=== PATIENT | female | born 1995 | race Caucasian/White ===

== ENCOUNTER 2017-07-13 22:23 | Emergency (ER) | payer MEDICAID, SELFPAY ==
[2017-07-13 22:24] VITALS: BP 118/75; PULSE 83; RESP 16; TEMP 36.7; O2SAT 98; BMI 26.2
--- NOTE | 2017-07-13 23:15 | RAD_ITS ---
STUDY: X-RAY - LUMBAR SPINE REASON FOR EXAM: Female, 22 years old. Lower back pain TECHNIQUE: 3 view(s) of the lumbar spine were obtained. COMPARISON: None FINDINGS: Normal lumbar lordosis. There is no substantial scoliosis. There is a normal alignment of the vertebrae. Normal vertebral bodies and endplates. Normal disc space heights. The soft tissue structures are unremarkable. RAD/Lumbar Spine 2 or 3 Views IMPRESSION: Normal x-ray examination of the lumbar spine. Electronically Signed: Yareli Murphy MD at 1:03 EDT Tel , Service support ,
[2017-07-13] MEDS: Orphenadrine 60 MG/2 ML Ampul IM (23:31)
[2017-07-13] MEDS: Ketorolac 30 MG/ML Syringe IM (23:31)
--- NOTE | 2017-07-13 23:41 | ED.VISSUMM ---
- ER Visit Summary Date of Service: 07/13/17 Chief Complaint: [] Back pain History of Present Illness: The patient is a 22 F [] complaining of acute on chronic back pain after reportedly falling down 12 steps. Patient denies hitting her head or neck. She reports she had a panic attack before falling on steps. She reports she has chronic back pain which she has received 2 spinal injections in the past from pain management. Denies any saddle anesthesia or incontinence. Does report slight radiation of the pain down her left lower extremity. Physical Examination: [] Afebrile, vital signs stable. 22-year-old female no acute distress. Examination of the back reveals mild mid line lumbosacral tenderness without step-off or gross deformity. Benign examination. Remainder of exam is unremarkable. Test Results: [] Lumbosacral x-rays 3 views reveal no acute process. Emergency Department Course and Treatment: [] Patient was given IM Toradol and IM Norflex for analgesia. Her mother is at the bedside will drive her home. X-rays were negative. Patient was encouraged to follow-up with pain management. Treatment Plan: [] Follow-up with PCP or pain management. Disposition: [] Discharge, stable. Impression: [] Acute on chronic back pain This note was generated with [employer] dictation software. It may contain incorrect words, spelling, and punctuation that were not noted in review of the chart prior to signing ED Disposition - Plan for ED Patient: Chief Complaint: Back Referrals: Hortencia Frias MD [Primary Care Provider] -
--- NOTE | 2017-07-13 23:43 | ED.DEP ---
ED Disposition - Plan for ED Patient: Disposition: Home or Assisted Living Chief Complaint: Back Instructions: ED Low Back Pain Injury Referrals: Hortencia Frias MD [Primary Care Provider] -
[2017-07-13 23:50] VITALS: BP 106/60; PULSE 78; RESP 16; O2SAT 99
== END 2017-07-13 23:51 | disposition home or self-care (01) ==
PROVIDERS: Emergency Provider Emergency Medicine; Family Provider Pediatrics; PCP Pediatrics
DX: M54.5 Low back pain (principal); G89.29 Other chronic pain
CPT/HCPCS: 72100; 96372; 99282

== ENCOUNTER 2017-12-11 22:00 | Emergency (ER) | payer MEDICAID, SELFPAY ==
[2017-12-11 22:01] VITALS: BP 130/72; PULSE 83; RESP 14; TEMP 37.1; O2SAT 98; BMI 26.2
[2017-12-11 22:05] VITALS: BP 130/72; PULSE 68; RESP 14; O2SAT 98
[2017-12-11] MEDS: Ketorolac 60 MG/2 ML Vial IM (22:57)
[2017-12-11] MEDS: Orphenadrine 60 MG/2 ML Ampul IM (22:58)
--- NOTE | 2017-12-11 23:56 | NURSING ---
ATTEMPTED TO AMBULATE PT WITH THE HELP OF FATHER AND BOY FRIEND. PT WAS ABLE TO STAINED AND SHUFFLE FOR 2 STEPS. GAIT WAS WEAK AND UNSTEADY. PLACED BACK IN BED AND DR IS INFORMED. ADDITIONAL MEDICATION PLACED. Mitch ESCOBAR RN. [id number]
--- NOTE | 2017-12-12 00:11 | RAD_ITS ---
STUDY: X-RAY - LUMBAR SPINE REASON FOR EXAM: Female, 22 years old. Chronic low back pain, no known injury. TECHNIQUE: 4 view(s) of the lumbar spine were obtained. COMPARISON: 07/13/2017. 09/23/2014. FINDINGS: Normal lumbar lordosis. There is no substantial scoliosis. There is a normal alignment of the vertebrae. Normal vertebral bodies and endplates. Normal disc space heights. Chronic spondylolysis without spondylolisthesis L4 on L5. The soft tissue structures are unremarkable. 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 His may be the source of patient's back pain. Further assessment with MRI could be providing additional detail. There is no significant interval change. Electronically Signed: aMvis Tillman MD at 1:07 EDT , Service support ,
--- NOTE | 2017-12-12 00:15 | ED.VISSUMM ---
- ER Visit Summary Date of Service: 12/12/17 Chief Complaint: Back pain History of Present Illness: The patient is a 22 F with low back pain. Patient has a long-term history of back pain on and off. She has had bone scans and injections. She presents today with pain in her bilateral lower back that started when she got out of bed this evening after she had been watching TV. No recent activities or injuries otherwise. No associated symptoms other than pain. She denies abdominal or GI symptoms. 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 Denies fevers. Denies any history of fractures or back surgery. No weakness or numbness, but her movement is limited secondary to pain. Physical Examination: Afebrile and vital signs unremarkable. Patient appears uncomfortable but is not toxic or in distress. Abdomen is soft and nontender. Lumbar back is diffusely tender to palpation. Straight leg raise is negative. Good strength and sensation distally. Test Results: See below Emergency Department Course and Treatment: Patient has been evaluated for this in the past. She has had negative x-rays and other imaging studies. She has received pain meds and muscle relaxers in the past and had good relief. I initially treated her with a dose of Toradol and Norflex. On reevaluation, she was unable to ambulate. She took a couple shuffling steps with the help of a nurse, but was unable to tolerate any additional ambulation secondary to pain. No new or different symptoms otherwise on reevaluation. Given the severity of her pain, lumbar x-rays were ordered. We will check some basic labs and a test. She was given a dose of morphine IV. The oncoming physician will check the results. I suspect she will need admission for intractable pain and inability to ambulate. Treatment Plan: As above Disposition: Admission pending further evaluation. Impression: 1. Intractable lumbar back pain This note was generated with [employer] dictation software. It may contain incorrect words, spelling, and punctuation that were not noted in review of the chart prior to signing ED Disposition - Plan for ED Patient: Chief Complaint: Back Referrals: Hortencia Frias MD [Primary Care Provider] -
[2017-12-12] MEDS: Morphine 4 MG/ML Syringe IV ×2 (00:16→01:25)
[2017-12-12 00:18] VITALS: BP 112/80; PULSE 79; RESP 16
--- NOTE | 2017-12-12 00:18 | ED.DCSUM_ITS ---
- ER Visit Summary Date of Service: 12/12/17 Chief Complaint: Back pain History of Present Illness: The patient is a 22 F with low back pain. Patient has a long-term history of back pain on and off. She has had bone scans and injections. She presents today with pain in her bilateral lower back that start ed when she got out of bed this evening after she had been watching TV. No recent activities or injuries otherwise. No associated symptoms other than pain. She denies abdominal or GI symptoms. Denies or SECURITIES ATTORNEY symptoms. Denies fevers. Denies any history of fractures or back surgery. No weakness or numbness, but her movement is limited secondary to pain. Physical Examination: Afebrile and vital signs unremarkable. Patient appears uncomfortable but is not toxic or in distress. Abdomen is soft and nontender. Lumbar back is diffusely tender to palpation. Straight leg raise is negative. Good strength and sensation distally. Test Results: See below Emergency Department Course and Treatment: Patient has been evaluated for this in the past. She has had negative x-rays and other imaging studies. She has received pain meds and muscle relaxers in the past and had good relief. I initially treated her with a dose of Toradol and Norflex. On reevaluation, she was unable to ambulate. She took a couple shuffling steps with the help of a nurse, but was unable to tolerate any additional ambulation secondary to pain. No new or different symptoms otherwise on reevaluation. Given the severity of her pain, lumbar x-rays were ordered. We will check some basic labs and a test. She was given a dose of morphine IV. The oncoming physician will check the results. I suspect she will need admission for intractable pain and inability to ambulate. Treatment Plan: As above Disposition: Admission pending further evaluation. Impression: 1. Intractable lumbar back pain This note was generated with [employer] dictation software. It may contain incorrect words, spelling, and punctuation that were not noted in review of the chart prior to signing ED Disposition - Plan for ED Patient: Chief Complaint: Back Referrals: Hortencia Frias MD [Primary Care Provider] -
[2017-12-12 00:36] LABS: Absolute Lymphocyte Count 2.89 X10^3/ul (0.83-4.51); Absolute Neutrophil Count 4.5 X10^3/uL (2.0-7.7); Basophil# 0.03 X10^3/uL; Basophil% 0.4 % (0-1); Eosinophil# 0.09 X10^3/uL; Eosinophils% 1.1 % (0-5); Hematocrit 39.1 % (37-47); Hemoglobin 13.1 g/dl (12.0-15.0); Lymphocyte # 2.89 X10^3/ul (4.0); Lymphocyte % 35.9 % (19-41); Mean Corp Hgb Conc 33.5 g/gl (32-36); Mean Corpuscular Hgb 31.6 pg (27.0-32.0); Mean Corpuscular Volume 94.2 fL (81-99); Mean Platelet Vol. 11.7 fl (6.2-12.0); Monocyte# 0.57 X10^3/uL; Monocyte% 7.1 % (0-10); Neutrophil # 4.45 X10^3/uL (2.7-7.7); Neutrophil % 55.3 % (47-70); POSITIVE COUNT NO; POSITIVE DIFFERENTIAL NO; POSITIVE MORPHOLOGY NO; Platelet Count 251 K/mm3 (150-450); RBC Distribution Width CV 11.8 % (11.6-14.6); Red Blood Count 4.15 M/mm3 (4.2-5.4); White Blood Count 8.1 K/mm3 (4.4-11.0)
[2017-12-12 00:45] LABS: Anion Gap 6 (5-15); BUN 12 mg/dL (7-18); BUN/Creat Ratio 15.2 RATIO (10-20); Calcium,Total 8.6 mg/dL (8.5-10.1); Chloride 109 mmol/L (98-107); Creatinine, Serum 0.79 mg/dL (0.55-1.02); EST Glomerular Filtration Rate 98 mL/min (>60); Est Glom Filt Rate - Afr Amer 119 mL/min (>60); Estimated Creatinine Clearance 93.97 ml/min; Glucose 104 mg/dL (74-106); Potassium 3.9 mmol/L (3.5-5.1); Sodium Level 142 mmol/L (136-145)
[2017-12-12 00:53] LABS: Pregnancy, Serum, hCG Quali. NEGATIVE Negative (0-9 Nonpreg)
[2017-12-12 03:12] LABS: Erythrocyte Sedimentation Rate < 1 mm/hr (0-20)
[2017-12-12 03:14] LABS: CRP 2.91 mg/L (0.0-3.0)
[2017-12-12 03:26] VITALS: BP 112/70; PULSE 82; RESP 18; O2SAT 99
[2017-12-12 03:35] VITALS: BP 112/70; PULSE 82; RESP 18; O2SAT 99
== END 2017-12-12 05:02 | disposition short-term general hospital (02) ==
PROVIDERS: Emergency Medicine; Emergency Provider Emergency Medicine; Family Provider Pediatrics; PCP Pediatrics
DX: M54.5 Low back pain (principal); M54.16 Radiculopathy, lumbar region; Z79.3 Long term (current) use of hormonal contraceptives
CPT/HCPCS: 72100; 80048; 84703; 85025; 85652; 86140; 96372; 96374; 96376; 99285; A4216

== ENCOUNTER 2018-12-10 12:53 | Emergency (ER) | payer MEDICAID, SELFPAY ==
[2018-12-10 12:54] VITALS: BP 114/71; PULSE 96; RESP 16; TEMP 36.5; O2SAT 100; BMI 27.9
--- NOTE | 2018-12-10 13:09 | EKG12_ITS ---
Test Reason : ABD PAIN Blood Pressure : / mmHG Vent. Rate : 080 BPM Atrial Rate : 080 BPM P-R Int : 160 ms QRS Dur : 076 ms QT Int : 348 ms P-R-T Axes : 052 036 034 degrees QTc Int : 401 ms Normal sinus rhythm Normal ECG Confirmed by GREGORY RCUZ, CHRISTINE ([id number]), slot editor ROBY WILLS ([id number]) on 12/15/2018 8:38:47 AM Referred By: SARAH Confirmed By:CHRISTINE JENKINS MD
--- NOTE | 2018-12-10 13:10 | CT_ITS ---
STUDY: CTA CHEST REASON FOR EXAM: Female, 23 years old. 3 day history of chest pain and nausea. The patient is 24 weeks . The patient was shielded appropriately. RADIATION DOSAGE (If Supplied By Facility): CTDIvol = ( 13.72 ) mGy, DLP = ( 370.79 ) mGycm TECHNIQUE: The examination was performed with the intravenous administration of IV Isovue 370 100. Post-processing of the angiographic images was performed, with multiplanar reformation and 3D reconstruction. Individualized dose optimization techniques were used for this CT. COMPARISON: None. FINDINGS: Normal enhancement of the main pulmonary artery and right and left pulmonary arteries. Normal enhancement of the bilateral peripheral pulmonary arteries. There is no demonstrated pulmonary embolism. Normal thoracic aorta and visualized great vessels. There is no demonstrated aortic dissection. Normal heart and pericardium. Normal mediastinum. Normal hilar regions. Normal visualized trachea and bronchi. The lungs are well expanded. Normal pulmonary parenchyma. Normal pleura. Normal chest wall structures. Normal osseous structures. Normal visualized upper abdomen. CT/CTA Chest W/WO Contrast IMPRESSION: Normal CTA chest examination, without a demonstrated pulmonary embolism or arterial dissection. Electronically Signed: Juan Marie, at 14:17 EDT , Service support ,
--- NOTE | 2018-12-10 13:10 | ED.DCSUM_ITS ---
- ER Visit Summary Date of Service: 12/10/18 Chief Complaint: Abdominal and chest pain History of Present Illness: The patient is a 23 F who presents with upper abdominal and chest pain that has been constant for the past 3 days. Patient admits to stabbing pain in her upper abdomen and substernal area. Patient states this is worse with coughing and with movement. Patient states the pain improves with rest and keeping still. Patient admits to an episode of hemoptysis yesterday where she coughed up approximately a teaspoon of blood. Patient admits to some shortness of breath. Patient also admits to some nausea and vomiting. Patient is approximately 24 weeks . Patient also admits to some pain in her back but states she has a history of prior back problems. Physical Examination: Vital signs are stable. Patient is afebrile. Patient is in no acute distress. Oral mucosa is pink and moist. Neck is supple. Trachea is midline. There is no JVD. Heart was regular rate and rhythm. Lungs are clear and equal bilaterally. Abdomen is soft. Bowel sounds are normal. There is epigastric tenderness. There is no rebound or guarding noted. There is a gravid uterus noted. Cranial nerves II through XII are intact. There are no focal motor or sensory deficits noted. Test Results: EKG showed sinus rhythm with a rate of 80. There are no acute ST or T wave changes. CBC shows a mild leukocytosis of 16.0 with a hemoglobin of 11.7 and hematocrit 35.0. These are likely related to the . Comprehensive metabolic profile was normal. Urinalysis was normal. CT scan of the chest was obtained. There is no evidence of pulmonary embolism. Emergency Department Course and Treatment: Patient still had some epigastric pain on reevaluation. Patient states that her GOLF BALL INSPECTOR wants her to go to the women's health clinic from the emergency department for further evaluation. Patient understands and is agreeable with the plan. All questions were answered. Disposition: Discharge home Impression: Epigastric abdominal pain This note was generated with [employer] dictation software. It may contain incorrect words, spelling, and punctuation that were not noted in review of the chart prior to signing ED Disposition - Plan for ED Patient: Disposition: Home or Assisted Living Diagnosis: Chest pain, Instructions: ABDOMINAL PAIN, Unknown Cause, (Female) Referrals: Hortencia Frias MD [Primary Care Provider] - 5-7 Days Anna Bhakta MD [STAFF PHYSICIAN] - Keep Bhupinder appointment
[2018-12-10 13:15] VITALS: BP 94/69; PULSE 83; RESP 15; O2SAT 98
[2018-12-10] MEDS: 0.9% Normal Saline 1,000 ML 1000 ML IV (13:16)
[2018-12-10 13:29] LABS: Absolute Lymphocyte Count 1.46 X10^3/uL (0.83-4.51); Absolute Neutrophil Count 13.4 X10^3/uL (2.0-7.7); Basophil# 0.05 X10^3/uL; Basophil% 0.3 % (0-1); Eosinophil# 0.05 X10^3/uL; Eosinophils% 0.3 % (0-5); Hemoglobin 11.7 g/dL (12.0-15.0); Lymphocyte # 1.46 X10^3/ul (4.0); Lymphocyte % 9.1 % (19-41); Mean Corp Hgb Conc 33.4 g/dL (32-36); Mean Corpuscular Hgb 32.7 pg (27.0-32.0); Mean Corpuscular Volume 97.8 fL (81-99); Mean Platelet Vol. 10.8 fl (6.2-12.0); Monocyte# 0.89 X10^3/uL; Monocyte% 5.6 % (0-10); NRBC Flagged by Analyzer 0 % (0-5); Neutrophil # 13.41 X10^3/uL (2.7-7.7); Neutrophil % 83.6 % (47-70); Platelet Count 231 K/mm3 (150-450); RBC Distribution Width CV 12.9 % (11.6-14.6); RBC Distribution Width SD 46.2 fl (35.1-43.9); Red Blood Count 3.58 M/mm3 (4.2-5.4)
[2018-12-10 13:31] LABS: Mucous, Urine 0 SEEN /hpf (<or=2+); Red Blood Cells-Urine 0 SEEN /hpf (0-5)
[2018-12-10 13:33] LABS: Color, Urine Yellow (Yellow); Glucose, Dipstick Normal (Normal); Ketone-Dipstick Negative (Negative); Leukocyte Esterase-Dipstick 25 /ul (Negative); Nitrite-Dipstick Negative (Negative); Occult Blood-Urine Negative /ul (Negative); Protein-Dipstick Negative (Negative); Urine Bilirubin Dipstick Negative (Negative); Urine Clarity Sl. Cloudy (Clear); Urine Urobilinogen Normal (Normal); Urine pH 6.5 (5.0 - 8.0)
[2018-12-10 13:43] LABS: ALB/GLOB Ratio 0.7 RATIO (0.9-2.4); AST(SGOT) 13 U/L (15-37); Alanine Aminotransfer ALT/SGPT 26 U/L (13-56); Albumin, Serum 2.8 g/dL (3.2-5.0); Alkaline Phosphatase 75 U/L (45-117); Anion Gap 7 (5-15); BUN 9 mg/dL (7-18); BUN/Creat Ratio 17.5 RATIO (10-20); Calcium,Total 8.7 mg/dL (8.5-10.1); Chloride 107 mmol/L (98-107); Creatinine, Serum 0.52 mg/dL (0.55-1.02); EST Glomerular Filtration Rate 159 mL/min (>60); Est Glom Filt Rate - Afr Amer 193 mL/min (>60); Estimated Creatinine Clearance 141.57 ml/min; Glucose 85 mg/dL (74-106); Lipase 76 U/L (73-393); Potassium 3.7 mmol/L (3.5-5.1); Protein, Total 6.8 g/dL (6.4-8.2); Sodium Level 139 mmol/L (136-145)
[2018-12-10 13:47] LABS: Bacteria 2+ /hpf (None Seen); Squamous Epithelial Cells - UA 0-5 SEEN /hpf (5-10); White Blood Cells 0-5 SEEN /hpf (0-5)
--- NOTE | 2018-12-10 13:48 | ED.RN ---
NO OLD EKG
--- NOTE | 2018-12-10 14:19 | ED.RN ---
YANE CLEMENT CALLED DR SHIELDS WANTS THE PATIENT TO CALL THE OFFICE IF SHE STILL FEELS SHE NEEDS TO BE SEEN.
[2018-12-10 14:42] VITALS: BP 91/57; PULSE 87; RESP 14; O2SAT 100
[2018-12-10 15:22] VITALS: BP 105/77; PULSE 68; RESP 15; O2SAT 98
== END 2018-12-10 15:23 | disposition home or self-care (01) ==
PROVIDERS: Emergency Provider Emergency Medicine; Family Provider Pediatrics; PCP Pediatrics
DX: O26.892 Other specified pregnancy related conditions, second trimester (principal); Z3A.24 24 weeks gestation of pregnancy; R07.9 Chest pain, unspecified; R10.13 Epigastric pain; R06.02 Shortness of breath; R11.2 Nausea with vomiting, unspecified
CPT/HCPCS: 71275; 80053; 81001; 83690; 85025; 93005; 99285; J7030; Q9967; A4216

== ENCOUNTER 2018-12-10 20:36 | Inpatient (IN) | payer MEDICAID, SELFPAY ==
[2018-12-10 12:54] VITALS: BMI 27.9
[2018-12-10 20:37] VITALS: BP 106/66; PULSE 100; RESP 18; TEMP 36.7; O2SAT 96; BMI 28.1
--- NOTE | 2018-12-10 21:10 | CT_ITS ---
STUDY: CT ABDOMEN AND PELVIS WITHOUT CONTRAST REASON FOR EXAM: Female, 23 years old. Right sided abdominal/flank pain radiating into the groin. 24 weeks . Sent to ER by FERRY OPERATOR for appendicitis. RADIATION DOSAGE (If Supplied By Facility): CTDIvol = ( 6.68 ) mGy, DLP = ( 328.74 ) mGycm TECHNIQUE: Transaxial images were obtained from the dome of the diaphragm to the symphysis pubis with oral contrast, and without intravenous contrast. Sagittal and coronal images were reconstructed. Individualized dose optimization techniques were used for this CT. COMPARISON: CTA of the chest, December 10, 2018. FINDINGS: The visualized lung bases are unremarkable. The visualized portions of the heart are within normal limits. Normal liver. Normal gallbladder and extrahepatic biliary system. Normal spleen. Normal pancreas. Normal bilateral adrenal glands. Normal right kidney. Normal left kidney. Contrast from the prior CT is seen within the renal collecting systems and ureters. Normal visualized stomach. Normal small intestine. Normal colon. There is no acute inflammatory process in the right mid abdomen just below the liver. This is thought to be secondary to appendicitis. There is a tubular soft tissue density in the middle of the inflammatory change measuring 1.1 cm in diameter. Normal abdominal aorta. Normal inferior vena cava. Normal retroperitoneum. Urinary bladder is partially collapsed and opacified by contrast. Uterus is markedly enlarged. There is an intrauterine in cephalic presentation. The placenta appears anterior. The adnexa are not identified. No free air or free fluid is seen within the peritoneal cavity. Umbilical hernia of omental fat. Normal osseous structures. CT/Abdomen/Pel W ORAL Cont Only IMPRESSION: 1. Inflammatory change in the right mid abdomen consistent with appendicitis. 2. Advanced intrauterine . N.B. : The above information has been verbally conveyed by Ed Coronado DO to Katelyn Lombardi MD, on 12/10/2018 23:08:39 (ET). Electronically Signed: Ed Coronado DO at 23:09 EDT Tel [phone], Service support ,
[2018-12-10] MEDS: Ondansetron 4 MG/2 ML Vial IV (21:28)
[2018-12-10] MEDS: Morphine 4 MG/ML Syringe IV (21:28)
[2018-12-10 21:41] LABS: Absolute Lymphocyte Count 1.93 X10^3/uL (0.83-4.51); Absolute Neutrophil Count 14.5 X10^3/uL (2.0-7.7); Basophil# 0.05 X10^3/uL; Basophil% 0.3 % (0-1); Eosinophil# 0.03 X10^3/uL; Eosinophils% 0.2 % (0-5); Hematocrit 33.1 % (37-47); Lymphocyte # 1.93 X10^3/ul (4.0); Mean Corp Hgb Conc 33.2 g/dL (32-36); Mean Corpuscular Hgb 32.7 pg (27.0-32.0); Mean Corpuscular Volume 98.5 fL (81-99); Mean Platelet Vol. 11.4 fl (6.2-12.0); Monocyte# 0.93 X10^3/uL; Monocyte% 5.3 % (0-10); NRBC Flagged by Analyzer 0 % (0-5); Neutrophil # 14.46 X10^3/uL (2.7-7.7); Neutrophil % 82.3 % (47-70); Platelet Count 234 K/mm3 (150-450); RBC Distribution Width CV 12.9 % (11.6-14.6); RBC Distribution Width SD 46.1 fl (35.1-43.9); Red Blood Count 3.36 M/mm3 (4.2-5.4); White Blood Count 17.6 K/mm3 (4.4-11.0)
--- NOTE | 2018-12-10 22:39 | ED.VISSUMM ---
- ER Visit Summary Date of Service: 12/10/18 Chief Complaint: Abdominal pain History of Present Illness: The patient is a 23 F presenting with abdominal pain. She states this started 3 days ago. She has nausea with no vomiting. She denies fever. She is 24.5 weeks . She denies vaginal bleeding. She is G1, P0. She was seen in the ED earlier today and had a CT of her chest to rule out PE. Pain is now more in the periumbilical area. She followed up with her PHOTOGRAPHY PROFESSOR after her ER visit today. Discussed with Dr. Millan. She states from an obstetrical standpoint she has been monitored and there is no concern with the baby. She is concerned about possibility of appendicitis. She feels patient will need a CT of her abdomen to rule out appendicitis. Physical Examination: Vitals are stable. Patient is afebrile. Alert no acute distress. HEENT exam is unremarkable. Neck is supple. Lungs are clear and equal bilaterally. Heart is regular rate and rhythm. Abdomen is soft gravid, diffuse tenderness. Extremities are unremarkable. Skin is warm and dry. No focal neurologic deficit. Remainder of exam is unremarkable. Emergency Department Course and Treatment: Patient was given morphine, Zofran IV. CBC shows a white count 17.6. CT abdomen pelvis shows inflammatory change in the right mid abdomen consistent with appendicitis. Advanced intrauterine . heart tones 146. Patient was given Zosyn IV. Discussed with Dr. Millan and Dr. Martinez. Patient will be evaluated by Dr. Martinez in the emergency department. Disposition: Admission Impression: Acute appendicitis, second trimester This note was generated with [employer] dictation software. It may contain incorrect words, spelling, and punctuation that were not noted in review of the chart prior to signing ED Disposition - Plan for ED Patient: Referrals: Hortencia Frias MD [Primary Care Provider] -
[2018-12-10 23:06] VITALS: BP 98/58; PULSE 89; RESP 15; O2SAT 99
[2018-12-11] VITALS (13 sets, daily range): BP systolic 93–128; BP diastolic 52–80; PULSE 78–117; RESP 14–20; TEMP 36.2–37.7; O2SAT 94–99; BMI 28.1; BMI 28.2
--- NOTE | 2018-12-11 | IMM_PTH ---
PATIENT: RODRIGO TAN LOC: MS3 U#:[id number] AGE/SX: 23/F ROOM: MS317 RE12/11/[address]: Dr. Shirley Martinez MD : 1995 BED: 1 DIS: 12/13/2018 SPEC #: [id number] RECD: 12/12/18 11:26 STATUS: DAVINA REQ #: [id number] MILI: 12/11/18 00:[address]: Shirley Martinez DEPT: IMMUNOHISTOCHEMISTRY RECD BY: Johanny Friend ENTERED: 12/12/18 11:28 SP TYPE: IMMUNO OTHR DR: Dr. Hortencia Frias MD Tissues: B - TISSUE SURGICALLY REMOVED Procedures: Brock Ret (add) HBME (add) Vimentin (add) Pankeratin (initial) PHYSICIAN & INSTITUTION [place] [id number] SPECIMEN INFORMATION: Tissue Source: B - Inflammatory mass Clinical Info: Appendicitis Specimen Number: [id number] CPT code: 41233, 05669 x3 METHODOLOGY: Deparaffinized sections of prefer/formalin-fixed tissue or PAP/DQ stained slides are incubated with monoclonal/polyclonal antibodies/oligonucleotide probes. Localization is made via biotin free immunoperoxidase method. Appropriate controls are performed and reacted as expected. Results on target cell population are indicated in the following table: RESULTS: ANTIBODY / CLONE RESULT Block B2 AE1-3 (AE1/AE3/PCK26) positive Vimentin (V9) positive HBME1 (HBME-1) positive CALRET (polyclonal) positive These tests were developed and their performance characteristics determined by [facility]. They may not have been cleared or approved by the U.S. Food and Drug Administration. The FDA has determined that such clearance or approval is not necessary. The above immunohistochemical/dualISH markers are ordered and reviewed by the Pathologist. INTERPRETATION: B. Inflammatory mass, biopsy: Consistent with benign mesothelial cyst. AM:max 12/15/18
--- NOTE | 2018-12-11 00:30 | PCM.CONS.B ---
- Consult Date of Consult: 12/10/18 - Reason for Consult Chief Complaint: abdominal pain History of Present Illness: 23 y/o WF presents with abdominal pain. She states that it started about three days ago. She complains of nausea, but denies emesis. Initially upper abdominal pain and concern was for PE and she underwent chest CT (negative for PE) earlier today. Now pain noted in right lateral aspect and CT scan was obtained of the abdomen which reveals appendicitis. The patient is 24 weeks - intrauterine - first . Has leukocytosis of 17.6K Past Medical History: denies major medical illnesses Past Surgical History: wisdom teeth extraction Medications: vitamins Allergies: Has no known drug allergies Social history: TOB use denies Review of Systems: General - denies fevers Cardiovascular denies chest pain, denies history of heart attack, denies heart problems Pulmonary denies shortness of breath, denies coughing up blood Gastrointestinal as per HPI, denies blood in stools Neurological denies numbness/weakness of extremities, denies seizures Genitourinary denies burning with urination, denies blood in urine Hematological denies spontaneous/prolonged bleeding Skin denies open non healing wounds Musculoskeletal denies history of fractures, denies arthritis Endocrine denies diabetes Psychological denies suicidal ideation, denies hallucinations Physical examination: Vital signs Temp 98.1F HR 89 RR 16 BP 108/72 General WD/WN WF in no apparent distress, alert and oriented, not septic appearing HEENT Normocephalic. EOM intact with sclera clear and no icterus noted. Neck is supple with no jugular venous distention noted. Trachea is midline. Lungs normal breath sounds. No rales/rhonchi/wheezing noted. No labored breathing noted, such as retractions. No cough heard. Heart normal heart sounds. No rubs/clicks/murmurs noted. Abdomen soft with gravid uterus with tenderness right lateral to umbilicus, decreased bowel sounds Extremities no calf tenderness noted. No pitting edema noted. Genitourinary/Rectal deferred Skin normal skin integrity. Neurological cranial nerves II-XII intact. Normal motor strength in arms and legs. No localized numbness detected. Psychological normal affect, patient is calm and appropriate Impression: abdominal pain appendicitis by CT scan leukocytosis Discussion/Plan: I have discussed the above with the patient - also present are patient's parents and boyfriend. I have recommended that patient undergo appendectomy. Given that she is 24 weeks and if she were to deliver prematurely, I have offered transfer to [facility] for intensive nursery care of the premature baby. She refuses and wishes to have surgery at [place]. I have explained the procedure to the patient. I have counseled the patient as to the risks of the procedure, including but not limited to: infection, bleeding, injury to any blood vessels/nerves, scar tissue, injury to any intraabdominal organs, injury to kidney/ureters, injury to bowel/bladder, intraabdominal abscess/bleeding, hernias at incisional sites, wound infections, complications of anesthesia, premature delivery of , etc. the patient understands. She wishes to proceed. I have answered all questions to the patient?s satisfaction and the patient has no further questions.
--- NOTE | 2018-12-11 01:30 | APP_PTH ---
PATIENT: RODRIGO TAN LOC: MS3 U#:[id number] AGE/SX: 23/F ROOM: MS317 RE12/11/[address]: Dr. Shirley Martinez MD : 1995 BED: 1 DIS: 12/13/2018 SPEC #: [id number] RECD: 12/11/18 08:28 STATUS: DAVINA REQ #: [id number] MILI: 12/11/18 01:[address]: Shirley Martinez DEPT: SURGICAL PATHOLOGY RECD BY: Keenan Ruano ENTERED: 12/11/18 08:59 SP TYPE: APPENDIX OTHR DR: Dr. Hortencia Frias MD Tissues: A - Appendix, NOS B - TISSUE SURGICALLY REMOVED Procedures: Surgery Specimen Level III Surgery Specimen Level IV HEADER OPERATION: Appendectomy PRE-OP DIAGNOSIS: Acute appendicitis TISSUE SUBMITTED: A - Appendix, B - Inflammatory mass MICROSCOPIC DIAGNOSIS A. Appendix, appendectomy: Early acute appendicitis. B. Inflammatory mass, biopsy: Fibrovascular tissue with vascular congestion., edema, fibrinoid material and focal acute and chronic inflammation. See comment. 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 Immunohistochemistry ([id number]) supports the above diagnosis. This case was reviewed and diagnosis discussed with Dr. Martinez on 12/11/18. Case has been reviewed in consultation with Dr. Graham who concurs with the above diagnosis. IDC:SJ MICROSCOPIC DESCRIPTION Slides are reviewed. GROSS DESCRIPTION A - Received is one container labeled with the patient's name and designated appendix. The specimen consists of a vermiform appendix measuring 7.6 cm in length and 0.7 cm in greatest diameter. No gross perforations are evident. Stenciling Machine Tender sections are submitted in one cassette. B - Received in fixative is one container labeled with the patient's name and designated inflammatory mass. The specimen consists of a glistening fragment of light to dark hoskins tissue measuring 6.5 x 2 x 1.3 cm. Sections reveal dark hoskins cut surfaces. The specimen is sectioned and submitted in its entirety in four cassettes. / AM:max 12/11/18 TC:1 CPT: 15309, 89912
--- NOTE | 2018-12-11 03:02 | OP.PCM_ITS ---
Report of Operation Date of Procedure: 12/11/18 Pre-Operative Diagnosis: right sided abdominal pain, appendicitis by CT scan, leukocytosis Post-Operative Diagnosis: right sided abdominal pain, inflammatory mass at site of pain, normal appearing appendix Surgery/Procedure Performed:: appendectomy, excision of inflammatory mass Description of Surgical Findings:: inflammatory mass at site of patient's pain - with surrounding adherent omentum with inflammatory changes, normal appearing appendix computer programming manager: Evelio Ramos Type of Anesthesia:: General Anesthesiologist: Clinton Diallo Specimen's removed: inflammatory mass, appendix Estimated Blood Loss (mL): < 5 ml Fluids Replaced: 1000 ml RL Description of Procedure: After informed consent was given, the patient was brought to the Operating Room. Appropriate time out protocol was followed. She was then placed in the supine position. The abdomen was prepped with a sterile surgical skin preparation and sterile surgical drapes were placed. A transverse right mid abdominal incision was then made with a 10 blade scalpel after ascertaining proper landmarks. This site had been previously marked out as to the location that the patient states that she has pain. The skin and subcutaneous tissues were infiltrated with local anesthetic. The subcutaneous tissues were then divided sharply and any hemorrhage was adequately controlled with electrocoagulation. The external oblique fascia and then the internal oblique fascia was incised and the lateral part of the anterior/posterior fascial sheath and musculature were then divided. The transversalis fascia and peritoneum were then opened, carefully avoiding any injury to any intraabdominal tissues. Palpation of the internal organs of the abdomen reveals a firm object at the site of the patient's pain. It was brought up through the incision. It was not the appendix. However, it was inflamed and bluish in coloration and there was inflamed omentum surrounding it. There was also cloudy peritoneal fluid surrounding it. It was then from the surrounding tissues using electrocautery. There did not appear to be a vascular pedicle. It was forwarded to pathology for analysis. The search for the appendix was then done. Palpation of the intraabdominal cavity revealed no other indurated or inflamed masses. The small bowel was brought out to look for a Meckel's - no Meckel's diverticulum was identified. The cecum and terminal ileum was brought out via the wound and the appendix was identified. It appeared normal in nature. The mesentery of the appendix was divided and then ligated with vicryl suture. The base of the appendix was then freed and clamped. The distal aspect was transected after the base of the appendix was tied with 0 vicryl suture. The mucosa of the appendix was then cauterized. The appendiceal stump was then inverted into the cecum with a Z-plasty suture of 3-0 vicryl. The area of dissection was carefully examined and there was no evidence of bleeding or fecal leakage. The transversalis fascia and peritoneum were then approximated with 3-0 vicryl suture. The internal oblique fascia and the external oblique fascia and the posterior and anterior fascia were the reapproximated with interrupted 0 vicryl suture. The Chuy's fascia was reapproximated with 3-0 vicryl suture. Each layer was irrigated with normal saline prior to closure and all irrigant aspirated out. The skin incision was t hen reapproximated with 4-0 monocryl. Cavilon and steristrips were placed for reinforcement of skin closure and a proper sterile dressing was applied. The patient was then extubated and brought to the Recovery Room in stable condition. heart tones were 128. - Complications none noted - Admit VTE Documentation VTE Present on Admission: Yes VTE Mechan Device Prophylaxis: SCD's
[2018-12-11] MEDS: Lactated Ringers 1,000 ML 75 ML IV (03:15)
[2018-12-11] MEDS: Morphine 4 MG/ML Syringe IV ×4 (06:10→21:12)
--- NOTE | 2018-12-11 08:08 | PN.OBGYN_ITS ---
Subjective: pt seen at bedside, painful at incision site. denies VB, LOF, contractions. ambulating and + voiding. Still with some nausea but no vomiting. - Physical Exam Vitals/I&O's: Vital Signs Temp Pulse Resp BP Pulse Ox 97.3 F L 87 16 93/55 L 95 12/11/18 05:45 12/11/18 05:45 12/11/18 05:45 12/11/18 05:45 12/11/18 05:45 Oxygen Delivery Method Room Air Weight: 72.121 kg Body Mass Index (BMI) 28.1 Intake and Output for Last 24 Hours 12/09/18 12/10/18 12/11/18 23:59 23:59 23:59 Intake Total 1330 / 1330 Balance 1330 / 1330 General: Alert, Oriented x3 Abdomen: Soft, Gravid, - - appropriately tender. incision dressing dry and intact Laboratory Results 12/10/18 21:00: WBC 17.6 H, RBC 3.36 L, Hgb 11.0 L, Hct 33.1 L, MCV 98.5, MCH 32.7 H, MCHC 33.2, RDW Std Deviation 46.1 H, RDW Coeff of Jeremy 12.9, Plt Count 234, MPV 11.4, Immature Gran % (Auto) 0.900, Neut % (Auto) 82.3 H, Lymph % (Auto) 11.0 L, [place] % (Auto) 5.3, Eos % (Auto) 0.2, Baso % (Auto) 0.3, Absolute Neuts (auto) 14.5 H, Absolute Lymphs (auto) 1.93, Nucleated RBC % 0 Current Medications Lactated Ringer's () 1,000 mls @ 75 mls/hr IV .[id number] OSCAR Last Infusion: 12/11/18 06:59 Dose: 75 mls/hr Documented by: Morphine Sulfate () 4 mg IV Q1H PRN PRN PRN Reason: Pain Score 6-10/10 Last Admin: 12/11/18 06:10 Dose: 4 mg Documented by: Ondansetron HCl (Zofran) 4 mg IV Q8H PRN PRN PRN Reason: NAUSEA/VOMITING Medical Necessity - Tobacco Use Smoking Status: Never smoker Assessment/Plan POD#0- s/p Appendectomy and removal of inflamed cyst by GEN SURG Dr. Martinez 1) mgmt by gen surgery- Obstetrically pt is stable at this time - FHR remains category 1 no contractions noted. 2) pt to follow up next week for OB exam 3) defer further mgmt to gen surg
--- NOTE | 2018-12-11 11:37 | DCINST_ITS ---
Discharge Diet: - - clear liquids (no carbonated beverages) until able to pass flatus, then can advance yourself to a regular diet as tolerated Discharge Activity: Return to Normal Activity, May not drive while taking narcotic pain medications. Lifting Restrictions: no lifting greater than 20 pounds for 1 month Call your doctor if your incision/area has: Continuous Slow Oozing, Foul Smelling Discharge Call your doctor if you observe: Fever of 101 or Higher Additional Dressing/Incision Instructions:: leave dressing in place. May get wet in shower. Do not soak - no tub baths/swimming Medications to take at Discharge 105/Iron/Folic AC/Dha [Prena1 True Combo Pack] 1 tab PO DAILY 12/10/18 Allergies/Adverse Reactions: Allergies pumpkin Allergy (Verified 12/10/18 20:40) Hives Primary Care Physician: Hortencia Frias MD [Primary Care Provider] - Test Results: Test results from this visit will be discussed in further detail at your follow- up appointment, if applicable. Please Follow Up With: Shirley Martinez MD - call When: to be seen on December 15, please call for time, thank you
--- NOTE | 2018-12-11 12:55 | PCM.PN.SRG ---
Subjective: POD#1 s/p laparoscopic appendectomy and excision of inflammatory mass. Patient awake and resting comfortably in bed at time of visit. Notes abdomen is still very tender at operative site. Has not yet had a bowel movement or passed flatus. Denies nausea or vomiting, tolerating a clear liquid diet. Has only ambulated to/from bathroom a couple of times, states became painful and lightheaded and has been mostly laying in bed since. - Physical Exam Vitals/I&O's: Vital Signs Temp Pulse Resp BP Pulse Ox 97.3 F L 87 16 93/55 L 95 12/11/18 05:45 12/11/18 05:45 12/11/18 05:45 12/11/18 05:45 12/11/18 05:45 Oxygen Delivery Method Room Air Weight: 159 lb Body Mass Index (BMI) 28.1 Intake and Output for Last 24 Hours 12/09/18 12/10/18 12/11/18 23:59 23:59 23:59 Intake Total 1330 / 1330 Output Total 200 / 200 Balance 1130 / 1130 General: Alert, Oriented x3, Cooperative, No apparent distress HEENT: Atraumatic, Normocephalic Oral: Moist Mucosa Neck: Supple, No JVD Lungs: Clear to auscultation, Normal air movement Cardiovascular: Regular rate, Regular Rhythm Abdomen: Bowel Sounds Not Present, Gravid, Tender - diffuse TTP without rebound or guarding, worse in RLQ Extremities: No clubbing, No cyanosis, No edema Skin: No rashes, No breakdown Laboratory Results 12/10/18 21:00: WBC 17.6 H, RBC 3.36 L, Hgb 11.0 L, Hct 33.1 L, MCV 98.5, MCH 32.7 H, MCHC 33.2, RDW Std Deviation 46.1 H, RDW Coeff of Jeremy 12.9, Plt Count 234, MPV 11.4, Immature Gran % (Auto) 0.900, Neut % (Auto) 82.3 H, Lymph % (Auto) 11.0 L, [place] % (Auto) 5.3, Eos % (Auto) 0.2, Baso % (Auto) 0.3, Absolute Neuts (auto) 14.5 H, Absolute Lymphs (auto) 1.93, Nucleated RBC % 0 Current Medications Lactated Ringer's () 1,000 mls @ 75 mls/hr IV .[id number] OSCAR Last Infusion: 12/11/18 06:59 Dose: 75 mls/hr Documented by: Morphine Sulfate () 4 mg IV Q1H PRN PRN PRN Reason: Pain Score 6-10/10 Last Admin: 12/11/18 09:22 Dose: 4 mg Documented by: Ondansetron HCl (Zofran) 4 mg IV Q8H PRN PRN PRN Reason: NAUSEA/VOMITING Medical Necessity - Tobacco Use Smoking Status: Never smoker Assessment/Plan I have reviewed my findings with Dr. Martinez, who also participated in development of the following plan. POD#1 s/p laparoscopic appendectomy and excision of inflammatory mass, patient currently 24.5 weeks Patient evaluated by OB earlier, obstetrically stable. Appreciate OB input. Saline lock IVF, stressed importance of frequent ambulation and sitting upright in chair with assistance Transition from IV to oral pain medication. Reviewed with Dr. Millan, per OB ok to use percocet sparingly for acute pain, or regular tylenol. May gradually advance diet as tolerated once bowel sounds improving and passing flatus Not ready for d/c at this time, will continue to monitor. Dr. Martinez will re-evaluate patient later today
--- NOTE | 2018-12-11 17:41 | NURSING ---
1700 Dr Martinez in room to assess pt and give transfer order for [facility], plans to keep pt overnight, 1730. pt transfered to [facility] via w/c and report given to Yeimi. pt ambulated on floor and tolerated well.
[2018-12-11] MEDS: Acetaminophen 325 MG Tablet PO ×2 (18:33→23:53)
--- NOTE | 2018-12-11 19:53 | NURSING ---
This RN assessed FHR via doppler with patient lying semi fowlers; FHR 140's for approx 60 seconds; patient states she is having movement and denies any further needs at this time.
[2018-12-12 02:07] VITALS: BP 96/48; PULSE 96; RESP 16; TEMP 36.7; O2SAT 94
[2018-12-12 09:50] VITALS: BP 112/67; PULSE 87; RESP 16; TEMP 36.4; O2SAT 99
--- NOTE | 2018-12-12 09:50 | PN.SURG_ITS ---
Subjective: Patient feeling slight improved, ambulating very well, no flatus yet - Physical Exam Vitals/I&O's: Vital Signs Temp Pulse Resp BP Pulse Ox 98.1 F 96 16 96/48 L 94 12/12/18 02:07 12/12/18 02:07 12/12/18 02:07 12/12/18 02:07 12/12/18 02:07 Oxygen Delivery Method Room Air Weight: 72.121 kg Body Mass Index (BMI) 28.1 Intake and Output for Last 24 Hours 12/10/18 12/11/18 12/12/18 23:59 23:59 23:59 Intake Total 3218.75 / 3218.75 240 / 240 Output Total 1350 / 1350 Balance 1868.75 / 1868.75 240 / 240 General: Alert, Oriented x3 Oral: Moist Mucosa Neck: Supple Lungs: Normal air movement Abdomen: Soft, - - dressing intact Current Medications Acetaminophen (Tylenol) 325 mg PO Q4H PRN PRN PRN Reason: Pain or Fever Last Admin: 12/11/18 23:53 Dose: 325 mg Documented by: Morphine Sulfate () 4 mg IV Q1H PRN PRN PRN Reason: Pain Score 6-10/10 Last Admin: 12/11/18 21:12 Dose: 4 mg Documented by: Ondansetron HCl (Zofran) 4 mg IV Q8H PRN PRN PRN Reason: NAUSEA/VOMITING Simethicone (Mylicon) 80 mg PO TIDPC OSCAR Last Admin: 12/11/18 18:33 Dose: 80 mg Documented by: Sodium Chloride () 10 - 40 ml IV UD PRN PRN Reason: SALINE FLUSH Medical Necessity - Tobacco Use Smoking Status: Never smoker Tobacco Use: Non-smoker Assessment/Plan Impression: POD#1 1/2 w/p open appendectomy, excision of inflammatory mass Plan: encourage ambulation/incentive spirometry await passage of flatus then can advance diet and d/c to home Patient transferred from [facility] to [place] [id number] for postoperative recovery
[2018-12-12] MEDS: Acetaminophen 325 MG Tablet PO ×3 (09:59→22:39)
[2018-12-12 14:00] VITALS: BP 104/68; PULSE 75; RESP 16; TEMP 36.6; O2SAT 99
--- NOTE | 2018-12-12 14:10 | CASEMGMT ---
KATHY KENNY SENIOR SERVICE AIDE CM to room to meet with patient for initial transition planning/care coordination assessment. KATHY KENNY introduced self and role at [facility]. Pt voices understanding and consents to assessment at this time. Pt resting in bed in no distress at this time. Pt is A/O at this time and answers all questions appropriately. Care providers, pharmacy, and demographics verified at this time. PCP: [facility] Specialists: Yana--[employer] Preferred Pharmacy: [facility] Insurance: [employer] Prescription Benefit: Yes Living Will/HPOA: Pt does not currently have LW/HCPOA and declines info at this time. LNOK: Mom and dad, Volley and Jackie Living Arrangements: Lives with sig other. Independent Transportation: Sig other DME: Denies using any DME and denies needs. HHC/SNF: No history of either. No needs identified. Pt wishes to return home and states has no concerns with going home at time of discharge. CM to follow for discharge planning/needs. Advised pt to ask for CM if any further questions/concerns/needs arise. Voices understanding. PLAN: Home [employer] [facility] RN, CM
--- NOTE | 2018-12-12 20:10 | NURSING ---
WP RN up to get FHT. FHR ranged 145-160 while RN listening. pt is feeling active movement. Denies contractions and LOF. Overall she states she feels well besides working on appy pain.
[2018-12-12 20:29] VITALS: BP 101/62; PULSE 73; RESP 16; TEMP 36.3; O2SAT 97
[2018-12-13 02:15] VITALS: BP 107/62; PULSE 94; RESP 16; TEMP 36.6; O2SAT 96
[2018-12-13 08:49] VITALS: BP 106/66; PULSE 74; RESP 18; TEMP 36.7; O2SAT 98
[2018-12-13] MEDS: Acetaminophen 325 MG Tablet PO (08:50)
--- NOTE | 2018-12-13 11:37 | PCM.PN.SRG ---
Subjective: Patient passing flatus, feeling well - tolerating pain control with tylenol - Physical Exam Vitals/I&O's: Vital Signs Temp Pulse Resp BP Pulse Ox 98.0 F 74 18 106/66 98 12/13/18 08:49 12/13/18 08:49 12/13/18 08:49 12/13/18 08:49 12/13/18 08:49 Oxygen Delivery Method Room Air Weight: 72.121 kg Body Mass Index (BMI) 28.1 Intake and Output for Last 24 Hours 12/11/18 12/12/18 12/13/18 23:59 23:59 23:59 Intake Total 3218.75 / 3218.75 840 / 840 100 / 100 Output Total 1350 / 1350 Balance 1868.75 / 1868.75 840 / 840 100 / 100 General: Alert, Oriented x3 Oral: Moist Mucosa Neck: Supple Lungs: Normal air movement Abdomen: Bowel Sounds Present, Soft, - - dressing intact, minimal seepage Current Medications Acetaminophen (Tylenol) 325 mg PO Q4H PRN PRN PRN Reason: Pain or Fever Last Admin: 12/13/18 08:50 Dose: 325 mg Documented by: Morphine Sulfate () 4 mg IV Q1H PRN PRN PRN Reason: Pain Score 6-10/10 Last Admin: 12/11/18 21:12 Dose: 4 mg Documented by: Ondansetron HCl (Zofran) 4 mg IV Q8H PRN PRN PRN Reason: NAUSEA/VOMITING Simethicone (Mylicon) 80 mg PO TIDPC OSCAR Last Admin: 12/13/18 08:50 Dose: 80 mg Documented by: Sodium Chloride () 10 - 40 ml IV UD PRN PRN Reason: SALINE FLUSH Medical Necessity - Tobacco Use Smoking Status: Never smoker Tobacco Use: Non-smoker Assessment/Plan Impression: POD#2 1/2 w/p open appendectomy, excision of inflammatory mass Plan: encourage ambulation/incentive spirometry d/c to home
[2018-12-13 13:30] VITALS: BP 113/58; PULSE 98; RESP 18; TEMP 36.5; O2SAT 98
--- NOTE | 2018-12-16 18:54 | PCM.HP.BLA ---
History and Physical Date of Admission: 12/11/18 Date of Consult: 12/10/18 - Reason for Consult Chief Complaint: abdominal pain History of Present Illness: 23 y/o WF presents with abdominal pain. She states that it started about three days ago. She complains of nausea, but denies emesis. Initially upper abdominal pain and concern was for PE and she underwent chest CT (negative for PE) earlier today. Now pain noted in right lateral aspect and CT scan was obtained of the abdomen which reveals appendicitis. The patient is 24 weeks - intrauterine - first . Has leukocytosis of 17.6K Past Medical History: denies major medical illnesses Past Surgical History: wisdom teeth extraction Medications: vitamins Allergies: Has no known drug allergies Social history: TOB use denies Review of Systems: General - denies fevers Cardiovascular denies chest pain, denies history of heart attack, denies heart problems Pulmonary denies shortness of breath, denies coughing up blood Gastrointestinal as per HPI, denies blood in stools Neurological denies numbness/weakness of extremities, denies seizures Genitourinary denies burning with urination, denies blood in urine Hematological denies spontaneous/prolonged bleeding Skin denies open non healing wounds Musculoskeletal denies history of fractures, denies arthritis Endocrine denies diabetes Psychological denies suicidal ideation, denies hallucinations Physical examination: Vital signs Temp 98.1F HR 89 RR 16 BP 108/72 General WD/WN WF in no apparent distress, alert and oriented, not septic appearing HEENT Normocephalic. EOM intact with sclera clear and no icterus noted. Neck is supple with no jugular venous distention noted. Trachea is midline. Lungs normal breath sounds. No rales/rhonchi/wheezing noted. No labored breathing noted, such as retractions. No cough heard. Heart normal heart sounds. No rubs/clicks/murmurs noted. Abdomen soft with gravid uterus with tenderness right lateral to umbilicus, decreased bowel sounds Extremities no calf tenderness noted. No pitting edema noted. Genitourinary/Rectal deferred Skin normal skin integrity. Neurological cranial nerves II-XII intact. Normal motor strength in arms and legs. No localized numbness detected. Psychological normal affect, patient is calm and appropriate Impression: abdominal pain appendicitis by CT scan leukocytosis Discussion/Plan: I have discussed the above with the patient - also present are patient's parents and boyfriend. I have recommended that patient undergo appendectomy. Given that she is 24 weeks and if she were to deliver prematurely, I have offered transfer to [facility] for intensive nursery care of the premature baby. She refuses and wishes to have surgery at [facility]. I have explained the procedure to the patient. I have counseled the patient as to the risks of the procedure, including but not limited to: infection, bleeding, injury to any blood vessels/nerves, scar tissue, injury to any intraabdominal organs, injury to kidney/ureters, injury to bowel/bladder, intraabdominal abscess/bleeding, hernias at incisional sites, wound infections, complications of anesthesia, premature delivery of infant, etc. the patient understands. She wishes to proceed. I have answered all questions to the patient?s satisfaction and the patient has no further questions.
== END 2018-12-13 13:34 | disposition home or self-care (01) | DRG 547 ==
LOC: ED 21:12 → AC 12-11 00:58 → ED 12-11 01:39 → WP 12-11 02:29 → MS3 12-11 17:55 → WP 12-12 10:10
PROVIDERS: Admitting Provider Surgery; Emergency Provider Emergency Medicine; Family Provider Pediatrics; PCP Pediatrics; Referring Provider Surgery; Visit Provider Surgery
PROC: 0DTJ0ZZ Resection of Appendix, Open Approach (ICD-10-PCS; CPT 44950; principal; 2018-12-11 01:30)
DX: O99.612 Diseases of the digestive system complicating pregnancy, second trimester (principal); K66.8 Other specified disorders of peritoneum; O26.892 Other specified pregnancy related conditions, second trimester; R07.9 Chest pain, unspecified; R10.13 Epigastric pain; R06.02 Shortness of breath; R11.2 Nausea with vomiting, unspecified; Z3A.24 24 weeks gestation of pregnancy
CPT/HCPCS: 59050; 71275; 74176; 80053; 81001; 83690; 85025; 88304; 88305; 88341; 88342; 93005; 96360; 96361; 99218; 99285; J7030; J7050; J7120; Q9967; A4216; G0378; J2405

== ENCOUNTER 2019-02-20 17:10 | Outpatient (CLI) | payer MEDICAID, SELFPAY ==
[2018-12-11 17:51] VITALS: BMI 28.1
[2019-02-20 17:22] VITALS: BMI 31.2
[2019-02-20 18:08] LABS: ROM Internal Control Test YES-OK TO RESULT pt. (Internal QC); ROM Patient Test Negative (Negative)
--- NOTE | 2019-02-21 09:10 | OB.TRI.NOTE ---
History of Present Illness Date of Service: 02/20/19 Was patient seen by the physician?: No Reason For Visit: R/O ROM Date of Service: 02/20/19 Final DENISE: 03/27/19 Gestational age: 35 Weeks and 0 Days Allergies pumpkin Allergy (Verified 02/20/19 17:22) Hives Laboratory Studies: Laboratory Tests 02/20/19 Range/Units 17:30 Vag Amniotic Fld Detect Negative (Negative) NST - FHR Rate Baby A Baseline: 135-140 Variability:: Moderate Accelerations:: 15 x 15 Decelerations:: None NST Reactive:: Yes, Appropriate for gestational age FHR Category:: Category I Uterine Activity:: irritability Impression/Plan 23-year-old 1 para 0 at 35-0/7 weeks gestation for threatened labor. Patient complaint possible rupture membranes. No evidence of labor. ROM plus test is negative. Patient was discharged home with routine instructions and to follow-up in the office as scheduled or return if needed.
--- NOTE | 2019-02-21 09:12 | PCM.HP.OB ---
History History of this : opened in error Allergies pumpkin Allergy (Verified 02/20/19 17:22) Hives Home Medications: Home Medications 105/Iron/Folic AC/Dha [Prena1 True Combo Pack] 1 tab PO DAILY 12/10/18 Smoking Status: Never smoker Number of Fetus(es): 1 NST - FHR Rate Baby A Baseline: normal Uterine Activity:: Irregular History Past Pregnancies: Past Pregnancies Delivery Date Name GA/ Weeks Outcome Route Wt Infant Sex Labor Length Anesthesia Delivery Location Provider FOB Assessment/Plan opened in error
== END 2019-02-20 18:20 | disposition home or self-care (01) ==
LOC: WPOUT 17:13 → WP 17:14
PROVIDERS: Family Provider Pediatrics; PCP Pediatrics; Referring Provider Obstetrics & Gynecology; Visit Provider Obstetrics & Gynecology
DX: O47.03 False labor before 37 completed weeks of gestation, third trimester (principal); Z3A.35 35 weeks gestation of pregnancy
CPT/HCPCS: 59025; 59050; 84112; 99218; G0378

== ENCOUNTER 2019-03-05 12:40 | Inpatient (IN) | payer MEDICAID, SELFPAY ==
[2019-03-05 12:11] VITALS: BMI 31.8
[2019-03-05 12:33] LABS: ROM Internal Control Test YES-OK TO RESULT pt. (Internal QC)
[2019-03-05 12:36] LABS: ROM Patient Test POSITIVE (Negative)
--- NOTE | 2019-03-05 12:43 | HP.PCM_ITS ---
History Date of Admission: 12/11/18 Final DENISE: 03/27/19 Final DENISE Source: US <20 weeks Gestational age: 36 Weeks and 6 Days History of this : This is a 23 year-old, G 0 at 36.6 weeks gestation spontaneous rupture membranes at home approximately 10 AM on 03/05/2019. Allergies pumpkin Allergy (Verified 03/05/19 12:12) Hives Home Medications: Home Medications 105/Iron/Folic AC/Dha [Prena1 True Combo Pack] 1 tab PO DAILY 12/10/18 Smoking Status: Never smoker Alcohol: None Number of Fetus(es): 1 NST - FHR Rate Baby A Baseline: 130 Variability:: Moderate Accelerations:: 15 x 15 Decelerations:: None NST Reactive:: Yes FHR Category:: Category I Uterine Activity:: q2-5 (pt not feeling) History Past Pregnancies: Past Pregnancies Delivery Date Name GA/ Weeks Outcome Route Wt Sex Labor Length Anesthesia Delivery Location Provider FOB Labs: gbs negative Physical Exam General: Alert, Oriented x3 Abdomen: Soft, Non Tender, Non-Distended, Gravid Neurological: Cranial nerves II-XII grossly intact [employer] HELPER: Normal external genitalia Estimated gestational size: Appropriate for gestational size Presentation: Cephalic Cervix Dilation (cm): 1.5 Station: -3 Effacement (%): 60 Assessment/Plan This is a 23 year-old, G P0 at 36.6 weeks gestation presents with spontaneous rupture membranes at home 10 AM this was confirmed by a ROM plus. Admit to labor and delivery Monitor heart rate and toco Patient not feeling contractions at this time will consider Cytotec May have an epidural if requested for pain management GBS negative Celestone 12 mg IM x1 anticipate normal spontaneous vaginal delivery
[2019-03-05] MEDS: Lactated Ringers 1,000 ML 50 ML IV (13:05)
[2019-03-05] MEDS: Lactated Ringers 500 ML 999 ML IV ×3 (13:32→20:06)
[2019-03-05] MEDS: Betamethasone/Betamethasone 30 MG/5 ML Vial 12 MG IM (13:44)
[2019-03-05 13:57] LABS: Absolute Lymphocyte Count 2.23 X10^3/uL (0.83-4.51); Absolute Neutrophil Count 13.2 X10^3/uL (2.0-7.7); Basophil# 0.04 X10^3/uL; Basophil% 0.2 % (0-1); Eosinophil# 0.04 X10^3/uL; Eosinophils% 0.2 % (0-5); Hematocrit 37.1 % (37-47); Hemoglobin 12.6 g/dL (12.0-15.0); Lymphocyte # 2.23 X10^3/ul (4.0); Lymphocyte % 13.5 % (19-41); Mean Corpuscular Volume 97.1 fL (81-99); Mean Platelet Vol. 12.4 fl (6.2-12.0); Monocyte# 0.85 X10^3/uL; Monocyte% 5.1 % (0-10); NRBC Flagged by Analyzer 0 % (0-5); Neutrophil # 13.15 X10^3/uL (2.7-7.7); Neutrophil % 79.8 % (47-70); Platelet Count 213 K/mm3 (150-450); RBC Distribution Width CV 12.7 % (11.6-14.6); RBC Distribution Width SD 45.1 fl (35.1-43.9); Red Blood Count 3.82 M/mm3 (4.2-5.4); White Blood Count 16.5 K/mm3 (4.4-11.0)
--- NOTE | 2019-03-05 16:31 | PCM.PN.BLA ---
Progress Note Seen at bedside-very uncomfortable with contractions. Patient requesting epidural. Nurse just checked her she was 3 cm. We will continue to labor without augmentation at this time. If labor progress slows will augment with Pitocin.
[2019-03-05] MEDS: fentaNYL-bupivacaine (epidural) 100 ML BAG EPIDURAL ×2 (17:00→22:05)
[2019-03-05] MEDS: Lactated Ringers 1,000 ML 200 ML IV ×2 (18:59→23:18)
[2019-03-05] MEDS: Ondansetron 4 MG/2 ML Vial IV (20:12)
[2019-03-05] MEDS: Oxytocin 30 units/NS 500 ml 30 UNITS/500 ML IV.SOLN IV (20:57)
[2019-03-06] MEDS: Oxytocin 30 units/NS 500 ml 30 UNITS/500 ML IV.SOLN 334 UNITS IV (01:25)
--- NOTE | 2019-03-06 01:37 | PCM.OPRPT ---
Vaginal Delivery Maternal Presentation: Spontaneous Rupture of Membranes Amniotic Membrane Rupture Type: Spontaneous at home Amniotic Fluid Description: Clear Final DENISE: 03/27/19 Final DENISE Source: US <20 weeks Gestational age: 37 Weeks and 0 Days Date of Procedure: 03/06/19 Pre-Operative Diagnosis: SROM, labor Post-Operative Diagnosis: live female Surgery/ Procedure Performed: Vacuum Assisted Vaginal Delivery - vacuum applied for maternal exhaustion- pt and counseled on risks/benefits of vacuum Type of Anesthesia: Epidural Description of Procedure: Pt with good maternal pushing efforts but maternal exhaustion- pt given option for Vacuum assisted delivered. pt and were counseled on the risks of vacuum extraction including but not limited to vaginal lacerations, scalp lacerations, brain bleeds. Patient and wish to proceed with use. The vacuum was placed and 4 pulls with 1 pop-off with successful delivery of the head, the vacuum was then removed and the rest the 's body was delivered without complication. Infant was placed on maternal chest skin to skin. Delayed cord clamping was performed there were no lacerations to the vagina. Assented delivered without difficulty intact. Presentation: Vertex Placental Delivery Description: Spontaneous Placenta Disposition: [facility] Cord Vessel Description: 3 Vessels Cord Entanglement: None Drain: Green to straight drain Estimated Blood Loss: 150 Infant A gender: Female (1 minute): 8 (5 minute): 9 Episiotomy Description: None Laceration: None Medications given after delivery: IV Pitocin Complications: None
[2019-03-06 03:46] VITALS: BP 109/56; PULSE 89; RESP 16; TEMP 37.1; O2SAT 98
[2019-03-06] MEDS: Ibuprofen 600 MG Tablet PO ×3 (03:51→19:50)
[2019-03-06 07:39] VITALS: BP 106/58; PULSE 93; RESP 16; TEMP 36.9
[2019-03-06 13:19] VITALS: BP 107/53; PULSE 79; RESP 16; TEMP 36.9
[2019-03-06 16:48] VITALS: BP 113/54; PULSE 86; RESP 16; TEMP 36.4
[2019-03-06 19:52] VITALS: BP 105/57; PULSE 83; RESP 18; TEMP 36.8; O2SAT 97
[2019-03-07 00:15] VITALS: BP 116/57; PULSE 82; RESP 18; TEMP 36.7; O2SAT 97
[2019-03-07 04:48] VITALS: BP 106/59; PULSE 66; RESP 18; TEMP 36.8; O2SAT 99
[2019-03-07] MEDS: Ibuprofen 600 MG Tablet PO (04:56)
[2019-03-07] MEDS: Senna/Docusate Sodium 1 Tablet PO (08:59)
[2019-03-07 10:00] VITALS: BP 110/64; PULSE 67; RESP 16; TEMP 36.7
--- NOTE | 2019-03-07 11:04 | PCM.PN.OB ---
Subjective: No complaints - Physical Exam Vitals/I&O's: Vital Signs Temp Pulse Resp BP Pulse Ox 98.2 F 66 18 106/59 L 99 03/07/19 04:48 03/07/19 04:48 03/07/19 04:48 03/07/19 04:48 03/07/19 04:48 Oxygen Delivery Method Room Air Weight: 179 lb 7.3 oz Body Mass Index (BMI) 31.8 Intake and Output for Last 24 Hours 03/05/19 03/06/19 03/07/19 23:59 23:59 23:59 Intake Total 2826.17 / 2826.17 925.54 / 925.54 Output Total 700 / 700 Balance 2826.17 / 2826.17 225.54 / 225.54 General: Alert, Oriented x3 Abdomen: Soft, Non Tender, Non-Distended - ff mid & below umb Extremities: No Calf Tenderness Neurological: Cranial nerves II-XII grossly intact Current Medications Acetaminophen (Tylenol) 1,000 mg PO Q8H PRN PRN PRN Reason: Pain Score 1-3/10 Bisacodyl (Dulcolax) 10 mg RECTAL UD PRN PRN Reason: If no BM Dibucaine (Dibucaine) 1 applic TOPICAL TID PRN PRN; Protocol PRN Reason: Discomfort Hydrocortisone (Hytone) 1 applic TOPICAL TID PRN PRN; Protocol PRN Reason: Discomfort Ibuprofen (Motrin) 600 mg PO Q6H PRN PRN PRN Reason: Pain Score 1-3/10 Last Admin: 03/07/19 04:56 Dose: 600 mg Documented by: Methylergonovine Maleate (Methergine) 0.2 mg IM X1 PRN PRN Reason: Excess bleeding/uterine atony Ondansetron HCl (Zofran) 4 mg IV Q4H PRN PRN PRN Reason: Nausea Oxycodone HCl (Oxyir) 5 - 10 mg PO Q4H PRN PRN PRN Reason: Pain Score 4-10/10 Senna/Docusate Sodium (Senokot-S, Tamanna-Colace) 1 - 2 tablet PO DAILY PRN PRN PRN Reason: Constipation Last Admin: 03/07/19 08:59 Dose: 1 tablet Documented by: Simethicone (Mylicon) 80 mg PO PCHS PRN PRN Reason: Indigestion/Stomach pain Sodium Chloride () 5 - 15 ml IV UD PRN PRN Reason: SALINE FLUSH Medical Necessity - Tobacco Use Smoking Status: Never smoker Assessment/Plan PPD#1 D/c home per patient request
--- NOTE | 2019-03-07 11:16 | DCINST_ITS ---
Discharge Diet: No Restrictions Discharge Activity: May Drive, May Shower May resume sexual activity in: 6 weeks Weight Bearing Status: Weight bearing as tolerated Additional Instructions: If you experience any of the following, contact your healthcare provider. * Bleeding that soaks a pad every hour for 2 hours * Fever 100.4 or higher * Unrelieved incision or abdominal pain * Swelling, redness, discharge or bleeding from your incision or episiotomy site * Your incision begins to separate * Problems urinating (including inability to urinate or burning while urinating). * Visual changes * Severe headache * Flu-like symptoms * Pain or redness in one of both of your breasts * Pain, warmth, tenderness or swelling in your legs, especially the calf area * Frequent nausea and vomiting * Symptoms of depression or anxiety If you experience any of the following, call 911 or go to the nearest Emergency Room. * Chest pain * Problems breathing * Seizure activity * Partial or complete paralysis of a body part, slurred speech, weakness or drooping of the face, or a sudden inability to walk or hold your balance Allergies/Adverse Reactions: Allergies pumpkin Allergy (Verified 03/05/19 12:12) Hives Medications to take at Discharge 105/Iron/Folic AC/Dha [Prena1 True Combo Pack] 1 tab PO DAILY 12/10/18 Acetaminophen [Tylenol] 1,000 mg PO Q8H PRN PRN tab 03/07/19 Ibuprofen [Motrin] 600 mg PO Q6H PRN PRN tab 03/07/19 Primary Care Physician: Hortencia Frias MD [Primary Care Provider] - Test Results: Test results from this visit will be discussed in further detail at your follow- up appointment, if applicable.
--- NOTE | 2019-03-07 11:16 | PCM.DCVAG ---
Discharge Diet: No Restrictions Discharge Activity: May Drive, May Shower May resume sexual activity in: 6 weeks Weight Bearing Status: Weight bearing as tolerated Additional Instructions: If you experience any of the following, contact your healthcare provider. Bleeding that soaks a pad every hour for 2 hours Fever 100.4 or higher Unrelieved incision or abdominal pain Swelling, redness, discharge or bleeding from your incision or episiotomy site Your incision begins to separate Problems urinating (including inability to urinate or burning while urinating). Visual changes Severe headache Flu-like symptoms Pain or redness in one of both of your breasts Pain, warmth, tenderness or swelling in your legs, especially the calf area Frequent nausea and vomiting Symptoms of depression or anxiety If you experience any of the following, call 911 or go to the nearest Emergency Room. Chest pain Problems breathing Seizure activity Partial or complete paralysis of a body part, slurred speech, weakness or drooping of the face, or a sudden inability to walk or hold your balance Allergies/Adverse Reactions: Allergies pumpkin Allergy (Verified 03/05/19 12:12) Hives Medications to take at Discharge 105/Iron/Folic AC/Dha [Prena1 True Combo Pack] 1 tab PO DAILY 12/10/18 Acetaminophen [Tylenol] 1,000 mg PO Q8H PRN PRN tab 03/07/19 Ibuprofen [Motrin] 600 mg PO Q6H PRN PRN tab 03/07/19 Primary Care Physician: Hortencia Frias MD [Primary Care Provider] - Test Results: Test results from this visit will be discussed in further detail at your follow-up appointment, if applicable.
[2019-03-07 15:00] VITALS: BP 105/57; PULSE 87; RESP 16; TEMP 36.8
== END 2019-03-07 15:00 | disposition home or self-care (01) | DRG 560 ==
LOC: WPOUT 12:45 → WP 12:45
PROVIDERS: Admitting Provider Obstetrics & Gynecology; PCP Pediatrics; Referring Provider Obstetrics & Gynecology; Visit Provider Obstetrics & Gynecology
DX: O60.14X0 Preterm labor third trimester with preterm delivery third trimester, not applicable or unspecified (principal); O75.81 Maternal exhaustion complicating labor and delivery; Z3A.36 36 weeks gestation of pregnancy; Z37.0 Single live birth
CPT/HCPCS: 59025; 59050; 84112; 85025; 86850; 86900; 86901; 99218; J7120; G0378; J0702; J2405

== ENCOUNTER 2020-05-24 12:30 | Outpatient (RCR) | payer MEDICAID, SELFPAY ==
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
--- NOTE | 2020-11-15 07:51 | HP.PT.NRP ---
RODRIGO TAN was seen in my office for initial evaluation on 05/16/20. The following Plan of Care was established for this patient: Initial Frequency: 2x /Week Initial Duration: 4 Weeks Patient/Client Instruction: Educate patient on: Condition, Plan of Care For the Purpose of:: To decrease pain, To increase ROM, To improve muscle performance and motor function, To increase tolerance to activity/condition/position, To improve performance and independence with ADL's, To improve ability of physical actions for home/community/work/leisure, To improve health of tissue, To decrease soft tissue restriction, To increase flexibility/ROM, To reduce risk of recurrence Therapeutic Exercise to Include: Power training, Body mechanics, Postural training, Flexibilty training, Dynamic Lumbar Stabilization, Cait Exercises For the Purpose of:: To decrease pain, To increase ROM, To improve muscle performance and motor function, To increase tolerance to activity/condition/position, To improve performance and independence with ADL's, To improve ability of physical actions for home/community/work/leisure, To improve health of tissue, To decrease soft tissue restriction, To increase flexibility/ROM, To improve endurance, To reduce risk of recurrence TENS: Yes IF ES: Yes Cryotherapy (ice pack, ice massage): Yes Thermo therapy (hot pack): Yes Ultrasound (thermal/non thermal): Yes For the Purpose of:: To decrease pain, To increase ROM, To increase oxygenation perfusion, To improve muscle performance and motor function, To improve health of tissue, To decrease soft tissue restriction This patient was last seen in our office . Pertinent comments regarding their Physical therapy will appear below: Patient was seen for PT lumbar pain for HEP to include DLS and posture thus is d/c after 3 visits At this point I will be discontinuing this patient from physical therapy. I would be happy to see this patient again in the future if found appropriate by the physician. Thank you! Mario Dodson, PT, Cert MDT, OCS Balance/Gait/Functional tests - Balance/Special Test Scores Oswestry Low Back Score: 5
== END 2020-05-24 19:00 | disposition home or self-care (01) ==
LOC: PT 12:30
PROVIDERS: Referring Provider Nurse Practitioner Family; Visit Provider Nurse Practitioner Family
DX: M51.17 Intervertebral disc disorders with radiculopathy, lumbosacral region (principal); M46.96 Unspecified inflammatory spondylopathy, lumbar region; M48.062 Spinal stenosis, lumbar region with neurogenic claudication; M79.10 Myalgia, unspecified site
CPT/HCPCS: 97014; 97110; 97162; G0283

== ENCOUNTER 2022-07-25 21:22 | Emergency (ER) | payer MEDICAID, SELFPAY ==
[2022-07-25 21:23] VITALS: BP 119/83; PULSE 70; RESP 16; TEMP 36.7; O2SAT 100; BMI 27.2
--- NOTE | 2022-07-25 21:45 | CT_ITS ---
INDICATION: flank pain EXAMINATION: CT ABDOMEN AND PELVIS WITHOUT CONTRAST - CT Abdomen And Pelvis W/O Contrast Injection TECHNIQUE: Helically acquired images were obtained of the abdomen and pelvis without oral or IV contrast. A radiation dose optimization technique was used for this scan. IV Contrast dosage and agent: None. Oral contrast: None. COMPARISON: 12/10/2018 FINDINGS: LOWER CHEST: Lung bases are clear. No cardiomegaly or pericardial effusion. LIVER: Homogeneous. No focal mass. GALLBLADDER AND BILIARY TREE: No calcified gallstones. Gallbladder contracted. No intra- or extrahepatic biliary ductal dilation. PANCREAS: Mild fat stranding in the pancreatic bed. No solid mass or walled off fluid collection. SPLEEN: Normal size without focal cystic or solid mass. ADRENAL GLANDS: No nodules. KIDNEYS AND URETERS: No nephrolithiasis or hydronephrosis. PERITONEUM: Trace pelvic ascites. No free air. BOWEL: No evidence of acute appendicitis. No stomach or bowel distension. No focal inflammatory change. LYMPH NODES: No enlarged mesenteric or retroperitoneal lymph nodes. VESSELS: Aorta is non-dilated. URINARY BLADDER: Nondistended. REPRODUCTIVE ORGANS: No pelvic masses. ABDOMINAL WALL: Small fat-containing umbilical hernia. BONES: Unremarkable. CT/Abdomen/Pelvis without Cont IMPRESSION: Mild peripancreatic inflammatory stranding, possible acute interstitial edematous pancreatitis. Electronically Signed: Dylan Lambert MD at 23:35 EDT ,
[2022-07-25] MEDS: 0.9% Normal Saline 1,000 ML 150 ML IV (21:59)
[2022-07-25] MEDS: Ketorolac 30 MG/ML Syringe IV (21:59)
[2022-07-25 22:06] LABS: Bacteria 0 SEEN /hpf (None Seen); Mucous, Urine 0 SEEN /hpf (<or=2+); Red Blood Cells-Urine 0 SEEN /hpf (0-5); White Blood Cells 0 SEEN /hpf (0-5)
[2022-07-25 22:27] LABS: Absolute Lymphocyte Count 3.98 X10^3/uL (0.83-4.51); Absolute Neutrophil Count 2.8 X10^3/uL (2.0-7.7); Basophil# 0.04 X10^3/uL; Basophil% 0.5 % (0-1); Color, Urine Yellow (Yellow); Eosinophil# 0.11 X10^3/uL; Eosinophils% 1.5 % (0-5); Glucose, Dipstick Normal (Normal); Hemoglobin 12.3 g/dL (12.0-15.0); Ketone-Dipstick Negative (Negative); Leukocyte Esterase-Dipstick 25 /ul (Negative); Lymphocyte # 3.98 X10^3/ul (0.83-4.51); Lymphocyte % 53.9 % (19-41); Mean Corp Hgb Conc 33.2 g/dL (32-36); Mean Corpuscular Hgb 30.9 pg (27.0-32.0); Mean Platelet Vol. 11.3 fl (6.2-12.0); Monocyte# 0.44 X10^3/uL; NRBC Flagged by Analyzer 0 % (0-5); Neutrophil % 37.8 % (47-70); Nitrite-Dipstick Negative (Negative); Occult Blood-Urine Negative /ul (Negative); Platelet Count 247 K/mm3 (150-450); Protein-Dipstick Negative (Negative); RBC Distribution Width CV 11.9 % (11.6-14.6); RBC Distribution Width SD 41.2 fl (35.1-43.9); Red Blood Count 3.98 M/mm3 (4.2-5.4); Urine Bilirubin Dipstick Negative (Negative); Urine Clarity Clear (Clear); Urine Urobilinogen Normal (Normal); Urine pH 6.5 (5.0 - 8.0); White Blood Count 7.4 K/mm3 (4.4-11.0)
[2022-07-25 22:41] LABS: Anion Gap 5 (5-15); BUN 8 mg/dL (7-18); BUN/Creat Ratio 9.7 RATIO (10-20); Calcium,Total 8.9 mg/dL (8.5-10.1); Chloride 109 mmol/L (98-107); Creatinine, Serum 0.83 mg/dL (0.55-1.02); EST Glomerular Filtration Rate 89 mL/min (>60); Est Glom Filt Rate - Afr Amer 108 mL/min (>60); Estimated Creatinine Clearance 85.71 ml/min; Glucose 92 mg/dL (74-106); Potassium 3.8 mmol/L (3.5-5.1); Sodium Level 140 mmol/L (136-145)
[2022-07-25 22:44] LABS: Internal QC Validated? YES +Cl - CLEAR BKGD; Pregnancy, Urine Negative Negative; Squamous Epithelial Cells - UA 0-5 SEEN /hpf (5-10)
--- NOTE | 2022-07-25 23:31 | EX.ED.DYSGE1 ---
HPI History of Present Illness Chief Complaint: Complaint Informant: patient Onset/Context/Timing Onset: Today Narrative Narrative: Patient presents secondary to back and lower abdominal pain. She states she has rather regular low back pain and gets injections every 3 months. Her back was bothering her today and this evening pain wraps around into her lower abdomen. She states left side is slightly worse than right. She states she does urinate frequently but that is not abnormal for her. She has no history of kidney stones and has not had dysuria. PFSH PFSH Medical History Chronic back pain Ovarian cyst Medical History no medical history Home Medications NK 07/25/22 [History Last Taken Unknown] Allergy/AdvReac Type Severity Reaction Status Date / Time pumpkin Allergy Hives Verified 07/25/22 21:25 Surgical History History of removal of ovarian cyst Hx of appendectomy Surgical History no surgical history Social History Smoking Status: Never smoker ROS ROS ED Constitutional Constitutional ED: Denies chills or fever(s) Eyes Eyes: Denies change in vision or discharge from eye(s) ENT ENT ED: Denies discharge from eye(s), rhinorrhea or sore throat Cardiovascular Cardiovascular: Denies chest pain or palpitations Respiratory/Chest Respiratory/Chest: Denies cough or dyspnea Gastrointestinal Gastrointestinal: Reports abdominal pain; Denies diarrhea, nausea or vomiting Genitourinary Genitourinary ED: Reports urinary frequency; Denies difficulty urinating or dysuria Musculoskeletal Musculoskeletal: Reports back pain; Denies extremity pain Integumentary Denies Abrasions or rash Neurologic Neurologic: Denies headache(s) or weakness Psychiatric Psychiatric: Denies anxiety or depression Allergic/Immunologic Allergic/Immunologic ED: Denies lip swelling or urticaria EXAM Physical Exam Const Vital Signs: 07/25/22 21:23 Temperature 98.0 F Temperature Source Temporal Pulse Rate 70 Respiratory Rate 16 Blood Pressure 119/83 H Blood Pressure Mean 95 Pulse Ox 100 Oxygen Delivery Method Room Air Positive well nourished and well developed General Appearance ED: well developed HEENT Reports normocephalic and head/scalp atraumatic Eyes PERRL and EOMs intact bilaterally Neck supple Chest Wall inspection of chest normal and palpation of chest normal Resp normal respiratory effort and clear to auscultation bilaterally Cardio regular rate and regular rhythm GI normal to inspection, nondistended, normoactive bowel sounds Palpation: soft Back/Spine no CVA tenderness Extremity normal to inspection Neuro oriented x3 and no sensory deficits noted Sensorium / Orientation: alert Motor Exam: strength 5/5 throughout Psych mental status grossly normal Skin no rashes or lesions noted MDM MDM MDM Narrative Medical decision making narrative: Patient given IV fluids and Toradol. Labwork obtained to evaluate for leukocytosis, anemia, and electrolyte derangement. Urinalysis obtained to evaluate for infection/hematuria. Lab Data Attestation: I reviewed the patient's lab results. Labs: Laboratory Results - last 24 hr 07/25/22 07/25/22 07/25/22 21:58 21:58 21:58 WBC 7.4 RBC 3.98 L Hgb 12.3 Hct 37.0 MCV 93.0 MCH 30.9 MCHC 33.2 RDW Std Deviation 41.2 RDW Coeff of Jeremy 11.9 Plt Count 247 MPV 11.3 Immature Gran % (Auto) 0.300 Neut % (Auto) 37.8 L Lymph % (Auto) 53.9 H [place] % (Auto) 6.0 Eos % (Auto) 1.5 Baso % (Auto) 0.5 Absolute Neuts (auto) 2.8 Absolute Lymphs (auto) 3.98 Nucleated RBC % 0 Sodium 140 Potassium 3.8 Chloride 109 H Carbon Dioxide 26.0 Anion Gap 5 BUN 8 Creatinine 0.83 Estim Creat Clear Calc 85.71 Est GFR (MDRD) Af Amer 108 Est GFR (MDRD) Non-Af 89 BUN/Creatinine Ratio 9.7 L Glucose 92 Calcium 8.9 Urine Color Yellow Urine Clarity Clear Urine pH 6.5 Ur Specific [place] 1.010 Urine Protein Negative Urine Glucose (UA) Normal Urine Ketones Negative Urine Occult Blood Negative Urine Nitrite Negative Urine Bilirubin Negative Urine Urobilinogen Normal Ur Leukocyte Esterase 25 H Urine RBC 0 SEEN Urine WBC 0 SEEN Ur Squamous Epith Cells 0-5 SEEN Urine Bacteria 0 SEEN Urine Mucus 0 SEEN Urine Test Negative Radiography Diagnostic Testing: Clinical Impression(s) from Imaging Studies Abdomen/Pelvis CT 07/25/22 21:45 IMPRESSION: Mild peripancreatic inflammatory stranding, possible acute interstitial edematous pancreatitis. Electronically Signed: Dylan Lambert MD at 23:35 EDT , Treatment and Re-Evaluation :: CBC and chemistry studies unremarkable. Urinalysis reveals no evidence of infection or hematuria. test is negative. CT scan of the flank reveals no acute findings in the lower abdomen. There is some slight edema noted around the pancreas. Test results are discussed with the patient. She agrees that she has had no upper abdominal pain at all. She states her last menstrual cycle was in February of last year. She takes her control continuously. I advised her that she may start spotting and have a little bit of bleeding given that she has not had any menstrual cycle in the last 18 months. Patient to continue anti-inflammatories and return for worsening symptoms or concerns. Discharge Plan Triage Chief Complaint: Complaint ED Provider: Elvia Lambert Dx/Rx/DC Orders Clinical Impression: Flank pain Instructions: ED Flank Pain, Uncertain Cause Prescriptions: No Action NK Primary Care Provider: Leti Gomez Referrals: Leti Gomez MD [Primary Care Provider] - 1 Week if not improving Disposition Disposition: Home, Self Care
== END 2022-07-25 23:55 | disposition home or self-care (01) ==
PROVIDERS: Emergency Provider Emergency Medicine; PCP Internal Medicine; Visit Provider Emergency Medicine
DX: R10.30 Lower abdominal pain, unspecified (principal); M54.9 Dorsalgia, unspecified; G89.29 Other chronic pain; R35.0 Frequency of micturition
CPT/HCPCS: 74176; 80048; 81001; 81025; 85025; 96361; 96374; 99282; J7030; A4216

== ENCOUNTER → 2023-02-16 | Outpatient (CLI) | payer MEDICAID, SELFPAY ==
--- OUTSIDE RECORDS SUMMARY | 2023-02-16 08:03 | XMS RPT_ITS | CCD ---
Author Name Unknown Address [address] [place] [address] Organization [facility] Care Team Providers Care Airborne Operations Manager Name Role Phone GATITO GAMAL S Unavailable Unavailable KNAPIC, GAMAL S Unavailable Unavailable KNAPIC, GAMAL S Unavailable Unavailable JEANE SEGOVIA Unavailable Unavailable PROVIDER, UNKNOWN Unavailable Unavailable MIRANDA, SINAN C Unavailable Unavailable MIRANDA, SINAN C Unavailable Unavailable MIRANDA, SINAN C Unavailable Unavailable NO, DOCTOR ON Unavailable Unavailable NO, DOCTOR ON Unavailable Unavailable PROVIDER, UNKNOWN Unavailable Unavailable No, PCP Unavailable Unavailable Franco Sharma Unavailable Unavailable Leti Gomez MD Primary Care Provider Leti Gomez MD Primary Care Provider Leti Gomez MD Primary Care Provider Leti Gomez MD Primary Care Provider JENNIFER MISTRY Referring Unavailable GANTA, LETI Primary Care Unavailable GANTA, LETI Primary Care Unavailable GANTA, LETI Primary Care Unavailable GANTA, LETI Primary Care Unavailable OLDER, SARAH Attending Unavailable GANTA, LETI Primary Care Unavailable GANTA, LETI Primary Care Unavailable VERONICA TANNER Referring Unavailable GANTA, LETI Primary Care Unavailable OLDER, SARAH Attending Unavailable MALA HAIR Attending Unavail able GANTA, LETI Primary Care Unavailable MISTRYSELINI Attending Unavailable GANTA, LETI Primary Care Unavailable OLDER, SARAH Referring Unavailable GANTA, LETI Primary Care Unavailable GANTA, LETI Primary Care Unavailable GANTA, LETI Primary Care Unavailable GANTA, LETI Primary Care Unavailable GANTA, LETI Attending Unavailable GANTA, LETI Primary Care Unavailable GANTA, LETI Primary Care Unavailable GANTA, LETI Primary Care Unavailable MALA HAIR Attending Unavail able GANTA, LETI Primary Care Unavailable JENNIFER MISTRY Referring [facility]available [facility] Unavailable JENNIFER MISTRY Referring Unavailable [facility] Primary Care Unavailable Medications Current Medications Medication Drug Class(es) Dates Sig (Normalized) Sig (Original) amoxicillin 500 mg oral tablet (1 source) Penicillin-class Antibacterial Start: 11-28-2021 End: 12-08-2021 take 1 tablet by mouth twice daily Amoxicillin 500 mg tablet Take 1 tablet by mouth twice daily for 10 days. 20 tablet 0 11/28/2021 12/08/2021 Active Completed/Discontinued Medications Medication Drug Class(es) Dates Sig (Normalized) Sig (Original) Ethinyl Estradiol / Norethindrone (20 sources) Estrogen Start: 08-24-2022 take 1 tablet by mouth once daily Norethindrone Acet-Ethinyl Est (,) 1.5-30 mg-mcg Take 1 tablet by mouth once daily. 63 tablet 5 08/24/2022 Active Problems Active Problems Problem Classification Problem Date Documented Da te Episodic/Chronic Abdominal pain (3 sources) Pain in female pelvis; Translations: [Pelvic and perineal pain] Onset: 08-06-2022 Episodic Contraceptive and procreative management (1 source) Oral contraception; Translations: [Encounter for surveillance of contraceptive pills] 08-24-2022 Episodic Headache; including migraine (1 source) Migraine; Translations: [Other migraine, not intractable, without status migrainosus] Chronic Headache; including migraine (1 source) Chronic mixed headache syndrome; Translations: [Other headache syndrome] Episodic Immunizations and screening for infectious disease (6 sources) Tuberculosis screening status; Translations: [Encounter for screening for respiratory tuberculosis] Episodic Other connective tissue disease (2 sources) Pain in leg, unspecified; Translations: [Pain in leg, unspecified] Onset: 12-12-2017 Episodic Other female genital disorders (1 source) Deep pain on intercourse; Translations: [Deep dyspareunia] 08-24-2022 Chronic Other gastrointestinal disorders (1 source) Finding of pelvis; Translations: [Other ascites] 08-24-2022 Episodic Other nervous system disorders (2 sources) Other chronic pain; Translations: [Other chronic pain] Onset: 12-12-2017 Chronic Other non-traumatic joint disorders (1 source) Pain of right wrist; Translations: [Pain in right wrist] Episodic Other nutritional; endocrine; and metabolic disorders (1 source) Overweight; Translations: [Overweight] Episodic Other screening for suspected conditions (not mental disorders or infectious disease) (1 source) Cancer cervix screening status; Translations: [Encounter for screening for malignant neoplasm of cervix] Episodic Other skin disorders (1 source) Eruption; Translations: [Rash and other nonspecific skin eruption] Episodic Other upper respiratory infections (2 sources) Sore throat symptom; Translations: [Acute pharyngitis, unspecified] Episodic Pancreatic disorders (not diabetes) (3 sources) Acute pancreatitis; Translations: [Acute pancreatitis without necrosis or infection, unspecified] Onset: 08-09-2022 Episodic Residual codes; unclassified (1 source) Other specified personal risk factors, not elsewhere classified; Translations: [Other specified personal history presenting hazards to health] Episodic Spondylosis; intervertebral disc disorders; other back problems (4 sources) Lumbago with sciatica, right side; Translations: [Chronic back pain ] Onset: 12-12-2017 Episodic Past or Other Problems Problem Classification Problem Date Documented Da te Episodic/Chronic Malaise and fatigue (2 sources) Fatigue; Translations: [Other fatigue] Onset: 09-11-2021 Episodic Other acquired deformities (3 sources) Spondylolisthesi s, lumbar region; Translations: [Spondylolisthes is, lumbar region] Onset: 09-18-2016 Episodic Other non-traumatic joint disorders (1 source) Pain in right wrist; Translations: [Right wrist pain] Onset: 12-21-2021 Episodic Results Test Name Value Interpretation Reference Range Facil it Vital Signs Date Time Vital Sign Value Performing Clinician Brennan farias 08-24-2022 11:33-0400 Body weight 69.85 kg Mala Ledesma MD Work Phone: [facility] 08-24-2022 11:33-0400 Diastolic blood pressure 70 mm[Hg] Mala Ledesma MD Work Phone: [facility] 08-24-2022 11:33-0400 Systolic blood pressure 114 mm[Hg] Mala Ledesma MD Work Phone: [facility] 08-06-2022 07:29-0400 Body height 162.6 cm Jennifer Mistry PRODUCT SAFETY EXPERT.[employer] DRIVER Work Phone: [facility] 08-06-2022 07:29-0400 Body weight 70.76 kg Jennifer Mistry PRODUCT SAFETY EXPERT.[employer] DRIVER Work Phone: [facility] 08-06-2022 07:29-0400 Diastolic blood pressure 62 mm[Hg] Jennifer Mistry PRODUCT SAFETY EXPERT.[employer] DRIVER Work Phone: [facility] 08-06-2022 07:29-0400 Heart rate 84 /min Jennifer Mistry PRODUCT SAFETY EXPERT.[employer] DRIVER Work Phone: [facility] 08-06-2022 07:29-0400 Respiratory rate 16 /min Jennifer Mistry PRODUCT SAFETY EXPERT.[employer] DRIVER Work Phone: [facility] 08-06-2022 07:29-0400 Systolic blood pressure 108 mm[Hg] Jennifer Mistry PRODUCT SAFETY EXPERT.[employer] DRIVER Work Phone: [facility] 04-25-2022 11:16-0400 Body height 162 cm Mala Ledesma MD Work Phone: [facility] 04-25-2022 11:16-0400 Body weight 73.39 kg Mala Ledesma MD Work Phone: [facility] 04-25-2022 11:16-0400 Diastolic blood pressure 60 mm[Hg] Mala Ledesma MD Work Phone: [facility] 04-25-2022 11:16-0400 Systolic blood pressure 108 mm[Hg] Mala Ledesma MD Work Phone: [facility] 03-09-2022 08:09-0500 Body height 160 cm Leti Gomez MD Work Phone: [facility] 03-09-2022 08:09-0500 Body temperature 97.39 [degF] Leti Gomez MD Work Phone: [facility] 03-09-2022 08:09-0500 Body weight 73.48 kg Leti Gomez MD Work Phone: [facility] 03-09-2022 08:09-0500 Diastolic blood pressure 58 mm[Hg] Leti Gomez MD Work Phone: [facility] 03-09-2022 08:09-0500 Heart rate 88 /min Leti Gomez MD Work Phone: [facility] 03-09-2022 08:09-0500 Respiratory rate 12 /min Leti Gomez MD Work Phone: [facility] 03-09-2022 08:09-0500 SaO2% (BldA) [Mass fraction] 96 % Leti Gomez MD Work Phone: [facility] 03-09-2022 08:09-0500 Systolic blood pressure 118 mm[Hg] Leti Gomez MD Work Phone: [facility] 02-21-2022 16:28-0500 Body weight 73.03 kg Sarah Older PRODUCT SAFETY EXPERT.SUPERVISOR CELL ROOM Work Phone: [facility] 02-21-2022 16:28-0500 Diastolic blood pressure 60 mm[Hg] Sarah Older PRODUCT SAFETY EXPERT.SUPERVISOR CELL ROOM Work Phone: [facility] 02-21-2022 16:28-0500 Heart rate 60 /min Sarah Older PRODUCT SAFETY EXPERT.SUPERVISOR CELL ROOM Work Phone: [facility] 02-21-2022 16:28-0500 Respiratory rate 16 /min Sarah Older PRODUCT SAFETY EXPERT.SUPERVISOR CELL ROOM Work Phone: [facility] 02-21-2022 16:28-0500 Systolic blood pressure 108 mm[Hg] Sarah Older PRODUCT SAFETY EXPERT.SUPERVISOR CELL ROOM Work Phone: [facility] 12-21-2021 16:13-0500 Body temperature 98.71 [degF] Veronica Tanner PRODUCT SAFETY EXPERT.SUPERVISOR CELL ROOM Work Phone: [facility] 12-21-2021 16:13-0500 Body weight 71.4 kg Veronicasoni Tanner PRODUCT SAFETY EXPERT.SUPERVISOR CELL ROOM Work Phone: [facility] 12-21-2021 16:13-0500 Diastolic blood pressure 72 mm[Hg] Veronica Tanner PRODUCT SAFETY EXPERT.SUPERVISOR CELL ROOM Work Phone: [facility] 12-21-2021 16:13-0500 Heart rate 71 /min Veronica Tanner PRODUCT SAFETY EXPERT.SUPERVISOR CELL ROOM Work Phone: [facility] 12-21-2021 16:13-0500 Respiratory rate 18 /min Veronica Tanner PRODUCT SAFETY EXPERT.SUPERVISOR CELL ROOM Work Phone: [facility] 12-21-2021 16:13-0500 SaO2% (BldA) [Mass fraction] 98 % Veronica Tanner PRODUCT SAFETY EXPERT.SUPERVISOR CELL ROOM Work Phone: [facility] 12-21-2021 16:13-0500 Systolic blood pressure 110 mm[Hg] Veronica Tanner PRODUCT SAFETY EXPERT.SUPERVISOR CELL ROOM Work Phone: [facility] 11-28-2021 08:22-0400 Body temperature 99 [degF] Arti Athy PA-C Work Phone: [facility] 11-28-2021 08:22-0400 Body weight 68.95 kg Arti Athy PA-C Work Phone: [facility] 11-28-2021 08:22-0400 Diastolic blood pressure 64 mm[Hg] Arti Athy PA-C Work Phone: [facility] 11-28-2021 08:22-0400 Heart rate 118 /min Arti Athy PA-C Work Phone: [facility] 11-28-2021 08:22-0400 Respiratory rate 18 /min Arti Athy PA-C Work Phone: [facility] 11-28-2021 08:22-0400 SaO2% (BldA) [Mass fraction] 100 % Arti Athy PA-C Work Phone: [facility] 11-28-2021 08:22-0400 Systolic blood pressure 102 mm[Hg] Arti Athy PA-C Work Phone: [facility] 11-27-2021 07:36-0400 Body temperature 99.5 [degF] Cindy Martin PRODUCT SAFETY EXPERT.SUPERVISOR CELL ROOM Work Phone: [facility] 11-27-2021 07:36-0400 Body weight 69.4 kg Cindy Martin PRODUCT SAFETY EXPERT.SUPERVISOR CELL ROOM Work Phone: [facility] 11-27-2021 07:36-0400 Diastolic blood pressure 62 mm[Hg] Cindy Martin PRODUCT SAFETY EXPERT.SUPERVISOR CELL ROOM Work Phone: [facility] 11-27-2021 07:36-0400 Heart rate 125 /min Cindy Martin PRODUCT SAFETY EXPERT.SUPERVISOR CELL ROOM Work Phone: [facility] 11-27-2021 07:36-0400 Respiratory rate 21 /min Cindy Martin PRODUCT SAFETY EXPERT.SUPERVISOR CELL ROOM Work Phone: [facility] 11-27-2021 07:36-0400 SaO2% (BldA) [Mass fraction] 98 % Cindy Martin PRODUCT SAFETY EXPERT.SUPERVISOR CELL ROOM Work Phone: [facility] 11-27-2021 07:36-0400 Systolic blood pressure 102 mm[Hg] Cindy Martin PRODUCT SAFETY EXPERT.SUPERVISOR CELL ROOM Work Phone: [facility] 09-11-2021 09:01-0400 Body height 160 cm Sarah Older PRODUCT SAFETY EXPERT.SUPERVISOR CELL ROOM Work Phone: [facility] 09-11-2021 09:01-0400 Body weight 69.4 kg Sarah Older PRODUCT SAFETY EXPERT.SUPERVISOR CELL ROOM Work Phone: [facility] 09-11-2021 09:01-0400 Diastolic blood pressure 66 mm[Hg] Sarah Older PRODUCT SAFETY EXPERT.SUPERVISOR CELL ROOM Work Phone: [facility] 09-11-2021 09:01-0400 Heart rate 70 /min Sarah Older PRODUCT SAFETY EXPERT.SUPERVISOR CELL ROOM Work Phone: [facility] 09-11-2021 09:01-0400 Respiratory rate 14 /min Sarah Older PRODUCT SAFETY EXPERT.SUPERVISOR CELL ROOM Work Phone: [facility] 09-11-2021 09:01-0400 Systolic blood pressure 110 mm[Hg] Sarah Older PRODUCT SAFETY EXPERT.SUPERVISOR CELL ROOM Work Phone: [facility] Encounters Encounter Date Encounter Type Care Provider Facility Start: 08-24-2022 End: 08-24-2022 ambulatory MALA LEDESMA Facility:[facility] Start: 08-24-2022 End: 08-24-2022 Patient encounter procedure Mala Ledesma MD Work Phone: OB/Gynecology Procedures Date Procedure Procedure Detail Performing Clinician Start: 08-08-2022 Us abdominal real ti me w/image limited Jennifer Mistry PRODUCT SAFETY EXPERT.[employer] DRIVER Work Phone: Start: 03-27-2022 PFIZER-BIONTECH COVI D-19 PRIMARY SERIES VACCINE, AGE 12+ YR Leti Gomez MD Work Phone: Start: 11-28-2021 STREP A MOLECULAR (POC) Arti Pierre PA-C Work Phone: Start: 11-27-2021 STREP A MOLECULAR (POC) Cindy Martin PRODUCT SAFETY EXPERT.SUPERVISOR CELL ROOM Work Phone: Start: 09-11-2021 Adult depression screening assessment Sarah Jaimes PRODUCT SAFETY EXPERT.SUPERVISOR CELL ROOM Work Phone: Start: 07-08-2020 Adult depression screening assessment Leti Gomez MD Work Phone: Plan of Treatment Date Care Activity Detail Author Start: 01-13-2029 Urine microalbumin profile [facility] Start: 04-25-2025 PAP TESTING PAP TESTING [facility] Start: 10-12-2022 Covid-19 Vaccine ( season) Covid-19 Vaccine ( season) [facility] Start: 10-12-2022 Influenza vaccination [facility] Start: 09-11-2022 Adult depression scr eening assessment DEPRESSION SCREENING [facility] Start: 09-11-2022 COVID-19 VACCINE (#1) COVID-19 VACCI NE (#1) [facility] Immunizations Immunization Date Immunization Notes Care Provider Fa cility 03-27-2022 COVID-19 original vaccine, age 12+ yr, monovalent (P[employer] - [facility]) Ma Nurse Work Phone: [facility] Work Phone: 03-13-2022 influenza, injectabl e, quadrivalent, contains preservative Ma Nurse Work Phone: [facility] Work Phone: 03-13-2022 influenza, injectabl e, quadrivalent, preservative free Us 2 Work Phone: [facility] 03-13-2022 influenza virus vacc ine, unspecified formulation Us 2 Work Phone: [facility] 02-28-2022 COVID-19 original vaccine, age 12+ yr, monovalent ([employer] - [facility]) Ma Nurse Work Phone: [facility] Work Phone: 05-09-2020 Human Papillomavirus 9-valent vaccine Leti Gomez MD Work Phone: [facility] 03-06-2019 measles, mumps and rubella virus vaccine Us 2 Work Phone: [facility] 01-13-2019 RHO(D) immune globul in- IV or IM Leti Gomez MD Work Phone: [facility] Work Phone: 01-13-2019 tetanus toxoid, redu tiny diphtheria toxoid, and acellular pertussis vaccine, adsorbed Leti Gomez MD Work Phone: [facility] Work Phone: 12-03-2018 influenza, injectabl e, quadrivalent, contains preservative Leti oGmez MD Work Phone: [facility] 12-07-2016 influenza, injectabl e, quadrivalent, contains preservative Leti Gomez MD Work Phone: [facility] 01-05-2015 influenza, injectabl e, quadrivalent, contains preservative Leti Gomez MD Work Phone: [facility] 01-05-2015 influenza, seasonal, injectable Leti Gomez MD Work Phone: [facility] Work Phone: 02-01-2014 influenza, injectabl e, quadrivalent, preservative free Leti Gomez MD Work Phone: [facility] Work Phone: 02-01-2014 meningococcal polysaccharide (groups A, C, Y and W-135) diphtheria toxoid conjugate vaccine (MCV4P) Leti Gomez MD Work Phone: [facility] Work Phone: 11-14-2012 influenza virus vacc ine, unspecified formulation Leti Gomez MD Work Phone: [facility] Work Phone: 06-03-2012 human papilloma viru s vaccine, quadrivalent Leti Gomez MD Work Phone: [facility] Work Phone: 06-03-2012 varicella virus vaccine Anthony Gomez MD Work Phone: [facility] Work Phone: 01-22-2012 human papilloma viru s vaccine, quadrivalent Leti Gomez MD Work Phone: [facility] Work Phone: 11-14-2011 human papilloma viru s vaccine, quadrivalent Leti Gomez MD Work Phone: [facility] Work Phone: 11-14-2011 influenza virus vacc ine, unspecified formulation Leti Gomez MD Work Phone: [facility] Work Phone: 08-08-2010 Meningococcal, MCV4, unspecified conjugate formulation(groups A, C, Y and W-135) Leti Gomez MD Work Phone: [facility] 08-08-2010 tetanus toxoid, redu tiny diphtheria toxoid, and acellular pertussis vaccine, adsorbed Leti Gomez MD Work Phone: [facility] 06-02-2003 diphtheria, tetanus toxoids and acellular pertussis vaccine Leti Gomez MD Work Phone: [facility] Work Phone: 06-02-2003 measles, mumps and rubella virus vaccine Leti Gomez MD Work Phone: [facility] Work Phone: 06-02-2003 poliovirus vaccine, inactivated Leti Gomez MD Work Phone: [facility] Work Phone: 10-25-1998 diphtheria, tetanus toxoids and acellular pertussis vaccine Leti Gomez MD Work Phone: [facility] Work Phone: 10-25-1998 haemophilus influenz ae type b vaccine, HbOC conjugate Leti Gomez MD Work Phone: [facility] Work Phone: 07-07-1998 measles, mumps and rubella virus vaccine Leti Gomez MD Work Phone: [facility] Work Phone: 07-07-1998 trivalent poliovirus vaccine, live, oral Leti Gomez MD Work Phone: [facility] Work Phone: 07-07-1998 varicella virus vaccine Anthony Gomez MD Work Phone: [facility] Work Phone: 1997 diphtheria, tetanus toxoids and acellular pertussis vaccine Leti Gomez MD Work Phone: [facility] Work Phone: 1997 haemophilus influenz ae type b vaccine, HbOC conjugate Leti Gomez MD Work Phone: [facility] Work Phone: 1997 hepatitis B vaccine, pediatric or pediatric/adolescent dosage Leti Gomez MD Work Phone: [facility] Work Phone: 1997 diphtheria, tetanus toxoids and acellular pertussis vaccine Leti Gomez MD Work Phone: [facility] Work Phone: 1997 haemophilus influenz ae type b vaccine, HbOC conjugate Leti Gomez MD Work Phone: [facility] Work Phone: 1997 poliovirus vaccine, inactivated Leti Gomez MD Work Phone: [facility] Work Phone: 1997 diphtheria, tetanus toxoids and acellular pertussis vaccine Leti Gomez MD Work Phone: [facility] Work Phone: 1997 haemophilus influenz ae type b vaccine, HbOC conjugate Leti Gomez MD Work Phone: [facility] Work Phone: 1997 poliovirus vaccine, inactivated Leti Gomez MD Work Phone: [facility] Work Phone: 1997 hepatitis B vaccine, pediatric or pediatric/adolescent dosage Leti Gomez MD Work Phone: [facility] Work Phone: 1997 hepatitis B vaccine, pediatric or pediatric/adolescent dosage Leti Gomez MD Work Phone: [facility] Work Phone: Payers Date Payer Category Payer Medicaid [id number] 2011 Medicaid [facility] MEDICAID [id number] 2011-Present [phone] [address] [place] [address] Medicaid [id number] 2011 Medicaid [id number] 2011 Unknown [id number] 1997 Unknown [id number] Unknown Social History Date Type Detail Facility Start: 03-29-2016 End: 11-27-2021 Tobacco smoking status NHIS Never smoked tobacco [facility] Start: 03-29-2016 End: 11-27-2021 Tobacco use and exposure Smokeless tobacco non-user [facility] Start: 10-23-2020 End: 08-06-2022 Alcohol intake Current non-drinker of alcohol (finding) [facility] Start: 07-08-2020 End: 02-21-2022 History SDOH Alcohol Frequency 1 [facility] Start: 07-08-2020 End: 02-21-2022 History SDOH Alcohol Std Drinks 98 [facility] Start: 07-08-2020 End: 02-21-2022 History SDOH Social Connections Phone 5 [facility] Start: 07-08-2020 End: 09-10-2021 History SDOH Social Connections Get Together 4 [facility] Start: 07-08-2020 End: 02-21-2022 History SDOH Social Connections Membership 2 [facility] Start: 07-08-2020 History SDOH Social Connections Living 8 [facility] Start: 07-08-2020 End: 02-21-2022 History SDOH Physical Activity DPW 3 [facility] Start: 07-08-2020 History SDOH Physica l Activity MPS 6 [facility] Start: 07-08-2020 Education 15 [facility] Start: 1995 Sex Assigned At Female [facility] Start: 03-04-2021 End: 12-21-2021 Exposure to SARS-CoV-2 (event) Not sure [facility] Start: 09-10-2021 History SDOH Social Connections Living 7 [facility] Start: 02-21-2022 History SDOH Alcohol Std Drinks 0 [facility] Start: 02-21-2022 End: 08-06-2022 History of Social function [place] Start: 02-21-2022 End: 08-06-2022 Social connection and isolation panel [facility] Do you belong to any clubs or organizations such as moravian groups, unions, fraternal or athletic groups, or school groups? No [facility] How often do you att end meetings of the clubs or organizations you belong to? Patient refused [facility] Are you now , , , , never or living with a partner? Refused [facility] How often to you hav e a drink containing alcohol? Never [facility] Do you feel stress - tense, restless, nervous, or anxious, or unable to sleep at night because your mind is troubled all the time - these days [OSQ] Not at all [facility] (I/We) worried wheth er (my/our) food would run out before (I/we) got money to buy more. Never true [facility] Start: 04-24-2021 Gender identity Identifies as female gender (finding) [facility] Clinical Notes 01-14-2019 to 08-24-2022 Mala Hair MD - 08/24/2022 11:33 AM EDTMendEloise good RT(R) - 08/08/2022 7:45 AM EDTResult Encounter Note - Jennifer Mistry APRN.[employer] - 08/08/2022 7:45 AM EDTPatient Instructions Note Date & Type Note Facility 08-24-2022 Note HNO ID: [id number] Author: Mala Ledesma MD Service: ? Author Type: Physician Type: Progress Notes Filed: 08/24/2022 11:57 AM Note Text: Rodrigo Tan is a 27 year old female who presents for follow from pelvic us done by pcp. Pt was seen for ongoing pelvic/abdominal pain s/p bout of pancreatitis. Pt reports doing well overall. Pt had questions about FF on pelvic ultrasound and had questions about ocps. Pt reports has some pain with intercourse just with certain positions. Missed pill due to pharmacy being late filling. Pt offers no other concerns. OB History T1 L1 SAB0 IAB0 Ectopic0 Multiple0 Live Births1 Medical Office Supervisor History LMP: 08/23/2022, Drug Induced Amenorrhea Age at Menarche: Age at First : Age at Menopause: Medical Office Supervisor History Comments: Sexual Activity: Yes; Male Contraception: Pill PAST MEDICAL HISTORY Diagnosis Date Abdominal pain, lower 11/2018 with leukocytosis Concussion 03/26 Fracture of vertebra 12/2012 Dr Mendoza (lumbar) NEGATIVE MEDICAL HISTORY normal color vision PMH - PAST MEDICAL HISTORY OF twin - Twin B PAST SURGICAL HISTORY Procedure Laterality Date APPENDECTOMY 12/11/2018 INJECTION 05/24/2017 spine FAMILY HISTORY Problem Relation Age of Onset other (endomtriosis) Mother No Known Problems Father No Known Problems Sister No Known Problems Brother No Known Problems Maternal Grandmother No Known Problems Maternal Grandfather No Known Problems Paternal Grandmother No Known Problems Paternal Grandfather None Other Social History Tobacco Use Smoking status: Never Smokeless tobacco: Never Vaping Use Vaping Use: Never used Substance Use Topics Alcohol use: No Drug use: No Current Outpatient Medications Medication Sig Norethindrone Acet-Ethinyl Est (,) 1.5-30 mg-mcg Take 1 tablet by mouth once daily. Take one active pill continuously x 3 months No current facility-administered medications for this visit. Allergies As of Date: 08/24/2022 (No Known Allergies) Fully Assessed 08/24/2022 REVIEW OF SYSTEMS Abdomen: no pain Bladder: no dysuria . Expanded ROS: GENERAL: Negative for fever Allergies and current medication updated:Yes EXAM: BP 114/70 Wt 154 lb (69.9kg) LMP 08/23/2022 GENERAL: pleasant, female in no apparent distress HEENT: Normocephalic and atraumatic NECK: full range of motion DERMATOLOGY: without lesions NEURO: alert and oriented x3,exam grossly non-focal EXTREMITIES: normal ASSESSMENT AND PLAN: Encounter Diagnosis ICD-10-CM 1. Abdominal pain in female R10.9 2. Free fluid in pelvis R18.8 3. Oral contraceptive pill surveillance Z30.41 4. Deep dyspareunia N94.12 5. Reviewed pelvic us images- scan ff in cds- discussed normal physiological fluid. Reassurance given. Pain with intercourse reviewed- retroverted uterus likely source of pain with certain positions. No further intervention needed at this time. 6. Reviewed previous abd/pelvic ruq ultrasound results 7. Amylase and lipase labs reviewed 8. OCPs refilled- having difficult time with pharmacy getting on time. Medical Decision Making: Problems: Low: Acute, uncomplicated illness or injury Data: Unique test result(s) reviewed: 3+ Risk: Moderate: Drug management Medical Decision Making Level: 4 - Moderate Mala Martino MD [facility] 08-24-2022 History of Presen t illness Narrative Rodrigo Tan is a 27 year old female who presents for follow from pelvic us done by pcp. Pt was seen for ongoing pelvic/abdominal pain s/p bout of pancreatitis. Pt reports doing well overall. Pt had questions about FF on pelvic ultrasound and had questions about ocps. Pt reports has some pain with intercourse just with certain positions. Missed pill due to pharmacy being late filling. Pt offers no other concerns. OB History T1 L1 SAB0 IAB0 Ectopic0 Multiple0 Live Births1 Medical Office Supervisor History LMP: 08/23/2022, Drug Induced Amenorrhea Age at Menarche: Age at First : Age at Menopause: Medical Office Supervisor History Comments: Sexual Activity: Yes; Male Contraception: Pill PAST MEDICAL HISTORY Diagnosis Date Abdominal pain, lower 11/2018 with leukocytosis Concussion 03/26 Fracture of vertebra 12/2012 Dr Mendoza (lumbar) NEGATIVE MEDICAL HISTORY normal color vision PMH - PAST MEDICAL HISTORY OF twin - Twin B PAST SURGICAL HISTORY Procedure Laterality Date APPENDECTOMY 12/11/2018 INJECTION 05/24/2017 spine FAMILY HISTORY Problem Relation Age of Onset other (endomtriosis) Mother No Known Problems Father No Known Problems Sister No Known Problems Brother No Known Problems Maternal Grandmother No Known Problems Maternal Grandfather No Known Problems Paternal Grandmother No Known Problems Paternal Grandfather None Other Social History Tobacco Use Smoking status: Never Smokeless tobacco: Never Vaping Use Vaping Use: Never used Substance Use Topics Alcohol use: No Drug use: No Current Outpatient Medications Medication Sig Norethindrone Acet-Ethinyl Est (JUNEL .07/10, ,) 1.5-30 mg-mcg Take 1 tablet by mouth once daily. Take one active pill continuously x 3 months No current facility-administered medications for this visit. Allergies As of Date: 08/24/2022 (No Known Allergies) Fully Assessed 08/24/2022 REVIEW OF SYSTEMS Abdomen: no pain Bladder: no dysuria . Expanded ROS: GENERAL: Negative for fever Allergies and current medication updated:Yes EXAM: BP 114/70 Wt 154 lb (69.9kg) LMP 08/23/2022 GENERAL: pleasant, female in no apparent distress HEENT: Normocephalic and atraumatic NECK: full range of motion DERMATOLOGY: without lesions NEURO: alert and oriented x3,exam grossly non-focal EXTREMITIES: normal ASSESSMENT AND PLAN: Encounter Diagnosis ICD-10-CM 1. Abdominal pain in female R10.9 2. Free fluid in pelvis R18.8 3. Oral contraceptive pill surveillance Z30.41 4. Deep dyspareunia N94.12 5. Reviewed pelvic us images- scan ff in cds- discussed normal physiological fluid. Reassurance given. Pain with intercourse reviewed- retroverted uterus likely source of pain with certain positions. No further intervention needed at this time. 6. Reviewed previous abd/pelvic ruq ultrasound results 7. Amylase and lipase labs reviewed 8. OCPs refilled- having difficult time with pharmacy getting on time. Medical Decision Making: Problems: Low: Acute, uncomplicated illness or injury Data: Unique test result(s) reviewed: 3+ Risk: Moderate: Drug management Medical Decision Making Level: 4 - Moderate Mala Martino MD documented in this encounter [facility] 08-08-2022 Note HNO ID: [id number] Author: RT Anderson(Trav) Service: Radiology Author Type: Technologist Type: Progress Notes Filed: 08/08/2022 8:06 AM Note Text: Radiology Service Progress Note PATIENT NAME: Rodrigo Tan DATE OF SERVICE: August 08, 2022 TIME: 8:06 AM PATIENT IDENTITY VERIFICATION COMPLETED USING TWO (2) IDENTIFIERS: Name and Date of confirmed by patient verbally. FALL SCREENING: Has the patient had 2 falls in the last year or 1 fall with injury or currently using an Ambulatory Assistive Device (Walker, Cane, Wheelchair, Crutches, etc.)? No PATIENT GENDER DATA: Female. status: : No status: N/A PATIENT RELEVANT IMPLANT DATA REVIEWED: Not Applicable RADIOLOGY DEPARTMENT: Ultrasound PERIPHERAL IV DATA: Not applicable SIGNED BY: Eloise Espinoza Rdms August 08, 2022 8:06 AM [facility] 08-08-2022 History of Presen t illness Narrative Radiology Service Progress Note PATIENT NAME: Rodrigo Tan DATE OF SERVICE: August 08, 2022 TIME: 8:06 AM PATIENT IDENTITY VERIFICATION COMPLETED USING TWO (2) IDENTIFIERS: Name and Date of confirmed by patient verbally. FALL SCREENING: Has the patient had 2 falls in the last year or 1 fall with injury or currently using an Ambulatory Assistive Device (Walker, Cane, Wheelchair, Crutches, etc.)? No PATIENT GENDER DATA: Female. status: : No status: N/A PATIENT RELEVANT IMPLANT DATA REVIEWED: Not Applicable RADIOLOGY DEPARTMENT: Ultrasound PERIPHERAL IV DATA: Not applicable SIGNED BY: Eloise Espinoza Rdms August 08, 2022 8:06 AM documented in this encounter [facility] 08-08-2022 Miscellaneous Notes RUQ US within normal limits. Pelvic ultrasound within normal limits except for small amount of free fluid documented in this encounter [facility] 08-06-2022 Note HNO ID: [id number] Author: Jennifer Mistry APRN.[employer] Service: ? Author Type: Nurse Specialist Type: Progress Notes Filed: 08/06/2022 8:45 AM Note Text: SUBJECTIVE: COVID-19 VACCINE(3 - Booster for Pfizer series) due on 05/22/2022 HPI Rodrigo Tan is a 27 year old female. 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 On arrival indicates that she was seen at [facility] last week for pelvic pain. Review of outside records indicate back and lower abdominal pain. She reported regular low back pain. Reported back pain and wraparound lower abdomen, left side worse than right. She noted urinary frequency unchanged from her baseline. No history of kidney stones no dysuria. Exam was unremarkable. She was treated with IV fluids and Toradol. Abdomen pelvis CT was completed and showed mild peripancreatic inflammatory stranding consistent with possible acute interstitial edematous pancreatitis. Urinalysis negative for infection or hematuria. Negative test. She was advised to use [id number] anti-inflammatories as needed and return for any worsening or concerning symptoms. No pelvic masses noted. Review of Systems Constitutional: Negative. Respiratory: Negative. Cardiovascular: Negative. Gastrointestinal: Negative. Objective BP 108/62 Pulse 84 Resp 16 Ht 162.6 cm (5' 4 ) Wt 70.8 kg (156 lb) LMP 02/13/2021 BMI 26.78 kg/m? Physical Exam Vitals and nursing note reviewed. Constitutional: Appearance: Normal appearance. HENT: Head: Normocephalic and atraumatic. Eyes: Conjunctiva/sclera: Conjunctivae normal. Neck: Thyroid: No thyromegaly. Vascular: Normal carotid pulses. No JVD. Cardiovascular: Rate and Rhythm: Normal rate and regular rhythm. Pulses: Carotid pulses are 2+ on the right side and 2+ on the left side. Radial pulses are 2+ on the right side and 2+ on the left side. Heart sounds: Normal heart sounds. Pulmonary: Effort: Pulmonary effort is normal. Breath sounds: Normal breath sounds. Abdominal: General: Bowel sounds are normal. Palpations: Abdomen is soft. Tenderness: There is no abdominal tenderness. Musculoskeletal: Right lower leg: No edema. Left lower leg: No edema. Skin: General: Skin is warm and dry. Neurological: General: No focal deficit present. Mental Status: She is alert and oriented to person, place, and time. ALLERGIES No Known Allergies Medication Norethindrone Acet-Ethinyl Est (JUNEL .,) 1.5-30 mg-mcg Take 1 tablet by mouth once daily. Take one active pill continuously x 3 months hydrOXYzine HCl (ATARAX) 25 mg tablet Take 1 tablet by mouth every 6 hours as needed for itching/rash. (Patient not taking: Reported on 08/06/2022) triamcinolone acetonide (KENALOG) 0.1 % cream Apply 1 application to affected area twice daily. Apply sparingly to area for rash/itching for up to 2 weeks (Patient not taking: Reported on 08/06/2022) LIDOCAINE VISCOUS 2 % solution Take 15 mL by mouth as needed. (Patient not taking: Reported on 08/06/2022) topiramate (TOPAMAX) 25 mg tablet Take 1 tablet by mouth twice daily. Take 1 pill daily for a week and then take 2 pills daily to continue. (Patient not taking: Reported on 08/06/2022) PAST MEDICAL HISTORY Diagnosis Date Abdominal pain, lower 11/2018 with leukocytosis Concussion 03/26 Fracture of vertebra 12/2012 Dr Gessler (lumbar) NEGATIVE MEDICAL HISTORY normal color vision PMH - PAST MEDICAL HISTORY OF twin - Twin B Social History Tobacco Use Smoking status: Never Smokeless tobacco: Never Vaping Use Vaping Use: Never used Substance Use Topics Alcohol use: No Drug use: No Component Latest Ref Rng AND Units 09/11/2021 WBC 3.70 - 11.00 k/uL 5.96 RBC 3.90 - 5.20 m/uL 4.30 Hemoglobin 11.5 - 15.5 g/dL 13.0 Hematocrit 36.0 - 46.0 % 41.0 MCV 80.0 - 100.0 fL 95.3 MCH 26.0 - 34.0 pg 30.2 MCHC 30.5 - 36.0 g/dL 31.7 RDW-CV 11.5 - 15.0 % 12.1 Platelet Count 150 - 400 k/uL 264 MPV 9.0 - 12.7 fL 11.7 Neut% % 55.1 Abs Neut (ANC) 1.45 - 7.50 k/uL 3.28 Lymph% % 35.1 Abs Lymph 1.00 - 4.00 k/uL 2.09 [place]% % 7.0 Abs [place] <0.87 k/uL 0.42 Eosin% % 1.5 Abs Eosin <0.46 k/uL 0.09 Baso% % 0.8 Abs Baso <0.11 k/uL 0.05 Immature Gran % % 0.5 IMMATURE GRANS (ABS) <0.10 k/uL 0.03 NRBC /100 WBC 0.0 Absolute nRBC <0.01 k/uL <0.01 DTYPE Auto Protein, Total 6.3 - 8.0 g/dL 6.3 Albumin 3.9 - 4.9 g/dL 4.1 Calcium 8.5 - 10.2 mg/dL 9.2 Bilirubin, Total 0.2 - 1.3 mg/dL 0.4 Alkaline Phosphatase 34 - 123 U/L 36 AST 13 - 35 U/L 17 ALT 7 - 38 U/L 10 Glucose 74 - 99 mg/dL 69 (L) BUN 7 - 21 mg/dL 12 Creatinine 0.58 - 0.96 mg/dL 0.91 Sodium 136 - 144 mmol/L 142 Potassium 3.7 - 5.1 mmol/L 3.9 Chloride 97 - 105 mmol/L 109 (H) CO2 22 - 30 mmol/L 23 Anion Gap 9 - 18 mmol/L 10 eGF (more content not included)... [facility] 08-06-2022 Instructions Jennifer Mistry APRN.CNS - 08/06/2022 8:03 AM EDT Review of hospital records showed possible mild pancreatitis. Some causes of pancreatitis include medications, alcohol, gallstones. Let us know if any upper abdominal pain, nausea or vomiting. Consider completing amylase and lipase levels today. Schedule a follow-up appointment with your [employer] regarding pelvic pain, consider completing ultrasound. documented in this encounter [facility] 08-06-2022 History of Presen t illness Narrative SUBJECTIVE: COVID-19 VACCINE(3 - Booster for Pfizer series) due on 05/22/2022 HPI Rodrigo Tan is a 27 year old female. 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 On arrival indicates that she was seen at [facility] last week for pelvic pain. Review of outside records indicate back and lower abdominal pain. She reported regular low back pain. Reported back pain and wraparound lower abdomen, left side worse than right. She noted urinary frequency unchanged from her baseline. No history of kidney stones no dysuria. Exam was unremarkable. She was treated with IV fluids and Toradol. Abdomen pelvis CT was completed and showed mild peripancreatic inflammatory stranding consistent with possible acute interstitial edematous pancreatitis. Urinalysis negative for infection or hematuria. Negative test. She was advised to use [id number] anti-inflammatories as needed and return for any worsening or concerning symptoms. No pelvic masses noted. Review of Systems Constitutional: Negative. Respiratory: Negative. Cardiovascular: Negative. Gastrointestinal: Negative. Objective BP 108/62 Pulse 84 Resp 16 Ht 162.6 cm (5' 4 ) Wt 70.8 kg (156 lb) LMP 02/13/2021 BMI 26.78 kg/m Physical Exam Vitals and nursing note reviewed. Constitutional: Appearance: Normal appearance. HENT: Head: Normocephalic and atraumatic. Eyes: Conjunctiva/sclera: Conjunctivae normal. Neck: Thyroid: No thyromegaly. Vascular: Normal carotid pulses. No JVD. Cardiovascular: Rate and Rhythm: Normal rate and regular rhythm. Pulses: Carotid pulses are 2+ on the right side and 2+ on the left side. Radial pulses are 2+ on the right side and 2+ on the left side. Heart sounds: Normal heart sounds. Pulmonary: Effort: Pulmonary effort is normal. Breath sounds: Normal breath sounds. Abdominal: General: Bowel sounds are normal. Palpations: Abdomen is soft. Tenderness: There is no abdominal tenderness. Musculoskeletal: Right lower leg: No edema. Left lower leg: No edema. Skin: General: Skin is warm and dry. Neurological: General: No focal deficit present. Mental Status: She is alert and oriented to person, place, and time. ALLERGIES No Known Allergies Medication Norethindrone Acet-Ethinyl Est (JUNEL ,) 1.5-30 mg-mcg Take 1 tablet by mouth once daily. Take one active pill continuously x 3 months hydrOXYzine HCl (ATARAX) 25 mg tablet Take 1 tablet by mouth every 6 hours as needed for itching/rash. (Patient not taking: Reported on 08/06/2022) triamcinolone acetonide (KENALOG) 0.1 % cream Apply 1 application to affected area twice daily. Apply sparingly to area for rash/itching for up to 2 weeks (Patient not taking: Reported on 08/06/2022) LIDOCAINE VISCOUS 2 % solution Take 15 mL by mouth as needed. (Patient not taking: Reported on 08/06/2022) topiramate (TOPAMAX) 25 mg tablet Take 1 tablet by mouth twice daily. Take 1 pill daily for a week and then take 2 pills daily to continue. (Patient not taking: Reported on 08/06/2022) PAST MEDICAL HISTORY Diagnosis Date Abdominal pain, lower 11/2018 with leukocytosis Concussion 03/26 Fracture of vertebra 12/2012 Dr Mendoza (lumbar) NEGATIVE MEDICAL HISTORY normal color vision PMH - PAST MEDICAL HISTORY OF twin - Twin B Social History Tobacco Use Smoking status: Never Smokeless tobacco: Never Vaping Use Vaping Use: Never used Substance Use Topics Alcohol use: No Drug use: No Component Latest Ref Rng & Units 09/11/2021 WBC 3.70 - 11.00 k/uL 5.96 RBC 3.90 - 5.20 m/uL 4.30 Hemoglobin 11.5 - 15.5 g/dL 13.0 Hematocrit 36.0 - 46.0 % 41.0 MCV 80.0 - 100.0 fL 95.3 MCH 26.0 - 34.0 pg 30.2 MCHC 30.5 - 36.0 g/dL 31.7 RDW-CV 11.5 - 15.0 % 12.1 Platelet Count 150 - 400 k/uL 264 MPV 9.0 - 12.7 fL 11.7 Neut% % 55.1 Abs Neut (ANC) 1.45 - 7.50 k/uL 3.28 Lymph% % 35.1 Abs Lymph 1.00 - 4.00 k/uL 2.09 [place]% % 7.0 Abs [place] <0.87 k/uL 0.42 Eosin% % 1.5 Abs Eosin <0.46 k/uL 0.09 Baso% % 0.8 Abs Baso <0.11 k/uL 0.05 Immature Gran % % 0.5 IMMATURE GRANS (ABS) <0.10 k/uL 0.03 NRBC /100 WBC 0.0 Absolute nRBC <0.01 k/uL <0.01 DTYPE Auto Protein, Total 6.3 - 8.0 g/dL 6.3 Albumin 3.9 - 4.9 g/dL 4.1 Calcium 8.5 - 10.2 mg/dL 9.2 Bilirubin, Total 0.2 - 1.3 mg/dL 0.4 Alkaline Phosphatase 34 - 123 U/L 36 AST 13 - 35 U/L 17 ALT 7 - 38 U/L 10 Glucose 74 - 99 mg/dL 69 (L) BUN 7 - 21 mg/dL 12 Creatinine 0.58 - 0.96 mg/dL 0.91 Sodium 136 - 144 mmol/L 142 Potassium 3.7 - 5.1 mmol/L 3.9 Chloride 97 - 105 mmol/L 109 (H) CO2 22 - 30 mmol/L 23 Anion Gap 9 - 18 mmol/L 10 eGFR >=60 mL/min/1.73m 91 TSH 0.270 - 4.200 mIU/L 2.430 Vitamin B12 232-1,245 pg/mL 413 Vitamin D 25 Hydroxy 31.0 - 80.0 ng/mL 35.3 ASSESSMENT/PLAN: 1. Routine medical exam - ICD9: V70.0, ICD10: Z00.00 - Endorse healthy diet and regular exercise - Calcium intake with supplements or by diet of 1000 mg/day 2. Pelvic pain in female - ICD9: 625.9, ICD10: R10.2 - US FEMALE PELVIS TRANSVAG 3. Acute pancreatitis, unspecified complication status, unspecified pancreatitis (primary diagnosis)type - ICD9: 577.0, ICD10: K85.90 - LIPASE BLD - AMYLASE BLD - US ABD RIGHT UPPER QUADRANT Indicates she needs to leave immediately at the end of her appointment, tearful at end of appointment, concerned will be late for work. We will send [employer] message to follow-up and have schedulers call for any additional follow-up she would like to complete. Jennifer Mistry APRN.CNS Medical Decision Making: Problems: Low: Acute, uncomplicated illness or injury Data: Unique test(s) ordered: 3+ Risk: Low: Low risk from testing/treatment Medical Decision Making Level: 3 - Low documented in this encounter [facility] 04-25-2022 Note HNO ID: [id number] Author: Mala Ledesma MD Service: ? Author Type: Physician Type: Progress Notes Filed: 04/25/2022 11:51 AM Note Text: Documentation Nurse offered: Patient declines. Rodrigo is a 26 year old who presents for an annual gynecologic exam with complaints, pelvic pain intermittently. Happy with continuous ocps. Menses: no menses - continuous OCPs. Contraception: combined hormonal contraceptives HPV vaccine: No Last Pap: 08/26/2018 normal HPV: N/A History of abnormal pap: No Last mammogram: never Sexually active: Yes History of STDS: None Patient concerns for STD exposure: No. Last sexual contact: yesterday Time with current partner: 7 years History of ovarian cyst: Yes, Pain with intercourse: after intercourse yesterday, not during Postcoital bleeding: No Hot flashes: No Night sweats: No Vaginal dryness: No OB History T1 L1 SAB0 IAB0 Ectopic0 Multiple0 Live Births1 Medical Office Supervisor History LMP: 02/13/2021, Drug Induced Amenorrhea Age at Menarche: Age at First : Age at Menopause: Medical Office Supervisor History Comments: Sexual Activity: Yes; Male Contraception: Pill PAST MEDICAL HISTORY Diagnosis Date Abdominal pain, lower 11/2018 with leukocytosis Concussion 03/26 Fracture of vertebra 12/2012 Dr Mendoza (lumbar) NEGATIVE MEDICAL HISTORY normal color vision PMH - PAST MEDICAL HISTORY OF twin - Twin B PAST SURGICAL HISTORY Procedure Laterality Date APPENDECTOMY 12/11/2018 INJECTION 05/24/2017 spine FAMILY HISTORY Problem Relation Age of Onset other (endomtriosis) Mother No Known Problems Father No Known Problems Sister No Known Problems Brother No Known Problems Maternal Grandmother No Known Problems Maternal Grandfather No Known Problems Paternal Grandmother No Known Problems Paternal Grandfather None Other SOCIAL HISTORY Social History Tobacco Use Smoking status: Never Smokeless tobacco: Never Vaping Use Vaping Use: Never used Substance Use Topics Alcohol use: No Drug use: No REVIEW OF SYSTEMS Abdomen: No abdominal pain, nausea, vomiting, diarrhea, or constipation. No bloating, early satiety, indigestion, or increased flatulence. Bladder: No dysuria, gross hematuria, urinary frequency, urinary urgency, or incontinence. Breast: No breast lumps, nipple d/c, overlying skin changes, redness or skin retraction. Allergies and current medication updated:Yes EXAM: BP 108/60 Ht 5' 3.78 (1.62m) Wt 161 lb 12.8 oz (73.4kg) LMP 02/13/2021 BMI 27.97 kg/(m2). GENERAL: pleasant, female in no apparent distress HEENT: Normocephalic, atraumatic, mucus membranes moist, and no lesions NECK: Supple, full range of motion, no adenopathy, and thyroid normal DERMATOLOGY: Normal, without lesions, non-icteric, and non-hirsute BREAST: soft, non-tender, symmetric, no dominant mass, normal nipple-areolar complex, no lymphadenopathy, and no nipple discharge ABDOMEN: soft, non-tender, and no masses PELVIC: external genitalia normal, normal Bartholin's glands, urethra, Galva's glands, no vulvar lesions, no cervical lesions, good vaginal support, physiologic discharge present, normal appearing perineal body and perianal region BIMANUAL: uterus normal size, shape and consistency, no adnexal masses, and non-tender RECTOVAGINAL: deferred. NEURO: alert and oriented x3,exam grossly non-focal EXTREMITIES: normal ASSESSMENT/PLAN: 1) Health maintenance: Pap done with reflex HPV. Mammogram starting age 40. Nutrition, exercise and routine health maintenance exams reviewed. Calcium/Vitamin D supplementation information provided. 2) Contraception: combined hormonal contraceptives. Contraceptive options reviewed and information provided. 3) STD screening: Declined STD check. 4) Follow up one year or sooner as needed Mala Martino MD [facility] 04-25-2022 History of Presen t illness Narrative Documentation Nurse offered: Patient declines. Rodrigo is a 26 year old who presents for an annual gynecologic exam with complaints, pelvic pain intermittently. Happy with continuous ocps. Menses: no menses - continuous OCPs. Contraception: combined hormonal contraceptives HPV vaccine: No Last Pap: 08/26/2018 normal HPV: N/A History of abnormal pap: No Last mammogram: never Sexually active: Yes History of STDS: None Patient concerns for STD exposure: No. Last sexual contact: yesterday Time with current partner: 7 years History of ovarian cyst: Yes, Pain with intercourse: after intercourse yesterday, not during Postcoital bleeding: No Hot flashes: No Night sweats: No Vaginal dryness: No OB History T1 L1 SAB0 IAB0 Ectopic0 Multiple0 Live Births1 Medical Office Supervisor History LMP: 02/13/2021, Drug Induced Amenorrhea Age at Menarche: Age at First : Age at Menopause: Medical Office Supervisor History Comments: Sexual Activity: Yes; Male Contraception: Pill PAST MEDICAL HISTORY Diagnosis Date Abdominal pain, lower 11/2018 with leukocytosis Concussion 03/26 Fracture of vertebra 12/2012 Dr Mendoza (lumbar) NEGATIVE MEDICAL HISTORY normal color vision PMH - PAST MEDICAL HISTORY OF twin - Twin B PAST SURGICAL HISTORY Procedure Laterality Date APPENDECTOMY 12/11/2018 INJECTION 05/24/2017 spine FAMILY HISTORY Problem Relation Age of Onset other (endomtriosis) Mother No Known Problems Father No Known Problems Sister No Known Problems Brother No Known Problems Maternal Grandmother No Known Problems Maternal Grandfather No Known Problems Paternal Grandmother No Known Problems Paternal Grandfather None Other SOCIAL HISTORY Social History Tobacco Use Smoking status: Never Smokeless tobacco: Never Vaping Use Vaping Use: Never used Substance Use Topics Alcohol use: No Drug use: No REVIEW OF SYSTEMS Abdomen: No abdominal pain, nausea, vomiting, diarrhea, or constipation. No bloating, early satiety, indigestion, or increased flatulence. Bladder: No dysuria, gross hematuria, urinary frequency, urinary urgency, or incontinence. Breast: No breast lumps, nipple d/c, overlying skin changes, redness or skin retraction. Allergies and current medication updated:Yes EXAM: BP 108/60 Ht 5' 3.78 (1.62m) Wt 161 lb 12.8 oz (73.4kg) LMP 02/13/2021 BMI 27.97 kg/(m^2). GENERAL: pleasant, female in no apparent distress HEENT: Normocephalic, atraumatic, mucus membranes moist, and no lesions NECK: Supple, full range of motion, no adenopathy, and thyroid normal DERMATOLOGY: Normal, without lesions, non-icteric, and non-hirsute BREAST: soft, non-tender, symmetric, no dominant mass, normal nipple-areolar complex, no lymphadenopathy, and no nipple discharge ABDOMEN: soft, non-tender, and no masses PELVIC: external genitalia normal, normal Bartholin's glands, urethra, Galva's glands, no vulvar lesions, no cervical lesions, good vaginal support, physiologic discharge present, normal appearing perineal body and perianal region BIMANUAL: uterus normal size, shape and consistency, no adnexal masses, and non-tender RECTOVAGINAL: deferred. NEURO: alert and oriented x3,exam grossly non-focal EXTREMITIES: normal ASSESSMENT/PLAN: 1) Health maintenance: Pap done with reflex HPV. Mammogram starting age 40. Nutrition, exercise and routine health maintenance exams reviewed. Calcium/Vitamin D supplementation information provided. 2) Contraception: combined hormonal contraceptives. Contraceptive options reviewed and information provided. 3) STD screening: Declined STD check. 4) Follow up one year or sooner as needed Mala Martino MD documented in this encounter [facility] 03-27-2022 Note HNO ID: [id number] Author: Nan Webster LPN Service: ? Author Type: ? Type: Progress Notes Filed: 03/27/2022 1:17 PM Note Text: Patient presents for COVID vaccine. Denies any problems at this time. Tolerated injection well. Nan Webster LPN [facility] 03-27-2022 History of Presen t illness Narrative Patient presents for COVID vaccine. Denies any problems at this time. Tolerated injection well. Nan Webster LPN documented in this encounter [facility] 03-14-2022 Note HNO ID: [id number] Author: Nan Webster LPN Service: ? Author Type: ? Type: Progress Notes Filed: 03/14/2022 2:54 PM Note Text: Patient presents for PPD read only. Denies any problems at this time. Nan Webster LPN [facility] 03-12-2022 Note HNO ID: [id number] Author: Nan Webster LPN Service: ? Author Type: ? Type: Progress Notes Filed: 03/12/2022 3:04 PM Note Text: Patient presents for PPD administration only. Denies any problems at this time. Tolerated injection well. Nan Webster LPN [facility] 03-12-2022 History of Presen t illness Narrative Patient presents for PPD administration only. Denies any problems at this time. Tolerated injection well. Nan Webster LPN documented in this encounter [facility] 03-09-2022 Note HNO ID: [id number] Author: Leti Gomez MD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 daily for a week and then take 2 pills daily to continue. Norethindrone Acet-Ethinyl Est (JUNE.07/10, ,) 1.5-30 mg-mcg Take 1 tablet by mouth once daily. Take one active pill continuously x 3 months LIDOCAINE VISCOUS 2 % solution Take 15 mL by mouth as needed. FAMILY HISTORY Problem Relation Age of Onset other (endomtriosis) Mother No Known Problems Father No Known Problems Sister No Known Problems Brother No Known Problems Maternal Grandmother No Known Problems Maternal Grandfather No Known Problems Paternal Grandmother No Known Problems Paternal Grandfather None Other Social History Tobacco Use Smoking status: Never Smokeless tobacco: Never Vaping Use Vaping Use: Never used Substance Use Topics Alcohol use: No Drug use: No Review of Systems Constitutional: Negative for activity change, appetite change, fatigue and fever. Eyes: Negative for pain, discharge, redness and itching. Respiratory: Negative for apnea, cough, choking and chest tightness. Cardiovascular: Negative for chest pain. Gastrointestinal: Negative for abdominal pain, diarrhea, nausea and vomiting. Musculoskeletal: Negative for arthralgias and back pain. Right wrist pain Skin: Negative for color change, pallor, rash and wound. Allergic/Immunologic: Negative for environmental allergies, food allergies and immunocompromised state. Neurological: Negative for dizziness, tingling, facial asymmetry, light-headedness, numbness and headaches. Hematological: Negative for adenopathy. Does not bruise/bleed easily. Psychiatric/Behavioral: Negative for agitation and behavioral problems. Objective BP 110/72 Pulse 71 Temp 37.1 C (98.7 F) (Tympanic) Resp 18 Wt 71.4 kg (157 lb 6.4 oz) LMP 02/13/2021 SpO2 98% BMI 27.88 kg/m Physical Exam Vitals and nursing note reviewed. Constitutional: General: She is not in acute distress. Appearance: Normal appearance. She is normal weight. She is not ill-appearing, toxic-appearing or diaphoretic. HENT: Head: Normocephalic and atraumatic. Right Ear: Ear canal and external ear normal. Left Ear: Ear canal and external ear normal. Nose: Nose normal. No congestion or rhinorrhea. Mouth/Throat: Mouth: Mucous membranes are moist. Pharynx: No oropharyngeal exudate or posterior oropharyngeal erythema. Eyes: General: Right eye: No discharge. Left eye: No discharge. Extraocular Movements: Extraocular movements intact. Conjunctiva/sclera: Conjunctivae normal. Pupils: Pupils are equal, round, and reactive to light. Cardiovascular: Rate and Rhythm: Normal rate and regular rhythm. Pulses: Normal pulses. Heart sounds: Normal heart sounds. No murmur heard. No friction rub. Pulmonary: Effort: Pulmonary effort is normal. No respiratory distress. Breath sounds: Normal breath sounds. No stridor. No wheezing, rhonchi or rales. Chest: Chest wall: No tenderness. Abdominal: General: Abdomen is flat. There is no distension. Palpations: Abdomen is soft. There is no mass. Tenderness: There is no abdominal tenderness. There is no right CVA tenderness, left CVA tenderness, guarding or rebound. Hernia: No hernia is present. Musculoskeletal: General: No swelling, tenderness, deformity or signs of injury. Normal range of motion. Hands: Cervical back: Normal range of motion and neck supple. No rigidity. Right lower leg: No edema. Left lower leg: No edema. Lymphadenopathy: Cervical: No cervical adenopathy. Skin: General: Skin is warm and dry. Coloration: Skin is not jaundiced or pale. Findings: No bruising, erythema, lesion or rash. Neurological: General: No focal deficit present. Mental Status: She is alert and oriented to person, place, and time. Cranial Nerves: No cranial nerve deficit. Sensory: No sensory deficit. Motor: No weakness. Coordination: Coordination normal. Gait: Gait normal. Psychiatric: Mood and Affect: Mood normal. Behavior: Behavior normal. Thought Content: Thought content normal. Judgment: Judgment normal. Assessment and Plan ASSESSMENT/PLAN: 1. Right wrist pain - ICD9: 719.43, ICD10: M25.531 X 3 days Occurred with lifting child No direct blow or trauma Presents with continued symptoms - XR WRIST GENERAL 3V PA/LAT/OBL RIGHT-negative for fracture or acute process Velcro wrist immobilizer off the shelf provided to patient RICE therapy OTC analgesics Follow up with PCP if symptoms persist. Veronica Tanner APRN.[facility] documented in this encounter [facility] 11-28-2021 Note HNO ID: [id number] Author: Arti Pierre PA-C Service: ? Author Type: Physician Assistant Product Manager Type: Progress Notes Filed: 11/28/2021 12:13 PM Note Text: This note was created using [employer]. Subjective Rodrigo Tan is a 26 year old female. HPI Patient presents with right ear pain and sore throat for 3 days. Her daughter tested positive for strep yesterday. She has a mild cough. No fever. 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 She states the sore throat has worsened. It hurts a lot to cough in her throat. Review of Systems Constitutional: Negative. HENT: Positive for congestion and sore throat. Respiratory: Positive for cough. All other systems reviewed and are negative. PAST MEDICAL HISTORY Diagnosis Date Abdominal pain, lower 11/2018 with leukocytosis Concussion 03/26 Fracture of vertebra 12/2012 Dr Mendoza (lumbar) NEGATIVE MEDICAL HISTORY normal color vision PMH - PAST MEDICAL HISTORY OF twin - Twin B Current Outpatient Medications Medication Sig Dispense Refill topiramate (TOPAMAX) 25 mg tablet Take 1 tablet by mouth twice daily. Take 1 pill daily for a week and then take 2 pills daily to continue. 60 tablet 5 Norethindrone Acet-Ethinyl Est (JUNEL .07/10, ,) 1.5-30 mg-mcg Take 1 tablet by mouth once daily. Take one active pill continuously x 3 months 84 tablet 3 predniSONE (DELTASONE) 20 mg tablet Take 2 tablets by mouth once daily for 5 days. 10 tablet 0 LIDOCAINE VISCOUS 2 % solution Take 15 mL by mouth as needed. 100 mL 0 Amoxicillin 500 mg tablet Take 1 tablet by mouth twice daily for 10 days. 20 tablet 0 No current facility-administered medications for this visit. PAST SURGICAL HISTORY Procedure Laterality Date APPENDECTOMY 12/11/2018 INJECTION 05/24/2017 spine FAMILY HISTORY Problem Relation Age of Onset other (endomtriosis) Mother No Known Problems Father No Known Problems Sister No Known Problems Brother No Known Problems Maternal Grandmother No Known Problems Maternal Grandfather No Known Problems Paternal Grandmother No Known Problems Paternal Grandfather None Other Social History Tobacco Use Smoking status: Never Smokeless tobacco: Never Vaping Use Vaping Use: Never used Substance Use Topics Alcohol use: No Drug use: No Objective BP 102/64 Pulse 118 Temp 37.2 ?C (99 ?F) Resp 18 Wt 68.9 kg (152 lb) LMP 02/13/2021 SpO2 100% BMI 26.93 kg/m? Physical Exam Vitals reviewed. Constitutional: Appearance: Normal appearance. HENT: Head: Normocephalic and atraumatic. Right Ear: Tympanic membrane, ear canal and external ear normal. Left Ear: Tympanic membrane, ear canal and external ear normal. Nose: Congestion present. Mouth/Throat: Mouth: Mucous membranes are moist. Pharynx: Uvula midline. Pharyngeal swelling and posterior oropharyngeal erythema present. No oropharyngeal exudate or uvula swelling. Tonsils: No tonsillar exudate. 2+ on the right. 2+ on the left. Cardiovascular: Rate and Rhythm: Normal rate and regular rhythm. Heart sounds: Normal heart sounds. Pulmonary: Effort: Pulmonary effort is normal. Breath sounds: Normal breath sounds. Musculoskeletal: Cervical back: Neck supple. Lymphadenopathy: Cervical: Cervical adenopathy present. Skin: General: Skin is warm and dry. Neurological: General: No focal deficit present. Mental Status: She is alert. Assessment and Plan ASSESSMENT/PLAN: 1. Sore throat - ICD9: 462, ICD10: J02.9 - Alere Strep Test neg, no culture pending Patient exposed to strep from daughter with worsening symptom, neg strep here. Discussed trying prednisone and viscous lido and given amoxil if sore throat worsening. - STREP A MOLECULAR (POC) Arti Pierre PA-C [facility] 11-28-2021 History of Presen t illness Narrative This note was created using [employer]. Subjective Rodrigo Tan is a 26 year old female. HPI Patient presents with right ear pain and sore throat for 3 days. Her daughter tested positive for strep yesterday. She has a mild cough. No fever. 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 She states the sore throat has worsened. It hurts a lot to cough in her throat. Review of Systems Constitutional: Negative. HENT: Positive for congestion and sore throat. Respiratory: Positive for cough. All other systems reviewed and are negative. PAST MEDICAL HISTORY Diagnosis Date Abdominal pain, lower 11/2018 with leukocytosis Concussion 03/26 Fracture of vertebra 12/2012 Dr Mendoza (lumbar) NEGATIVE MEDICAL HISTORY normal color vision PMH - PAST MEDICAL HISTORY OF twin - Twin B Current Outpatient Medications Medication Sig Dispense Refill topiramate (TOPAMAX) 25 mg tablet Take 1 tablet by mouth twice daily. Take 1 pill daily for a week and then take 2 pills daily to continue. 60 tablet 5 Norethindrone Acet-Ethinyl Est (JUNEL 1.5/30, 21,) 1.5-30 mg-mcg Take 1 tablet by mouth once daily. Take one active pill continuously x 3 months 84 tablet 3 predniSONE (DELTASONE) 20 mg tablet Take 2 tablets by mouth once daily for 5 days. 10 tablet 0 LIDOCAINE VISCOUS 2 % solution Take 15 mL by mouth as needed. 100 mL 0 Amoxicillin 500 mg tablet Take 1 tablet by mouth twice daily for 10 days. 20 tablet 0 No current facility-administered medications for this visit. PAST SURGICAL HISTORY Procedure Laterality Date APPENDECTOMY 12/11/2018 INJECTION 05/24/2017 spine FAMILY HISTORY Problem Relation Age of Onset other (endomtriosis) Mother No Known Problems Father No Known Problems Sister No Known Problems Brother No Known Problems Maternal Grandmother No Known Problems Maternal Grandfather No Known Problems Paternal Grandmother No Known Problems Paternal Grandfather None Other Social History Tobacco Use Smoking status: Never Smokeless tobacco: Never Vaping Use Vaping Use: Never used Substance Use Topics Alcohol use: No Drug use: No Objective BP 102/64 Pulse 118 Temp 37.2 C (99 F) Resp 18 Wt 68.9 kg (152 lb) LMP 02/13/2021 SpO2 100% BMI 26.93 kg/m Physical Exam Vitals reviewed. Constitutional: Appearance: Normal appearance. HENT: Head: Normocephalic and atraumatic. Right Ear: Tympanic membrane, ear canal and external ear normal. Left Ear: Tympanic membrane, ear canal and external ear normal. Nose: Congestion present. Mouth/Throat: Mouth: Mucous membranes are moist. Pharynx: Uvula midline. Pharyngeal swelling and posterior oropharyngeal erythema present. No oropharyngeal exudate or uvula swelling. Tonsils: No tonsillar exudate. 2+ on the right. 2+ on the left. Cardiovascular: Rate and Rhythm: Normal rate and regular rhythm. Heart sounds: Normal heart sounds. Pulmonary: Effort: Pulmonary effort is normal. Breath sounds: Normal breath sounds. Musculoskeletal: Cervical back: Neck supple. Lymphadenopathy: Cervical: Cervical adenopathy present. Skin: General: Skin is warm and dry. Neurological: General: No focal deficit present. Mental Status: She is alert. Assessment and Plan ASSESSMENT/PLAN: 1. Sore throat - ICD9: 462, ICD10: J02.9 - Alere Strep Test neg, no culture pending Patient exposed to strep from daughter with worsening symptom, neg strep here. Discussed trying prednisone and viscous lido and given amoxil if sore throat worsening. - STREP A MOLECULAR (POC) Arti Pierre PA-C documented in this encounter [facility] 11-27-2021 Influenza virus A and B RNA and SARS-CoV-2 (COVID-19) N gene panel JOSE+probe (Resp) COVID 19 RESULT: SARS-CoV-2 (Agent of COVID-19) Not Detected by RT-PCR or equivalent method. henna [id number] (MADDY)_EUA This test was developed and its performance characteristics determined by [facility]'s [facility] [place]. This test has been authorized by FDA under an Emergency Use Authorization (EUA). This test has been validated in accordance with the FDA's Guidance Document Policy for Diagnostics Testing in Laboratories Certified to Perform High Complexity Testing under CLIA prior to Emergency use Authorization for Coronavirus Disease 2019 during the Public Health Emergency issued on April 11, 2019. Test performed by [facility], [facility] [place], [address] [place] [address]. INFLUENZA A PCR: Negative for Influenza A by RT-PCR INFLUENZA B PCR: Negative for Influenza B by RT-PCR [facility] documented as of this encounter (statuses as of 05/12/2021) [facility] History of Past illness Narrative* Problem Noted Date Resolved Date Abnormal glucose in , antepartum 201803/24/2019 Encounter for supervision of normal first in first trimester 09/17/2018 03/24/2019 Overview: 01/14/19 1 hr GCT 162. 3 hr GTT ordered. Niharika Willams APRN.SUPERVISOR CELL ROOM Patient request for diagnostic testing 9 09/17/2018 Overview: 08/20/2018Desires nuchal ultrasound. Considering genetic carrier screening testing. TKRN Spondylolisthesis, lumbar region 12/31/2017 04/17/2019 Overview: Patient has a history of chronic back pain due to fractures vertebrae in 2012- lower lunbar. Had injections in the past to treat it. Desires anesthesia consult prior to delivery. TKRN Head injury 04/15/2012 12/31/2018 documented as of this encounter (statuses as of 09/11/2021) [facility] History of Past illness Narrative* Problem Noted Date Resolved Date Abnormal glucose in , antepartum 201803/24/2019 Encounter for supervision of normal first in first trimester 09/17/2018 03/24/2019 Overview: 01/14/19 1 hr GCT 162. 3 hr GTT ordered. Niharika Willams APRN.SUPERVISOR CELL ROOM Patient request for diagnostic testing 9 09/17/2018 Overview: 08/20/2018Desires nuchal ultrasound. Considering genetic carrier screening testing. TKRN Spondylolisthesis, lumbar region 12/31/2017 04/17/2019 Overview: Patient has a history of chronic [facility] Had injections in the past to treat it. Desires anesthesia consult prior to delivery. TKRN Head injury 04/15/2012 12/31/2018 documented as of this encounter (statuses as of 11/27/2021) [facility] History of Past illness Narrative* Problem Noted Date Resolved Date Abnormal glucose in , antepartum 201803/24/2019 Encounter for supervision of normal first in first trimester 09/17/2018 03/24/2019 Overview: 01/14/19 1 hr GCT 162. 3 hr GTT ordered. Niharika Willams APRN.SUPERVISOR CELL ROOM Patient request for diagnostic testing 9 09/17/2018 Overview: 08/20/2018Desires nuchal ultrasound. Considering genetic carrier screening testing. TKRN Spondylolisthesis, lumbar region 12/31/2017 04/17/2019 Overview: Patient has a history of chronic back pain due to fractures vertebrae in 2012- lower lunbar. Had injections in the past to treat it. Desires anesthesia consult prior to delivery. TKRN Head injury 04/15/2012 12/31/2018 documented as of this encounter (statuses as of 11/28/2021) [facility] History of Past illness Narrative* Problem Noted Date Resolved Date Abnormal glucose in , antepartum 201803/24/2019 Encounter for supervision of normal first in first trimester 09/17/2018 03/24/2019 Overview: 01/14/19 1 hr GCT 162. 3 hr GTT ordered. Niharika Willams APRN.SUPERVISOR CELL ROOM Patient request for diagnostic testing 9 09/17/2018 Overview: 08/20/2018Desires nuchal ultrasound. Considering genetic carrier screening testing. TKRN Spondylolisthesis, lumbar region 12/31/2017 04/17/2019 Overview: Patient has a history of chronic back pain due to fractures vertebrae in 2012- lower lunbar. Had injections in the past to treat it. Desires anesthesia consult prior to delivery. TKRN Head injury 04/15/2012 12/31/2018 documented as of this encounter (statuses as of 12/21/2021) [facility] of Past illness Narrative* Problem Noted Date Resolved Date Abnormal glucose in , antepartum 201803/24/2019 Encounter for supervision of normal first in first trimester 09/17/2018 03/24/2019 Overview: 01/14/19 1 hr GCT 162. 3 hr GTT ordered. Niharika Willams APRN.SUPERVISOR CELL ROOM Patient request for diagnostic testing 9 09/17/2018 Overview: 08/20/2018Desires nuchal ultrasound. Considering genetic carrier screening testing. TKRN Spondylolisthesis, lumbar region 12/31/2017 04/17/2019 Overview: Patient has a history of chronic back pain due to fractures vertebrae in 2012- lower lunbar. Had injections in the past to treat it. Desires anesthesia consult prior to delivery. TKRN Head injury 04/15/2012 12/31/2018 documented as of this encounter (statuses as of 02/21/2022) [facility] of Past illness Narrative* Problem Noted Date Resolved Date Abnormal glucose in , antepartum 201803/24/2019 Encounter for supervision of normal first in first trimester 09/17/2018 03/24/2019 Overview: 01/14/19 1 hr GCT 162. 3 hr GTT ordered. Niharika Willams APRN.SUPERVISOR CELL ROOM Patient request for diagnostic testing 9 09/17/2018 Overview: 08/20/2018Desires nuchal ultrasound. Considering genetic carrier screening testing. TKRN Spondylolisthesis, lumbar region 12/31/2017 04/17/2019 Overview: Patient has a history of chronic back pain due to fractures vertebrae in 2012- lower lunbar. Had injections in the past to treat it. Desires anesthesia consult prior to delivery. TKRN Head injury 04/15/2012 12/31/2018 documented as of this encounter (statuses as of 02/23/2022) [facility] History of Past illness Narrative* Problem Noted Date Resolved Date Abnormal glucose in , antepartum 201803/24/2019 Encounter for supervision of normal first in first trimester 09/17/2018 03/24/2019 Overview: 01/14/19 1 hr GCT 162. 3 hr GTT ordered. Niharika Willams APRN.SUPERVISOR CELL ROOM Patient request for diagnostic testing 9 09/17/2018 Overview: 08/20/2018Desires nuchal ultrasound. Considering genetic carrier screening testing. TKRN Spondylolisthesis, lumbar region 12/31/2017 04/17/2019 Overview: Patient has a history of chronic back pain due to fractures vertebrae in 2012- lower lunbar. Had injections in the past to treat it. Desires anesthesia consult prior to delivery. TKRN Head injury 04/15/2012 12/31/2018 documented as of this encounter (statuses as of 02/28/2022) [facility] of Past illness Narrative* Problem Noted Date Resolved Date Abnormal glucose in , antepartum 201803/24/2019 Encounter for supervision of normal first in first trimester 09/17/2018 03/24/2019 Overview: 01/14/19 1 hr GCT 162. 3 hr GTT ordered. Niharika Willams APRN.SUPERVISOR CELL ROOM Patient request for diagnostic testing 9 09/17/2018 Overview: 08/20/2018Desires nuchal ultrasound. Considering genetic carrier screening testing. TKRN Spondylolisthesis, lumbar region 12/31/2017 04/17/2019 Overview: Patient has a history of chronic back pain due to fractures vertebrae in 2012- lower lunbar. Had injections in the past to treat it. Desires anesthesia consult prior to delivery. TKRN Head injury 04/15/2012 12/31/2018 documented as of this encounter (statuses as of 03/02/2022) [facility] of Past illness Narrative* Problem Noted Date Resolved Date Abnormal glucose in , antepartum 201803/24/2019 Encounter for supervision of normal first in first trimester 09/17/2018 03/24/2019 Overview: 01/14/19 1 hr GCT 162. 3 hr GTT ordered. Niharika Willams APRN.SUPERVISOR CELL ROOM Patient request for diagnostic testing 9 09/17/2018 Overview: 08/20/2018Desires nuchal ultrasound. Considering genetic carrier screening testing. TKRN Spondylolisthesis, lumbar region 12/31/2017 04/17/2019 Overview: Patient has a history of chronic back pain due to fractures vertebrae in 2012- lower lunbar. Had injections in the past to treat it. Desires anesthesia consult prior to delivery. TKRN Head injury 04/15/2012 12/31/2018 documented as of this encounter (statuses as of 03/06/2022) [facility] of Past illness Narrative* Problem Noted Date Resolved Date Abnormal glucose in , antepartum 201803/24/2019 Encounter for supervision of normal first in first trimester 09/17/2018 03/24/2019 Overview: 01/14/19 1 hr GCT 162. 3 hr GTT ordered. Niharika Willams APRN.SUPERVISOR CELL ROOM Patient request for diagnostic testing 9 09/17/2018 Overview: 08/20/2018Desires nuchal ultrasound. Considering genetic carrier screening testing. TKRN Spondylolisthesis, lumbar region 12/31/2017 04/17/2019 Overview: Patient has a history of chronic back pain due to fractures vertebrae in 2012- lower lunbar. Had injections in the past to treat it. Desires anesthesia consult prior to delivery. TKRN Head injury 04/15/2012 12/31/2018 documented as of this encounter (statuses as of 03/09/2022) [facility] History of Past illness Narrative* Problem Noted Date Resolved Date Abnormal glucose in , antepartum 201803/24/2019 Encounter for supervision of normal first in first trimester 09/17/2018 03/24/2019 Overview: 01/14/19 1 hr GCT 162. 3 hr GTT ordered. Niharika Willams APRN.SUPERVISOR CELL ROOM Patient request for diagnostic testing 9 09/17/2018 Overview: 08/20/2018Desires nuchal ultrasound. Considering genetic carrier screening testing. TKRN Spondylolisthesis, lumbar region 12/31/2017 04/17/2019 Overview: Patient has a history of chronic back pain due to fractures vertebrae in 2012- lower lunbar. Had injections in the past to treat it. Desires anesthesia consult prior to delivery. TKRN Head injury 04/15/2012 12/31/2018 documented as of this encounter (statuses as of 03/12/2022) [facility] History of Past illness Narrative* Problem Noted Date Resolved Date Abnormal glucose in , antepartum 201803/24/2019 Encounter for supervision of normal first in first trimester 09/17/2018 03/24/2019 Overview: 01/14/19 1 hr GCT 162. 3 hr GTT ordered. Niharika Willams APRN.SUPERVISOR CELL ROOM Patient request for diagnostic testing 9 09/17/2018 Overview: 08/20/2018Desires nuchal ultrasound. Considering genetic carrier screening testing. TKRN Spondylolisthesis, lumbar region 12/31/2017 04/17/2019 Overview: Patient has a history of chronic [facility] Had injections in the past to treat it. Desires anesthesia consult prior to delivery. TKRN Head injury 04/15/2012 12/31/2018 documented as of this encounter (statuses as of 03/27/2022) [facility] History of Past illness Narrative* Problem Noted Date Resolved Date Abnormal glucose in , antepartum 201803/24/2019 Encounter for supervision of normal first in first trimester 09/17/2018 03/24/2019 Overview: 01/14/19 1 hr GCT 162. 3 hr GTT ordered. Niharika Willams APRN.SUPERVISOR CELL ROOM Patient request for diagnostic testing 9 09/17/2018 Overview: 08/20/2018Desires nuchal ultrasound. Considering genetic carrier screening testing. TKRN Spondylolisthesis, lumbar region 12/31/2017 04/17/2019 Overview: Patient has a history of chronic back pain due to fractures vertebrae in 2012- lower lunbar. Had injections in the past to treat it. Desires anesthesia consult prior to delivery. TKRN Head injury 04/15/2012 12/31/2018 documented as of this encounter (statuses as of 04/25/2022) [facility] History of Past illness Narrative* Problem Noted Date Resolved Date Abnormal glucose in , antepartum 201803/24/2019 Encounter for supervision of normal first in first trimester 09/17/2018 03/24/2019 Overview: 01/14/19 1 hr GCT 162. 3 hr GTT ordered. Niharika Willams APRN.SUPERVISOR CELL ROOM Patient request for diagnostic testing 9 09/17/2018 Overview: 08/20/2018Desires nuchal ultrasound. Considering genetic carrier screening testing. TKRN Spondylolisthesis, lumbar region 12/31/2017 04/17/2019 Overview: Patient has a history of chronic back [facility] due [facility] Had injections in the past to treat it. Desires anesthesia consult prior to delivery. TKRN Head injury 04/15/2012 12/31/2018 documented as of this encounter (statuses as of 05/28/2022) [facility] History of Past illness Narrative* Problem Noted Date Resolved Date Abnormal glucose in , antepartum 201803/24/2019 Encounter for supervision of normal first in first trimester 09/17/2018 03/24/2019 Overview: 01/14/19 1 hr GCT 162. 3 hr GTT ordered. Niharika Willams APRN.SUPERVISOR CELL ROOM Patient request for diagnostic testing 9 09/17/2018 Overview: 08/20/2018Desires nuchal ultrasound. Considering genetic carrier screening testing. TKRN Spondylolisthesis, lumbar region 12/31/2017 04/17/2019 Overview: Patient has a history of chronic back pain due to fractures vertebrae in 2012- lower lunbar. Had injections in the past to treat it. Desires anesthesia consult prior to delivery. TKRN Head injury 04/15/2012 12/31/2018 documented as of this encounter (statuses as of 08/06/2022) [facility] History of Past illness Narrative* Problem Noted Date Diagnosed Date Resolved Date Abnormal glucose in , antepartum 01/14/2019 03/24/2019 Encounter for supervision of normal first in first trimester 09/17/2018 03/24/2019 Overview: 01/14/19 1 hr GCT 162. 3 hr GTT ordered. Niharika Willams APRN.SUPERVISOR CELL ROOM Patient request for diagnostic testing 08/20/2018 09/17/2018 Overview: 08/20/2018Desires nuchal ultrasound. Considering genetic carrier screening testing. TKRN Spondylolisthesis, lumbar region 12/31/2017 04/17/2019 Overview: Patient has a history of chronic back pain due to fractures vertebrae in 2012- lower lunbar. Had injections in the past to treat it. Desires anesthesia consult prior to delivery. TKRN Head injury 04/15/2012 12/31/2018 documented as of this encounter (statuses as of 08/24/2022) [facility] History of Past illness Narrative* Problem Noted Date Diagnosed Date Resolved Date Abnormal glucose in , antepartum 01/14/2019 03/24/2019 Encounter for supervision of normal first in first trimester 09/17/2018 03/24/2019 Overview: 01/14/19 1 hr GCT 162. 3 hr GTT ordered. Niharika Willams APRN.SUPERVISOR CELL ROOM Patient request for diagnostic testing 08/20/2018 09/17/2018 Overview: 08/20/2018Desires nuchal ultrasound. Considering genetic carrier screening testing. TKRN Spondylolisthesis, lumbar region 12/31/2017 04/17/2019 Overview: Patient has a history of chronic back pain due to fractures vertebrae in 2012- lower lunbar. Had injections in the past to treat it. Desires anesthesia consult prior to delivery. TKRN Head injury 04/15/2012 12/31/2018 documented as of this encounter (statuses as of 12/16/2022) [facility] Annual physical exam- Primary Routine general medical examination at a health care facility Fatigue, unspecified type Chronic mixed headache syndrome Other headache syndromes Chronic back pain, unspecified back location, unspecified back pain laterality [facility] [place] [facility] Diagnosis Sore throat- Primary Acute pharyngitis At increased risk of exposure to COVID-19 virus documented [facility] [place] [facility]* Diagnosis Sore throat- Primary Acute pharyngitis documented in this encounter [facility] note* Diagnosis Right wrist pain- Primary Pain in joint, forearm [facility] [place] [facility]* Diagnosis Rash and other nonspecific skin eruption- Primary [facility] Diagnosis Screening examination for pulmonary tuberculosis- Primary [facility] [place] [facility] Diagnosis Screening examination for pulmonary tuberculosis- Primary [facility] [place] [facility]* Diagnosis Screening examination for pulmonary tuberculosis- Primary [facility] [place] [facility]* Diagnosis Chronic bilateral low back pain with sciatica, sciatica laterality unspecified- Primary Other migraine without status migrainosus, not intractable Overweight documented in this encounter [facility] note* Diagnosis Need for vaccination- Primary Need for prophylactic vaccination and inoculation against unspecified single disease [facility] [place] [facility]* Diagnosis Gynecologic exam normal- Primary Special screening examination for human papillomavirus (HPV) Screening for cervical cancer Screening for malignant neoplasm of the cervix documented in this encounter [facility] note* Diagnosis Acute pancreatitis, unspecified complication status, unspecified pancreatitis type- Primary Pelvic pain in female Unspecified symptom associated with female genital organs Routine medical exam Routine general medical examination at a health care facility documented in this encounter [facility] note* Diagnosis Abdominal pain in female- Primary Free fluid in pelvis Oral contraceptive pill surveillance Surveillance of previously prescribed contraceptive pill Deep dyspareunia documented [facility] this [facility] [place] [facility]* Diagnosis Acute pancreatitis, unspecified complication status, unspecified pancreatitis type documented in this encounter [facility] for referral (narrative)* Diagnostic Procedure Only (Urgent) - Closed Specialty Diagnoses / Procedures Referred By Maricel dotson Referred To Contact XR IMAGING Diagnoses Right wrist pain Procedures XR WRIST GENERAL 3V PA/LAT/OBL RIGHT RADEX WRIST COMPLETE MINIMUM 3 VIEWS Veronica Tanner APRN.SUPERVISOR CELL ROOM [address] [place] [address] Xr Imaging Referral ID Status Reason Start Date Expiration Date V isits Requested Visits Authorized [id number] Closed Auto-Generate d Referral 12/21/2021 01/20/[address] [facility] for referral (narrative)* Diagnostic Procedure Only (Routine) - Pending Review Specialty Diagnoses / Procedures Referred By Contac t Referred To Contact US IMAGING Diagnoses Acute pancreatitis, unspecified complication status, unspecified pancreatitis type Procedures US ABD RIGHT UPPER QUADRANT US ABDOMINAL REAL TIME W/IMAGE LIMITED Jennifer Mistry APRN.[employer] [address] [place] [address] Us Imaging Referral ID Status Reason Start Date Expiration Date Visits Requested Visits Authorized [id number] Pending Review Auto-Generat ed Referral 08/06/2022 09/05/2023 1 1 * Diagnostic Procedure Only (Routine) - Pending Review Specialty Diagnoses / Procedures Referred By Contac t Referred To Contact US IMAGING Diagnoses Pelvic pain in female Procedures US FEMALE PELVIS TRANSVAG US TRANSVAGINAL Jennifer Mistry APRN.[employer] [address] [place] [address] Us Imaging Referral ID Status Reason Start Date Expiration Date Visits Requested Visits Authorized [id number] Pending Review Auto-Generat ed Referral 08/06/2022 09/05/[address] [facility] for referral (narrative)* Diagnostic Procedure Only (Routine) - Closed Specialty Diagnoses / Procedures Referred By Contac t Referred To Contact US IMAGING Diagnoses Acute pancreatitis, unspecified complication status, unspecified pancreatitis type Procedures US ABD RIGHT UPPER QUADRANT US ABDOMINAL REAL TIME W/IMAGE LIMITED Jennifer Mistry APRN.[employer] [address] [place] [address] [place] [address] Referral ID Status Reason Start Date Expiration Date V isits Requested Visits Authorized [id number] Closed Auto-Generate d Referral 08/06/2022 09/05/2023 1 1 [facility] Diagnostic Procedure Only (Routine) - Closed Specialty Diagnoses / Procedures Referred By Contac t Referred To Contact US IMAGING Diagnoses Acute pancreatitis, unspecified complication status, unspecified pancreatitis type Procedures US ABD RIGHT UPPER QUADRANT US ABDOMINAL REAL TIME W/IMAGE LIMITED Jennifer Mistry APRN.[employer] [address] [facility] [place] [address] [place] [address] Referral ID Status Reason Start Date Expiration Date V isits Requested Visits Authorized [id number] Closed Auto-Generate d Referral 08/06/2022 09/05/2023 1 1 [facility] Summary Purpose Family History No Family History Records FoundNo Family History Records FoundNo Family History Records Found Advance Directives No Advanced Directives Records FoundNo Advanced Directives Records FoundNo Advanced Directives Records Found Health Concerns Infection Onset Date Last Indicated Resolved Time COVID-19 Rule-Out 11/27/2021 11/27/2021 Medications Administered Section Administered Medications Medication Order MAR Action Action Date Dose Rate Site PPD ([place]) Intradermal Given 03/12/2022 14:58 EST 0.1 mL Left arm Additional Source Comments INFORMATION SOURCE (unrecogn ized section and content) DATE CREATED AUTHOR AUTHOR'S ORGANIZ ATION 01/18/2018 [facility] [employer] DATE CREATED AUTHOR AUTHOR'S ORGANIZ ATION 08/25/2022 [facility] Source Comments (unrecognize d section and content) In the event this informatio n is protected by the Federal Confidentiality of Alcohol and Drug Abuse Patient Records regulations: The Federal rules restrict any use of the information to criminally investigate or prosecute any alcohol or drug abuse patient.[facility] the event this information is protected by the Federal Confidentiality of Alcohol and Drug Abuse Patient Records regulations: The Federal rules restrict any use of the information to criminally investigate or prosecute any alcohol or drug abuse patient.[facility] the event this information is protected by the Federal Confidentiality of Alcohol and Drug Abuse Patient Records regulations: The Federal rules restrict any use of the information to criminally investigate or prosecute any alcohol or drug abuse patient.[facility] the event this information is protected by the Federal Confidentiality of Alcohol and Drug Abuse Patient Records regulations: The Federal rules restrict any use of the information to criminally investigate or prosecute any alcohol or drug abuse patient.[facility] the event this information is protected by the Federal Confidentiality of Alcohol and Drug Abuse Patient Records regulations: The Federal rules restrict any use of the information to criminally investigate or prosecute any alcohol or drug abuse patient.[facility] the event this information is protected by the Federal Confidentiality of Alcohol and Drug Abuse Patient Records regulations: The Federal rules restrict any use of the information to criminally investigate or prosecute any alcohol or drug abuse patient.[facility] the event this information is protected by the Federal Confidentiality of Alcohol and Drug Abuse Patient Records regulations: The Federal rules restrict any use of the information to criminally investigate or prosecute any alcohol or drug abuse patient.[facility] the event this information is protected by the Federal Confidentiality of Alcohol and Drug Abuse Patient Records regulations: The Federal rules restrict any use of the information to criminally investigate or prosecute any alcohol or drug abuse patient.[facility] the event this information is protected by the Federal Confidentiality of Alcohol and Drug Abuse Patient Records regulations: The Federal rules restrict any use of the information to criminally investigate or prosecute any alcohol or drug abuse patient.[facility] the event this information is protected by the Federal Confidentiality of Alcohol and Drug Abuse Patient Records regulations: The Federal rules restrict any use of the information to criminally investigate or prosecute any alcohol or drug abuse patient.[facility] the event this information is protected by the Federal Confidentiality of Alcohol and Drug Abuse Patient Records regulations: The Federal rules restrict any use of the information to criminally investigate or prosecute any alcohol or drug abuse patient.[facility] the event this information is protected by the Federal Confidentiality of Alcohol and Drug Abuse Patient Records regulations: The Federal rules restrict any use of the information to criminally investigate or prosecute any alcohol or drug abuse patient.[facility] the event this information is protected by the Federal Confidentiality of Alcohol and Drug Abuse Patient Records regulations: The Federal rules restrict any use of the information to criminally investigate or prosecute any alcohol or drug abuse patient.[facility] the event this information is protected by the Federal Confidentiality of Alcohol and Drug Abuse Patient Records regulations: The Federal rules restrict any use of the information to criminally investigate or prosecute any alcohol or drug abuse patient.[facility] the event this information is protected by the Federal Confidentiality of Alcohol and Drug Abuse Patient Records regulations: The Federal rules restrict any use of the information to criminally investigate or prosecute any alcohol or drug abuse patient.[facility] the event this information is protected by the Federal Confidentiality of Alcohol and Drug Abuse Patient Records regulations: The Federal rules restrict any use of the information to criminally investigate or prosecute any alcohol or drug abuse patient.[facility] Center[facility] the event this information is protected by the Federal Confidentiality of Alcohol and Drug Abuse Patient Records regulations: The Federal rules restrict any use of the information to criminally investigate or prosecute any alcohol or drug abuse patient.[facility] the event this information is protected by the Federal Confidentiality of Alcohol and Drug Abuse Patient Records regulations: The Federal rules restrict any use of the information to criminally investigate or prosecute any alcohol or drug abuse patient.[facility] Reason for Visit (unrecogniz ed section and content) Reason Comments Physical Reason Comments Nasal Congestion Sore throat, LOPEZ x 1 day Reason Comments Head Congestion right ear pain and s ore throat x 3 days Reason Comments right wrist pain X 3 days-started aft er lifting something Reason Comments Rash Rash on abdomen x 3 weeks Reason Comments Orders Reason Onset Date Comments Refill Request 02/27/2022 Reason Comments PPD Read Reason Comments Physical forms for nurse aide training Reason Comments Imm/Inj Reason Comments Well Woman Reason Onset Date Comments Refill Request Refill Request 05/28/2022 Reason Comments Physical Reason Comments Follow Up Care Teams (unrecognized sec tion and content) Airborne Operations Manager Relationship Specialty Start Date End Date Leti Gomez MD [address] [place], [place] [id number] PCP - General Internal Medicine 02/01/21 Airborne Operations Manager Relationship Specialty Start Date End Date Leti Gomez MD [address] [place], [place] [id number] PCP - General Internal Medicine 02/01/21 Airborne Operations Manager Relationship Specialty Start Date End Date Leti Gomez MD [address] [place], [place] [id number] PCP - General Internal Medicine 02/01/21 Airborne Operations Manager Relationship Specialty Start Date End Date Leti Gomez MD [address] [place] [place] [address] PCP - General Internal Medicine 02/01/21 Airborne Operations Manager Relationship Specialty Start Date End Date Leti Gomez MD [address] [place] [place] [address] PCP - General Internal Medicine 02/01/21 Airborne Operations Manager Relationship Specialty Start Date End Date Leti Gomez MD [address] [place] [place] [address] PCP - General Internal Medicine 02/01/21 Airborne Operations Manager Relationship Specialty Start Date End Date Leti Gomez MD [address] [place] [place] [address] PCP - General Internal Medicine 02/01/21 Airborne Operations Manager Relationship Specialty Start Date End Date Leti Gomez MD [address] [place] [place] [address] PCP - General Internal Medicine 02/01/21 Airborne Operations Manager Relationship Specialty Start Date End Date Leti Gomez MD [address] [place] [place] [address] PCP - General Internal Medicine 02/01/21 Airborne Operations Manager Relationship Specialty Start Date End Date Leti Gomez MD [address] [place] [place] [address] PCP - General Internal Medicine 02/01/21 Airborne Operations Manager Relationship Specialty Start Date End Date Leti Gomez MD [address] [place] [place] [address] PCP - General Internal Medicine 02/01/21 Airborne Operations Manager Relationship Specialty Start Date End Date Leti Gomez MD [address] [place] [place] [address] PCP - General Internal Medicine 02/01/21 FOR RECORDS PERTAINING TO PATIENTS WHO ARE OR HAVE BEEN ENROLLED IN A CHEMICAL DEPENDENCY/SUBSTANCEABUSE PROGRAM, SOME INFORMATION MAY BE OMITTED. This clinical summary was aggregated from multiple sources. Caution should be exercised in using it in the provision of clinical care. This summary normalizes information from multiple sources, and as a consequence, information in this document may materially change the coding, format and clinical context of patient data. In addition, data may be omitted in some cases. CLINICAL DECISIONS SHOULD BE BASED ON THE PRIMARY CLINICAL RECORDS. [facility]. provides no warranty or guarantee of the accuracy or completeness of information in this document.
--- NOTE | 2023-02-16 08:13 | MRI_ITS ---
STUDY: MRI LUMBAR SPINE WITHOUT CONTRAST REASON FOR EXAM: Female, 27 years old. pain TECHNIQUE: Standardized fat and water weighted pulse sequences were obtained in the sagittal and axial planes. COMPARISON: None FINDINGS: T12-L1: Normal endplates. Normal disc height, hydration and morphology. Normal bilateral facet joints. Normal central canal and bilateral lateral recesses. Normal bilateral intervertebral neural foramina. Normal lumbar lordosis. There is no substantial scoliosis. Normal conus medullaris that terminates at the T12/L1. L1-2: Normal endplates. Normal disc height, hydration and morphology. Normal bilateral facet joints. Normal central canal and bilateral lateral recesses. Normal bilateral intervertebral neural foramina. L2-3: Normal endplates. Normal disc height, hydration and morphology. Normal bilateral facet joints. Normal central canal and bilateral lateral recesses. Normal bilateral intervertebral neural foramina. L3-4: Normal endplates. Normal disc height, hydration and morphology. Normal bilateral facet joints. Normal central canal and bilateral lateral recesses. Normal bilateral intervertebral neural foramina. L4-5: Moderate sized central disc protrusion produces moderate spinal stenosis with moderate bilateral lateral recess stenosis with abutment of the L5 nerve roots bilaterally and mild bilateral neural foraminal stenosis. L5-S1: Normal endplates. Normal disc height, hydration and morphology. Normal bilateral facet joints. Normal central canal and bilateral lateral recesses. Normal bilateral intervertebral neural foramina. Normal visualized sacral ala. Normal visualized paraspinous soft tissue structures. MRI/Spine Lumbar (Routine) IMPRESSION: Focal degenerative disc disease at L4/L5 as described above. Electronically Signed: Gerardo Hoskins MD at 22:28 EST ,
== END | disposition home or self-care (01) ==
LOC: MRI 08:00
PROVIDERS: Referring Provider Orthopaedic Surgery; Visit Provider Orthopaedic Surgery
DX: M43.06 Spondylolysis, lumbar region (principal); M51.26 Other intervertebral disc displacement, lumbar region
CPT/HCPCS: 72148

== ENCOUNTER 2023-07-21 17:14 | Emergency (ER) | payer MEDICAID, SELFPAY ==
[2023-07-21 17:15] VITALS: BP 118/76; PULSE 95; RESP 16; TEMP 36.7; O2SAT 100; BMI 26.5
[2023-07-21] MEDS: Meclizine HCl 25 MG Tablet PO (18:32)
[2023-07-21 19:47] VITALS: BP 106/61; PULSE 88; RESP 16; TEMP 36.8; O2SAT 99
--- NOTE | 2023-07-21 20:01 | EDS_ITS ---
HPI History of Present Illness Chief Complaint: Nausea/Vomiting Narrative Narrative: Patient is 28-year-old female presenting with dizziness and nausea and vomiting. States it feels like the room spinning. It is worse when she changes position or moves her head. She states that every year she gets similar symptoms around this time of year however it is never been this bad and she is never had it evaluated. She not take any medications prior to arrival. Denies any associated numbness or tingling. No report of any speech changes. No vision changes reported. Has had some mild nasal congestion associate with this. No other complaints or concerns reported at this time. [facility] Medical History Pars defect of lumbar spine Hx of concussion Anxiety Palpitations Tachycardia Ovarian cyst Chronic back pain Home Medications ?Medication ?Instructions ?Recorded ?Last Taken ?Type duloxetine 30 mg capsule,delayed 30 mg PO DAILY 06/25/23 Unknown History release meclizine 25 mg tablet 25 mg PO 4X/DAY PRN PRN Dizziness 07/21/23 Unknown Rx #20 tabs ondansetron 4 mg disintegrating 4 mg PO Q6H PRN nausea and 07/21/23 Unknown Rx tablet vomiting #10 tabs Allergy/AdvReac Type Severity Reaction Status Date / Time pumpkin Allergy Hives Verified 07/21/23 17:28 Family History Mother Endometriosis Surgical History History of removal of ovarian cyst Hx of appendectomy Social History Smoking Status: Never smoker ROS ROS ED Constitutional Constitutional ED: Denies chills or fever(s) Eyes Eyes: Denies blurry vision or change in vision ENT ENT ED: Reports other Details: nasal congestion ; Denies ear pain or rhinorrhea Cardiovascular Cardiovascular: Denies chest pain or palpitations Respiratory/Chest Respiratory/Chest: Denies cough Gastrointestinal Gastrointestinal: Reports nausea and vomiting; Denies abdominal pain Neurologic Neurologic: Denies headache(s), paresthesias or weakness Hematologic/Lymphatic Hematologic/Lymphatic: Denies easy bleeding EXAM Physical Exam Const Vital Signs: 07/21/23 17:15 07/21/23 19:47 Temperature 98.1 F 98.3 F Temperature Source Temporal Pulse Rate 95 88 Respiratory Rate 16 16 Blood Pressure 118/76 106/61 Blood Pressure Mean 90 76 Pulse Ox 100 99 Oxygen Delivery Method Room Air Positive well nourished and well developed General Appearance ED: well developed and NAD HEENT Reports TM's clear and moist mucous membranes Tympanic Membrane ED: Yes TM's clear Eyes PERRL and EOMs intact bilaterally Eyes Narrative: No reproducible nystagmus on exam. Negative [place]-Hallpike maneuver bilateral Neck supple Chest Wall inspection of chest normal and palpation of chest normal Resp normal respiratory effort Extremity normal to inspection Neuro oriented x3, CN's II-XII intact bilaterally and no sensory deficits noted Neuro Narrative: Normal [id number], no truncal ataxia, normal coordination Sensorium / Orientation: alert Motor Exam: strength 5/5 throughout; Negative for general weakness Psych mental status grossly normal Skin no rashes or lesions noted and no wounds MDM MDM MDM Narrative Medical decision making narrative: Patient evaluated for dizziness with subsequent nausea and vomiting. HPI highly consistent with vertigo. Patient has a normal neurologic exam and I do not suspect a central process. Patient is a negative [place]-Hallpike maneuver her symptoms are quite mild at this time. By nursing protocol she was given a liter of IV fluid in the ER. Patient is feeling better. She is given dose of meclizine and able to tolerate. To be discharged home with a prescription for meclizine as well as Zofran. She is given a referral for ENT given this happens every year. I also discussed taking a daily Zyrtec until with her congestion which might be an underlying trigger. She verbalized good understand this plan. She is able to pass p.o. challenge in the ER. Discharged home in stable condition. Differential diagnosis?peripheral vertigo, central vertigo, hypovolemia Testing considered but not performed?CT of the brain?patient has normal neurologic exam and physical exam and HPI more consistent with peripheral vertigo, I do not think CT imaging is indicated. Discharge Plan Triage Chief Complaint: Nausea/Vomiting ED Provider: Carissa Rojas Dx/Rx/DC Orders Clinical Impression: Episodic peripheral vertigo Instructions: ED BPV Vertigo Prescriptions: New meclizine 25 mg tablet 25 mg PO 4X/DAY PRN PRN (Reason: Dizziness) Qty: 20 0RF ondansetron 4 mg tablet,disintegrating 4 mg PO Q6H PRN (Reason: nausea and vomiting) Qty: 10 0RF No Action duloxetine 30 mg capsule,delayed release(DR/EC) 30 mg PO DAILY Primary Care Provider: Leti Gomez Referrals: Leti Gomez MD [Primary Care Provider] - Tyler Quiroz MD [Med Staff - Active Staff] - 1-2 Days if not improving Activity Restrictions/Additional Instructions: Please also take a daily Zyrtec for the next week this is should help with the congestion and hopefully her symptoms. Drink plenty fluids. Print Language: Vietnamese Disposition Disposition: Home, Self Care
== END 2023-07-21 20:07 | disposition home or self-care (01) ==
PROVIDERS: Emergency Provider Emergency Medicine; PCP Internal Medicine; Visit Provider Emergency Medicine
DX: H81.399 Other peripheral vertigo, unspecified ear (principal); R11.2 Nausea with vomiting, unspecified; R09.81 Nasal congestion; M54.9 Dorsalgia, unspecified; G89.29 Other chronic pain; Z79.899 Other long term (current) drug therapy
CPT/HCPCS: 99283; J7030; A4216

== ENCOUNTER → 2023-08-30 | Outpatient (CLI) | payer MEDICAID, SELFPAY | END | disposition home or self-care (01) | LOC: PSN 07:47 | PROVIDERS: PCP Internal Medicine; Referring Provider Internal Medicine Cardiovascular Disease; Visit Provider Internal Medicine Cardiovascular Disease | DX: R00.2 Palpitations (principal) | CPT/HCPCS: 93225; 93226 ==

== ENCOUNTER → 2023-09-18 | Outpatient (CLI) | payer MEDICAID, SELFPAY ==
--- NOTE | 2023-09-18 13:09 | ECHOD_ITS ---
Reason For Study: PALPITATIONS Procedure This was a 2D Doppler, Color Flow transthoracic echocardiogram. Exam performed in department. Left Ventricle Normal LV size. Left ventricular systolic function is normal. The left ventricular ejection fraction is 60 %. No regional wall motion abnormalities noted. Right Ventricle Normal RV size. Normal systolic function. Atria Normal left atrium. Normal right atrium. Mitral Valve Normal mitral valve. Tricuspid Valve Normal tricuspid valve. Aortic Valve Normal aortic valve. Trisinus/trileaflet aortic valve. Pulmonic Valve Normal pulmonic valve. Great Vessels Normal aortic root. The pulmonary artery is normal size. Normal inferior vena cava. Pericardium/Pleural No pericardial effusion. MMode/2D Measurements & Calculations LVIDd: 4.4 cm IVSd: 0.86 cm LVOT diam: 1.8 cm LVIDs: 2.3 cm LVPWd: 0.76 cm LVOT area: 2.7 cm2 RVDd: 3.6 cm FS: 46.9 % Ao root diam: 2.5 cm LAV(MOD-bp): 42.4 ml LVAd ap4: 24.7 cm2 LAV(MOD-bp) Indexed: 24.8 ml/m2 LVLd ap4: 7.8 cm LAV(MOD-sp2): 35.5 ml EDV(MOD-sp4): 65.3 ml LAV(MOD-sp4): 45.4 ml EDV(sp4-el): 66.6 ml LVAs ap4: 11.0 cm2 LVLs ap4: 6.1 cm ESV(MOD-sp4): 18.2 ml ESV(sp4-el): 16.7 ml EF(MOD-sp4): 72.2 % EF(sp4-el): 75.0 % LVAd ap2: 27.4 cm2 SV(MOD-sp4): 47.1 ml SV(MOD-sp2): 57.5 ml LVLd ap2: 8.0 cm EDV(MOD-sp2): 76.6 ml EDV(sp2-el): 79.1 ml LVAs ap2: 11.4 cm2 LVLs ap2: 6.0 cm ESV(MOD-sp2): 19.1 ml ESV(sp2-el): 18.3 ml EF(MOD-sp2): 75.1 % SV(sp4-el): 49.9 ml LA dimension(2D): 3.0 cm LA A4 area: 17.1 cm2 RA A4 area: 13.4 cm2 TAPSE: 2.5 cm Time Measurements MV dec time: 0.17 sec Doppler Measurements & Calculations MV E max douglas: 105.5 cm/sec Lat Peak E' Douglas: 19.6 cm/sec Med Peak E' Douglas: 15.9 cm/sec MV A max douglas: 42.7 cm/sec E/E' lat: 5.4 E/E' med: 6.6 MV E/A: 2.5 Ao V2 max: 158.5 cm/sec LV V1 max: 140.1 cm/sec MV dec slope: 635.2 cm/sec2 Ao max P.0 mmHg LV V1 max P.8 mmHg Ao V2 mean: 114.7 cm/sec LV V1 mean P.3 mmHg Ao mean P.8 mmHg LV V1 mean: 97.4 cm/sec Ao V2 VTI: 32.4 cm LV V1 VTI: 28.9 cm AV (velocity ratio): 0.89 MARY(I,D): 2.4 cm2 MARY(V,D): 2.4 cm2 SV(LVOT): 77.0 ml PA V2 max: 104.3 cm/sec TR max douglas: 226.0 cm/sec PA max PG (full): 1.3 mmHg TR max P.4 mmHg ECHO/Echo Complete Interpretation Summary Normal LV size. Left ventricular systolic function is normal. The left ventricular ejection fraction is 60 %. Structurally normal valves. Ordering Physician: Carlo Mao Referring Physician: Carlo Mao MD Performed By: Hellen Lala RDCS
== END | disposition home or self-care (01) ==
LOC: CVS 13:09
PROVIDERS: PCP Internal Medicine; Referring Provider Internal Medicine Cardiovascular Disease; Visit Provider Internal Medicine Cardiovascular Disease
DX: R00.2 Palpitations (principal)
CPT/HCPCS: 93306

== ENCOUNTER 2024-10-01 05:33 | Inpatient (IN) | payer MEDICAID, SELFPAY ==
[2024-10-01] VITALS (67 sets, daily range): BP systolic 85–136; BP diastolic 43–86; PULSE 51–117; RESP 16–20; TEMP 36.3–37.1; O2SAT 91–100; BMI 33.5
--- OUTSIDE RECORDS SUMMARY | 2024-10-01 05:33 | XMS RPT_ITS | CCD ---
Author Organization [facility] Team Providers Care Emergency Nurse Name Role Phone GATITO, GAMAL S Unavailable Unavailable KNAPIC, GAMAL S Unavailable Unavailable KNAPIC, GAMAL S Unavailable Unavailable JAENE SEGOVIA Unavailable Unavailable PROVIDER, UNKNOWN Unavailable Unavailable MIRANDAOZZIE Gerard Unavailable Unavailable MIRANDA, OZZIE C Unavailable Unavailable MIRANDA OZZIE C Unavailable Unavailable NO, DOCTOR ON Unavailable Unavailable NO, DOCTOR ON Unavailable Unavailable PROVIDER, UNKNOWN Unavailable Unavailable No, PCP Unavailable Unavailable Franco Sharma Unavailable Unavailable Sera Scott MD Primary Care Provider Sera Scott MD Primary Care Provider Sera Scott MD Primary Care Provider Sera Scott MD Primary Care Provider Dr. Sera Scott Primary Care Provider Dr. Sera Scott Referring Provider Dr. Bert Almanza Attending Provider Dr. Carlo Mao Attending Provider Care Physician, No Primary Primary Care Provider Unavailable Care Physician, No Primary Referring Provider Un available Sera Scott MD Primary Care Provider LESLEY ALVA Referring Unavailable SERA SCOTT Primary Care Unavailable Care Physician, No Primary Primary Care Unava ilable Bert Almanza Attending Unavailable Care Physician, No Primary Referring Unava ilable Sera Scott Primary Care Unavailable Carlo Mao Attending Unavailable Jason, Sera Primary Care Unavailable Gopalta, Sera Referring Unavailable Bert Almanza Attending Unavailable Jason, Sera Primary Care Unavailable Jason, Sera Referring Unavailable Carlo Mao Attending Unavailable Care Physician, No Primary Primary Care Unava ilable Bert Almanza Attending Unavailable Bert Almanza Referring Unavailable Ganta, Sera Primary Care Unavailable Carissa Rojas Attending Unavailable Daylin, [place] Referring Unavailable Daylin, [place] Attending Unavailable Ganta, Sera Primary Care Unavailable Ganta, Sera Primary Care Unavailable Daylin, Carlo Referring Unavailable Daylin, [place] Attending Unavailable Daylin, [place] Attending Unavailable Care Physician, No Primary Primary Care Unava ilable Daylin, [place] Attending Unavailable Ganta, Sera Primary Care Unavailable Daylin, Carlo Referring Unavailable Daylin, Carlo Attending Unavailable Ganta, Sera Primary Care Unavailable Ganta, Sera Primary Care Unavailable Eleazar SHOULDER BONER, Giselle Attending Unavailable Denbow PA-C, Carmella L Unavailable [phone] Older VP PATIENT.SKIRT PANEL ASSEMBLER, Sarah Unavailable [phone] Agata PA-C, Felisa Unavailable Denbow PA-C, Carmella L Unavailable [phone] Bogner PA-C, Felisa Unavailable [phone] GANTA, SERA Primary Care Unavailable GUALLPA, CHRISTIANE Referring Unavailable GANTA, SERA Primary Care Unavailable GUALLPA, CHRISTIANE Referring Unavailable NAZANIN BECKWITH Attending Unavailable GANTA, SERA Primary Care Unavailable NEYHART CALLIE MELISSA Attending Unavail able GANTA, SERA Primary Care Unavailable GUALLPA, CHRISTIANE Referring Unavailable GANTA, SERA Primary Care Unavailable NEYHART LEDESMA, MELISSA Attending Unavail able GANTA, SERA Primary Care Unavailable NEYHART LEDESMA, MELISSA Referring Unavail able GANTA, SERA Primary Care Unavailable SREEDHAR SHIELDS Attending Unavailable GANTA, SERA Primary Care Unavailable RUBIN DAVILA Attending Unavailable GANTA, SERA Primary Care Unavailable GUALLPA, CHRISTIANE Referring Unavailable GANTA, SERA Primary Care Unavailable GUALLPA, CHRISTIANE Referring Unavailable NEYHART LEDESMA, MELISSA Attending Unavail able GANTA, SERA Primary Care Unavailable NEYHART LEDESMA MELISSA Attending Unavail able GANTA, SERA Primary Care Unavailable NEYHART LEDESMA MELISSA Attending Unavail able GANTA, SERA Primary Care Unavailable NEYHART LEDESMA, MELISSA Referring Unavail able GANTA, SERA Primary Care Unavailable NEYHART LEDESMA, MELISSA Attending Unavail able [facility], [facility] Primary Care Unavailable MELISSA SANDERSON Attending Unavail able [facility], [facility] Primary Care Unavailable MELISSA SANDERSON Attending Unavail able [facility], [facility] Primary Care Unavailable BRAYAN RUBIN Referring Unavailable [facility], SERA Primary Care Unavailable CHRISTIANE GUALLPA Attending Unavailable [facility], SERA Primary Care Unavailable CHRISTIANE GUALLPA Referring Unavailable [facility], [facility] Primary Care Unavailable MELISSA SANDERSON Attending Unavail able Allergies Allergy Classification Reported Allergen(s) Allergy Type Date of Onset Reaction(s) Facility (4 sources) pumpkin allergenic extract; Translations: [PUMPKIN] Drug Allergy 07-25-2022 [facility] (20 sources) Pumpkin seed extract Drug Allergy 03-08-2023 Itching [facility] (1 source) pumpkin allergenic extract Drug Allergy 08-28-2023 [facility] Repository Medications Current Medications Medication Drug Class(es) Dates Sig (Normalized) Sig (Original) Administered Medications Medication Order MAR Action Action Date Dose Rate Site tuberculin skin test (TST-PPD), purified protein derivative, intradermal Intradermal Given 09/02/2023 15:27 EDT 0.1 mL Left arm (1 source) Administered Medications Medication Order MAR Action Action Date Dose Rate Site tuberculin skin test (TST-PPD), purified protein derivative, intradermal Intradermal Given 09/02/2023 15:27 EDT 0.1 mL Left arm amoxicillin 500 mg oral tablet (1 source) Penicillin-class Antibacterial Start: 11-28-2021 End: 12-08-2021 take 1 tablet by mouth twice daily Amoxicillin 500 mg tablet Take 1 tablet by mouth twice daily for 10 days. 20 tablet 0 11/28/2021 12/08/2021 Active Comment on above: Take 1 tablet by franny th twice daily for 10 days. aspirin 81 mg delayed release oral tablet (20 sources) Platelet Aggregation Inhibitor, Nonsteroidal Anti-inflammatory Drug Start: 03-02-2024 End: 06-24-2024 take 1 tablet by mouth once daily aspirin, enteric coated (ECOTRIN LOW STRENGTH) 81 mg EC tablet Take 1 tablet by mouth once daily. 90 tablet 3 06/24/2024 Active azelaic acid 0.15 mg/mg topical gel (15 sources) Start: 02-17-2024 Azelaic Acid 15 % gel APPLY TO THE FACE TWICE A DAY 02/17/2024 Active ferrous sulfate 325 mg oral tablet (6 sources) ferrous sulfate 325 mg (65 mg iron) tablet Take 325 mg by mouth. Active fluticasone propionate 0.05 mg/actuat metered dose nasal spray (2 sources) Corticosteroid Start: 03-25-2020 End: 09-11-2021 take 2 spray(s) by mouth once daily fluticasone (FLONASE) 50 mcg/actuation nasal spray Indications: Acute ear pain, left Use 2 Sprays in each nostril once daily. Rinse mouth after use. 1 Bottle 11 03/25/2020 09/11/2021 Discontinued (Discontinued by Patient) Comment on above: Use 2 Sprays in each nostril once daily. Rinse mouth after use. hydrOXYzine hydrochloride 25 mg oral tablet (11 sources) Antihistamine Start: 02-21-2022 End: 08-06-2022 take 1 tablet by mouth every six hours as needed hydrOXYzine HCl (ATARAX) 25 mg tablet Take 1 tablet by mouth every 6 hours as needed for itching/rash. 15 tablet 0 02/21/2022 08/06/2022 Discontinued Comment on above: Take 1 tablet by franny every 6 hours as needed for itching/rash. lidocaine 0.05 mg/mg medicated patch (20 sources) Antiarrhythmic, Amide Local Anesthetic Start: 05-19-2024 lidocaine (LIDODERM) 5 % apply 1 patch topically to affected areas for 12 hours on and 12 hours off as needed 05/19/2024 Active Start: 11-28-2021 End: 08-06-2022 LIDOCAINE VISCOUS 2 % soluti on Take 15 mL by mouth as needed. 100 mL 0 11/28/2021 08/06/2022 Discontinued Comment on above: Take 15 mL by mouth as needed. meloxicam 7.5 mg oral tablet (1 source) Nonsteroidal Anti-inflammatory Drug Start: take 7.5 mg by mouth once daily Meloxicam Active 7.5 MG PO DAILY January 10, 2023 12:00am PNV#24/iron aa aky/folic acid (COMPLETE ORAL) (20 sources) PNV#24/iron aa kay/folic acid (COMPLETE ORAL) Take 3 Pieces of gum by mouth once daily. Active predniSONE 20 mg oral tablet (1 source) Start: 2 End: 2 take 2 tablets by mouth once daily predniSONE (DELTASONE) 20 mg tablet Take 2 tablets by mouth once daily for 5 days. 10 tablet 0 11/28/2021 12/03/2021 Active Comment on above: Take 2 tablets by mo [facility] once daily for 5 days. Iqnqlmzd-Do-Xtw-Fe- FA ( VITAMIN) tab (2 sources) End: 2 take 1 tablet by mouth once Uaktpkch-Cc-Bkv-Fe-F A ( VITAMIN) tab Take 1 tablet by mouth. 0 09/11/2021 Discontinued (Discontinued by Patient) take 1 tablet by mouth once Pren atal Uacwnxff-Qj-Btb-Fe-FA ( VITAMIN) tab Take 1 tablet by mouth. 0 Active Comment on above: [facility] riz[facility]an 10 mg oral tablet (2 sources) Serotonin-1b and Serotonin-1d Receptor Agonist Start: 1 End: 2 rizatriptan (MAXALT) 10 mg tablet Indications: Chronic migraine without aura without status migrainosus, not intractable Take 1 pill at the start on migraine and repeat in 2 hours as needed 20 tablet 1 07/08/2020 09/11/2021 Discontinued (Discontinued by Patient) Comment on above: Take 1 pill at the s tart on migraine and repeat in 2 hours as needed topiramate 25 mg oral tablet (16 sources) Start: 2 End: 3 take 1 tablet by mouth twice daily, then take 1 tablet by mouth once daily, then take 2 tablets by mouth once daily topiramate (TOPAMAX) 25 mg tablet Take 1 tablet by mouth twice daily. Take 1 pill daily for a week and then take 2 pills daily to continue. 60 tablet 5 09/11/2021 08/06/2022 Discontinued Start: 05-01-2021 End: 09-11-2021 take 1 tablet by mouth once daily at bedtime, then take 1 tablet by mouth once daily, then take 2 tablets by mouth once daily topiramate (TOPAMAX) 25 mg tablet Take 1 tablet by mouth daily at bedtime. Take 1 pill daily for a week and then take 2 pills daily to continue. 60 tablet 3 05/01/2021 09/11/2021 Discontinued Comment on above: Take 1 tablet by franny th daily at bedtime. Take 1 pill daily for a week and then take 2 pills daily to continue. Take 1 tablet by franny th twice daily. Take 1 pill daily for a week and then take 2 pills daily to continue. triamcinolone acetonide 1 mg/ml topical cream (11 sources) Corticosteroid Start: 02-21-2022 End: 08-06-2022 triamcinolone acetonide (KENALOG) 0.1 % cream Apply 1 application to affected area twice daily. Apply sparingly to area for rash/itching for up to 2 weeks 15 g 1 02/21/2022 08/06/2022 Discontinued Comment on above: Apply 1 application to affected area twice daily. Apply sparingly to area for rash/itching for up to 2 weeks Completed/Discontinued Medications Medication Drug Class(es) Dates Sig (Normalized) Sig (Original) DULoxetine 30 mg delayed release oral capsule (11 sources) Serotonin and Norepinephrine Reuptake Inhibitor End: 03-02-2024 take 1 capsule by mouth once daily DULoxetine (CYMBALTA) 30 mg capsule Indications: Rapid heartbeat , Palpitations Take 30 mg by mouth once daily. 03/02/2024 Discontinued (Course of therapy completed) Ethinyl Estradiol / Norethindrone (20 sources) Estrogen Start: 08-24-2022 take 1 tablet by mouth once daily Norethindrone Acet-Ethinyl Est (,) 1.5-30 mg-mcg Take 1 tablet by mouth once daily. 63 tablet 5 08/24/2022 Active Start: 05-30-2022 End: 08-24-[address]-Eth[address] E st (,) 1.5-30 mg-mcg Take 1 tablet by mouth once daily. Take one active pill continuously x 3 months 84 tablet 3 05/30/2022 08/24/2022 Discontinued Start: 05-30-2022 Norethindrone Acet-Ethinyl Est (,) 1.5-30 mg-mcg Take 1 tablet by mouth once daily. Take one active pill continuously x 3 months 84 tablet 3 05/30/2022 Active Start: 04-25-2022 Norethindrone Acet-Ethinyl Est (, ,) 1.5-30 mg-mcg Take 1 tablet by mouth once daily. Take one active pill continuously x 3 months 84 tablet 3 04/25/2022 Active Start: 02-28-2022 End: 04-25-[address]-Eth[address] E [address] (, ,) 1.5-30 mg-mcg Take 1 tablet by mouth once daily. Take one active pill continuously x 3 months 84 tablet 0 02/28/2022 04/25/2022 Discontinued Start: 02-28-2022 Norethindrone Acet-Ethinyl Est (,) 1.5-30 mg-mcg Take 1 tablet by mouth once daily. Take one active pill continuously x 3 months 84 tablet 0 02/28/2022 Active Start: 02-21-2021 End: 02-27-[address]-Ethinyl E st (,) 1.5-30 mg-mcg Take 1 tablet by mouth once daily. Take one active pill continuously x 3 months 84 tablet 3 02/21/2021 02/27/2022 Discontinued Start: 02-21-2021 Norethindrone Acet-Ethinyl Est (, ,) 1.5-30 mg-mcg Take 1 tablet by mouth once daily. Take one active pill continuously x 3 months 84 tablet 3 02/21/2021 Active Start: 06-11-2019 End: 09-11-2021 take 1 tablet by mouth once daily, then take 0.05 tablet by mouth once Norethindrone Acet-Ethinyl Est (03/02, ,) 1-20 mg-mcg per tablet Take 1 tablet by mouth once daily. 1 Package 11 06/11/2019 09/11/2021 Discontinued (Duplicate Entry) Start: 06-11-2019 take 1 tablet by franny th once daily, then take 0.05 tablet by mouth once Norethindrone Acet-Ethinyl Est (JUNE,) 1-20 mg-mcg per tablet Take 1 tablet by mouth once daily. 1 Package 11 06/11/2019 Active Comment on above: Take 1 tablet by franny th once daily. Take 1 tablet by franny th once daily. Take one active pill continuously x 3 months meclizine hydrochloride 25 mg oral tablet (5 sources) Antiemetic Start: 07-21-2023 End: 03-02-2024 meclizine (ANTIVERT) 25 mg tab Take 25 mg by mouth as needed. 07/21/2023 03/02/2024 Discontinued (Course of therapy completed) Start: 07-15-2020 End: 09-11-2021 take 1 tablet by mouth three times daily as needed for dizziness meclizine (ANTIVERT) 12.5 mg tab Indications: vertigo Take 1 tablet by mouth three times daily as needed (dizziness). 45 tablet 1 07/15/2020 09/11/2021 Discontinued (Discontinued by Patient) Comment on above: Take 1 tablet by franny th three times daily as needed (dizziness). ondansetron 4 mg disintegrating oral tablet (3 sources) Serotonin-3 Receptor Antagonist Start: 07-21-19 End: 03-02-19 take 1 tablet by mouth every eight hours as needed ondansetron orally disintegrating (ZOFRAN ODT) 4 mg disintegrating tablet Take 4 mg by mouth every 8 hours as needed. 07/21/2023 03/02/2024 Discontinued (Course of therapy completed) Problems Active Problems Problem Classification Problem Date Documented Da te Episodic/Chronic Abdominal pain (7 sources) Flank pain; Translations: [Unspecified abdominal pain] Onset: 06-26-2023 07-25-2022 Episodic Anxiety disorders (2 sources) Generalized anxiety disorder; Translations: [Generalized anxiety disorder] 06-06-2023 Chronic Cardiac dysrhythmias (6 sources) Tachycardia; Translations: [Tachycardia, unspecified] Onset: 08-28-2023 06-06-2023 Episodic Contraceptive and procreative management (1 source) Oral contraception; Translations: [Encounter for surveillance of contraceptive pills] 08-24-2022 Episodic Diabetes mellitus without complication (10 sources) Abnormal glucose tolerance test; Translations: [Other abnormal glucose] Onset: 07-31-2024 07-31-2024 Episodic Diabetes or abnormal glucose tolerance complicating ; childbirth; or the puerperium (20 sources) Impaired glucose tolerance in ; Translations: [Abnormal glucose complicating ] Onset: 01-14-2019 Resolved: 03-24-2019 03-24-2019 Episodic Headache; including migraine (1 source) Migraine; Translations: [Other migraine, not intractable, without status migrainosus] Chronic Headache; including migraine (1 source) Chronic mixed headache syndrome; Translations: [Other headache syndrome] Episodic Immunizations and screening for infectious disease (11 sources) Tuberculosis screening status; Translations: [Encounter for screening for respiratory tuberculosis] Onset: 07-23-2024 Episodic Malaise and fatigue (1 source) Fatigue; Translations: [Other fatigue] Episodic Nausea and vomiting (4 sources) Nausea and vomiting; Translations: [Nausea with vomiting, unspecified] Onset: 06-26-2023 06-26-2023 Episodic Nonspecific chest pain (2 sources) Chest pain; Translations: [Chest pain, unspecified] 12-11-2018 Episodic Other complications of (5 sources) Anemia in mother complicating , childbirth AND/OR puerperium; Translations: [Anemia complicating , third trimester] 08-06-2024 Chronic Other complications of (1 source) Anemia complicating , third trimester; Translations: [Anemia complicating , third trimester (HCC)] Onset: 09-23-2024 Chronic Other complications of (2 sources) Uterine size for dates discrepancy; Translations: [Uterine size-date discrepancy, third trimester] 09-29-2024 Episodic Other complications of (1 source) Uterine size-date discrepancy, third trimester; Translations: [Uterine size-date discrepancy, third trimester (HCC)] Onset: 09-29-2024 Episodic Other connective tissue disease (2 sources) Pain in leg, unspecified; Translations: [Pain in leg, unspecified] Onset: 12-12-2017 Episodic Other connective tissue disease (1 source) Pain in right thumb; Translations: [Pain in right finger(s)] 06-06-2023 Episodic Other female genital disorders (1 source) Deep pain on intercourse; Translations: [Deep dyspareunia] 08-24-2022 Chronic Other female genital disorders (2 sources) Pain in female genitalia on intercourse; Translations: [Unspecified dyspareunia] 11-07-2023 Chronic Other female genital disorders (1 source) Unspecified dyspareunia; Translations: [Dyspareunia in female] Onset: 11-15-2023 Chronic Other gastrointestinal disorders (1 source) Finding of pelvis; Translations: [Other ascites] 08-24-2022 Episodic Other nervous system disorders (2 sources) Other chronic pain; Translations: [Other chronic pain] Onset: 12-12-2017 Chronic Other non-traumatic joint disorders (2 sources) Pain of right wrist; Translations: [Pain in right wrist] Episodic Other nutritional; endocrine; and metabolic disorders (1 source) Overweight; Translations: [Overweight] Episodic Other and delivery including normal (20 sources) ; Translations: [Encounter for supervision of normal , unspecified, unspecified trimester] Onset: 09-17-2018 Resolved: 03-24-2019 12-11-2018 Episodic Other skin disorders (1 source) Eruption; Translations: [Rash and other nonspecific skin eruption] Episodic Other upper respiratory infections (2 sources) Sore throat symptom; Translations: [Acute pharyngitis, unspecified] Episodic Pancreatic disorders (not diabetes) (2 sources) Acute pancreatitis; Translations: [Acute pancreatitis without necrosis or infection, unspecified] Episodic Residual codes; unclassified (1 source) Other specified personal risk factors, not elsewhere classified; Translations: [Other specified personal history presenting hazards to health] Episodic Residual codes; unclassified (2 sources) Gestation period, 12 weeks; Translations: [12 weeks gestation of ] 04-01-2024 Episodic Residual codes; unclassified (1 source) Gestation period, 16 weeks; Translations: [16 weeks gestation of ] 04-30-2024 Episodic Residual codes; unclassified (2 sources) Gestation period, 20 weeks; Translations: [20 weeks gestation of ] 05-26-2024 Episodic Residual codes; unclassified (1 source) Gestation period, 24 weeks; Translations: [24 weeks gestation of ] 06-24-2024 Episodic Residual codes; unclassified (1 source) Gestation period, 28 weeks; Translations: [28 weeks gestation of ] 07-23-2024 Episodic Residual codes; unclassified (1 source) Gestation period, 30 weeks; Translations: [30 weeks gestation of ] 08-06-2024 Episodic Residual codes; unclassified (1 source) Gestation period, 32 weeks; Translations: [32 weeks gestation of ] 08-19-2024 Episodic Residual codes; unclassified (1 source) Gestation period, 34 weeks; Translations: [34 weeks gestation of ] 09-02-2024 Episodic Residual codes; unclassified (1 source) Gestation period, 37 weeks; Translations: [37 weeks gestation of ] 09-23-2024 Episodic Residual codes; unclassified (2 sources) Gestation period, 38 weeks; Translations: [38 weeks gestation of ] 09-29-2024 Episodic Residual codes; unclassified (1 source) 38 weeks gestation of ; Translations: [38 weeks gestation of (HCC)] Onset: 09-29-2024 Episodic Residual codes; unclassified (1 source) 37 weeks gestation of ; Translations: [37 weeks gestation of (HCC)] Onset: 09-23-2024 Episodic Residual codes; unclassified (1 source) 36 weeks gestation of ; Translations: [36 weeks gestation of (HCC)] Onset: 09-16-2024 Episodic Residual codes; unclassified (1 source) 34 weeks gestation of ; Translations: [34 weeks gestation of (HCC)] Onset: 09-02-2024 Episodic Residual codes; unclassified (1 source) 32 weeks gestation of ; Translations: [32 weeks gestation of (HCC)] Onset: 08-19-2024 Episodic Residual codes; unclassified (1 source) 30 weeks gestation of ; Translations: [30 weeks gestation of (HCC)] Onset: 08-06-2024 Episodic Residual codes; unclassified (1 source) 28 weeks gestation of ; Translations: [28 weeks gestation of (HCC)] Onset: 07-23-2024 Episodic Spondylosis; intervertebral disc disorders; other back problems (4 sources) Prolapsed lumbar intervertebral disc; Translations: [Other intervertebral disc displacement, lumbar region] Onset: 02-19-2023 01-10-2023 Chronic Spondylosis; intervertebral disc disorders; other back problems (5 sources) Lumbago with sciatica, right side; Translations: [Chronic back pain ] Onset: 12-12-2017 Episodic Unclassified (1 source) Low back pain, unspecified; Translations: [Low back pain, unspecified] Onset: 01-10-2023 Unclassified (20 sources) [facility] - [facility] Onset: 03-02-2024 03-02-2024 Unclassified (20 sources) Education - [place] Onset: 03-02-2024 03-02-2024 Past or Other Problems Problem Classification Problem Date Documented Da te Episodic/Chronic Other acquired deformities (3 sources) Spondylolisthesis, lumbar region; Translations: [Spondylolisthesis, lumbar region] Onset: 09-18-2016 Episodic Other acquired deformities (20 sources) Spondylolysis; Translations: [Spondylolysis, lumbar region] Onset: 03-02-2024 01-10-2023 Episodic Other acquired deformities (3 sources) Spondylolysis, lumbar region; Translations: [Acquired spondylolisthesis] Onset: 02-19-2023 01-10-2023 Episodic Other acquired deformities (20 sources) Lumbar spondylolisthesis; Translations: [Spondylolisthesis, lumbar region] Onset: 12-31-2017 Resolved: 04-17-2019 04-17-2019 Episodic Other complications of (20 sources) H/O: previous delivery by vacuum extraction; Translations: [Supervision of with other poor reproductive or obstetric history, unspecified trimester] Onset: 03-02-2024 03-02-2024 Episodic Other complications of (20 sources) RhD negative; Translations: [Other specified related conditions, unspecified trimester] Onset: 03-02-2024 03-02-2024 Episodic Other complications of (2 sources) Supervision of with other poor reproductive or obstetric history, unspecified trimester; Translations: [History of delivery by vacuum extraction, currently ([facility])] Onset: 03-02-2024 Episodic Other complications of (1 source) Other specified related conditions, unspecified trimester; Translations: [Rh negative state in antepartum period (HCC)] Onset: 03-02-2024 Episodic Other injuries and conditions due to external causes (20 sources) Injury of head; Translations: [Unspecified injury of head, initial encounter] Onset: 04-15-2012 Resolved: 12-31-2018 12-31-2018 Episodic Other screening for suspected conditions (not mental disorders or infectious disease) (7 sources) Cancer cervix screening status; Translations: [Encounter for screening for malignant neoplasm of cervix] Onset: 03-31-2024 Episodic Residual codes; unclassified (1 source) Unspecified blood type, Rh negative; Translations: [Rh negative state in antepartum period (HCC)] Onset: 03-02-2024 Episodic Residual codes; unclassified (1 source) 24 weeks gestation of ; Translations: [24 weeks gestation of ([facility])] Onset: 06-24-2024 Episodic Residual codes; unclassified (1 source) 20 weeks gestation of ; Translations: [20 weeks gestation of ([facility])] Onset: 05-26-2024 Episodic Residual codes; unclassified (1 source) 16 weeks gestation of ; Translations: [16 weeks gestation of ] Onset: 04-30-2024 Episodic Residual codes; unclassified (1 source) 12 weeks gestation of ; Translations: [12 weeks gestation of ] Onset: 03-31-2024 Episodic Results Test Name Value Interpretation Reference Range Facility URINE OB DIP B/Oon 5 Glucose Ql (U) Negative Neg mg/dL [facility] Protein.monoclonal (U) [Mass/Vol] Negative Neg mg/dL [facility] ROUTINE, GROUP B ST REPTOCOCCUS BY PCRon 09-16-2024 ROUTINE, GROUP B STREPTOCOCCUS BY PCR Not detected Normal [facility] Comment on above: Performed By: #### G BPCR #### [facility] CLIA [id number] [address] [place] [address] [place] URINE OB DIP B/Oon 5 Glucose Ql (U) Negative Neg mg/dL [facility] Protein.monoclonal (U) [Mass/Vol] Negative Neg mg/dL [facility] GLUCOSE GESTATIONAL, 1 HOURo n 07-31-2024 Glucose 1 Hr post Unsp challenge [Mass/Vol] 157 mg/dL Normal 74-179 [facility] Comment on above: Order Comment: Speci men Type: BLOOD SPECIMENOrdering Facility: [facility] Address: [address] [place] [address] Result Comment: [facility] Congress of Obstetricians and Gynecologists (Yared/Casa) guidelines state gestational diabetes mellitus is present when 2 or more of the plasma glucose concentrations meet or exceed the following levels: fastin mg/dl, 1 hr: 180 mg/dl, 2 hr: 155 mg/dl, and 3 hr: 140 mg/dl. Performed By: #### G BPCR #### [facility] CLIA [id number] [address] [place] [address] [place] GLUCOSE GESTATIONAL, 2 HOURo n 07-31-2024 Glucose 2 Hr post Unsp challenge [Mass/Vol] 154 mg/dL Normal 74-154 [facility] Comment on above: Order Comment: Speci men Type: BLOOD SPECIMENOrdering Facility: [facility] Address: [address] [place] [address] Result Comment: [facility] of Obstetricians and Gynecologists (Yared/Casa) guidelines state gestational diabetes mellitus is present when 2 or more of the plasma glucose concentrations meet or exceed the following levels: fastin mg/dl, 1 hr: 180 mg/dl, 2 hr: 155 mg/dl, and 3 hr: 140 mg/dl. Performed By: #### G TGST2 ####[facility] [id number] [address] [place] GLUCOSE GESTATIONAL, 3 HOURo n 07-31-2024 Glucose 3 Hr post Unsp challenge [Mass/Vol] 129 mg/dL Normal 74-139 [facility] Comment on above: Order Comment: Speci men Type: BLOOD SPECIMENOrdering Facility: [facility] Address: [address] [place] [address] Result Comment: [facility] Congress of Obstetricians and Gynecologists (Yared/Casa) guidelines state gestational diabetes mellitus is present when 2 or more of the plasma glucose concentrations meet or exceed the following levels: fastin mg/dl, 1 hr: 180 mg/dl, 2 hr: 155 mg/dl, and 3 hr: 140 mg/dl. Performed By: #### G TGST3 ####[facility] [id number] [address] [place] GLUCOSE GESTATIONAL, FASTING on 07-31-2024 Glucose post fast [Mass/Vol] 81 mg/dL Normal 74-94 [facility] Comment on above: Order Comment: Speci men Type: BLOOD SPECIMENOrdering Facility: [facility] Address: [address] [place] [address] Result Comment: [facility] Congress of Obstetricians and Gynecologists (Yared/Casa) guidelines state gestational diabetes mellitus is present when 2 or more of the plasma glucose concentrations meet or exceed the following levels: fastin mg/dl, 1 hr: 180 mg/dl, 2 hr: 155 mg/dl, and 3 hr: 140 mg/dl. Performed By: #### G [facility] ####[facility]OSPITALJACQUIE [id number] [address] [place] CNPMary 07-24-2024 [facility] Tele[facility] (OGFVWE) -- LOUANN CLEMENTS ([id number]) 1995 F Date Time Provider Department 07/24/24 NURSE MED SURG NURSE [facility] OGFVWE During your visit today, we recorded the following information about you: Symone Abdi, RN 07/24/2024 11:46 AM Signed 3rd risk assessment form submitted 07/24/24 Symone Abdi RN Allergies As of Date: 07/24/2024 Noted Allergy Reaction PUMPKIN 03/08/2023 9 - Itching Comments: Swells itchy , hives Date Reviewed: 07/23/2024 Reviewed by: Franc Hyatt MA - Fully Assessed Reason for Visit: PRAF [4193] Prescriptions as of 07/24/2024 - aspirin, enteric coated (ECOTRIN LOW STRENGTH) 81 mg EC tablet Take 1 tablet by mouth once daily. - Azelaic Acid 15 % gel APPLY TO THE FACE TWICE A DAY - lidocaine (LIDODERM) 5 % apply 1 patch topically to affected areas for 12 hours on and 12 hours off as needed - PNV#24/iron aa kay/folic acid (COMPLETE ORAL) Take 3 Pieces of gum by mouth once daily. 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] 03/02/2024 Encounter Status:Closed by SYMONE ABDI on 07/24/24 Normal [facility] CBC W Auto Differential pane l (Bld)on 07-23-2024 Basophils (Bld) [#/Vol] 0.05 10*3/uL Normal <0.11 [facility] Comment on above: Order Comment: Speci men Type: BLOOD SPECIMENOrdering Facility: [facility] Address: [address] [place] [address] Performed By: #### 5 7021-8 ####[facility] [id number] [place] [address] [place] Basophils/100 WBC (Bld) 0.4 % Normal [facility] Comment on above: Order Comment: Speci men Type: BLOOD SPECIMENOrdering Facility: [facility] Address: [address] [place] [address] Performed By: #### 5 7021-8 ####[facility] [id number] [place] [address] [place] Differential cell count method Nom (Bld) Auto Normal [facility] Comment on above: Order Comment: Speci men Type: BLOOD SPECIMENOrdering Facility: [facility] Address: [address] [place] [address] Performed By: #### 5 7021-8 ####[facility] [id number] [place] [address] [place] Eosinophils (Bld) [#/Vol] 0.11 10*3/uL Normal <0.46 [facility] Comment on above: Order Comment: Speci men Type: BLOOD SPECIMENOrdering Facility: [facility] Address: [address] [place] [address] Performed By: #### 5 7021-8 ####[facility] [id number] [place] [address] [place] Eosinophils/100 WBC (Bld) 0.9 % Normal [facility] Comment on above: Order Comment: Speci men Type: BLOOD SPECIMENOrdering Facility: [facility] Address: [address] [place] [address] Performed By: #### 5 7021-8 ####[facility] [id number] [place] [address] [place] Erythrocyte distribution width (RBC) [Ratio] 13.0 % Normal 11.5-15.0 [facility] Comment on above: Order Comment: Speci men Type: BLOOD SPECIMENOrdering Facility: [facility] Address: [address] [place] [address] Performed By: #### 5 7021-8 ####[facility] [id number] [place] [address] [place] Hematocrit (Bld) [Volume fraction] 33.1 % Low 36.0-46.0 [facility] Comment on above: Order Comment: Speci men Type: BLOOD SPECIMENOrdering Facility: [facility] Address: [address] [place] [address] Performed By: #### 5 7021-8 ####[facility] PIERCECAHONEJACQUIE [id number] [place] [address] [place] Hemoglobin (Bld) [Mass/Vol] 11.2 g/dL Low 11.5-15.5 [facility] Comment on above: Order Comment: Speci men Type: BLOOD SPECIMENOrdering Facility: [facility] Address: [address] [place] [address] Performed By: #### 5 7021-8 ####[facility] [id number] [place] [address] [place] Immature granulocytes (Bld) [#/Vol] 0.16 10*3/uL High <0.10 [facility] Comment on above: Order Comment: Speci men Type: BLOOD SPECIMENOrdering Facility: [facility] Address: [address] [place] [address] Performed By: #### 5 7021-8 ####[facility] [id number] [place] [address] [place] Immature granulocytes/100 WBC (Bld) 1.3 % Normal [facility] Comment on above: Order Comment: Speci men Type: BLOOD SPECIMENOrdering Facility: [facility] Address: [address] [place] [address] Performed By: #### 5 7021-8 ####[facility] [id number] [place] [address] [place] Lymphocytes (Bld) [#/Vol] 1.90 10*3/uL Normal 1.00-4.00 [facility] Comment on above: Order Comment: Speci men Type: BLOOD SPECIMENOrdering Facility: [facility] Address: [address] [place] [address] Performed By: #### 5 7021-8 ####[facility] SYSTEMJUNELIA [id number] [place] [address] [place] Lymphocytes/100 WBC (Bld) 15.3 % Normal [facility] Comment on above: Order Comment: Speci men Type: BLOOD SPECIMENOrdering Facility: [facility] Address: [address] [place] [address] Performed By: #### 5 7021-8 ####[facility] SYSTEMJUNELIA [id number] [place] [address] [place] MCH (RBC) [Entitic mass] 32.2 pg Normal 26.0-34.0 [facility] Comment on above: Order Comment: Speci men Type: BLOOD SPECIMENOrdering Facility: [facility] Address: [address] [place] [address] Performed By: #### 5 7021-8 ####[facility] [id number] [place] [address] [place] MCHC (RBC) [Mass/Vol] 33.8 g/dL Normal 30.5-36.0 [facility] Comment on above: Order Comment: Speci men Type: BLOOD SPECIMENOrdering Facility: [facility] Address: [address] [place] [address] Performed By: #### 5 7021-8 ####[facility] [id number] [place] [address] [place] MCV (RBC) [Entitic vol] 95.1 fL Normal 80.0-100.0 [facility] Comment on above: Order Comment: Speci men Type: BLOOD SPECIMENOrdering Facility: [facility] Address: [address] [place], [place] [address] Performed By: #### 5 7021-8 ####[facility] [id number] [place] [id number] [place] Monocytes (Bld) [#/Vol] 0.57 10*3/uL Normal <0.87 [facility] Comment on above: Order Comment: Speci men Type: BLOOD SPECIMENOrdering Facility: [facility] Address: [address] [place] [address] Performed By: #### 5 7021-8 ####[facility] [id number] [place] [address] [place] Monocytes/100 WBC (Bld) 4.6 % Normal [facility] Comment on above: Order Comment: Speci men Type: BLOOD SPECIMENOrdering Facility: [facility] Address: [address] [place] [address] Performed By: #### 5 7021-8 ####[facility] [id number] [place] [address] [place] Neutrophils (Bld) [#/Vol] 9.61 10*3/uL High 1.45-7.50 [facility] Comment on above: Order Comment: Speci men Type: BLOOD SPECIMENOrdering Facility: [facility] Address: [address] [place] [address] Performed By: #### 5 7021-8 ####[facility] [id number] [place] [address] [place] Neutrophils/100 WBC (Bld) 77.5 % Normal [facility] Comment on above: Order Comment: Speci men Type: BLOOD SPECIMENOrdering Facility: [facility] Address: [address] [place] [address] Performed By: #### 5 7021-8 ####[facility] [id number] [place] [address] [place] Nucleated RBC (Bld) [#/Vol] 10*3/uL Normal <0.01 [facility] Comment on above: Order Comment: Speci men Type: BLOOD SPECIMENOrdering Facility: [facility] Address: [address] [place] [address] Performed By: #### 5 7021-8 ####[facility] PIERCEGEOVANNY [id number] [place] [address] [place] Nucleated RBC/100 WBC (Bld) [Ratio] 0.0 /100 WBC Normal [facility] Comment on above: Order Comment: Speci men Type: BLOOD SPECIMENOrdering Facility: [facility] Address: [address] [place] [address] Performed By: #### 5 7021-8 ####[facility] PIERCECAHONENCLIA [id number] [place] [address] [place] Platelet mean volume (Bld) [Entitic vol] 10.4 fL Normal 9.0-12.7 [facility] Comment on above: Order Comment: Speci men Type: BLOOD SPECIMENOrdering Facility: [facility] Address: [address] [place] [address] Performed By: #### 5 7021-8 ####[facility] SYSTEMNCDERRICKA [id number] [place] [address] [place] Platelets (Bld) [#/Vol] 193 10*3/uL Normal 150-400 [facility] Comment on above: Order Comment: Speci men Type: BLOOD SPECIMENOrdering Facility: [facility] Address: [address] [place] [address] Performed By: #### 5 7021-8 ####[facility] SYSTEMNCLIA [id number] [place] [address] [place] RBC (Bld) [#/Vol] 3.48 10*6/uL Low 3.90-5.20 [facility] Comment on above: Order Comment: Speci men Type: BLOOD SPECIMENOrdering Facility: [facility] Address: [address] [place] [address] Performed By: #### 5 7021-8 ####[facility] SYSTEMNCLIA [id number] [place] [address] [place] WBC (Bld) [#/Vol] 12.40 10*3/uL High 3.70-11.00 [facility] Comment on above: Order Comment: Speci men Type: BLOOD SPECIMENOrdering Facility: [facility] Address: [address] [place] [address] Performed By: #### 5 7021-8 ####[facility]NC[facility] [id number] [place] [address] [place] GESTATIONAL GLUCOSE SCREEN, 1-HOUR, 50 GRAM, NON-FASTINGon 07-23-2024 Glucose [Mass/Vol] 153 mg/dL High 74-134 [facility] Comment on above: Order Comment: Speci men Type: BLOOD SPECIMENOrdering Facility: [facility] Address: [address] [place] [address] Result Comment: [facility] Congress of Obstetricians and Gynecologists (Yared/Casa) guidelines state a gestational diabetes mellitus positive screen is made, in women not previously diagnosed with overt diabetes, when the 1 hr plasma glucose level is equal to or above 140 mg/dL. The [facility] Employment Interview[employer] and [facility] [place] recommends a 135 mg/dL cutoff. Performed By: #### G BPCR #### [facility] CLIA [id number] [address] [place] [address] [place] Reagin and Treponema pallidu m IgG and IgM [Interp]on 07-23-2024 T. pallidum IgG+IgM IA Ql (S) Non-Reactive Normal Nonreactive [facility] Comment on above: Order Comment: Speci men Type: BLOOD SPECIMENOrdering Facility: [facility] Address: [address] [place] [address] Performed By: #### 7 3752-8 ####[facility] LABCLIA [id number] [place] [address] [place] Reagin+T pallidum IgG+IgM Se rPl-Impon 07-23-2024 Reagin and Treponema pallidum IgG and IgM [Interp] Cannot exclude recent Treponemal infection if specimen collected within 7-10 days after appearance of suspect lesions or 2-3 weeks after an exposure. Clinical correlation is required. Normal [facility] Comment on above: Order Comment: Speci men Type: BLOOD SPECIMENOrdering Facility: [facility] Address: [address] [place] [address] Performed By: #### 7 3752-8 ####[facility] LABCLIA [id number] [address] [facility] TYPE + SCREEN PRENATALon ABO A Normal [facility] Comment on above: Order Comment: Speci men Type: BLOOD SPECIMENOrdering Facility: [facility] Address: [address] [place] [address] Performed By: #### T SPN ####[facility] BANKCLIA [id number] [place] [address] [place] Rh Nom (Bld) Negative Normal [facility] Comment on above: Order Comment: Speci men Type: BLOOD SPECIMENOrdering Facility: [facility] Address: [address] [place] [address] Performed By: #### T SPN ####[facility] BLOOD BANKCLIA [id number] [place] [address] [place] TYPE AND SCREEN EXPIRATION 07/26/2024 23:59 Normal [facility] Comment on above: Order Comment: Speci men Type: BLOOD SPECIMENOrdering Facility: [facility] Address: [address] [place] [address] Performed By: #### T SPN ####[facility] BLOOD BANKCLIA [id number] [place] [address] [place] CNPNon 05-27-2024 CNPN Telephone (OGFVWE) -- LOUANN CLEMENTS ([id number]) 1995 F Date Time Provider Department 05/27/24 NURSE MED SURG NURSE [facility] OGFVWE During your visit today, we recorded the following information about you: Symone Abdi, RN 05/27/2024 10:35 AM Signed 2nd risk assessment form submitted 05/27/24 Symone Abdi RN Allergies As of Date: 05/27/2024 Noted Allergy Reaction PUMPKIN 03/08/2023 9 - Itching Comments: Swells itchy , hives Date Reviewed: 05/26/2024 Reviewed by: Mita Ward, KATHY - Fully Assessed Reason for Visit: PRAF [4193] Prescriptions as of 05/27/2024 - Azelaic Acid 15 % gel APPLY TO THE FACE TWICE A DAY - lidocaine (LIDODERM) 5 % apply 1 patch topically to affected areas for 12 hours on and 12 hours off as needed - aspirin, enteric coated (ECOTRIN LOW STRENGTH) 81 mg EC tablet Take 1 tablet by mouth once daily. - PNV#24/iron aa kay/folic acid (COMPLETE ORAL) Take 3 Pieces of gum by mouth once daily. 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 - Single, live, intrauterine . - biometry is consistent with the established gestational age. - No malformations were visualized on a complete standard anatomic survey. - The amniotic fluid volume is normal amount. - The placenta is anterior, fundal. - The Transabdominal cervical length measures 35.6 mm with no evidence of funneling or other dynamic changes. - Not all structural malformations can be detected by ultrasound examination. Recommendations Additional follow-up as clinically indicated. Maternal Assessment Height 165 cm Height (ft) 5 ft Height (in) 5 in Physical Exam Initial weight (lb) 163 lb Initial BMI 27.12 kg/m Maternal assessment other: 2 Para 1 Method Transabdominal ultrasound examination. View: Adequate visualization Johnson . Number of fetuses: 1 Dating LMP on: 01/05/2024 GA by LMP 20 w + 2 d DENISE by LMP: 10/11/2024 GA by prior assessment 20 w + 2 d DENISE by prior assessment: 10/11/2024 Ultrasound examination on: 05/26/2024 GA by U/S based upon: AC, BPD, Femur, HC GA by U/S 20 w + 6 d DENISE by U/S: 10/07/2024 Assigned: based on stated DENISE, selected on 05/26/2024 Assigned GA 20 w + 2 d Assigned DENISE: 10/11/2024 General Evaluation Cardiac activity present. FHR 149 bpm. movements: present. Presentation: breech Placenta: Placental site: anterior, fundal Umbilical cord: Cord vessels: 3 vessel cord Amniotic fluid: Amount of AF: normal amount. MVP 5.3 cm Growth Overview Exam date GA BPD (mm) HC (mm) AC (mm) FL (mm) HL (mm) EFW (g) 05/26/2024 20w 2d 45.7 30% 183.1 63% 163.6 80% 35.4 89% 35.7 98% 406 89% Biometry Standard BPD 45.7 mm 19w 6d 30% Hadlock OFD 67.1 mm 21w 0d 96% Nicolaides HC 183.1 mm 20w 5d 63% Hayder Cerebellum tr 22.3 mm 20w 6d 88% Hill Nuchal fold 5.8 mm AC 163.6 mm 21w 3d 80% Hadlock Femur 35.4 mm 21w 3d 89% Hayder Humerus 35.7 mm 22w 3d 98% Hayder EFW 406 g 21w 1d 89% Hadlock EFW (lb) 0 lb EFW (oz) 14 oz EFW by: Hadlock (HC-AC-FL) Extended Feller Hand 4.8 mm CM 4.6 mm 35% Nicolaides Extremities / Bony Struc FL / HC 0.19 58% Hadlock Other Structures FHR 149 bpm Anatomy Cranium: normal Lateral ventricles: normal Choroid plexus: normal Midline falx: normal Cavum septi pellucidi: normal Cerebellum: normal Cisterna magna: normal Head / Neck Vermis: Normal but not required for a standard anatomy exam Neck: Normal but not required for a standard anatomy exam Nuchal fold: Normal but not required for a standard anatomy exam Lips: normal Profile: Normal but not required for a standard anatomy exam Nose: Normal but not required for a standard anatomy exam Face Maxilla: Normal but not required for a standard anatomy exam Mandible: Normal but not required for a standard anatomy exam Orbits: Normal but not required for a standard anatomy exam Lens: Normal but not required for a standard anatomy exam 4-chamber view: normal RVOT view: normal LVOT view: normal 3-vessel view: normal 7-[id number]-swlltdg view: normal Heart / Thorax Situs: situs solitus (normal) Aortic arch view: Normal but not required for a standard anatomy exam SVC: Normal but not required for a standard anatomy exam IVC: Normal but not required for a standard anatomy exam Cardiac axis: normal Rt lung: Normal but not required for a standard anatomy exam Lt lung: Normal but not required for a standard anatomy exam Diaphragm: Normal but not required for a standard anatomy exam Cord insertion: normal Stomach: normal Kidneys: normal Bladder: normal Genitals: normal Abdomen Abdom. wall: normal Cervical spine: normal Thoracic spine: normal Lumbar spine: normal Sacral spine: normal Arms: normal Legs: normal Rt upper arm: normal Rt forearm: normal Rt hand: normal Rt fingers: normal Lt upper arm: normal Lt forearm: normal Lt hand: normal Lt fingers: normal Rt upper leg: normal Rt lower leg: normal Rt foot: normal Lt upper leg: normal Lt lower leg: normal Lt foot: normal sex: female Wants to know sex: yes Maternal Structures Uterus / Cervix Uterus: Visualized Cervix: Visualized Approach: Transabdominal Cervical length 35.6 mm Other: Patient declined transvaginal ultrasound for cervical length. Ovaries / Tubes / Adnexa Rt ovary: Visualized Lt ovary: Visualized Performed By: Teresa Eduardo RDMS, RVT Read By: Jeanine Acosta M.D. MATERNAL MEDICINE [facility] Examination level ultrasound on 05-26-2024 Radiology Study observation (narrative) [facility] CNPNon 04-29-2024 CNPN Telephone (OBGYWM) -- LOUANN CLEMENTS ([id number]) 1995 F Date Time Provider Department 04/29/24 SREEDHAR SHIELDS During your visit today, we recorded the following information about you: Chiquita Cartwright, RN 04/29/2024 4:16 PM Signed 16w3d Pt woke up around 0545. Did not eat until she was on way to work around 0630-breakfast pizza (eggs with sausage gravy on it) and didn't eat anything else until like 0845 (ate granola bar). States she felt hydrated. 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 Pt did not fall, states co-worker was nearby and lowered Pt to floor. Pt then vomited. Holden weak. Could see again. Holden hot. Afebrile. BP was 115/68. Pt saw and drank yeison rachid. Sat for 30 minutes and continued on with day at work. Has felt fine since. Denies headache, light headedness/dizziness, blurred vision at this time. Stay hydrated, get plenty of rest, eat high protein meals/snacks-especially after waking up in the morning. Advised Pt to monitor for light headedness/dizziness/sever e headache to call the office or if she has any more blacking out episodes prior to her appt tomorrow at 4:05pm to go to ER to be evaluated. Pt voiced understanding. KATHY Whalen Rebecca L, MD 04/29/2024 4:55 PM Signed agree w/ below; discuss tomorrow. May need to walk around and wear support stockings. EVal if further workup needed at appointment. Sreedhar Shields MD Allergies As of Date: 04/29/2024 Noted Allergy Reaction PUMPKIN 03/08/2023 9 - Itching Comments: Swells itchy , hives Date Reviewed: 04/02/2024 Reviewed by: Nazanin Beckwith MD - Fully Assessed Reason for Visit: Blacking out episode [Other] Prescriptions as of 04/29/2024 - aspirin, enteric coated (ECOTRIN LOW STRENGTH) 81 mg EC tablet Take 1 tablet by mouth once daily. - PNV#24/iron aa kay/folic acid (COMPLETE ORAL) Take 3 Pieces of gum by mouth once daily. 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] 03/02/2024 Encounter Status:Closed by SOHEILA GARCIA on 04/29/24 Normal [facility] [id number] PLUSon 04-02-2024 Cell-free DNA./Cell-free DNA.total Dosage of chromosome-specific cfDNA (cfDNA) [Molar fraction] 22% Normal [facility] Comment on above: Order Comment: Speci men Type: BLOOD SPECIMENOrdering Facility: [facility] Address: [address] [place] [address] Performed By: #### G BPCR #### [facility] CLIA [id number] [address] [place] [address] [place] Chr 13+18+21+X+Y aneuploidy Dosage of chromosome-specific cfDNA Ql (cfDNA) Negative Normal [facility] Comment on above: Order Comment: Speci men Type: BLOOD SPECIMENOrdering Facility: [facility] Address: [address] [place] [address] Performed By: #### G BPCR #### [facility] CLIA [id number] [address] [place] [address] OF [place] Chr 21 trisomy Dosage of chromosome-specific cfDNA Ql (cfDNA) Negative Normal [facility] Comment on above: Order Comment: Speci men Type: BLOOD SPECIMENOrdering Facility: [facility] Address: [address] [place] [address] Performed By: #### G BPCR #### [facility] CLIA [id number] [address] [place] [address] [place] Chr X and Y aneuploidy risk Sequencing Ql (cfDNA) [Interp] Not detected Normal [facility] Comment on above: Order Comment: Speci men Type: BLOOD SPECIMENOrdering Facility: [facility] Address: [address] [place] [address] Result Comment: Not Detected Not Detected Performed By: #### G BPCR #### [facility] CLIA [id number] [address] [place] [address] [place] Citation Kash (Reference lab test) Comment Normal [facility] Comment on above: Order Comment: Speci men Type: BLOOD SPECIMENOrdering Facility: [facility] Address: [address] [place] [address] Result Comment: 1. P ambrosio AVILEZ, et al. Corinne Med. 2012;14(3):296-305. 2. Chris GRIFFIN et al. Prenat Diag. 2013;33(6):591-597. 3. Dimitri Westfall et al. Clin Chem. 2015 Apr;61(4):608-616. 4. Nii AVILEZ, et al. Corinne Med. 2011;13(11):913-920. 5. ACOG/SMFM Practice Bulletin No. 226, Nov 2019. Performed By: #### G BPCR #### [facility] CLIA [id number] [address] [place] [address] [place] Gestational age Estimated from conception date Johnson Normal [facility] Comment on above: Order Comment: Speci men Type: BLOOD SPECIMENOrdering Facility: [facility] Address: [address] [place] [address] Performed By: #### G BPCR #### [facility] CLIA [id number] [address] [place] [address] STATES OF [place] GESTATIONALAGE AGE > OR = 9W Yes Normal [facility] Comment on above: Order Comment: Speci men Type: BLOOD SPECIMENOrdering Facility: [facility] Address: [address] [place] [address] Performed By: #### G BPCR #### [facility] CLIA [id number] [address] [place] [address] [place] Laboratory comment Kash (Report) Comment Normal [facility] Comment on above: Order Comment: Speci men Type: BLOOD SPECIMENOrdering Facility: [facility] Address: [address] [place] [address] Result Comment: The MaterniT(R) 21 PLUS laboratory-developed test (LDT) analyzes circulating cell-free DNA from a maternal blood sample. This test is used for screening purposes and not diagnostic. Clinical correlation is recommended. Validation data on twin pregnancies is limited and the ability of this test to detect aneuploidy in higher multiple gestations has not yet been validated. Performed By: #### G BPCR #### [facility] CLIA [id number] [address] [place] [address] area operations director name Nom (Provider) Comment Normal [facility] Comment on above: Order Comment: Speci men Type: BLOOD SPECIMENOrdering Facility: [facility] Address: [address] [place] [address] Result Comment: This specimen showed an expected representation of chromosome 21, 18 and 13 material. Clinical correlation is suggested. Comment Reji Castellano MD, PhD, Director, [employer] Performed By: #### G BPCR #### [facility] CLIA [id number] [address] [place] [address] LIMITATIONS OF THE TEST Comment Normal [facility] Comment on above: Order Comment: Speci men Type: BLOOD SPECIMENOrdering Facility: [facility] Address: [address] [place] [address] Result Comment: Whil e the results of these tests are highly reliable, discordant results, including inaccurate sex prediction, may occur due to placental, maternal, or mosaicism or neoplasm; vanishing twin; prior maternal organ transplant; or other causes. These tests are screening tests and not diagnostic; they do not replace the accuracy and precision of diagnosis with CVS or amniocentesis. A patient with a positive test result should be referred for genetic counseling and offered invasive diagnosis for confirmation of test results.[5] The results of this testing, including the benefits and limitations, should be discussed with a qualified healthcare provider. management decisions, including termination of the , should not be based on the results of these tests alone. The healthcare provider is responsible for the use of this information in the management of their patient. Sex chromosomal aneuploidies are not reportable for known multiple gestations. A negative result does not ensure an unaffected nor does it exclude the possibility of other chromosomal abnormalities or defects which are not a part of these tests. An uninformative result may be reported, the causes of which may include, but are not limited to, insufficient sequencing coverage, noise or artifacts in the region, amplification or sequencing bias, or insufficient fraction. These tests are not intended to identify pregnancies at risk for neural tube defects or ventral wall defects. Testing for whole chromosome abnormalities (including sex chromosomes) and for subchromosomal abnormalities could lead to the potential discovery of both and maternal genomic abnormalities that could have major, minor, or no, clinical significance. Evaluating the significance of a positive or a non-reportable result may involve both invasive testing and additional studies on the mother. Such investigations may lead to a diagnosis of maternal chromosomal or subchromosomal abnormalities, which on occasion may be associated with benign or malignant maternal neoplasms. These tests may not accurately identify triploidy, balanced rearrangements, or the precise location of subchromosomal duplications or deletions; these may be detected by diagnosis with CVS or amniocentesis. The ability to report results may be impacted by maternal BMI, maternal weight, maternal systemic lupus erythematosus (SLE) and/or by certain pharmaceutical agents such as low molecular weight heparin (for example: Lovenox(R), Xaparin(R), Clexane(R) and Fragmin(R)). Performed By: #### G BPCR #### [facility] CLIA [id number] [address] [place] [address] [place] Monosomy X risk Dosage of chromosome-specific cfDNA Ql (Plasma cell-free+WBC DNA) [Interp] Not detected Normal [facility] Comment on above: Order Comment: Speci alexandra Type: BLOOD SPECIMENOrdering Facility: [facility] Address: [address] [place] [address] Performed By: #### G BPCR #### [facility] CLIA [id number] [address] [place] [address] STATES [facility] NEGATIVE PREDICTIVE VALUE Note Normal [facility] Comment on above: Order Comment: Mora morris Type: BLOOD SPECIMENOrdering Facility: [facility] Address: [address] [place] [address] Result Comment: The Negative Predictive Value (NPV) for trisomy 21, 18, and 13 is greater than 99%. The NPV for SCA and ESS cannot be calculated as SCA and ESS are only reported when an abnormality is detected. Performed By: #### G BPCR #### [facility] CLIA [id number] [facility] [place] [id number] [facility] PERFORMANCE CHARACTERISTICS Note Normal [facility] Comment on above: Order Comment: Mora morris Type: BLOOD SPECIMENOrdering Facility: [facility] Address: [address] [facility] [address] [place] [id number] Result Comment: ! Sex ! Accuracy: 99.4% ! ! ! ! Region (associated syndrome) ! Est. Sens# ! Est. Spec ! ! ! ! Trisomy 21 (Down Syndrome) ! 99.1% ! 99.9% ! ! ! ! Trisomy 18 (Wren Syndrome) ! >99.9% ! 99.6% ! ! ! ! Trisomy 13 (Patau Syndrome) ! 91.7% ! 99.7% ! ! ! ! Sex Chromosome Aneuploidies## ! 96.2% ! 99.7% ! ! ! * As reported in [facility] database nstd37 [https://www.ncbi.nlm.nih.gov/dbvar/studies/nstd37/ ] # Estimated Sensitivity. Sensitivity estimated across the observed size distribution of each syndrome [per [facility] nstd37] and across the range of fractions observed in routine clinical NIPT. Actual sensitivity can also be influenced by other factors such as the size of the event, total sequence counts, amplification bias, or sequence bias. ## Johnson gestation only. Performed By: #### G BPCR #### [facility] CLIA [id number] [address] [place] [address] POSITIVE PREDICTIVE VALUE N/A Normal [facility] Comment on above: Order Comment: Speci men Type: BLOOD SPECIMENOrdering Facility: [facility] Address: [address] [place] [address] Performed By: #### G BPCR #### [facility] CLIA [id number] [address] [place] [address] [place] Reference Lab Test Method Comment Normal [facility] Comment on above: Order Comment: Speci men Type: BLOOD SPECIMENOrdering Facility: [facility] Address: [address] [place] [address] Result Comment: See Notes Circulating cell-free DNA was purified from the plasma component of maternal blood. The extracted DNA was then converted into a genomic DNA library for aneuploidy analysis of chromosomes 21, 18, and 13 via next generation sequencing.[1] Optional findings based on the test order include sex chromosome aneuploidy (SCA)[2], and enhanced sequencing series (ESS)[3], which will only be reported on as an additional finding when an abnormality is detected. SCA testing includes information on X and Y representation, while ESS testing includes deletions in selected regions (22q, 15q, 11q, 8q, 5p, 4p, 1p) and trisomy of chromosomes 16 and 22. Performed By: #### G BPCR #### [facility] CLIA [id number] [address] [place] [address] [place] Service comment (Unsp spec) [Interp] Comment Normal [facility] Comment on above: Order Comment: Speci men Type: BLOOD SPECIMENOrdering Facility: [facility] Address: [address] [place], [place] [id number] Result Comment: See Notes [facility]. is a subsidiary of [employer], using the brand [employer]. This test was developed and its performance characteristics determined by [employer]. It has not been cleared or approved by the Food and Drug Administration. This laboratory is certified under the Clinical Laboratory Improvement Amendments (CLIA) as qualified to perform high complexity clinical laboratory testing and accredited by the [employer] (CAP). If there is future clinical need for adding MaterniT GENOME testing, this specimen will be available until term. [facility] samples will not be retained beyond 60 days. [facility] patients will have to send a new sample for re-sequencing ([facility] Test Code: [id number]). Performed By: #### G BPCR #### [facility] CLIA [id number] [address] [place], [place] [id number] [place] Sex Dosage of chromosome-specific cfDNA Nom (cfDNA) Comment Normal [facility] Comment on above: Order Comment: Speci men Type: BLOOD SPECIMENOrdering Facility: [facility] Address: [address] [place] [address] Result Comment: Cons istent with Female Performed By: #### G BPCR #### [facility] CLIA [id number] [address] [place] [address] [facility] [place] Test performance information Kash (Unsp spec) Comment Normal [facility] Comment on above: Order Comment: Speci men Type: BLOOD SPECIMENOrdering Facility: [facility] Address: [address] [place] [address] Result Comment: The performance characteristics of the MaterniT(R) 21 PLUS laboratory-developed test (LDT) have been determined in a clinical validation study with women at increased risk for chromosomal aneuploidy.[1-4] Performed By: #### G BPCR #### [facility] CLIA [id number] [address] [place] [address] OF [place] Trisomy 13 risk Dosage of chromosome-specific cfDNA Ql (cfDNA) [Interp] Negative Normal [facility] Comment on above: Order Comment: Speci men Type: BLOOD SPECIMENOrdering Facility: [facility] Address: [address] [place] [address] Performed By: #### G BPCR #### [facility] CLIA [id number] [address] [place] [address] OF [place] Trisomy 18 risk Dosage of chromosome-specific cfDNA Ql (Plasma cell-free+WBC DNA) [Interp] Negative Normal [facility] Comment on above: Order Comment: Speci men Type: BLOOD SPECIMENOrdering Facility: [facility] Address: [address] [place] [address] Performed By: #### G BPCR #### [facility] CLIA [id number] [address] [place] [address] [place] Examination level ultrasound on 04-01-2024 Indication First trimester anatomic survey Impression The patient is referred for a first trimester anatomy scan including nuchal translucency measurement as clinically indicated. - Single, live, intrauterine . - Monett rump length measurement is consistent with the established gestational age. - A qualitative screen of the nuchal translucency and other anatomic structures was unremarkable on a complete first trimester anatomic assessment. - Not all structural malformations can be detected by ultrasound examination. Maternal Structures: Right Ovary: Size 28 mm x 18 mm x 15 mm Recommendations Return for anatomy ultrasound Maternal Assessment Height 165 cm Height (ft) 5 ft Height (in) 5 in Physical Exam Initial weight (lb) 163 lb Initial BMI 27.12 kg/m Maternal assessment other: 2 Para 1 Method Transabdominal ultrasound examination, Color Doppler examination. View: Adequate visualization Johnson . Number of fetuses: 1 Dating LMP on: 01/05/2024 GA by LMP 12 w + 2 d DENISE by LMP: 10/11/2024 GA by prior assessment 12 w + 2 d DENISE by prior assessment: 10/11/2024 Ultrasound examination on: 03/31/2024 GA by U/S based upon: CRL GA by U/S 13 w + 3 d DENISE by U/S: 10/03/2024 Assigned: based on ultrasound (CRL), selected on 03/31/2024 Assigned GA 13 w + 3 d Assigned DENISE: 10/03/2024 General Evaluation Cardiac activity present Placenta: anterior Cord vessels: 3 vessel cord Amniotic fluid: normal amount Biometry Standard FHR 154 bpm CRL 72.8 mm 13w 3d 47% Hadlock First Trimester Anatomy Calvarium: normal Falx cerebri: normal Choroid plexus: normal Profile: normal Nasal bone: normal Retronasal triangle: normal Maxilla: normal Mandible: normal Nuchal translucency: Unremarkable Situs: normal Cardiac position: normal Cardiac axis: normal 4-chamber view: suboptimal 4-chamber view with color: suboptimal [id number] view: suboptimal Abdominal cord insertion: normal Stomach: normal Kidneys: visualized Bladder: normal Color doppler of perivesical umbilical arteries: normal Vertebral alignment: normal Arms: normal Hands: normal Legs: normal Feet: normal Maternal Structures Uterus / Cervix Uterus: Visualized Uterus length 168 mm Uterus width 114 mm Uterus height 58 mm Uterus Vol 580.6 cm Ovaries / Tubes / Adnexa Rt ovary D1 28 mm Rt ovary D2 18 mm Rt ovary D3 15 mm Rt ovary Vol 3.8 cm Performed By: Sintia Stephens RDMS Read By: Jeanine Acosta M.D. MATERNAL MEDICINE [facility] CBC W Auto Diff [place] 2024 Erythrocyte distribution width (RBC) [Ratio] 12.3 % Normal 11.5-15.0 [facility] Comment on above: Order Comment: Speci men Type: BLOOD SPECIMENOrdering Facility: [facility] Address: [address] [place] [address] Performed By: #### G BPCR #### [facility] CLIA [id number] [address] [place] [address] [place] Performed By: #### L [id number] ####[facility] LAB[facility]IA [id number] [place] [address] [place] CBC W Auto Differential pane l (Bld)on 03-31-2024 Basophils (Bld) [#/Vol] 0.04 10*3/uL Normal <0.11 [facility] Comment on above: Order Comment: Speci men Type: BLOOD SPECIMENOrdering Facility: [facility] Address: [address] [place] [address] Performed By: #### G BPCR #### [facility] CLIA [id number] [address] [place] [address] [place] Basophils/100 WBC (Bld) 0.4 % Normal [facility] Comment on above: Order Comment: Speci men Type: BLOOD SPECIMENOrdering Facility: [facility] Address: [address] [place] [address] Performed By: #### G BPCR #### [facility] CLIA [id number] [address] [place] [address] [place] Differential cell count method Nom (Bld) Auto Normal [facility] Comment on above: Order Comment: Speci men Type: BLOOD SPECIMENOrdering Facility: [facility] Address: [address] [place] [address] Performed By: #### G BPCR #### [facility] CLIA [id number] [address] [place] [address] [place] Eosinophils (Bld) [#/Vol] 0.05 10*3/uL Normal <0.46 [facility] Comment on above: Order Comment: Speci men Type: BLOOD SPECIMENOrdering Facility: [facility] Address: [address] [place] [address] Performed By: #### G BPCR #### [facility] CLIA [id number] [address] [place] [address] [place] Eosinophils/100 WBC (Bld) 0.5 % Normal [facility] Comment on above: Order Comment: Speci men Type: BLOOD SPECIMENOrdering Facility: [facility] Address: [address] [place] [address] Performed By: #### G BPCR #### [facility] CLIA [id number] [address] [place] [address] [place] Hematocrit (Bld) [Volume fraction] 38.6 % Normal 36.0-46.0 [facility] Comment on above: Order Comment: Speci men Type: BLOOD SPECIMENOrdering Facility: [facility] Address: [address] [place] [address] Performed By: #### G BPCR #### [facility] CLIA [id number] [address] [place] [address] [place] Hemoglobin (Bld) [Mass/Vol] 12.9 g/dL Normal 11.5-15.5 [facility] Comment on above: Order Comment: Speci men Type: BLOOD SPECIMENOrdering Facility: [facility] Address: [address] [place] [address] Performed By: #### G BPCR #### [facility] CLIA [id number] [address] [place] [address] [place] Immature granulocytes (Bld) [#/Vol] 0.05 10*3/uL Normal <0.10 [facility] Comment on above: Order Comment: Speci men Type: BLOOD SPECIMENOrdering Facility: [facility] Address: [address] [place] [address] Performed By: #### G BPCR #### [facility] CLIA [id number] [address] [place] [address] [place] Immature granulocytes/100 WBC (Bld) 0.5 % Normal [facility] Comment on above: Order Comment: Speci men Type: BLOOD SPECIMENOrdering Facility: [facility] Address: [address] [place] [address] Performed By: #### G BPCR #### [facility] CLIA [id number] [address] [place] [address] [place] Lymphocytes (Bld) [#/Vol] 2.64 10*3/uL Normal 1.00-4.00 [facility] Comment on above: Order Comment: Speci men Type: BLOOD SPECIMENOrdering Facility: [facility] Address: [address] [place] [address] Performed By: #### G BPCR #### [facility] CLIA [id number] [address] [place] [address] [place] Lymphocytes/100 WBC (Bld) 27.0 % Normal [facility] Comment on above: Order Comment: Speci men Type: BLOOD SPECIMENOrdering Facility: [facility] Address: [address] [place] [address] Performed By: #### G BPCR #### [facility] CLIA [id number] [address] [place] [address] [place] MCH (RBC) [Entitic mass] 30.8 pg Normal 26.0-34.0 [facility] Comment on above: Order Comment: Speci men Type: BLOOD SPECIMENOrdering Facility: [facility] Address: [address] [place] [address] Performed By: #### G BPCR #### [facility] CLIA [id number] [address] [place] [address] [place] MCHC (RBC) [Mass/Vol] 33.4 g/dL Normal 30.5-36.0 [facility] Comment on above: Order Comment: Speci men Type: BLOOD SPECIMENOrdering Facility: [facility] Address: [address] [place] [address] Performed By: #### G BPCR #### [facility] CLIA [id number] [address] [place] [address] [place] MCV (RBC) [Entitic vol] 92.1 fL Normal 80.0-100.0 [facility] Comment on above: Order Comment: Speci men Type: BLOOD SPECIMENOrdering Facility: [facility] Address: [address] [place] [address] Performed By: #### G BPCR #### [facility] CLIA [id number] [address] [place] [address] [place] Monocytes (Bld) [#/Vol] 0.42 10*3/uL Normal <0.87 [facility] Comment on above: Order Comment: Speci men Type: BLOOD SPECIMENOrdering Facility: [facility] Address: [address] [place] [address] Performed By: #### G BPCR #### [facility] CLIA [id number] [address] [place] [address] [place] Monocytes/100 WBC (Bld) 4.3 % Normal [facility] Comment on above: Order Comment: Speci men Type: BLOOD SPECIMENOrdering Facility: [facility] Address: [address] [place] [address] Performed By: #### G BPCR #### [facility] CLIA [id number] [address] [place] [address] [place] Neutrophils (Bld) [#/Vol] 6.56 10*3/uL Normal 1.45-7.50 [facility] Comment on above: Order Comment: Speci men Type: BLOOD SPECIMENOrdering Facility: [facility] Address: [address] [place] [address] Performed By: #### G BPCR #### [facility] CLIA [id number] [address] [place] [address] [place] Neutrophils/100 WBC (Bld) 67.3 % Normal [facility] Comment on above: Order Comment: Speci men Type: BLOOD SPECIMENOrdering Facility: [facility] Address: [address] [place] [address] Performed By: #### G BPCR #### [facility] CLIA [id number] [address] [place] [address] [place] Nucleated RBC (Bld) [#/Vol] 10*3/uL Normal <0.01 [facility] Comment on above: Order Comment: Speci men Type: BLOOD SPECIMENOrdering Facility: [facility] Address: [address] [place] [address] Performed By: #### G BPCR #### [facility] CLIA [id number] [address] [place] [address] [place] Nucleated RBC/100 WBC (Bld) [Ratio] 0.0 /100 WBC Normal [facility] Comment on above: Order Comment: Speci men Type: BLOOD SPECIMENOrdering Facility: [facility] Address: [address] [place] [address] Performed By: #### G BPCR #### [facility] CLIA [id number] [address] [place] [address] [place] Platelet mean volume (Bld) [Entitic vol] 11.1 fL Normal 9.0-12.7 [facility] Comment on above: Order Comment: Speci men Type: BLOOD SPECIMENOrdering Facility: [facility] Address: [address] [place] [address] Performed By: #### G BPCR #### [facility] CLIA [id number] [address] [place] [address] [place] Platelets (Bld) [#/Vol] 241 10*3/uL Normal 150-400 [facility] Comment on above: Order Comment: Speci men Type: BLOOD SPECIMENOrdering Facility: [facility] Address: [address] [place] [address] Performed By: #### G BPCR #### [facility] CLIA [id number] [address] [place] [address] [place] RBC (Bld) [#/Vol] 4.19 10*6/uL Normal 3.90-5.20 [facility] Comment on above: Order Comment: Speci men Type: BLOOD SPECIMENOrdering Facility: [facility] Address: [address] [place] [address] Performed By: #### G BPCR #### [facility] CLIA [id number] [address] [place] [address] [place] WBC (Bld) [#/Vol] 9.76 10*3/uL Normal 3.70-11.00 [facility] Comment on above: Order Comment: Speci men Type: BLOOD SPECIMENOrdering Facility: [facility] Address: [address] [place] [address] Performed By: #### G BPCR #### [facility] CLIA [id number] [address] [place] [address] [place] Examination level ultrasound on 03-31-2024 Radiology Study observation (narrative) [facility] HBV surface Ag Ser Qlon 03-14 HBV surface Ag Ql (S) Negative Normal Negative [facility] Comment on above: Order Comment: Speci men Type: BLOOD SPECIMENOrdering Facility: [facility] Address: [address] [place] [address] Performed By: #### 5 195-3, 32981-4, 53040-9 ####[facility]IA [id number] [address] [place] HCV Ab Ser Qlon 03-31-2024 HCV Ab Ql (S) Negative Normal Negative [facility] Comment on above: Order Comment: Speci men Type: BLOOD SPECIMENOrdering Facility: [facility] Address: [address] [place] [address] Result Comment: The result suggests no evidence of active infection with Hepatitis C virus. Should recent infection be suspected, repeat testing may be considered 4-6 weeks after this draw. Performed By: #### 1 6128-1 ####[facility]IA [id number] [place] [address] [place] HGB ELECTROPHORESIS FOR EVAL (LAB ORDER)on 03-31-2024 Hemoglobin A (Bld) [Mass fraction] 97.0 % Normal 96.2-98.0 [facility] Comment on above: Order Comment: Speci men Type: BLOOD SPECIMENOrdering Facility: [facility] Address: [address] [place] [address] Performed By: #### L [id number], HGBELEV ####[facility]IA [id number] [place] [address] [place] Hemoglobin A2 (Bld) [Mass fraction] 2.7 % Normal 2.0-3.1 [facility] Comment on above: Order Comment: Speci men Type: BLOOD SPECIMENOrdering Facility: [facility] Address: [address] [place] [address] Performed By: #### L [id number], HGBELEV ####[facility] [id number] [place] [address] [place] Hemoglobin F (Bld) [Mass fraction] 0.3 % Normal 0.0-0.9 [facility] Comment on above: Order Comment: Speci men Type: BLOOD SPECIMENOrdering Facility: [facility] Address: [address] [place] [address] Performed By: #### L [id number], HGBELEV ####[facility]IA [id number] [place] [address] [place] Hemoglobin Unsp Elph (Bld) [Mass fraction] No abnormal hemoglobin identified. Normal No abnormal hemoglobin identified. [facility] Comment on above: Order Comment: Speci men Type: BLOOD SPECIMENOrdering Facility: [facility] Address: [address] [place] [address] Performed By: #### L [id number], HGBELEV ####[facility]CLIA [id number] [place] [address] [place] HGB EVALUATION CASCADE INTER Carlos 03-31-2024 Hemoglobin pattern (Bld) [Interp] Reviewed by Vaishali Frazier M.D. Normal [facility] Comment on above: Order Comment: Speci men Type: BLOOD SPECIMENOrdering Facility: [facility] Address: [address] [place] [address] Performed By: #### L [id number], HGBELEV ####[facility]CLIA [id number] [place] [address] [place] INTERPRETATION (HGB EVAL) Normal [facility] Comment on above: Order Comment: Speci men Type: BLOOD SPECIMENOrdering Facility: [facility] Address: [address] [place] [address] Result Comment: Hemo globins were analyzed by capillary electrophoresis and CBC red cell parameters were reviewed. No abnormal hemoglobin is identified. There is normal hemoglobin capillary electrophoresis pattern. Performed By: #### L [id number], HGBELEV ####[facility]IA [id number] [place] [address] [place] HIV 1+2 Ab IA Qlon 5 HIV 1 and 2 Ab IA.rapid Nom (S/P/Bld) Normal [facility] Comment on above: Order Comment: Speci men Type: BLOOD SPECIMENOrdering Facility: [facility] Address: [address] [place] [address] Result Comment: Test not indicated. Performed By: #### 5 195-3, 19448-3, 34222-3 ####[facility]IA [id number] [place] [address] [place] HIV 1+2 Ab+HIV1 p24 Ag IA Ql Non-Reactive Normal Nonreactive [facility] Comment on above: Order Comment: Speci men Type: BLOOD SPECIMENOrdering Facility: [facility] Address: [address] [place] [address] Performed By: #### 5 195-3, 42183-0, 24933-8 ####[facility]CLIA [id number] [place] [address] [place] HIV immunoassay testing algorithm interpretation (S/P/Bld) [Interp] Normal [facility] Comment on above: Order Comment: Speci men Type: BLOOD SPECIMENOrdering Facility: [facility] Address: [address] [place] [address] Result Comment: No e vidence of HIV-1 or HIV-2 infection. Should recent infection be suspected, repeat testing may be considered 2-3 weeks after this draw. [place] Rev. Code 3701.243(E): This information has been disclosed to you from confidential records protected from disclosure by state law. ???You shall make no further disclosure of this information without the specific, written, and informed release of the individual to whom it pertains or as otherwise permitted by state law. A general authorization for the release of medical or other information is not sufficient for the purpose of the release of HIV test results or diagnoses. Performed By: #### 5 195-3, 69649-5, 87410-1 ####[facility]CLIA [id number] [place] [address] [place] HbA1c (Bld)on 03-31-2024 Average glucose Estimated from glycated hemoglobin (Bld) [Mass/Vol] 88 mg/dL Normal [facility] Comment on above: Order Comment: Speci men Type: BLOOD SPECIMENOrdering Facility: [facility] Address: [address] [place] [address] Result Comment: eAG: (Estimated average glucose) is a calculated value from HgbA1c and is pharmacy services representative of the average blood glucose level in the last 2-3 month period. Performed By: #### G BPCR #### [facility] CLIA [id number] [address] [place] [address] [place] HbA1c (Bld) [Mass fraction] 4.7 % Normal 4.3-5.6 [facility] Comment on above: Order Comment: Speci men Type: BLOOD SPECIMENOrdering Facility: [facility] Address: [address] [place] [address] Result Comment: Amer [place] Diabetes Association guidelines indicate that patients with HgbA1c in the range 5.7-6.4% are at increased risk for development of diabetes, and intervention by lifestyle modification may be beneficial. HgbA1c greater or equal to 6.5% is considered diagnostic of diabetes. Performed By: #### G BPCR #### [facility] CLIA [id number] [address] [place] [address] [place] RBC PARAMETERS FOR HB IDon 0 - Hematocrit (Bld) [Volume fraction] 37.9 % Normal 36.0-46.0 [facility] Comment on above: Order Comment: Mora morris Type: BLOOD SPECIMENOrdering Facility: [facility] Address: [address] [place] [address] Performed By: #### L [id number] ####[facility]CLIA [id number] [place] [address] [place] Hemoglobin (Bld) [Mass/Vol] 12.7 g/dL Normal 11.5-15.5 [facility] Comment on above: Order Comment: Mora morris Type: BLOOD SPECIMENOrdering Facility: [facility] Address: [address] [place] [address] Performed By: #### L [id number] ####[facility]CLIA [id number] [place] [address] [place] MCH (RBC) [Entitic mass] 31.1 pg Normal 26.0-34.0 [facility] Comment on above: Order Comment: Carmeni alexandra Type: BLOOD SPECIMENOrdering Facility: [facility] Address: [address] [place] [address] Performed By: #### L [id number] ####[facility]CLIA [id number] [place] [address] [place] MCHC (RBC) [Mass/Vol] 33.5 g/dL Normal 30.5-36.0 [facility] Comment on above: Order Comment: Speci men Type: BLOOD SPECIMENOrdering Facility: [facility] Address: [address] [place] [address] Performed By: #### L [id number] ####[facility]CLIA [id number] [place] [address] [place] MCV (RBC) [Entitic vol] 92.9 fL Normal 80.0-100.0 [facility] Comment on above: Order Comment: Speci men Type: BLOOD SPECIMENOrdering Facility: [facility] Address: [address] [place] [address] Performed By: #### L [id number] ####[facility]CLIA [id number] [place] [address] [place] RBC (Bld) [#/Vol] 4.08 10*6/uL Normal 3.90-5.20 [facility] Comment on above: Order Comment: Speci men Type: BLOOD SPECIMENOrdering Facility: [facility] Address: [address] [place] [address] Performed By: #### L [id number] ####[facility]CLIA [id number] [place] [address] [place] RUBELLA IGG ANTIBODYon 03-31 RUBELLA IGG AB, QUAL Positive Normal Positive [facility] Comment on above: Order Comment: Speci men Type: BLOOD SPECIMENOrdering Facility: [facility] Address: [address] [place] [address] Result Comment: The result suggests recent or past exposure to Rubella virus or history of Rubella vaccination. Positive result may also be seen due to presence of passively-transferred antibodies. Please correlate with patient's history. Performed By: #### G BPCR #### [facility] CLIA [id number] [address] [place] [address] [place] Reagin and Treponema pallidu m IgG and IgM [Interp]on 03-31-2024 T. pallidum IgG+IgM IA Ql (S) Non-Reactive Normal Nonreactive [facility] Comment on above: Order Comment: Speci men Type: BLOOD SPECIMENOrdering Facility: [facility] Address: [address] [place] [address] Performed By: #### 5 195-3, 40102-6, 27278-9 ####[facility] LABCLIA [id number] [place] [address] [place] Reagin+T pallidum IgG+IgM Se rPl-Impon 03-31-2024 Reagin and Treponema pallidum IgG and IgM [Interp] Cannot exclude recent Treponemal infection if specimen collected within 7-10 days after appearance of suspect lesions or 2-3 weeks after an exposure. Clinical correlation is required. Normal [facility] Comment on above: Order Comment: Speci men Type: BLOOD SPECIMENOrdering Facility: [facility] Address: [address] [place] [address] Performed By: #### 5 195-3, 23247-6, 86419-0 ####[facility] LABCLIA [id number] [place] [address] [place] TYPE + SCREEN PRENATALon ABO A Normal [facility] Comment on above: Order Comment: Speci men Type: BLOOD SPECIMENOrdering Facility: [facility] Address: [address] [place] [address] Performed By: #### T SPN ####[facility]CLIA [id number] [place] [address] [place] Rh Nom (Bld) Negative Normal [facility] Comment on above: Order Comment: Speci men Type: BLOOD SPECIMENOrdering Facility: [facility] Address: [address] [place] [address] Performed By: #### T SPN ####[facility] BANKCLIA [id number] [place] [address] [place] TYPE AND SCREEN EXPIRATION 04/03/2024 23:59 Normal [facility] Comment on above: Order Comment: Speci men Type: BLOOD SPECIMENOrdering Facility: [facility] Address: [address] [place] [address] Performed By: #### T SPN ####[facility] BANKCLIA [id number] [facility] [address] [facility] CNPNon 03-03-2024 CNPN Telephone (OGFVWE) -- LOUANN CLEMENTS ([id number]) 1995 F Date Time Provider Department 03/03/24 ELVIA GILMORE OGFVWE During your visit today, we recorded the following information about you: Elvia Gilmore RN 03/03/2024 11:27 AM Signed 1st risk assessment form submitted 03/03/2024. 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 - PNV#24/iron aa kay/folic acid (COMPLETE ORAL) Take 3 Pieces of gum by mouth once daily. 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] 03/02/2024 Encounter Status:Closed by ELVIA GILMORE on 03/03/24 Normal [facility] BACTERIAL VAGINOSIS NAATon 0 03-02-2024 Lactobacillus crispatus+gasseri+deloris enii + Gardnerella vaginalis + Atopobium vaginae rRNA JOSE+probe Ql (Vag fld) Not detected Normal Not detected [facility] Comment on above: Order Comment: Speci men Type: SWABOrdering Facility: [facility] Address: [address] [place] [address] Performed By: #### C VTV, BVAMP ####[facility] LABCLIA [id number] [place] [address] [place] Bacteria Ur Culton Bacteria identified Cx Nom (U) ORGANISM ID: 1 <10,000 CFU/ml Normal urogenital camila Normal [facility] Comment on above: Performed By: #### 6 30-4 #### [facility] CLIA [id number] [address] [place] [address] [place] C. trachomatis+N. gonorrhoea e DNA JOSE+probe Ql (Unsp spec)on 03-02-2024 C. trachomatis rRNA JOSE+probe Ql (Unsp spec) Not detected Normal Not detected [facility] Comment on above: Order Comment: Speci men Type: SWABOrdering Facility: [facility] Address: [address] [place] [address] Performed By: #### G BPCR #### [facility] CLIA [id number] [address] [place] [address] [place] N. gonorrhoeae rRNA JOSE+probe Ql (Unsp spec) Not detected Normal Not detected [facility] Comment on above: Order Comment: Speci men Type: SWABOrdering Facility: [facility] Address: [address] [place] [address] Performed By: #### G BPCR #### [facility] CLIA [id number] [address] [place] [address] [place] NORMAN/TRICHOMONAS NAATon 0 03-02-2024 C. glabrata RNA JOSE+probe Ql (Vag fld) Not detected Normal Not detected [facility] Comment on above: Order Comment: Speci men Type: SWABOrdering Facility: [facility] Address: [address] [place] [address] Performed By: #### G BPCR #### [facility] CLIA [id number] [address] [place] [address] [place] Norman sp DNA JOSE+probe Ql (Vag fld) Not detected Normal Not detected [facility] Comment on above: Order Comment: Speci men Type: SWABOrdering Facility: [facility] Address: [address] [place] [address] Result Comment: The Norman species group target includes C. albicans, C. tropicalis, C. parapsilosis, and C. dubliniensis. Performed By: #### G BPCR #### [facility] CLIA [id number] [address] [place] [address] [place] T. vaginalis DNA JOSE+probe Ql (Unsp spec) Not detected Normal Not detected [facility] Comment on above: Order Comment: Speci men Type: SWABOrdering Facility: [facility] Address: [address] [place] [address] Performed By: #### G BPCR #### [facility] CLIA [id number] [address] [place] [address] [place] POC SNELLER HAND ULTRASOUNDon 03-02-19 Indication Viability; confirm cardiac activity Impression Single intrauterine gestational sac, CRL is appropriate for clinical dates, corresponding to DENISE 10/11/24 cardiac activity is visualized Recommendations Follow up for NT scan if desired Method Transabdominal and transvaginal ultrasound examination Johnson . Number of embryos: 1 Dating LMP on: 01/05/2024 GA by LMP 8 w + 1 d DENISE by LMP: 10/11/2024 Ultrasound examination on: 03/02/2024 GA by U/S based upon: CRL GA by U/S 8 w + 5 d DENISE by U/S: 10/07/2024 Assigned: based on the LMP, selected on 03/02/2024 Assigned GA 8 w + 1 d Assigned DENISE: 10/11/2024 Biometry Standard FHR 171 bpm CRL 20.8 mm 8w 5d >99% Hadlock Assessment Gestational sac: visualized Location: intrauterine Yolk sac: visualized Embryo: visualized CRL 20.8 mm 8w 5d >99% Hadlock Cardiac activity: present FHR 171 bpm General Evaluation Cardiac activity present. FHR 171 bpm Performed By: Christiane Guallpa CNM Read By: Christiane Guallpa CNM MATERNAL MEDICINE [facility] Radiology Study observation (narrative) [facility] US Pelvison 11-15-2023 Indication Dyspareunia Impression Normal appearing retroflexed uterus that measures 77 mm x 42 mm x 52 mm. Endometrium measures 4.3 mm. Normal endometrial contour. Normal appearing left ovary with follicular change. Right ovary contains a 13 x 10 x 10 mm hemorrhagic cyst with reticular pattern/clot. No adnexal masses were observed. There is free fluid visualized in the peritoneal cavity. Recommendations O-RADS 2 right ovarian lesion, non-simple cyst, almost certainly benign. No follow up imaging is needed. Menstrual History LMP on 11/15/2023. Cycle: regular cycle. Contraception: none Method Transabdominal, transvaginal, 3D ultrasound examination, Color Doppler examination. View: Adequate visualization Uterus Uterus: Visualized Uterus position: retroflexed Description of uterine malformations: none Myometrium: normal Endometrium: normal Cervix details: normal Uterus length 77 mm Uterus width 52 mm Uterus height 42 mm Uterus Vol 87.3 cm Endometrial thickness, total 4.3 mm Fibroids: No fibroids identified Polyps: No polyps identified Right Ovary Rt ovary: Visualized Rt ovary D1 37 mm Rt ovary D2 16 mm Rt ovary D3 14 mm Rt ovary Vol 4.2 cm Rt ovarian cyst D1 13 mm Rt ovarian cyst D2 10 mm Rt ovarian cyst D3 10 mm Rt ovarian cyst mean 11.0 mm Rt ovarian cyst vol 0.681 cm Rt ovarian cyst findings: Hemorrhagic cyst with reticular pattern/clot Left Ovary Lt ovary: Visualized Lt ovary morphology: premenopausal normal follicular Lt ovary D1 38 mm Lt ovary D2 22 mm Lt ovary D3 17 mm Lt ovary Vol 7.4 cm Cul de Sac Visualized. free fluid visualized Largest pool 11.1 mm x 26.1 mm x 18.6 mm. Vol 2.821 ml Performed By: Sintia Stephens RDMS Read By: Sherrie Chaudhry M.D. 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 Louann is a 28 year old who presents for an annual gynecologic exam. Reports recent pelvic pain with intercourse. Holden like her partner hit something and then had pain for ~ 5 minutes. 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 Menses: cycles every 30 days and 6 days of flow. Contraception: condoms and withdrawal HPV vaccine: Yes Last Pap: 05/01/2022 normal HPV: N/A History of abnormal pap: No Last mammogram: never Sexually active: Yes History of STDS: None Patient concerns for STD exposure: No. 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 LMP: 10/22/2023, Having periods Age at Menarche: Age at First : Age at Menopause: Sales Financial Analyst History Comments: Sexual Activity: Yes; Male Contraception: Condom PAST MEDICAL HISTORY Diagnosis Date Abdominal pain, lower 11/2018 with leukocytosis Benign paroxysmal positional vertigo pt reported Concussion 03/2012 Fracture of vertebra 12/2012 Dr Mendoza (lumbar) NEGATIVE MEDICAL HISTORY normal color vision PMH - PAST MEDICAL HISTORY OF twin - Twin B PAST SURGICAL HISTORY Procedure Laterality Date APPENDECTOMY 12/11/2018 INJECTION 05/24/2017 spine FAMILY HISTORY Problem Relation Age of Onset other (endomtriosis) Mother No Known Problems Father No Known Problems Sister No Known Problems Brother Cervical Cancer Maternal Grandmother No Known Problems Maternal Grandfather No Known Problems Paternal Grandmother No Known Problems Paternal Grandfather None Other SOCIAL HISTORY Social History Tobacco Use Smoking status: Never Smokeless tobacco: Never Vaping Use Vaping status: Never Used Substance Use Topics Alcohol use: No Drug use: No REVIEW OF SYSTEMS Abdomen: No abdominal pain, nausea, vomiting, diarrhea, or constipation. No bloating, early satiety, indigestion, or increased flatulence. Bladder: No dysuria, gross hematuria, urinary frequency, urinary urgency, or incontinence. Breast: No breast lumps, nipple d/c, overlying skin changes, redness or skin retraction. Allergies and current medication updated:Yes SENSITIVE EXAM: The sensitive examination was discussed with the Patient or Patient's Authorized Filler Sifter Helper. As applicable, any other physician, advance practice provider, medical student, or other health professional student that will be observing or involved in the sensitive examination for educational or training purposes was discussed with the Patient or Authorized Filler Sifter Helper. The Patient or Authorized Filler Sifter Helper has agreed to proceed with the sensitive examination. (Sensitive examination includes inspection and/or palpation of the breasts, pelvis, prostate and anorectal regions). EXAM: BP 98/60 Ht 5' 3.78 (1.62m) Wt 156 lb 12.8 oz (71.1kg) LMP 10/22/2023 BMI 27.10 kg/(m2). GENERAL: pleasant, female in no apparent distress HEENT: Normocephalic, atraumatic, mucus membranes moist, and no lesions NECK: Supple, full range of motion, no adenopathy, and thyroid normal DERMATOLOGY: Normal, without lesions, non-icteric, and non-hirsute BREAST: soft, non-tender, symmetric, no dominant mass, normal nipple-areolar complex, no lymphadenopathy, and no nipple discharge + fibrocystic bilaterally CHEST: Normal inspiratory effort ABDOMEN: soft, non-tender, and no masses PELVIC: external genitalia normal, normal Bartholin's glands, urethra, [place]'s glands, no vulvar lesions, no cervical lesions, good vaginal support, physiologic discharge present, normal appearing perineal body and perianal region BIMANUAL: uterus normal size, shape and consistency, no adnexal masses, and non-tender RECTOVAGINAL: deferred. NEURO: alert and oriented x3,exam grossly non-focal EXTREMITIES: normal ASSESSMENT/PLAN: 1) Health maintenance: Pap/HPV up to date 2022. Deferred until 2025. Nutrition, exercise and routine health maintenance exams reviewed. HPV vaccine: completed series 2) Contraception: condoms and withdrawal. 3) STD screening: Declined STD check. 4) Follow up one year or sooner as needed Dyspareunia in female - ICD9: 625.0, ICD10: N94.10 - Suspect ovarian cyst that may have ruptured based off short duration of pain - Ultrasound ordered - PELVIC US WHI MICHAEL Roman Emily, APRN.CNP 11/07/2023 3:30 PM Signed Fibrocystic breast change is a common benign condition that ca (more content not included)... Normal [facility] Echo Completeon 09-18-2023 Echo Complete [facility] [address] [place] [address] Echo Complete 09/18/23 1320 MR#: [id number] Acct: [id number] Name: LOUANN CLEMENTS Rep #: [id number] : 1995 28 From: Carlo Mao MD Attending Dr: Dr. Carlo Mao MD Status: ELIS MEZA Ordering Dr: Carlo Mao MD Date: 09/18/23 Location: [facility] Sex: F C Admitted: Reason For Study: PALPITATIONS Procedure This was a 2D Doppler, Color Flow transthoracic echocardiogram. Exam performed in department. Left Ventricle Normal LV size. Left ventricular systolic function is normal. The left ventricular ejection fraction is 60 %. No regional wall motion abnormalities noted. Right Ventricle Normal RV size. Normal systolic function. Atria Normal left atrium. Normal right atrium. Mitral Valve Normal mitral valve. Tricuspid Valve Normal tricuspid valve. Aortic Valve Normal aortic valve. Trisinus/trileaflet aortic valve. Pulmonic Valve Normal pulmonic valve. Great Vessels Normal aortic root. The pulmonary artery is normal size. Normal inferior vena cava. Pericardium/Pleural No pericardial effusion. MMode/2D Measurements Calculations LVIDd: 4.4 cm IVSd: 0.86 cm LVOT diam: 1.8 cm LVIDs: 2.3 cm LVPWd: 0.76 cm LVOT area: 2.7 cm2 RVDd: 3.6 cm FS: 46.9 % ___ Ao root diam: 2.5 cm LAV(MOD-bp): 42.4 ml LVAd ap4: 24.7 cm2 LAV(MOD-bp) Indexed: 24.8 ml/m2 LVLd ap4: 7.8 cm LAV(MOD-sp2): 35.5 ml EDV(MOD-sp4): 65.3 ml LAV(MOD-sp4): 45.4 ml EDV(sp4-el): 66.6 ml LVAs ap4: 11.0 cm2 LVLs ap4: 6.1 cm ESV(MOD-sp4): 18.2 ml ESV(sp4-el): 16.7 ml EF(MOD-sp4): 72.2 % EF(sp4-el): 75.0 % ___ LVAd ap2: 27.4 cm2 SV(MOD-sp4): 47.1 ml SV(MOD-sp2): 57.5 ml LVLd ap2: 8.0 cm EDV(MOD-sp2): 76.6 ml EDV(sp2-el): 79.1 ml LVAs ap2: 11.4 cm2 LVLs ap2: 6.0 cm ESV(MOD-sp2): 19.1 ml ESV(sp2-el): 18.3 ml EF(MOD-sp2): 75.1 % ___ SV(sp4-el): 49.9 ml LA dimension(2D): 3.0 cm LA A4 area: 17.1 cm2 ___ RA A4 area: 13.4 cm2 TAPSE: 2.5 cm Time Measurements MV dec time: 0.17 sec Doppler Measurements Calculations MV E max loretta: 105.5 cm/sec Lat Peak E' Loretta: 19.6 cm/sec Med Peak E' Loretta: 15.9 cm/sec MV A max loretta: 42.7 cm/sec E/E' lat: 5.4 E/E' med: 6.6 MV E/A: 2.5 ___ Ao V2 max: 158.5 cm/sec LV V1 max: 140.1 cm/sec MV dec slope: 635.2 cm/sec2 Ao max P.0 mmHg LV V1 max P.8 mmHg Ao V2 mean: 114.7 cm/sec LV V1 mean P.3 mmHg Ao mean P.8 mmHg LV V1 mean: 97.4 cm/sec Ao V2 VTI: 32.4 cm LV V1 VTI: 28.9 cm AV (velocity ratio): 0.89 MARY(I,D): 2.4 cm2 MARY(V,D): 2.4 cm2 ___ SV(LVOT): 77.0 ml PA V2 max: 104.3 cm/sec TR max loretta: 226.0 cm/sec PA max PG (full): 1.3 mmHg TR max P.4 mmHg ECHO/Echo Complete Interpretation Summary Normal LV size. Left ventricular systolic function is normal. The left ventricular ejection fraction is 60 %. Structurally normal valves. Ordering Physician: Carlo Mao Referring Physician: Carlo Mao MD Performed By: Hellen Lala, MITCH 09/18/23 1444 Date Carlo Mao MD CC: Dr. Sera Scott MD; Dr. 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 [address] 12 Lead EKG performed by [facility] 08/28/23 1321 MR#: [id number] Acct: [id number] Name: LOUANN CLEMENTS Rep #: [id number] : 1995 28 From: Carlo Mao MD Attending Dr: Dr. Carlo Mao MD Status: DEP A MB Ordering Dr: Carlo Mao MD Date: 08/28/23 Location: [facility] Sex: F C Admitted: BMS/12 Lead EKG performed by [facility] ECG Report Interpretation Sinus Rhythm - Negative precordial T-waves -Normal for age. PROBABLY NORMAL FOR AGEElectronically signed on 09/02/2023 at 13:24 by Carlo Mao [employer] Version [id number] 09/02/231324 Date Carlo Mao MD CC: Dr. Sera Scott MD Date Dictated: 08/28/231320 Date Transcribed: 08/28/231320 Brazing Furnace Operator: CO Signed Normal [facility] Cardiology Visit Reporton Cardiology Visit Report [facility] [address] [place] [address] OFFICE VISIT Date of Service: 08/28/23 MR#: [id number] Acct: [id number] Name: LOUANN CLEMENTS Rep #: [id number] : 1995 Provider: Dr. Carlo Mao MD Age/Sex: 28/F Location: [facility] Status: Signed HPI [facility] History of Present Illness Details: 28-year-old lady with no previous cardiac history who has been complaining of palpitations and chest fluttering. She does have some shortness of breath with these palpitations. She does not drink a significant amount of caffeinated beverages and does not smoke or use any drugs. She thinks that she has mild anxiety but otherwise has not had any major issues. She decided to see cardiology for further evaluation and management. She has had blood work including hemoglobin electrolytes which are normal as well as TSH and T3 and T4 which have all been normal. Her physical exam here is unremarkable her electrocardiogram demonstrates sinus rhythm with a rate of 68 bpm. 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: No Accompanied by: Self Is patient in pain?: No Allergies pumpkin Allergy (Verified 08/28/23 13:51) Hives Medications ???Medication ???Instructions ???Recorded ???Confirmed ???Type duloxetine 30 mg capsule,delayed 30 mg PO DAILY 06/25/23 08/28/23 History release meclizine 25 mg tablet 25 mg PO 4X/DAY PRN PRN Dizziness 07/21/23 08/28/23 Rx #20 tabs ondansetron 4 mg disintegrating 4 mg PO Q6H PRN nausea and 07/21/23 08/28/23 Rx tablet vomiting #10 tabs Have you fallen in the past year?: No PFSH Medical History Pars defect of lumbar spine Hx of concussion Anxiety Palpitations Tachycardia Ovarian cyst Chronic back pain Surgical History History of removal of ovarian cyst Hx of appendectomy Family History Mother Endometriosis Social History Smoking Status: Never smoker ROS Const Const: Negative for fatigue, weakness, headache(s), daytime sleepiness or difficulty sleeping ENT ENT: Negative for headache(s), dizziness or Nosebleed/epistaxis Cardio Chest Pain: No Palpitations: Yes (fluttering) Edema: None Resp Respiratory: Positive for SOB with activity (with palps); Negative for SOB at rest, SOB orthopnea SOB lying down or Cough GI GI: Negative nausea, vomiting or heartburn Neuro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 brought with her as well. Louann is a delightful young lady 27 years old. She has an identical twin that works at the hospital in surgery but I know very well. Her sister sent her here for me to evaluate her back. Mentioned above she has had back pain for 10 years literally. She recalls when she was in the eighth grade playing basketball she felt a pop in her back and felt immediate low back pain. She has basically been in pain all that time. Sometimes it flares up for a day or 2 and the pain can be a 9/10 in severity when it does but other times is significantly less but it bothers her every day and she always knows that it is there. She had an MRI scan done 6 years ago. The pain that she gets in her legs is not really radicular in nature is the kind that 1 gets with instability of the lumbar spine. On examination she has pain with extension and flexion of her lumbar spine. He has excellent motor strength of all the major muscle groups of both lower extremities. She has no muscle atrophy. She has physiologic patella Achilles and posterior tibialis reflexes bilaterally. She has no long tract signs. Clonus is absent and Babinski's are downgoing. Plain x-rays taken in my office demonstrate that she has pars defects of the L4 vertebra. She has a very slight listhesis L4 on 5. I looked at the MRI scan from 6 years ago and on it I cannot say that I could see the pars defect however she does have a protrusion even then of the 4 5 disc probably due to the instability. Since her pain gets so bad sometimes I think it would be reasonable to proceed with an MRI scan of the lumbar spine and compare with the MRI s (more content not included)... Normal [facility] No Panel Informationon 08-08 [facility] Absolute lymphocyte countOrd ered By: Dr. Lambert on 07-25-2022 Lymphocytes Auto (Unsp spec) [#/Vol] 3.98 10*3/uL 0.83-4.51 [facility] Basophil percentageOrdered B y: Dr. Lambert on 07-25-2022 Basophil percentage 0 SEEN /hpf 0-5 [facility] Basophils/100 WBC (Bld) 0.5 % 0-1 [facility] Chloride [Moles/Vol] 109 mmol/L 98-107 [facility] Eosinophils/100 WBC (Bld) 1.5 % 0-5 [facility] Glucose [Mass/Vol] 92 mg/dL 74-106 [facility] Neutrophils (Bld) [#/Vol] 2.8 10*3/uL 2.0-7.7 [facility] Neutrophils/100 WBC (Bld) 37.8 % 47-70 [facility] Potassium [Moles/Vol] 3.8 mmol/L 3.5-5.1 [facility] Sodium [Moles/Vol] 140 mmol/L 136-145 [facility] WBC (Bld) [#/Vol] 7.4 10*3/uL 4.4-11.0 [facility] Bilirubin Test strip Ql (U)O rdered By: Dr. Lambert on 07-25-2022 Bilirubin Ql (U) Negative Negative [facility] Blood erythrocytes count (nu mber/volume)Ordered By: Dr. Lambert on 07-25-2022 RBC (Bld) [#/Vol] 3.98 10*6/uL 4.2-5.4 [facility] Blood hemoglobin measurement (mass/volume)Ordered By: Dr. Lambert on 07-25-2022 Hemoglobin (Bld) [Mass/Vol] 12.3 g/dL 12.0-15.0 [facility] Blood lymphocytes/100 leukoc ytesOrdered By: Dr. Lambert on 07-25-2022 Lymphocytes/100 WBC (Bld) 53.9 % 19-41 [facility] Blood monocytes/100 leukocyt esOrdered By: Dr. Lambert on 07-25-2022 Monocytes/100 WBC (Bld) 6.0 % 0-10 [facility] Blood platelet mean volumeOr dered By: Dr. Lambert on 07-25-2022 Platelet mean volume (Bld) [Entitic vol] 11.3 fL 6.2-12.0 [facility] Determination of erythrocyte mean corpuscular volume (MCV)Ordered By: Dr. Lambert on 07-25-2022 MCV (RBC) [Entitic vol] 93.0 fL 81-99 [facility] Hematocrit Auto (Bld) [Volum e fraction]Ordered By: Dr. Lambert on 07-25-2022 Hematocrit (Bld) [Volume fraction] 37.0 % 37-47 [facility] Ketones Test strip Ql (U)Ord ered By: Dr. Lambert on 07-25-2022 Ketones Ql (U) Negative Negative [facility] Laboratory - Chemistry and C hemistry - challengeOrdered By: Dr. Lambert on 07-25-2022 CO2 [Moles/Vol] 26.0 mmol/L 21.0-32.0 [facility] HCG ( test) Ql (U) Negative [facility] Comment on above: Very dilute urine sp ecimens, as indicated by a low specificgravity, may not contain pharmacy services representative levels of hCG. If is still suspected, a first morning urinespecimen should be collected 48 hours later and tested. Urea nitrogen/Creatinine [Mass ratio] 9.7 mg/mg 10-20 [facility] Laboratory - Hematology and Cell countsOrdered By: Dr. Lambert on 07-25-2022 Erythrocyte distribution width (RBC) [Entitic vol] 41.2 fL 35.1-43.9 [facility] Erythrocyte distribution width (RBC) [Ratio] 11.9 % 11.6-14.6 [facility] Immature granulocytes/100 WBC (Bld) 0.300 % 0.0-0.9 [facility] Comment on above: IG% - Immature Granu locytes (promyelocytes, myelocytes and metamyelocytes) > 1% indicates that a LEFT SHIFT is Present. MCH (RBC) [Entitic mass] 30.9 pg 27.0-32.0 [facility] Nucleated RBC/100 WBC (Bld) [Ratio] 0 % 0-5 [facility] MCHC Auto (RBC) [Mass/Vol]Or dered By: Dr. Lambert on 07-25-2022 MCHC (RBC) [Mass/Vol] 33.2 g/dL 32-36 [facility] Mucus LM Ql (Urine sed)Order ed By: Dr. Lambert on 07-25-2022 Mucus Ql (Urine sed) 0 SEEN /hpf [facility] Nitrite Test strip Ql (U)Ord ered By: Dr. Lambert on 07-25-2022 Nitrite Ql (U) Negative Negative [facility] No Panel InformationOrdered By: Dr. Lambert on 07-25-2022 Estimated Creatinine Clearance Calc 85.71 ml/min [facility] Estimated GFR (MDRD) Amer 108 mL/min >60 [facility] Comment on above: GFR Calc Estimated GFR (MDRD) Non-Af Amer 89 mL/min >60 [facility] Comment on above: Non- GFR Calc Platelets bldOrdered By: Dr. Lambert on 07-25-2022 Platelets (Bld) [#/Vol] 247 10*3/uL 150-450 [facility] Protein Test strip Ql (U)Ord ered By: Dr. Lambert on 07-25-2022 Protein Ql (U) Negative Negative [facility] Serum or plasma calcium peña urement (mass/volume)Ordered By: Dr. Lambert on 07-25-2022 Calcium [Mass/Vol] 8.9 mg/dL 8.5-10.1 [facility] Serum or plasma creatinine m easurement (mass/volume)Ordered By: Dr. Lambert on 07-25-2022 Creatinine [Mass/Vol] 0.83 mg/dL 0.55-1.02 [facility] Comment on above: The validity of the calculated GFR & GFRAA in patients over 70 years has not been determined. Clinical correlation is essential. Serum or plasma urea nitroge n measurement (mass/volume)Ordered By: Dr. Lambert on 07-25-2022 Urea nitrogen [Mass/Vol] 8 mg/dL 7-18 [facility] Squamous epithelial cells de tection in urine sediment by light microscopyOrdered By: Dr. Lambert on 07-25-2022 Epithelial cells.squamous LM Ql (Urine sed) 0-5 SEEN /hpf 5-10 [facility] Thin prep Papanicolaou smear with manual screeningOrdered By: Dr. Lambert on 07-25-2022 Thin prep Papanicolaou smear with manual screening 5 5-15 [facility] Urine blood detectionOrdered By: Dr. Lambert on 07-25-2022 RBC Ql (U) Negative Negative [facility] RBC Ql (U) 0 SEEN /hpf 0-5 [facility] Urine clarityOrdered By: Dr. Lambert on 07-25-2022 Clarity (U) Clear Clear [facility] Urine color determinationOrd ered By: Dr. Lambert on 07-25-2022 Color (U) Yellow Yellow [facility] Urine glucose detectionOrder ed By: Dr. Lambert on 07-25-2022 Glucose Ql (U) Normal mg/dl Normal [facility] Urine leukocyte esterase det ection by dipstickOrdered By: Dr. Lambert on 07-25-2022 Leukocyte esterase Test strip Ql (U) 25 /ul Negative [facility] Urine pHOrdered By: Dr. Ashleigh butler on 07-25-2022 pH (U) 6.5 [pH] 5.0 - 8.0 [facility] Urine sediment bacteria coun t by microscopy (number/high power field)Ordered By: Dr. Lambert on 07-25-2022 Bacteria LM.HPF (Urine sed) [#/Area] 0 /[HPF] None Seen [facility] Urine specific gravity measu rementOrdered By: Dr. Lambert on 07-25-2022 Specific gravity (U) [Rel density] 1.010 1.002-1.030 [facility] Urobilinogen Auto test strip Ql (U)Ordered By: Dr. Lambert on 07-25-2022 Urobilinogen Ql (U) Normal mg/dl Normal [facility] XR WRIST GENERAL 3V PA/LAT/O BL RIGHTon 12-21-2021 [facility] XR Wrist - right PA and Late ral and Obliqueon 12-21-2021 IMPRESSION: No acute abnormality. [employer] Operator[facility] Transcribe Date/Time: Dec 21 2021 4:43P Dictated by : AMENA SETH MD This examination was interpreted and the report reviewed and electronically signed by: AMENA SETH MD on Dec 21 2021 4:43PM [facility] DIVISION OF RADIOLOGY * * *Final Report* * * DATE OF EXAM: Dec 21 2021 4:37PM WOX 5271 - XR WRIST 3V PA/LAT/OBL RT / PROCEDURE REASON: Right wrist pain * * * * Physician Interpretation * * * * PROCEDURE: Right wrist INDICATION: Right wrist pain .right wrist pain, no known injury TECHNIQUE: XR WRIST 3V PA/LAT/OBL RT COMPARISON: None FINDINGS: No acute fracture or dislocation. Joint spaces are maintained. No erosions or focal soft tissue swelling. Ulnar minus variant. DIVISION OF RADIOLOGY Provider, [facility] - 12/21/2021 * * *Final Report* * * DATE OF EXAM: Dec 21 2021 4:37PM WOX 5271 - XR WRIST 3V PA/LAT/OBL RT / PROCEDURE REASON: Right wrist pain * * * * Physician Interpretation * * * * PROCEDURE: Right wrist INDICATION: Right wrist pain .right wrist pain, no known injury TECHNIQUE: XR WRIST 3V PA/LAT/OBL RT COMPARISON: None FINDINGS: No acute fracture or dislocation. Joint spaces are maintained. No erosions or focal soft tissue swelling. Ulnar minus variant. IMPRESSION IMPRESSION: No acute abnormality. [employer] Operator: [facility] Transcribe Date/Time: Dec 21 2021 4:43P Dictated by : AMENA SETH MD This examination was interpreted and the report reviewed and electronically signed by: AMENA SETH MD on Dec 21 2021 4:43PM EST [facility] Radiology Study observation (narrative) [facility] XR Wrist - right PA and Late ral and ObliqueOrdered By: [facility] Provider on 12-21-2021 [facility] STREP A MOLECULAR (POC)on Procedural Control Valid [facility] Strep A (POCT) Negative Negative [facility] STREP A MOLECULAR (POC)on Procedural Control Valid [facility] Strep A (POCT) Negative Negative [facility] CR Spine Lumbosacral 4+ View son 12-12-2017 CR Spine Lumbosacral 4+ Views Patient Name: LOUANN CLEMENTS Diagnostic Radiology Exam Date/Time 12/12/2017 10:05:14 EDT Exam CR Spine Lumbosacral 4+ Views Ordering Physician MD JONAS ADAM Accession Number [id number] CPT4 Codes 15083 () Reason For Exam spondylolysis Report Clinical indications: Spondylolysis FINDINGS: Flexion and extension laterals and bilateral oblique images are performed. Correlation is made with a previous, outside, five view exam performed on the same date. Bilateral pars defects are identified at L4. There is no instability in flexion or extension. 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 Report Dictated on Final Dictated: 12/12/2017 10:22 am Dictating Physician: MD JOHN RUSSELL Signed Date and Time: 12/12/2017 10:30 am Signed by: MD JOHN RUSSELL Transcribed Date and Time: 12/12/2017 10:22 Normal [facility] ED Provider Noteon 8 Protein mass conc Triage Chief Complai nt:Leg Pain (left leg pain. Patient heard popping sound and unable to ambulated.Transfered from [place].)[place]:Louann Clements is a 22 y.o. female who presents to the emergency departmentcomplaining of back pain that began suddenly last night while she was getting upfrom the couch. She felt a pop and felt immediate pain in her lower back whichradiates down the lateral aspect of her left thigh. She describes the pain as asharp, stabbing sensation and she rates the severity at 8/10 currently. She hasa past medical history significant for chronic back pain and sciatica secondaryto spondylolithesis and herniated disc for which she receives injectionshowever she states that the pain is worse than ever before. She initiallypresented to [facility] ED where labs and xrays were obtained. 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 She denies fevers, SOB, chest pain, abdominalpain, nausea, vomiting, saddle anesthesia, urinary/fecal incontinence/retention,foc al weakness, numbness and paresthesias.ROS:At least 10 systems reviewed and otherwise acutely negative except as in theHOPI.History reviewed. No pertinent past medical history.History reviewed. No pertinent surgical history.History reviewed. No pertinent family history.Social HistorySocial History? Marital status: Single Spouse name: N/A? Number of children: N/A? Years of education: N/AOccupational History? Not on file.Social History Main Topics? Smoking status: Never Smoker? Smokeless tobacco: Never Used? Alcohol use No? Drug use: Unknown? Sexual activity: Not on fileOther Topics Concern? Not on fileSocial History Narrative? No narrative on fileNo current facility-administered medications for this encounter.No current outpatient prescriptions on file.No Known AllergiesNursing Notes ReviewedPhysical Exam:ED Triage Vitals [12/12/17 0555]Enc Vitals Group BP 113/67 Pulse 53 Resp 16 Temp 98.1 ?F (36.7 ?C) Temp Source Oral SpO2 100 % Weight 135 lb (61.2 kg) Height 5' 3 (1.6 m) Head Circumference Peak Flow Pain Score Pain Loc Pain Edu? Excl. in GC?GENERAL APPEARANCE: Awake and alert, resting comfortably in bed at the time ofmy exam.HEENT: Head is normocephalic and grossly atraumatic.NECK: Trachea is midline.LUNGS: Clear to auscultation bilaterally without wheezing or rales. Goodairflow.HEART: Regular rate and rhythm. S1-S2 noted. No murmurs auscultated.ABDOMEN: Abdomen was soft and nondistended. There was no tenderness topalpation. There is no guarding or rebound.MSK/EXTREMITIES: BACK: The entire spine was palpated and is tender to palpationin the lumbar region. No stepoffs or deformities noted. Skin overlying is intactand atraumatic. There is no paraspinal soft tissue tenderness to palpation.EHL/FHL bl is intact with 5/5 bl lower extremity strength. Normal sensory motorexam. 2+ normal bilateral DTRs LEs. Straight leg test is negative on the RIGHT,positive on the LEFT.SKIN: Warm and dry.NEUROLOGICAL: Patient is awake, alert and oriented with normal speech and normalhearing. Patient is responding and cooperating appropriately to exam. Face issymmetrical.PSYCHIATRIC: Normal mood and affect. Good judgement.I have reviewed and interpreted all of the currently available lab results fromthis visit (if applicable):Results for orders placed or performed during the hospital encounter of 12/12/17Pregnancy, UrineResult Value Ref Range HCG Urine Negative Negative NAProtime-INRResult Value Ref Range Protime 10.3 9.0 - 12.0 s INR 1.0 0.9 - 1.1 NARadiographs:No results found.MDM:Based on the above history and physical exam, I believe that the patient is mostlikely experiencing an acute exacerbation of chronic back pain and sciatica,however I am concerned about worsening herniation. She is neurovascularlyintact, therefore no acute intervention is necessary at this time. Labs andimaging were reviewed from the outside hospital which are within normal limits.The orthopedic surgery service was consulted as they accepted the patient fortransfer. She was given a dose of percocet for pain.Orthopedic surgery recommendations are pending at this time.I have signed out Louanngrant Clements's Emergency Department care to Dr. Sharma. Wediscussed the pertinent history, physical exam, completed/pending test results(if applicable) and current treatment plan. Please refer to his/her chart forthe patients remaining Emergency Department course and final disposition.Clinical Impression:Acute exacerbation of lower back pain with left sciaticaComment: Please note this report has been produced using speech recognitionsoftware and may contain errors related to that system including errors ingrammar, punctuation, and spelling, as well as words and phrases that may beinappropriate. If there are any questions or concerns please feel free tocontact the dictating provider for clarification.Frances Napier MD12/12/17 1021 [facility] Protein mass conc [facility] EMERGENCY DEPTeMERGENCY dEPARTMENT eNCOUnterPt Name: Louann ClementsMRN: [id number] 1995Date of evaluation: 12/12/2017Provider: Franco Sharma [facility] COMPLAINTChief ComplaintPatient presents with? Leg Pain left leg pain. Patient heard popping sound and unable to ambulated.Transfered from [place].HISTORY OF PRESENT ILLNESS(Location/Symptom, Timing/Onset,Context/Setti ng, Quality, Duration, ModifyingFactors, Severity) Note limiting factors.HPISajohanna Clements is a 22 y.o. female who presents to the emergency department Ptinitially evaluated by Dr. Napier, please see her note for a more complete hx.Pt with chronic low back pain. Has seen PT without improvement for the past 4years. Worse pain. Pain limiting ambulation. See at outside hospital and senthere for orthopedic evaluation.Nursing Notes were reviewed.REVIEW OFSYSTEMS(2+ for level 4; 10+ for level 5)Review of SystemsConstitutional: Negative for chills and fever.HENT: Negative for congestion and rhinorrhea.Eyes: Negative for discharge and redness.Respiratory: Negative for chest tightness and shortness of breath.Cardiovascular: Negative for chest pain and palpitations.Gastrointesti nal: Negative for abdominal pain, diarrhea, nausea and vomiting.Genitourinary: Negative for dysuria and hematuria.Musculoskeletal: Positive for back pain. Negative for arthralgias and jointswelling.Skin: Negative for color change and rash.Neurological: Negative for weakness, light-headedness and headaches. Ambualtion ,imited by pain, no weaknessPsychiatric/Behavi oral: Negative for agitation and behavioral problems.PAST MEDICAL HISTORYHistory reviewed. No pertinent past medical history.SURGICAL HISTORYHistory reviewed. No pertinent surgical history.CURRENT MEDICATIONSDischarge Medication List as of 12/12/2017 2:34 PMALLERGIESPatient has no known allergies.FAMILY HISTORYHistory reviewed. No pertinent family history.SOCIAL HISTORYSocial HistorySocial History? Marital status: Single Spouse name: N/A? Number of children: N/A? Years of education: N/ASocial History Main Topics? Smoking status: Never Smoker? Smokeless tobacco: Never Used? Alcohol use No? Drug use: Unknown? Sexual activity: Not AskedOther Topics Concern? NoneSocial History Narrative? NoneSCREENINGSPHYSICAL EXAM(up to 7 for level 4, 8 or more for level 5)ED Triage Vitals [12/12/17 0555]BP Temp Temp Source Pulse Resp SpO2 Height Uoyvwo636/67 98.1 ?F (36.7 ?C) Oral 53 16 100 % 5' 3 (1.6 m) 135 lb (61.2 kg)Physical ExamConstitutional: She is oriented to person, place, and time. She appearswell-developed and well-nourished. No distress.HENT:Head: Normocephalic and atraumatic.Eyes: Conjunctivae and EOM are normal.Neck: Neck supple. No tracheal deviation present.Cardiovascular: Normal rate and regular rhythm.Pulmonary/Chest: Effort normal. No respiratory distress.Abdominal: Soft. There is no tenderness.Musculoskeletal : Normal range of motion. She exhibits no deformity.TTP Lower right lumbar spine. Normal patella and achiles reflex. Normalsensation.Neurologic al: She is alert and oriented to person, place, and time.Skin: Skin is warm and dry. She is not diaphoretic.DIAGNOSTIC RESULTSEKG (Per Emergency Physician):RADIOLOGY (Per Emergency Physician):Interpretation per the Radiologist below, if available at the time of this note:No results found.ED BEDSIDE ULTRASOUND:Performed by ED Physician - noneLABS:Labs ReviewedPREGNANCY, URINE Narrative: Test Performed by [facility], [facility] [address] [place], [place] [id number] Narrative: Test Performed by [facility], [facility] [address] [place], [place] [address]EMXV AND SCREEN Narrative: Test Performed by [facility], [facility] [address] [place], [place] [address]Hpd other labs were withinnormal range or not returned as of this dictation.EMERGENCY DEPARTMENT COURSE and DIFFERENTIAL DIAGNOSIS/MDM:Vitals:Vital s: 12/12/17 0555 12/12/17 0717 12/12/17 0927 12/12/17 1251BP: 113/67 104/63 96/67 106/70Pulse: 53 67 62 74Resp: 16 16 15Temp: 98.1 ?F (36.7 ?C)TempSrc: OralSpO2: 100% 100% 99% 99%Weight: 61.2 kg (135 lb)Height: 5' 3 (1.6 m)MedicationsoxyCODONE-yoni taminophen (PERCOCET) 5-325 MG per tablet 1 tablet (1 tablet OralGiven 12/12/17 0750)methylPREDNISolone sodium (SOLU-MEDROL) injection 60 mg (60 mg Intravenous Given12/12/17 1437)MDMNumber of Diagnoses or Management OptionsAcute bilateral low back pain with right-sided sciatica:Diagnosis management comments: Back pain, Concern for spinal cord compression.MRI obtained. MRI no cord compression. Orthto Spine evaluated and reccommednedconcervative treatement with PT and PCP FU. DC accordingly. Had longconversation with pt, motther and bokarla. They agree with conservationtreatment and will FU with PCP for a new PT as they feel she has not improvedwith current PT.Amount and/or Complexity of Data ReviewedClinical lab tests: reviewedTests in the radiology section of CPT?: reviewedTests in the medicine section of CPT?: reviewed.REVAL:ED Course as of Dec 16Dec 12 FU Ortho recs [SH]1720 Sinus bradycardia with rate of 56. Normal axis. ST segments within normallimits. Inverted T-wave in lead 3. OK interval QRS interval within normallimits. [SH]ED Course User Index[SH] Farnco Sharma [facility] TIMETotal Critical Care time was 0 minutes, excluding separately reportableprocedures.There was a high probability of clinically significant/life threateningdeterioration in the patient's condition whichrequired my urgent intervention.CONSULTS:None PROCEDURES:Unless otherwise notedbelow, noneProceduresFINAL IMPRESSION1. Acute bilateral low back pain with right-sided sciaticaDISPOSITION/PLANDI SPOSITION Decision To Discharge 12/12/2017 02:33:02 PMPATIENT REFERRED TO:The Emergency DepartmentGo toIf symptoms worsenyour doctorCal[address] [phone] HARGE MEDICATIONS:Discharge Medication List as of 12/12/2017 2:34 PMSTART taking these medications DetailsHYDROcodone-acetami nophen (NORCO) 5-325 MG per tablet Take 1 tablet by mouthevery 6 hours as needed for Pain for up to 3 days. Intended supply: 3 days. Takelowest dose possible to manage pain., Disp-5 tablet, R-0PrintpredniSONE (DELTASONE) 10 MG tablet Take 5 tablets by mouth daily for 3 days,Disp-15 tablet, R-0Printpantoprazole (PROTONIX) 20 MG tablet Take 1 tablet by mouth daily, Disp-30tablet, R-0May substitute any PPI that insurance covers.Print(Please note: Portions of this note were completed with a voice recognitionprogram. Efforts were made to edit the dictations but occasionally words andphrases are mis-transcribed.)Form [id number] Sharma MD (electronically signed)Emergency Medicine ProviderSterry Sharma MD12/16/17 1200 Normal [facility] HCG,Urine Qualon 12-12-2017 HCG.beta subunit ( test) Ql (U) Negative Normal Negative [facility] Comment on above: Result Comment: Preg elton is the most common reason for HCG in urine, althoughchoriocarcinoma, hydatidiform mole, and certain nontropho-blastic malignancies also result in detectable urinary HCGlevels. Sensitivity = 20mIU/mL. Performed By: #### H CGUR ####[facility] [place] [address] MRI Spine Lumbar w/o Contras ton 12-12-2017 MRI Spine Lumbar w/o Contrast Patient Name: LOUANN CLEMENTS MRI Exam Date/Time 12/12/2017 12:28:35 EDT Exam MRI Spine Lumbar w/o Contrast Ordering Physician MD SUMI, VINOD Accession Number [id number] CPT4 Codes 12915 () Reason For Exam SCIATICA, AND/OR RADICULOPATHY, <6WKS Report Clinical indications: Sciatica and radiculopathy FINDINGS: Multiplanar, multisequence imaging of the lumbar spine was performed without gadolinium. There are no prior studies for comparison. Alignment, curvature and segmentation are within normal limits. Five lumbar type vertebral bodies are assumed for the purposes of this dictation. Vertebral body height is maintained. Marrow signal characteristics are unremarkable. The conus medullaris terminates normally at the L1 level. The cauda equina appears intact. There is no evidence of intradural or extradural mass lesion. The T12-L1, L1-L2, L2-L3 and L3-L4 disc spaces appear unremarkable. No protrusions or bulges are seen. There is no central stenosis. There is no lateral recess or foraminal narrowing. There does appear to be a component of developmental shortening of the pedicles present at these levels, along with some mild facet disease and ligamentum flavum hypertrophy. This contributes to low normal central canal dimensions at these levels, somewhat unusual for a patient of this age. L4-L5: There is mild to moderate loss of disc space height and T2 signal. A central disc protrusion is present. Combined with developmental shortening of the pedicles and moderate facet disease, borderline central stenosis is produced by this set of findings. The lateral recesses and foramina remain patent. L5-S1: There is minimal loss of disc space height and signal. A small protrusion is present. There is mild facet disease. There is no central stenosis. The foramina and lateral recesses are patent. 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 There is a central disc protrusion at L4-L5. When combined with developmental shortening of the pedicles and facet disease, this produces borderline central stenosis without evidence of foraminal or lateral recess narrowing. A minimal disc protrusion is present at L5-S1, as noted above. There is no associated central stenosis, foraminal or lateral recess narrowing. Report Dictated on Final Dictated: 12/12/2017 1:29 pm Dictating Physician: MD JOHN RUSSELL Signed Date and Time: 12/12/2017 1:41 pm Signed by: MD JOHN RUSSELL Transcribed Date and Time: 12/12/2017 1:29 Normal [facility] Prothrombin Timeon 8 INR Coag RelTime (PPP) 1.0 Normal 0.9-1.1 [facility] Comment on above: Result Comment: Demetrius mmended Anticoagulant Therapy: SEE BELOW----- INR of 2.0 - 3.0 : - Prophylaxis of Venous Thrombosis (high-risk surgery) - Treatment of Venous Thrombosis - Treatment of Pulmonary Embolism (Includes tissue heart valves, Acute Myocardial Infarction to prevent systemic embolism, Valvular Heart Disease, and Atrial Fibrillation)----- INR of 2.5 - 3.5 : - Mechanical Prosthetic Valves (high risk) - If oral anticoagulant therapy is used to prevent Myocardial Infarction Performed By: #### P T ####[facility] [place] [address] Prothrombin time (PT) Coag time (PPP) 10.3 s Normal 9.0-12.0 [facility] Comment on above: Result Comment: . Performed By: #### P T ####[facility] [address] [place] [address] TS GELon 12-12-2017 TS GEL ABO Group: A Rh, Gel: NEG Antibody Screen Gel: NEG [facility] Comment on above: Performed By: #### T SGL ####[facility] [place] [address] EMERGENCY REPORTon 8 EMERGENCY REPORT [facility] EMERGENCY ROOM REPORT NAME ACCOUNT SEX AGE ADMIT DISCHARGE PT MED. RECORD# NUMBER DATE DATE TYPE DOMINICK [id number] F 08/12/17 08/12/17 3 LOUANN Ravi [id number] ROOM: ER DATE OF : 1995 DICTATING PHYSICIAN: Ozzie Miranda CHIEF COMPLAINT: Passed out. HISTORY OF PRESENT ILLNESS: The patient works at a [employer]. She was brought here by Jinn after she apparently passed out at work. The patient states that she has not felt ill recently. She woke up at her usual time this morning and felt fine. She did eat and drink and went to work. She was working through the morning without any symptoms. She ate and drank. She had walked to another floor to get some cleaning solution and as she was walking back remembers having some sharp pain in her chest. She apparently passed out after that, as she states that is the last thing I remember. The next thing she states she remembers was coming to in the squad on the way here. She does not remember being interviewed by the ambulance personnel at the [employer] or being transferred to the squad. Since the squad ride and her arrival here, she is complaining of some intermittent chest discomfort as well and describes it as a mild pressure with some intermittent sharp pain. She does not feel dizzy or lightheaded. She does not have any shortness of breath or numbness or tingling to the extremities. No nausea or vomiting. She has not had anything like this happen before that she can remember. [facility], and they state that on their arrival to the [employer] she was on the floor but was awake and alert and appropriate. She was talking to them and responding appropriately. She did not appear ill or in any type of distress. Her vitals at the time were good. Her color was good. Her saturations were good. She states that she does not remember any of this, but there was no evidence of any abnormalities since their arrival. PAST MEDICAL HISTORY: Negative for any known medical problems. She was told that she had a heart murmur in the past. PAST SURGICAL HISTORY: She has had previous back problems and has had previous spinal surgery. Otherwise, no other surgeries. MEDICATIONS: She takes no medications. ALLERGIES: She has no allergies. SOCIAL HISTORY: She lives at home. She does not smoke or drink alcohol. She states that she just started her period and denies being . REVIEW OF SYSTEMS: As noted above. No recent injury or trauma. No recent illnesses. No underlying known heart or lung disease, bowel or bladder symptoms, bleeding disorders, or rashes. Page 1 of 2 LOUANN CLEMENTS Emergency Room Report PHYSICAL EXAMINATION: This is a 22-year-old female who is alert and appropriate. She does not appear toxic or in any distress. She responds very appropriately to all questions and commands. Her skin is pink, warm and dry. There is no evidence of any bruises or injuries. HEENT examination is all within normal limits. Neck is supple without adenopathy. Lungs are clear without crackles or wheezes. Cardiac examination is a regular rhythm without any ectopy. She does have a mild systolic murmur heard along the sternal border without any radiation. Abdomen is soft and nontender. She moves all extremities appropriately without any focal weaknesses. No clubbing, cyanosis or edema. She has good peripheral pulses. Good capillary refill. No redness, tenderness or asymmetry. Vital signs: Temperature is 98.6, pulse 68, respirations 14, and blood pressure 119/86. Her oxygen saturation is 96%. DIAGNOSTIC DATA: EKG shows sinus rhythm without any acute abnormalities. I did get a chest x-ray, which was read as negative for any acute abnormalities, basically normal. A number of laboratory studies were obtained and returned showing a CBC that was all normal. PT, PT-INR, and d-dimer were all normal. Lipase was negative. Magnesium was normal. Lactate was 7.8. BNP, troponin, and CRP were all within normal limits. Her CMP was normal. Urinalysis was normal. Urine test was negative. Urine drug screen was negative. EMERGENCY DEPARTMENT COURSE AND TREATMENT: An IV of normal saline was placed. She was given a liter of IV fluids while here. On reexamination about an hour after her arrival, she had complained of some chest discomfort, and on examination then she did seem to have tenderness to the anterior chest wall, mainly to the parasternal area and to the lateral chest wall bilaterally. Otherwise, vital signs remained unchanged. The patient presents with some chest wall pain consistent with costochondritis. She had apparently had a syncopal episode that would be most suspicious for a vagal reaction. No concerning findings on examination or her work-up other than the fact that she seems to have a mild systolic murmur. Her cardiac rhythm here was not at all abnormal. The patient will be discharged to home. I recommend that she does follow up with her family physician within the next several days so she can have further evaluation in regards to the murmur and syncopal episode. She is to return if her symptoms worsen in any way. She is scheduled to be off the next couple of days. DIAGNOSIS: Syncopal episode with chest wall pain. Dictated By: Ozzie Miranda MD 08/12/17 14:56 JOB #: [id number] Transcribed By: brandon 08/12/17 15:45 Electronically signed by: JOHN Miranda M.D. 08/21/17 07:11 Page 2 of 2 LOUANN CLEMENTS Emergency Room Report Normal [facility] APTTon 08-12-2017 aPTT 23.9 s Normal 21.6 - 35.4 [facility] Comment on above: Performed By: #### 2 [id number] ####[facility],[address] [place] [address] BNP (B-TYPE NATRIURETIC PEPT RAMONITA)on 08-12-2017 BNP 24 pg/mL Normal 1 - 100 [facility] Comment on above: Performed By: #### 2 [id number] ####[facility],[address] [place] [address] C-REACTIVE PROTEINon 018 C reactive protein (CRP) 0.30 mg/dl Normal 0.00 - 1.00 [facility] Comment on above: Performed By: #### 2 [id number] ####[facility],[address] [place] [address] CBCon 08-12-2017 Basophils Auto #/vol (Bld) 0.10 x10EE3/UL Normal 0.00 - 0.10 [facility] Comment on above: Performed By: #### 2 [id number] ####[facility],[address] [place] [address] Basophils/100 WBC Auto (Bld) 1.0 % Normal 0.0 - 2.0 [facility] Comment on above: Performed By: #### 2 [id number] ####[facility],[address] [place] [address] Blood morphology N/A Normal [facility] Comment on above: Result Comment: {CD] Performed By: #### 2 [id number] ####[facility],[address] [place] [address] CBC Normal [facility] Comment on above: Result Comment: CBC- COMPLETE BLOOD COUNT Performed By: #### 2 [id number] ####[facility],[address] [place], [place] [id number] Eosinophils 0.10 x10EE3/UL Normal 0.00 - 0.50 [facility] Comment on above: Performed By: #### 2 05554 ####[facility],[address] [place] [address] Eosinophils/100 leukocytes 1.6 % Normal 0.0 - 7.0 [facility] Comment on above: Performed By: #### 2 [id number] ####[facility],[address] [place] [address] Erythrocyte distribution width Auto Ratio (RBC) 12.4 % Normal 12.0 - 15.6 [facility] Comment on above: Performed By: #### 2 22684 ####[facility],[address] [place] [address] Erythrocytes (RBC) 3.89 x 10EE6/UL Low 4.10 - 5.30 [facility] Comment on above: Performed By: #### 2 05487 ####[place] [address] Hematocrit (HCT) 36.4 % Normal 34.0 - 46.0 [facility] Comment on above: Performed By: #### 2 89245 ####[place] [address] Hemoglobin mass conc (Bld) 12.5 g/dL Normal 12.0 - 16.0 [facility] Comment on above: Performed By: #### 2 82567 ####[place] [address] Lymphocytes 2.50 x10EE3/UL Normal 0.80 - 2.80 [facility] Comment on above: Performed By: #### 2 44500 ####[place] [address] Lymphocytes/100 leukocytes 41.7 % Normal 20.0 - 45.0 [facility] Comment on above: Performed By: #### 2 95001 ####[place] [address] MANUAL DIFF N/A Normal [facility] Comment on above: Performed By: #### 2 20072 ####[place] [address] MCH 32 pg Normal 27 - 33 [facility] Comment on above: Performed By: #### 2 36294 ####[facility],[address] [place] [address] 27104 MCHC mass conc (RBC) 34 X10 3 Normal 32 - 36 [facility] Comment on above: Performed By: #### 2 32989 ####[facility],[address] [place] [address] 31266 MCV 93 fL Normal 80 - 99 [facility] Comment on above: Performed By: #### 2 08036 ####[facility],[address] [place] [address] 05092 Monocytes 0.40 x10EE3/UL Normal 0.20 - 1.00 [facility] Comment on above: Performed By: #### 2 51429 ####[facility],[address] [place] [address] 87937 MONOS % 7.1 % Normal 0.0 - 10.0 [facility] Comment on above: Performed By: #### 2 84253 ####[facility],[address] [place] [address] 49342 Neutrophils 3.00 x10EE3/UL Normal 1.50 - 7.10 [facility] Comment on above: Performed By: #### 2 48157 ####[facility],[address] [place] [address] 96763 Neutrophils/100 WBC Auto (Bld) 48.6 % Normal 46.0 - 76.0 [facility] Comment on above: Performed By: #### 2 58477 ####[facility],[address] [place] [address] 07615 Platelet mean volume (PMV) 10.5 fL Normal 6.6 - 10.5 [facility] Comment on above: Result Comment: AUTO MATED DIFFERENTIAL Performed By: #### 2 83211 ####[facility],[address] [place] [address] 28062 Platelets 190 x10EE3/UL Normal 150 - 450 [facility] Comment on above: Performed By: #### 2 33613 ####[facility],[address] [place], [place] [id number] WBC (Leukocytes) 6.1 x 10EE3/UL Normal 4.5 - 10.8 [facility] Comment on above: Performed By: #### 2 76727 ####[facility],[address] [place], [place] [id number] CHEST 2 VIEWSon 08-12-2017 CHEST 2 VIEWS [facility] [address] [place] [address] Patient: LOUANN CLEMENTS Phone#: : 1995 Age: 22 Gender: F Pt. Type: ER Account: [id number] Location: [facility] Ordering: OZZIE MIRANDA Exam Date: 08/12/2017/13:06 Family Phys: JEANE SEGOVIA Charge Code: 469040 Physician: Donley Order #: [id number] DLP Dose#: PROCEDURE: X-RAY CHEST 2 VIEWS COMPARISON: None. INDICATIONS: Chest pain FINDINGS: LUNGS: Normal. No significant pulmonary parenchymal abnormalities. VASCULATURE: Normal. Unremarkable pulmonary vasculature. CARDIAC: Normal. No cardiac silhouette abnormality or cardiomegaly. MEDIASTINUM: Normal. No visible mass or adenopathy. PLEURA: Normal. No effusion or pleural thickening. BONES: Normal. No fracture or visible bony lesion. OTHER: Negative. CONCLUSION: No acute disease. Dictated by: Lisa Walker MD on 08/12/2017 at 13:41 Approved by: Lisa Walker MD on 08/12/2017 at 13:41 Normal [facility] CMP with eGFRon 08-12-2017 Age 22 years Normal [facility] Comment on above: Performed By: #### 2 41538 ####[facility],[address] [place] [address] 68861 Albumin 3.8 g/dL Normal 3.4 - 4.8 [facility] Comment on above: Performed By: #### 2 28723 ####[facility],[address] [place] [address] 17845 Albumin/Globulin Ratio 1.6 {ratio} Normal 0.9 - 1.6 [facility] Comment on above: Performed By: #### 2 90127 ####[facility],[address] [place] [address] 96879 ALK PHOS 35 U/L Low 38 - 126 [facility] Comment on above: Performed By: #### 2 67704 ####[facility],[address] [place] [address] ALT/SGPT 11 U/L Normal 8 - 35 [facility] Comment on above: Performed By: #### 2 48579 ####[facility],[address] [place] [address] Anion gap 12 mmol/L Normal 10 - 20 [facility] Comment on above: Performed By: #### 2 66295 ####[facility],[address] [place], [place] [id number] AST/SGOT 17 U/L Normal 13 - 39 [facility] Comment on above: Performed By: #### 2 93589 ####[facility],[address] [place], [place] [id number] B/C RATIO 18 ratio Normal 0 - 30 [facility] Comment on above: Performed By: #### 2 40257 ####[facility],[address] [place], [place] [phone] Bilirubin (total) 0.2 mg/dL Normal 0.0 - 1.5 [facility] Comment on above: Performed By: #### 2 85029 ####[facility],[address] [place], [place] [id number] Calcium 8.6 mg/dL Normal 8.6 - 10.2 [facility] Comment on above: Performed By: #### 2 34705 ####[facility],[address] [place], [place] [id number] Chloride 108 mmol/L High 98 - 107 [facility] Comment on above: Performed By: #### 2 94046 ####[facility],[address] [place] [address] CO2 24.3 mmol/L Normal 21.0 - 31.0 [facility] Comment on above: Performed By: #### 2 56600 ####[facility],[address] [place] [address] Creatinine 0.8 mg/dL Normal 0.6 - 1.2 [facility] Comment on above: Performed By: #### 2 77760 ####[facility],[address] [place] [address] eGFR (non-black) Normal [facility] Comment on above: Result Comment: COMP REHENSIVE METABOLIC PANEL Performed By: #### 2 37869 ####[facility],[address] [place] [address] eGFR (non-black) mL/min/{1.73_m2} Normal 60 - 999 [facility] Comment on above: Performed By: #### 2 44035 ####[facility],[address] [place] [address] Result Comment: ACCO RDING TO THE NATIONAL KIDNEY DISEASE EDUCATION PROGRAM(NKDE), A NORMAL eGFRIS A VALUE GREATER THAN OR EQUAL TO 60 ML/MIN/1.73 SQ METERS.CHRONIC KIDNEY DISEASE: <60mL/MIN/1.73 SQ METERSKIDNEY FAILURE: <15mL/MIN/1.73 SQ METERSTHIS TEST SHOULD ONLY BE USED FOR PATIENTS 18 YEARS OF AGE AND OLDER. Globulin 2.4 g/dL Normal 1.5 - 3.8 [facility] Comment on above: Performed By: #### 2 43546 ####[facility],[address] [place] [address] Glucose mass conc 95 mg/dL Normal 74 - 106 [facility] Comment on above: Performed By: #### 2 14471 ####[facility],[address] [place] [address] Potassium molar conc 3.7 mmol/L Normal 3.5 - 5.1 [facility] Comment on above: Performed By: #### 2 60093 ####[facility],[address] [place] [address] Protein 6.2 g/dL Low 6.4 - 8.3 [facility] Comment on above: Performed By: #### 2 20036 ####[facility],[address] [place] [address] Sodium 141 mmol/L Normal 136 - 145 [facility] Comment on above: Performed By: #### 2 78862 ####[facility],[address] [place] [address] Urea nitrogen 14 mg/dL Normal 6 - 20 [facility] Comment on above: Performed By: #### 2 09208 ####[facility],[address] [place] [address] D-DIMER, QUANTITATIVEon 07-0 D-DIMER QUANT 141 ng/ml Normal 0 - 230 [facility] Comment on above: Performed By: #### 2 75197 ####[facility],[address] [place], [place] [id number] D-DIMER, QUANTITATIVE Normal [facility] Comment on above: Result Comment: ANUEL T D-DIMER Performed By: #### 2 08709 ####[facility],[address] [place], [place] [phone] DRUG SCREEN URINE MEDICon AMPHETAMINES Negative Normal [facility] Comment on above: Performed By: #### 2 81268 ####[facility],[address] [place], [place] [id number] B-DIAZEPINES Negative Normal [facility] Comment on above: Performed By: #### 2 16649 ####[facility],[address] [place], [place] [phone] BARBITURATES Negative Normal [facility] Comment on above: Performed By: #### 2 59348 ####[facility],[address] [place] [address],[facility] [address] COCAINE Negative Normal [facility] Comment on above: Performed By: #### 2 87303 ####[facility],[address] [place] [address],[facility] [address] DRUG SCREEN URINE MEDIC Normal [facility] Comment on above: Result Comment: DRUG SCREEN - URINE Performed By: #### 2 10837 ####[facility],[address] [place] [address],[facility] [address] METHADONE Negative Normal [facility] Comment on above: Performed By: #### 2 69238 ####[facility],[address] [place] [address],[facility] [address] OPIATES Negative [facility] Comment on above: Performed By: #### 2 43299 ####[facility],[address] [place] [address]858 PCP Negative Normal [facility] Comment on above: Performed By: #### 2 31036 ####[facility],[address] [place] [address] 39339 TCA Negative Normal [facility] Comment on above: Performed By: #### 2 00251 ####[facility],[address] [place] [address] 23486 THC Negative Normal [facility] Comment on above: Result Comment: PARVIN ENTS RECEIVING PROTON PUMP INHIBITORS MAY DEMONSTRATE FALSE POSITIVETHC/CANNABINOID RESULTS. AN ALTERNATIVE CONFIRMATORY METHOD SHOULD BE CONSIDEREDTO VERIFY POSITIVE RESULTS. Performed By: #### 2 44623 ####[facility],[address] [place] [address] 68[address] LACTATEon 08-12-2017 Lactate 7.8 mg/dL Normal 4.5 - 18.0 [facility] Comment on above: Performed By: #### 2 61042 ####[facility],[address] [place] [address],[facility] [address] LIPASEon 08-12-2017 Lipase 16.0 U/L Low 18.0 - 51.0 [facility] Comment on above: Performed By: #### 2 82576 ####[facility],[address] [place] [address] MAGNESIUMon 08-12-2017 Magnesium 1.9 mg/dL Normal 1.6 - 2.6 [facility] Comment on above: Performed By: #### 2 35746 ####[facility],[address] [place] [address] URINEon 08-12-2017 EXTERNAL QC DONE? YES Normal [facility] Comment on above: Performed By: #### 2 15656 ####[facility],[address] [place] [address] INTERNAL QC PASS Normal [facility] Comment on above: Performed By: #### 2 08705 ####[facility],[address] [place] [address] UR Negative Normal NEGATIVE [facility] Comment on above: Performed By: #### 2 88975 ####[facility],[address] [place] [address] PROTHROMBIN TIME AND INRon 0 08-12-2017 INR Coag RelTime (Bld) Normal [facility] Comment on above: Result Comment: PROT HROMBIN TIME AND INR Performed By: #### 2 53725 ####[facility],[address] [place] [address] INR Coag RelTime (PPP) 0.9 {INR} Normal 0.8 - 1.2 [facility] Comment on above: Result Comment: T HE HEMOSIL THROMBOPLASTIN REAGENT USED IN THE PROTHROMBIN TIMETEST INTERACTS WITH THE DRUG CUBICIN (DAPTOMYCIN) AND WILL RESULTIN FALSELY ELEVATED PT / INR RESULTS INR INTERPRETATION INR INDICATION PREVENTION AND TREATMENT OF THROMBOEMBOLISM ASSOCIATED WITH: 2.0 - 3.0 ATRIAL FIBRILLATION, BIOPROSTHETIC HEART VALVES, PULMONARY EMBOLISM, VENOUS THROMBOSIS, SYSTEMIC EMBOLISM POST MYOCARDIAL INFARCTION 2.5 - 3.5 MECHANICAL HEART VALVES Performed By: #### 2 80361 ####[facility],[address] [place] [address] PT-COUMADIN 10.4 sec Normal [facility] Comment on above: Performed By: #### 2 07134 ####[facility],[address] [place] [address] SEDRATEon 08-12-2017 SEDRATE 2 mm/hr Normal 0 - 30 [facility] Comment on above: Performed By: #### 2 77611 ####[facility],[address] [place] [address] TROPONINon 08-12-2017 Troponin I.cardiac mass conc ng/mL Normal 0.00 - 0.05 [facility] Comment on above: Result Comment: Elev ated troponin (above the 99th percentile) usually indicates myocardialischemia. Results must be interpreted within the clinical setting.1.Non-ischemic pathology can also cause elevated troponin levels (e.g., acute pulmonary embolism, myocarditis, pericarditis, heart failure, intracranial injury, rhabdomyolisis, sepsis, shock and renal insufficiency).2.Approximately 1% of healthy adults have elevated troponin levels.3.Analytical false positive results rarely occur(due to multiple interferences such as heterophile antibodies). Performed By: #### 2 44147 ####[facility],[address] [place] [address] TSHon 08-12-2017 Thyroid stimulating hormone (TSH) 3.64 uIU/ml Normal 0.34 - 5.60 [facility] Comment on above: Performed By: #### 2 22850 ####[facility],[address] [place] [address] URINALYSISon 08-12-2017 Bilirubin Negative Normal NORMAL: NEGATIVE [facility] Comment on above: Performed By: #### 2 99930 ####[facility],[address] [place] [address] Blood Negative Normal NORMAL: NEGATIVE [facility] Comment on above: Performed By: #### 2 42878 ####[facility],[address] [place] [address],[facility] [address] Clarity clear Normal NORMAL: CLEAR [facility] Comment on above: Performed By: #### 2 51766 ####[facility],[address] [place] [address] 40048 Color p.yel Normal NORMAL: YELLOW [facility] Comment on above: Performed By: #### 2 03549 ####[facility],[address] [place] [address] 22128 Glucose NORM Normal NORMAL: NORMAL [facility] Comment on above: Performed By: #### 2 20980 ####[facility],[address] [place] [address],[facility] [address] Ketone Negative Normal NORMAL: NEGATIVE [facility] Comment on above: Performed By: #### 2 42167 ####[facility],[address] [place] [address] 77009 Leukocytes Negative Normal NORMAL: NEGATIVE [facility] Comment on above: Performed By: #### 2 55911 ####[facility],[address] [place] [address] 28977 Microscopic NOT INDICATED Normal [facility] Comment on above: Performed By: #### 2 31865 ####[facility],[address] [place] [address] 47514 Nitrite Negative Normal NORMAL: NEGATIVE [facility] Comment on above: Performed By: #### 2 76593 ####[facility],[address] [place] [address] 10502 ph 5 Normal NORMAL: 5.0-8.0 [facility] Comment on above: Performed By: #### 2 73270 ####[facility],[address] [place] [address] 00652 Protein Negative Normal NORMAL: NEGATIVE [facility] Comment on above: Performed By: #### 2 56283 ####[facility],[address] [place] [address] Sp [place] 1.015 Normal NORMAL: 1.010-1.030 [facility] Comment on above: Performed By: #### 2 85678 ####[facility],[address] [place] [address]24 Specimen Type Void Normal [facility] Comment on above: Performed By: #### 2 15170 ####[facility],[address] [place] [address] 36284 URINALYSIS Normal [facility] Comment on above: Result Comment: URIN ALYSIS Performed By: #### 2 11796 ####[facility],[address] [place] [address] 80196 Urobilinog NORM Normal NORMAL: NORMAL [facility] Comment on above: Performed By: #### 2 32423 ####[facility],[address] [place] [address]602 Vital Signs Date Time Vital Sign Value Performing Clinician Brennan flower 09-29-2024 14:20-0400 Body mass index (BMI) [Ratio] 34.54 kg/m2 Melissa Ledesma MD Work Phone: [facility] 09-29-2024 14:20-0400 Body weight 88.45 kg Melissa Ledesma MD Work Phone: [facility] 09-29-2024 14:20-0400 Diastolic blood pressure 62 mm[Hg] Melissa Ledesma MD Work Phone: [facility] 09-29-2024 14:20-0400 Systolic blood pressure 104 mm[Hg] Melissa Ledesma MD Work Phone: [facility] 09-23-2024 08:30-0400 Body mass index (BMI) [Ratio] 34.37 kg/m2 Melissa Ledesma MD Work Phone: [facility] 09-23-2024 08:30-0400 Body weight 88 kg Melissa Ledesma MD Work Phone: [facility] 09-23-2024 08:30-0400 Diastolic blood pressure 60 mm[Hg] Melissa Ledesma MD Work Phone: [facility] 09-23-2024 08:30-0400 Systolic blood pressure 110 mm[Hg] Melissa Ledesma MD Work Phone: [facility] 09-02-2024 13:29-0400 Body mass index (BMI) [Ratio] 32.59 kg/m2 Melissa Ledesma MD Work Phone: [facility] 09-02-2024 13:29-0400 Body weight 83.46 kg Melissa Ledesma MD Work Phone: [facility] 09-02-2024 13:29-0400 Diastolic blood pressure 56 mm[Hg] Melissa Ledesma MD Work Phone: [facility] 09-02-2024 13:29-0400 Systolic blood pressure 100 mm[Hg] Melissaana Ledesma MD Work Phone: [facility] 08-19-2024 09:36-0400 Body mass index (BMI) [Ratio] 31.85 kg/m2 Melissa Ledesma MD Work Phone: [facility] 08-19-2024 09:36-0400 Body weight 81.56 kg Melissa Ledesma MD Work Phone: [facility] 08-19-2024 09:36-0400 Diastolic blood pressure 60 mm[Hg] Melissa Ledesma MD Work Phone: [facility] 08-19-2024 09:36-0400 Systolic blood pressure 100 mm[Hg] Melissa Ledesma MD Work Phone: [facility] 08-06-2024 13:43-0400 Body mass index (BMI) [Ratio] 32.06 kg/m2 Sreedhar Shields MD Work Phone: [facility] 08-06-2024 13:43-0400 Body weight 82.1 kg Sreedhar Shields MD Work Phone: [facility] 08-06-2024 13:43-0400 Diastolic blood pressure 58 mm[Hg] Sreedhar Shields MD Work Phone: [facility] 08-06-2024 13:43-0400 Systolic blood pressure 98 mm[Hg] Sreedhar Shields MD Work Phone: [facility] 07-23-2024 08:26-0400 Body mass index (BMI) [Ratio] 31.53 kg/m2 Melissa Ledesma MD Work Phone: [facility] 07-23-2024 08:26-0400 Body weight 80.74 kg Melissa Ledesma MD Work Phone: [facility] 07-23-2024 08:26-0400 Diastolic blood pressure 60 mm[Hg] Melissa Ledesma MD Work Phone: [facility] 07-23-2024 08:26-0400 Systolic blood pressure 100 mm[Hg] Melissa Ledesma MD Work Phone: [facility] 06-24-2024 16:19-0400 Body mass index (BMI) [Ratio] 30.93 kg/m2 Melissa Ledesma MD Work Phone: [facility] 06-24-2024 16:19-0400 Body weight 79.2 kg Melissa Ledesma MD Work Phone: [facility] 06-24-2024 16:19-0400 Diastolic blood pressure 62 mm[Hg] Melissa Ledesma MD Work Phone: [facility] 06-24-2024 16:19-0400 Systolic blood pressure 100 mm[Hg] Melissa Ledesma MD Work Phone: [facility] 05-26-2024 16:06-0400 Body mass index (BMI) [Ratio] 29.58 kg/m2 Melissa Ledesma MD Work Phone: [facility] 05-26-2024 16:06-0400 Body weight 75.75 kg Melissa Ledesma MD Work Phone: [facility] 05-26-2024 16:06-0400 Diastolic blood pressure 68 mm[Hg] Melissa Ledesma MD Work Phone: [facility] 05-26-2024 16:06-0400 Systolic blood pressure 98 mm[Hg] Melissa Ledesma MD Work Phone: [facility] 05-26-2024 15:21-0400 Body mass index (BMI) [Ratio] 29.58 kg/m2 [facility] 05-26-2024 15:21-0400 Body weight 75.75 kg [facility] 05-26-2024 15:21-0400 Diastolic blood pressure 68 mm[Hg] [facility] 05-26-2024 15:21-0400 Systolic blood pressure 98 mm[Hg] [facility] 04-30-2024 15:55-0400 Body mass index (BMI) [Ratio] 28.7 kg/m2 Melissa Ledesma MD Work Phone: [facility] 04-30-2024 15:55-0400 Body weight 73.48 kg Melissa Ledesma MD Work Phone: [facility] 04-30-2024 15:55-0400 Diastolic blood pressure 60 mm[Hg] Melissa Ledesma MD Work Phone: [facility] 04-30-2024 15:55-0400 Systolic blood pressure 100 mm[Hg] Melissa Ledesma MD Work Phone: [facility] 04-02-2024 14:57-0500 Body mass index (BMI) [Ratio] 28.17 kg/m2 Nazanin Beckwith MD Work Phone: [facility] 04-02-2024 14:57-0500 Body weight 72.12 kg Nazanin Beckwith MD Work Phone: [facility] 03-02-2024 08:41-0500 Body height 160 cm Christiane Guallpa VP PATIENT.CNM Work Phone: [facility] 03-02-2024 08:41-0500 Body mass index (BMI) [Ratio] 28.87 kg/m2 Christiane Guallpa VP PATIENT.CNM Work Phone: [facility] 03-02-2024 08:41-0500 Body weight 73.94 kg Christiane Guallpa VP PATIENT.CNM Work Phone: [facility] 03-02-2024 08:41-0500 Diastolic blood pressure 66 mm[Hg] Christiane Guallpa VP PATIENT.CNM Work Phone: [facility] 03-02-2024 08:41-0500 Systolic blood pressure 102 mm[Hg] Christiane Guallpa VP PATIENT.CNM Work Phone: [facility] 11-07-2023 15:12-0400 Body height 162 cm Rubin Haury VP PATIENT.SKIRT PANEL ASSEMBLER Work Phone: [facility] 11-07-2023 15:12-0400 Body mass index (BMI) [Ratio] 27.1 kg/m2 Rubin Haury VP PATIENT.SKIRT PANEL ASSEMBLER Work Phone: [facility] 11-07-2023 15:12-0400 Body weight 71.12 kg Rubin Haury VP PATIENT.SKIRT PANEL ASSEMBLER Work Phone: [facility] 11-07-2023 15:12-0400 Diastolic blood pressure 60 mm[Hg] Rubin Haury VP PATIENT.SKIRT PANEL ASSEMBLER Work Phone: [facility] 11-07-2023 15:12-0400 Systolic blood pressure 98 mm[Hg] Rubin Haury VP PATIENT.SKIRT PANEL ASSEMBLER Work Phone: [facility] 06-26-2023 10:18-0400 Body mass index (BMI) [Ratio] 25.92 kg/m2 Lesley Otis VP PATIENT.SKIRT PANEL ASSEMBLER Work Phone: [facility] 06-26-2023 10:18-0400 Body temperature 98.49 [degF] Lesley Otis VP PATIENT.SKIRT PANEL ASSEMBLER Work Phone: [facility] 06-26-2023 10:18-0400 Body weight 68.49 kg Lesley Otis VP PATIENT.SKIRT PANEL ASSEMBLER Work Phone: [facility] 06-26-2023 10:18-0400 Diastolic blood pressure 76 mm[Hg] Lesley Otis VP PATIENT.SKIRT PANEL ASSEMBLER Work Phone: [facility] 06-26-2023 10:18-0400 Heart rate 83 /min Lesley Otis VP PATIENT.SKIRT PANEL ASSEMBLER Work Phone: [facility] 06-26-2023 10:18-0400 Respiratory rate 12 /min Lesley Otis VP PATIENT.SKIRT PANEL ASSEMBLER Work Phone: [facility] 06-26-2023 10:18-0400 SaO2% (BldA) [Mass fraction] 97 % Lesley Otis VP PATIENT.SKIRT PANEL ASSEMBLER Work Phone: [facility] [facility] 06-26-2023 10:18-0400 Systolic blood pressure 108 mm[Hg] Lesley Otis VP PATIENT.SKIRT PANEL ASSEMBLER Work Phone: [facility] 06-06-2023 14:46-0400 Body mass index (BMI) [Ratio] 26.13 kg/m2 Sylvia Curran VP PATIENT.SKIRT PANEL ASSEMBLER Work Phone: [facility] 06-06-2023 14:46-0400 Body weight 69.04 kg Sylvia Curran VP PATIENT.SKIRT PANEL ASSEMBLER Work Phone: [facility] 06-06-2023 14:46-0400 Diastolic blood pressure 60 mm[Hg] Sylvia Curran VP PATIENT.SKIRT PANEL ASSEMBLER Work Phone: [facility] 06-06-2023 14:46-0400 Heart rate 115 /min Sylvia Curran VP PATIENT.SKIRT PANEL ASSEMBLER Work Phone: [facility] 06-06-2023 14:46-0400 Respiratory rate 14 /min Sylvia Curran VP PATIENT.SKIRT PANEL ASSEMBLER Work Phone: [facility] 06-06-2023 14:46-0400 Systolic blood pressure 94 mm[Hg] Sylvia Curran VP PATIENT.SKIRT PANEL ASSEMBLER Work Phone: [facility] 02-18-2023 12:37-0500 Body height 160.[address] Sera Scott Work Phone: [facility] 01-10-2023 13:22-0500 Body mass index (BMI) [Ratio] 28 kg/m2 Dr. Sera Scott Work Phone: [facility] 01-10-2023 13:22-0500 Body weight 71.[address] Sera Scott Work Phone: [facility] 08-24-2022 11:33-0400 Body weight 69.85 kg Melissa Ledesma MD Work Phone: [facility] 08-24-2022 11:33-0400 Diastolic blood pressure 70 mm[Hg] Melissa Ledesma MD Work Phone: [facility] 08-24-2022 11:33-0400 Systolic blood pressure 114 mm[Hg] Melissa Ledesma MD Work Phone: [facility] 08-06-2022 07:29-0400 Body height 162.6 cm Jennifer Mistry VP PATIENT.ORACLE DATABASE ARCHITECT Work Phone: [facility] 08-06-2022 07:29-0400 Body weight 70.76 kg Jennifer Mistry VP PATIENT.ORACLE DATABASE ARCHITECT Work Phone: [facility] 08-06-2022 07:29-0400 Diastolic blood pressure 62 mm[Hg] Jennifer Mistry VP PATIENT.ORACLE DATABASE ARCHITECT Work Phone: [facility] 08-06-2022 07:29-0400 Heart rate 84 /min Jennifer Mistry VP PATIENT.ORACLE DATABASE ARCHITECT Work Phone: [facility] 08-06-2022 07:29-0400 Respiratory rate 16 /min Jennifer Mistry VP PATIENT.ORACLE DATABASE ARCHITECT Work Phone: [facility] 08-06-2022 07:29-0400 Systolic blood pressure 108 mm[Hg] Jennifer Mistry VP PATIENT.ORACLE DATABASE ARCHITECT Work Phone: [facility] 07-25-2022 21:23-0400 Body height 160.02 cm [facility] 07-25-2022 21:23-0400 Body mass index (BMI) [Ratio] 27.2 kg/m2 [facility] 07-25-2022 21:23-0400 Body temperature 98 [degF] [facility] 07-25-2022 21:23-0400 Body weight 69.7 kg [facility] 07-25-2022 21:23-0400 Diastolic blood pressure 83 mm[Hg] [facility] 07-25-2022 21:23-0400 Heart rate 70 /min [facility] 07-25-2022 21:23-0400 Respiratory rate 16 /min [facility] 07-25-2022 21:23-0400 SaO2% (BldA) [Mass fraction] 100 % [facility] 07-25-2022 21:23-0400 Systolic blood pressure 119 mm[Hg] [facility] 04-25-2022 11:16-0400 Body height 162 cm Melissa Ledesma MD Work Phone: [facility] 04-25-2022 11:16-0400 Body weight 73.39 kg Melissa Ledesma MD Work Phone: [facility] 04-25-2022 11:16-0400 Diastolic blood pressure 60 mm[Hg] Melissa Ledesma MD Work Phone: [facility] 04-25-2022 11:16-0400 Systolic blood pressure 108 mm[Hg] Melissa Ledesma MD Work Phone: [facility] 03-09-2022 08:09-0500 Body height 160 cm Sera Scott MD Work Phone: [facility] 03-09-2022 08:09-0500 Body temperature 97.39 [degF] Sera Scott MD Work Phone: [facility] 03-09-2022 08:09-0500 Body weight 73.48 kg Sera Scott MD Work Phone: [facility] 03-09-2022 08:09-0500 Diastolic blood pressure 58 mm[Hg] Sera Scott MD Work Phone: [facility] 03-09-2022 08:09-0500 Heart rate 88 /min Sera Scott MD Work Phone: [facility] 03-09-2022 08:09-0500 Respiratory rate 12 /min Sera Scott MD Work Phone: [facility] 03-09-2022 08:09-0500 SaO2% (BldA) [Mass fraction] 96 % Sera Scott MD Work Phone: [facility] 03-09-2022 08:09-0500 Systolic blood pressure 118 mm[Hg] Sera Scott MD Work Phone: [facility] 02-21-2022 16:28-0500 Body weight 73.03 kg Sarah Older VP PATIENT.SKIRT PANEL ASSEMBLER Work Phone: [facility] 02-21-2022 16:28-0500 Diastolic blood pressure 60 mm[Hg] Sarah Older VP PATIENT.SKIRT PANEL ASSEMBLER Work Phone: [facility] 02-21-2022 16:28-0500 Heart rate 60 /min Sarah Older VP PATIENT.SKIRT PANEL ASSEMBLER Work Phone: [facility] 02-21-2022 16:28-0500 Respiratory rate 16 /min Sarah Older VP PATIENT.SKIRT PANEL ASSEMBLER Work Phone: [facility] 02-21-2022 16:28-0500 Systolic blood pressure 108 mm[Hg] Sarah Older VP PATIENT.SKIRT PANEL ASSEMBLER Work Phone: [facility] 12-21-2021 16:13-0500 Body temperature 98.71 [degF] Christiane Leung VP PATIENT.SKIRT PANEL ASSEMBLER Work Phone: [facility] 12-21-2021 16:13-0500 Body weight 71.4 kg Christiane Leung VP PATIENT.SKIRT PANEL ASSEMBLER Work Phone: [facility] 12-21-2021 16:13-0500 Diastolic blood pressure 72 mm[Hg] Christiane Leung VP PATIENT.SKIRT PANEL ASSEMBLER Work Phone: [facility] 12-21-2021 16:13-0500 Heart rate 71 /min Christiane Leung VP PATIENT.SKIRT PANEL ASSEMBLER Work Phone: [facility] 12-21-2021 16:13-0500 Respiratory rate 18 /min Christiane Leung VP PATIENT.SKIRT PANEL ASSEMBLER Work Phone: [facility] 12-21-2021 16:13-0500 SaO2% (BldA) [Mass fraction] 98 % Christiane Leung VP PATIENT.SKIRT PANEL ASSEMBLER Work Phone: [facility] 12-21-2021 16:13-0500 Systolic blood pressure 110 mm[Hg] Christiane Leung VP PATIENT.SKIRT PANEL ASSEMBLER Work Phone: [facility] 11-28-2021 08:22-0400 Body temperature 99 [degF] Arti Athy PA-C Work Phone: [facility] 11-28-2021 08:22-0400 Body weight 68.95 kg Arti Athy PA-C Work Phone: [facility] 11-28-2021 08:22-0400 Diastolic blood pressure 64 mm[Hg] Arti Athy PA-C Work Phone: [facility] 11-28-2021 08:22-0400 Heart rate 118 /min Arti Athy PA-C Work Phone: [facility] 11-28-2021 08:22-0400 Respiratory rate 18 /min Arti Athy PA-C Work Phone: [facility] 11-28-2021 08:22-0400 SaO2% (BldA) [Mass fraction] 100 % Arti Pierre PA-C Work Phone: [facility] 11-28-2021 08:22-0400 Systolic blood pressure 102 mm[Hg] Arti ESPINAL-Malou Work Phone: [facility] 11-27-2021 07:36-0400 Body temperature 99.5 [degF] Cindy Beckwith APRN.SKIRT PANEL ASSEMBLER Work Phone: [facility] 11-27-2021 07:36-0400 Body weight 69.4 kg Cindy Beckwith APRN.SKIRT PANEL ASSEMBLER Work Phone: [facility] 11-27-2021 07:36-0400 Diastolic blood pressure 62 mm[Hg] Cindy Beckwith APRN.SKIRT PANEL ASSEMBLER Work Phone: [facility] 11-27-2021 07:36-0400 Heart rate 125 /min Cindy Beckwith APRN.SKIRT PANEL ASSEMBLER Work Phone: [facility] 11-27-2021 07:36-0400 Respiratory rate 21 /min Cindy Beckwith APRN.SKIRT PANEL ASSEMBLER Work Phone: [facility] 11-27-2021 07:36-0400 SaO2% (BldA) [Mass fraction] 98 % Cindy Beckwith APRN.SKIRT PANEL ASSEMBLER Work Phone: [facility] 11-27-2021 07:36-0400 Systolic blood pressure 102 mm[Hg] Cindy Beckwith APRN.SKIRT PANEL ASSEMBLER Work Phone: [facility] 09-11-2021 09:01-0400 Body height 160 cm Sarah Older VP PATIENT.SKIRT PANEL ASSEMBLER Work Phone: [facility] 09-11-2021 09:01-0400 Body weight 69.4 kg Sarah Older VP PATIENT.SKIRT PANEL ASSEMBLER Work Phone: [facility] 09-11-2021 09:01-0400 Diastolic blood pressure 66 mm[Hg] Sarah Older VP PATIENT.SKIRT PANEL ASSEMBLER Work Phone: [facility] 09-11-2021 09:01-0400 Heart rate 70 /min Sarah Older VP PATIENT.SKIRT PANEL ASSEMBLER Work Phone: [facility] 09-11-2021 09:01-0400 Respiratory rate 14 /min Sarah Older VP PATIENT.SKIRT PANEL ASSEMBLER Work Phone: [facility] 09-11-2021 09:01-0400 Systolic blood pressure 110 mm[Hg] Sarah Older VP PATIENT.SKIRT PANEL ASSEMBLER Work Phone: [facility] Encounters Encounter Date Encounter Type Care Provider Facility Start: 09-29-2024 End: 09-29-2024 Patient encounter procedure Melissa Ledesma MD Work Phone: OB/Gynecology Comment on above: Encounter for superv ision of other normal in third trimester (HCC) (Primary Dx); Anemia complicating , third trimester ([facility]); History of delivery by vacuum extraction, currently ([facility]); Uterine size-date discrepancy, third trimester ([facility]); 38 weeks gestation of ([facility]) Start: 09-29-2024 End: 09-29-2024 [facility] Facility:[facility] Start: 09-28-2024 End: 09-28-2024 ambulatory [facility] [place] Start: 09-28-2024 End: 09-28-2024 Patient encounter procedure [facility] Comment on above: Population Health Na vigation Outreach ( to PCP/OB//) Start: 09-23-2024 End: 09-23-2024 Patient encounter procedure Melissa Ledesma MD Work Phone: OB/Gynecology Comment on above: Encounter for superv ision of other normal in third trimester (HCC) (Primary Dx); Anemia complicating , third trimester (HCC); History of delivery by vacuum extraction, currently ([facility]); 37 weeks gestation of (HCC) Start: 09-23-2024 End: 09-23-2024 [facility] Facility:[facility] Start: 09-16-2024 End: 09-16-2024 [facility] Facility:[facility] Start: 09-02-2024 End: 09-02-2024 Patient encounter procedure Melissa Ledesma MD Work Phone: OB/Gynecology Comment on above: Encounter for superv ision of other normal in third trimester (HCC) (Primary Dx); Anemia complicating , third trimester (HCC); History of delivery by vacuum extraction, currently (HCC); 34 weeks gestation of (HCC) Start: 09-02-2024 End: 09-02-2024 [facility] Facility:[facility] Start: 08-19-2024 End: 08-19-2024 Patient encounter procedure Melissa Ledesma MD Work Phone: OB/Gynecology Comment on above: Encounter for superv ision of other normal in third trimester (HCC) (Primary Dx); Anemia complicating , third trimester (HCC); 32 weeks gestation of (HCC) Start: 08-19-2024 End: 08-19-2024 [facility] Facility:[facility] Start: 08-06-2024 End: 08-06-2024 Patient encounter procedure Sreedhar Shields MD Work Phone: OB/Gynecology Comment on above: Encounter for superv ision of other normal in third trimester (HCC) (Primary Dx); Anemia complicating , third trimester (HCC); 30 weeks gestation of (HCC) Start: 08-06-2024 End: 08-06-2024 [facility] Facility:[facility] Start: 08-04-2024 End: 08-04-2024 ambulatory Melissa Ledesma MD Work Phone: OB/Gynecology Comment on above: Stomach cramps Start: 07-31-2024 End: 09-30-2024 Follow-up encounter Rubin Davila APRN.CNP Work Phone: OB/Gynecology Start: 07-31-2024 End: 07-31-2024 [facility] Facility:[facility] Start: 07-24-2024 End: 07-24-2024 Telephone encounter Nurse War[employer] Hauler Javad Amezcua Work Phone: Obstetrics/Gynecology Comment on above: PRAF Start: 07-23-2024 End: 09-22-2024 Follow-up encounter Melissa Ledesma MD Work Phone: OB/Gynecology Start: 07-23-2024 End: 07-23-2024 Patient encounter procedure Melissa Ledesma MD Work Phone: OB/Gynecology Comment on above: Encounter for superv ision of other normal in third trimester ([facility]) (Primary Dx); History of delivery by vacuum extraction, currently ([facility]); Rh negative state in antepartum period ([facility]); Need for vaccination; 28 weeks gestation of ([facility]) Start: 07-23-2024 End: 07-23-2024 [facility] Facility:[facility] Start: 07-22-2024 End: 07-22-2024 ambulatory Melissa Ledesma MD Work Phone: OB/Gynecology Comment on above: Glucose test Start: 06-24-2024 End: 06-24-2024 Patient encounter procedure Melissa Ledesma MD Work Phone: OB/Gynecology Comment on above: Encounter for superv ision of other normal in second trimester ([facility]) (Primary Dx); Screening for diabetes mellitus; 24 weeks gestation of ([facility]) Start: 06-24-2024 End: 06-24-2024 [facility] Facility:[facility] Start: 05-27-2024 End: 05-27-2024 Telephone encounter Nurse Warp Hauler Javad Amezcua Work Phone: Obstetrics/Gynecology Comment on above: PRAF Start: 05-26-2024 End: 05-26-2024 [facility] Facility:[facility] Start: 05-26-2024 End: 05-26-2024 [facility] Facility:[facility] Start: 05-26-2024 End: 05-26-2024 Patient encounter procedure Melissa Ledesma MD Work Phone: OB/Gynecology Comment on above: Encounter for superv ision of other normal in second trimester (HCC) (Primary Dx); History of delivery by vacuum extraction, currently (HCC); 20 weeks gestation of (HCC) Encounter for anatomic survey (HCC) (Primary Dx); 20 weeks gestation of (HCC) Start: 04-30-2024 End: 04-30-2024 Patient encounter procedure Melissa Ledesma MD Work Phone: OB/Gynecology Comment on above: Supervision of other normal (Primary Dx); History of delivery by vacuum extraction, currently ; 16 weeks gestation of Start: 04-30-2024 End: 04-30-2024 [facility] Facility:[facility] Start: 04-29-2024 End: 04-29-2024 Telephone encounter Sreedhar Shields MD Work Phone: OB/Gynecology Comment on above: Blacking out episode Start: 04-02-2024 End: 04-02-2024 [facility] Facility:[facility] Start: 04-02-2024 End: 04-02-2024 Patient encounter procedure Nazanin Beckwith MD Work Phone: OB/Gynecology Comment on above: Supervision of other normal (Primary Dx); 12 weeks gestation of Start: 04-02-2024 End: 06-02-2024 Follow-up encounter Sreedhar Shields MD Work Phone: OB/Gynecology Start: 03-31-2024 End: 03-31-2024 Patient encounter procedure [facility] [employer] 2 [facility] Comment on above: Encounter for antena lashell screening for malformation using ultrasound (Primary Dx); 12 weeks gestation of Start: 03-31-2024 End: 03-31-2024 [facility] Facility:[facility] Start: 03-03-2024 End: 03-03-2024 Telephone encounter Elvia Gilmore RN Obstetrics/Gynecolog y Comment on above: 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 - O ther (PRAF) Start: 03-02-2024 End: 03-02-2024 [facility] Facility:[facility] Start: 03-02-2024 End: 03-02-2024 Patient encounter procedure Christiane Guallpa APRN.CNM Work Phone: OB/Gynecology Comment on above: with uncer tain dates in first trimester (Primary Dx); Supervision of other normal ; History of delivery by vacuum extraction, currently ; Rh negative state in antepartum period; Pars defect of lumbar spine Start: 11-15-2023 End: 11-15-2023 ambulatory [facility] OB/Gynecology Start: 11-15-2023 End: 11-15-2023 Patient encounter procedure Whi Tech 1 [facility] OB/Gynecology Start: 11-07-2023 End: 11-07-2023 [facility] Facility:[facility] Start: 11-07-2023 End: 11-07-2023 Patient encounter procedure Rubin Davila APRN.SKIRT PANEL ASSEMBLER Work Phone: OB/Gynecology Comment on above: Encounter for gyneco logical examination (general) (routine) without abnormal findings (Primary Dx); Dyspareunia in female Start: 11-07-2023 End: 11-07-2023 Patient encounter status Rubin Davila APRN.SKIRT PANEL ASSEMBLER Work Phone: [facility] Start: 09-18-2023 [facility] Start: 09-18-2023 [facility] Start: 09-18-2023 End: 09-18-2023 [facility] Facility:[facility] Start: 09-05-2023 End: 09-05-2023 Nursing evaluation of patient and report Mi Nurse Work Phone: [facility] Comment on above: Screening-pulmonary TB (Primary Dx) Start: 09-02-2023 End: 09-02-2023 Nursing evaluation of patient and report Mi Nurse Work Phone: [facility] Comment on above: Screening-pulmonary TB (Primary Dx) Start: 08-30-2023 [facility] Start: 08-30-2023 End: 08-30-2023 [facility] Facility:[facility] Start: 08-28-2023 End: 08-28-2023 ambulatory [facility] Start: 08-20-2023 Telephone encounter Sera blanco MD Work Phone: [facility] [place] Comment on above: Orders Start: 07-21-2023 End: 07-21-2023 Emergency department patient visit Sera Scott Facility:[facility] Start: 06-27-2023 Telephone encounter Sera blanco MD Work Phone: [facility] [place] Comment on above: Results Start: 06-26-2023 ambulatory LESLEY ALVA Facil ity:[facility] Start: 06-26-2023 End: 06-26-2023 Subsequent hospital visit by physician [facility] Comment on above: Epigastric pain [R10 .13] Start: 06-26-2023 End: 06-26-2023 Patient encounter procedure Lesley Alva APRN.SKIRT PANEL ASSEMBLER Work Phone: [facility] [place] Comment on above: Epigastric pain (Rebecca veronique Dx); Nausea and vomiting, unspecified vomiting type Start: 06-19-2023 ambulatory Sylvia Curran APRN.SKIRT PANEL ASSEMBLER Work Phone: [facility] [place] Comment on above: Heart monitor Start: 06-06-2023 End: 06-06-2023 Patient encounter procedure Sylvia Curran APRN.SKIRT PANEL ASSEMBLER Work Phone: Family [facility] Comment on above: Rapid heartbeat (Rebecca veronique Dx); Palpitations; VERENICE (generalized anxiety disorder); Pain of right thumb Start: 02-19-2023 End: 02-19-[address] Sera Scott Work Phone: [facility] Work Phone: Start: 02-19-2023 End: 02-19-2023 ambulatory No Primary Care Physician [place] [place]: 02-16-2023 End: 02-16-[address] Sera Scott Work Phone: [facility] Work Phone: Start: 02-16-2023 End: 02-16-[address] Sera Scott Work Phone: [facility] Work Phone: Start: 02-16-2023 End: 02-16-2023 ambulatory No Primary Care Physician Facility:[facility] Start: 01-10-2023 End: 01-10-[address] Sera Scott Work Phone: [facility] Work Phone: Start: 01-10-2023 End: 01-10-2023 ambulatory Sera Scott [place] Start: 08-24-2022 End: 08-24-2022 Patient encounter procedure Melissa Ledesma MD Work Phone: OB/Gynecology Comment on above: Abdominal pain in fe male (Primary Dx); Free fluid in pelvis; Oral contraceptive pill surveillance; Deep dyspareunia Start: 08-08-2022 End: 08-08-2022 Subsequent hospital visit by physician [facility] Work Phone: Radiology Comment on above: Acute pancreatitis, unspecified complication status, unspecified pancreatitis type [K85.90] Start: 08-06-2022 End: 08-06-2022 Office outpatient visit 15 minutes Jennifer Mistry APRN.CNS Work Phone: [facility] [place] Comment on above: Acute pancreatitis, unspecified complication status, unspecified pancreatitis type (Primary Dx); Pelvic pain in female; Routine medical exam Start: 08-06-2022 End: 08-06-2022 Patient encounter status Jennifer Misrty APRN.ORACLE DATABASE ARCHITECT Work Phone: [facility] [place] Start: 07-25-2022 End: 07-25-2022 Emergency department patient visit [facility] Start: 05-26-2022 Refill Melissa Ledesma MD Work Phone: OB/Gynecology Comment on above: Refill Request; Refi ll Request Start: 04-25-2022 End: 04-25-2022 Female genitalia finding Melissa Ledesma MD Work Phone: OB/Gynecology Start: 04-25-2022 End: 04-25-2022 Patient encounter procedure Melissa Ledesma MD Work Phone: OB/Gynecology Comment on above: Gynecologic exam nor mal (Primary Dx); Special screening examination for human papillomavirus (HPV); Screening for cervical cancer Start: 03-27-2022 End: 03-27-2022 Nursing evaluation of patient and report Mi Nurse Work Phone: [facility] [place] Comment on above: Need for vaccination (Primary Dx) Start: 03-12-2022 End: 03-12-2022 Nursing evaluation of patient and report Mi Nurse Work Phone: Family [facility] [place] Comment on above: Screening examinatio n for pulmonary tuberculosis (Primary Dx) Start: 03-09-2022 End: 03-09-2022 Patient encounter procedure Sera Scott MD Work Phone: Internal [facility] [place] Comment on above: 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, sciatica laterality unspecified (Primary Dx); Other migraine without status migrainosus, not intractable; Overweight Start: 03-05-2022 Telephone encounter Sera blanco MD Work Phone: [facility] [place] Comment on above: Orders Start: 03-02-2022 End: 03-02-2022 Nursing evaluation of patient and report Mi Nurse Work Phone: Family [facility] [place] Comment on above: Screening examinatio n for pulmonary tuberculosis (Primary Dx) Start: 02-27-2022 Refill Melissa Ledesma MD Work Phone: OB/Gynecology Comment on above: Refill Request Start: 02-22-2022 Telephone encounter Sera blanco MD Work Phone: [facility] [place] Comment on above: Orders Start: 02-21-2022 End: 02-21-2022 Patient encounter procedure Sarah Jaimes APRN.CNP Work Phone: Internal [facility] [place] Comment on above: Rash and other nonsp ecific skin eruption (Primary Dx) Start: 12-21-2021 End: 12-21-2021 Subsequent hospital visit by physician X[facility] [place] Work Phone: Radiology Comment on above: Right wrist pain [M2 5.531] Start: 12-21-2021 End: 12-21-2021 Patient encounter procedure Christiane Leung APRN.SKIRT PANEL ASSEMBLER Work Phone: [facility] Comment on above: Right wrist pain (Pr imary Dx) Start: 11-28-2021 End: 11-28-2021 Patient encounter procedure Arti Pierre PA-C Work Phone: [facility] Comment on above: Sore throat (Primary Dx) Start: 11-27-2021 End: 11-27-2021 Patient encounter procedure Cindy Beckwith APRN.SKIRT PANEL ASSEMBLER Work Phone: [facility] Comment on above: Sore throat (Primary Dx); At increased risk of exposure to COVID-19 virus Start: 09-11-2021 End: 09-11-2021 Patient encounter procedure Sarah Jaimes APRN.SKIRT PANEL ASSEMBLER Work Phone: Internal [facility] [place] Comment on above: Annual physical exam (Primary Dx); Fatigue, unspecified type; Chronic mixed headache syndrome; Chronic back pain, unspecified back location, unspecified back pain laterality Start: 01-31-2021 Telephone encounter Sera blanco MD Work Phone: Internal [facility] [place] Comment on above: Appointment Start: 08-20-2018 End: 09-17-2018 Patient requested procedure Sylvia Curran VP PATIENT.SKIRT PANEL ASSEMBLER Work Phone: [facility] Start: 12-12-2017 Emergency department patient visit UNKNOWN PROVIDER [facility] Start: 08-12-2017 End: 08-12-2017 Emergency department patient visit OZZIE MIRANDA [facility] Start: 09-18-2016 End: 10-24-2016 Ambulatory GAMAL MEDEROS [facility] Procedures Date Procedure Procedure Detail Performing Clinician Start: 09-29-2024 Urnls dip stick/tabl et rgnt non-auto w/o micrscp Melissa Ledesma MD Work Phone: Start: 09-02-2024 Urnls dip stick/tabl et rgnt non-auto w/o micrscp Melissa Ledesma MD Work Phone: Start: 07-23-2024 Antibody screen SERA SCOTT Comment on above: Order Comment: Speci men Type: BLOOD SPECIMENOrdering Facility: [facility] Address: [address] [place] [address] Performed By: #### T SPN ####CC MAIN BLOOD BANKCLIA [id number] [address] [place] Start: 05-26-2024 Us preg uterus after 1st trimest 02/11 gestation Christiane Guallpa APRN.CNM Work Phone: Start: 03-31-2024 Antibody screen SERA SCOTT Comment on above: Order Comment: Speci men Type: BLOOD SPECIMENOrdering Facility: [facility] Address: [address] [place] [address] Performed By: #### T SPN ####CC MAIN BLOOD BANKCLIA [id number] [address] [place] Start: 03-31-2024 Us preg uterus after 1st trimest 02/11 gestation Christiane Guallpa APRN.CNM Work Phone: Start: 03-02-2024 Us uterus l imited 1/> fetuses Christiane Guallpa APRN.CNM Work Phone: Start: 11-15-2023 Us pelvic nonobstetr ic real-time image complete Rubin Davila VP PATIENT.SKIRT PANEL ASSEMBLER Work Phone: Start: 06-26-2023 Us abdominal real ti me w/image limited Lesley Alva VP PATIENT.SKIRT PANEL ASSEMBLER Work Phone: Start: 02-19-2023 X-ray of lumbar spin e, two or three views Dr. Sera Scott Work Phone: Start: 02-16-2023 MRI of lumbar spine Dr. Sera Scott Work Phone: Start: 01-10-2023 X-ray of lumbar spin e, two or three views Dr. Sera Scott Work Phone: Start: 08-08-2022 Us abdominal real ti me w/image limited Jennifer Mistry VP PATIENT.[employer] ARCHITECT Work Phone: Start: 07-25-2022 CT of abdomen and pe lvis without contrast Start: 03-27-2022 PFIZER-BIONTECH COVI D-19 PRIMARY SERIES VACCINE, AGE 12+ YR Sera Scott MD Work Phone: Start: 12-21-2021 Radex wrist complete minimum 3 views Christiane Leung VP PATIENT.SKIRT PANEL ASSEMBLER Work Phone: Start: 11-28-2021 STREP A MOLECULAR (POC) Arti Pierre PA-C Work Phone: Start: 11-27-2021 STREP A MOLECULAR (POC) Cindy Beckwith VP PATIENT.SKIRT PANEL ASSEMBLER Work Phone: Start: 09-11-2021 Adult depression scr eening assessment Sarah Jaimes VP PATIENT.SKIRT PANEL ASSEMBLER Work Phone: Start: 07-08-2020 Adult depression scr eening assessment Sera Scott MD Work Phone: Plan of Treatment Date Care Activity Detail Author Start: 07-23-2034 Urine microalbumin profile DTaP,Tdap,Td Vaccine (9 - Td or Tdap) [facility] Start: 01-13-2029 Urine microalbumin profile [facility] Start: 04-25-2025 PAP TESTING PAP TESTING [facility] Start: 04-25-2025 Screening for malign ant neoplasm of cervix [facility] Start: 11-06-2024 End: 11-06-2024 Patient encounter procedure 11/06/2024 8:15 AM EDT Office Visit OB/Gynecology [address] [place] [address] Rubin Davila VP PATIENT.[facility] [address] [id number] Annual OB/Gynecology Comment on above: Annual Start: 10-14-2024 End: 10-14-2024 Patient encounter procedure 10/14/2024 2:20 PM EDT Routine Office Visit OB/Gynecology [address] [place] [address] Melissa Sanderson MD [address] [place] [address] 40 week appt OB/Gynecology Comment on above: 40 week appt Start: 10-12-2024 Influenza vaccination Influenza Vacc ine (#1) [facility] Start: 10-07-2024 End: 10-07-2024 Patient encounter procedure 10/07/2024 10:00 AM EDT Routine Office Visit OB/Gynecology [address] [place] [address] Melissa Sanderson MD [address] [place] [address] 39 week appointment OB/Gynecology Comment on above: 39 week appointment Start: 10-05-2024 End: 10-05-2024 Patient encounter procedure 10/05/2024 3:30 PM EDT Routine Office Visit Maternal Medicine [address] [place] [address] Growth Maternal Medicine Comment on above: Growth Start: 09-29-2024 End: 09-29-2024 Patient encounter procedure 09/29/2024 2:20 PM EDT Routine Office Visit OB/Gynecology [address] [place] [address] Melissa Sanderson MD [address] [place] [address] 38 week appointment OB/Gynecology Comment on above: 38 week appointment Start: 09-29-2024 End: 09-29-2025 OBSTETRIC ULTRASOUND WHI OBSTETRIC ULTRASOUND WHI Anc Imaging Routine 38 weeks gestation of (HCC) Uterine size-date discrepancy, third trimester (HCC) Expected: 09/29/2024, Expires: 09/29/2025 [facility] Work Phone: Comment on above: Expected: 09/29/2024 , Expires: 09/29/2025 Start: 09-23-2024 End: 09-23-2024 Patient encounter procedure 09/23/2024 8:40 AM EDT Routine Office Visit OB/Gynecology [address] [place] [address] Melissa Sanderson MD [address] [place] [address] 37 week appointment OB/Gynecology Comment on above: 37 week appointment Start: 09-16-2024 End: 09-16-2024 Patient encounter procedure 09/16/2024 2:50 PM EDT Routine Office Visit OB/Gynecology [address] [place] [address] Melissa Sanderson MD [address] [place] [address] OB OB/Gynecology Comment on above: OB Start: 09-16-2024 End: 09-16-2024 Patient encounter procedure 09/16/2024 9:40 AM EDT Routine Office Visit OB/Gynecology [address] [place] [address] Melissa Sanderson MD [address] [place] [address] OB OB/Gynecology Comment on above: OB Start: 09-02-2024 End: 09-02-2024 Patient encounter procedure 09/02/2024 1:40 PM EDT Routine Office Visit OB/Gynecology [address] [place] [address] Melissa Sanderson MD [address] [place] [address] OB OB/Gynecology Comment on above: OB Start: 09-02-2024 End: 09-02-2024 Patient encounter procedure 09/02/2024 9:50 AM EDT Routine Office Visit OB/Gynecology [address] [place] [address] Melissa Sanderson MD [address] [place] [address] OB OB/Gynecology Comment on above: OB Start: 08-24-2024 End: 08-24-2024 Patient encounter procedure 08/24/2024 2:50 PM EDT Routine Office Visit OB/Gynecology [address] [place] [address] Melissa Sanderson MD [address] [place] [address] OB OB/Gynecology Comment on above: OB Start: 08-19-2024 End: 08-19-2024 Patient encounter procedure 08/19/2024 9:40 AM EDT Routine Office Visit OB/Gynecology [address] [place] [address] Melissa Sanderson MD [address] [place] [address] OB OB/Gynecology Comment on above: OB Start: 08-06-2024 End: 08-06-2024 Patient encounter procedure 08/06/2024 1:40 PM EDT Routine Office Visit OB/Gynecology [address] [place] [address] Sreedhar Shields MD [address] [place] [address] Ob OB/Gynecology Comment on above: Ob Start: 08-06-2024 End: 08-06-2024 Patient encounter procedure 08/06/2024 11:10 AM EDT Routine Office Visit OB/Gynecology [address] [place] [address] Sreedhar Shields MD [address] [place] [address] Ob OB/Gynecology Comment on above: Ob Start: 07-31-2024 End: 07-31-2024 ambulatory 07/31/2024 7:30 AM EDT Results Only [place] [facility] Laboratory [address] [place] [address] 3 hour glucose [facility] Comment on above: 3 hour glucose Start: 07-25-2024 End: 10-24-2024 ANEMIA REFLEX PANEL ANEMIA REFLEX PANEL Lab Routine 24 weeks gestation of ([facility]) Encounter for supervision of other normal in second trimester ([facility]) Expected: 07/25/2024 (Approximate), Expires: 10/24/2024 [facility] Comment on above: Expected: 07/25/2024 (Approximate), Expires: 10/24/2024 Start: 07-25-2024 End: 06-24-2025 GESTATIONAL GLUCOSE SCREEN, 1-HOUR, 50 GRAM, NON-FASTING GESTATIONAL GLUCOSE SCREEN, 1-HOUR, 50 GRAM, NON-FASTING Lab Routine Screening for diabetes mellitus 24 weeks gestation of ([facility]) Expected: 07/25/2024 (Approximate), Expires: 06/24/2025 [facility] Work Phone: Comment on above: Expected: 07/25/2024 (Approximate), Expires: 06/24/2025 Start: 07-25-2024 End: 06-24-2025 SYPHILIS TREPONEMAL W/REFLEX SYPHILIS TREPONEMAL W/REFLEX Lab Routine 24 weeks gestation of ([facility]) Encounter for supervision of other normal in second trimester ([facility]) Expected: 07/25/2024 (Approximate), Expires: 06/24/2025 [facility] Comment on above: Expected: 07/25/2024 (Approximate), Expires: 06/24/2025 Start: 07-25-2024 End: 10-24-2024 TYPE + SCREEN TYPE + SCREEN Blood Bank Routine 24 weeks gestation of (HCC) Encounter for supervision of other normal in second trimester (HCC) Expected: 07/25/2024 (Approximate), Expires: 10/24/2024 [facility] Comment on above: Expected: 07/25/2024 (Approximate), Expires: 10/24/2024 Start: 07-23-2024 End: 07-23-2024 Patient encounter procedure 07/23/2024 8:10 AM EDT Routine Office Visit OB/Gynecology [address] [place] [address] Melissa Sanderson MD [address] [place] [address] OB Routine OB/Gynecology Comment on above: OB Routine Start: 06-24-2024 End: 06-24-2024 Patient encounter procedure 06/24/2024 4:20 PM EDT Routine Office Visit OB/Gynecology [address] [place] [address] Melissa Sanderson MD [address] [place] [address] OB Routine OB/Gynecology Comment on above: OB Routine Start: 05-26-2024 End: 05-26-2024 Patient encounter procedure Maternal Medicine Comment on above: Anatomy Anatomy/OB Start: 04-30-2024 End: 04-30-2024 Patient encounter procedure 04/30/2024 4:20 PM EDT Routine Office Visit OB/Gynecology [address] [place] [address] Melissa Sanderson MD [address] [place] [address] OB OB/Gynecology Comment on above: OB Start: 04-02-2024 End: 04-02-2024 Patient encounter procedure 04/02/2024 2:50 PM EST Routine Office Visit OB/Gynecology [address] [place] [address] Nazanin Beckwith MD [address] [place] [place] [address] Nuchal /OB OB/Gynecology Comment on above: Nuchal /OB Start: 04-02-2024 End: 07-02-2024 Chromosome 21 trisomy [Presence] in Blood or Tissue by Cytogenetics [facility] Work Phone: Comment on above: Expected: 04/02/2024 , Expires: 07/02/2024 Start: 03-31-2024 End: 03-31-2024 Patient encounter procedure 03/31/2024 3:30 PM EST Routine Office Visit Maternal Medicine [address] [place] [address] [facility] Comment on above: Nuchal Start: 03-08-2024 Covid-19 Vaccine () Covid-19 Vaccine () [facility] Comment on above: Postponed from 10/12 (Declined at this time) Start: 03-02-2024 End: 06-01-2024 ANEMIA REFLEX PANEL ANEMIA REFLEX PANEL Lab Routine with uncertain dates in first trimester Expected: 03/02/2024, Expires: 06/01/2024 [facility] Work Phone: Comment on above: Expected: 03/02/2024 , Expires: 06/01/2024 Start: 03-02-2024 End: 06-01-2024 Hemoglobin A1c in Blood HEMOGLOBIN A1C Lab Routine with uncertain dates in first trimester Expected: 03/02/2024, Expires: 06/01/2024 [facility] Comment on above: Expected: 03/02/2024 , Expires: 06/01/2024 Start: 03-02-2024 End: 06-01-2024 HEMOGLOBIN EVALUATION CASCADE HEMOGLOBIN EVALUATION CASCADE Lab Routine Supervision of other normal Expected: 03/02/2024, Expires: 06/01/2024 [facility] Comment on above: Expected: 03/02/2024 , Expires: 06/01/2024 Start: 03-02-2024 End: 06-01-2024 Hepatitis B virus surface Ag [Presence] in Serum HEPATITIS B SURFACE ANTIGEN Lab Routine with uncertain dates in first trimester Expected: 03/02/2024, Expires: 06/01/2024 [facility] Comment on above: Expected: 03/02/2024 , Expires: 06/01/2024 Start: 03-02-2024 End: 06-01-2024 Hepatitis C virus Ab [Presence] in Serum HEPATITIS C ANTIBODY IA WITH CONFIRMATION Lab Routine with uncertain dates in first trimester Expected: 03/02/2024, Expires: 06/01/2024 [facility] Comment on above: Expected: 03/02/2024 , Expires: 06/01/2024 Start: 03-02-2024 End: 06-01-2024 HIV 1+2 Ab [Presence] in Serum or Plasma by Immunoassay HIV 1/2 COMBO WITH REFLEX TO DIFFERENTIATION Lab Routine with uncertain dates in first trimester Expected: 03/02/2024, Expires: 06/01/2024 [facility] Comment on above: Expected: 03/02/2024 , Expires: 06/01/2024 Start: 03-02-2024 End: 03-02-2025 OBSTETRIC ULTRASOUND WHI OBSTETRIC ULTRASOUND WHI Anc Imaging Routine with uncertain dates in first trimester Expected: 03/02/2024, Expires: 03/02/2025 [facility] Comment on above: Expected: 03/02/2024 , Expires: 03/02/2025 Start: 03-02-2024 End: 06-01-2024 RUBELLA IGG ANTIBODY RUBELLA IGG ANTIBODY Lab Routine with uncertain dates in first trimester Expected: 03/02/2024, Expires: 06/01/2024 [facility] Comment on above: Expected: 03/02/2024 , Expires: 06/01/2024 Start: 03-02-2024 End: 06-01-2024 SYPHILIS TREPONEMAL W/REFLEX SYPHILIS TREPONEMAL W/REFLEX Lab Routine with uncertain dates in first trimester Expected: 03/02/2024, Expires: 06/01/2024 [facility] Comment on above: Expected: 03/02/2024 , Expires: 06/01/2024 Start: 03-02-2024 End: 06-01-2024 TYPE + SCREEN TYPE + SCREEN Blood Bank Routine with uncertain dates in first trimester Expected: 03/02/2024, Expires: 06/01/2024 [facility] Comment on above: Expected: 03/02/2024 , Expires: 06/01/2024 Start: 11-15-2023 End: 11-15-2023 ambulatory 11/15/2023 8:30 AM EDT Procedure OB/Gynecology [address] [place] [address] Dyspareunia in female [N94.10] OB/Gynecology Comment on above: Dyspareunia in femal e [N94.10] Start: 11-07-2023 End: 11-07-2023 Patient encounter procedure 11/07/2023 3:15 PM EDT Office Visit OB/Gynecology [address] [place] [address] Rubin Davila APRN.SKIRT PANEL ASSEMBLER [address] [place] [address] Pelvic pain OB/Gynecology Comment on above: Pelvic pain Start: 11-07-2023 End: 11-06-2024 US Pelvis PELVIC US WHI Anc Imaging Routine Dyspareunia in female Expected: 11/07/2023, Expires: 11/06/2024 [facility] Work Phone: Comment on above: Expected: 11/07/2023 , Expires: 11/06/2024 Start: 10-13-2023 Covid-19 Vaccine ( season) Covid-19 Vaccine ( season) [facility] Start: 10-13-2023 Influenza vaccination Influenza Vacc ine (#1) [facility] Start: 09-05-2023 End: 09-05-2023 Nursing evaluation of patient and report 09/05/2023 11:15 AM EDT Nurse Visit Family Medicine [place] [address] [place] [address] Nurse, Fl [address] [place] [address] PPD read Family Medicine [place] Comment on above: PPD read Start: 09-02-2023 End: 09-02-2023 Nursing evaluation of patient and report 09/02/2023 3:45 PM EDT Nurse Visit Family Medicine [place] [address] [place] [id number] Nurse, Fl [address] [place] [id number] PPD Family Medicine [place] Comment on above: PPD Start: 02-11-2023 Behavioral Health Screening Behavioral Health Screening [facility] Start: 10-12-2022 Covid-19 Vaccine () Covid-19 Vaccine () [facility] Start: 10-12-2022 Influenza vaccination C [facility] Start: 09-11-2022 Adult depression screening assessment DEPRESSION SCREENING [facility] Start: 09-11-2022 COVID-19 VACCINE (#1) COVID-19 VACCI NE (#1) [facility] Comment on above: Postponed from 12/15 (Declined at this time) Start: 09-11-2022 HEPATITIS C SCREENING HEPATITIS C [facility] Comment on above: Postponed from 06/14 (Declined at this time) Start: 09-11-2022 MENINGOCOCCAL B: Consider based on risk (1 of 2 - Risk Bexsero 2-dose series) MENINGOCOCCAL B: Consider based on risk (1 of 2 - Risk Bexsero 2-dose series) [facility] Comment on above: Postponed from 06/14 (Declined at this time) Start: 09-11-2022 PAP TESTING PAP TESTING [facility] Comment on above: Postponed from 08/20 (Declined at this time) Start: 08-10-2022 Influenza vaccination INFLUENZA (#1) [facility] Comment on above: Postponed from 10/12 (Declined at this time) Start: 08-06-2022 End: 10-06-2022 Amylase [Enzymatic activity/volume] in Serum or Plasma AMYLASE BLD Lab Routine Acute pancreatitis, unspecified complication status, unspecified pancreatitis type Expected: 08/06/2022, Expires: 10/06/2022 [facility] Work Phone: Comment on above: Expected: 08/06/2022 , Expires: 10/06/2022 Start: 08-06-2022 End: 10-06-2022 Lipase [Enzymatic activity/volume] in Serum or Plasma LIPASE BLD Lab Routine Acute pancreatitis, unspecified complication status, unspecified pancreatitis type Expected: 08/06/2022, Expires: 10/06/2022 [facility] Work Phone: Comment on above: Expected: 08/06/2022 , Expires: 10/06/2022 Start: 05-22-2022 COVID-19 VACCINE (3 - Booster for Pfizer series) COVID-19 VACCINE (3 - Booster for Pfizer series) [facility] Start: 05-22-2022 COVID-19 VACCINE (3 - Pfizer series) COVID-19 VACCINE (3 - Pfizer series) [facility] Start: 03-21-2022 COVID-19 VACCINE (2 - Pfizer series) COVID-19 VACCINE (2 - Pfizer series) [facility] Start: 02-11-2022 DEPRESSION ASSESSMENT DEPRESSION ASS ESSMENT [facility] Start: 11-27-2021 End: 12-11-2021 Influenza virus A and B RNA and SARS-CoV-2 (COVID-19) N gene panel - Respiratory specimen by JOSE with probe detection COVID WITH FLUA+B, ROUTINE Microbiology Routine Sore throat At increased risk of exposure to COVID-19 virus Expected: 11/27/2021, Expires: 12/11/2021 [facility] Work Phone: Comment on above: Expected: 11/27/2021 , Expires: 12/11/2021 Start: 10-12-2021 Influenza vaccination C [facility] Start: 09-11-2021 End: 11-11-2021 25-hydroxyvitamin D3 [Mass/volume] in Serum or Plasma [facility] Work Phone: Comment on above: Expected: 09/11/2021 , Expires: 11/11/2021 Start: 09-11-2021 End: 11-11-2021 CBC W Auto Differential panel - Blood [facility] Work Phone: Comment on above: Expected: 09/11/2021 , Expires: 11/11/2021 Start: 09-11-2021 End: 11-11-2021 Cobalamin (Vitamin B12) [Mass/volume] in Serum or Plasma [facility] Work Phone: Comment on above: Expected: 09/11/2021 , Expires: 11/11/2021 Start: 09-11-2021 End: 11-11-2021 Comprehensive metabolic 2000 panel - Serum or Plasma [facility] Work Phone: Comment on above: Expected: 09/11/2021 , Expires: 11/11/2021 Start: 09-11-2021 End: 11-11-2021 Thyrotropin [Units/volume] in Serum or Plasma [facility] Work Phone: Comment on above: Expected: 09/11/2021 , Expires: 11/11/2021 Start: 08-20-2021 PAP TESTING PAP TESTING [facility] Start: 07-08-2021 Adult depression screening assessment DEPRESSION SCREENING [facility] Start: 02-11-2021 DEPRESSION ASSESSMENT DEPRESSION ASS ESSMENT [facility] Start: 08-21-2019 CHLAMYDIA SCREENING (18-24) CHLAMYDIA SCREENING (18-24) [facility] Start: 08-21-2019 GC (GONORRHEA) SCREENING (18-24) GC (GONORRHEA) SCREENING (18-24) [facility] Start: 06-15-2015 Anxiety Screening Anxiety Screening [facility] Start: 06-15-2015 Depression Screening Depression Scre ening [facility] Start: 06-15-2015 HEPATITIS C SCREENING HEPATITIS C [facility] Start: 06-15-2015 Hepatitis C screening Hepatitis C [facility] Start: 06-15-2011 PEDS TO ADULT TRANSITION ANNUAL ASSESSMENT PEDS TO ADULT TRANSITION ANNUAL ASSESSMENT [facility] Start: 2009 PEDS TO ADULT TRANSITION INITIAL DISCUSSION PEDS TO ADULT TRANSITION INITIAL DISCUSSION [facility] Start: 06-15-2007 MENINGOCOCCAL B: Consider based on risk (1 of 2 - Risk Bexsero 2-dose series) MENINGOCOCCAL B: Consider based on risk (1 of 2 - Risk Bexsero 2-dose series) [facility] Start: 2002 COVID-19 VACCINE (1) COVID-19 VACCIN E (1) [facility] Bacteria identified in Urine by Culture BACTERIAL CULTURE, URINE Microbiology Routine with uncertain dates in first trimester 03/02/2024 9:34 AM [facility] BACTERIAL VAGINOSIS NAAT BACTERIAL VAGINOSIS NAAT Lab Routine with uncertain dates in first trimester 03/02/2024 9:34 AM [facility] NORMAN/TRICHOMONAS NAAT NORMAN/TRICHOMONAS NAAT Lab Routine with uncertain dates in first trimester 03/02/2024 9:34 AM [facility] Chlamydia trachomatis+Neisseria gonorrhoeae DNA [Presence] in Unspecified specimen by JOSE with probe detection GONORRHEA/CHLAMYDIA NAAT Lab Routine with uncertain dates in first trimester 03/02/2024 9:34 AM [facility] ECG COMPLETE ECG COMPLETE ECG Routine Rapid heartbeat Palpitations Ordered: 06/06/2023 [facility] Work Phone: Comment on above: Ordered: 06/06/2023 OUTSIDE VENDOR CARDI AC OUTPATIENT EVENT RECORDER OUTSIDE VENDOR CARDIAC OUTPATIENT EVENT RECORDER Holter Routine Rapid heartbeat Palpitations VERENICE (generalized anxiety disorder) Ordered: 06/19/2023 [facility] Work Phone: Comment on above: Ordered: 06/19/2023 PAP TEST PAP TEST Lab Rou norberto Special screening examination for human papillomavirus (HPV) Screening for cervical cancer Gynecologic exam normal 04/25/2022 11:47 AM EDT [facility] Work Phone: Patient Education ED Flank Pain, Uncertain Cause [facility] Work Phone: Patient referral [facility] Work Phone: PPD (TB INTRADERMAL 55836) B/O PPD (TB INTRADERMAL 91992) B/O Procedures Routine Screening examination for pulmonary tuberculosis Ordered: 02/23/2022 [facility] Work Phone: Comment on above: Ordered: 02/23/2022 PPD (TB INTRADERMAL 50091) B/O PPD (TB INTRADERMAL 86083) B/O Procedures Routine Screening examination for pulmonary tuberculosis Ordered: 03/05/2022 [facility] Work Phone: Comment on above: Ordered: 03/05/2022 PPD (TB INTRADERMAL 31569) B/O PPD (TB INTRADERMAL 19851) B/O Procedures Routine Screening-pulmonary TB Ordered: 08/20/2023 [facility] Work Phone: Comment on above: Ordered: 08/20/2023 URINE OB DIP B/O URINE OB DIP B/ O Lab Routine Encounter for supervision of other normal in third trimester (HCC) Anemia complicating , third trimester (HCC) History of delivery by vacuum extraction, currently (HCC) Ordered: 09/23/2024 [facility] Work Phone: Comment on above: Ordered: 09/23/2024 End: 09-05-2023 US ABD RIGHT UPPER QUADRANT US ABD RIGHT UPPER QUADRANT Radiology Routine Acute pancreatitis, unspecified complication status, unspecified pancreatitis type 1 Occurrences starting 08/06/2022 until 09/05/2023 [facility] Work Phone: Comment on above: 1 Occurrences starti ng 08/06/2022 until 09/05/2023 End: 09-05-2023 Us transvaginal US FEMALE PELVIS TRANSVAG Radiology Routine Pelvic pain in female 1 Occurrences starting 08/06/2022 until 09/05/2023 [facility] Work Phone: Comment on above: 1 Occurrences starti ng 08/06/2022 until 09/05/2023 [facility] Immunizations Immunization Date Immunization Notes Care Provider Fa [facility] 07-23-2024 RHO(D) immune globul in- IV or IM Melissa Ledesma MD Work Phone: [facility] 07-23-2024 tetanus toxoid, redu tiny diphtheria toxoid, and acellular pertussis vaccine, adsorbed Melissa Ledesma MD Work Phone: [facility] 10-18-2023 influenza virus vacc ine, unspecified formulation Melissa Ledesma MD Work Phone: [facility] 09-02-2023 tuberculin skin test ; purified protein derivative solution, intradermal Rubin Davila APRN.CNP Work Phone: [facility] 10-24-2022 influenza virus vacc ine, unspecified formulation Sera Scott MD Work Phone: [facility] 03-27-2022 COVID-19 original vaccine, age 12+ yr, monovalent (PFIZER-BIONTECH - BAER TOP) Fl Nurse Work Phone: [facility] Work Phone: 03-13-2022 influenza, injectabl e, quadrivalent, contains preservative Mi Nurse Work Phone: [facility] Work Phone: 03-13-2022 influenza, injectabl e, quadrivalent, preservative free Us 2 Work Phone: [facility] 03-13-2022 influenza virus vacc ine, unspecified formulation Us 2 Work Phone: [facility] 03-12-2022 tuberculin skin test ; purified protein derivative solution, intradermal Rubin Haury VP PATIENT.SKIRT PANEL ASSEMBLER Work Phone: [facility] 02-28-2022 COVID-19 original vaccine, age 12+ yr, monovalent (PFIZER-BIONTECH - BAER TOP) Fl Nurse Work Phone: [facility] Work Phone: 02-28-2022 tuberculin skin test ; purified protein derivative solution, intradermal Rubin Haury VP PATIENT.SKIRT PANEL ASSEMBLER Work Phone: [facility] 05-09-2020 Human Papillomavirus 9-valent vaccine Sera Scott MD Work Phone: [facility] 03-06-2019 measles, mumps and rubella virus vaccine [facility] 01-13-2019 RHO(D) immune globul in- IV or IM Sera Scott MD Work Phone: [facility] Work Phone: 01-13-2019 tetanus toxoid, redu tiny diphtheria toxoid, and acellular pertussis vaccine, adsorbed Sera Scott MD Work Phone: [facility] Work Phone: 01-09-2019 tetanus toxoid, redu tiny diphtheria toxoid, and acellular pertussis vaccine, adsorbed [facility] 12-03-2018 Influenza virus vaccine [facility] 12-03-2018 influenza, injectabl e, quadrivalent, contains preservative Sera Scott MD Work Phone: [facility] 12-07-2016 influenza, injectabl e, quadrivalent, contains preservative Sera Scott MD Work Phone: [facility] 01-05-2015 influenza, injectabl e, quadrivalent, contains preservative Sera Scott MD Work Phone: [facility] 01-05-2015 influenza, seasonal, injectable Sera Scott MD Work Phone: [facility] Work Phone: 02-01-2014 influenza, injectabl e, quadrivalent, preservative free Sera Scott MD Work Phone: [facility] Work Phone: 02-01-2014 meningococcal polysaccharide (groups A, C, Y and W-135) diphtheria toxoid conjugate vaccine (MCV4P) Sera Scott MD Work Phone: [facility] Work Phone: 11-14-2012 influenza virus vacc ine, unspecified formulation Sera Scott MD Work Phone: [facility] Work Phone: 06-03-2012 human papilloma viru s vaccine, quadrivalent Sera Scott MD Work Phone: [facility] Work Phone: 06-03-2012 varicella virus vaccine Anthony Scott MD Work Phone: [facility] Work Phone: 01-22-2012 human papilloma viru s vaccine, quadrivalent Sera Scott MD Work Phone: [facility] Work Phone: 11-14-2011 human papilloma viru s vaccine, quadrivalent Sera Scott MD Work Phone: [facility] Work Phone: 11-14-2011 influenza virus vacc ine, unspecified formulation Sera Scott MD Work Phone: [facility] Work Phone: 08-08-2010 Meningococcal, MCV4, unspecified conjugate formulation(groups A, C, Y and W-135) Sera Scott MD Work Phone: [facility] 08-08-2010 tetanus toxoid, redu tiny diphtheria toxoid, and acellular pertussis vaccine, adsorbed Sera Scott MD Work Phone: [facility] 06-02-2003 diphtheria, tetanus toxoids and acellular pertussis vaccine Sera Scott MD Work Phone: [facility] Work Phone: 06-02-2003 measles, mumps and rubella virus vaccine Sera Scott MD Work Phone: [facility] Work Phone: 06-02-2003 poliovirus vaccine, inactivated Sera Scott MD Work Phone: [facility] Work Phone: 10-25-1998 diphtheria, tetanus toxoids and acellular pertussis vaccine Sera Scott MD Work Phone: [facility] Work Phone: 10-25-1998 haemophilus influenz ae type b vaccine, HbOC conjugate Sera Scott MD Work Phone: [facility] Work Phone: 07-07-1998 measles, mumps and rubella virus vaccine Sera Scott MD Work Phone: [facility] Work Phone: 07-07-1998 trivalent poliovirus vaccine, live, oral Sera Scott MD Work Phone: [facility] Work Phone: 07-07-1998 varicella virus vaccine Anthony Scott MD Work Phone: [facility] Work Phone: 1997 diphtheria, tetanus toxoids and acellular pertussis vaccine Sera Scott MD Work Phone: [facility] Work Phone: 1997 haemophilus influenz ae type b vaccine, HbOC conjugate Sera Scott MD Work Phone: [facility] Work Phone: 1997 hepatitis B vaccine, pediatric or pediatric/adolescent dosage Sera Scott MD Work Phone: [facility] Work Phone: 1997 diphtheria, tetanus toxoids and acellular pertussis vaccine Sera Scott MD Work Phone: [facility] Work Phone: 1997 haemophilus influenz ae type b vaccine, HbOC conjugate Sera Scott MD Work Phone: [facility] Work Phone: 1997 poliovirus vaccine, inactivated Sera Scott MD Work Phone: [facility] Work Phone: 1997 diphtheria, tetanus toxoids and acellular pertussis vaccine Sera Scott MD Work Phone: [facility] Work Phone: 1997 haemophilus influenz ae type b vaccine, HbOC conjugate Sera Scott MD Work Phone: [facility] Work Phone: 1997 poliovirus vaccine, inactivated Sera Scott MD Work Phone: [facility] Work Phone: 1997 hepatitis B vaccine, pediatric or pediatric/adolescent dosage Sera Scott MD Work Phone: [facility] Work Phone: 1997 hepatitis B vaccine, pediatric or pediatric/adolescent dosage Sera Scott MD Work Phone: [facility] Work Phone: Payers Date Payer Category Payer Self-pay [id number] 2011 Medicaid [facility] MEDICAID [id number] 2011-Present [phone] [address] [place] [address] Medicaid [id number] 2011 Medicaid [id number] 2011 Unknown [id number] 2011 Unknown [id number] 1997 Unknown [id number] Unknown Unknown [id number] Unknown [id number] Unknown [id number] Unknown [id number] Unknown [id number] Unknown [id number] Unknown [id number] Unknown [id number] Unknown [id number] Unknown [id number] Unknown [id number] Unknown [id number] Social History Date Type Detail Facility Start: 03-29-2016 End: 11-27-2021 Tobacco smoking status NHIS Never smoked tobacco [facility] Start: 03-29-2016 End: 11-27-2021 Tobacco use and exposure Smokeless tobacco non-user [facility] Start: 10-23-2020 End: 06-24-2024 Alcohol intake Current non-drinker of alcohol (finding) [facility] Start: 07-08-2020 End: 02-21-2022 History SDOH Alcohol Frequency 1 [facility] Start: 07-08-2020 End: 02-21-2022 History SDOH Alcohol Std Drinks 98 [facility] Start: 07-08-2020 End: 02-21-2022 History SDOH Social Connections Phone 5 [facility] Start: 07-08-2020 End: 09-10-2021 History SDOH Social Connections Get Together 4 [facility] Start: 07-08-2020 End: 02-21-2022 History SDOH Social Connections Membership 2 [facility] Start: 07-08-2020 History SDOH Social Connections Living 8 [facility] Start: 07-08-2020 End: 02-21-2022 History SDOH Physical Activity DPW 3 [facility] Start: 07-08-2020 History SDOH Physica l Activity MPS 6 [facility] Start: 07-08-2020 Education 15 [facility] Start: 1995 Sex Assigned At Female C [facility] Start: 03-04-2021 End: 12-21-2021 Exposure to SARS-CoV-2 (event) Not sure [facility] Start: 09-10-2021 History SDOH Social Connections Living 7 [facility] Start: 02-21-2022 History SDOH Alcohol Std Drinks 0 [facility] Start: 07-25-2022 End: 02-19-2023 Tobacco smoking status NHIS Unknown if ever smoked [facility] Start: 03-05-2019 None [facility] Start: 12-11-2018 Non-smoker [facility] Start: 02-21-2022 End: 07-23-2024 History of Social function [facility] Start: 02-21-2022 End: 07-23-2024 Social connection and isolation panel [facility] Do you belong to any clubs or organizations such as methodist groups, unions, fraternal or athletic groups, or school groups? No [facility] Start: 01-13-2012 How often do you att end meetings of the clubs or organizations you belong to? Patient refused [facility] Are you now , , , , never or living with a partner? Refused [facility] How often to you hav e a drink containing alcohol? Never [facility] Do you feel stress - tense, restless, nervous, or anxious, or unable to sleep at night because your mind is troubled all the time - these days [OSQ] Not at all [facility] (I/We) worried rosa elena er (my/our) food would run out before (I/we) got money to buy more. Never true [facility] Start: 04-24-2021 Gender identity Identifies as female gender (finding) [facility] Are you now , , , , never or living with a partner? Living with partner [facility] Do you feel stress - tense, restless, nervous, or anxious, or unable to sleep at night because your mind is troubled all the time - these days [OSQ] Only a little [facility] Are you now , , , , never or living with a partner? Never [facility] How often to you hav e a drink containing alcohol? Monthly or less [facility] How many standard drinks containing alcohol do you have on a typical day? 1 or 2 [facility] How hard is it for y ou to pay for the very basics like food, housing, medical care, and heating Not very hard [facility] Do you feel stress - tense, restless, nervous, or anxious, or unable to sleep at night because your mind is troubled all the time - these days [OSQ] To some extent [facility] Start: 01-19-2024 [facility] Start: 02-27-2024 Sexual orientation Heterosexual (maral dacosta) [facility] NEGATED: Highlighted row [facility] Goals Date Patient Goal Desired Activity /State Personal health goal Functional Status Date Assessment Result Facility 03-05-2014 Are you deaf, or do you have serious difficulty hearing No 03/05/2014 2:57 PM Mita Sellers RN No [facility] 03-05-2014 Are you blind, or do you have serious difficulty seeing, even when wearing glasses No 03/05/2014 2:57 PM Mita Sellers RN No [facility] 03-05-2014 Do you have serious difficulty walking or climbing stairs No 03/05/2014 2:57 PM Mita Sellers RN No [facility] 03-05-2014 Do you have difficul ty dressing or bathing No 03/05/2014 2:57 PM Mita Sellers RN No [facility] 03-05-2014 Because of a physica l, mental, or emotional condition, do you have difficulty doing errands alone such as visiting a physician's office or shopping No 03/05/2014 2:57 PM Mita Sellers RN No [facility] Mental Status Date Assessment Result Facility 03-05-2014 Because of a physica l, mental, or emotional condition, do you have serious difficulty concentrating, remembering, or making decisions No 03/05/2014 2:57 PM Mita Sellers RN No [facility] Clinical Notes 01-14-2019 to 09-29-2024 Quick Notes - Melissa Sanderson MD - 09/29/2024 2:23 PM EDTPrenatal Quick Notes - Melissa Sanderson MD - 09/29/2024 2:23 PM EDTPatient InstructionsPatient Instructions Note Date & Type Note Facility 09-29-2024 Progress note Formatting of t his note might be different from the original. DM-Pt doing well. Denies vaginal Bleeding, Leaking fluid, or regular Contractions. Pt reports good movement Physical Exam: Gen: female in no apparent distress Abd: soft, Gravid. Non tender to palpation. See flow sheet Participation of a fellow, resident, medical student, or advanced practice provider student in performing the sensitive examination was discussed with the patient or authorized pharmacy services representative. The patient or authorized pharmacy services representative has agreed to proceed with the sensitive examination. @ 38.2 weeks Assessment & Plan Encounter for supervision of other normal in third trimester (HCC) Orders: URINE OB DIP B/O Anemia complicating , third trimester ([facility]) Orders: URINE OB DIP B/O History of delivery by vacuum extraction, currently ([facility]) Orders: URINE OB DIP B/O Uterine size-date discrepancy, third trimester ([facility]) Orders: OBSTETRIC ULTRASOUND WHI; Future 38 weeks gestation of ([facility]) Kick counts and labor reviewed RTO weekly Orders: URINE OB DIP B/O Melissa Martino MD [facility] 09-29-2024 Miscellaneous Notes DM-Pt doing well. Denies vaginal Bleeding, Leaking fluid, or regular Contractions. Pt reports good movement Physical Exam: Gen: female in no apparent distress Abd: soft, Gravid. Non tender to palpation. See flow sheet Participation of a fellow, resident, medical student, or advanced practice provider student in performing the sensitive examination was discussed with the patient or authorized pharmacy services representative. The patient or authorized pharmacy services representative has agreed to proceed with the sensitive examination. @ 38.2 weeks Assessment & Plan Encounter for supervision of other normal in third trimester (HCC) Orders: URINE OB DIP B/O Anemia complicating , third trimester ([facility]) Orders: URINE OB DIP B/O History of delivery by vacuum extraction, currently ([facility]) Orders: URINE OB DIP B/O Uterine size-date discrepancy, third trimester ([facility]) Orders: OBSTETRIC ULTRASOUND WHI; Future 38 weeks gestation of ([facility]) Kick counts and labor reviewed RTO weekly Orders: URINE OB DIP B/O Melissa Martino MD documented in this encounter [facility] 09-29-2024 Instructions Franc Hyatt MA - 09/29/2024 2:19 PM EDT SEQUENTIAL SCREENINGS The [facility] offers sequential screenings for women who are interested in screenings for chromosomal abnormalities and certain defects during a . The sequential screen combines ultrasound and blood tests to determine the risk of chromosomal abnormalities, including Down's Syndrome (Trisomy 21) and Trisomy 18, as well as open neural tube defects including spina bifida. Ultrasound examination is performed between 11 weeks and 13 weeks gestational age. Blood tests are drawn after the ultrasound and again later in the between 15 and 21 weeks gestational age. Please let your physician know if you are interested in this testing. It will require an appointment with our semiconductor equipment technician. This is not an ultrasound performed by a physician in our office during a routine visit. SIGNS AND SYMPTOMS OF LABOR 1. Contractions every 10 minutes or more often 2. Clear, pink, or brownish fluid (water) leaking from vagina 3. Feeling that baby is pushing down, pressure 4. Low, dull backache 5. Cramps that feel like a period 6. Cramps with or without diarrhea If you notice any of the above symptoms, contact our office at [phone] and ask to speak with a nurse. After hours, you can call doctors registry at [phone] OR call [facility] at [phone] and ask to have the doctor avionics systems repairer paged. If you consider this an emergency, dial 9-1-4 or go to your nearest emergency department. NEED HELP? Are you dealing with a violent or abusive relationship? Are you a victim of rape or sexual assult? Call [facility] ([place]) 24 hour Crisis Hotline: 504.566.4560 or 731-316-7411. MANUAL Your Guide to a Healthy manual is now on-line. Visit [email or web address] to download your free copy documented in this encounter [facility] 09-28-2024 Note HNO ID: [id number] Author: ELTON BURKETT, ? Service: ? Author Type: Patient Bushing And Broach Operator Type: Progress Notes Filed: 09/28/2024 07:42 Note Text: POPULATION HEALTH NAVIGATION OUTREACH Action/FYI No outreach done added pediatriican via note Reason for Outreach Medicaid OB/Peds Care Gaps due: to PCP Visit Patient Contacted: Unable or unnecessary to reach patient: [place] hot stick man added Navigation Signature: Elton Burkett Population Health Navigator September 28, 2024 7:42 AM [facility] 09-28-2024 History of Presen t illness Narrative POPULATION HEALTH NAVIGATION OUTREACH Action/ No outreach done added pediatriican via note Reason for Outreach Medicaid OB/Peds Care Gaps due: to PCP Visit Patient Contacted: Unable or unnecessary to reach patient: hot stick man added Navigation Signature: Elton Burkett Population Health Navigator September 28, 2024 7:42 AM documented in this encounter [facility] 09-28-2024 Note Patient Outreach (NE TNAV) LOUANN CLEMENTS ([id number]) 1995 F Date Time Provider Department 09/28/24 ELTON BURKETT During your visit today, we recorded the following information about you: Elton Burkett 09/28/2024 7:42 AM Signed POPULATION HEALTH NAVIGATION OUTREACH Action/ No outreach done added pediatriican via note Reason for Outreach Medicaid OB/Peds Care Gaps due: to PCP Visit Patient Contacted: Unable or unnecessary to reach patient: [place] hot stick man added Navigation Signature: Elton Burkett Population Health Navigator September 28, 2024 7:42 AM Allergies As of Date: 09/28/2024 Noted Allergy Reaction PUMPKIN 03/08/2023 9 - Itching Comments: Swells itchy , hives Date Reviewed: 09/23/2024 Reviewed by: Franc Hyatt MA - Fully Assessed Reason for Visit: Population Health Navigation Outreach [3910] Cmt: to PCP/OB Prescriptions as of 09/28/2024 - ferrous sulfate 325 mg (65 mg iron) tablet Take 325 mg by mouth. - aspirin, enteric coated (ECOTRIN LOW STRENGTH) 81 mg EC tablet Take 1 tablet by mouth once daily. - Azelaic Acid 15 % gel APPLY TO THE FACE TWICE A DAY - lidocaine (LIDODERM) 5 % apply 1 patch topically to affected areas for 12 hours on and 12 hours off as needed - PNV#24/iron aa kay/folic acid (COMPLETE ORAL) Take 3 Pieces of gum by mouth once daily. 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 DM-Pt doing well. Denies vaginal Bleeding, Leaking fluid, or regular Contractions. Pt reports good movement Physical Exam: Gen: female in no apparent distress Abd: soft, Gravid. Non tender to palpation. See flow sheet @ 37.3 weeks Assessment & Plan Encounter for supervision of other normal in third trimester ([facility]) Orders: URINE OB DIP B/O Anemia complicating , third trimester ([facility]) Continue PO iron Orders: URINE OB DIP B/O History of delivery by vacuum extraction, currently ([facility]) Orders: URINE OB DIP B/O 37 weeks gestation of ([facility]) Kick counts and labor reviewed RTO 1 week Melissa Martino MD [facility] 08-13-2025 Miscellaneous Notes DM-Pt doing well. Denies vaginal Bleeding, Leaking fluid, or regular Contractions. Pt reports good movement Physical Exam: Gen: female in no apparent distress Abd: soft, Gravid. Non tender to palpation. See flow sheet @ 37.3 weeks Assessment & Plan Encounter for supervision of other normal in third trimester ([facility]) Orders: URINE OB DIP B/O Anemia complicating , third trimester ([facility]) Continue PO iron Orders: URINE OB DIP B/O History of delivery by vacuum extraction, currently ([facility]) Orders: URINE OB DIP B/O 37 weeks gestation of ([facility]) Kick counts and labor reviewed RTO 1 week Melissa Martino MD documented in this encounter [facility] 09-23-2024 Instructions Franc Hyatt MA - 09/23/2024 8:30 AM EDT SEQUENTIAL SCREENINGS The [facility] offers sequential screenings for women who are interested in screenings for chromosomal abnormalities and certain defects during a . The sequential screen combines ultrasound and blood tests to determine the risk of chromosomal abnormalities, including Down's Syndrome (Trisomy 21) and Trisomy 18, as well as open neural tube defects including spina bifida. Ultrasound examination is performed between 11 weeks and 13 weeks gestational age. Blood tests are drawn after the ultrasound and again later in the between 15 and 21 weeks gestational age. Please let your physician know if you are interested in this testing. It will require an appointment with our semiconductor equipment technician. This is not an ultrasound performed by a physician in our office during a routine visit. SIGNS AND SYMPTOMS OF LABOR 1. Contractions every 10 minutes or more often 2. Clear, pink, or brownish fluid (water) leaking from vagina 3. Feeling that baby is pushing down, pressure 4. Low, dull backache 5. Cramps that feel like a period 6. Cramps with or without diarrhea If you notice any of the above symptoms, contact our office at [phone] and ask to speak with a nurse. After hours, you can call doctors registry at [phone] OR call [facility] at [phone] and ask to have the doctor avionics systems repairer paged. If you consider this an emergency, dial 7-1-4 or go to your nearest emergency department. NEED HELP? Are you dealing with a violent or abusive relationship? Are you a victim of rape or sexual assult? Call [facility] ([place]) 24 hour Crisis Hotline: 160.783.7500 or 540-300-2277. MANUAL Your Guide to a Healthy manual is now on-line. Visit [email or web address] to download your free copy documented in this encounter [facility] 09-02-2024 Progress note Formatting of t his note might be different from the original. DM-Pt doing well. Denies vaginal Bleeding, Leaking fluid, or regular Contractions. Pt reports good movement Physical Exam: Gen: female in no apparent distress Abd: soft, Gravid. Non tender to palpation. See flow sheet @ 34.3 weeks Assessment & Plan Encounter for supervision of other normal in third trimester ([facility]) Orders: URINE OB DIP B/O Anemia complicating , third trimester ([facility]) Continue PO iron Orders: URINE OB DIP B/O History of delivery by vacuum extraction, currently ([facility]) Orders: URINE OB DIP B/O 34 weeks gestation of ([facility]) Kick counts reviewed RTO 2 weeks Orders: URINE OB DIP B/O Melissa Martino MD [facility] 09-02-2024 Miscellaneous Notes DM-Pt doing well. Denies vaginal Bleeding, Leaking fluid, or regular Contractions. Pt reports good movement Physical Exam: Gen: female in no apparent distress Abd: soft, Gravid. Non tender to palpation. See flow sheet @ 34.3 weeks Assessment & Plan Encounter for supervision of other normal in third trimester ([facility]) Orders: URINE OB DIP B/O Anemia complicating , third trimester (HCC) Continue PO iron Orders: URINE OB DIP B/O History of delivery by vacuum extraction, currently ([facility]) Orders: URINE OB DIP B/O 34 weeks gestation of ([facility]) Dudleymart orta reviewed RTO 2 weeks Orders: URINE OB DIP B/O Melissa Martino MD documented in this encounter [facility] 09-02-2024 Instructions Franc Hyatt MA - 09/02/2024 1:22 PM EDT SEQUENTIAL SCREENINGS The [facility] offers sequential screenings for women who are interested in screenings for chromosomal abnormalities and certain defects during a . The sequential screen combines ultrasound and blood tests to determine the risk of chromosomal abnormalities, including Down's Syndrome (Trisomy 21) and Trisomy 18, as well as open neural tube defects including spina bifida. Ultrasound examination is performed between 11 weeks and 13 weeks gestational age. Blood tests are drawn after the ultrasound and again later in the between 15 and 21 weeks gestational age. Please let your physician know if you are interested in this testing. It will require an appointment with our semiconductor equipment technician. This is not an ultrasound performed by a physician in our office during a routine visit. SIGNS AND SYMPTOMS OF LABOR 1. Contractions every 10 minutes or more often 2. Clear, pink, or brownish fluid (water) leaking from vagina 3. Feeling that baby is pushing down, pressure 4. Low, dull backache 5. Cramps that feel like a period 6. Cramps with or without diarrhea If you notice any of the above symptoms, contact our office at [phone] and ask to speak with a nurse. After hours, you can call doctors registry at [phone] OR call [facility] at [phone] and ask to have the doctor avionics systems repairer paged. If you consider this an emergency, dial [phone] or go to your nearest emergency department. NEED HELP? Are you dealing with a violent or abusive relationship? Are you a victim of rape or sexual assult? Call [facility] ([facility] 24 hour Crisis Hotline: 973.832.8563 or 961-090-6776. MANUAL Your Guide to a Healthy manual is now on-line. Visit [email or web address] to download your free copy documented in this encounter [facility] 08-19-2024 Note HNO ID: [id number] Author: MELISSA SANDERSON MD Service: ? Author Type: Physician Type: Progress Notes Filed: 08/19/2024 10:00 Note Text: DM-Pt doing well. Denies vaginal Bleeding, Leaking fluid, or regular Contractions. Pt reports good movement Physical Exam: Gen: female in no apparent distress Abd: soft, Gravid. Non tender to palpation. See flow sheet @ 32.3 weeks Assessment AND Plan Encounter for supervision of other normal in third trimester (HCC) Anemia complicating , third trimester (HCC) Continue PO iron 32 weeks gestation of (HCC) Kick counts and labor reviewed RTO 2 weeks Melissa Martino MD [facility] 08-19-2024 History of Presen t illness Narrative DM-Pt doing well. Denies vaginal Bleeding, Leaking fluid, or regular Contractions. Pt reports good movement Physical Exam: Gen: female in no apparent distress Abd: soft, Gravid. Non tender to palpation. See flow sheet @ 32.3 weeks Assessment & Plan Encounter for supervision of other normal in third trimester (HCC) Anemia complicating , third trimester (HCC) Continue PO iron 32 weeks gestation of (HCC) Kick counts and labor reviewed RTO 2 weeks Melissa Martino MD documented in this encounter [facility] 08-19-2024 Instructions Nenita Santamaria MA - 08/19/2024 9:34 AM EDT SEQUENTIAL SCREENINGS The [facility] offers sequential screenings for women who are interested in screenings for chromosomal abnormalities and certain defects during a . The sequential screen combines ultrasound and blood tests to determine the risk of chromosomal abnormalities, including Down's Syndrome (Trisomy 21) and Trisomy 18, as well as open neural tube defects including spina bifida. Ultrasound examination is performed between 11 weeks and 13 weeks gestational age. Blood tests are drawn after the ultrasound and again later in the between 15 and 21 weeks gestational age. Please let your physician know if you are interested in this testing. It will require an appointment with our semiconductor equipment technician. This is not an ultrasound performed by a physician in our office during a routine visit. SIGNS AND SYMPTOMS OF LABOR 1. Contractions every 10 minutes or more often 2. Clear, pink, or brownish fluid (water) leaking from vagina 3. Feeling that baby is pushing down, pressure 4. Low, dull backache 5. Cramps that feel like a period 6. Cramps with or without diarrhea If you notice any of the above symptoms, contact our office at [phone] and ask to speak with a nurse. After hours, you can call doctors registry at [phone] OR call [facility] at [phone] and ask to have the doctor avionics systems repairer paged. If you consider this an emergency, dial 91-7 or go to your nearest emergency department. NEED HELP? Are you dealing with a violent or abusive relationship? Are you a victim of rape or sexual assult? Call [facility] ([place]) 24 hour Crisis Hotline: 753.887.7822 or 942-829-7345. MANUAL Your Guide to a Healthy manual is now on-line. Visit [email or web address] to download your free copy documented in this encounter [facility] 08-06-2024 Progress note Formatting of t his note might be different from the original. RR- VB No. LOF No. CTXS No. Movement: present. Other c/o: no Medication list reviewed. SENSITIVE EXAM: Sensitive exam not performed. Physical Exam See Flow Sheet Abd: soft, nontender, gravid Ext: edema: 1+ A/P 30w4d Estimated Date of Delivery: 10/11/24 Assessment & Plan Anemia complicating , third trimester (HCC) xcont. pnv and asa 30 weeks gestation of ([facility]) Encounter for supervision of other normal in third trimester ([facility]) passed 3 hr gtt, reviewed results Sreedhar Shields M.D. [facility] 08-06-2024 Miscellaneous Notes RR- VB No. LOF No. CTXS No. Movement: present. Other c/o: no Medication list reviewed. SENSITIVE EXAM: Sensitive exam not performed. Physical Exam See Flow Sheet Abd: soft, nontender, gravid Ext: edema: 1+ A/P 30w4d Estimated Date of Delivery: 10/11/24 Assessment & Plan Anemia complicating , third trimester ([facility]) xcont. pnv and asa 30 weeks gestation of ([facility]) Encounter for supervision of other normal in third trimester ([facility]) passed 3 hr gtt, reviewed results Sreedhar Shields M.D. documented in this encounter [facility] 08-06-2024 Instructions Daniela Bajwa MA - 08/06/2024 1:42 PM EDT SEQUENTIAL SCREENINGS The [facility] offers sequential screenings for women who are interested in screenings for chromosomal abnormalities and certain defects during a . The sequential screen combines ultrasound and blood tests to determine the risk of chromosomal abnormalities, including Down's Syndrome (Trisomy 21) and Trisomy 18, as well as open neural tube defects including spina bifida. Ultrasound examination is performed between 11 weeks and 13 weeks gestational age. Blood tests are drawn after the ultrasound and again later in the between 15 and 21 weeks gestational age. Please let your physician know if you are interested in this testing. It will require an appointment with our semiconductor equipment technician. This is not an ultrasound performed by a physician in our office during a routine visit. SIGNS AND SYMPTOMS OF LABOR 1. Contractions every 10 minutes or more often 2. Clear, pink, or brownish fluid (water) leaking from vagina 3. Feeling that baby is pushing down, pressure 4. Low, dull backache 5. Cramps that feel like a period 6. Cramps with or without diarrhea If you notice any of the above symptoms, contact our office at [phone] and ask to speak with a nurse. After hours, you can call doctors registry at [phone] OR call [facility] at [phone] and ask to have the doctor avionics systems repairer paged. If you consider this an emergency, dial [phone]--1 or go to your nearest emergency department. NEED HELP? Are you dealing with a violent or abusive relationship? Are you a victim of rape or sexual assult? Call [facility] ([place]) 24 hour Crisis Hotline: 398.770.2246 or 797-601-6508. MANUAL Your Guide to a Healthy manual is now on-line. Visit [email or web address] to download your free copy documented in this encounter [facility] 08-04-2024 Telephone encounter Note Noted & agree. If symptoms worsen overnight should go to [facility] ED. Nazanin Beckwith MD [facility] Work Phone: 08-04-2024 Miscellaneous Notes Noted & agree. If symptoms worsen overnight should go to [facility] ED. Nazanin Beckwith MD 30w2d Spoke with patient. States she vomited at 5:30 AM and then again at 10AM. It may be something she ate. Abdomen is tender the touch. Pain rate of 4. Trying to push fluids. Last ate some crackers and so far keeping those down. Recommended patient try something with light or something with protein. Denies VB or LOF. Good FM. Advised to call with worsening symptoms and to continue to monitor. Please advise. Elvia Lozada RN 30w2d Left message for patient to call office. Elvia Lozada RN documented in this encounter [facility] 08-04-2024 Telephone encounter Note 30w2d Spoke with patient. States she vomited at 5:30 AM and then again at 10AM. It may be something she ate. Abdomen is tender the touch. Pain rate of 4. Trying to push fluids. Last ate some crackers and so far keeping those down. Recommended patient try something with light or something with protein. Denies VB or LOF. Good FM. Advised to call with worsening symptoms and to continue to monitor. Please advise. Elvia Lozada RN [facility] 08-04-2024 Telephone encounter Note 30w2d Left message for patient to call office. Elvia Lozada RN [facility] 07-24-2024 Telephone encounter Note 3rd risk assessment form submitted 07/24/24 Symone Abdi RN [facility] 07-24-2024 Miscellaneous Notes 3rd risk assessment form submitted 07/24/24 Symone Abdi RN documented in this encounter [facility] 07-23-2024 Note HNO ID: [id number] Author: ELVIA LOZADA RN Service: ? Author Type: Registered Nurse Type: Progress Notes Filed: 07/23/2024 09:32 Note Text: The patient is here for an injection of Rhogam. Dose: 300 mcg Amount wasted: none. Route: Intramuscular Site: right upper quadrant gluteus Silk Spreader: CSL Behring Lot #: [id number] Expiration Date: 07/31/2026 The date due for the next injection is N/A Patient tolerated injection well. Melissa Ledesma MD present in office at the time of injection. Elvia Lozada RN [facility] 07-23-2024 History of Presen t illness Narrative The patient is here for an injection of Rhogam. Dose: 300 mcg Amount wasted: none. Route: Intramuscular Site: right upper quadrant gluteus Silk Spreader: CSL Behring Lot #: [id number] Expiration Date: 07/31/2026 The date due for the next injection is N/A Patient tolerated injection well. Melissa Ledesma MD present in office at the time of injection. Elvia Lozada RN Patient identified by name and date of . Louann Clements presents today for a vaccination of Tdap. Patient denies an allergy to latex: yes Patient denies a severe (life-threatening) allergy to a previous dose of Tdap, DTP, DTaP, DT or Td vaccine. Yes Patient denies history of epilepsy or neurological problems: Yes Patient is afebrile and denies being moderately or severely ill: Yes Patient denies history of Guillain-Sanford Syndrome (a severe paralytic illness): Yes Tdap Adacel injection was given without incident. See immunizations for details of immunizations administered today. VIS sheet provided: Yes Provider Callie was present in office at time of injection. Franc Hyatt MA documented in this encounter [facility] 07-23-2024 Progress note Formatting of t his note might be different from the original. DM-Pt doing well. Denies vaginal Bleeding, Leaking fluid, or regular Contractions. Pt reports good movement Physical Exam: Gen: female in no apparent distress Abd: soft, Gravid. Non tender to palpation. See flow sheet @ 28.4 weeks Assessment & Plan Encounter for supervision of other normal in third trimester ([facility]) History of delivery by vacuum extraction, currently ([facility]) Rh negative state in antepartum period ([facility]) Orders: RhoD immune globulin 300 mcg injection (RHOPHYLAC) Need for vaccination Orders: TDAP VACCINE, AGE 7+ YR (ADACEL, BOOSTRIX) 28 weeks gestation of ([facility]) RTO 4 wks Orders: RhoD immune globulin 300 mcg injection (RHOPHYLAC) TDAP VACCINE, AGE 7+ YR (ADACEL, BOOSTRIX) Melissa Martino MD [facility] 07-23-2024 Miscellaneous Notes DM-Pt doing well. Denies vaginal Bleeding, Leaking fluid, or regular Contractions. Pt reports good movement Physical Exam: Gen: female in no apparent distress Abd: soft, Gravid. Non tender to palpation. See flow sheet @ 28.4 weeks Assessment & Plan Encounter for supervision of other normal in third trimester ([facility]) History of delivery by vacuum extraction, currently ([facility]) Rh negative state in antepartum period ([facility]) Orders: RhoD immune globulin 300 mcg injection (RHOPHYLAC) Need for vaccination Orders: TDAP VACCINE, AGE 7+ YR (ADACEL, BOOSTRIX) 28 weeks gestation of ([facility]) RTO 4 wks Orders: RhoD immune globulin 300 mcg injection (RHOPHYLAC) TDAP VACCINE, AGE 7+ YR (ADACEL, BOOSTRIX) Melissa Martino MD documented in this encounter [facility] 07-23-2024 Note HNO ID: [id number] Author: FRANC HYATT MA Service: ? Author Type: Rough And Trueing Machine Operator Type: Progress Notes Filed: 07/23/2024 09:32 Note Text: Patient identified by name and date of . Louann Clements presents today for a vaccination of Tdap. Patient denies an allergy to latex: yes Patient denies a severe (life-threatening) allergy to a previous dose of Tdap, DTP, DTaP, DT or Td vaccine. Yes Patient denies history of epilepsy or neurological problems: Yes Patient is afebrile and denies being moderately or severely ill: Yes Patient denies history of Guillain-Sanford Syndrome (a severe paralytic illness): Yes Tdap Adacel injection was given without incident. See immunizations for details of immunizations administered today. VIS sheet provided: Yes Provider Callie was present in office at time of injection. Franc Hyatt MA [facility] 07-23-2024 Instructions Franc Hyatt MA - 07/23/2024 8:05 AM EDT SEQUENTIAL SCREENINGS The [facility] offers sequential screenings for women who are interested in screenings for chromosomal abnormalities and certain defects during a . The sequential screen combines ultrasound and blood tests to determine the risk of chromosomal abnormalities, including Down's Syndrome (Trisomy 21) and Trisomy 18, as well as open neural tube defects including spina bifida. Ultrasound examination is performed between 11 weeks and 13 weeks gestational age. Blood tests are drawn after the ultrasound and again later in the between 15 and 21 weeks gestational age. Please let your physician know if you are interested in this testing. It will require an appointment with our semiconductor equipment technician. This is not an ultrasound performed by a physician in our office during a routine visit. SIGNS AND SYMPTOMS OF LABOR 1. Contractions every 10 minutes or more often 2. Clear, pink, or brownish fluid (water) leaking from vagina 3. Feeling that baby is pushing down, pressure 4. Low, dull backache 5. Cramps that feel like a period 6. Cramps with or without diarrhea If you notice any of the above symptoms, contact our office at [phone] and ask to speak with a nurse. After hours, you can call [facility] at [phone] OR call [facility] at [phone] and ask to have the doctor avionics systems repairer paged. If you consider this an emergency, dial 9-1-1 or go to your nearest emergency department. NEED HELP? Are you dealing with a violent or abusive relationship? Are you a victim of rape or sexual assult? Call [facility] ([place]) 24 hour Crisis Hotline: 957.624.5765 or 684-042-6956. MANUAL Your Guide to a Healthy manual is now on-line. Visit [email or web address] to download your free copy documented in this encounter [facility] 06-24-2024 Progress note Formatting of t his note might be different from the original. DM-Pt doing well. Denies vaginal Bleeding, Leaking fluid, or regular Contractions. Pt reports good movement. Has some right sided intermittent ligament pain- worse with sex and running. Physical Exam: Gen: female in no apparent distress Abd: soft, Gravid. Non tender to palpation. See flow sheet @ 24.3 weeks Assessment & Plan Encounter for supervision of other normal in second trimester (HCC) Refill for ASA given- lost her previous one but has been taking Orders: SYPHILIS TREPONEMAL W/REFLEX; Future ANEMIA REFLEX PANEL; Future TYPE + SCREEN ; Future Screening for diabetes mellitus Orders: GESTATIONAL GLUCOSE SCREEN, 1-HOUR, 50 GRAM, NON-FASTING; Future 24 weeks gestation of (HCC) RTO 4 wks Orders: GESTATIONAL GLUCOSE SCREEN, 1-HOUR, 50 GRAM, NON-FASTING; Future SYPHILIS TREPONEMAL W/REFLEX; Future ANEMIA REFLEX PANEL; Future TYPE + SCREEN ; Future Melissa Martino MD [facility] 06-24-2024 Miscellaneous Notes DM-Pt doing well. Denies vaginal Bleeding, Leaking fluid, or regular Contractions. Pt reports good movement. Has some right sided intermittent ligament pain- worse with sex and running. Physical Exam: Gen: female in no apparent distress Abd: soft, Gravid. Non tender to palpation. See flow sheet @ 24.3 weeks Assessment & Plan Encounter for supervision of other normal in second trimester (HCC) Refill for ASA given- lost her previous one but has been taking Orders: SYPHILIS TREPONEMAL W/REFLEX; Future ANEMIA REFLEX PANEL; Future TYPE + SCREEN ; Future Screening for diabetes mellitus Orders: GESTATIONAL GLUCOSE SCREEN, 1-HOUR, 50 GRAM, NON-FASTING; Future 24 weeks gestation of (HCC) RTO 4 wks Orders: GESTATIONAL GLUCOSE SCREEN, 1-HOUR, 50 GRAM, NON-FASTING; Future SYPHILIS TREPONEMAL W/REFLEX; Future ANEMIA REFLEX PANEL; Future TYPE + SCREEN ; Future Melissa MD Gunner documented in this encounter [facility] 06-24-2024 Instructions Nenita Santamaria MA - 06/24/2024 4:17 PM EDT SEQUENTIAL SCREENINGS The [facility] offers sequential screenings for women who are interested in screenings for chromosomal abnormalities and certain defects during a . The sequential screen combines ultrasound and blood tests to determine the risk of chromosomal abnormalities, including Down's Syndrome (Trisomy 21) and Trisomy 18, as well as open neural tube defects including spina bifida. Ultrasound examination is performed between 11 weeks and 13 weeks gestational age. Blood tests are drawn after the ultrasound and again later in the between 15 and 21 weeks gestational age. Please let your physician know if you are interested in this testing. It will require an appointment with our semiconductor equipment technician. This is not an ultrasound performed by a physician in our office during a routine visit. SIGNS AND SYMPTOMS OF LABOR 1. Contractions every 10 minutes or more often 2. Clear, pink, or brownish fluid (water) leaking from vagina 3. Feeling that baby is pushing down, pressure 4. Low, dull backache 5. Cramps that feel like a period 6. Cramps with or without diarrhea If you notice any of the above symptoms, contact our office at [phone] and ask to speak with a nurse. After hours, you can call doctors registry at [phone] OR call [facility] at [phone] and ask to have the doctor avionics systems repairer paged. If you consider this an emergency, dial 9-1-1 or go to your nearest emergency department. NEED HELP? Are you dealing with a violent or abusive relationship? Are you a victim of rape or sexual assult? Call [facility] ([place]) 24 hour Crisis Hotline: 888.190.8594 or 548-316-7525. MANUAL Your Guide to a Healthy manual is now on-line. Visit [email or web address] to download your free copy documented in this encounter [facility] 05-27-2024 Telephone encounter Note 2nd risk assessment form submitted 05/27/24 Symone Abdi RN [facility] 05-27-2024 Miscellaneous Notes 2nd risk assessment form submitted 05/27/24 Symone Abdi RN documented in this encounter [facility] 05-26-2024 Progress note Formatting of t his note might be different from the original. DM-Pt doing well. Denies vaginal Bleeding, Leaking fluid, or regular Contractions. Pt reports good movement. Had one episode of dizziness back in april- none since that time. Physical Exam: Gen: female in no apparent distress Abd: soft, Gravid. Non tender to palpation. See flow sheet @ 20.2 weeks Assessment & Plan Encounter for supervision of other normal in second trimester (HCC) History of delivery by vacuum extraction, currently (HCC) 20 weeks gestation of (HCC) RTO 4 wks Anatomy us pending today Dizziness in reviewed Melissa Martino MD [facility] 05-26-2024 Miscellaneous Notes DM-Pt doing well. Denies vaginal Bleeding, Leaking fluid, or regular Contractions. Pt reports good movement. Had one episode of dizziness back in april- none since that time. Physical Exam: Gen: female in no apparent distress Abd: soft, Gravid. Non tender to palpation. See flow sheet @ 20.2 weeks Assessment & Plan Encounter for supervision of other normal in second trimester (HCC) History of delivery by vacuum extraction, currently ([facility]) 20 weeks gestation of ([facility]) RTO 4 wks Anatomy us pending today Dizziness in reviewed Melissa Martino MD documented in this encounter [facility] 05-26-2024 Instructions Daniela Bajwa MA - 05/26/2024 3:19 PM EDT SEQUENTIAL SCREENINGS The [facility] offers sequential screenings for women who are interested in screenings for chromosomal abnormalities and certain defects during a . The sequential screen combines ultrasound and blood tests to determine the risk of chromosomal abnormalities, including Down's Syndrome (Trisomy 21) and Trisomy 18, as well as open neural tube defects including spina bifida. Ultrasound examination is performed between 11 weeks and 13 weeks gestational age. Blood tests are drawn after the ultrasound and again later in the between 15 and 21 weeks gestational age. Please let your physician know if you are interested in this testing. It will require an appointment with our semiconductor equipment technician. This is not an ultrasound performed by a physician in our office during a routine visit. SIGNS AND SYMPTOMS OF LABOR 1. Contractions every 10 minutes or more often 2. Clear, pink, or brownish fluid (water) leaking from vagina 3. Feeling that baby is pushing down, pressure 4. Low, dull backache 5. Cramps that feel like a period 6. Cramps with or without diarrhea If you notice any of the above symptoms, contact our office at [phone] and ask to speak with a nurse. After hours, you can call doctors registry at [phone] OR call [facility] at [phone] and ask to have the doctor avionics systems repairer paged. If you consider this an emergency, dial or go to your nearest emergency department. NEED HELP? Are you dealing with a violent or abusive relationship? Are you a victim of rape or sexual assult? Call [facility] ([place]) 24 hour Crisis Hotline: 231.374.8969 or 607-245-1216. MANUAL Your Guide to a Healthy manual is now on-line. Visit [email or web address] to download your free copy documented in this encounter [facility] 04-30-2024 Progress note Formatting of t his note might be different from the original. DM-Pt doing well. Denies vaginal Bleeding, Leaking fluid, or regular Contractions. Pt reports good movement Physical Exam: Gen: female in no apparent distress Abd: soft, Gravid. Non tender to palpation. See flow sheet @ 16.4 weeks Assessment & Plan Supervision of other normal ASA continue History of delivery by vacuum extraction, currently 16 weeks gestation of RTO 4 wks Anatomy us scheduled Melissa Martino MD [facility] 04-30-2024 Miscellaneous Notes DM-Pt doing well. Denies vaginal Bleeding, Leaking fluid, or regular Contractions. Pt reports good movement Physical Exam: Gen: female in no apparent distress Abd: soft, Gravid. Non tender to palpation. See flow sheet @ 16.4 weeks Assessment & Plan Supervision of other normal ASA continue History of delivery by vacuum extraction, currently 16 weeks gestation of RTO 4 wks Anatomy us scheduled Melissa Martino MD documented in this encounter [facility] 04-30-2024 Instructions Franc Hyatt MA - 04/30/2024 3:53 PM EDT SEQUENTIAL SCREENINGS The [facility] offers sequential screenings for women who are interested in screenings for chromosomal abnormalities and certain defects during a . The sequential screen combines ultrasound and blood tests to determine the risk of chromosomal abnormalities, including Down's Syndrome (Trisomy 21) and Trisomy 18, as well as open neural tube defects including spina bifida. Ultrasound examination is performed between 11 weeks and 13 weeks gestational age. Blood tests are drawn after the ultrasound and again later in the between 15 and 21 weeks gestational age. Please let your physician know if you are interested in this testing. It will require an appointment with our semiconductor equipment technician. This is not an ultrasound performed by a physician in our office during a routine visit. SIGNS AND SYMPTOMS OF LABOR 1. Contractions every 10 minutes or more often 2. Clear, pink, or brownish fluid (water) leaking from vagina 3. Feeling that baby is pushing down, pressure 4. Low, dull backache 5. Cramps that feel like a period 6. Cramps with or without diarrhea If you notice any of the above symptoms, contact our office at [phone] and ask to speak with a nurse. After hours, you can call doctors registry at [phone] OR call [facility] at [phone] and ask to have the doctor avionics systems repairer paged. If you consider this an emergency, dial 1-1-9 or go to your nearest emergency department. NEED HELP? Are you dealing with a violent or abusive relationship? Are you a victim of rape or sexual assult? Call [facility] ([place]) 24 hour Crisis Hotline: 944.476.6177 or 016-910-7756. MANUAL Your Guide to a Healthy manual is now on-line. Visit [email or web address] to download your free copy documented in this encounter [facility] 04-29-2024 Telephone encounter Note agree w/ below; discuss tomorrow. May need to walk around and wear support stockings. EVal if further workup needed at appointment. Sreedhar Shields MD [facility] 04-29-2024 Miscellaneous Notes agree w/ below; discuss tomorrow. May need to walk around and wear support stockings. EVal if further workup needed at appointment. Sreedhar Shields MD 16w3d Pt woke up around 0545. Did not eat until she was on way to work around 0630-breakfast pizza (eggs with sausage gravy on it) and didn't eat anything else until like 0845 (ate granola bar). States she felt hydrated. 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 Pt did not fall, states co-worker was nearby and lowered Pt to floor. Pt then vomited. Holden weak. Could see again. Holden hot. Afebrile. BP was 115/68. Pt saw and drank yeison rachid. Sat for 30 minutes and continued on with day at work. Has felt fine since. Denies headache, light headedness/dizziness, blurred vision at this time. Stay hydrated, get plenty of rest, eat high protein meals/snacks-especially after waking up in the morning. Advised Pt to monitor for light headedness/dizziness/severe headache to call the office or if she has any more blacking out episodes prior to her appt tomorrow at 4:05pm to go to ER to be evaluated. Pt voiced understanding. Chiquita Cartwright, KATHY documented in this encounter [facility] 04-29-2024 Telephone encounter Note 16w3d Pt woke up around 0545. Did not eat until she was on way to work around 0630-breakfast pizza (eggs with sausage gravy on it) and didn't eat anything else until like 0845 (ate granola bar). States she felt hydrated. 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 Pt did not fall, states co-worker was nearby and lowered Pt to floor. Pt then vomited. Holden weak. Could see again. Holden hot. Afebrile. BP was 115/68. Pt saw and drank yeison rachid. Sat for 30 minutes and continued on with day at work. Has felt fine since. Denies headache, light headedness/dizziness, blurred vision at this time. Stay hydrated, get plenty of rest, eat high protein meals/snacks-especially after waking up in the morning. Advised Pt to monitor for light headedness/dizziness/severe headache to call the office or if she has any more blacking out episodes prior to her appt tomorrow at 4:05pm to go to ER to be evaluated. Pt voiced understanding. Chiquita Cartwright RN [facility] 04-02-2024 Progress note Formatting of t his note might be different from the original. KJ - VB No. LOF No. CTXS No. Movement: absent. Other c/o: No. Medication list reviewed. Physical Exam See Flow Sheet Gen: no accute distress, well appearing A/P 12w4d Estimated Date of Delivery: 10/11/24 NT reviewed NIPT ordered Nazanin Beckwith MD [facility] 04-02-2024 Miscellaneous Notes KJ - VB No. LOF No. CTXS No. Movement: absent. Other c/o: No. Medication list reviewed. Physical Exam See Flow Sheet Gen: no accute distress, well appearing A/P 12w4d Estimated Date of Delivery: 10/11/24 NT reviewed NIPT ordered Nazanin Beckwith MD documented in this encounter [facility] 04-02-2024 Progress note Formatting of t his note might be different from the original. Anatomy ultrasound reviewed. No abnormalities identified. Follow up as clinically indicated. Please place copy in ob chart. Sreedhar Shields MD [facility] 04-02-2024 Miscellaneous Notes Anatomy ultrasound reviewed. No abnormalities identified. Follow up as clinically indicated. Please place copy in ob chart. Sreedhar Shields MD documented in this encounter [facility] 04-02-2024 Instructions Melanierhea ElizabethKRISTAL - 04/02/2024 2:54 PM EST SEQUENTIAL SCREENINGS The [facility] offers sequential screenings for women who are interested in screenings for chromosomal abnormalities and certain defects during a . The sequential screen combines ultrasound and blood tests to determine the risk of chromosomal abnormalities, including Down's Syndrome (Trisomy 21) and Trisomy 18, as well as open neural tube defects including spina bifida. Ultrasound examination is performed between 11 weeks and 13 weeks gestational age. Blood tests are drawn after the ultrasound and again later in the between 15 and 21 weeks gestational age. Please let your physician know if you are interested in this testing. It will require an appointment with our semiconductor equipment technician. This is not an ultrasound performed by a physician in our office during a routine visit. SIGNS AND SYMPTOMS OF LABOR 1. Contractions every 10 minutes or more often 2. Clear, pink, or brownish fluid (water) leaking from vagina 3. Feeling that baby is pushing down, pressure 4. Low, dull backache 5. Cramps that feel like a period 6. Cramps with or without diarrhea If you notice any of the above symptoms, contact our office at [phone] and ask to speak with a nurse. After hours, you can call doctors registry at [phone] OR call [facility] at [phone] and ask to have the doctor avionics systems repairer paged. If you consider this an emergency, dial 9--1 or go to your nearest emergency department. NEED HELP? Are you dealing with a violent or abusive relationship? Are you a victim of rape or sexual assult? Call [facility] ([place]) 24 hour Crisis Hotline: 421.208.7362 or 728-648-6517. MANUAL Your Guide to a Healthy manual is now on-line. Visit [email or web address] to download your free copy documented in this encounter [facility] 03-03-2024 Telephone encounter Note 1st risk assessment form submitted 03/03/2024. Elvia Gilmore RN [facility] 03-03-2024 Miscellaneous Notes 1st risk assessment form submitted 03/03/2024. Elvia Gilmore RN documented in this encounter [facility] 02-27-2024 Note HNO ID: [id number] Author: CHRISTIANE GUALLPA APRN.AIDA Service: ? Author Type: Yarn Finisher Type: Progress Notes Filed: 03/02/2024 09:54 Note Text: INITIAL OB ASSESSMENT HPI: Louann is a 28 year old White Female here to establish Obstetrical Care. Patient's last menstrual period was 01/05/2024 (exact date). from OB Dating Form. was unplanned but accepted. Cycles regular, sure LMP. Was not planning but also not using control but ok if . Pt was told in the past she has a Retroverted Uterus Complaints: Mild nausea OB History T1 L1 SAB0 IAB0 Ectopic0 Multiple0 Live Births1 Previous history: Prior : never History of 4th degree laceration: No History of shoulder dystocia: No History of Hypertensive disorders including pre-eclampsia or gestational hypertension: No History of gestational diabetes: No Patient's Risk Screening for delivery: Have you had a prior johnson between 20w and 36w6d? No How many pregnancies have you had before? 1 Did you have a previous baby with a GBS Infection? No Please select all that apply for any prior : N/A MEDICAL/PSYCHOSOCIAL HISTORY: History of hemorrhage or bleeding concerns: No Thyroid Disease: No History of chronic hypertension: No History of pre-existing diabetes: No ABO/RH(D) Date Value Ref Range Status 10/16/2018 A NEGATIVE Final BMI 28.87 kg/(m2) Last Pap: 05/01/2022 History of abnormal pap: No Prior treatment for cervical dysplasia: none. Last HPV: History of STDs: None Partner History of STDs: None Did you have a partner with Herpes? No Tobacco use: No E-Cigarette/Vaping Use: No Caffeine use: No Drug use: No Alcohol use: No Multivitamin with Folic acid: Yes Would refuse blood transfusion if medically necessary: No Social Needs: How often does this describe you? I don't have enough money to pay my bills: Never Within the past 12 months, have you worried that your food would run out before you had money to buy more? Never In the past 12 months, has lack of reliable transportation kept you from going to medical appointments or work, or from getting things needed for daily living? Never In the past 12 months, have you had any concerns about having a place to live, or about the condition or quality of your housing? Never Would you like more information on any of the following (please check all that apply)? Not interested Social History: Do you have any history of depression, anxiety, PTSD, or other mood problems? Yes Do you have a history of abuse or trauma that may impact your experience? No Are you currently employed? 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 OB Depression and Anxiety Screening- This Encounter (since 03/01/2024) None Genetic Screening: Partner present: Yes Patient verbalized knowledge of partner family health history: No Do you or your partner have any personal or family history of defects not previously discussed: No Do you have history of a complicated by anomaly, genetic condition, or demise: No Preeclampsia Risk Screening: Screening for prevention of preeclampsia: High risk factors: None Moderate risk ractors: None OB Risk Screening: Completed, no positive findings documented. 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 Schaeffer Current Outpatient Medications Medication Sig Dispense Refill PNV#24/iron aa kay/folic acid (COMPLETE ORAL) Take 3 Pieces of gum by mouth once daily. meclizine (ANTIVERT) 25 mg tab Take 25 mg by mouth as needed. (Patient not taking: Reported on 02/27/2024) ondansetron orally disintegrating (ZOFRAN ODT) 4 mg disintegrating tablet Take 4 mg by mouth every 8 hours as needed. (Patient not taking: Reported on 02/27/2024) DULoxetine (CYMBALTA) 30 mg capsule Take 30 mg by mouth once daily. (Patient not taking: Reported on 02/27/2024) No current facility-administered medications for this visit. Allergies As of Date: 03/02/2024 Allergen Noted Reaction PUMPKIN 03/08/2023 Itching Fully Assessed 03/02/2024 Does patient have penicillin allergy: No REVIEW OF SYSTEMS: GENERAL: Negative for: Fever or Chills HEENT: Negative for: Headache, Impaired Vision, Ringing in E (more content not included)... [facility] 02-27-2024 History of Presen t illness Narrative INITIAL OB ASSESSMENT HPI: Louann is a 28 year old White Female here to establish Obstetrical Care. Patient's last menstrual period was 01/05/2024 (exact date). from OB Dating Form. was unplanned but accepted. Cycles regular, sure LMP. Was not planning but also not using control but ok if . Pt was told in the past she has a Retroverted Uterus Complaints: Mild nausea OB History T1 L1 SAB0 IAB0 Ectopic0 Multiple0 Live Births1 Previous history: Prior : never History of 4th degree laceration: No History of shoulder dystocia: No History of Hypertensive disorders including pre-eclampsia or gestational hypertension: No History of gestational diabetes: No Patient's Risk Screening for delivery: Have you had a prior johnson between 20w and 36w6d? No How many pregnancies have you had before? 1 Did you have a previous baby with a GBS Infection? No Please select all that apply for any prior : N/A MEDICAL/PSYCHOSOCIAL HISTORY: History of hemorrhage or bleeding concerns: No Thyroid Disease: No History of chronic hypertension: No History of pre-existing diabetes: No ABO/RH(D) Date Value Ref Range Status 10/16/2018 A NEGATIVE Final BMI 28.87 kg/(m^2) Last Pap: 05/01/2022 History of abnormal pap: No Prior treatment for cervical dysplasia: none. Last HPV: History of STDs: None Partner History of STDs: None Did you have a partner with Herpes? No Tobacco use: No E-Cigarette/Vaping Use: No Caffeine use: No Drug use: No Alcohol use: No Multivitamin with Folic acid: Yes Would refuse blood transfusion if medically necessary: No Social Needs: How often does this describe you? I don't have enough money to pay my bills: Never Within the past 12 months, have you worried that your food would run out before you had money to buy more? Never In the past 12 months, has lack of reliable transportation kept you from going to medical appointments or work, or from getting things needed for daily living? Never In the past 12 months, have you had any concerns about having a place to live, or about the condition or quality of your housing? Never Would you like more information on any of the following (please check all that apply)? Not interested Social History: Do you have any history of depression, anxiety, PTSD, or other mood problems? Yes Do you have a history of abuse or trauma that may impact your experience? No Are you currently employed? 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 OB Depression and Anxiety Screening- This Encounter (since 03/01/2024) None Genetic Screening: Partner present: Yes Patient verbalized knowledge of partner family health history: No Do you or your partner have any personal or family history of defects not previously discussed: No Do you have history of a complicated by anomaly, genetic condition, or demise: No Preeclampsia Risk Screening: Screening for prevention of preeclampsia: High risk factors: None Moderate risk ractors: None OB Risk Screening: Completed, no positive findings documented. 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 Schaeffer Current Outpatient Medications Medication Sig Dispense Refill PNV#24/iron aa kay/folic acid (COMPLETE ORAL) Take 3 Pieces of gum by mouth once daily. meclizine (ANTIVERT) 25 mg tab Take 25 mg by mouth as needed. (Patient not taking: Reported on 02/27/2024) ondansetron orally disintegrating (ZOFRAN ODT) 4 mg disintegrating tablet Take 4 mg by mouth every 8 hours as needed. (Patient not taking: Reported on 02/27/2024) DULoxetine (CYMBALTA) 30 mg capsule Take 30 mg by mouth once daily. (Patient not taking: Reported on 02/27/2024) No current facility-administered medications for this visit. Allergies As of Date: 03/02/2024 Allergen Noted Reaction PUMPKIN 03/08/2023 Itching Fully Assessed 03/02/2024 Does patient have penicillin allergy: No REVIEW OF SYSTEMS: GENERAL: Negative for: Fever or Chills HEENT: Negative for: Headache, Impaired Vision, Ringing in Ears, Nosebleeds NECK: Negative for: Swelling, Pain, Stiffness RESPIRATORY: Negative for: Cough, Shortness of breath, Wheezing GASTROINTESTINAL: Negative for: Heartburn, Constipation, Diarrhea, Blood in stool, Vomiting MUSCULOSKELETAL: Negative for: Muscle or joint pain, stiffness, Joint swelling NEUROLOGIC/PSYCHIATRIC: Negative for: Weakness, Paralysis, Numbness, Tingling, Tremor, Anxiety, Depression, Memory loss SKIN: Negative for: Rash, Itching GENITOURINARY: Negative for: vaginal itching, vaginal discharge, hematuria or dysuria SENSITIVE EXAM: The sensitive examination was discussed with the Patient or Patient's Authorized Filler Sifter Helper. As applicable, any other physician, advance practice provider, medical student, or other health professional student that will be observing or involved in the sensitive examination for educational or training purposes was discussed with the Patient or Authorized Filler Sifter Helper. The Patient or Authorized Filler Sifter Helper has agreed to proceed with the sensitive examination. (Sensitive examination includes inspection and/or palpation of the breasts, pelvis, prostate and anorectal regions). PHYSICAL EXAM: BP 102/66 Ht 5' 3 (1.60m) Wt 163 lb (73.9kg) LMP 01/05/2024 BMI 28.88 kg/(m^2). GENERAL: pleasant in no apparent distress DERMATOLOGY: Normal, without lesions, non-icteric, and non-hirsute NECK: Supple, full range of motion, no adenopathy, and thyroid normal CHEST: Normal inspiratory effort BREAST: soft, non-tender, symmetric, no dominant mass, normal nipple-areolar complex, no lymphadenopathy, and no nipple discharge ABDOMEN: soft, non-tender, and no masses NEURO: alert and oriented x3,exam grossly non-focal PELVIS: External genitalia normal without lesions. Perineal body intact. No vaginal or cervical lesions. Cervix closed. Uterus 8 week size. No adnexal masses or tenderness. Clinical Pelvimetry: Pelvimetry clinically assessed as adequate Limited OB ultrasound exam: single intrauterine , positive cardiac activity, crown-rump length 8w5d, and normal bilateral adnexa. LMP 01/05/24, 8w1d, DENISE: 10/11/24 US 8w5d 10/07/24 DENISE: 10/11/24 by LMP ASSESSMENT: 28 year old at 8w1d wks gestational age PLAN: 1) Patient oriented to practice. Patient given new OB orientation folder. Discussed nutrition, folic acid supplementation, dietary guidelines, exercise, smoking, alcohol, caffeine, and drug use. Discussed gestational weight gain guidelines. Discussed routine OB labs including STD/HIV. Discussed hemoglobin electrophoresis. Patient: Accepts 2) Screening: Hemoglobin A1C: ordered Baby Aspirin: The patient has been counseled about the potential benefits of low dose aspirin in and our recommendation that this be offered to all patients, regardless of whether they meet the high risk criteria specified above. She Accepts Aneuploidy Screening: Discussed aneuploidy screening, nuchal translucency/first trimester early anatomy ultrasound and NIPT. The risks/benefits and limitations of NIPT/aneuploidy screening were reviewed including the potential for false negative and false positive results. The availability of genetic counseling was reviewed. Information on aneuploidy screening was provided. The patient chooses to proceed with If concerns with insurance coverage, patient to call back for sequential order. [facility] Carrier Screening: Discussed myriad carrier screening. We discussed the availability of professional-society guided carrier screening and reviewed the conditions screened and limitations of screening. The availability of genetic counseling was reviewed. Information on carrier screening was provided. The patient will check insurance 3) Patient offered option of Virtual Visits. Patient prefers in person visits. Follow up in 4 weeks or sooner prn. Christiane Guallpa APRN.CNM documented in this encounter [facility] 02-27-2024 Instructions Christiane Guallpa APRN.CNM - 02/27/2024 11:14 AM EST Please select the following link to access the [facility] Your Guide to a Healthy . [email or web address] Start Aspirin 81mg by mouth once daily after 12 weeks to prevent preeclampsia or high blood pressure. Low Dose Aspirin This sheet talks about exposure to low dose aspirin in and while . This information should not take the place of medical care and advice from your healthcare provider.\ What is low dose aspirin? Aspirin is also known as acetylsalicylic acid. It is a common prescription and [id number] medication similar to other non-steroidal inflammatory drugs (NSAIDs) like ibuprofen (Motrin ) and naproxen (Aleve ). Aspirin reduces inflammation, fever, and pain. Aspirin can prevent blood clots, which can make it useful in treating or preventing conditions like heart attacks and strokes. Low dose aspirin ranges from 60 to 150 mg daily, but the usual dose taken during to treat or prevent certain conditions is 81 mg daily.Regular strength and high strength aspirin and other NSAIDs are NOT preferred pain relievers during .Sometimes when people find out they are , they think about changing how they take their medication, or stopping their medication altogether. However, it is important to talk with your healthcare providers before making any changes to how you take this medication. Your healthcare providers can talk with you about the benefits of treating your condition and the risks of untreated illness during . I take low dose aspirin. Can it make it harder for me to get ? Low dose aspirin is not expected to make it harder to get . A study that included people who had 1 or 2 documented losses then asked to take daily low dose aspirin found that taking low dose aspirin at least 4 days a week increased the chance of a . Does taking low dose aspirin increase the chance for miscarriage? Miscarriage can occur in any . Taking low doses of aspirin is not thought to increase the chance of miscarriage. Some studies have shown that taking low dose aspirin before may help lower the chance of miscarriage in some people who have had one or more miscarriages before 20 weeks of . These findings are similar to studies that showed improved outcomes in people undergoing assisted reproductive technologies (fertility treatments) and were treated with low dose aspirin prior to implantation of the fertilized egg into the uterus. Does taking low dose aspirin increase the chance of defects? Every starts out with a 3-5% chance of having a defect. This is called the background risk. Studies on the use of low dose aspirin during have not found a higher chance of defects. Does taking low dose aspirin in increase the chance of other related problems? Taking low dose aspirin as directed by a healthcare provider is not expected to cause other problems. Studies have shown that low dose aspirin might improve outcomes in some people by increasing blood flow to and reducing inflammation or swelling in the uterus. Studies have also shown that low dose aspirin might lower the chances for preeclampsia (dangerously high blood pressure and complications) in people who are at high risk for this condition. However, people who are should only take low dose aspirin if their healthcare provider recommends it. Does taking low dose aspirin in affect future behavior or learning for the child? There are not many studies about long-term effects for children exposed to low dose aspirin during . However, studies have not found an increased chance for problems with physical or mental development in infants at 18 months of age. A study that looked at children up to 5 years of age who were born very early (before 33 weeks) and who were exposed to low dose aspirin during did not find an effect on their learning or behavior compared to children who were not exposed to low dose aspirin during . while taking low dose aspirin: The occasional use of low dose aspirin (75 mg daily to below 300 mg daily) is not expected to increase risks to a . Only small amounts of low dose aspirin enter the breast milk and adverse effects have not been reported in breastfed newborns or older infants. Healthcare providers might recommend low dose aspirin in some people during to treat certain medical conditions. However, regular strength aspirin (over 325 mg) is not preferred during . Aspirin eliminates from an s body more slowly than from an adult s body, so aspirin levels in the s body could build up over time with long-term use of aspirin. Using high dose aspirin can lower the body s ability to clot blood(could lead to easier bruising or bleeding). This is not likely to happen with low dose aspirin. Talk with your Healthcare provider about your questions. If a male takes low dose aspirin, could it affect fertility (ability to get partner ) or increase the chance of defects? There is very limited information about the effects of low dose aspirin on male reproduction. One study looked at men who attended an infertility clinic and were taking non-prescribed low dose aspirin at different doses and frequencies for at least six months. The study reported a decrease in the amount and quality of sperm, especially in those who used higher amounts of aspirin. Generally, it is not considered necessary for men to stop using low dose aspirin before trying to get their partner . However, men undergoing fertility treatment may want to talk with their healthcare providers about whether or not they need to stop taking aspirin. In general, exposures that fathers or sperm donors have are unlikely to increase the risks to a . For more information, please see the [employer] fact sheet Paternal Exposures at [email or web address] Kumar [email or web address]/fact-sh eets/wltornxo-edhvbufdp-ncnnaarf [email or web address] documented in this encounter [facility] 11-15-2023 Note HNO ID: [id number] Author: SHERRIE CHAUDHRY MD Service: ? 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 Encounter Diagnosis ICD-10-CM 1. Dyspareunia in female N94.10 Please see report under imaging tab. 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 Encounter Diagnosis ICD-10-CM 1. Dyspareunia in female N94.10 Please see report under imaging tab. Sherrie Chaudhry MD November 15, 2023 6:07 PM documented in this encounter [facility] 11-07-2023 Instructions Rubin Davila APRN.CNP - 11/07/2023 3:30 PM EDT Fibrocystic breast change is a common benign condition that can affect premenopausal women, resulting in lumpy breast tissue caused by hormonal fluctuations. This can result in pain that occurs constantly or cyclically with your period. Caffeine (pop, coffee, tea, chocolate) and alcohol use are risk factors that may contribute to fibrocystic breast changes. Ibuprofen or Tylenol can be used to help with the pain. Wear a well fitting supportive bra. Contact your provider with any concern for breast changes and always have a good self breast awareness. documented in this encounter [facility] 11-07-2023 Note HNO ID: [id number] Author: RUBIN DAVILA APRN.CNP Service: ? 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 Louann is a 28 year old who presents for an annual gynecologic exam. Reports recent pelvic pain with intercourse. Holden like her partner hit something and then had pain for ~ 5 minutes. 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 Menses: cycles every 30 days and 6 days of flow. Contraception: condoms and withdrawal HPV vaccine: Yes Last Pap: 05/01/2022 normal HPV: N/A History of abnormal pap: No Last mammogram: never Sexually active: Yes History of STDS: None Patient concerns for STD exposure: No. 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 LMP: 10/22/2023, Having periods Age at Menarche: Age at First : Age at Menopause: Sales Financial Analyst History Comments: Sexual Activity: Yes; Male Contraception: Condom PAST MEDICAL HISTORY Diagnosis Date Abdominal pain, lower 11/2018 with leukocytosis Benign paroxysmal positional vertigo pt reported Concussion 03/2012 Fracture of vertebra 12/2012 Dr Mendoza (lumbar) NEGATIVE MEDICAL HISTORY normal color vision PMH - PAST MEDICAL HISTORY OF twin - Twin B PAST SURGICAL HISTORY Procedure Laterality Date APPENDECTOMY 12/11/2018 INJECTION 05/24/2017 spine FAMILY HISTORY Problem Relation Age of Onset other (endomtriosis) Mother No Known Problems Father No Known Problems Sister No Known Problems Brother Cervical Cancer Maternal Grandmother No Known Problems Maternal Grandfather No Known Problems Paternal Grandmother No Known Problems Paternal Grandfather None Other SOCIAL HISTORY Social History Tobacco Use Smoking status: Never Smokeless tobacco: Never Vaping Use Vaping status: Never Used Substance Use Topics Alcohol use: No Drug use: No REVIEW OF SYSTEMS Abdomen: No abdominal pain, nausea, vomiting, diarrhea, or constipation. No bloating, early satiety, indigestion, or increased flatulence. Bladder: No dysuria, gross hematuria, urinary frequency, urinary urgency, or incontinence. Breast: No breast lumps, nipple d/c, overlying skin changes, redness or skin retraction. Allergies and current medication updated:Yes SENSITIVE EXAM: The sensitive examination was discussed with the Patient or Patient's Authorized Filler Sifter Helper. As applicable, any other physician, advance practice provider, medical student, or other health professional student that will be observing or involved in the sensitive examination for educational or training purposes was discussed with the Patient or Authorized Filler Sifter Helper. The Patient or Authorized Filler Sifter Helper has agreed to proceed with the sensitive examination. (Sensitive examination includes inspection and/or palpation of the breasts, pelvis, prostate and anorectal regions). EXAM: BP 98/60 Ht 5' 3.78 (1.62m) Wt 156 lb 12.8 oz (71.1kg) LMP 10/22/2023 BMI 27.10 kg/(m2). GENERAL: pleasant, female in no apparent distress HEENT: Normocephalic, atraumatic, mucus membranes moist, and no lesions NECK: Supple, full range of motion, no adenopathy, and thyroid normal DERMATOLOGY: Normal, without lesions, non-icteric, and non-hirsute BREAST: soft, non-tender, symmetric, no dominant mass, normal nipple-areolar complex, no lymphadenopathy, and no nipple discharge + fibrocystic bilaterally CHEST: Normal inspiratory effort ABDOMEN: soft, non-tender, and no masses PELVIC: external genitalia normal, normal Bartholin's glands, urethra, [place]'s glands, no vulvar lesions, no cervical lesions, good vaginal support, physiologic discharge present, normal appearing perineal body and perianal region BIMANUAL: uterus normal size, shape and consistency, no adnexal masses, and non-tender RECTOVAGINAL: deferred. NEURO: alert and oriented x3,exam grossly non-focal EXTREMITIES: normal ASSESSMENT/PLAN: 1) Health maintenance: Pap/HPV up to date 2022. Deferred until 2025. Nutrition, exercise and routine health maintenance exams reviewed. HPV vaccine: completed series 2) Contraception: condoms and withdrawal. 3) STD screening: Declined STD check. 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 Louann is a 28 year old who presents for an annual gynecologic exam. Reports recent pelvic pain with intercourse. Holden like her partner hit something and then had pain for ~ 5 minutes. 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 Menses: cycles every 30 days and 6 days of flow. Contraception: condoms and withdrawal HPV vaccine: Yes Last Pap: 05/01/2022 normal HPV: N/A History of abnormal pap: No Last mammogram: never Sexually active: Yes History of STDS: None Patient concerns for STD exposure: No. 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 LMP: 10/22/2023, Having periods Age at Menarche: Age at First : Age at Menopause: Sales Financial Analyst History Comments: Sexual Activity: Yes; Male Contraception: Condom PAST MEDICAL HISTORY Diagnosis Date Abdominal pain, lower 11/2018 with leukocytosis Benign paroxysmal positional vertigo pt reported Concussion 03/2012 Fracture of vertebra 12/2012 Dr Mendoza (lumbar) NEGATIVE MEDICAL HISTORY normal color vision PMH - PAST MEDICAL HISTORY OF twin - Twin B PAST SURGICAL HISTORY Procedure Laterality Date APPENDECTOMY 12/11/2018 INJECTION 05/24/2017 spine FAMILY HISTORY Problem Relation Age of Onset other (endomtriosis) Mother No Known Problems Father No Known Problems Sister No Known Problems Brother Cervical Cancer Maternal Grandmother No Known Problems Maternal Grandfather No Known Problems Paternal Grandmother No Known Problems Paternal Grandfather None Other SOCIAL HISTORY Social History Tobacco Use Smoking status: Never Smokeless tobacco: Never Vaping Use Vaping status: Never Used Substance Use Topics Alcohol use: No Drug use: No REVIEW OF SYSTEMS Abdomen: No abdominal pain, nausea, vomiting, diarrhea, or constipation. No bloating, early satiety, indigestion, or increased flatulence. Bladder: No dysuria, gross hematuria, urinary frequency, urinary urgency, or incontinence. Breast: No breast lumps, nipple d/c, overlying skin changes, redness or skin retraction. Allergies and current medication updated:Yes SENSITIVE EXAM: The sensitive examination was discussed with the Patient or Patient's Authorized Filler Sifter Helper. As applicable, any other physician, advance practice provider, medical student, or other health professional student that will be observing or involved in the sensitive examination for educational or training purposes was discussed with the Patient or Authorized Filler Sifter Helper. The Patient or Authorized Filler Sifter Helper has agreed to proceed with the sensitive examination. (Sensitive examination includes inspection and/or palpation of the breasts, pelvis, prostate and anorectal regions). EXAM: BP 98/60 Ht 5' 3.78 (1.62m) Wt 156 lb 12.8 oz (71.1kg) LMP 10/22/2023 BMI 27.10 kg/(m^2). GENERAL: pleasant, female in no apparent distress HEENT: Normocephalic, atraumatic, mucus membranes moist, and no lesions NECK: Supple, full range of motion, no adenopathy, and thyroid normal DERMATOLOGY: Normal, without lesions, non-icteric, and non-hirsute BREAST: soft, non-tender, symmetric, no dominant mass, normal nipple-areolar complex, no lymphadenopathy, and no nipple discharge + fibrocystic bilaterally CHEST: Normal inspiratory effort ABDOMEN: soft, non-tender, and no masses PELVIC: external genitalia normal, normal Bartholin's glands, urethra, [place]'s glands, no vulvar lesions, no cervical lesions, good vaginal support, physiologic discharge present, normal appearing perineal body and perianal region BIMANUAL: uterus normal size, shape and consistency, no adnexal masses, and non-tender RECTOVAGINAL: deferred. NEURO: alert and oriented x3,exam grossly non-focal EXTREMITIES: normal ASSESSMENT/PLAN: 1) Health maintenance: Pap/HPV up to date 2022. Deferred until 2025. Nutrition, exercise and routine health maintenance exams reviewed. HPV vaccine: completed series 2) Contraception: condoms and withdrawal. 3) STD screening: Declined STD check. 4) Follow up one year or sooner as needed Dyspareunia in female - ICD9: 625.0, ICD10: N94.10 - Suspect ovarian cyst that may have ruptured based off short duration of pain - Ultrasound ordered - PELVIC US WHI Rubin Davila APRN.SKIRT PANEL ASSEMBLER documented in this encounter [facility] 09-05-2023 History of Presen t illness Narrative Patient presents for PPD read only. Denies any problems at this time. Nan Webster LPN documented in this encounter [facility] 09-02-2023 History of Presen t illness Narrative Patient presents for PPD administration. Denies any problems at this time. Tolerated injection well. Nan Webster LPN documented in this encounter [facility] 08-20-2023 Telephone encounter Note Patient scheduled for nurse visit 09/02/23 to receive PPD administration. Please place order at this time. Nan Webster LPN [facility] 08-20-2023 Miscellaneous Notes Patient scheduled for nurse visit 09/02/23 to receive PPD administration. Please place order at this time. Nan Webster LPN documented in this encounter [facility] 06-27-2023 Telephone encounter Note My Chart message sent, closing this encounter Lesley Alva APRN.SKIRT PANEL ASSEMBLER [facility] 06-27-2023 Miscellaneous Notes My Chart message sent, closing this encounter Lesley Alva APRN.SKIRT PANEL ASSEMBLER Let Pt know: IMPRESSION: Normal sonographic appearance of the right upper quadrant. Pt was asking if they had found anything, and I said it didn't appear that they found anything abnormal in the [place]. I let her know I would notify provider and have them look at it to make sure they didn't see anything. documented in this encounter [facility] 06-27-2023 Telephone encounter Note Let Pt know: IMPRESSION: Normal sonographic appearance of the right upper quadrant. Pt was asking if they had found anything, and I said it didn't appear that they found anything abnormal in the [place]. I let her know I would notify provider and have them look at it to make sure they didn't see anything. [facility] 06-26-2023 Note HNO ID: [id number] Author: MITCHELL MCKEON, TECHNOLOGIST Service: ? Author Type: Technologist Type: Progress Notes Filed: 06/26/2023 14:03 Note Text: Radiology Service Progress Note PATIENT NAME: Louann Clements DATE OF SERVICE: June 26, 2023 TIME: 2:02 PM PATIENT IDENTITY VERIFICATION COMPLETED USING TWO (2) IDENTIFIERS: Name and Date of confirmed by patient verbally. FALL SCREENING: Has the patient had 2 falls in the last year or 1 fall with injury or currently using an Ambulatory Assistive Device (Walker, Cane, Wheelchair, Crutches, etc.)? No PATIENT GENDER DATA: Female. status: : No status: NO. PATIENT RELEVANT IMPLANT DATA REVIEWED: Yes PATIENT PRESENTS WITH AN IMPLANTABLE OR ATTACHED EMBROIDERY SPECIALIST: No RADIOLOGY DEPARTMENT: Ultrasound PERIPHERAL IV DATA: Not applicable SIGNED BY: TECHNOLOGIST Noé June 26, 2023 2:02 PM [facility] 06-26-2023 History of Presen t illness Narrative Radiology Service Progress Note PATIENT NAME: Louann Clements DATE OF SERVICE: June 26, 2023 TIME: 2:02 PM PATIENT IDENTITY VERIFICATION COMPLETED USING TWO (2) IDENTIFIERS: Name and Date of confirmed by patient verbally. FALL SCREENING: Has the patient had 2 falls in the last year or 1 fall with injury or currently using an Ambulatory Assistive Device (Walker, Cane, Wheelchair, Crutches, etc.)? No PATIENT GENDER DATA: Female. status: : No status: NO. PATIENT RELEVANT IMPLANT DATA REVIEWED: Yes PATIENT PRESENTS WITH AN IMPLANTABLE OR ATTACHED EMBROIDERY SPECIALIST: No RADIOLOGY DEPARTMENT: Ultrasound PERIPHERAL IV DATA: Not applicable SIGNED BY: TECHNOLOGIST Noé June 26, 2023 2:02 PM documented in this encounter [facility] 06-26-2023 History of Presen t illness Narrative CC Patient presents with: Abdominal Pain: Gallbladder HPI Louann Clements is a 28 year old female who presents with abdominal pain for for two weeks. Location: epigastric without radiation Described as: intermittent cramping, gnawing, stabbing Aggravating factors: eating Alleviating factors: none, resolves on its own Associated symptoms: heartburn, reflux, nausea, vomiting, constipation, decreased appetite Denies: diarrhea, hematochezia, melena, problem swallowing GI history: mildly inflamed pancreas in 2022. Surgeries: appendectomy. Endoscopy: none Family history: cholecystitis- sister Review of Systems Constitutional: Negative for chills, diaphoresis, fatigue, fever and unexpected weight change. Respiratory: Negative for cough, shortness of breath and wheezing. Cardiovascular: Negative for chest pain, palpitations and leg swelling. Neurological: Negative for dizziness, syncope, weakness and light-headedness. PAST MEDICAL HISTORY Diagnosis Date Abdominal pain, lower 11/2018 with leukocytosis Concussion 03/26 Fracture of vertebra 12/2012 Dr Mendoza (lumbar) NEGATIVE MEDICAL HISTORY normal color vision PMH - PAST MEDICAL HISTORY OF twin - Twin B PAST SURGICAL HISTORY Procedure Laterality Date APPENDECTOMY 12/11/2018 INJECTION 05/24/2017 spine ALLERGIES Pumpkin MEDICATIONS DULoxetine (CYMBALTA) 30 mg capsule Take 30 mg by mouth once daily. FAMILY HISTORY Problem Relation Age of Onset [...] Topics Alcohol use: No Drug use: No BP 108/76 Pulse 83 Temp 36.9 C (98.5 F) (Temporal) Resp 12 Wt 68.5 kg (151 lb) LMP 08/23/2022 SpO2 97% BMI 25.92 kg/m Physical Exam Vitals reviewed. Constitutional: Appearance: Normal appearance. Cardiovascular: Rate and Rhythm: Normal rate and regular rhythm. Heart sounds: Normal heart sounds. No murmur heard. Pulmonary: Effort: Pulmonary effort is normal. Breath sounds: Normal breath sounds. No wheezing, rhonchi or rales. Abdominal: General: Abdomen is flat. Bowel sounds are normal. Palpations: Abdomen is soft. There is no hepatomegaly, splenomegaly or mass. Tenderness: There is abdominal tenderness (moderate epigastric tenderness). There is no guarding or rebound. Negative signs include Chapa's sign. Skin: General: Skin is warm and dry. Neurological: Mental Status: She is alert. Psychiatric: Mood and Affect: Mood normal. DATA REVIEWED: Most recent labs and RUQ abdominal ultrasound ASSESSMENT/PLAN: 1. Epigastric pain - ICD9: 789.06, ICD10: R10.13 (primary diagnosis) Differential Diagnosis includes GERD, PUD, Gall bladder colic/cholelithiasis, and pancreatitis Work-up with: - US ABD RIGHT UPPER QUADRANT - COMPLETE BLOOD COUNT - COMPREHENSIVE METABOLIC PANEL - LIPASE Follow-up and recommendations pending results 2. Nausea and vomiting, unspecified vomiting type - ICD9: 787.01, ICD10: R11.2 As above - US ABD RIGHT UPPER QUADRANT - COMPLETE BLOOD COUNT - COMPREHENSIVE METABOLIC PANEL - LIPASE Prescription instructions reviewed with patient as applicable. Potential red flag symptoms discussed with the patient. Reviewed appropriate action plan to take if red flag symptoms occur. Patient agreeable to treatment plan. Lesley Alva APRN.SKIRT PANEL ASSEMBLER documented in this encounter [facility] 06-06-2023 History of Presen t illness Narrative Chief Complaint Patient presents with: spikes in heart rate when just sitting down: Sitting in class up t0 135 then out in waiting room today 115 HPI Louann Clements is a 27 year old female who presents here today for Above Complaints. Louann is an established patient of Dr. Jason MD. Concerns today... Increased heart beat --- Pt reports episodes lasting about 5 minutes at a time of increased heart rate and palpitations over the last few weeks. Symptoms occur without exertion when just sitting down. Heart rate highest of 135, per pt recordings. Pt personally believes this is related to her mild anxiety but her grandmother wanted to her to get checked out to make sure it was not cardiac related. No associated dizziness, SOB, or chest pain. Reports discomfort of 1-2/10 with the palpitations but no pain. Was recently prescribed Cymbalta [address] Urbina for her chronic back pain issues. Just picked up from pharmacy yesterday and has not starting this regimen yet. Pt also reports intermittent episodes of R wrist/thumb pain after using R hand frequently. Symptoms will resolve with rest. No other concerns or complaints. Past medical history, appointments, medications, allergies reviewed. Previous Medical History PAST MEDICAL HISTORY Diagnosis Date Abdominal pain, lower 11/2018 with leukocytosis Concussion 03/26 Fracture of vertebra 12/2012 Dr Mendoza (lumbar) NEGATIVE MEDICAL HISTORY normal color vision PMH - PAST MEDICAL HISTORY OF twin - Twin B Previous Surgical History PAST SURGICAL HISTORY Procedure Laterality Date APPENDECTOMY 12/11/2018 INJECTION 05/24/2017 spine Family History FAMILY HISTORY Problem Relation Age of Onset other (endomtriosis) Mother No Known Problems Father No Known Problems Sister No Known Problems Brother No Known Problems Maternal Grandmother No Known Problems Maternal Grandfather No Known Problems Paternal Grandmother No Known Problems Paternal Grandfather None Other Patient Allergies ALLERGIES Allergen Reactions Pumpkin Itching Swells itchy , hives Current Medications No current outpatient medications on file prior to visit. No current facility-administered medications on file prior to visit. Social History Social History Tobacco Use Smoking status: Never Smokeless tobacco: Never Vaping Use Vaping Use: Never used Substance Use Topics Alcohol use: No Drug use: No REVIEW OF SYSTEMS: as above Reviewed relevant PMHx, PSHx, Social Hx, current medications and allergies. Review of Symptoms REVIEW OF SYSTEMS See HPI. EXAM: BP 94/60 (BP Site: Left Arm, BP Position: Sitting, BP Cuff Size: Regular Adult) Pulse 115 Resp 14 Wt 69 kg (152 lb 3.2 oz) LMP 08/23/2022 BMI 26.13 kg/m General Appearance: Well appearing, alert, in no acute distress, well-hydrated, well nourished.. Skin: Skin color, texture, turgor normal, no suspicious rashes or lesions. Head: Normocephalic, no masses, lesions, tenderness or abnormalities. Lungs: Lungs clear to auscultation. No wheezing, rhonchi, rales.. Heart: RRR without murmur, gallop, or rubs. No ectopy. Extremities: No deformities, edema, skin discoloration, clubbing or cyanosis. Good capillary refill. . Musculoskeletal: No joint swelling, deformity, or tenderness. Peripheral Pulses: Normal. Health Maintenance List Hepatitis C Screening Never done Behavioral Health Screening Never done Covid-19 Vaccine(3 - 2022- season) due on 03/08/2024 Pap Testing due on 04/25/2025 DTaP,Tdap,Td Vaccine(8 - Td or Tdap) due on 01/13/2029 Hepatitis B Vaccine Completed HPV Vaccine Completed Influenza Vaccine Completed HIV Screening Completed ASSESSMENT/PLAN: 1. Rapid heartbeat - ICD9: 785.0, ICD10: R00.0 (primary diagnosis) EKG NSR rate of 71. Start cymbalta regimen as prescribed by Dr. Urbina. This regimen will help with anxiety as well. If no improvement in symptoms after 4 weeks on this regimen, we discussed [employer] configuration management advisor x 2-4 weeks if needed. Pt agreeable to plan. - DULOXETINE 30 MG CAPSULE,DELAYED RELEASE - ECG COMPLETE 2. Palpitations - ICD9: 785.1, ICD10: R00.2 See above. - DULOXETINE 30 MG CAPSULE,DELAYED RELEASE - ECG COMPLETE 3. VERENICE (generalized anxiety disorder) - ICD9: 300.02, ICD10: F41.1 See above, Start cymbalta as prescribed. 4. Pain of right thumb - ICD9: 729.5, ICD10: M79.644 Likely carpal tunnel. Sister with dx of carpal tunnel as well. OTC motrin or tylenol as needed. Wrist/ thumb spica brace at bedtime. Continue to monitor and let us know if symptoms are not improving or worsening. Pt declined EMG testing at this time. RTO as needed if symptoms do not resolve. Prescription instructions reviewed with patient as applicable. Potential red flag symptoms discussed with the patient. Reviewed appropriate action plan to take if red flag symptoms occur. Patient agreeable to treatment plan. Sylvia Candelario APRN.CNP [address] [place] [address] documented in this encounter [facility] 08-24-2022 History of Presen t illness Narrative Louann Clements is a 27 year old female who [...] L1 SAB0 IAB0 Ectopic0 Multiple0 Live Births1 Sales Financial Analyst History LMP: 08/23/2022, Drug Induced Amenorrhea Age at Menarche: Age at First : Age at Menopause: Sales Financial Analyst History Comments: Sexual Activity: Yes; Male Contraception: [...] Medical Decision Making Level: 4 - Moderate Melissa Martino MD documented in this encounter [facility] 08-08-2022 History of Presen t illness Narrative Radiology Service Progress Note PATIENT NAME: Louann Clements DATE OF SERVICE: August 08, 2022 TIME: [...] 2022 8:06 AM documented in this encounter [facility] 08-08-2022 Miscellaneous Notes RUQ US within normal limits. Pelvic ultrasound within normal limits except for small amount of free fluid documented in this encounter [facility] 08-06-2022 Lili Mistry APRN.CNS - 08/06/2022 8:03 AM EDT Review of hospital records showed possible mild pancreatitis. Some causes of pancreatitis include medications, alcohol, gallstones. Let us know if any upper abdominal pain, nausea or vomiting. Consider completing amylase and lipase levels today. 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 documented in this encounter [facility] 08-06-2022 History of Presen t illness Narrative SUBJECTIVE: COVID-19 VACCINE(3 - Booster for Pfizer series) due on 05/22/2022 HPI Louann Clements is a 27 year old female. 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 On arrival indicates that she was seen at [facility] last week for pelvic pain. Review of [...] Negative test. She was advised to use [id number] anti-inflammatories as needed and return for any worsening or concerning symptoms. No pelvic masses noted. Review of Systems Constitutional: Negative. Respiratory: Negative. Cardiovascular: Negative. Gastrointestinal: Negative. Objective BP 108/62 Pulse 84 Resp 16 Ht 162.6 cm (5' 4) Wt 70.8 kg (156 lb) LMP 02/13/2021 [...] No Known Allergies Medication Norethindrone Acet-Ethinyl Est (JUNE,) 1.5-30 mg-mcg Take [...] Abs Lymph 1.00 - 4.00 k/uL 2.09 Wright% % 7.0 Abs Wright <0.87 k/uL 0.42 Eosin% % 1.5 Abs [...] be late for work. We will send [employer] message to follow-up and have schedulers call for any additional follow-up she would like to complete. Jennifer Mistry APRN.ORACLE DATABASE ARCHITECT Medical Decision Making: Problems: Low: Acute, uncomplicated illness or injury Data: Unique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 [facility] Diagnosis Encounter for gynecological examination (general) (routine) without abnormal findings- Primary Dyspareunia in female [facility]* Diagnosis Dyspareunia in female [facility]* Diagnosis with uncertain dates in first trimester- Primary Supervision of other normal History of delivery by vacuum extraction, currently with other poor obstetric history Rh negative state in antepartum period Rhesus isoimmunization affecting management of mother, 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 Acquired spondylolisthesis documented in this encounter [facility] note* Diagnosis Encounter for screening for malformation using ultrasound- Primary 12 weeks gestation of state, incidental documented in this encounter [facility] note* Diagnosis Supervision of other normal - Primary 12 weeks gestation of state, incidental documented in this encounter [facility] note* Diagnosis Supervision of other normal - Primary History of delivery by vacuum extraction, currently with other poor obstetric history 16 weeks gestation of state, incidental * Assessment & Plan Note - Melissa Sanderson MD - 04/30/2024 4:04 PM EDT Associated Problem(s): Supervision of other normal ASA continue * Assessment & Plan Note - Melissa Sanderson MD - 04/30/2024 4:04 PM EDT Associated Problem(s): History of delivery by vacuum extraction, currently documented in this encounter [facility] note* Diagnosis Supervision of other normal - Primary History of delivery by vacuum extraction, currently (HCC) with other poor obstetric history 16 weeks gestation of (HCC) state, incidental Encounter for supervision of other normal in second trimester (HCC)- Primary History of delivery by vacuum extraction, currently (HCC) with other poor obstetric history 20 weeks gestation of (HCC) state, incidental * Assessment & Plan Note - Melissa Sanderson MD - 05/26/2024 4:16 PM EDT Associated Problem(s): History of delivery by vacuum extraction, currently (HCC) documented in this encounter [facility] note* Diagnosis Supervision of other normal - Primary History of delivery by vacuum extraction, currently ([facility]) with other poor obstetric history 16 weeks gestation of ([facility]) state, incidental Encounter for anatomic survey ([facility])- Primary Encounter for anatomic survey 20 weeks gestation of ([facility]) state, incidental Encounter for supervision of other normal in second trimester ([facility])- Primary History of delivery by vacuum extraction, currently ([facility]) with other poor obstetric history 20 weeks gestation of ([facility]) state, incidental documented in this encounter [facility] note* Diagnosis Supervision of other normal - Primary History of delivery by vacuum extraction, currently ([facility]) with other poor obstetric history 16 weeks gestation of ([facility]) state, incidental Encounter for supervision of other normal in second trimester ([facility])- Primary History of delivery by vacuum extraction, currently ([facility]) with other poor obstetric history 20 weeks gestation of ([facility]) state, incidental Encounter for supervision of other normal in second trimester ([facility])- Primary Screening for diabetes mellitus 24 weeks gestation of ([facility]) state, incidental documented in this encounter [facility] note* Diagnosis Supervision of other normal - Primary History of delivery by vacuum extraction, currently ([facility]) with other poor obstetric history 16 weeks gestation of ([facility]) state, incidental Encounter for supervision of other normal in second trimester ([facility])- Primary History of delivery by vacuum extraction, currently ([facility]) with other poor obstetric history 20 weeks gestation of ([facility]) state, incidental Encounter for supervision of other normal in third trimester ([facility])- Primary History of delivery by vacuum extraction, currently ([facility]) with other poor obstetric history Rh negative state in antepartum period ([facility]) Rhesus isoimmunization affecting management of mother, antepartum condition Need for vaccination Need for prophylactic vaccination and inoculation against unspecified single disease 28 weeks gestation of ([facility]) state, incidental * Assessment & Plan Note - Melissa Sanderson MD - 07/23/2024 8:37 AM EDT Associated Problem(s): History of delivery by vacuum extraction, currently ([facility]) * Assessment & Plan Note - Melissa Sanderson MD - 07/23/2024 8:37 AM EDT Associated Problem(s): Rh negative state in antepartum period (HCC) Orders: RhoD immune globulin 300 mcg injection (RHOPHYLAC) documented in this encounter [facility] note* Diagnosis Supervision of other normal - Primary History of delivery by vacuum extraction, currently ([facility]) with other poor obstetric history 16 weeks gestation of ([facility]) state, incidental Encounter for supervision of other normal in second trimester ([facility])- Primary History of delivery by vacuum extraction, currently ([facility]) with other poor obstetric history 20 weeks gestation of ([facility]) state, incidental Encounter for supervision of other normal in third trimester ([facility])- Primary History of delivery by vacuum extraction, currently ([facility]) with other poor obstetric history Rh negative state in antepartum period ([facility]) Rhesus isoimmunization affecting management of mother, antepartum condition Need for vaccination Need for prophylactic vaccination and inoculation against unspecified single disease 28 weeks gestation of ([facility]) state, incidental Encounter for supervision of other normal in third trimester ([facility])- Primary Anemia complicating , third trimester ([facility]) 30 weeks gestation of ([facility]) state, incidental documented in this encounter [facility] note* Diagnosis Supervision of other normal - Primary History of delivery by vacuum extraction, currently ([facility]) with other poor obstetric history 16 weeks gestation of ([facility]) state, incidental Encounter for supervision of other normal in second trimester ([facility])- Primary History of delivery by vacuum extraction, currently ([facility]) with other poor obstetric history 20 weeks gestation of ([facility]) state, incidental Encounter for supervision of other normal in third trimester ([facility])- Primary History of delivery by vacuum extraction, currently ([facility]) with other poor obstetric history Rh negative state in antepartum period ([facility]) Rhesus isoimmunization affecting management of mother, antepartum condition Need for vaccination Need for prophylactic vaccination and inoculation against unspecified single disease 28 weeks gestation of ([facility]) state, incidental Encounter for supervision of other normal in third trimester ([facility])- Primary Anemia complicating , third trimester (HCC) 32 weeks gestation of ([facility]) state, incidental documented in this encounter [facility] note* Diagnosis Supervision of other normal - Primary History of delivery by vacuum extraction, currently ([facility]) with other poor obstetric history 16 weeks gestation of ([facility]) state, incidental Encounter for supervision of other normal in second trimester ([facility])- Primary History of delivery by vacuum extraction, currently ([facility]) with other poor obstetric history 20 weeks gestation of ([facility]) state, incidental Encounter for supervision of other normal in third trimester ([facility])- Primary History of delivery by vacuum extraction, currently ([facility]) with other poor obstetric history Rh negative state in antepartum period ([facility]) Rhesus isoimmunization affecting management of mother, antepartum condition Need for vaccination Need for prophylactic vaccination and inoculation against unspecified single disease 28 weeks gestation of ([facility]) state, incidental Encounter for supervision of other normal in third trimester ([facility])- Primary Anemia complicating , third trimester ([facility]) History of delivery by vacuum extraction, currently ([facility]) with other poor obstetric history 34 weeks gestation of ([facility]) state, incidental * Assessment & Plan Note - Melissa Sanderson MD - 09/02/2024 1:37 PM EDT Associated Problem(s): History of delivery by vacuum extraction, currently ([facility]) Orders: URINE OB DIP B/O documented in this encounter [facility] note* Diagnosis Supervision of other normal - Primary History of delivery by vacuum extraction, currently ([facility]) with other poor obstetric history 16 weeks gestation of ([facility]) state, incidental Encounter for supervision of other normal in second trimester ([facility])- Primary History of delivery by vacuum extraction, currently ([facility]) with other poor obstetric history 20 weeks gestation of ([facility]) state, incidental Encounter for supervision of other normal in third trimester ([facility])- Primary History of delivery by vacuum extraction, currently ([facility]) with other poor obstetric history Rh negative state in antepartum period ([facility]) Rhesus isoimmunization affecting management of mother, antepartum condition Need for vaccination Need for prophylactic vaccination and inoculation against unspecified single disease 28 weeks gestation of ([facility]) state, incidental Abnormal glucose in , antepartum ([facility])- Primary Abnormal maternal glucose tolerance, antepartum Encounter for supervision of other normal in third trimester ([facility])- Primary Anemia complicating , third trimester ([facility]) History of delivery by vacuum extraction, currently ([facility]) with other poor obstetric history 34 weeks gestation of ([facility]) state, incidental Encounter for supervision of other normal in third trimester ([facility])- Primary Anemia complicating , third trimester ([facility]) History of delivery by vacuum extraction, currently ([facility]) with other poor obstetric history 36 weeks gestation of ([facility]) state, incidental [facility] Diagnosis Supervision of other normal - Primary History of delivery by vacuum extraction, currently ([facility]) with other poor obstetric history 16 weeks gestation of ([facility]) state, incidental Encounter for supervision of other normal in second trimester ([facility])- Primary History of delivery by vacuum extraction, currently ([facility]) with other poor obstetric history 20 weeks gestation of ([facility]) state, incidental Encounter for supervision of other normal in third trimester ([facility])- Primary History of delivery by vacuum extraction, currently ([facility]) with other poor obstetric history Rh negative state in antepartum period ([facility]) Rhesus isoimmunization affecting management of mother, antepartum condition Need for vaccination Need for prophylactic vaccination and inoculation against unspecified single disease 28 weeks gestation of ([facility]) state, incidental Encounter for supervision of other normal in third trimester ([facility])- Primary Anemia complicating , third trimester ([facility]) History of delivery by vacuum extraction, currently ([facility]) with other poor obstetric history 34 weeks gestation of ([facility]) state, incidental Encounter for supervision of other normal in third trimester ([facility])- Primary Anemia complicating , third trimester ([facility]) History of delivery by vacuum extraction, currently ([facility]) with other poor obstetric history 36 weeks gestation of ([facility]) state, incidental Encounter for supervision of other normal in third trimester ([facility])- Primary Anemia complicating , third trimester (HCC) History of delivery by vacuum extraction, currently (HCC) with other poor obstetric history 37 weeks gestation of ([facility]) state, incidental * Assessment & Plan Note - Melissa Sanderson MD - 09/23/2024 8:39 AM EDT Associated Problem(s): History of delivery by vacuum extraction, currently (HCC) Orders: URINE OB DIP B/O [facility] Supervision of other normal - Primary History of delivery by vacuum extraction, currently ([facility]) with other poor obstetric history 16 weeks gestation of ([facility]) state, incidental Encounter for supervision of other normal in second trimester ([facility])- Primary History of delivery by vacuum extraction, currently ([facility]) with other poor obstetric history 20 weeks gestation of ([facility]) state, incidental Encounter for supervision of other normal in third trimester ([facility])- Primary History of delivery by vacuum extraction, currently ([facility]) with other poor obstetric history Rh negative state in antepartum period ([facility]) Rhesus isoimmunization affecting management of mother, antepartum condition Need for vaccination Need for prophylactic vaccination and inoculation against unspecified single disease 28 weeks gestation of ([facility]) state, incidental Encounter for supervision of other normal in third trimester ([facility])- Primary Anemia complicating , third trimester ([facility]) History of delivery by vacuum extraction, currently ([facility]) with other poor obstetric history 34 weeks gestation of ([facility]) state, incidental Encounter for supervision of other normal in third trimester ([facility])- Primary Anemia complicating , third trimester ([facility]) History of delivery by vacuum extraction, currently ([facility]) with other poor obstetric history 36 weeks gestation of ([facility]) state, incidental Encounter for supervision of other normal in third trimester ([facility])- Primary Anemia complicating , third trimester ([facility]) History of delivery by vacuum extraction, currently ([facility]) with other poor obstetric history 37 weeks gestation of ([facility]) state, incidental Encounter for supervision of other normal in third trimester ([facility])- Primary Anemia complicating , third trimester (HCC) History of delivery by vacuum extraction, currently ([facility]) with other poor obstetric history Uterine size-date discrepancy, third trimester ([facility]) 38 weeks gestation of ([facility]) state, incidental * Assessment & Plan Note - Melissa Sanderson MD - 09/29/2024 2:24 PM EDT Associated Problem(s): History of delivery by vacuum extraction, currently ([facility]) Orders: URINE OB DIP B/O [facility] Supervision of other normal - Primary History of delivery by vacuum extraction, currently ([facility]) with other poor obstetric history 16 weeks gestation of ([facility]) state, incidental Encounter for supervision of other normal in second trimester ([facility])- Primary History of delivery by vacuum extraction, currently ([facility]) with other poor obstetric history 20 weeks gestation of ([facility]) state, incidental Encounter for supervision of other normal in third trimester ([facility])- Primary History of delivery by vacuum extraction, currently ([facility]) with other poor obstetric history Rh negative state in antepartum period ([facility]) Rhesus isoimmunization affecting management of mother, antepartum condition Need for vaccination Need for prophylactic vaccination and inoculation against unspecified single disease 28 weeks gestation of ([facility]) state, incidental Elevated glucose tolerance test- Primary Impaired glucose tolerance test Encounter for supervision of other normal in third trimester ([facility])- Primary Anemia complicating , third trimester ([facility]) History of delivery by vacuum extraction, currently ([facility]) with other poor obstetric history 34 weeks gestation of ([facility]) state, incidental Encounter for supervision of other normal in third trimester ([facility])- Primary Anemia complicating , third trimester ([facility]) History of delivery by vacuum extraction, currently ([facility]) with other poor obstetric history 36 weeks gestation of ([facility]) state, incidental Encounter for supervision of other normal in third trimester ([facility])- Primary Anemia complicating , third trimester ([facility]) History of delivery by vacuum extraction, currently ([facility]) with other poor obstetric history 37 weeks gestation of ([facility]) state, incidental Encounter for supervision of other normal in third trimester ([facility])- Primary Anemia complicating , third trimester ([facility]) History of delivery by vacuum extraction, currently ([facility]) with other poor obstetric history Uterine size-date discrepancy, third trimester ([facility]) 38 weeks gestation of ([facility]) state, incidental documented in this encounter [facility] for referral (narrative)* Diagnostic Procedure Only (Urgent) - Closed Specialty Diagnoses / Procedures Referred By Contac t Referred To Contact XR IMAGING Diagnoses Right wrist pain Procedures XR WRIST GENERAL 3V PA/LAT/OBL RIGHT RADEX WRIST COMPLETE MINIMUM 3 VIEWS Christiane Leung APRN.SKIRT PANEL ASSEMBLER [address] [place] [address] Xr Imaging Referral ID Status Reason Start Date Expiration Date V isits Requested Visits Authorized [id number] Closed Auto-Generate d Referral 12/21/2021 01/20/2023 1 1 [facility] for referral (narrative)* Diagnostic Procedure Only (Routine) - Pending Review Specialty Diagnoses / Procedures Referred By Contac t Referred To Contact US IMAGING Diagnoses Acute pancreatitis, unspecified complication status, unspecified pancreatitis type Procedures US ABD RIGHT UPPER QUADRANT US ABDOMINAL REAL TIME W/IMAGE LIMITED Jennifer Mistry APRN.ORACLE DATABASE ARCHITECT [address] [place] [address] Us Imaging Referral ID Status Reason Start Date Expiration Date Visits Requested Visits Authorized [id number] Pending Review Auto-Generat ed Referral 08/06/2022 09/05/2023 1 1 * Diagnostic Procedure Only (Routine) - Pending Review Specialty Diagnoses / Procedures Referred By Contac t Referred To Contact US IMAGING Diagnoses Pelvic pain in female Procedures US FEMALE PELVIS TRANSVAG US TRANSVAGINAL Jennifer Mistry APRN.ORACLE DATABASE ARCHITECT [address] [place] [address] Us Imaging Referral ID Status Reason Start Date Expiration Date Visits Requested Visits Authorized [id number] Pending Review Auto-Generat ed Referral 08/06/2022 09/05/2023 1 1 [facility] for referral (narrative)* Diagnostic Procedure Only (Routine) - Closed Specialty Diagnoses / Procedures Referred By Contac t Referred To Contact US IMAGING Diagnoses Acute pancreatitis, unspecified complication status, unspecified pancreatitis type Procedures US ABD RIGHT UPPER QUADRANT US ABDOMINAL REAL TIME W/IMAGE LIMITED Jennifer Mistry, VP PATIENT.ORACLE DATABASE ARCHITECT [address] [place] [address] [place] [address] Referral ID Status Reason Start Date Expiration Date V isits Requested Visits Authorized [id number] Closed Auto-Generate d Referral 08/06/2022 09/05/2023 1 1 [facility] for referral (narrative)* Outpatient Procedure (Routine) - Pending Review Specialty Diagnoses / Procedures Referred By Contac t Referred To [facility] Diagnoses Rapid heartbeat Palpitations Procedures ECG COMPLETE ECG ROUTINE ECG W/LEAST 12 LDS W/I&R Sylvia Curran APRN.SKIRT PANEL ASSEMBLER [address] [place] [address] [facility] [address] [place] [address] Referral ID Status Reason Start Date Expiration Date Visits Requested Visits Authorized [id number] Pending Review Auto-Generat ed Referral 06/06/2023 06/05/2024 1 1 [facility] for referral (narrative)* Diagnostic Procedure Only (Urgent) - Closed Specialty Diagnoses / Procedures Referred By Contac t Referred To Contact US IMAGING Diagnoses Epigastric pain Nausea and vomiting, unspecified vomiting type Procedures US ABD RIGHT UPPER QUADRANT US ABDOMINAL REAL TIME W/IMAGE LIMITED Lesley Alva VP PATIENT.SKIRT PANEL ASSEMBLER [address] [place] [address] [place] [address] Referral ID Status Reason Start Date Expiration Date V isits Requested Visits Authorized [id number] Closed Auto-Generate d Referral 06/26/2023 07/25/2024 1 1 [facility] for referral (narrative)* Diagnostic Procedure Only (Urgent) - Closed Specialty Diagnoses / Procedures Referred By Contac t Referred To Contact US IMAGING Diagnoses Epigastric pain Nausea and vomiting, unspecified vomiting type Procedures US ABD RIGHT UPPER QUADRANT US ABDOMINAL REAL TIME W/IMAGE LIMITED Lesley Alva, VP PATIENT.SKIRT PANEL ASSEMBLER [address] [place] [address] [place] [address] Referral ID Status Reason Start Date Expiration Date V isits Requested Visits Authorized [id number] Closed Auto-Generate d Referral 06/26/2023 07/25/2024 1 1 [facility] for referral (narrative)* Diagnostic Procedure Only (Urgent) - Closed Specialty Diagnoses / Procedures Referred By Contac t Referred To Contact XR IMAGING Diagnoses Right wrist pain Procedures XR WRIST GENERAL 3V PA/LAT/OBL RIGHT RADEX WRIST COMPLETE MINIMUM 3 VIEWS Christiane Leung VP PATIENT.SKIRT PANEL ASSEMBLER [address] [place] [address] [place] [address] Referral ID Status Reason Start Date Expiration Date V isits Requested Visits Authorized [id number] Closed Auto-Generate d Referral 12/21/2021 01/20/2023 1 1 [facility] for referral (narrative)* Diagnostic Procedure Only (Routine) - Authorized Specialty Diagnoses / Procedures Referred By Contac t Referred To Contact [facility] Diagnoses Dyspareunia in female Procedures PELVIC US I US PELVIC NONOBSTETRIC REAL-TIME IMAGE COMPLETE Rubin Davila, VP PATIENT.SKIRT PANEL ASSEMBLER [address] [place] [address] [address] Referral ID Status Reason Start Date Expiration Date Visits Requested Visits Authorized [id number] Authorized Auto-Generat ed Referral 11/07/2023 11/06/2024 1 1 [facility] for referral (narrative)* Diagnostic Procedure Only (Routine) - Authorized Specialty Diagnoses / Procedures Referred By Contac t Referred To Contact [facility] Diagnoses with uncertain dates in first trimester Procedures OBSTETRIC ULTRASOUND WHI US PREG UTERUS AFTER 1ST TRIMEST GESTATION Christiane Guallpa APRN.CNM [address] [place] [address] [address] Referral ID Status Reason Start Date Expiration Date Visits Requested Visits Authorized [id number] Authorized Auto-Generat ed Referral 03/02/2024 03/02/2025 1 1 * Diagnostic Procedure Only (Routine) - Authorized Specialty Diagnoses / Procedures Referred By Contac t Referred To Contact [facility] Diagnoses with uncertain dates in first trimester Procedures OBSTETRIC ULTRASOUND WHI US PREG UTERUS AFTER 1ST TRIMEST GESTATION Christiane Guallpa APRN.CNM [address] [place] [address] [address] Referral ID Status Reason Start Date Expiration Date Visits Requested Visits Authorized [id number] Authorized Auto-Generat ed Referral 03/02/2024 03/02/2025 1 1 [facility] for visit Narrative* Diagnostic Procedure Only (Routine) - Closed Specialty Diagnoses / Procedures Referred By Contac t Referred To Contact US IMAGING Diagnoses Acute pancreatitis, unspecified complication status, unspecified pancreatitis type Procedures US ABD RIGHT UPPER QUADRANT US ABDOMINAL REAL TIME W/IMAGE LIMITED Jennifer Mistry APRN.ORACLE DATABASE ARCHITECT [address] [place] [address] [place] [address] Referral ID Status Reason Start Date Expiration Date V isits Requested Visits Authorized [id number] Closed Auto-Generate d Referral 08/06/2022 09/05/2023 1 1 [facility] for visit Narrative* Diagnostic Procedure Only (Urgent) - Closed Specialty Diagnoses / Procedures Referred By Contac t Referred To Contact US IMAGING Diagnoses Epigastric pain Nausea and vomiting, unspecified vomiting type Procedures US ABD RIGHT UPPER QUADRANT US ABDOMINAL REAL TIME W/IMAGE LIMITED Lesley Alva, VP PATIENT.SKIRT PANEL ASSEMBLER [address] [place] [address] [place] [address] Referral ID Status Reason Start Date Expiration Date V isits Requested Visits Authorized [id number] Closed Auto-Generate d Referral 06/26/2023 07/25/2024 1 1 [facility] for visit Narrative* Diagnostic Procedure Only (Urgent) - Closed Specialty Diagnoses / Procedures Referred By Contac t Referred To Contact XR IMAGING Diagnoses Right wrist pain Procedures XR WRIST GENERAL 3V PA/LAT/OBL RIGHT RADEX WRIST COMPLETE MINIMUM 3 VIEWS Christiane Leung, VP PATIENT.SKIRT PANEL ASSEMBLER [address] [place] [address] [place] [address] Referral ID Status Reason Start Date Expiration Date V isits Requested Visits Authorized [id number] Closed Auto-Generate d Referral 12/21/2021 01/20/2023 1 1 [facility] for visit Narrative* Diagnostic Procedure Only (Routine) - Closed Specialty Diagnoses / Procedures Referred By Contac t Referred To Contact [facility] Diagnoses Dyspareunia in female Procedures PELVIC US WHI US PELVIC NONOBSTETRIC REAL-TIME IMAGE COMPLETE Rubin Davila, VP PATIENT.SKIRT PANEL ASSEMBLER [address] [place] [address] [facility] [address] [place] [address] Referral ID Status Reason Start Date Expiration Date V isits Requested Visits Authorized [id number] Closed Auto-Generate d Referral 11/07/2023 11/06/2024 1 1 [facility] Summary Purpose Family History No Family History Records FoundNo Family History Records FoundNo Family History Records FoundNo Family History Records FoundNo Family History Records Found Advance Directives No Advanced Directives Records Found Advance Directive Response Recorded Date/ Time Living Will No July 25, 2022 9:42pm Power of Professor Of Astronomy No July 25 3 9:42pm Advance Directive Response Recorded Date/ Time Living Will No February 18 12:37pm Power of Professor Of Astronomy No February 18, 024 12:37pm Health Concerns Infection Onset Date Last Indicated Resolved Time COVID-19 Rule-Out 11/27/2021 11/27/2021 Medications Administered Section Administered Medications Medication Order MAR Action Action Date Dose Rate Site PPD ([place]) Intradermal Given 03/12/2022 14:58 EST 0.1 mL Left arm Chief Complaint and Reason for Visit Chief Complaint Chief Complaint LUMBAR SPINE RM 1 Spondylolysis, lumbar region LUMBAR SPINE xray room 1 Reason for Visit 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 Additional Source Comments INFORMATION SOURCE (unrecogn ized section and content) DATE CREATED AUTHOR 08/21/2017 [facility] DATE CREATED AUTHOR AUTHOR'S ORGANIZ ATION 01/18/2018 [facility] DATE CREATED AUTHOR AUTHOR'S ORGANIZ ATION 06/28/2023 [facility] DATE CREATED AUTHOR AUTHOR'S ORGANIZ ATION 10/20/2023 [facility] DATE CREATED AUTHOR AUTHOR'S ORGANIZ ATION 10/01/2024 [facility] Source Comments (unrecognize d section and content) In the event this informatio n is protected by the Federal Confidentiality of Alcohol and Drug Abuse Patient Records regulations: The Federal rules restrict any use of the information to criminally investigate or prosecute any alcohol or drug abuse patient.[facility] the event this information is protected by the Federal Confidentiality of Alcohol and Drug Abuse Patient Records regulations: The Federal rules restrict any use of the information to criminally investigate or prosecute any alcohol or drug abuse patient.[facility] the event this information is protected by the Federal Confidentiality of Alcohol and Drug Abuse Patient Records regulations: The Federal rules restrict any use of the information to criminally investigate or prosecute any alcohol or drug abuse patient.[facility] the event this information is protected by the Federal Confidentiality of Alcohol and Drug Abuse Patient Records regulations: The Federal rules restrict any use of the information to criminally investigate or prosecute any alcohol or drug abuse patient.[facility] the event this information is protected by the Federal Confidentiality of Alcohol and Drug Abuse Patient Records regulations: The Federal rules restrict any use of the information to criminally investigate or prosecute any alcohol or drug abuse patient.[facility] the event this information is protected by the Federal Confidentiality of Alcohol and Drug Abuse Patient Records regulations: The Federal rules restrict any use of the information to criminally investigate or prosecute any alcohol or drug abuse patient.[facility] the event this information is protected by the Federal Confidentiality of Alcohol and Drug Abuse Patient Records regulations: The Federal rules restrict any use of the information to criminally investigate or prosecute any alcohol or drug abuse patient.[facility] Hospital[facility] the event this information is protected by the Federal Confidentiality of Alcohol and Drug Abuse Patient Records regulations: The Federal rules restrict any use of the information to criminally investigate or prosecute any alcohol or drug abuse patient.[facility] Hospital[facility] the event this information is protected by the Federal Confidentiality of Alcohol and Drug Abuse Patient Records regulations: The Federal rules restrict any use of the information to criminally investigate or prosecute any alcohol or drug abuse patient.[facility] the event this information is protected by the Federal Confidentiality of Alcohol and Drug Abuse Patient Records regulations: The Federal rules restrict any use of the information to criminally investigate or prosecute any alcohol or drug abuse patient.[facility] Hospital[facility] the event this information is protected by the Federal Confidentiality of Alcohol and Drug Abuse Patient Records regulations: The Federal rules restrict any use of the information to criminally investigate or prosecute any alcohol or drug abuse patient.[facility] Hospital[facility] the event this information is protected by the Federal Confidentiality of Alcohol and Drug Abuse Patient Records regulations: The Federal rules restrict any use of the information to criminally investigate or prosecute any alcohol or drug abuse patient.[facility] HospitalIn the event this information is protected by the Federal Confidentiality of Alcohol and Drug Abuse Patient Records regulations: The Federal rules restrict any use of the information to criminally investigate or prosecute any alcohol or drug abuse patient.[facility] HospitalIn the event this information is protected by the Federal Confidentiality of Alcohol and Drug Abuse Patient Records regulations: The Federal rules restrict any use of the information to criminally investigate or prosecute any alcohol or drug abuse patient.[facility] HospitalIn the event this information is protected by the Federal Confidentiality of Alcohol and Drug Abuse Patient Records regulations: The Federal rules restrict any use of the information to criminally investigate or prosecute any alcohol or drug abuse patient.[facility] Hospital[facility] the event this information is protected by the Federal Confidentiality of Alcohol and Drug Abuse Patient Records regulations: The Federal rules restrict any use of the information to criminally investigate or prosecute any alcohol or drug abuse patient.[facility] Hospital[facility] the event this information is protected by the Federal Confidentiality of Alcohol and Drug Abuse Patient Records regulations: The Federal rules restrict any use of the information to criminally investigate or prosecute any alcohol or drug abuse patient.[facility] HospitalIn the event this information is protected by the Federal Confidentiality of Alcohol and Drug Abuse Patient Records regulations: The Federal rules restrict any use of the information to criminally investigate or prosecute any alcohol or drug abuse patient.[facility] HospitalIn the event this information is protected by the Federal Confidentiality of Alcohol and Drug Abuse Patient Records regulations: The Federal rules restrict any use of the information to criminally investigate or prosecute any alcohol or drug abuse patient.[facility] HospitalIn the event this information is protected by the Federal Confidentiality of Alcohol and Drug Abuse Patient Records regulations: The Federal rules restrict any use of the information to criminally investigate or prosecute any alcohol or drug abuse patient.[facility] HospitalIn the event this information is protected by the Federal Confidentiality of Alcohol and Drug Abuse Patient Records regulations: The Federal rules restrict any use of the information to criminally investigate or prosecute any alcohol or drug abuse patient.[facility] HospitalIn the event this information is protected by the Federal Confidentiality of Alcohol and Drug Abuse Patient Records regulations: The Federal rules restrict any use of the information to criminally investigate or prosecute any alcohol or drug abuse patient.[facility] HospitalIn the event this information is protected by the Federal Confidentiality of Alcohol and Drug Abuse Patient Records regulations: The Federal rules restrict any use of the information to criminally investigate or prosecute any alcohol or drug abuse patient.[facility] HospitalIn the event this information is protected by the Federal Confidentiality of Alcohol and Drug Abuse Patient Records regulations: The Federal rules restrict any use of the information to criminally investigate or prosecute any alcohol or drug abuse patient.[facility] HospitalIn the event this information is protected by the Federal Confidentiality of Alcohol and Drug Abuse Patient Records regulations: The Federal rules restrict any use of the information to criminally investigate or prosecute any alcohol or drug abuse patient.[facility] HospitalIn the event this information is protected by the Federal Confidentiality of Alcohol and Drug Abuse Patient Records regulations: The Federal rules restrict any use of the information to criminally investigate or prosecute any alcohol or drug abuse patient.[facility] HospitalIn the event this information is protected by the Federal Confidentiality of Alcohol and Drug Abuse Patient Records regulations: The Federal rules restrict any use of the information to criminally investigate or prosecute any alcohol or drug abuse patient.[facility] HospitalIn the event this information is protected by the Federal Confidentiality of Alcohol and Drug Abuse Patient Records regulations: The Federal rules restrict any use of the information to criminally investigate or prosecute any alcohol or drug abuse patient.[facility] HospitalIn the event this information is protected by the Federal Confidentiality of Alcohol and Drug Abuse Patient Records regulations: The Federal rules restrict any use of the information to criminally investigate or prosecute any alcohol or drug abuse patient.[facility] HospitalIn the event this information is protected by the Federal Confidentiality of Alcohol and Drug Abuse Patient Records regulations: The Federal rules restrict any use of the information to criminally investigate or prosecute any alcohol or drug abuse patient.[facility] HospitalIn the event this information is protected by the Federal Confidentiality of Alcohol and Drug Abuse Patient Records regulations: The Federal rules restrict any use of the information to criminally investigate or prosecute any alcohol or drug abuse patient.[facility] HospitalIn the event this information is protected by the Federal Confidentiality of Alcohol and Drug Abuse Patient Records regulations: The Federal rules restrict any use of the information to criminally investigate or prosecute any alcohol or drug abuse patient.[facility] HospitalIn the event this information is protected by the Federal Confidentiality of Alcohol and Drug Abuse Patient Records regulations: The Federal rules restrict any use of the information to criminally investigate or prosecute any alcohol or drug abuse patient.[facility] HospitalIn the event this information is protected by the Federal Confidentiality of Alcohol and Drug Abuse Patient Records regulations: The Federal rules restrict any use of the information to criminally investigate or prosecute any alcohol or drug abuse patient.[facility] HospitalIn the event this information is protected by the Federal Confidentiality of Alcohol and Drug Abuse Patient Records regulations: The Federal rules restrict any use of the information to criminally investigate or prosecute any alcohol or drug abuse patient.[facility] HospitalIn the event this information is protected by the Federal Confidentiality of Alcohol and Drug Abuse Patient Records regulations: The Federal rules restrict any use of the information to criminally investigate or prosecute any alcohol or drug abuse patient.[facility] HospitalIn the event this information is protected by the Federal Confidentiality of Alcohol and Drug Abuse Patient Records regulations: The Federal rules restrict any use of the information to criminally investigate or prosecute any alcohol or drug abuse patient.[facility] HospitalIn the event this information is protected by the Federal Confidentiality of Alcohol and Drug Abuse Patient Records regulations: The Federal rules restrict any use of the information to criminally investigate or prosecute any alcohol or drug abuse patient.[facility] HospitalIn the event this information is protected by the Federal Confidentiality of Alcohol and Drug Abuse Patient Records regulations: The Federal rules restrict any use of the information to criminally investigate or prosecute any alcohol or drug abuse patient.[facility] HospitalIn the event this information is protected by the Federal Confidentiality of Alcohol and Drug Abuse Patient Records regulations: The Federal rules restrict any use of the information to criminally investigate or prosecute any alcohol or drug abuse patient.[facility] HospitalIn the event this information is protected by the Federal Confidentiality of Alcohol and Drug Abuse Patient Records regulations: The Federal rules restrict any use of the information to criminally investigate or prosecute any alcohol or drug abuse patient.[facility] HospitalIn the event this information is protected by the Federal Confidentiality of Alcohol and Drug Abuse Patient Records regulations: The Federal rules restrict any use of the information to criminally investigate or prosecute any alcohol or drug abuse patient.[facility] HospitalIn the event this information is protected by the Federal Confidentiality of Alcohol and Drug Abuse Patient Records regulations: The Federal rules restrict any use of the information to criminally investigate or prosecute any alcohol or drug abuse patient.[facility] HospitalIn the event this information is protected by the Federal Confidentiality of Alcohol and Drug Abuse Patient Records regulations: The Federal rules restrict any use of the information to criminally investigate or prosecute any alcohol or drug abuse patient.[facility] HospitalIn the event this information is protected by the Federal Confidentiality of Alcohol and Drug Abuse Patient Records regulations: The Federal rules restrict any use of the information to criminally investigate or prosecute any alcohol or drug abuse patient.[facility] HospitalIn the event this information is protected by the Federal Confidentiality of Alcohol and Drug Abuse Patient Records regulations: The Federal rules restrict any use of the information to criminally investigate or prosecute any alcohol or drug abuse patient.[facility] HospitalIn the event this information is protected by the Federal Confidentiality of Alcohol and Drug Abuse Patient Records regulations: The Federal rules restrict any use of the information to criminally investigate or prosecute any alcohol or drug abuse patient.[facility] HospitalIn the event this information is protected by the Federal Confidentiality of Alcohol and Drug Abuse Patient Records regulations: The Federal rules restrict any use of the information to criminally investigate or prosecute any alcohol or drug abuse patient.[facility] HospitalIn the event this information is protected by the Federal Confidentiality of Alcohol and Drug Abuse Patient Records regulations: The Federal rules restrict any use of the information to criminally investigate or prosecute any alcohol or drug abuse patient.[facility] HospitalIn the event this information is protected by the Federal Confidentiality of Alcohol and Drug Abuse Patient Records regulations: The Federal rules restrict any use of the information to criminally investigate or prosecute any alcohol or drug abuse patient.[facility] HospitalIn the event this information is protected by the Federal Confidentiality of Alcohol and Drug Abuse Patient Records regulations: The Federal rules restrict any use of the information to criminally investigate or prosecute any alcohol or drug abuse patient.[facility] HospitalIn the event this information is protected by the Federal Confidentiality of Alcohol and Drug Abuse Patient Records regulations: The Federal rules restrict any use of the information to criminally investigate or prosecute any alcohol or drug abuse patient.[facility] Reason for Visit (unrecogniz ed section and content) Reason Comments Appointment Reason Comments Physical Reason Comments Nasal Congestion [...] Reason Comments Physical Reason Comments Follow Up Reason Comments spikes in heart rate when ju st sitting down Sitting in class up t0 135 then out in waiting room today 115 Reason Comments Abdominal Pain Gallbladder Reason Comments Results Reason Comments Well Woman Reason Comments Initial OB Visit Reason Comments 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 - Other PRAF Reason Comments US Specialty Diagnoses / Procedures Referred By Contac t Referred To Contact [facility] Diagnoses with uncertain dates in first trimester Procedures OBSTETRIC ULTRASOUND WHI US PREG UTERUS AFTER 1ST TRIMEST GESTATION Christiane Guallpa APRN.AIDA [address] [place] [address] Phone: tel: fax: [facility] [address] [place] [address] Referral ID Status Reason Start Date Expiration Date V isits Requested Visits Authorized [id number] Closed Auto-Generate d Referral 03/02/2024 03/02/2025 1 1 Reason Onset Date Comments Care 04/02/2024 Reason Comments Blacking out episode Reason Onset Date Comments Care 04/30/2024 Reason Onset Date Comments Care 05/26/2024 Specialty Diagnoses / Procedures Referred By Maricel dotson Referred To Contact [facility] Diagnoses with uncertain dates in first trimester (HCC) Procedures OBSTETRIC ULTRASOUND WHI US PREG UTERUS AFTER 1ST TRIMEST GESTATION Christiane Guallpa APRN.CNSintia [address] [place] [address] Phone: tel: fax: [facility] [address] [place] [address] Referral ID Status Reason Start Date Expiration Date V isits Requested Visits Authorized [id number] Closed Auto-Generate d Referral 03/02/2024 03/02/2025 1 1 Reason Comments PRAF Reason Onset Date Comments Care 06/24/2024 Reason Onset Date Comments Care 07/23/2024 Reason Onset Date Comments Care 08/06/2024 Reason Onset Date Comments Care 08/19/2024 Reason Onset Date Comments Care 09/02/2024 Reason Onset Date Comments Care 09/23/2024 Reason Onset Date Comments Population Health Navigation Outreach 09/28/2024 to PCP/OB Reason Onset Date Comments Care 09/29/2024 Care Teams (unrecognized sec tion and content) Emergency Nurse Relationship Specialty Start Date End Date Sera Scott MD [address] [place], [place] [address] [phone] PCP - General Internal Medicine 02/01/21 Emergency Nurse Relationship Specialty Start Date End Date Sera Scott MD [address] [place] [address] PCP - General Internal Medicine 02/01/21 Emergency Nurse Relationship Specialty Start Date End Date Sera Scott MD [address] [place], [place] [address] [phone] PCP - General Internal Medicine 02/01/21 Emergency Nurse Relationship Specialty Start Date End Date Sera Scott MD [address] [place] [address] PCP - General Internal Medicine 02/01/21 Emergency Nurse Relationship Specialty Start Date End Date Sera Scott MD [address] [facility] [place] [address] PCP - General Internal Medicine 02/01/21 Emergency Nurse Relationship Specialty Start Date End Date Sera Scott MD [address] [facility] [place] [address] PCP - General Internal Medicine 02/01/21 Emergency Nurse Relationship Specialty Start Date End Date Sera Scott MD [address] [facility] [place] [address] PCP - General Internal Medicine 02/01/21 Emergency Nurse Relationship Specialty Start Date End Date Sera Scott MD [address] [facility] [place] [address] PCP - General Internal Medicine 02/01/21 Emergency Nurse Relationship Specialty Start Date End Date Sera Scott MD [address] [facility] [place] [address] PCP - General Internal Medicine 02/01/21 Emergency Nurse Relationship Specialty Start Date End Date Sera Scott MD [address] [facility] [place] [address] PCP - General Internal Medicine 02/01/21 Team Status: Active Member Role Status Dates Dr. Jeane Segovia MD Family Provider Active Dr. Sera Scott MD Primary Care Provider Active Team Status: Inactive Member Role Status Dates Dr. Elvia Lambert MD Emergency Provider Active Dr. Sera Scott MD Primary Care Provider Active Emergency Nurse Relationship Specialty Start Date End Date Sera Scott MD [address] [facility] [place] [address] PCP - General Internal Medicine 02/01/21 Emergency Nurse Relationship Specialty Start Date End Date Sera Scott MD [address] [facility] [place] [address] PCP - General Internal Medicine 02/01/21 Emergency Nurse Relationship Specialty Start Date End Date Sera Scott MD [address] [place], [place] [address] PCP - General Internal Medicine 02/01/21 Team Status: Active Member Role Status Dates Dr. Jeane Segovia MD Family Provider Active No Primary Care Physician Primary Care Provider Active Team Status: Inactive Member Role Status Dates Dr. Sera Scott MD Primary Care Provider, Referring Provider Active Dr. Bert Almanza DO Attending Provider Active Team Status: Inactive Member Role Status Dates Dr. Sera Scott MD Primary Care Provider Active Dr. Carlo Mao MD Attending Provider Active Team Status: Inactive Member Role Status Dates No Primary Care Physician Primary Care Provider, Refer ring Provider Active Dr. Bert Almanza DO Attending Provider Active Team Status: Inactive Member Role Status Dates No Primary Care Physician Primary Care Provider Active Dr. Carlo Mao MD Attending Provider Active Team Status: Inactive Member Role Status Dates Dr. Bert Almanza DO Attending Provider, Referring P rovider Active No Primary Care Physician Primary Care Provider Active Emergency Nurse Relationship Specialty Start Date End Date Sera Scott MD [address] [place] [address] PCP - General Internal Medicine 02/01/21 Emergency Nurse Relationship Specialty Start Date End Date Sera Scott MD [address] [place] [address] PCP - General Internal Medicine 02/01/21 Emergency Nurse Relationship Specialty Start Date End Date Sera Scott MD [address] [place], [place] [address] PCP - General Internal Medicine 02/01/21 Emergency Nurse Relationship Specialty Start Date End Date Sera Scott MD [address] [place] [address] PCP - General Internal Medicine 02/01/21 Emergency Nurse Relationship Specialty Start Date End Date Sera Scott MD [address] [place], [place] [address] PCP - General Internal Medicine 02/01/21 Emergency Nurse Relationship Specialty Start Date End Date Sera Scott MD [address] [place] [address] PCP - General Internal Medicine 02/01/21 Emergency Nurse Relationship Specialty Start Date End Date Sera Scott MD [address] [place] [address] PCP - General Internal Medicine 02/01/21 Emergency Nurse Relationship Specialty Start Date End Date Sera Scott MD [address] [place] [address] PCP - General Internal Medicine 02/01/21 Emergency Nurse Relationship Specialty Start Date End Date Sera Scott MD [address] [place] [address] PCP - General Internal Medicine 02/01/21 Carmella Casper PA-C [address] [place] [address] [facility] 01/19/24 Sarah Jaimes APRN.CNP [address] [place] [address] [employer] 01/19/24 Felisa Parmar PA-C [address] [place] [address] [facility] 01/19/24 Emergency Nurse Relationship Specialty Start Date End Date Sera Scott MD [address] [place] [address] PCP - General Internal Medicine 02/01/21 Carmella Casper PA-C [address] [place] [address] [facility] 01/19/24 Sarah Jaimes APRN.SKIRT PANEL ASSEMBLER [address] [place] [address] [facility] 01/19/24 Felisa Parmar PA-C [address] [place] [address] [facility] 01/19/24 Emergency Nurse Relationship Specialty Start Date End Date Sera Scott MD [address] [place] [address] PCP - General Internal Medicine 02/01/21 Carmella Casper PA-C [address] [place] [address] [facility] 01/19/24 Sarah Jaimes, KONRAD.SKIRT PANEL ASSEMBLER [address] [place] [address] [facility] 01/19/24 Felisa Parmar PA-C [address] [place] [address] [facility] 01/19/24 Emergency Nurse Relationship Specialty Start Date End Date Sera Scott MD [address] [place] [address] PCP - General Internal Medicine 02/01/21 Carmella Casper PA-C [address] [place] [address] [facility] 01/19/24 Sarah Jaimes APRN.SKIRT PANEL ASSEMBLER [address] [place] [address] [facility] 01/19/24 Felisa Parmar PA-C [address] [place] [address] [facility] 01/19/24 Emergency Nurse Relationship Specialty Start Date End Date Sera Scott MD [address] [place] [address] PCP - General Internal Medicine 02/01/21 Carmella Casper PA-C [address] [place] [address] [facility] 01/19/24 Sarah Jaimes APRN.SKIRT PANEL ASSEMBLER [address] [place] [address] [facility] 01/19/24 Felisa Parmar PA-C [address] [place] [address] [facility] 01/19/24 Emergency Nurse Relationship Specialty Start Date End Date Sera Scott MD [address] [place] [address] PCP - General Internal Medicine 02/01/21 Sarah Jaimes APRN.SKIRT PANEL ASSEMBLER [address] [place], [place] [address] [facility] 01/19/24 Emergency Nurse Relationship Specialty Start Date End Date Sera Scott MD [address] [place] [address] PCP - General Internal Medicine 02/01/21 Sarah Jaimes APRN.SKIRT PANEL ASSEMBLER [address] [place] [address] [employer] 01/19/24 Emergency Nurse Relationship Specialty Start Date End Date Sera Scott MD [address] [place] [address] PCP - General Internal Medicine 02/01/21 Sarah Jaimes VP PATIENT.SKIRT PANEL ASSEMBLER [address] [place] [address] [facility] 01/19/24 Emergency Nurse Relationship Specialty Start Date End Date Sera Scott MD [address] [place] [address] PCP - General Internal Medicine 02/01/21 Carmella Casper PA-C [address] [place] [address] [facility] 01/19/24 05/03/24 Sarah Jaimes APRN.SKIRT PANEL ASSEMBLER [address] [place] [address] [facility] 01/19/24 Felisa Parmar PA-C [address] [facility] [place] [address] [facility] 01/19/24 05/03/24 Emergency Nurse Relationship Specialty Start Date End Date Sera Scott MD [address] [facility] [place] [address] PCP - General Internal Medicine 02/01/21 Sarah Jaimes APRN.SKIRT PANEL ASSEMBLER [address] [place] [address] [facility] 01/19/24 Emergency Nurse Relationship Specialty Start Date End Date Sera Scott MD [address] [place] [address] PCP - General Internal Medicine 02/01/21 Sarah Jaimes APRN.SKIRT PANEL ASSEMBLER [address] [place] [address] [facility] 01/19/24 Emergency Nurse Relationship Specialty Start Date End Date Sera Scott MD [address] [place] [address] PCP - General Internal Medicine 02/01/21 Sarah Jaimes APRN.SKIRT PANEL ASSEMBLER [address] [place] [address] [facility] 01/19/24 Emergency Nurse Relationship Specialty Start Date End Date Sera Scott MD [address] [place] [address] PCP - General Internal Medicine 02/01/21 Sarah Jaimes APRN.SKIRT PANEL ASSEMBLER [address] [place] [address] [employer] Internal [facility] 01/19/24 Emergency Nurse Relationship Specialty Start Date End Date Sera Scott MD [address] [facility] [place] [address] PCP - General Internal Medicine 02/01/21 Sarah Jaimes APRN.SKIRT PANEL ASSEMBLER [address] [place] [address] [employer] 01/19/24 Emergency Nurse Relationship Specialty Start Date End Date Sera Scott MD [address] [place] [address] PCP - General Internal Medicine 02/01/21 Sarah Jaimes APRN.SKIRT PANEL ASSEMBLER [address] [place] [address] [employer] 01/19/24 Emergency Nurse Relationship Specialty Start Date End Date Sera Scott MD [address] [place] [address] PCP - General Internal Medicine 02/01/21 Sarah Jaimes APRN.SKIRT PANEL ASSEMBLER [address] [place] [address] [employer] [facility] 01/19/24 Emergency Nurse Relationship Specialty Start Date End Date Sera Scott MD [address] [facility] [place] [address] PCP - General Internal Medicine 02/01/21 Sarah Jaimes APRN.SKIRT PANEL ASSEMBLER [address] [place] [address] [employer] [facility] 01/19/24 Emergency Nurse Relationship Specialty Start Date End Date Sera Scott MD [address] [place] [address] PCP - General Internal Medicine 02/01/21 Sarah Jaimes APRN.SKIRT PANEL ASSEMBLER [address] [facility] [place] [address] [employer] 01/19/24 Emergency Nurse Relationship Specialty Start Date End Date Sera Scott MD [address] [facility] [place] [address] PCP - General Internal Medicine 02/01/21 Sarah Jaimes APRN.SKIRT PANEL ASSEMBLER [address] [facility] [place] [address] [employer] [facility] 01/19/24 Emergency Nurse Relationship Specialty Start Date End Date Sera Scott MD [address] [facility] [place] [address] PCP - General Internal Medicine 02/01/21 Sarah Jaimes APRN.SKIRT PANEL ASSEMBLER [address] [facility] [place] [address] [employer] [facility] 01/19/24 Emergency Nurse Relationship Specialty Start Date End Date Sera Scott MD [address] [facility] [place] [address] PCP - General Internal Medicine 02/01/21 Sarah Jaimes APRN.SKIRT PANEL ASSEMBLER [address] [facility] [address] [facility] 01/19/24 Goals (unrecognized section and content) Goals may be documented in a n alternate sectionGoals may be documented in an alternate section FOR RECORDS PERTAINING TO PATIENTS WHO ARE [...] BE BASED ON THE PRIMARY CLINICAL RECORDS. [employer] provides no warranty or guarantee of the accuracy or completeness of information in this document.
--- OUTSIDE RECORDS SUMMARY | 2024-10-01 05:42 | XMS RPT_ITS | CCD ---
Author Organization [facility] Care Team Providers Care Three Dimensional Map Modeler Name Role Phone GATITO, GAMAL S Unavailable [...] Care Unavailable Carissa Rojas Attending Unavailable Daylin, [place] Referring Unavailable Daylin, [place] Attending Unavailable Ganta, Sera Primary Care Unavailable Ganta, Sera Primary Care Unavailable Daylin, Carlo Referring Unavailable Daylin, [place] Attending Unavailable Daylin, [place] Attending Unavailable Care Physician, No Primary Primary Care Unava ilable Daylin, [place] Attending Unavailable Ganta, Sera Primary Care Unavailable Daylin, Carlo Referring Unavailable Daylin, Carlo Attending Unavailable Ganta, Sera Primary Care Unavailable Ganta, Sera Primary Care Unavailable Eleazar FREEZING MACHINE OPERATOR, Giselle Attending Unavailable Denbow PA-C, Carmella L Unavailable Older RAILWAY STATION MANAGER.HELP DESK ASSOCIATE, Sarah Unavailable Agata PA-C, Felisa Unavailable Denbow PA-C, Carmella L Unavailable Bogner PA-C, Felisa Unavailable GANTA, SERA Primary Care Unavailable GUALLPA, [...] Unavailable NEYHART LEDESMA, MELISSA Attending Unavail able [facility] Primary Care Unavailable MELISSA SANDERSON Attending Unavail able [facility] Primary Care Unavailable MELISSA SANDERSON Attending Unavail able [facility] Primary Care Unavailable BRAYAN RUBIN Referring Unavailable [facility] Primary Care Unavailable CHRISTIANE GUALLPA Attending Unavailable [facility] Primary Care Unavailable CHRISTIANE GUALLPA Referring Unavailable [facility] Primary Care Unavailable MELISSA SANDERSON Attending Unavail able Allergies Allergy Classification Reported Allergen(s) Allergy Type Date of Onset Reaction(s) Facility (4 sources) pumpkin allergenic extract; Translations: [PUMPKIN] Drug Allergy 07-25-2022 [facility] (20 sources) Pumpkin seed extract Drug Allergy 03-08-2023 Itching [facility] (1 source) pumpkin allergenic extract Drug Allergy 08-28-2023 [facility] Repository Medications Current Medications Medication Drug [...] DAILY January 10, 2023 12:00am PNV#24/iron aa kay/folic acid (COMPLETE ORAL) (20 sources) PNV#24/iron aa [...] on above: Take 2 tablets by mo [facility] once daily for 5 days. Tszmuzwf-Ps-Zaa-Fe- FA ( VITAMIN) tab (2 sources) End: 2 take 1 tablet by mouth once Zfczlnck-Km-Zcs-Fe-F A ( VITAMIN) tab Take 1 tablet by mouth. 0 09/11/2021 Discontinued (Discontinued by Patient) take 1 tablet by mouth once Pren atal Hosofoyk-Ub-Gzz-Fe-FA ( VITAMIN) tab Take 1 tablet by mouth. 0 Active Comment on above: [facility] rizat[facility]an 10 mg oral tablet (2 sources) [...] [History of delivery by vacuum extraction, currently ([facility])] Onset: 03-02-2024 Episodic Other complications of (1 [...] of ; Translations: [24 weeks gestation of ([facility])] Onset: 06-24-2024 Episodic Residual codes; unclassified (1 source) 20 weeks gestation of ; Translations: [20 weeks gestation of ([facility])] Onset: 05-26-2024 Episodic Residual codes; unclassified (1 source) 16 weeks gestation of ; Translations: [16 weeks gestation of ] Onset: 04-30-2024 Episodic Residual codes; unclassified (1 source) 12 weeks gestation of ; Translations: [12 weeks gestation of ] Onset: 03-31-2024 Episodic Results Test Name Value Interpretation Reference Range Facility URINE OB DIP B/Oon 5 Glucose Ql (U) Negative Neg mg/dL [facility] Protein.monoclonal (U) [Mass/Vol] Negative Neg mg/dL [facility] ROUTINE, GROUP B ST REPTOCOCCUS BY PCRon 09-16-2024 ROUTINE, GROUP B STREPTOCOCCUS BY PCR Not detected Normal [facility] Comment on above: Performed By: #### G BPCR #### [facility] CLIA [id number] [address] [place] [address] [place] URINE OB DIP B/Oon 5 Glucose Ql (U) Negative Neg mg/dL [facility] Protein.monoclonal (U) [Mass/Vol] Negative Neg mg/dL [facility] GLUCOSE GESTATIONAL, 1 HOURo n 07-31-2024 Glucose 1 Hr post Unsp challenge [Mass/Vol] 157 mg/dL Normal 74-179 [facility] Comment on above: Order Comment: Speci men Type: BLOOD SPECIMENOrdering Facility: [facility] Address: [address] [place] [address] Result Comment: [facility] Congress of Obstetricians and Gynecologists (Yared/Casa) guidelines state gestational diabetes mellitus is present when 2 or more of the plasma glucose concentrations meet or exceed the following levels: fastin mg/dl, 1 hr: 180 mg/dl, 2 hr: 155 mg/dl, and 3 hr: 140 mg/dl. Performed By: #### G BPCR #### [facility] CLIA [id number] [address] [place] [address] [place] GLUCOSE GESTATIONAL, 2 HOURo n 07-31-2024 Glucose 2 Hr post Unsp challenge [Mass/Vol] 154 mg/dL Normal 74-154 [facility] Comment on above: Order Comment: Speci men Type: BLOOD SPECIMENOrdering Facility: [facility] Address: [address] [place] [address] Result Comment: [facility] of Obstetricians and Gynecologists (Yared/Casa) guidelines state gestational diabetes mellitus is present when 2 or more of the plasma glucose concentrations meet or exceed the following levels: fastin mg/dl, 1 hr: 180 mg/dl, 2 hr: 155 mg/dl, and 3 hr: 140 mg/dl. Performed By: #### G TGST2 ####[facility] [id number] [address] [place] GLUCOSE GESTATIONAL, 3 HOURo n 07-31-2024 Glucose 3 Hr post Unsp challenge [Mass/Vol] 129 mg/dL Normal 74-139 [facility] Comment on above: Order Comment: Speci men Type: BLOOD SPECIMENOrdering Facility: [facility] Address: [address] [place] [address] Result Comment: [facility] Congress of Obstetricians and Gynecologists (Yared/Casa) guidelines state gestational diabetes mellitus is present when 2 or more of the plasma glucose concentrations meet or exceed the following levels: fastin mg/dl, 1 hr: 180 mg/dl, 2 hr: 155 mg/dl, and 3 hr: 140 mg/dl. Performed By: #### G TGST3 ####[facility] [id number] [address] [place] GLUCOSE GESTATIONAL, FASTING on 07-31-2024 Glucose post fast [Mass/Vol] 81 mg/dL Normal 74-94 [facility] Comment on above: Order Comment: Speci men Type: BLOOD SPECIMENOrdering Facility: [facility] Address: [address], [place] [address] Result Comment: [facility] Congress of Obstetricians and Gynecologists (Yared/Casa) guidelines state gestational diabetes mellitus is present when 2 or more of the plasma glucose concentrations meet or exceed the following levels: fastin mg/dl, 1 hr: 180 mg/dl, 2 hr: 155 mg/dl, and 3 hr: 140 mg/dl. Performed By: #### G [facility] ####[facility] MEDINA HOSPITALJACQUIE [id number] [address] OF [place] CNPMary 07-24-2024 [facility] -- LOUANN CLEMENTS ([id number]) 1995 F Date Time Provider Department 07/24/24 NURSE PERSONNEL COUNSELOR [place] OGFVWE During your visit today, we recorded [...] Status:Closed by SYMONE ABDI on 07/24/24 Normal [facility] CBC W Auto Differential pane l (Bld)on 07-23-2024 Basophils (Bld) [#/Vol] 0.05 10*3/uL Normal <0.11 [facility] Comment on above: Order Comment: Speci men Type: BLOOD SPECIMENOrdering Facility: [facility] Address: [address] [place] [address] Performed By: #### 5 7021-8 ####[facility] [id number] [place] [address] [place] Basophils/100 WBC (Bld) 0.4 % Normal [facility] Comment on above: Order Comment: Speci men Type: BLOOD SPECIMENOrdering Facility: [facility] Address: [address] [place] [address] Performed By: #### 5 7021-8 ####[facility] [id number] [place] [address] [place] Differential cell count method Nom (Bld) Auto Normal [facility] Comment on above: Order Comment: Speci men Type: BLOOD SPECIMENOrdering Facility: [facility] Address: [address] [place] [address] Performed By: #### 5 7021-8 ####[facility] [id number] [place] [address] [place] Eosinophils (Bld) [#/Vol] 0.11 10*3/uL Normal <0.46 [facility] Comment on above: Order Comment: Speci men Type: BLOOD SPECIMENOrdering Facility: [facility] Address: [address] [place] [address] Performed By: #### 5 7021-8 ####[facility] [id number] [place] [address] [place] Eosinophils/100 WBC (Bld) 0.9 % Normal [facility] Comment on above: Order Comment: Speci men Type: BLOOD SPECIMENOrdering Facility: [facility] Address: [address] [place] [address] Performed By: #### 5 7021-8 ####[facility] [id number] [place] [address] [place] Erythrocyte distribution width (RBC) [Ratio] 13.0 % Normal 11.5-15.0 [facility] Comment on above: Order Comment: Speci men Type: BLOOD SPECIMENOrdering Facility: [facility] Address: [address] [place] [address] Performed By: #### 5 7021-8 ####[facility] [id number] [place] [address] [place] Hematocrit (Bld) [Volume fraction] 33.1 % Low 36.0-46.0 [facility] Comment on above: Order Comment: Speci men Type: BLOOD SPECIMENOrdering Facility: [facility] Address: [address] [place] [address] Performed By: #### 5 7021-8 ####[facility] PIERCEPOWELL BUTTEJACQUIE [id number] [place] [address] [place] Hemoglobin (Bld) [Mass/Vol] 11.2 g/dL Low 11.5-15.5 [facility] Comment on above: Order Comment: Speci men Type: BLOOD SPECIMENOrdering Facility: [facility] Address: [address] [place] [address] Performed By: #### 5 7021-8 ####[facility] [id number] [place] [address] [place] Immature granulocytes (Bld) [#/Vol] 0.16 10*3/uL High <0.10 [facility] Comment on above: Order Comment: Speci men Type: BLOOD SPECIMENOrdering Facility: [facility] Address: [address] [place] [address] Performed By: #### 5 7021-8 ####[facility] BEACHA [id number] [place] [address] [place] Immature granulocytes/100 WBC (Bld) 1.3 % Normal [facility] Comment on above: Order Comment: Speci men Type: BLOOD SPECIMENOrdering Facility: [facility] Address: [address] [place] [address] Performed By: #### 5 7021-8 ####[facility] [id number] [place] [address] [place] Lymphocytes (Bld) [#/Vol] 1.90 10*3/uL Normal 1.00-4.00 [facility] Comment on above: Order Comment: Speci men Type: BLOOD SPECIMENOrdering Facility: [facility] Address: [address] [place] [address] Performed By: #### 5 7021-8 ####[facility] [id number] [place] [address] [place] Lymphocytes/100 WBC (Bld) 15.3 % Normal [facility] Comment on above: Order Comment: Speci men Type: BLOOD SPECIMENOrdering Facility: [facility] Address: [address] [place] [address] Performed By: #### 5 7021-8 ####[facility] [id number] [place] [address] [place] MCH (RBC) [Entitic mass] 32.2 pg Normal 26.0-34.0 [facility] Comment on above: Order Comment: Speci men Type: BLOOD SPECIMENOrdering Facility: [facility] Address: [address] [place] [address] Performed By: #### 5 7021-8 ####[facility] [id number] [place] [address] [place] MCHC (RBC) [Mass/Vol] 33.8 g/dL Normal 30.5-36.0 [facility] Comment on above: Order Comment: Speci men Type: BLOOD SPECIMENOrdering Facility: [facility] Address: [address] [place] [address] Performed By: #### 5 7021-8 ####[facility] [id number] [place] [address] [place] MCV (RBC) [Entitic vol] 95.1 fL Normal 80.0-100.0 [facility] Comment on above: Order Comment: Speci men Type: BLOOD SPECIMENOrdering Facility: [facility] Address: [address] [place], [place] [address] Performed By: #### 5 7021-8 ####[facility] [id number] [place] [id number] [place] Monocytes (Bld) [#/Vol] 0.57 10*3/uL Normal <0.87 [facility] Comment on above: Order Comment: Speci men Type: BLOOD SPECIMENOrdering Facility: [facility] Address: [address] [place] [address] Performed By: #### 5 7021-8 ####[facility] [id number] [place] [address] [place] Monocytes/100 WBC (Bld) 4.6 % Normal [facility] Comment on above: Order Comment: Speci men Type: BLOOD SPECIMENOrdering Facility: [facility] Address: [address] [place] [address] Performed By: #### 5 7021-8 ####[facility] [id number] [place] [address] [place] Neutrophils (Bld) [#/Vol] 9.61 10*3/uL High 1.45-7.50 [facility] Comment on above: Order Comment: Speci men Type: BLOOD SPECIMENOrdering Facility: [facility] Address: [address] [place] [address] Performed By: #### 5 7021-8 ####[facility] [id number] [place] [address] [place] Neutrophils/100 WBC (Bld) 77.5 % Normal [facility] Comment on above: Order Comment: Speci men Type: BLOOD SPECIMENOrdering Facility: [facility] Address: [address] [place] [address] Performed By: #### 5 7021-8 ####[facility] [id number] [place] [address] [place] Nucleated RBC (Bld) [#/Vol] 10*3/uL Normal <0.01 [facility] Comment on above: Order Comment: Speci men Type: BLOOD SPECIMENOrdering Facility: [facility] Address: [address] [place] [address] Performed By: #### 5 7021-8 ####[facility] PIERCEGEOVANNY [id number] [place] [address] [place] Nucleated RBC/100 WBC (Bld) [Ratio] 0.0 /100 WBC Normal [facility] Comment on above: Order Comment: Speci men Type: BLOOD SPECIMENOrdering Facility: [facility] Address: [address] [place] [address] Performed By: #### 5 7021-8 ####[facility] PIERCEPOWELL BUTTENCLIA [id number] [place] [address] [place] Platelet mean volume (Bld) [Entitic vol] 10.4 fL Normal 9.0-12.7 [facility] Comment on above: Order Comment: Speci men Type: BLOOD SPECIMENOrdering Facility: [facility] Address: [address] [place] [address] Performed By: #### 5 7021-8 ####[facility] [id number] [place] [address] [place] Platelets (Bld) [#/Vol] 193 10*3/uL Normal 150-400 [facility] Comment on above: Order Comment: Speci men Type: BLOOD SPECIMENOrdering Facility: [facility] Address: [address] [place] [address] Performed By: #### 5 7021-8 ####[facility] [id number] [place] [address] [place] RBC (Bld) [#/Vol] 3.48 10*6/uL Low 3.90-5.20 [facility] Comment on above: Order Comment: Speci men Type: BLOOD SPECIMENOrdering Facility: [facility] Address: [address] [place] [address] Performed By: #### 5 7021-8 ####[facility] [id number] [place] [address] [place] WBC (Bld) [#/Vol] 12.40 10*3/uL High 3.70-11.00 [facility] Comment on above: Order Comment: Speci men Type: BLOOD SPECIMENOrdering Facility: [facility] Address: [address] [place] [address] Performed By: #### 5 7021-8 ####[facility] [id number] [place] [address] [place] GESTATIONAL GLUCOSE SCREEN, 1-HOUR, 50 GRAM, NON-FASTINGon 07-23-2024 Glucose [Mass/Vol] 153 mg/dL High 74-134 [facility] Comment on above: Order Comment: Speci men Type: BLOOD SPECIMENOrdering Facility: [facility] Address: [address] [place] [address] Result Comment: [facility] Congress of Obstetricians and Gynecologists (Yared/Casa) guidelines state a gestational diabetes mellitus positive screen is made, in women not previously diagnosed with overt diabetes, when the 1 hr plasma glucose level is equal to or above 140 mg/dL. The [facility] Transmission Calibration Engineer and [facility] [place] recommends a 135 mg/dL cutoff. Performed By: #### G BPCR #### [facility] CLIA [id number] [address] [place] [address] [place] Reagin and Treponema pallidu m IgG and IgM [Interp]on 07-23-2024 T. pallidum IgG+IgM IA Ql (S) Non-Reactive Normal Nonreactive [facility] Comment on above: Order Comment: Speci men Type: BLOOD SPECIMENOrdering Facility: [facility] Address: [address] [place] [address] Performed By: #### 7 3752-8 ####[facility] LABCLIA [id number] [place] [address] [place] Reagin+T pallidum IgG+IgM Se rPl-Impon 07-23-2024 Reagin and Treponema pallidum IgG and IgM [Interp] Cannot exclude recent Treponemal infection if specimen collected within 7-10 days after appearance of suspect lesions or 2-3 weeks after an exposure. Clinical correlation is required. Normal [facility] Comment on above: Order Comment: Speci men Type: BLOOD SPECIMENOrdering Facility: [facility] Address: [address] [place] [address] Performed By: #### 7 3752-8 ####[facility] LABCLIA [id number] [address] OF [facility] TYPE + SCREEN PRENATALon ABO A Normal [facility] Comment on above: Order Comment: Speci men Type: BLOOD SPECIMENOrdering Facility: [facility] Address: [address] [place] [address] Performed By: #### T SPN ####CC MAIN BLOOD BANKCLIA [id number] [place] [address] [place] Rh Nom (Bld) Negative Normal [facility] Comment on above: Order Comment: Speci men Type: BLOOD SPECIMENOrdering Facility: [facility] Address: [address] [place] [address] Performed By: #### T SPN ####CC MAIN BLOOD BANKCLIA [id number] [place] [address] [place] TYPE AND SCREEN EXPIRATION 07/26/2024 23:59 Normal [facility] Comment on above: Order Comment: Speci men Type: BLOOD SPECIMENOrdering Facility: [facility] Address: [address] [place] [address] Performed By: #### T SPN ####[facility] MAIN BLOOD BANKCLIA [id number] [place] [address] [place] CNPNon 05-27-2024 CNPN Telephone (OGFVWE) -- LOUANN CLEMENTS ([id number]) 1995 F Date Time Provider Department 05/27/24 NURSE PERSONNEL COUNSELOR [place] OGFVWE During your visit today, we recorded the following information about you: Symone Abdi, RN 05/27/2024 10:35 AM Signed 2nd risk assessment form submitted 05/27/24 Symone Abdi RN Allergies As of Date: 05/27/2024 Noted Allergy Reaction PUMPKIN 03/08/2023 9 - Itching Comments: Swells itchy , hives Date Reviewed: 05/26/2024 Reviewed by: Mita Ward, KTAHY - Fully Assessed Reason for Visit: PRAF [...] Status:Closed by SYMONE ABDI on 05/27/24 Normal [facility] Examination level ultrasound on 05-27-2024 Indication [...] 14 oz EFW by: Hadlock (HC-AC-FL) Extended Data Analyst 4.8 mm CM 4.6 mm 35% Nicolaides [...] normal LVOT view: normal 3-vessel view: normal 9-lhkmrf-hwttgdy view: normal Heart / Thorax Situs: situs [...] Read By: Jeanine Acosta M.D. MATERNAL MEDICINE [facility] Examination level ultrasound on 05-26-2024 Radiology Study observation (narrative) [facility] CNPNon 04-29-2024 CNPN Telephone (OBGYWM) -- LOUANN CLEMENTS ([id number]) 1995 F Date Time Provider Department 04/29/24 [...] lowered Pt to floor. Pt then vomited. [place] weak. Could see again. [place] hot. Afebrile. BP was 115/68. Pt saw [...] Status:Closed by SOHEILA GARCIA on 04/29/24 [facility] [id number] PLUSon 04-02-2024 Cell-free DNA./Cell-free DNA.total Dosage of chromosome-specific cfDNA (cfDNA) [Molar fraction] 22% Normal [facility] Comment on above: Order Comment: Speci men Type: BLOOD SPECIMENOrdering Facility: [facility] Address: [address] [place] [address] Performed By: #### G BPCR #### [facility] CLIA [id number] [address] [place] [address] [place] Chr 13+18+21+X+Y aneuploidy Dosage of chromosome-specific cfDNA Ql (cfDNA) Negative Normal [facility] Comment on above: Order Comment: Speci men Type: BLOOD SPECIMENOrdering Facility: [facility] Address: [address] [place] [address] Performed By: #### G BPCR #### [facility] CLIA [id number] [address] [place] [address] OF [place] Chr 21 trisomy Dosage of chromosome-specific cfDNA Ql (cfDNA) Negative Normal [facility] Comment on above: Order Comment: Speci men Type: BLOOD SPECIMENOrdering Facility: [facility] Address: [address] [place] [address] Performed By: #### G BPCR #### [facility] CLIA [id number] [address] [place] [address] [place] Chr X and Y aneuploidy risk Sequencing Ql (cfDNA) [Interp] Not detected Normal [facility] Comment on above: Order Comment: Speci men Type: BLOOD SPECIMENOrdering Facility: [facility] Address: [address] [place] [address] Result Comment: Not Detected Not Detected Performed By: #### G BPCR #### [facility] CLIA [id number] [address] [place] [address] [place] Citation Kash (Reference lab test) Comment Normal [facility] Comment on above: Order Comment: Speci men Type: BLOOD SPECIMENOrdering Facility: [facility] Address: [address] [place] [address] Result Comment: 1. P ambrosio AVILEZ, et al. Cornine Med. 2012;14(3):296-305. 2. Chris GRIFFIN et al. Prenat Diag. 2013;33(6):591-597. 3. Dimitri Westfall et al. Clin Chem. 2015 Apr;61(4):608-616. 4. Nii AVILEZ, et al. Corinne Med. 2011;13(11):913-920. 5. ACOG/SMFM Practice Bulletin No. 226, Nov 2019. Performed By: #### G BPCR #### [facility] CLIA [id number] [address] [place] [address] [place] Gestational age Estimated from conception date Johnson Normal [facility] Comment on above: Order Comment: Speci men Type: BLOOD SPECIMENOrdering Facility: [facility] Address: [address] [place] [address] Performed By: #### G BPCR #### [facility] CLIA [id number] [address] [place] [address] [place] GESTATIONALAGE AGE > OR = 9W Yes Normal [facility] Comment on above: Order Comment: Speci men Type: BLOOD SPECIMENOrdering Facility: [facility] Address: [address] [place] [address] Performed By: #### G BPCR #### [facility] CLIA [id number] [address] [place] [address] [place] Laboratory comment Kash (Report) Comment Normal [facility] Comment on above: Order Comment: Speci men Type: BLOOD SPECIMENOrdering Facility: [facility] Address: [address] [place] [address] Result Comment: The MaterniT(R) 21 PLUS laboratory-developed test (LDT) analyzes circulating cell-free DNA from a maternal blood sample. This test is used for screening purposes and not diagnostic. Clinical correlation is recommended. Validation data on twin pregnancies is limited and the ability of this test to detect aneuploidy in higher multiple gestations has not yet been validated. Performed By: #### G BPCR #### [facility] CLIA [id number] [address] [place] [address] director of pediatric rehabilitation name Nom (Provider) Comment Normal [facility] Comment on above: Order Comment: Speci men Type: BLOOD SPECIMENOrdering Facility: [facility] Address: [address] [place] [address] Result Comment: This specimen showed an expected representation of chromosome 21, 18 and 13 material. Clinical correlation is suggested. Comment Reji Castellano MD, PhD, Director, [employer] Performed By: #### G BPCR #### [facility] CLIA [id number] [address] [place] [address] LIMITATIONS OF THE TEST Comment Normal [facility] Comment on above: Order Comment: Speci men Type: BLOOD SPECIMENOrdering Facility: [facility] Address: [address] [place] [address] Result Comment: Whil e the results of [...] Fragmin(R)). Performed By: #### G BPCR #### [facility] CLIA [id number] [address] [place] [address] [place] Monosomy X risk Dosage of chromosome-specific cfDNA Ql (Plasma cell-free+WBC DNA) [Interp] Not detected Normal [facility] Comment on above: Order Comment: Speci alexandra Type: BLOOD SPECIMENOrdering Facility: [facility] Address: [address] [place] [address] Performed By: #### G BPCR #### [facility] CLIA [id number] [address] [place] [address] STATES [facility] NEGATIVE PREDICTIVE VALUE Note Normal [facility] Comment on above: Order Comment: Mora morris Type: BLOOD SPECIMENOrdering Facility: [facility] Address: [address] [place] [address] Result Comment: The Negative Predictive Value (NPV) for trisomy 21, 18, and 13 is greater than 99%. The NPV for SCA and ESS cannot be calculated as SCA and ESS are only reported when an abnormality is detected. Performed By: #### G BPCR #### [facility] CLIA [id number] [facility] [place] [id number] [facility] [place] PERFORMANCE CHARACTERISTICS Note Normal [facility] Comment on above: Order Comment: Mora morris Type: BLOOD SPECIMENOrdering Facility: [facility] Address: [address] [facility] [place] [id number] Result Comment: ! Sex ! Accuracy: 99.4% [...] ! ! ! * As reported in [facility] database nstd37 [https://www.ncbi.nlm.nih.gov/dbvar/studies/nstd37/ ] # Estimated Sensitivity. Sensitivity estimated across the observed size distribution of each syndrome [per [facility] database nstd37] and across the range of fractions observed in routine clinical NIPT. Actual sensitivity can also be influenced by other factors such as the size of the event, total sequence counts, amplification bias, or sequence bias. ## Johnson gestation only. Performed By: #### G BPCR #### [facility] CLIA [id number] [address] [place] [address] POSITIVE PREDICTIVE VALUE N/A Normal [facility] Comment on above: Order Comment: Speci men Type: BLOOD SPECIMENOrdering Facility: [facility] Address: [address] [place] [address] Performed By: #### G BPCR #### [facility] CLIA [id number] [address] [place] [address] [place] Reference Lab Test Method Comment Normal [facility] Comment on above: Order Comment: Speci men Type: BLOOD SPECIMENOrdering Facility: [facility] Address: [address] [place] [address] Result Comment: See Notes Circulating cell-free DNA [...] 22. Performed By: #### G BPCR #### [facility] CLIA [id number] [address] [place] [address] [place] Service comment (Unsp spec) [Interp] Comment Normal [facility] Comment on above: Order Comment: Speci men Type: BLOOD SPECIMENOrdering Facility: [facility] Address: [address] [place], [place] [id number] Result Comment: See Notes [employer]. is a subsidiary of [employer], using the brand [employer]. This test was developed and its performance characteristics determined by [employer]. It has not been cleared or approved by the Food and Drug Administration. This laboratory is certified under the Clinical Laboratory Improvement Amendments (CLIA) as qualified to perform high complexity clinical laboratory testing and accredited by the [employer] ([employer]). If there is future clinical need for adding MaterniT GENOME testing, this specimen will be available until term. [facility] samples will not be retained beyond 60 days. [facility] patients will have to send a new sample for re-sequencing ([facility] Test Code: [id number]). Performed By: #### G BPCR #### [facility] CLIA [id number] [address] [place], [place] [id number] [place] Sex Dosage of chromosome-specific cfDNA Nom (cfDNA) Comment Normal [facility] Comment on above: Order Comment: Speci men Type: BLOOD SPECIMENOrdering Facility: [facility] Address: [address] [place] [address] Result Comment: Cons istent with Female Performed By: #### G BPCR #### [facility] CLIA [id number] [address] [place] [address] [facility] [place] Test performance information Kash (Unsp spec) Comment Normal [facility] Comment on above: Order Comment: Speci men Type: BLOOD SPECIMENOrdering Facility: [facility] Address: [address] [place] [address] Result Comment: The performance characteristics of the MaterniT(R) 21 PLUS laboratory-developed test (LDT) have been determined in a clinical validation study with women at increased risk for chromosomal aneuploidy.[1-4] Performed By: #### G BPCR #### [facility] CLIA [id number] [address] [place] [address] [place] Trisomy 13 risk Dosage of chromosome-specific cfDNA Ql (cfDNA) [Interp] Negative Normal [facility] Comment on above: Order Comment: Speci men Type: BLOOD SPECIMENOrdering Facility: [facility] Address: [address] [place] [address] Performed By: #### G BPCR #### [facility] CLIA [id number] [address] [place] [address] [place] Trisomy 18 risk Dosage of chromosome-specific cfDNA Ql (Plasma cell-free+WBC DNA) [Interp] Negative Normal [facility] Comment on above: Order Comment: Speci men Type: BLOOD SPECIMENOrdering Facility: [facility] Address: [address] [place] [address] Performed By: #### G BPCR #### [facility] CLIA [id number] [address] [place] [address] [place] Examination level ultrasound on 04-01-2024 Indication First trimester anatomic survey Impression The patient is referred for a first trimester anatomy scan including nuchal translucency measurement as clinically indicated. - Single, live, intrauterine . - Oklee rump length measurement is consistent with the [...] view: suboptimal 4-chamber view with color: suboptimal 5-ninjlg-ihbvntw view: suboptimal Abdominal cord insertion: normal Stomach: [...] Read By: Jeanine Acosta M.D. MATERNAL MEDICINE [facility] CBC W Auto Diff B[place]on 2024 Erythrocyte distribution width (RBC) [Ratio] 12.3 % Normal 11.5-15.0 [facility] Comment on above: Order Comment: Speci men Type: BLOOD SPECIMENOrdering Facility: [facility] Address: [address] [place] [address] Performed By: #### G BPCR #### [facility] CLIA [id number] [address] [place] [address] [place] Performed By: #### L [id number] ####[facility]IA [id number] [place] [address] [place] CBC W Auto Differential pane l (Bld)on 03-31-2024 Basophils (Bld) [#/Vol] 0.04 10*3/uL Normal <0.11 [facility] Comment on above: Order Comment: Speci men Type: BLOOD SPECIMENOrdering Facility: [facility] Address: [address] [place] [address] Performed By: #### G BPCR #### [facility] CLIA [id number] [address] [place] [address] [place] Basophils/100 WBC (Bld) 0.4 % Normal [facility] Comment on above: Order Comment: Speci men Type: BLOOD SPECIMENOrdering Facility: [facility] Address: [address] [place] [address] Performed By: #### G BPCR #### [facility] CLIA [id number] [address] [place] [address] [place] Differential cell count method Nom (Bld) Auto Normal [facility] Comment on above: Order Comment: Speci men Type: BLOOD SPECIMENOrdering Facility: [facility] Address: [address] [place] [address] Performed By: #### G BPCR #### [facility] CLIA [id number] [address] [place] [address] [place] Eosinophils (Bld) [#/Vol] 0.05 10*3/uL Normal <0.46 [facility] Comment on above: Order Comment: Speci men Type: BLOOD SPECIMENOrdering Facility: [facility] Address: [address] [place] [address] Performed By: #### G BPCR #### [facility] CLIA [id number] [address] [place] [address] [place] Eosinophils/100 WBC (Bld) 0.5 % Normal [facility] Comment on above: Order Comment: Speci men Type: BLOOD SPECIMENOrdering Facility: [facility] Address: [address] [place] [address] Performed By: #### G BPCR #### [facility] CLIA [id number] [address] [place] [address] [place] Hematocrit (Bld) [Volume fraction] 38.6 % Normal 36.0-46.0 [facility] Comment on above: Order Comment: Speci men Type: BLOOD SPECIMENOrdering Facility: [facility] Address: [address] [place] [address] Performed By: #### G BPCR #### [facility] CLIA [id number] [address] [place] [address] [place] Hemoglobin (Bld) [Mass/Vol] 12.9 g/dL Normal 11.5-15.5 [facility] Comment on above: Order Comment: Speci men Type: BLOOD SPECIMENOrdering Facility: [facility] Address: [address] [place] [address] Performed By: #### G BPCR #### [facility] CLIA [id number] [address] [place] [address] [place] Immature granulocytes (Bld) [#/Vol] 0.05 10*3/uL Normal <0.10 [facility] Comment on above: Order Comment: Speci men Type: BLOOD SPECIMENOrdering Facility: [facility] Address: [address] [place] [address] Performed By: #### G BPCR #### [facility] CLIA [id number] [address] [place] [address] [place] Immature granulocytes/100 WBC (Bld) 0.5 % Normal [facility] Comment on above: Order Comment: Speci men Type: BLOOD SPECIMENOrdering Facility: [facility] Address: [address] [place] [address] Performed By: #### G BPCR #### [facility] CLIA [id number] [address] [place] [address] [place] Lymphocytes (Bld) [#/Vol] 2.64 10*3/uL Normal 1.00-4.00 [facility] Comment on above: Order Comment: Speci men Type: BLOOD SPECIMENOrdering Facility: [facility] Address: [address] [place] [address] Performed By: #### G BPCR #### [facility] CLIA [id number] [address] [place] [address] [place] Lymphocytes/100 WBC (Bld) 27.0 % Normal [facility] Comment on above: Order Comment: Speci men Type: BLOOD SPECIMENOrdering Facility: [facility] Address: [address] [place] [address] Performed By: #### G BPCR #### [facility] CLIA [id number] [address] [place] [address] [place] MCH (RBC) [Entitic mass] 30.8 pg Normal 26.0-34.0 [facility] Comment on above: Order Comment: Speci men Type: BLOOD SPECIMENOrdering Facility: [facility] Address: [address] [place] [address] Performed By: #### G BPCR #### [facility] CLIA [id number] [address] [place] [address] [place] MCHC (RBC) [Mass/Vol] 33.4 g/dL Normal 30.5-36.0 [facility] Comment on above: Order Comment: Speci men Type: BLOOD SPECIMENOrdering Facility: [facility] Address: [address] [place] [address] Performed By: #### G BPCR #### [facility] CLIA [id number] [address] [place] [address] [place] MCV (RBC) [Entitic vol] 92.1 fL Normal 80.0-100.0 [facility] Comment on above: Order Comment: Speci men Type: BLOOD SPECIMENOrdering Facility: [facility] Address: [address] [place] [address] Performed By: #### G BPCR #### [facility] CLIA [id number] [address] [place] [address] [place] Monocytes (Bld) [#/Vol] 0.42 10*3/uL Normal <0.87 [facility] Comment on above: Order Comment: Speci men Type: BLOOD SPECIMENOrdering Facility: [facility] Address: [address] [place] [address] Performed By: #### G BPCR #### [facility] CLIA [id number] [address] [place] [address] [place] Monocytes/100 WBC (Bld) 4.3 % Normal [facility] Comment on above: Order Comment: Speci men Type: BLOOD SPECIMENOrdering Facility: [facility] Address: [address] [place] [address] Performed By: #### G BPCR #### [facility] CLIA [id number] [address] [place] [address] [place] Neutrophils (Bld) [#/Vol] 6.56 10*3/uL Normal 1.45-7.50 [facility] Comment on above: Order Comment: Speci men Type: BLOOD SPECIMENOrdering Facility: [facility] Address: [address] [place] [address] Performed By: #### G BPCR #### [facility] CLIA [id number] [address] [place] [address] [place] Neutrophils/100 WBC (Bld) 67.3 % Normal [facility] Comment on above: Order Comment: Speci men Type: BLOOD SPECIMENOrdering Facility: [facility] Address: [address] [place] [address] Performed By: #### G BPCR #### [facility] CLIA [id number] [address] [place] [address] [place] Nucleated RBC (Bld) [#/Vol] 10*3/uL Normal <0.01 [facility] Comment on above: Order Comment: Speci men Type: BLOOD SPECIMENOrdering Facility: [facility] Address: [address] [place] [address] Performed By: #### G BPCR #### [facility] CLIA [id number] [address] [place] [address] [place] Nucleated RBC/100 WBC (Bld) [Ratio] 0.0 /100 WBC Normal [facility] Comment on above: Order Comment: Speci men Type: BLOOD SPECIMENOrdering Facility: [facility] Address: [address] [place] [address] Performed By: #### G BPCR #### [facility] CLIA [id number] [address] [place] [address] [place] Platelet mean volume (Bld) [Entitic vol] 11.1 fL Normal 9.0-12.7 [facility] Comment on above: Order Comment: Speci men Type: BLOOD SPECIMENOrdering Facility: [facility] Address: [address] [place] [address] Performed By: #### G BPCR #### [facility] CLIA [id number] [address] [place] [address] [place] Platelets (Bld) [#/Vol] 241 10*3/uL Normal 150-400 [facility] Comment on above: Order Comment: Speci men Type: BLOOD SPECIMENOrdering Facility: [facility] Address: [address] [place] [address] Performed By: #### G BPCR #### [facility] CLIA [id number] [address] [place] [address] [place] RBC (Bld) [#/Vol] 4.19 10*6/uL Normal 3.90-5.20 [facility] Comment on above: Order Comment: Speci men Type: BLOOD SPECIMENOrdering Facility: [facility] Address: [address] [place] [address] Performed By: #### G BPCR #### [facility] CLIA [id number] [address] [place] [address] [place] WBC (Bld) [#/Vol] 9.76 10*3/uL Normal 3.70-11.00 [facility] Comment on above: Order Comment: Speci men Type: BLOOD SPECIMENOrdering Facility: [facility] Address: [address] [place] [address] Performed By: #### G BPCR #### [facility] CLIA [id number] [address] [place] [address] [place] Examination level ultrasound on 03-31-2024 Radiology Study observation (narrative) [facility] HBV surface Ag Ser Qlon 03-14 HBV surface Ag Ql (S) Negative Normal Negative [facility] Comment on above: Order Comment: Speci men Type: BLOOD SPECIMENOrdering Facility: [facility] Address: [address] [place] [address] Performed By: #### 5 195-3, 36063-1, 26184-1 ####[facility] [id number] [address] [place] HCV Ab Ser Qlon 03-31-2024 HCV Ab Ql (S) Negative Normal Negative [facility] Comment on above: Order Comment: Speci men Type: BLOOD SPECIMENOrdering Facility: [facility] Address: [address] [place] [address] Result Comment: The result suggests no evidence of active infection with Hepatitis C virus. Should recent infection be suspected, repeat testing may be considered 4-6 weeks after this draw. Performed By: #### 1 6128-1 ####[facility] [id number] [place] [address] [place] HGB ELECTROPHORESIS FOR EVAL (LAB ORDER)on 03-31-2024 Hemoglobin A (Bld) [Mass fraction] 97.0 % Normal 96.2-98.0 [facility] Comment on above: Order Comment: Speci men Type: BLOOD SPECIMENOrdering Facility: [facility] Address: [address] [place] [address] Performed By: #### L [id number], HGBELEV ####[facility] [id number] [place] [address] [place] Hemoglobin A2 (Bld) [Mass fraction] 2.7 % Normal 2.0-3.1 [facility] Comment on above: Order Comment: Speci men Type: BLOOD SPECIMENOrdering Facility: [facility] Address: [address] [place] [address] Performed By: #### L [id number], HGBELEV ####[facility] LAB[facility]IA [id number] [place] [address] [place] Hemoglobin F (Bld) [Mass fraction] 0.3 % Normal 0.0-0.9 [facility] Comment on above: Order Comment: Speci men Type: BLOOD SPECIMENOrdering Facility: [facility] Address: [address] [place] [address] Performed By: #### L [id number], HGBELEV ####[facility] LAB[facility]IA [id number] [place] [address] [place] Hemoglobin Unsp Elph (Bld) [Mass fraction] No abnormal hemoglobin identified. Normal No abnormal hemoglobin identified. [facility] Comment on above: Order Comment: Speci men Type: BLOOD SPECIMENOrdering Facility: [facility] Address: [address] [place] [address] Performed By: #### L [id number], HGBELEV ####[facility] LAB[facility]IA [id number] [place] [address] [place] HGB EVALUATION CASCADE INTER Carlos 03-31-2024 Hemoglobin pattern (Bld) [Interp] Reviewed by Vaishali Frazier M.D. Normal [facility] Comment on above: Order Comment: Speci men Type: BLOOD SPECIMENOrdering Facility: [facility] Address: [address] [place] [address] Performed By: #### L [id number], HGBELEV ####[facility] LAB[facility]IA [id number] [place] [address] [place] INTERPRETATION (HGB EVAL) Normal [facility] Comment on above: Order Comment: Speci men Type: BLOOD SPECIMENOrdering Facility: [facility] Address: [address] [place] [address] Result Comment: Hemo globins were analyzed by capillary electrophoresis and CBC red cell parameters were reviewed. No abnormal hemoglobin is identified. There is normal hemoglobin capillary electrophoresis pattern. Performed By: #### L [id number], HGBELEV ####[facility] LABIA [id number] [place] [address] [place] HIV 1+2 Ab IA Qlon 5 HIV 1 and 2 Ab IA.rapid Nom (S/P/Bld) Normal [facility] Comment on above: Order Comment: Speci men Type: BLOOD SPECIMENOrdering Facility: [facility] Address: [address] [place] [address] Result Comment: Test not indicated. Performed By: #### 5 195-3, 64294-6, 47274-1 ####[facility]IA [id number] [place] [address] [place] HIV 1+2 Ab+HIV1 p24 Ag IA Ql Non-Reactive Normal Nonreactive [facility] Comment on above: Order Comment: Speci men Type: BLOOD SPECIMENOrdering Facility: [facility] Address: [address] [place] [address] Performed By: #### 5 195-3, 69788-7, 45538-8 ####[facility] LAB[facility]IA [id number] [place] [address] [place] HIV immunoassay testing algorithm interpretation (S/P/Bld) [Interp] Normal [facility] Comment on above: Order Comment: Speci men Type: BLOOD SPECIMENOrdering Facility: [facility] Address: [address] [place] [address] Result Comment: No e vidence of HIV-1 or HIV-2 infection. Should recent infection be suspected, repeat testing may be considered 2-3 weeks after this draw. [place]acy Rev. Code 3701.243(E): This information has been [...] or diagnoses. Performed By: #### 5 195-3, 56260-0, 49596-8 ####[facility] LAB[facility]IA [id number] [place] [address] [place] HbA1c (Bld)on 03-31-2024 Average glucose Estimated from glycated hemoglobin (Bld) [Mass/Vol] 88 mg/dL Normal [facility] Comment on above: Order Comment: Speci men Type: BLOOD SPECIMENOrdering Facility: [facility] Address: [address] [place] [address] Result Comment: eAG: (Estimated average glucose) is a calculated value from HgbA1c and is dental detail representative of the average blood glucose level in the last 2-3 month period. Performed By: #### G BPCR #### [facility] CLIA [id number] [address] [place] [address] [place] HbA1c (Bld) [Mass fraction] 4.7 % Normal 4.3-5.6 [facility] Comment on above: Order Comment: Speci men Type: BLOOD SPECIMENOrdering Facility: [facility] Address: [address] [place] [address] Result Comment: Amer [place] Diabetes Association guidelines indicate that patients with HgbA1c in the range 5.7-6.4% are at increased risk for development of diabetes, and intervention by lifestyle modification may be beneficial. HgbA1c greater or equal to 6.5% is considered diagnostic of diabetes. Performed By: #### G BPCR #### [facility] CLIA [id number] [address] [place] [address] [place] RBC PARAMETERS FOR HB IDon 0 - Hematocrit (Bld) [Volume fraction] 37.9 % Normal 36.0-46.0 [facility] Comment on above: Order Comment: Mora morris Type: BLOOD SPECIMENOrdering Facility: [facility] Address: [address] [place] [address] Performed By: #### L [id number] ####[facility]IA [id number] [place] [address] [place] Hemoglobin (Bld) [Mass/Vol] 12.7 g/dL Normal 11.5-15.5 [facility] Comment on above: Order Comment: Mora morris Type: BLOOD SPECIMENOrdering Facility: [facility] Address: [address] [place] [address] Performed By: #### L [id number] ####[facility] LABCLIA [id number] [place] [address] [place] MCH (RBC) [Entitic mass] 31.1 pg Normal 26.0-34.0 [facility] Comment on above: Order Comment: Carmeni alexandra Type: BLOOD SPECIMENOrdering Facility: [facility] Address: [address] [place] [address] Performed By: #### L [id number] ####[facility] LABCLIA [id number] [place] [address] [place] MCHC (RBC) [Mass/Vol] 33.5 g/dL Normal 30.5-36.0 [facility] Comment on above: Order Comment: Speci men Type: BLOOD SPECIMENOrdering Facility: [facility] Address: [address] [place] [address] Performed By: #### L [id number] ####[facility]CLIA [id number] [place] [address] [place] MCV (RBC) [Entitic vol] 92.9 fL Normal 80.0-100.0 [facility] Comment on above: Order Comment: Speci men Type: BLOOD SPECIMENOrdering Facility: [facility] Address: [address] [place] [address] Performed By: #### L [id number] ####[facility] LABCLIA [id number] [place] [address] [place] RBC (Bld) [#/Vol] 4.08 10*6/uL Normal 3.90-5.20 [facility] Comment on above: Order Comment: Speci men Type: BLOOD SPECIMENOrdering Facility: [facility] Address: [address] [place] [address] Performed By: #### L [id number] ####[facility] LABCLIA [id number] [place] [address] [place] RUBELLA IGG ANTIBODYon 03-31 RUBELLA IGG AB, QUAL Positive Normal Positive [facility] Comment on above: Order Comment: Speci men Type: BLOOD SPECIMENOrdering Facility: [facility] Address: [address] [place] [address] Result Comment: The result suggests recent or past exposure to Rubella virus or history of Rubella vaccination. Positive result may also be seen due to presence of passively-transferred antibodies. Please correlate with patient's history. Performed By: #### G BPCR #### [facility] CLIA [id number] [address] [place] [address] [place] Reagin and Treponema pallidu m IgG and IgM [Interp]on 03-31-2024 T. pallidum IgG+IgM IA Ql (S) Non-Reactive Normal Nonreactive [facility] Comment on above: Order Comment: Speci men Type: BLOOD SPECIMENOrdering Facility: [facility] Address: [address] [place] [address] Performed By: #### 5 195-3, 26631-0, 39266-0 ####[facility] LABCLIA [id number] [place] [address] [place] Reagin+T pallidum IgG+IgM Se rPl-Impon 03-31-2024 Reagin and Treponema pallidum IgG and IgM [Interp] Cannot exclude recent Treponemal infection if specimen collected within 7-10 days after appearance of suspect lesions or 2-3 weeks after an exposure. Clinical correlation is required. Normal [facility] Comment on above: Order Comment: Speci men Type: BLOOD SPECIMENOrdering Facility: [facility] Address: [address] [place] [address] Performed By: #### 5 195-3, 71337-5, 33283-6 ####[facility] LABCLIA [id number] [place] [address] [place] TYPE + SCREEN PRENATALon ABO A Normal [facility] Comment on above: Order Comment: Speci men Type: BLOOD SPECIMENOrdering Facility: [facility] Address: [address] [place] [address] Performed By: #### T SPN ####[facility] BLOOD BANKCLIA [id number] [place] [address] [place] Rh Nom (Bld) Negative Normal [facility] Comment on above: Order Comment: Speci men Type: BLOOD SPECIMENOrdering Facility: [facility] Address: [address] [place] [address] Performed By: #### T SPN ####[facility] MA[facility] BLOOD BANKCLIA [id number] [place] [address] [place] TYPE AND SCREEN EXPIRATION 04/03/2024 23:59 Normal [facility] Comment on above: Order Comment: Speci men Type: BLOOD SPECIMENOrdering Facility: [facility] Address: [address] [address] Performed By: #### T SPN ####[facility] BLOOD BANKCLIA [id number] SATHISH JOURDANTONDESK [address] OF [facility] CNPNon 03-03-2024 CNPN Telephone (OGFVWE) -- LOUANN CLEMENTS ([id number]) 1995 F Date Time Provider Department 03/03/24 [...] MA - 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 [4357] Cmt: PRAF Prescriptions as of 03/03/2024 - [...] Status:Closed by ELVIA GILMORE on 03/03/24 Normal [facility] BACTERIAL VAGINOSIS NAATon 0 03-02-2024 Lactobacillus crispatus+gasseri+deloris enii + Gardnerella vaginalis + Atopobium vaginae rRNA JOSE+probe Ql (Vag fld) Not detected Normal Not detected [facility] Comment on above: Order Comment: Speci men Type: SWABOrdering Facility: [facility] Address: [address] [place] [address] Performed By: #### C VTV, BVAMP ####[facility] LABCLIA [id number] [place] [address] [place] Bacteria Ur Culton Bacteria identified Cx Nom (U) ORGANISM ID: 1 <10,000 CFU/ml Normal urogenital camila Normal [facility] Comment on above: Performed By: #### 6 30-4 #### [facility] CLIA [id number] [address] [place] [address] [place] C. trachomatis+N. gonorrhoea e DNA JOSE+probe Ql (Unsp spec)on 03-02-2024 C. trachomatis rRNA JOSE+probe Ql (Unsp spec) Not detected Normal Not detected [facility] Comment on above: Order Comment: Speci men Type: SWABOrdering Facility: [facility] Address: [address] [place] [address] Performed By: #### G BPCR #### [facility] CLIA [id number] [address] [place] [address] [place] N. gonorrhoeae rRNA JOSE+probe Ql (Unsp spec) Not detected Normal Not detected [facility] Comment on above: Order Comment: Speci men Type: SWABOrdering Facility: [facility] Address: [address] [place] [address] Performed By: #### G BPCR #### [facility] CLIA [id number] [address] [place] [address] [place] NORMAN/TRICHOMONAS NAATon 0 03-02-2024 C. glabrata RNA JOSE+probe Ql (Vag fld) Not detected Normal Not detected [facility] Comment on above: Order Comment: Speci men Type: SWABOrdering Facility: [facility] Address: [address] [place] [address] Performed By: #### G BPCR #### [facility] CLIA [id number] [address] [place] [address] [place] Norman sp DNA JOSE+probe Ql (Vag fld) Not detected Normal Not detected [facility] Comment on above: Order Comment: Speci men Type: SWABOrdering Facility: [facility] Address: [address] [place] [address] Result Comment: The Norman species group target includes C. albicans, C. tropicalis, C. parapsilosis, and C. dubliniensis. Performed By: #### G BPCR #### [facility] CLIA [id number] [address] [place] [address] [place] T. 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 Louann is a 28 year old who presents for an annual gynecologic exam. Reports recent pelvic pain with intercourse. [place] like her partner hit something and then [...] L1 SAB0 IAB0 Ectopic0 Multiple0 Live Births1 Telemetry Technician History LMP: 10/22/2023, Having periods Age at Menarche: Age at First : Age at Menopause: Telemetry Technician History Comments: Sexual Activity: Yes; Male Contraception: [...] discussed with the Patient or Patient's Authorized Dean Of Faculty. As applicable, any other physician, advance practice provider, medical student, or other health professional student that will be observing or involved in the sensitive examination for educational or training purposes was discussed with the Patient or Authorized Dean Of Faculty. The Patient or Authorized Dean Of Faculty has agreed to proceed with the sensitive [...] external genitalia normal, normal Bartholin's glands, urethra, [place]'s glands, no vulvar lesions, no cervical lesions, [...] that ca (more content not included)... Normal [facility] Echo Completeon 09-18-2023 Echo Complete [facility] [address] [place] [address] Echo Complete 09/18/23 1320 MR#: [id number] Acct: [id number] Name: LOUANN CLEMENTS Rep #: [id number] : 1995 28 From: Carlo Mao MD Attending Dr: Dr. Carlo Mao MD Status: ELIS MEZA Ordering Dr: Carlo Mao MD Date: 09/18/23 Location: [facility] Sex: F C Admitted: Reason For [...] Date Dictated: 09/18/231319 Date Transcribed: 09/18/23 1444 Test Engine Evaluator: Signed Normal [facility] 12 Lead EKG performed by [facility] on 08-28-2023 12 Lead EKG performed by [facility] [address] [place] [address] 12 Lead EKG performed by [facility] 08/28/23 1321 MR#: [id number] Acct: [id number] Name: LOUANN CLEMENTS Rep #: [id number] : 1995 28 From: Carlo Mao MD Attending Dr: Dr. Carlo Mao MD Status: DEP A MB Ordering Dr: Carlo Mao MD Date: 08/28/23 [place] [facility] Sex: F C Admitted: BMS/12 Lead EKG performed by [facility] ECG Report Interpretation Sinus Rhythm - Negative precordial T-waves -Normal for age. PROBABLY NORMAL FOR AGEElectronically signed on 09/02/2023 at 13:24 by Carlo Mao [employer] Version 8610 09/02/231324 Date Carlo Mao MD CC: Dr. Sera Scott MD Date Dictated: 08/28/231320 Date Transcribed: 08/28/231320 Test Engine Evaluator: [place] Signed Normal [facility] Cardiology Visit Reporton Cardiology Visit Report [facility] [address] [place] [address] OFFICE VISIT Date of Service: 08/28/23 MR#: [id number] Acct: [id number] Name: LOUANN CLEMENTS Rep #: [id number] : 1995 Provider: Dr. 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 Normal [facility] Emergency Department Summary on 07-21-2023 Emergency Department Summary [facility] Medical Records Department [address] [place] [address] Emergency Department Summary 07/21/23 MR#: [id number] Acct: [id number] Name: LOUANN CLEMENTS Rep #: [id number] : 1995 28 From: Carissa Rojas DO [...] complaints or concerns reported at this time. [facility] Medical History Pars defect of lumbar spine [...] no sensory deficits noted Neuro Narrative: Normal sjfcsk-yb-dbhb, no truncal ataxia, normal coordination Sensorium / [...] a central process. Patient is a negative Ewing-Hallpike maneuver her symptoms are quite mild at [...] CT imaging (more content not included)... Normal [facility] CBC panel Auto (Bld)on 06-25 Erythrocyte distribution width (RBC) [Ratio] 12.1 % 11.5 - 15.0 % [facility] Hematocrit (Bld) [Volume fraction] 40.5 % 36.0 - 46.0 % [facility] Hemoglobin (Bld) [Mass/Vol] 13.1 g/dL 11.5 - 15.5 g/dL [facility] Interpretation and review of laboratory results Normal [facility] MCH (RBC) [Entitic mass] 30.3 pg 26.0 - 34.0 pg [facility] MCHC (RBC) [Mass/Vol] 32.3 g/dL 30.5 - 36.0 g/dL [facility] MCV (RBC) [Entitic vol] 93.8 fL 80.0 - 100.0 fL [facility] Nucleated RBC (Bld) [#/Vol] NINF [facility] Platelet mean volume (Bld) [Entitic vol] 11.6 fL 9.0 - 12.7 fL [facility] Platelets (Bld) [#/Vol] 245 10*3/uL [facility] RBC (Bld) [#/Vol] 4.32 10*6/uL 3.90 - 5.2 0 m/uL [facility] WBC (Bld) [#/Vol] 4.77 10*3/uL [facility] Comprehensive metabolic 2000 panelon 06-26-2023 Albumin [Mass/Vol] 4.4 g/dL 3.9 - 4.9 g/dL [facility] ALP [Catalytic activity/Vol] 57 U/L 34 - 123 U/L [facility] ALT [Catalytic activity/Vol] 21 U/L 7 - 38 U/L [facility] Anion gap [Moles/Vol] 8 mmol/L Low 9 - 18 mmol/L [facility] AST [Catalytic activity/Vol] 26 U/L 13 - 35 U/L [facility] Bilirubin [Mass/Vol] 0.5 mg/dL 0.2 - 1 .3 mg/dL [facility] Calcium [Mass/Vol] 9.5 mg/dL 8.5 - 10. 2 mg/dL [facility] Chloride [Moles/Vol] 104 mmol/L 97 - 10 5 mmol/L [facility] CO2 [Moles/Vol] 25 mmol/L 22 - 30 mmol/L [facility] Creatinine [Mass/Vol] 0.86 mg/dL 0.58 - 0.96 mg/dL [facility] GFR/1.73 sq M.predicted among non-blacks MDRD (S/P/Bld) [Vol rate/Area] 96 mL/min/{1.73_m2} - PINF [facility] Comment on above: Estimated Glomerular Filtration Rate [...] [Mass/Vol] 88 mg/dL 74 - 99 mg/dL [facility] Comment on above: The [place] Diabete s Association (ADA) provides guidance for [...] Standards of Medical Care in Diabetes 2016, [place] Diabetes Association. Diabetes Care. 2016.39(Suppl 1). Interpretation and review of laboratory results Abnormal [facility] Potassium [Moles/Vol] 3.9 mmol/L 3.7 - 5.1 mmol/L [facility] Protein [Mass/Vol] 6.9 g/dL 6.3 - 8.0 g/dL [facility] Sodium [Moles/Vol] 137 mmol/L 136 - 144 mmol/L [facility] Urea nitrogen [Mass/Vol] 14 mg/dL 7 - 21 mg/dL [facility] LIPASEon 06-26-2023 Lipase [Catalytic activity/Vol] 28 U/L 16 - 61 U/L [facility] Lipase [Catalytic activity/V ol]on 06-26-2023 Interpretation and review of laboratory results Normal [facility] No Panel Informationon 06-25 [facility] US ABD RIGHT UPPER QUADRANTo n 06-26-2023 [...] sonographic appearance of the right upper quadrant. Test Engine Evaluator: CAMRYN Transcribe Date/Time: Jun 26 2023 2:15P Dictated by : KAREN HANKINS MD This examination was interpreted and the report reviewed and electronically signed by: KAREN HANKINS MD on Jun 26 2023 2:17PM EST [id number] Normal [facility] US Abdomen RUQon 06-26-2023 IMPRESSION: Normal sonographic appearance of the right upper quadrant. Test Engine Evaluator: [facility] Transcribe Date/Time: Jun 26 2023 [...] Ascites: None. LOD RADIOLOGY SYNGO Provider, [facility] - 06/26/2023 * * *Final Report* * [...] sonographic appearance of the right upper quadrant. Test Engine Evaluator: [facility] Transcribe Date/Time: Jun 26 2023 2:15P Dictated by : KAREN HANKINS MD This examination was interpreted and the report reviewed and electronically signed by: KAREN HANKINS MD on Jun 26 2023 2:17PM EST [facility] Radiology Study observation (narrative) [facility] US Abdomen RUQOrdered By: Juli pena Provider on 06-26-2023 [facility] Lumbar Spine 2 or 3 Viewson 02-19-2023 Lumbar Spine 2 or 3 Views [facility] [address] [place] [address] Lumbar Spine 2 or 3 Views MR#: [id number] Acct: [id number] Name: LOUANN CLEMENTS Rep #: [id number] : 1995 F 27 From: Catherine Wills MD PCP: Care Physician,No Primary Status: DEP AMB Study: Lumbar Spine 2 or 3 Views Date of Exam: Exam# [id number] Ordering Dr: Bert Almanza DO [id number] INDICATION: pain -- obliques only EXAMINATION/TECHNIQUE: X-RAY [...] Bert Almanza DO; No Primary Care Physician Test Engine Evaluator: Signed Normal [facility] Orthopedic Visit Reporton Orthopedic Visit Report [facility] [address] [place] [address] [address] [place] [address] OFFICE VISIT Date of Service: 02/19/23 MR#: [id number] Acct: [id number] Name: LOUANN CLEMENTS Rep #: [id number] : 1995 Provider: Dr. Bert high DO Age/Sex: 27/F Location[place] [facility] Status: Signed Intake Vital Signs 01/10/23 13:22 [...] Crawford Signature: Date (if applicable) CC: Normal [facility] Spine Lumbar (Routine)on Spine Lumbar (Routine) [facility] Imaging Services [address] [place] [address] Spine Lumbar (Routine) MR#: [id number] Acct: [id number] Name: LOUANN CLEMENTS FANTASMA Rep #: [id number] : 1995 F 27 From: Gerardo Hoskins MD PCP: Care Physician,No Primary Status: REG CLI Study: Spine Lumbar (Routine) Date of Exam: 02/16/23 Exam# [id number] Ordering Dr: Bert Almanza DO [id number] STUDY: MRI LUMBAR SPINE WITHOUT CONTRAST REASON [...] Bert Almanza, DO; No Primary Care Physician Test Engine Evaluator: Signed Normal [facility] Lumbar Spine 2 or 3 Viewson 01-10-2023 Lumbar Spine 2 or 3 Views [facility] [address] [place] [address] Lumbar Spine 2 or 3 Views MR#: [id number] Acct: [id number] Name: LOUANN CLEMENTS Rep #: [id number] : 1995 F 27 From: Armani Pendleton MD PCP: Dr. Sera Scott MD Status: DEP AMB Study: Lumbar Spine 2 or 3 Views Date of Exam: Exam# [id number] Ordering Dr: Bert Almanza DO [id number] STUDY: X-RAY - LUMBAR SPINE REASON FOR [...] Sera Scott MD; Dr. Bert Almanza DO Test Engine Evaluator: Signed Normal [facility] Orthopedic Visit Reporton Orthopedic Visit Report [facility] [address] [place] [address] [address] [place] [address] OFFICE VISIT Date of Service: 01/10/23 MR#: [id number] Acct: [id number] Name: LOUANN CLEMENTS Rep #: [id number] : 1995 Provider: Dr. Bert high DO Age/Sex: 27/F Location: [facility] Status: Signed with Addenda ADDENDUM by TEDDY [...] MRI s (more content not included)... Normal [facility] No Panel Informationon 08-08 [facility] Absolute lymphocyte countOrd ered By: Dr. Lambert on 07-25-2022 Lymphocytes Auto (Unsp spec) [#/Vol] 3.98 10*3/uL 0.83-4.51 [facility] Basophil percentageOrdered B y: Dr. Lambert on 07-25-2022 Basophil percentage 0 SEEN /hpf 0-5 [facility] Basophils/100 WBC (Bld) 0.5 % 0-1 [facility] Chloride [Moles/Vol] 109 mmol/L 98-107 [facility] Eosinophils/100 WBC (Bld) 1.5 % 0-5 [facility] Glucose [Mass/Vol] 92 mg/dL 74-106 [facility] Neutrophils (Bld) [#/Vol] 2.8 10*3/uL 2.0-7.7 [facility] Neutrophils/100 WBC (Bld) 37.8 % 47-70 [facility] Potassium [Moles/Vol] 3.8 mmol/L 3.5-5.1 [facility] Sodium [Moles/Vol] 140 mmol/L 136-145 [facility] WBC (Bld) [#/Vol] 7.4 10*3/uL 4.4-11.0 [facility] Bilirubin Test strip Ql (U)O rdered By: Dr. Lambert on 07-25-2022 Bilirubin Ql (U) Negative Negative [facility] Blood erythrocytes count (nu mber/volume)Ordered By: Dr. Lambert on 07-25-2022 RBC (Bld) [#/Vol] 3.98 10*6/uL 4.2-5.4 [facility] Blood hemoglobin measurement (mass/volume)Ordered By: Dr. Lambert on 07-25-2022 Hemoglobin (Bld) [Mass/Vol] 12.3 g/dL 12.0-15.0 [facility] Blood lymphocytes/100 leukoc ytesOrdered By: Dr. Lambert on 07-25-2022 Lymphocytes/100 WBC (Bld) 53.9 % 19-41 [facility] Blood monocytes/100 leukocyt esOrdered By: Dr. Lambert on 07-25-2022 Monocytes/100 WBC (Bld) 6.0 % 0-10 [facility] Blood platelet mean volumeOr dered By: Dr. Lambert on 07-25-2022 Platelet mean volume (Bld) [Entitic vol] 11.3 fL 6.2-12.0 [facility] Determination of erythrocyte mean corpuscular volume (MCV)Ordered By: Dr. Lambert on 07-25-2022 MCV (RBC) [Entitic vol] 93.0 fL 81-99 [facility] Hematocrit Auto (Bld) [Volum e fraction]Ordered By: Dr. Lambert on 07-25-2022 Hematocrit (Bld) [Volume fraction] 37.0 % 37-47 [facility] Ketones Test strip Ql (U)Ord ered By: Dr. Lambert on 07-25-2022 Ketones Ql (U) Negative Negative [facility] Laboratory - Chemistry and C hemistry - challengeOrdered By: Dr. Lambert on 07-25-2022 CO2 [Moles/Vol] 26.0 mmol/L 21.0-32.0 [facility] HCG ( test) Ql (U) Negative [facility] Comment on above: Very dilute urine sp ecimens, as indicated by a low specificgravity, may not contain dental detail representative levels of hCG. If is still suspected, a first morning urinespecimen should be collected 48 hours later and tested. Urea nitrogen/Creatinine [Mass ratio] 9.7 mg/mg 10-20 [facility] Laboratory - Hematology and Cell countsOrdered By: Dr. Lambert on 07-25-2022 Erythrocyte distribution width (RBC) [Entitic vol] 41.2 fL 35.1-43.9 [facility] Erythrocyte distribution width (RBC) [Ratio] 11.9 % 11.6-14.6 [facility] Immature granulocytes/100 WBC (Bld) 0.300 % 0.0-0.9 [facility] [facility] Comment on above: IG% - Immature Granu locytes (promyelocytes, myelocytes and metamyelocytes) > 1% indicates that a LEFT SHIFT is Present. MCH (RBC) [Entitic mass] 30.9 pg 27.0-32.0 [facility] Nucleated RBC/100 WBC (Bld) [Ratio] 0 % 0-5 [facility] MCHC Auto (RBC) [Mass/Vol]Or dered By: Dr. Lambert on 07-25-2022 MCHC (RBC) [Mass/Vol] 33.2 g/dL 32-36 [facility] Mucus LM Ql (Urine sed)Order ed By: Dr. Lambert on 07-25-2022 Mucus Ql (Urine sed) 0 SEEN /hpf [facility] Nitrite Test strip Ql (U)Ord ered By: Dr. Lambert on 07-25-2022 Nitrite Ql (U) Negative Negative [facility] No Panel InformationOrdered By: Dr. Lambert on 07-25-2022 Estimated Creatinine Clearance Calc 85.71 ml/min [facility] Estimated GFR (MDRD) Amer 108 mL/min >60 [facility] Comment on above: GFR Calc Estimated GFR (MDRD) Non-Af Amer 89 mL/min >60 [facility] Comment on above: Non- GFR Calc Platelets bldOrdered By: Dr. Lambert on 07-25-2022 Platelets (Bld) [#/Vol] 247 10*3/uL 150-450 [facility] Protein Test strip Ql (U)Ord ered By: Dr. Lambert on 07-25-2022 Protein Ql (U) Negative Negative [facility] Serum or plasma calcium peña urement (mass/volume)Ordered By: Dr. Lambert on 07-25-2022 Calcium [Mass/Vol] 8.9 mg/dL 8.5-10.1 [facility] Serum or plasma creatinine m easurement (mass/volume)Ordered By: Dr. Lambert on 07-25-2022 Creatinine [Mass/Vol] 0.83 mg/dL 0.55-1.02 [facility] Comment on above: The validity of the calculated GFR & GFRAA in patients over 70 years has not been determined. Clinical correlation is essential. Serum or plasma urea nitroge n measurement (mass/volume)Ordered By: Dr. Lambert on 07-25-2022 Urea nitrogen [Mass/Vol] 8 mg/dL 7-18 [facility] Squamous epithelial cells de tection in urine sediment by light microscopyOrdered By: Dr. Lambert on 07-25-2022 Epithelial cells.squamous LM Ql (Urine sed) 0-5 SEEN /hpf 5-10 [facility] Thin prep Papanicolaou smear with manual screeningOrdered By: Dr. Lambert on 07-25-2022 Thin prep Papanicolaou smear with manual screening 5 5-15 [facility] Urine blood detectionOrdered By: Dr. Lambert on 07-25-2022 RBC Ql (U) Negative Negative [facility] RBC Ql (U) 0 SEEN /hpf 0-5 [facility] Urine clarityOrdered By: Dr. Lambert on 07-25-2022 Clarity (U) Clear Clear [facility] Urine color determinationOrd ered By: Dr. Lambert on 07-25-2022 Color (U) Yellow Yellow [facility] Urine glucose detectionOrder ed By: Dr. Lambert on 07-25-2022 Glucose Ql (U) Normal mg/dl Normal [facility] Urine leukocyte esterase det ection by dipstickOrdered By: Dr. Lambert on 07-25-2022 Leukocyte esterase Test strip Ql (U) 25 /ul Negative [facility] Urine pHOrdered By: Dr. Ashleigh butler on 07-25-2022 pH (U) 6.5 [pH] 5.0 - 8.0 [facility] Urine sediment bacteria coun t by microscopy (number/high power field)Ordered By: Dr. Lambert on 07-25-2022 Bacteria LM.HPF (Urine sed) [#/Area] 0 /[HPF] None Seen [facility] Urine specific gravity measu rementOrdered By: Dr. Lambert on 07-25-2022 Specific gravity (U) [Rel density] 1.010 1.002-1.030 [facility] Urobilinogen Auto test strip Ql (U)Ordered By: Dr. Lambert on 07-25-2022 Urobilinogen Ql (U) Normal mg/dl Normal [facility] XR WRIST GENERAL 3V PA/LAT/O BL RIGHTon 12-21-2021 [facility] XR Wrist - right PA and Late ral and Obliqueon 12-21-2021 IMPRESSION: No acute abnormality. Test Engine Evaluator: [facility] Transcribe Date/Time: Dec 21 2021 4:43P Dictated [...] Ulnar minus variant. DIVISION OF RADIOLOGY Provider, [facility] - 12/21/2021 * * *Final Report* * [...] minus variant. IMPRESSION IMPRESSION: No acute abnormality. Test Engine Evaluator[facility] Transcribe Date/Time: Dec 21 2021 4:43P Dictated by : AMENA SETH MD This examination was interpreted and the report reviewed and electronically signed by: AMENA SETH MD on Dec 21 2021 4:43PM EST [facility] Radiology Study observation (narrative) [facility] XR Wrist - right PA and Late ral and ObliqueOrdered By: [facility] Provider on 12-21-2021 [facility] STREP A MOLECULAR (POC)on Procedural Control Valid [facility] Strep A (POCT) Negative Negative [facility] STREP A MOLECULAR (POC)on Procedural Control Valid [facility] Strep A (POCT) Negative Negative [facility] CR Spine Lumbosacral 4+ View son 12-12-2017 CR Spine Lumbosacral 4+ Views Patient Name: LOUANN CLEMENTS Diagnostic Radiology Exam Date/Time 12/12/2017 10:05:14 EDT Exam CR Spine Lumbosacral 4+ Views Ordering Physician MD JONAS ADAM Accession Number [id number] CPT4 Codes 96693 () Reason For Exam spondylolysis Report Clinical [...] Transcribed Date and Time: 12/12/2017 10:22 Normal [facility] ED Provider Noteon 8 Protein mass conc Triage Chief Complai nt:Leg Pain (left leg pain. Patient heard popping sound and unable to ambulated.Transfered from [facility].)[place]:Louann Clements is a 22 y.o. female who [...] worse than ever before. She initiallypresented to [facility] where labs and xrays were obtained. 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 She denies fevers, SOB, chest pain, abdominalpain, [...] dictating provider for clarification.Frances Napier MD12/12/17 1021 [facility] Protein mass conc [facility] EMERGENCY DEPTeMERGENCY dEPARTMENT eNCOUnterPt Name: Louann ClementsMRN: [id number] of evaluation: 12/12/2017Provider: Franco Sharma [facility] COMPLAINTChief ComplaintPatient presents with? Leg Pain left leg pain. Patient heard popping sound and unable to ambulated.Transfered from [facility].HISTORY OF PRESENT ILLNESS(Location/Symptom, Timing/Onset,Context/Setti ng, Quality, Duration, [...] Temp Temp Source Pulse Resp SpO2 Height Gpbnja445/67 98.1 ?F (36.7 ?C) Oral 53 16 [...] noneLABS:Labs ReviewedPREGNANCY, URINE Narrative: Test Performed by [employer], [facility] [address] [place], [place] [address]FOCRFMI-DOS Narrative: Test Performed by [employer], [facility] [address] [place], [place] [address]KMXW AND SCREEN Narrative: Test Performed by [employer], [facility] [address] [place], [place] [address]Owe other labs were withinnormal range or not [...] within normallimits. Inverted T-wave in lead 3. CO interval QRS interval within normallimits. [SH]ED Course User Index[SH] Franco Sharma [facility] TIMETotal Critical Care time was 0 minutes, excluding separately reportableprocedures.There was a high probability of clinically significant/life threateningdeterioration in the patient's condition whichrequired my urgent intervention.CONSULTS:None PROCEDURES:Unless otherwise notedbelow, noneProceduresFINAL IMPRESSION1. Acute bilateral low back pain with right-sided sciaticaDISPOSITION/PLANDI SPOSITION Decision To Discharge 12/12/2017 02:33:02 PMPATIENT REFERRED TO:The Emergency DepartmentGo toIf symptoms worsenyour doctorCal[address] [phone] HARGE MEDICATIONS:Discharge Medication List as of 12/12/2017 [...] signed)Emergency Medicine ProviderSterry Sharma MD12/16/17 1200 Normal [facility] HCG,Urine Qualon 12-12-2017 HCG.beta subunit ( test) Ql (U) Negative Normal Negative [facility] Comment on above: Result Comment: Preg elton is the most common reason for HCG in urine, althoughchoriocarcinoma, hydatidiform mole, and certain nontropho-blastic malignancies also result in detectable urinary HCGlevels. Sensitivity = 20mIU/mL. Performed By: #### H CGUR ####[facility] [place] [address] MRI Spine Lumbar w/o Contras ton 12-12-2017 MRI Spine Lumbar w/o Contrast Patient Name: LOUANN CLEMENTS MRI Exam Date/Time 12/12/2017 12:28:35 EDT Exam MRI Spine Lumbar w/o Contrast Ordering Physician MD SUMI, VINOD Accession Number [id number] CPT4 Codes 14118 () Reason For Exam SCIATICA, AND/OR RADICULOPATHY, [...] Transcribed Date and Time: 12/12/2017 1:29 Normal [facility] Prothrombin Timeon 8 INR Coag RelTime (PPP) 1.0 Normal 0.9-1.1 [facility] Comment on above: Result Comment: Demetrius [...] Myocardial Infarction Performed By: #### P T ####[employer] [place] [address] Prothrombin time (PT) Coag time (PPP) 10.3 s Normal 9.0-12.0 [employer] Comment on above: Result Comment: . Performed By: #### P T ####[employer] [address] [employer] [address] TS GELon 12-12-2017 TS GEL ABO Group: A Rh, Gel: NEG Antibody Screen Gel: NEG Normal [facility] Comment on above: Performed By: #### T SGL ####[employer] [place] [address] EMERGENCY REPORTon 8 EMERGENCY REPORT [facility] EMERGENCY ROOM REPORT NAME ACCOUNT SEX AGE ADMIT DISCHARGE PT MED. RECORD# NUMBER DATE DATE TYPE DOMINICK [id number] F 08/12/17 08/12/17 3 LOUANN Ravi [id number] ROOM: ER DATE OF : 1995 DICTATING PHYSICIAN: Ozzie Miranda CHIEF COMPLAINT: Passed out. HISTORY OF PRESENT ILLNESS: The patient works at a f[employer]. She was brought here by [employer] after she apparently passed out at work. [...] interviewed by the ambulance personnel at the f[employer] or being transferred to the squad. Since [...] can remember. [facility] and [facility] state that on their arrival to the [facility] she was on the floor but was [...] Ozzie Miranda MD 08/12/17 14:56 JOB #: [id number] Transcribed By: brandon 08/12/17 15:45 Electronically signed by: JOHN Miranda M.D. 08/21/17 07:11 Page 2 of 2 LOUANN CLEMENTS Emergency Room Report Normal [facility] APTTon 08-12-2017 aPTT 23.9 s Normal 21.6 - 35.4 [facility] Comment on above: Performed By: #### 2 41830 ####[facility],[address] [place] [address] BNP (B-TYPE NATRIURETIC PEPT RAMONITA)on 08-12-2017 BNP 24 pg/mL Normal 1 - 100 [facility] Comment on above: Performed By: #### 2 01243 ####[facility],[address] [place] [address] C-REACTIVE PROTEINon 018 C reactive protein (CRP) 0.30 mg/dl Normal 0.00 - 1.00 [facility] Comment on above: Performed By: #### 2 91333 ####[facility],[address] [place] [address] CBCon 08-12-2017 Basophils Auto #/vol (Bld) 0.10 x10EE3/UL Normal 0.00 - 0.10 [facility] Comment on above: Performed By: #### 2 31221 ####[facility],[address] [place] [address] Basophils/100 WBC Auto (Bld) 1.0 % Normal 0.0 - 2.0 [facility] Comment on above: Performed By: #### 2 47336 ####[facility],[address] [place] [address] Blood morphology N/A Normal [facility] Comment on above: Result Comment: {CD] Performed By: #### 2 32671 ####[facility],[address] [place] [address] CBC Normal [facility] Comment on above: Result Comment: CBC- COMPLETE BLOOD COUNT Performed By: #### 2 31757 ####[facility],[address] [place], [place] [address] Eosinophils 0.10 x10EE3/UL Normal 0.00 - 0.50 [facility] Comment on above: Performed By: #### 2 46488 ####[facility],[address] [place] [address] Eosinophils/100 leukocytes 1.6 % Normal 0.0 - 7.0 [facility] Comment on above: Performed By: #### 2 50235 ####[facility],[address] [place] [address] Erythrocyte distribution width Auto Ratio (RBC) 12.4 % Normal 12.0 - 15.6 [facility] Comment on above: Performed By: #### 2 07491 ####[facility],[address] [place] [address] Erythrocytes (RBC) 3.89 x 10EE6/UL Low 4.10 - 5.30 [facility] Comment on above: Performed By: #### 2 35484 ####[place] [address] Hematocrit (HCT) 36.4 % Normal 34.0 - 46.0 [facility] Comment on above: Performed By: #### 2 49777 ####[place] [address] Hemoglobin mass conc (Bld) 12.5 g/dL Normal 12.0 - 16.0 [facility] Comment on above: Performed By: #### 2 86639 ####[place] [address] Lymphocytes 2.50 x10EE3/UL Normal 0.80 - 2.80 [facility] Comment on above: Performed By: #### 2 35751 ####[place] [address] Lymphocytes/100 leukocytes 41.7 % Normal 20.0 - 45.0 [facility] Comment on above: Performed By: #### 2 18678 ####[place] [address] MANUAL DIFF N/A Normal [facility] Comment on above: Performed By: #### 2 10478 ####[place] [address] MCH 32 pg Normal 27 - 33 [facility] Comment on above: Performed By: #### 2 50392 ####[facility],[address] [place] [address] MCHC mass conc (RBC) 34 X10 3 Normal 32 - 36 [facility] Comment on above: Performed By: #### 2 20936 ####[facility],[address] [place] [address] MCV 93 fL Normal 80 - 99 [facility] Comment on above: Performed By: #### 2 22079 ####[facility],[address] [place] [address] Monocytes 0.40 x10EE3/UL Normal 0.20 - 1.00 [facility] Comment on above: Performed By: #### 2 41623 ####[facility],[address] [place] [address] MONOS % 7.1 % Normal 0.0 - 10.0 [facility] Comment on above: Performed By: #### 2 36908 ####[facility],[address] [place] [address] Neutrophils 3.00 x10EE3/UL Normal 1.50 - 7.10 [facility] Comment on above: Performed By: #### 2 21710 ####[facility],[address] [place] [address] Neutrophils/100 WBC Auto (Bld) 48.6 % Normal 46.0 - 76.0 [facility] Comment on above: Performed By: #### 2 56517 ####[facility],[address] [place] [address] Platelet mean volume (PMV) 10.5 fL Normal 6.6 - 10.5 [facility] Comment on above: Result Comment: AUTO MATED DIFFERENTIAL Performed By: #### 2 40292 ####[facility],[address] [place] [address] Platelets 190 x10EE3/UL Normal 150 - 450 [facility] Comment on above: Performed By: #### 2 82798 ####[facility],[address] [place], [place] [address] WBC (Leukocytes) 6.1 x 10EE3/UL Normal 4.5 - 10.8 [facility] Comment on above: Performed By: #### 2 86423 ####[facility],[address] [place], [place] [address] CHEST 2 VIEWSon 08-12-2017 CHEST 2 VIEWS [facility] [address] [place] [address] Patient: LOUANN CLEMENTS Phone#: : 1995 Age: 22 Gender: F Pt. Type: ER Account: [id number] Location: [facility] Ordering: OZZIE MIRANDA Exam Date: 08/12/2017/13:06 Family Phys: JEANE SEGOVIA Charge Code: [id number] Physician: [place] Order #: [id number] [id number] Dose#: PROCEDURE: X-RAY CHEST 2 VIEWS [...] Walker MD on 08/12/2017 at 13:41 Normal [facility] CMP with eGFRon 08-12-2017 Age 22 years Normal [facility] Comment on above: Performed By: #### 2 00691 ####[facility],[address] [place] [address] Albumin 3.8 g/dL Normal 3.4 - 4.8 [facility] Comment on above: Performed By: #### 2 84473 ####[facility],[address] [place] [address] Albumin/Globulin Ratio 1.6 {ratio} Normal 0.9 - 1.6 [facility] Comment on above: Performed By: #### 2 30443 ####[facility],[address] [place] [address] ALK PHOS 35 U/L Low 38 - 126 [facility] Comment on above: Performed By: #### 2 60441 ####[facility],[address] [place] [address] ALT/SGPT 11 U/L Normal 8 - 35 [facility] Comment on above: Performed By: #### 2 17573 ####[facility],[address] [place] [address] Anion gap 12 mmol/L Normal 10 - 20 [facility] Comment on above: Performed By: #### 2 60933 ####[facility],[address] [place], [place] [address] AST/SGOT 17 U/L Normal 13 - 39 [facility] Comment on above: Performed By: #### 2 66376 ####[facility],[address] [place], [place] [address] B/C RATIO 18 ratio Normal 0 - 30 [facility] Comment on above: Performed By: #### 2 56744 ####[facility],[address] [place], [place] [address] Bilirubin (total) 0.2 mg/dL Normal 0.0 - 1.5 [facility] Comment on above: Performed By: #### 2 25712 ####[facility],[address] [place], [place] [address] Calcium 8.6 mg/dL Normal 8.6 - 10.2 [facility] Comment on above: Performed By: #### 2 52596 ####[facility],[address] [place], [place] [address] Chloride 108 mmol/L High 98 - 107 [facility] Comment on above: Performed By: #### 2 96917 ####[facility],[address] [place] [address] CO2 24.3 mmol/L Normal 21.0 - 31.0 [facility] Comment on above: Performed By: #### 2 14294 ####[facility],[address] [place] [address] Creatinine 0.8 mg/dL Normal 0.6 - 1.2 [facility] Comment on above: Performed By: #### 2 70843 ####[facility],[address] [place] [address] eGFR (non-black) Normal [facility] Comment on above: Result Comment: COMP REHENSIVE METABOLIC PANEL Performed By: #### 2 55257 ####[facility],[address] [place] [address] eGFR (non-black) mL/min/{1.73_m2} Normal 60 - 999 [facility] Comment on above: Performed By: #### 2 93925 ####[facility],[address] [place] [address] Result Comment: ACCO RDING TO THE NATIONAL KIDNEY DISEASE EDUCATION PROGRAM(NKDE), A NORMAL eGFRIS A VALUE GREATER THAN OR EQUAL TO 60 ML/MIN/1.73 SQ METERS.CHRONIC KIDNEY DISEASE: <60mL/MIN/1.73 SQ METERSKIDNEY FAILURE: <15mL/MIN/1.73 SQ METERSTHIS TEST SHOULD ONLY BE USED FOR PATIENTS 18 YEARS OF AGE AND OLDER. Globulin 2.4 g/dL Normal 1.5 - 3.8 [facility] Comment on above: Performed By: #### 2 56727 ####[facility],[address] [place] [address] Glucose mass conc 95 mg/dL Normal 74 - 106 [facility] Comment on above: Performed By: #### 2 15510 ####[facility],[address] [place] [address] Potassium molar conc 3.7 mmol/L Normal 3.5 - 5.1 [facility] Comment on above: Performed By: #### 2 42251 ####[facility],[address] [place] [address] Protein 6.2 g/dL Low 6.4 - 8.3 [facility] Comment on above: Performed By: #### 2 07395 ####[facility],[address] [place] [address] Sodium 141 mmol/L Normal 136 - 145 [facility] Comment on above: Performed By: #### 2 84814 ####[facility],[address] [place] [address] Urea nitrogen 14 mg/dL Normal 6 - 20 [facility] Comment on above: Performed By: #### 2 41094 ####[facility],[address] [place] [address] D-DIMER, QUANTITATIVEon 07-0 D-DIMER QUANT 141 ng/ml Normal 0 - 230 [facility] Comment on above: Performed By: #### 2 93981 ####[facility],[address] [place], [place] [address] D-DIMER, QUANTITATIVE Normal [facility] Comment on above: Result Comment: ANUEL T D-DIMER Performed By: #### 2 00705 ####[facility],[address] [place], [place] [address] DRUG SCREEN URINE MEDICon AMPHETAMINES Negative Normal [facility] Comment on above: Performed By: #### 2 08128 ####[facility],[address] [place], [place] [address] B-DIAZEPINES Negative Normal [facility] Comment on above: Performed By: #### 2 20885 ####[facility],[address] [place], [place] [address] BARBITURATES Negative Normal [facility] Comment on above: Performed By: #### 2 86098 ####[facility],[address] [place] [address],[facility] [address] COCAINE Negative Normal [facility] Comment on above: Performed By: #### 2 16320 ####[facility],[address] [place] [address],[facility] [address] DRUG SCREEN URINE MEDIC Normal [facility] Comment on above: Result Comment: DRUG SCREEN - URINE Performed By: #### 2 54439 ####[facility],[address] [place] [address],[facility] [address] METHADONE Negative Normal [facility] Comment on above: Performed By: #### 2 23662 ####[facility],[address] [place] [address],[facility] [address] OPIATES Negative [facility] Comment on above: Performed By: #### 2 34573 ####[facility],[address] [place] [address] PCP Negative Normal [facility] Comment on above: Performed By: #### 2 15389 ####[facility],[address] [place] [address] TCA Negative Normal [facility] Comment on above: Performed By: #### 2 99242 ####[facility],[address] [place] [address] THC Negative Normal [facility] Comment on above: Result Comment: PARVIN ENTS RECEIVING PROTON PUMP INHIBITORS MAY DEMONSTRATE FALSE POSITIVETHC/CANNABINOID RESULTS. AN ALTERNATIVE CONFIRMATORY METHOD SHOULD BE CONSIDEREDTO VERIFY POSITIVE RESULTS. Performed By: #### 2 82732 ####[facility],[address] [place] [address] LACTATEon 08-12-2017 Lactate 7.8 mg/dL Normal 4.5 - 18.0 [facility] Comment on above: Performed By: #### 2 29255 ####[facility],[address] [place] [address],[facility] [address] LIPASEon 08-12-2017 Lipase 16.0 U/L Low 18.0 - 51.0 [facility] Comment on above: Performed By: #### 2 74913 ####[facility],[address] [place] [address] MAGNESIUMon 08-12-2017 Magnesium 1.9 mg/dL Normal 1.6 - 2.6 [facility] Comment on above: Performed By: #### 2 75019 ####[facility],[address] [place] [address] URINEon 08-12-2017 EXTERNAL QC DONE? YES Normal [facility] Comment on above: Performed By: #### 2 00921 ####[facility],[address] [place] [address] INTERNAL QC PASS Normal [facility] Comment on above: Performed By: #### 2 70919 ####[facility],[address] [place] [address] UR Negative Normal NEGATIVE [facility] Comment on above: Performed By: #### 2 80784 ####[facility],[address] [place] [address] PROTHROMBIN TIME AND INRon 0 08-12-2017 INR Coag RelTime (Bld) Normal [facility] Comment on above: Result Comment: PROT HROMBIN TIME AND INR Performed By: #### 2 [id number] ####[facility],[address] [place] [address] INR Coag RelTime (PPP) 0.9 {INR} Normal 0.8 - 1.2 [facility] Comment on above: Result Comment: T [...] MECHANICAL HEART VALVES Performed By: #### 2 [id number] ####[facility],[address] [place] [address] PT-COUMADIN 10.4 sec Normal [facility] Comment on above: Performed By: #### 2 [id number] ####[facility],[address] [place] [address] SEDRATEon 08-12-2017 SEDRATE 2 mm/hr Normal 0 - 30 [facility] Comment on above: Performed By: #### 2 [id number] ####[facility],[address] [place] [address] TROPONINon 08-12-2017 Troponin I.cardiac mass conc ng/mL Normal 0.00 - 0.05 [facility] Comment on above: Result Comment: Elev ated [...] as heterophile antibodies). Performed By: #### 2 [id number] ####[facility],[address] [place] [address] TSHon 08-12-2017 Thyroid stimulating hormone (TSH) 3.64 uIU/ml Normal 0.34 - 5.60 [facility] Comment on above: Performed By: #### 2 [id number] ####[facility],[address] [place] [address] URINALYSISon 08-12-2017 Bilirubin Negative Normal NORMAL: NEGATIVE [facility] Comment on above: Performed By: #### 2 87530 ####[facility],[address] [place] [address] Blood Negative Normal NORMAL: NEGATIVE [facility] Comment on above: Performed By: #### 2 [id number] ####[facility],[address] [place] [address],[facility] [address] Clarity clear Normal NORMAL: CLEAR [facility] Comment on above: Performed By: #### 2 28614 ####[facility],[address] [place] [address] Color p.yel Normal NORMAL: YELLOW [facility] Comment on above: Performed By: #### 2 [id number] ####[facility],[address] [place] [address] Glucose NORM Normal NORMAL: NORMAL [facility] Comment on above: Performed By: #### 2 [id number] ####[facility],[address] [place] [address],[facility] [address] Ketone Negative Normal NORMAL: NEGATIVE [facility] Comment on above: Performed By: #### 2 [id number] ####[facility],[address] [place] [address] Leukocytes Negative Normal NORMAL: NEGATIVE [facility] Comment on above: Performed By: #### 2 [id number] ####[facility],[address] [place] [address] Microscopic NOT INDICATED Normal [facility] Comment on above: Performed By: #### 2 [id number] ####[facility],[address] [place] [address] Nitrite Negative Normal NORMAL: NEGATIVE [facility] Comment on above: Performed By: #### 2 31603 ####[facility],[address] [place] [address] ph 5 Normal NORMAL: 5.0-8.0 [facility] Comment on above: Performed By: #### 2 [id number] ####[facility],[address] [place] [address] Protein Negative Normal NORMAL: NEGATIVE [facility] Comment on above: Performed By: #### 2 38266 ####[facility],[address] [place] [address] Sp Anson 1.015 Normal NORMAL: 1.010-1.030 [facility] Comment on above: Performed By: #### 2 [id number] ####[facility],[address] [place] [address] Specimen Type Void Normal [facility] Comment on above: Performed By: #### 2 [id number] ####[facility],[address] [place] [address] URINALYSIS Normal [facility] Comment on above: Result Comment: URIN ALYSIS Performed By: #### 2 [id number] ####[facility],[address] [place] [address] Urobilinog NORM Normal NORMAL: NORMAL [facility] Comment on above: Performed By: #### 2 [id number] ####[facility],[address] [place] [address] Vital Signs Date Time Vital Sign Value Performing Clinician Brennan flower 09-29-2024 14:20-0400 Body mass index (BMI) [Ratio] 34.54 kg/m2 Melissa Ledesma MD Work Phone: [facility] 09-29-2024 14:20-0400 Body weight 88.45 kg Melissa Ledesma MD Work Phone: [facility] 09-29-2024 14:20-0400 Diastolic blood pressure 62 mm[Hg] Melissa Ledesma MD Work Phone: [facility] 09-29-2024 14:20-0400 Systolic blood pressure 104 mm[Hg] Melissa Ledesma MD Work Phone: [facility] 09-23-2024 08:30-0400 Body mass index (BMI) [Ratio] 34.37 kg/m2 Melissa Ledesma MD Work Phone: [facility] 09-23-2024 08:30-0400 Body weight 88 kg Melissa Ledesma MD Work Phone: [facility] 09-23-2024 08:30-0400 Diastolic blood pressure 60 mm[Hg] Melissa Ledesma MD Work Phone: [facility] 09-23-2024 08:30-0400 Systolic blood pressure 110 mm[Hg] Melissa Ledesma MD Work Phone: [facility] 09-02-2024 13:29-0400 Body mass index (BMI) [Ratio] 32.59 kg/m2 Melissa Ledesma MD Work Phone: [facility] 09-02-2024 13:29-0400 Body weight 83.46 kg Melissa Ledesma MD Work Phone: [facility] 09-02-2024 13:29-0400 Diastolic blood pressure 56 mm[Hg] Melissa Ledesma MD Work Phone: [facility] 09-02-2024 13:29-0400 Systolic blood pressure 100 mm[Hg] Melissaana Ledsema MD Work Phone: [facility] 08-19-2024 09:36-0400 Body mass index (BMI) [Ratio] 31.85 kg/m2 Melissa Ledesma MD Work Phone: [facility] 08-19-2024 09:36-0400 Body weight 81.56 kg Melissa Ledesma MD Work Phone: [facility] 08-19-2024 09:36-0400 Diastolic blood pressure 60 mm[Hg] Melissa Ledesma MD Work Phone: [facility] 08-19-2024 09:36-0400 Systolic blood pressure 100 mm[Hg] Melissa Ledesma MD Work Phone: [facility] 08-06-2024 13:43-0400 Body mass index (BMI) [Ratio] 32.06 kg/m2 Sreedhar Shields MD Work Phone: [facility] 08-06-2024 13:43-0400 Body weight 82.1 kg Sreedhar Shields MD Work Phone: [facility] 08-06-2024 13:43-0400 Diastolic blood pressure 58 mm[Hg] Sreedhar Shields MD Work Phone: [facility] 08-06-2024 13:43-0400 Systolic blood pressure 98 mm[Hg] Sreedhar Shields MD Work Phone: [facility] 07-23-2024 08:26-0400 Body mass index (BMI) [Ratio] 31.53 kg/m2 Melissa Ledesma MD Work Phone: [facility] 07-23-2024 08:26-0400 Body weight 80.74 kg Melissa Ledsema MD Work Phone: [facility] 07-23-2024 08:26-0400 Diastolic blood pressure 60 mm[Hg] Melissa Ledesma MD Work Phone: [facility] 07-23-2024 08:26-0400 Systolic blood pressure 100 mm[Hg] Melissa Ledesma MD Work Phone: [facility] 06-24-2024 16:19-0400 Body mass index (BMI) [Ratio] 30.93 kg/m2 Melissa Ledesma MD Work Phone: [facility] 06-24-2024 16:19-0400 Body weight 79.2 kg Melissa Ledesma MD Work Phone: [facility] 06-24-2024 16:19-0400 Diastolic blood pressure 62 mm[Hg] Melissa Ledesma MD Work Phone: [facility] 06-24-2024 16:19-0400 Systolic blood pressure 100 mm[Hg] Melissa Ledesma MD Work Phone: [facility] 05-26-2024 16:06-0400 Body mass index (BMI) [Ratio] 29.58 kg/m2 Melissa Ledesma MD Work Phone: [facility] 05-26-2024 16:06-0400 Body weight 75.75 kg Melissa Ledesma MD Work Phone: [facility] 05-26-2024 16:06-0400 Diastolic blood pressure 68 mm[Hg] Melissa Ledesma MD Work Phone: [facility] 05-26-2024 16:06-0400 Systolic blood pressure 98 mm[Hg] Melissa Ledesma MD Work Phone: [facility] 05-26-2024 15:21-0400 Body mass index (BMI) [Ratio] 29.58 kg/m2 [facility] 05-26-2024 15:21-0400 Body weight 75.75 kg [facility] 05-26-2024 15:21-0400 Diastolic blood pressure 68 mm[Hg] [facility] 05-26-2024 15:21-0400 Systolic blood pressure 98 mm[Hg] [facility] 04-30-2024 15:55-0400 Body mass index (BMI) [Ratio] 28.7 kg/m2 Melissa Ledesma MD Work Phone: [facility] 04-30-2024 15:55-0400 Body weight 73.48 kg Melissa Ledesma MD Work Phone: [facility] 04-30-2024 15:55-0400 Diastolic blood pressure 60 mm[Hg] Melissa Ledesma MD Work Phone: [facility] 04-30-2024 15:55-0400 Systolic blood pressure 100 mm[Hg] Melissa Ledesma MD Work Phone: [facility] 04-02-2024 14:57-0500 Body mass index (BMI) [Ratio] 28.17 kg/m2 Nazanin Beckwith MD Work Phone: [facility] 04-02-2024 14:57-0500 Body weight 72.12 kg Nazanin Beckwith MD Work Phone: [facility] 03-02-2024 08:41-0500 Body height 160 cm Christiane Guallpa RAILWAY STATION MANAGER.CNM Work Phone: [facility] 03-02-2024 08:41-0500 Body mass index (BMI) [Ratio] 28.87 kg/m2 Christiane Guallpa RAILWAY STATION MANAGER.CNM Work Phone: [facility] 03-02-2024 08:41-0500 Body weight 73.94 kg Christiane Guallpa RAILWAY STATION MANAGER.CNM Work Phone: [facility] 03-02-2024 08:41-0500 Diastolic blood pressure 66 mm[Hg] Christiane Guallpa RAILWAY STATION MANAGER.CNM Work Phone: [facility] 03-02-2024 08:41-0500 Systolic blood pressure 102 mm[Hg] Christiane Guallpa RAILWAY STATION MANAGER.CNM Work Phone: [facility] 11-07-2023 15:12-0400 Body height 162 cm Rubin Haury RAILWAY STATION MANAGER.HELP DESK ASSOCIATE Work Phone: [facility] 11-07-2023 15:12-0400 Body mass index (BMI) [Ratio] 27.1 kg/m2 Rubin Haury RAILWAY STATION MANAGER.HELP DESK ASSOCIATE Work Phone: [facility] 11-07-2023 15:12-0400 Body weight 71.12 kg Rubin Haury RAILWAY STATION MANAGER.HELP DESK ASSOCIATE Work Phone: [facility] 11-07-2023 15:12-0400 Diastolic blood pressure 60 mm[Hg] Rubin Haury RAILWAY STATION MANAGER.HELP DESK ASSOCIATE Work Phone: [facility] 11-07-2023 15:12-0400 Systolic blood pressure 98 mm[Hg] Rubin Haury RAILWAY STATION MANAGER.HELP DESK ASSOCIATE Work Phone: [facility] 06-26-2023 10:18-0400 Body mass index (BMI) [Ratio] 25.92 kg/m2 Lesley Otis RAILWAY STATION MANAGER.HELP DESK ASSOCIATE Work Phone: [facility] 06-26-2023 10:18-0400 Body temperature 98.49 [degF] Lesley Otis RAILWAY STATION MANAGER.HELP DESK ASSOCIATE Work Phone: [facility] 06-26-2023 10:18-0400 Body weight 68.49 kg Lesley Otis RAILWAY STATION MANAGER.HELP DESK ASSOCIATE Work Phone: [facility] 06-26-2023 10:18-0400 Diastolic blood pressure 76 mm[Hg] Lesley Otis RAILWAY STATION MANAGER.HELP DESK ASSOCIATE Work Phone: [facility] 06-26-2023 10:18-0400 Heart rate 83 /min Lesley Otis RAILWAY STATION MANAGER.HELP DESK ASSOCIATE Work Phone: [facility] 06-26-2023 10:18-0400 Respiratory rate 12 /min Lesley Otis RAILWAY STATION MANAGER.HELP DESK ASSOCIATE Work Phone: [facility] 06-26-2023 10:18-0400 SaO2% (BldA) [Mass fraction] 97 % Lesley Otis RAILWAY STATION MANAGER.HELP DESK ASSOCIATE Work Phone: [facility] 06-26-2023 10:18-0400 Systolic blood pressure 108 mm[Hg] Lesley Otis RAILWAY STATION MANAGER.HELP DESK ASSOCIATE Work Phone: [facility] 06-06-2023 14:46-0400 Body mass index (BMI) [Ratio] 26.13 kg/m2 Sylvia Curran RAILWAY STATION MANAGER.HELP DESK ASSOCIATE Work Phone: [facility] 06-06-2023 14:46-0400 Body weight 69.04 kg Sylvia Curran RAILWAY STATION MANAGER.HELP DESK ASSOCIATE Work Phone: [facility] 06-06-2023 14:46-0400 Diastolic blood pressure 60 mm[Hg] Sylvia Curran RAILWAY STATION MANAGER.HELP DESK ASSOCIATE Work Phone: [facility] 06-06-2023 14:46-0400 Heart rate 115 /min Sylvia Curran RAILWAY STATION MANAGER.HELP DESK ASSOCIATE Work Phone: [facility] 06-06-2023 14:46-0400 Respiratory rate 14 /min Sylvia Curran RAILWAY STATION MANAGER.HELP DESK ASSOCIATE Work Phone: [facility] 06-06-2023 14:46-0400 Systolic blood pressure 94 mm[Hg] Sylvia Curran RAILWAY STATION MANAGER.HELP DESK ASSOCIATE Work Phone: [facility] 02-18-2023 12:37-0500 Body height 160.[address] Sera Scott Work Phone: [facility] 01-10-2023 13:22-0500 Body mass index (BMI) [Ratio] 28 kg/m2 Dr. Sera Scott Work Phone: [facility] 01-10-2023 13:22-0500 Body weight 71.[address] Sera Scott Work Phone: [facility] 08-24-2022 11:33-0400 Body weight 69.85 kg Melissa Ledesma MD Work Phone: [facility] 08-24-2022 11:33-0400 Diastolic blood pressure 70 mm[Hg] Melissa Ledesma MD Work Phone: [facility] 08-24-2022 11:33-0400 Systolic blood pressure 114 mm[Hg] Melissa Ledesma MD Work Phone: [facility] 08-06-2022 07:29-0400 Body height 162.6 cm Jennifer Mistry RAILWAY STATION MANAGER.SWEATBAND SHAPER Work Phone: [facility] 08-06-2022 07:29-0400 Body weight 70.76 kg Jennifer Mistry RAILWAY STATION MANAGER.SWEATBAND SHAPER Work Phone: [facility] 08-06-2022 07:29-0400 Diastolic blood pressure 62 mm[Hg] Jennifer Mistry RAILWAY STATION MANAGER.SWEATBAND SHAPER Work Phone: [facility] 08-06-2022 07:29-0400 Heart rate 84 /min Jennifer Mistry RAILWAY STATION MANAGER.SWEATBAND SHAPER Work Phone: [facility] 08-06-2022 07:29-0400 Respiratory rate 16 /min Jennifer Mistry RAILWAY STATION MANAGER.SWEATBAND SHAPER Work Phone: [facility] 08-06-2022 07:29-0400 Systolic blood pressure 108 mm[Hg] Jennifer Mistry RAILWAY STATION MANAGER.SWEATBAND SHAPER Work Phone: [facility] 07-25-2022 21:23-0400 Body height 160.02 cm [facility] 07-25-2022 21:23-0400 Body mass index (BMI) [Ratio] 27.2 kg/m2 [facility] 07-25-2022 21:23-0400 Body temperature 98 [degF] [facility] 07-25-2022 21:23-0400 Body weight 69.7 kg [facility] 07-25-2022 21:23-0400 Diastolic blood pressure 83 mm[Hg] [facility] 07-25-2022 21:23-0400 Heart rate 70 /min [facility] 07-25-2022 21:23-0400 Respiratory rate 16 /min [facility] 07-25-2022 21:23-0400 SaO2% (BldA) [Mass fraction] 100 % [facility] 07-25-2022 21:23-0400 Systolic blood pressure 119 mm[Hg] [facility] 04-25-2022 11:16-0400 Body height 162 cm Melissa Ledesma MD Work Phone: [facility] 04-25-2022 11:16-0400 Body weight 73.39 kg Melissa Ledesma MD Work Phone: [facility] 04-25-2022 11:16-0400 Diastolic blood pressure 60 mm[Hg] Melissa Ledesma MD Work Phone: [facility] 04-25-2022 11:16-0400 Systolic blood pressure 108 mm[Hg] Melissa Ledesma MD Work Phone: [facility] 03-09-2022 08:09-0500 Body height 160 cm Sera Scott MD Work Phone: [facility] 03-09-2022 08:09-0500 Body temperature 97.39 [degF] Sera Scott MD Work Phone: [facility] 03-09-2022 08:09-0500 Body weight 73.48 kg Sera Scott MD Work Phone: [facility] 03-09-2022 08:09-0500 Diastolic blood pressure 58 mm[Hg] Sera Scott MD Work Phone: [facility] 03-09-2022 08:09-0500 Heart rate 88 /min Sera Scott MD Work Phone: [facility] 03-09-2022 08:09-0500 Respiratory rate 12 /min Sera Scott MD Work Phone: [facility] 03-09-2022 08:09-0500 SaO2% (BldA) [Mass fraction] 96 % Sera Scott MD Work Phone: [facility] 03-09-2022 08:09-0500 Systolic blood pressure 118 mm[Hg] Sera Scott MD Work Phone: [facility] 02-21-2022 16:28-0500 Body weight 73.03 kg Sarah Older RAILWAY STATION MANAGER.HELP DESK ASSOCIATE Work Phone: [facility] 02-21-2022 16:28-0500 Diastolic blood pressure 60 mm[Hg] Sarah Older RAILWAY STATION MANAGER.HELP DESK ASSOCIATE Work Phone: [facility] 02-21-2022 16:28-0500 Heart rate 60 /min Sarah Older RAILWAY STATION MANAGER.HELP DESK ASSOCIATE Work Phone: [facility] 02-21-2022 16:28-0500 Respiratory rate 16 /min Sarah Older RAILWAY STATION MANAGER.HELP DESK ASSOCIATE Work Phone: [facility] 02-21-2022 16:28-0500 Systolic blood pressure 108 mm[Hg] Sarah Older RAILWAY STATION MANAGER.HELP DESK ASSOCIATE Work Phone: [facility] 12-21-2021 16:13-0500 Body temperature 98.71 [degF] Christiane Leung RAILWAY STATION MANAGER.HELP DESK ASSOCIATE Work Phone: [facility] 12-21-2021 16:13-0500 Body weight 71.4 kg Christiane Leung RAILWAY STATION MANAGER.HELP DESK ASSOCIATE Work Phone: [facility] 12-21-2021 16:13-0500 Diastolic blood pressure 72 mm[Hg] Christiane Leung RAILWAY STATION MANAGER.HELP DESK ASSOCIATE Work Phone: [facility] 12-21-2021 16:13-0500 Heart rate 71 /min Christiane Leung RAILWAY STATION MANAGER.HELP DESK ASSOCIATE Work Phone: [facility] 12-21-2021 16:13-0500 Respiratory rate 18 /min Christiane Leung RAILWAY STATION MANAGER.HELP DESK ASSOCIATE Work Phone: [facility] 12-21-2021 16:13-0500 SaO2% (BldA) [Mass fraction] 98 % Christiane Leung RAILWAY STATION MANAGER.HELP DESK ASSOCIATE Work Phone: [facility] 12-21-2021 16:13-0500 Systolic blood pressure 110 mm[Hg] Christiane Leung RAILWAY STATION MANAGER.HELP DESK ASSOCIATE Work Phone: [facility] 11-28-2021 08:22-0400 Body temperature 99 [degF] Arti Athy PA-C Work Phone: [facility] 11-28-2021 08:22-0400 Body weight 68.95 kg Arti Athy PA-C Work Phone: [facility] 11-28-2021 08:22-0400 Diastolic blood pressure 64 mm[Hg] Arti Athy PA-C Work Phone: [facility] 11-28-2021 08:22-0400 Heart rate 118 /min Arti Athy PA-C Work Phone: [facility] 11-28-2021 08:22-0400 Respiratory rate 18 /min Arti Athy PA-C Work Phone: [facility] 11-28-2021 08:22-0400 SaO2% (BldA) [Mass fraction] 100 % Arti Pierre PA-C Work Phone: [facility] 11-28-2021 08:22-0400 Systolic blood pressure 102 mm[Hg] Arti ESPINAL-Malou Work Phone: [facility] 11-27-2021 07:36-0400 Body temperature 99.5 [degF] Cindy Beckwith APRN.HELP DESK ASSOCIATE Work Phone: [facility] 11-27-2021 07:36-0400 Body weight 69.4 kg Cindy Beckwith APRN.HELP DESK ASSOCIATE Work Phone: [facility] 11-27-2021 07:36-0400 Diastolic blood pressure 62 mm[Hg] Cindy Beckwith APRN.HELP DESK ASSOCIATE Work Phone: [facility] 11-27-2021 07:36-0400 Heart rate 125 /min Cindy Beckwith APRN.HELP DESK ASSOCIATE Work Phone: [facility] 11-27-2021 07:36-0400 Respiratory rate 21 /min Cindy Beckwith APRN.HELP DESK ASSOCIATE Work Phone: [facility] 11-27-2021 07:36-0400 SaO2% (BldA) [Mass fraction] 98 % Cindy Beckwith APRN.HELP DESK ASSOCIATE Work Phone: [facility] 11-27-2021 07:36-0400 Systolic blood pressure 102 mm[Hg] Cindy Beckwith APRN.HELP DESK ASSOCIATE Work Phone: [facility] 09-11-2021 09:01-0400 Body height 160 cm Sarah Older RAILWAY STATION MANAGER.HELP DESK ASSOCIATE Work Phone: [facility] 09-11-2021 09:01-0400 Body weight 69.4 kg Sarah Older RAILWAY STATION MANAGER.HELP DESK ASSOCIATE Work Phone: [facility] 09-11-2021 09:01-0400 Diastolic blood pressure 66 mm[Hg] Sarah Older RAILWAY STATION MANAGER.HELP DESK ASSOCIATE Work Phone: [facility] 09-11-2021 09:01-0400 Heart rate 70 /min Sarah Older RAILWAY STATION MANAGER.HELP DESK ASSOCIATE Work Phone: [facility] 09-11-2021 09:01-0400 Respiratory rate 14 /min Sarah Older RAILWAY STATION MANAGER.HELP DESK ASSOCIATE Work Phone: [facility] 09-11-2021 09:01-0400 Systolic blood pressure 110 mm[Hg] Sarah Older RAILWAY STATION MANAGER.HELP DESK ASSOCIATE Work Phone: [facility] Encounters Encounter Date Encounter Type Care Provider Facility Start: 09-29-2024 End: 09-29-2024 Patient encounter procedure Melissa Ledesma MD Work Phone: OB/Gynecology Comment on above: Encounter for superv ision of other normal in third trimester (HCC) (Primary Dx); Anemia complicating , third trimester ([facility]); History of delivery by vacuum extraction, currently ([facility]); Uterine size-date discrepancy, third trimester ([facility]); 38 weeks gestation of ([facility]) Start: 09-29-2024 End: 09-29-2024 [facility] Facility:[facility] Start: 09-28-2024 End: 09-28-2024 ambulatory [facility] Start: 09-28-2024 End: 09-28-2024 Patient encounter procedure [facility] Comment on above: Population Health Na vigation Outreach ( to PCP/OB//) Start: 09-23-2024 End: 09-23-2024 Patient encounter procedure Melissa Ledesma MD Work Phone: OB/Gynecology Comment on above: Encounter for superv ision of other normal in third trimester (HCC) (Primary Dx); Anemia complicating , third trimester (HCC); History of delivery by vacuum extraction, currently ([facility]); 37 weeks gestation of (HCC) Start: 09-23-2024 End: 09-23-2024 [facility] Facility:[facility] Start: 09-16-2024 End: 09-16-2024 [facility] Facility:[facility] Start: 09-02-2024 End: 09-02-2024 Patient encounter procedure Melissa Ledesma MD Work Phone: OB/Gynecology Comment on above: Encounter for superv ision of other normal in third trimester (HCC) (Primary Dx); Anemia complicating , third trimester (HCC); History of delivery by vacuum extraction, currently (HCC); 34 weeks gestation of (HCC) Start: 09-02-2024 End: 09-02-2024 [facility] Facility:[facility] Start: 08-19-2024 End: 08-19-2024 Patient encounter procedure Melissa Ledesma MD Work Phone: OB/Gynecology Comment on above: Encounter for superv ision of other normal in third trimester (HCC) (Primary Dx); Anemia complicating , third trimester (HCC); 32 weeks gestation of (HCC) Start: 08-19-2024 End: 08-19-2024 [facility] Facility:[facility] Start: 08-06-2024 End: 08-06-2024 Patient encounter procedure Sreedhar Shields MD Work Phone: OB/Gynecology Comment on above: Encounter for superv ision of other normal in third trimester (HCC) (Primary Dx); Anemia complicating , third trimester (HCC); 30 weeks gestation of (HCC) Start: 08-06-2024 End: 08-06-2024 [facility] Facility:[facility] Start: 08-04-2024 End: 08-04-2024 ambulatory Melissa Ledesma MD Work Phone: OB/Gynecology Comment on above: Stomach cramps Start: 07-31-2024 End: 09-30-2024 Follow-up encounter Rubin Davila APRN.CNP Work Phone: OB/Gynecology Start: 07-31-2024 End: 07-31-2024 [facility] Facility:[facility] Start: 07-24-2024 End: 07-24-2024 Telephone encounter Nurse Data Management Javad Amezcua Work Phone: Obstetrics/Gynecology Comment on above: PRAF Start: 07-23-2024 End: 09-22-2024 Follow-up encounter Melissa Ledesma MD Work Phone: OB/Gynecology Start: 07-23-2024 End: 07-23-2024 Patient encounter procedure Melissa Ledesma MD Work Phone: OB/Gynecology Comment on above: Encounter for superv ision of other normal in third trimester ([facility]) (Primary Dx); History of delivery by vacuum extraction, currently ([facility]); Rh negative state in antepartum period ([facility]); Need for vaccination; 28 weeks gestation of ([facility]) Start: 07-23-2024 End: 07-23-2024 [facility] Facility:[facility] Start: 07-22-2024 End: 07-22-2024 ambulatory Melissa Ledesma MD Work Phone: OB/Gynecology Comment on above: Glucose test Start: 06-24-2024 End: 06-24-2024 Patient encounter procedure Melissa Ledesma MD Work Phone: OB/Gynecology Comment on above: Encounter for superv ision of other normal in second trimester [facility] [facility]) (Primary Dx); Screening for diabetes mellitus; 24 weeks gestation of ([facility]) Start: 06-24-2024 End: 06-24-2024 [facility] Facility:[facility] Start: 05-27-2024 End: 05-27-2024 Telephone encounter Nurse Data Management Javad Amezcua Work Phone: Obstetrics/Gynecology Comment on above: PRAF Start: 05-26-2024 End: 05-26-2024 [facility] Facility:[facility] Start: 05-26-2024 End: 05-26-2024 [facility] Facility:[facility] Start: 05-26-2024 End: 05-26-2024 Patient encounter procedure [...] weeks gestation of Start: 04-30-2024 End: 04-30-2024 [facility] Facility:[facility] Start: 04-29-2024 End: 04-29-2024 Telephone encounter Sreedhar Shields MD Work Phone: OB/Gynecology Comment on above: Blacking out episode Start: 04-02-2024 End: 04-02-2024 [facility] Facility:[facility] Start: 04-02-2024 End: 04-02-2024 Patient encounter procedure Nazanin Beckwith MD Work Phone: OB/Gynecology Comment on above: Supervision of other normal (Primary Dx); 12 weeks gestation of Start: 04-02-2024 End: 06-02-2024 Follow-up encounter Sreedhar Shields MD Work Phone: OB/Gynecology Start: 03-31-2024 End: 03-31-2024 Patient encounter procedure Whi Tech 2 Data Management M[facility] Maternal Medicine Comment on above: Encounter for antena lashell screening for malformation using ultrasound (Primary Dx); 12 weeks gestation of Start: 03-31-2024 End: 03-31-2024 [facility] Facility:[facility] Start: 03-03-2024 End: 03-03-2024 Telephone encounter Elvia Gilmore RN Obstetrics/Gynecolog y Comment on above: 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) Start: 03-02-2024 End: 03-02-2024 [facility] Facility:[facility] Start: 03-02-2024 End: 03-02-2024 Patient encounter procedure Christiane Guallpa APRN.CNM Work Phone: OB/Gynecology Comment on above: with uncer tain dates in first trimester (Primary Dx); Supervision of other normal ; History of delivery by vacuum extraction, currently ; Rh negative state in antepartum period; Pars defect of lumbar spine Start: 11-15-2023 End: 11-15-2023 ambulatory [facility] OB/Gynecology Start: 11-15-2023 End: 11-15-2023 Patient encounter procedure Whi Tech 1 Data Management Wstr [facility] OB/Gynecology Start: 11-07-2023 End: 11-07-2023 [facility] Facility:[facility] Start: 11-07-2023 End: 11-07-2023 Patient encounter procedure Rubin Davila APRN.HELP DESK ASSOCIATE Work Phone: OB/Gynecology Comment on above: Encounter for gyneco logical examination (general) (routine) without abnormal findings (Primary Dx); Dyspareunia in female Start: 11-07-2023 End: 11-07-2023 Patient encounter status Rubin Davila APRN.HELP DESK ASSOCIATE Work Phone: [facility] Start: 09-18-2023 [facility] Start: 09-18-2023 [facility] Start: 09-18-2023 End: 09-18-2023 [facility] Facility:[facility] Start: 09-05-2023 End: 09-05-2023 Nursing evaluation of patient and report Mi Nurse Work Phone: [facility] Comment on above: Screening-pulmonary TB (Primary Dx) Start: 09-02-2023 End: 09-02-2023 Nursing evaluation of patient and report Mi Nurse Work Phone: [facility] Comment on above: Screening-pulmonary TB (Primary Dx) Start: 08-30-2023 [facility] Start: 08-30-2023 End: 08-30-2023 [facility] Facility:[facility] Start: 08-28-2023 End: 08-28-2023 ambulatory [facility] Start: 08-20-2023 Telephone encounter Sera blanco MD Work Phone: Internal Medicine [place] Comment on above: Orders Start: 07-21-2023 End: 07-21-2023 Emergency department patient visit Sera Scott Facility:[facility] Start: 06-27-2023 Telephone encounter Sera blanco MD Work Phone: Internal Medicine [place] Comment on above: Results Start: 06-26-2023 ambulatory LESLEY ALVA Facil ity:[facility] Start: 06-26-2023 End: 06-26-2023 Subsequent hospital visit by physician [facility] Comment on above: Epigastric pain [R10 .13] Start: 06-26-2023 End: 06-26-2023 Patient encounter procedure Lesley Alva APRN.HELP DESK ASSOCIATE Work Phone: Internal Medicine [place] Comment on above: Epigastric pain (Rebecca veronique Dx); Nausea and vomiting, unspecified vomiting type Start: 06-19-2023 ambulatory Sylvia Curran APRN.HELP DESK ASSOCIATE Work Phone: Family [facility] [place] Comment on above: Heart monitor Start: 06-06-2023 End: 06-06-2023 Patient encounter procedure Sylvia Curran APRN.HELP DESK ASSOCIATE Work Phone: Family [facility] Comment on above: Rapid heartbeat (Rebecca veronique Dx); Palpitations; VERENICE (generalized anxiety disorder); Pain of right thumb Start: 02-19-2023 End: 02-19-[address] Sera Scott Work Phone: [facility] Work Phone: Start: 02-19-2023 End: 02-19-2023 ambulatory No Primary Care Physician [facility] Start: 02-16-2023 End: 02-16-[address] Sera Scott Work Phone: [facility] Work Phone: Start: 02-16-2023 End: 02-16-[address] Sera Scott Work Phone: [facility] Work Phone: Start: 02-16-2023 End: 02-16-2023 ambulatory No Primary Care Physician Facility:[facility] Start: 01-10-2023 End: 01-10-[address] Sera Scott Work Phone: [facility] Work Phone: Start: 01-10-2023 End: 01-10-2023 ambulatory Sera Scott [facility] Start: 08-24-2022 End: 08-24-2022 Patient encounter procedure Melissa Ledesma MD Work Phone: OB/Gynecology Comment on above: Abdominal pain in fe male (Primary Dx); Free fluid in pelvis; Oral contraceptive pill surveillance; Deep dyspareunia Start: 08-08-2022 End: 08-08-2022 Subsequent hospital visit by physician [facility] 2 Work Phone: Radiology Comment on above: Acute pancreatitis, unspecified complication status, unspecified pancreatitis type [K85.90] Start: 08-06-2022 End: 08-06-2022 Office outpatient visit 15 minutes Jennifer Mistry APRN.CNS Work Phone: Internal Medicine [place] Comment on above: Acute pancreatitis, unspecified complication status, unspecified pancreatitis type (Primary Dx); Pelvic pain in female; Routine medical exam Start: 08-06-2022 End: 08-06-2022 Patient encounter status Jennifer Mistry APRN.SWEATBAND SHAPER Work Phone: Internal Medicine [place] Start: 07-25-2022 End: 07-25-2022 Emergency department patient visit [facility] Start: 05-26-2022 Refill Melissa Ledesma [...] and report Mi Nurse Work Phone: Family [facility] [place] Comment on above: Screening examinatio n for pulmonary tuberculosis (Primary Dx) Start: 03-09-2022 End: 03-09-2022 Patient encounter procedure Sera Scott MD Work Phone: Internal Medicine [place] Comment on above: 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, sciatica laterality unspecified (Primary Dx); Other migraine without status migrainosus, not intractable; Overweight Start: 03-05-2022 Telephone encounter Sera blanco MD Work Phone: Internal Medicine [place] Comment on above: Orders Start: 03-02-2022 End: 03-02-2022 Nursing evaluation of patient and report Mi Nurse Work Phone: Family [facility] [place] Comment on above: Screening examinatio n for pulmonary tuberculosis (Primary Dx) Start: 02-27-2022 Refill Melissa Ledesma MD Work Phone: OB/Gynecology Comment on above: Refill Request Start: 02-22-2022 Telephone encounter Sera blanco MD Work Phone: Internal [facility] [place] Comment on above: Orders Start: 02-21-2022 End: 02-21-2022 Patient encounter procedure Sarah Jaimes APRN.CNP Work Phone: Internal Medicine [place] Comment on above: Rash and other nonsp ecific skin eruption (Primary Dx) Start: 12-21-2021 End: 12-21-2021 Subsequent hospital visit by physician Xr [facility] [place] Work Phone: Radiology Comment on above: Right wrist pain [M2 5.531] Start: 12-21-2021 End: 12-21-2021 Patient encounter procedure Christiane Leung APRN.HELP DESK ASSOCIATE Work Phone: [place] [facility] Comment on above: Right wrist pain (Pr imary Dx) Start: 11-28-2021 End: 11-28-2021 Patient encounter procedure Arti Pierre PA-C Work Phone: [facility] Comment on above: Sore throat (Primary Dx) Start: 11-27-2021 End: 11-27-2021 Patient encounter procedure Cindy Beckwith APRN.HELP DESK ASSOCIATE Work Phone: [place] [facility] Comment on above: Sore throat (Primary Dx); At increased risk of exposure to COVID-19 virus Start: 09-11-2021 End: 09-11-2021 Patient encounter procedure Sarah Jaimes APRN.HELP DESK ASSOCIATE Work Phone: Internal Medicine [place] Comment on above: Annual physical exam (Primary Dx); Fatigue, unspecified type; Chronic mixed headache syndrome; Chronic back pain, unspecified back location, unspecified back pain laterality Start: 01-31-2021 Telephone encounter Sera blanco MD Work Phone: Internal Medicine [place] Comment on above: Appointment Start: 08-20-2018 End: 09-17-2018 Patient requested procedure Sylvia Curran RAILWAY STATION MANAGER.HELP DESK ASSOCIATE Work Phone: [facility] Start: 12-12-2017 Emergency department patient visit UNKNOWN PROVIDER [facility] Start: 08-12-2017 End: 08-12-2017 Emergency department patient visit OZZIE MIRANDA [facility] Start: 09-18-2016 End: 10-24-2016 Ambulatory GAMAL MEDEROS [facility] Procedures Date Procedure Procedure Detail Performing Clinician Start: 09-29-2024 Urnls dip stick/tabl et rgnt non-auto w/o micrscp Melissa Ledesma MD Work Phone: Start: 09-02-2024 Urnls dip stick/tabl et rgnt non-auto w/o micrscp Meilssa Ledesma MD Work Phone: Start: 07-23-2024 Antibody screen SERA SCOTT Comment on above: Order Comment: Speci men Type: BLOOD SPECIMENOrdering Facility: [facility] Address: [address] [place] [address] Performed By: #### T SPN ####CC MAIN BLOOD BANKCLIA [id number] [address] [place] Start: 05-26-2024 Us preg uterus after 1st trimest 02/11 gestation Chrsitiane Guallpa APRN.CNM Work Phone: Start: 03-31-2024 Antibody screen SERA SCOTT Comment on above: Order Comment: Speci men Type: BLOOD SPECIMENOrdering Facility: [facility] Address: [address] [place] [address] Performed By: #### T SPN ####CC MAIN BLOOD BANKCLIA [id number] [address] [place] Start: 03-31-2024 Us preg uterus after 1st trimest 02/11 gestation Christiane Guallpa APRN.CNM Work Phone: Start: 03-02-2024 Us uterus l imited 1/> fetuses Christiane Guallpa APRN.CNM Work Phone: Start: 11-15-2023 Us pelvic nonobstetr ic real-time image complete Rubin Davila RAILWAY STATION MANAGER.HELP DESK ASSOCIATE Work Phone: Start: 06-26-2023 Us abdominal real ti me w/image limited Lesley Alva RAILWAY STATION MANAGER.HELP DESK ASSOCIATE Work Phone: Start: 02-19-2023 X-ray of lumbar spin e, two or three views Dr. Sera Scott Work Phone: Start: 02-16-2023 MRI of lumbar spine Dr. Sera Scott Work Phone: Start: 01-10-2023 X-ray of lumbar spin e, two or three views Dr. Sera Scott Work Phone: Start: 08-08-2022 Us abdominal real ti me w/image limited Jennifer Mistry RAILWAY STATION MANAGER.SWEATBAND SHAPER Work Phone: Start: 07-25-2022 CT of abdomen and pe lvis without contrast Start: 03-27-2022 PFIZER-BIONTECH COVI D-19 PRIMARY SERIES VACCINE, AGE 12+ YR Sera Scott MD Work Phone: Start: 12-21-2021 Radex wrist complete minimum 3 views Christiane Leung RAILWAY STATION MANAGER.HELP DESK ASSOCIATE Work Phone: Start: 11-28-2021 STREP A MOLECULAR (POC) Arti Pierre PA-C Work Phone: Start: 11-27-2021 STREP A MOLECULAR (POC) Cindy Beckwith RAILWAY STATION MANAGER.HELP DESK ASSOCIATE Work Phone: Start: 09-11-2021 Adult depression scr eening assessment Sarah Jaimes RAILWAY STATION MANAGER.HELP DESK ASSOCIATE Work Phone: Start: 07-08-2020 Adult depression scr eening assessment Sera Sctot MD Work Phone: Plan of Treatment Date Care Activity Detail Author Start: 07-23-2034 Urine microalbumin profile DTaP,Tdap,Td Vaccine (9 - Td or Tdap) [facility] Start: 01-13-2029 Urine microalbumin profile [facility] Start: 04-25-2025 PAP TESTING PAP TESTING [facility] Start: 04-25-2025 Screening for malign ant neoplasm of cervix [facility] Start: 11-06-2024 End: 11-06-2024 Patient encounter procedure 11/06/2024 8:15 AM EDT Office Visit OB/Gynecology [address] [place] [address] Rubin Davila RAILWAY STATION MANAGER.[facility] [address] [id number] Annual OB/Gynecology Comment on above: Annual Start: 10-14-2024 End: 10-14-2024 Patient encounter procedure 10/14/2024 2:20 PM EDT Routine Office Visit OB/Gynecology [address] [place] [address] Melissa Sanderson MD [address] [place] [address] 40 week appt OB/Gynecology Comment on above: 40 week appt Start: 10-12-2024 Influenza vaccination Influenza Vacc ine (#1) [facility] Start: 10-07-2024 End: 10-07-2024 Patient encounter procedure 10/07/2024 10:00 AM EDT Routine Office Visit OB/Gynecology [address] [place] [address] Melissa Sanderson MD [address] [place] [address] 39 week appointment OB/Gynecology Comment on above: 39 week appointment Start: 10-05-2024 End: 10-05-2024 Patient encounter procedure 10/05/2024 3:30 PM EDT Routine Office Visit Maternal Medicine [address] [place] [address] Growth Maternal Medicine Comment on above: Growth Start: 09-29-2024 End: 09-29-2024 Patient encounter procedure 09/29/2024 2:20 PM EDT Routine Office Visit OB/Gynecology [address] [place] [address] Melissa Sanderson MD [address] [place] [address] 38 week appointment OB/Gynecology Comment on above: 38 week appointment Start: 09-29-2024 End: 09-29-2025 OBSTETRIC ULTRASOUND WHI OBSTETRIC ULTRASOUND WHI Anc Imaging Routine 38 weeks gestation of (HCC) Uterine size-date discrepancy, third trimester (HCC) Expected: 09/29/2024, Expires: 09/29/2025 [facility] Work Phone: Comment on above: Expected: 09/29/2024 , Expires: 09/29/2025 Start: 09-23-2024 End: 09-23-2024 Patient encounter procedure 09/23/2024 8:40 AM EDT Routine Office Visit OB/Gynecology [address] [place] [address] Melissa Sanderson MD [address] [place] [address] 37 week appointment OB/Gynecology Comment on above: 37 week appointment Start: 09-16-2024 End: 09-16-2024 Patient encounter procedure 09/16/2024 2:50 PM EDT Routine Office Visit OB/Gynecology [address] [place] [address] Melissa Sanderson MD [address] [place] [address] OB OB/Gynecology Comment on above: OB Start: 09-16-2024 End: 09-16-2024 Patient encounter procedure 09/16/2024 9:40 AM EDT Routine Office Visit OB/Gynecology [address] [place] [address] Melissa Sanderson MD [address] [place] [address] OB OB/Gynecology Comment on above: OB Start: 09-02-2024 End: 09-02-2024 Patient encounter procedure 09/02/2024 1:40 PM EDT Routine Office Visit OB/Gynecology [address] [place] [address] Melissa Sanderson MD [address] [place] [address] OB OB/Gynecology Comment on above: OB Start: 09-02-2024 End: 09-02-2024 Patient encounter procedure 09/02/2024 9:50 AM EDT Routine Office Visit OB/Gynecology [address] [place] [address] Melissa Sanderson MD [address] [place] [address] OB OB/Gynecology Comment on above: OB Start: 08-24-2024 End: 08-24-2024 Patient encounter procedure 08/24/2024 2:50 PM EDT Routine Office Visit OB/Gynecology [address] [place] [address] Melissa Sanderson MD [address] [place] [address] OB OB/Gynecology Comment on above: OB Start: 08-19-2024 End: 08-19-2024 Patient encounter procedure 08/19/2024 9:40 AM EDT Routine Office Visit OB/Gynecology [address] [place] [address] Melissa Sanderson MD [address] [place] [address] OB OB/Gynecology Comment on above: OB Start: 08-06-2024 End: 08-06-2024 Patient encounter procedure 08/06/2024 1:40 PM EDT Routine Office Visit OB/Gynecology [address] [place] [address] Sreedhar Shields MD [address] [place] [address] Ob OB/Gynecology Comment on above: Ob Start: 08-06-2024 End: 08-06-2024 Patient encounter procedure 08/06/2024 11:10 AM EDT Routine Office Visit OB/Gynecology [address] [place] [address] Sreedhar Shields MD [address] [place] [address] Ob OB/Gynecology Comment on above: Ob Start: 07-31-2024 End: 07-31-2024 ambulatory 07/31/2024 7:30 AM EDT Results Only [place] [facility] [address] [place] [address] 3 hour glucose [facility] Comment on above: 3 hour glucose Start: 07-25-2024 End: 10-24-2024 ANEMIA REFLEX PANEL ANEMIA REFLEX PANEL Lab Routine 24 weeks gestation of ([facility]) Encounter for supervision of other normal in second trimester ([facility]) Expected: 07/25/2024 (Approximate), Expires: 10/24/2024 [facility] Comment on above: Expected: 07/25/2024 (Approximate), Expires: 10/24/2024 Start: 07-25-2024 End: 06-24-2025 GESTATIONAL GLUCOSE SCREEN, 1-HOUR, 50 GRAM, NON-FASTING GESTATIONAL GLUCOSE SCREEN, 1-HOUR, 50 GRAM, NON-FASTING Lab Routine Screening for diabetes mellitus 24 weeks gestation of ([facility]) Expected: 07/25/2024 (Approximate), Expires: 06/24/2025 [facility] Work Phone: Comment on above: Expected: 07/25/2024 (Approximate), Expires: 06/24/2025 Start: 07-25-2024 End: 06-24-2025 SYPHILIS TREPONEMAL W/REFLEX SYPHILIS TREPONEMAL W/REFLEX Lab Routine 24 weeks gestation of ([facility]) Encounter for supervision of other normal in second trimester ([facility]) Expected: 07/25/2024 (Approximate), Expires: 06/24/2025 [facility] Comment on above: Expected: 07/25/2024 (Approximate), Expires: 06/24/2025 Start: 07-25-2024 End: 10-24-2024 TYPE + SCREEN TYPE + SCREEN Blood Bank Routine 24 weeks gestation of (HCC) Encounter for supervision of other normal in second trimester (HCC) Expected: 07/25/2024 (Approximate), Expires: 10/24/2024 [facility] Comment on above: Expected: 07/25/2024 (Approximate), Expires: 10/24/2024 Start: 07-23-2024 End: 07-23-2024 Patient encounter procedure 07/23/2024 8:10 AM EDT Routine Office Visit OB/Gynecology [address] [place] [address] Melissa Sanderson MD [address] [place] [address] OB Routine OB/Gynecology Comment on above: OB Routine Start: 06-24-2024 End: 06-24-2024 Patient encounter procedure 06/24/2024 4:20 PM EDT Routine Office Visit OB/Gynecology [address] [place] [address] Melissa Sanderson MD [address] [place] [address] OB Routine OB/Gynecology Comment on above: OB Routine Start: 05-26-2024 End: 05-26-2024 Patient encounter procedure Maternal Medicine Comment on above: Anatomy Anatomy/OB Start: 04-30-2024 End: 04-30-2024 Patient encounter procedure 04/30/2024 4:20 PM EDT Routine Office Visit OB/Gynecology [address] [place] [address] Melissa Sanderson MD [address] [place] [address] OB OB/Gynecology Comment on above: OB Start: 04-02-2024 End: 04-02-2024 Patient encounter procedure 04/02/2024 2:50 PM EST Routine Office Visit OB/Gynecology [address] [place] [address] Nazanin Beckwith MD [address] [place] [address] Nuchal /OB OB/Gynecology Comment on above: Nuchal /OB Start: 04-02-2024 End: 07-02-2024 Chromosome 21 trisomy [Presence] in Blood or Tissue by Cytogenetics [facility] Work Phone: Comment on above: Expected: 04/02/2024 , Expires: 07/02/2024 Start: 03-31-2024 End: 03-31-2024 Patient encounter procedure 03/31/2024 3:30 PM EST Routine Office Visit Maternal Medicine [address] [place] [address] [facility]aternal Medicine Comment on above: Nuchal Start: 03-08-2024 Covid-19 Vaccine () Covid-19 Vaccine () [facility] Comment on above: Postponed from 10/12 (Declined at this time) Start: 03-02-2024 End: 06-01-2024 ANEMIA REFLEX PANEL ANEMIA REFLEX PANEL Lab Routine with uncertain dates in first trimester Expected: 03/02/2024, Expires: 06/01/2024 [facility] Work Phone: Comment on above: Expected: 03/02/2024 , Expires: 06/01/2024 Start: 03-02-2024 End: 06-01-2024 Hemoglobin A1c in Blood HEMOGLOBIN A1C Lab Routine with uncertain dates in first trimester Expected: 03/02/2024, Expires: 06/01/2024 [facility] Comment on above: Expected: 03/02/2024 , Expires: 06/01/2024 Start: 03-02-2024 End: 06-01-2024 HEMOGLOBIN EVALUATION CASCADE HEMOGLOBIN EVALUATION CASCADE Lab Routine Supervision of other normal Expected: 03/02/2024, Expires: 06/01/2024 [facility] Comment on above: Expected: 03/02/2024 , Expires: 06/01/2024 Start: 03-02-2024 End: 06-01-2024 Hepatitis B virus surface Ag [Presence] in Serum HEPATITIS B SURFACE ANTIGEN Lab Routine with uncertain dates in first trimester Expected: 03/02/2024, Expires: 06/01/2024 [facility] Comment on above: Expected: 03/02/2024 , Expires: 06/01/2024 Start: 03-02-2024 End: 06-01-2024 Hepatitis C virus Ab [Presence] in Serum HEPATITIS C ANTIBODY IA WITH CONFIRMATION Lab Routine with uncertain dates in first trimester Expected: 03/02/2024, Expires: 06/01/2024 [facility] Comment on above: Expected: 03/02/2024 , Expires: 06/01/2024 Start: 03-02-2024 End: 06-01-2024 HIV 1+2 Ab [Presence] in Serum or Plasma by Immunoassay HIV 1/2 COMBO WITH REFLEX TO DIFFERENTIATION Lab Routine with uncertain dates in first trimester Expected: 03/02/2024, Expires: 06/01/2024 [facility] Comment on above: Expected: 03/02/2024 , Expires: 06/01/2024 Start: 03-02-2024 End: 03-02-2025 OBSTETRIC ULTRASOUND WHI OBSTETRIC ULTRASOUND WHI Anc Imaging Routine with uncertain dates in first trimester Expected: 03/02/2024, Expires: 03/02/2025 [facility] Comment on above: Expected: 03/02/2024 , Expires: 03/02/2025 Start: 03-02-2024 End: 06-01-2024 RUBELLA IGG ANTIBODY RUBELLA IGG ANTIBODY Lab Routine with uncertain dates in first trimester Expected: 03/02/2024, Expires: 06/01/2024 [facility] Comment on above: Expected: 03/02/2024 , Expires: 06/01/2024 Start: 03-02-2024 End: 06-01-2024 SYPHILIS TREPONEMAL W/REFLEX SYPHILIS TREPONEMAL W/REFLEX Lab Routine with uncertain dates in first trimester Expected: 03/02/2024, Expires: 06/01/2024 [facility] Comment on above: Expected: 03/02/2024 , Expires: 06/01/2024 Start: 03-02-2024 End: 06-01-2024 TYPE + SCREEN TYPE + SCREEN Blood Bank Routine with uncertain dates in first trimester Expected: 03/02/2024, Expires: 06/01/2024 [facility] Comment on above: Expected: 03/02/2024 , Expires: 06/01/2024 Start: 11-15-2023 End: 11-15-2023 ambulatory 11/15/2023 8:30 AM EDT Procedure OB/Gynecology [address] [place] [address] Dyspareunia in female [N94.10] OB/Gynecology Comment on above: Dyspareunia in femal e [N94.10] Start: 11-07-2023 End: 11-07-2023 Patient encounter procedure 11/07/2023 3:15 PM EDT Office Visit OB/Gynecology [address] [place] [address] Rubin Davila APRN.HELP DESK ASSOCIATE [address] [place] [address] Pelvic pain OB/Gynecology Comment on above: Pelvic pain Start: 11-07-2023 End: 11-06-2024 US Pelvis PELVIC US [facility] Anc Imaging Routine Dyspareunia in female Expected: 11/07/2023, Expires: 11/06/2024 [facility] Work Phone: Comment on above: Expected: 11/07/2023 , Expires: 11/06/2024 Start: 10-13-2023 Covid-19 Vaccine ( season) Covid-19 Vaccine ( season) [facility] Start: 10-13-2023 Influenza vaccination Influenza Vacc ine (#1) [facility] Start: 09-05-2023 End: 09-05-2023 Nursing evaluation of patient and report 09/05/2023 11:15 AM EDT Nurse Visit Family [facility] [address] [place] [address] Nurse, Ne [address] [place] [address] PPD read Family Medicine [facility] Comment on above: PPD read Start: 09-02-2023 End: 09-02-2023 Nursing evaluation of patient and report 09/02/2023 3:45 PM EDT Nurse Visit [facility] [address] [place] [id number] Nurse, Ne [address] [place] [address] PPD [facility] Comment on above: PPD Start: 02-11-2023 Behavioral Health Screening Behavioral Health Screening [facility] Start: 10-12-2022 Covid-19 Vaccine () Covid-19 Vaccine () [facility] Start: 10-12-2022 Influenza vaccination C [facility] Start: 09-11-2022 Adult depression screening assessment DEPRESSION SCREENING [facility] Start: 09-11-2022 COVID-19 VACCINE (#1) COVID-19 VACCI NE (#1) [facility] Comment on above: Postponed from 12/15 (Declined at this time) Start: 09-11-2022 HEPATITIS C SCREENING HEPATITIS C [facility] Comment on above: Postponed from 06/14 (Declined at this time) Start: 09-11-2022 MENINGOCOCCAL B: Consider based on risk (1 of 2 - Risk Bexsero 2-dose series) MENINGOCOCCAL B: Consider based on risk (1 of 2 - Risk Bexsero 2-dose series) [facility] Comment on above: Postponed from 06/14 (Declined at this time) Start: 09-11-2022 PAP TESTING PAP TESTING [facility] Comment on above: Postponed from 08/20 (Declined at this time) Start: 08-10-2022 Influenza vaccination INFLUENZA (#1) [facility] Comment on above: Postponed from 10/12 (Declined at this time) Start: 08-06-2022 End: 10-06-2022 Amylase [Enzymatic activity/volume] in Serum or Plasma AMYLASE BLD Lab Routine Acute pancreatitis, unspecified complication status, unspecified pancreatitis type Expected: 08/06/2022, Expires: 10/06/2022 [facility] Work Phone: Comment on above: Expected: 08/06/2022 , Expires: 10/06/2022 Start: 08-06-2022 End: 10-06-2022 Lipase [Enzymatic activity/volume] in Serum or Plasma LIPASE BLD Lab Routine Acute pancreatitis, unspecified complication status, unspecified pancreatitis type Expected: 08/06/2022, Expires: 10/06/2022 [facility] Work Phone: Comment on above: Expected: 08/06/2022 , Expires: 10/06/2022 Start: 05-22-2022 COVID-19 VACCINE (3 - Booster for Pfizer series) COVID-19 VACCINE (3 - Booster for Pfizer series) [facility] Start: 05-22-2022 COVID-19 VACCINE (3 - Pfizer series) COVID-19 VACCINE (3 - Pfizer series) [facility] Start: 03-21-2022 COVID-19 VACCINE (2 - Pfizer series) COVID-19 VACCINE (2 - Pfizer series) [facility] Start: 02-11-2022 DEPRESSION ASSESSMENT DEPRESSION ASS ESSMENT [facility] Start: 11-27-2021 End: 12-11-2021 Influenza virus A and B RNA and SARS-CoV-2 (COVID-19) N gene panel - Respiratory specimen by JOSE with probe detection COVID WITH FLUA+B, ROUTINE Microbiology Routine Sore throat At increased risk of exposure to COVID-19 virus Expected: 11/27/2021, Expires: 12/11/2021 [facility] Work Phone: Comment on above: Expected: 11/27/2021 , Expires: 12/11/2021 Start: 10-12-2021 Influenza vaccination C [facility] Start: 09-11-2021 End: 11-11-2021 25-hydroxyvitamin D3 [Mass/volume] in Serum or Plasma [facility] Work Phone: Comment on above: Expected: 09/11/2021 , Expires: 11/11/2021 Start: 09-11-2021 End: 11-11-2021 CBC W Auto Differential panel - Blood [facility] Work Phone: Comment on above: Expected: 09/11/2021 , Expires: 11/11/2021 Start: 09-11-2021 End: 11-11-2021 Cobalamin (Vitamin B12) [Mass/volume] in Serum or Plasma [facility] Work Phone: Comment on above: Expected: 09/11/2021 , Expires: 11/11/2021 Start: 09-11-2021 End: 11-11-2021 Comprehensive metabolic 2000 panel - Serum or Plasma [facility] Work Phone: Comment on above: Expected: 09/11/2021 , Expires: 11/11/2021 Start: 09-11-2021 End: 11-11-2021 Thyrotropin [Units/volume] in Serum or Plasma [facility] Work Phone: Comment on above: Expected: 09/11/2021 , Expires: 11/11/2021 Start: 08-20-2021 PAP TESTING PAP TESTING [facility] Start: 07-08-2021 Adult depression screening assessment DEPRESSION SCREENING [facility] Start: 02-11-2021 DEPRESSION ASSESSMENT DEPRESSION ASS ESSMENT [facility] Start: 08-21-2019 CHLAMYDIA SCREENING (18-24) CHLAMYDIA SCREENING (18-24) [facility] Start: 08-21-2019 GC (GONORRHEA) SCREENING (18-24) GC (GONORRHEA) SCREENING (18-24) [facility] Start: 06-15-2015 Anxiety Screening Anxiety Screening [facility] Start: 06-15-2015 Depression Screening Depression Scre ening [facility] Start: 06-15-2015 HEPATITIS C SCREENING HEPATITIS C [facility] Start: 06-15-2015 Hepatitis C screening Hepatitis C [facility] Start: 06-15-2011 PEDS TO ADULT TRANSITION ANNUAL ASSESSMENT PEDS TO ADULT TRANSITION ANNUAL ASSESSMENT [facility] Start: 2009 PEDS TO ADULT TRANSITION INITIAL DISCUSSION PEDS TO ADULT TRANSITION INITIAL DISCUSSION [facility] Start: 06-15-2007 MENINGOCOCCAL B: Consider based on risk (1 of 2 - Risk Bexsero 2-dose series) MENINGOCOCCAL B: Consider based on risk (1 of 2 - Risk Bexsero 2-dose series) [facility] Start: 2002 COVID-19 VACCINE (1) COVID-19 VACCIN E (1) [facility] Bacteria identified in Urine by Culture BACTERIAL CULTURE, URINE Microbiology Routine with uncertain dates in first trimester 03/02/2024 9:34 AM [facility] BACTERIAL VAGINOSIS NAAT BACTERIAL VAGINOSIS NAAT Lab Routine with uncertain dates in first trimester 03/02/2024 9:34 AM [facility] NORMAN/TRICHOMONAS NAAT NORMAN/TRICHOMONAS NAAT Lab Routine with uncertain dates in first trimester 03/02/2024 9:34 AM [facility] Chlamydia trachomatis+Neisseria gonorrhoeae DNA [Presence] in Unspecified specimen by JOSE with probe detection GONORRHEA/CHLAMYDIA NAAT Lab Routine with uncertain dates in first trimester 03/02/2024 9:34 AM [facility] ECG COMPLETE ECG COMPLETE ECG Routine Rapid heartbeat Palpitations Ordered: 06/06/2023 [facility] Work Phone: Comment on above: Ordered: 06/06/2023 OUTSIDE VENDOR CARDI AC OUTPATIENT EVENT RECORDER OUTSIDE VENDOR CARDIAC OUTPATIENT EVENT RECORDER Holter Routine Rapid heartbeat Palpitations VERENICE (generalized anxiety disorder) Ordered: 06/19/2023 [facility] Work Phone: Comment on above: Ordered: 06/19/2023 PAP TEST PAP TEST Lab Rou norberto Special screening examination for human papillomavirus (HPV) Screening for cervical cancer Gynecologic exam normal 04/25/2022 11:47 AM EDT [facility] Work Phone: Patient Education ED Flank Pain, Uncertain Cause [facility] Work Phone: Patient referral [facility] Work Phone: PPD (TB INTRADERMAL 44159) B/O PPD (TB INTRADERMAL 81538) B/O Procedures Routine Screening examination for pulmonary tuberculosis Ordered: 02/23/2022 [facility] Work Phone: Comment on above: Ordered: 02/23/2022 PPD (TB INTRADERMAL 70815) B/O PPD (TB INTRADERMAL 93916) B/O Procedures Routine Screening examination for pulmonary tuberculosis Ordered: 03/05/2022 [facility] Work Phone: Comment on above: Ordered: 03/05/2022 PPD (TB INTRADERMAL 06998) B/O PPD (TB INTRADERMAL 80405) B/O Procedures Routine Screening-pulmonary TB Ordered: 08/20/2023 [facility] Work Phone: Comment on above: Ordered: 08/20/2023 URINE OB DIP B/O URINE OB DIP B/ O Lab Routine Encounter for supervision of other normal in third trimester (HCC) Anemia complicating , third trimester (HCC) History of delivery by vacuum extraction, currently (HCC) Ordered: 09/23/2024 [facility] Work Phone: Comment on above: Ordered: 09/23/2024 End: 09-05-2023 US ABD RIGHT UPPER QUADRANT US ABD RIGHT UPPER QUADRANT Radiology Routine Acute pancreatitis, unspecified complication status, unspecified pancreatitis type 1 Occurrences starting 08/06/2022 until 09/05/2023 [facility] Work Phone: Comment on above: 1 Occurrences starti ng 08/06/2022 until 09/05/2023 End: 09-05-2023 Us transvaginal US FEMALE PELVIS TRANSVAG Radiology Routine Pelvic pain in female 1 Occurrences starting 08/06/2022 until 09/05/2023 [facility] Work Phone: Comment on above: 1 Occurrences starti ng 08/06/2022 until 09/05/2023 [facility] Immunizations Immunization Date Immunization Notes Care Provider Fa [facility] 07-23-2024 RHO(D) immune globul in- IV or IM Melissa Ledesma MD Work Phone: [facility] 07-23-2024 tetanus toxoid, redu tiny diphtheria toxoid, and acellular pertussis vaccine, adsorbed Melissa Ledesma MD Work Phone: [facility] 10-18-2023 influenza virus vacc ine, unspecified formulation Melissa Ledesma MD Work Phone: [facility] 09-02-2023 tuberculin skin test ; purified protein derivative solution, intradermal Rubin Davila APRN.CNP Work Phone: [facility] 10-24-2022 influenza virus vacc ine, unspecified formulation Sera Scott MD Work Phone: [facility] 03-27-2022 COVID-19 original vaccine, age 12+ yr, monovalent (PFIZER-BIONTECH - BAER TOP) Ne Nurse Work Phone: [facility] Work Phone: 03-13-2022 influenza, injectabl e, quadrivalent, contains preservative Mi Nurse Work Phone: [facility] Work Phone: 03-13-2022 influenza, injectabl e, quadrivalent, preservative free Us 2 Work Phone: [facility] 03-13-2022 influenza virus vacc ine, unspecified formulation Us 2 Work Phone: [facility] 03-12-2022 tuberculin skin test ; purified protein derivative solution, intradermal Rubin Haury RAILWAY STATION MANAGER.HELP DESK ASSOCIATE Work Phone: [facility] 02-28-2022 COVID-19 original vaccine, age 12+ yr, monovalent (PFIZER-BIONTECH - BAER TOP) Ne Nurse Work Phone: [facility] Work Phone: 02-28-2022 tuberculin skin test ; purified protein derivative solution, intradermal Rubin Haury RAILWAY STATION MANAGER.HELP DESK ASSOCIATE Work Phone: [facility] 05-09-2020 Human Papillomavirus 9-valent vaccine Sera Scott MD Work Phone: [facility] 03-06-2019 measles, mumps and rubella virus vaccine [facility] 01-13-2019 RHO(D) immune globul in- IV or IM Sera Scott MD Work Phone: [facility] Work Phone: 01-13-2019 tetanus toxoid, redu tiny diphtheria toxoid, and acellular pertussis vaccine, adsorbed Sera Scott MD Work Phone: [facility] Work Phone: 01-09-2019 tetanus toxoid, redu tiny diphtheria toxoid, and acellular pertussis vaccine, adsorbed [facility] 12-03-2018 Influenza virus vaccine [facility] 12-03-2018 influenza, injectabl e, quadrivalent, contains preservative Sera Scott MD Work Phone: [facility] 12-07-2016 influenza, injectabl e, quadrivalent, contains preservative Sera Scott MD Work Phone: [facility] 01-05-2015 influenza, injectabl e, quadrivalent, contains preservative Sera Scott MD Work Phone: [facility] 01-05-2015 influenza, seasonal, injectable Sera Scott MD Work Phone: [facility] Work Phone: 02-01-2014 influenza, injectabl e, quadrivalent, preservative free Sera Scott MD Work Phone: [facility] Work Phone: 02-01-2014 meningococcal polysaccharide (groups A, C, Y and W-135) diphtheria toxoid conjugate vaccine (MCV4P) Sera Scott MD Work Phone: [facility] Work Phone: 11-14-2012 influenza virus vacc ine, unspecified formulation Sera Scott MD Work Phone: [facility] Work Phone: 06-03-2012 human papilloma viru s vaccine, quadrivalent Sera Scott MD Work Phone: [facility] Work Phone: 06-03-2012 varicella virus vaccine Anthony Scott MD Work Phone: [facility] Work Phone: 01-22-2012 human papilloma viru s vaccine, quadrivalent Sera Scott MD Work Phone: [facility] Work Phone: 11-14-2011 human papilloma viru s vaccine, quadrivalent Sera Scott MD Work Phone: [facility] Work Phone: 11-14-2011 influenza virus vacc ine, unspecified formulation Sera Scott MD Work Phone: [facility] Work Phone: 08-08-2010 Meningococcal, MCV4, unspecified conjugate formulation(groups A, C, Y and W-135) Sera Scott MD Work Phone: [facility] 08-08-2010 tetanus toxoid, redu tiny diphtheria toxoid, and acellular pertussis vaccine, adsorbed Sera Scott MD Work Phone: [facility] 06-02-2003 diphtheria, tetanus toxoids and acellular pertussis vaccine Sera Scott MD Work Phone: [facility] Work Phone: 06-02-2003 measles, mumps and rubella virus vaccine Sera Scott MD Work Phone: [facility] Work Phone: 06-02-2003 poliovirus vaccine, inactivated Sera Scott MD Work Phone: [facility] Work Phone: 10-25-1998 diphtheria, tetanus toxoids and acellular pertussis vaccine Sera Scott MD Work Phone: [facility] Work Phone: 10-25-1998 haemophilus influenz ae type b vaccine, HbOC conjugate Sera Scott MD Work Phone: [facility] Work Phone: 07-07-1998 measles, mumps and rubella virus vaccine Sera Scott MD Work Phone: [facility] Work Phone: 07-07-1998 trivalent poliovirus vaccine, live, oral Sera Scott MD Work Phone: [facility] Work Phone: 07-07-1998 varicella virus vaccine Anthony Scott MD Work Phone: [facility] Work Phone: 1997 diphtheria, tetanus toxoids and acellular pertussis vaccine Sera Scott MD Work Phone: [facility] Work Phone: 1997 haemophilus influenz ae type b vaccine, HbOC conjugate Sera Scott MD Work Phone: [facility] Work Phone: 1997 hepatitis B vaccine, pediatric or pediatric/adolescent dosage Sera Scott MD Work Phone: [facility] Work Phone: 1997 diphtheria, tetanus toxoids and acellular pertussis vaccine Sera Scott MD Work Phone: [facility] Work Phone: 1997 haemophilus influenz ae type b vaccine, HbOC conjugate Sera Scott MD Work Phone: [facility] Work Phone: 1997 poliovirus vaccine, inactivated Sera Scott MD Work Phone: [facility] Work Phone: 1997 diphtheria, tetanus toxoids and acellular pertussis vaccine Sera Scott MD Work Phone: [facility] Work Phone: 1997 haemophilus influenz ae type b vaccine, HbOC conjugate Sera Scott MD Work Phone: [facility] Work Phone: 1997 poliovirus vaccine, inactivated Sera Scott MD Work Phone: [facility] Work Phone: 1997 hepatitis B vaccine, pediatric or pediatric/adolescent dosage Sera Scott MD Work Phone: [facility] Work Phone: 1997 hepatitis B vaccine, pediatric or pediatric/adolescent dosage Sera Scott MD Work Phone: [facility] Work Phone: Payers Date Payer Category Payer Self-pay [id number] 2011 Medicaid [facility] MED[facility] [id number] 2011-Present [phone] [address] [place] [address] Medicaid [id number] 2011 Medicaid [id number] 2011 Unknown [id number] 2011 Unknown [id number] 1997 Unknown [id number] Unknown Unknown [id number] Unknown [id number] Unknown [id number] Unknown [id number] Unknown [id number] Unknown [id number] Unknown [id number] Unknown [id number] Unknown [id number] Unknown [id number] Unknown [id number] Unknown [id number] Social History Date Type Detail Facility Start: 03-29-2016 End: 11-27-2021 Tobacco smoking status NHIS Never smoked tobacco [facility] Start: 03-29-2016 End: 11-27-2021 Tobacco use and exposure Smokeless tobacco non-user [facility] Start: 10-23-2020 End: 06-24-2024 Alcohol intake Current non-drinker of alcohol (finding) [facility] Start: 07-08-2020 End: 02-21-2022 History SDOH Alcohol Frequency 1 [facility] Start: 07-08-2020 End: 02-21-2022 History SDOH Alcohol Std Drinks 98 [facility] Start: 07-08-2020 End: 02-21-2022 History SDOH Social Connections Phone 5 [facility] Start: 07-08-2020 End: 09-10-2021 History SDOH Social Connections Get Together 4 [facility] Start: 07-08-2020 End: 02-21-2022 History SDOH Social Connections Membership 2 [facility] Start: 07-08-2020 History SDOH Social Connections Living 8 [facility] Start: 07-08-2020 End: 02-21-2022 History SDOH Physical Activity DPW 3 [facility] Start: 07-08-2020 History SDOH Physica l Activity MPS 6 [facility] Start: 07-08-2020 Education 15 [facility] Start: 1997 Sex Assigned At Female C [facility] Start: 03-04-2021 End: 12-21-2021 Exposure to SARS-CoV-2 (event) Not sure [facility] Start: 09-10-2021 History SDOH Social Connections Living 7 [facility] Start: 02-21-2022 History SDOH Alcohol Std Drinks 0 [facility] Start: 07-25-2022 End: 02-19-2023 Tobacco smoking status NHIS Unknown if ever smoked [facility] Start: 03-05-2019 None [facility] Start: 12-11-2018 Non-smoker [facility] Start: 02-21-2022 End: 07-23-2024 History of Social function [facility] Start: 02-21-2022 End: 07-23-2024 Social connection and isolation panel [facility] Do you belong to any clubs or organizations such as scientology groups, unions, fraternal or athletic groups, or school groups? No [facility] Start: 01-13-2012 How often do you att end meetings of the clubs or organizations you belong to? Patient refused [facility] Are you now , , , , never or living with a partner? Refused [facility] How often to you hav e a drink containing alcohol? Never [facility] Do you feel stress - tense, restless, nervous, or anxious, or unable to sleep at night because your mind is troubled all the time - these days [OSQ] Not at all [facility] (I/We) worried rosa elena er (my/our) food would run out before (I/we) got money to buy more. Never true [facility] Start: 04-24-2021 Gender identity Identifies as female gender (finding) [facility] Are you now , , , , never or living with a partner? Living with partner [facility] Do you feel stress - tense, restless, nervous, or anxious, or unable to sleep at night because your mind is troubled all the time - these days [OSQ] Only a little [facility] Are you now , , , , never or living with a partner? Never [facility] How often to you hav e a drink containing alcohol? Monthly or less [facility] How many standard drinks containing alcohol do you have on a typical day? 1 or 2 [facility] How hard is it for y ou to pay for the very basics like food, housing, medical care, and heating Not very hard [facility] Do you feel stress - tense, restless, nervous, or anxious, or unable to sleep at night because your mind is troubled all the time - these days [OSQ] To some extent [facility] Start: 01-19-2024 [facility] Start: 02-27-2024 Sexual orientation Heterosexual (maral dacosta) [facility] NEGATED: Highlighted row [facility] Goals Date Patient Goal Desired Activity /State Personal health goal Functional Status Date Assessment Result Facility 03-05-2014 Are you deaf, or do you have serious difficulty hearing No 03/05/2014 2:57 PM Mita Sellers RN No [facility] 03-05-2014 Are you blind, or do you have serious difficulty seeing, even when wearing glasses No 03/05/2014 2:57 PM Mita Sellers RN No [facility] 03-05-2014 Do you have serious difficulty walking or climbing stairs No 03/05/2014 2:57 PM Mita Sellers RN No [facility] 03-05-2014 Do you have difficul ty dressing or bathing No 03/05/2014 2:57 PM Mita Sellers RN No [facility] 03-05-2014 Because of a physica l, mental, or emotional condition, do you have difficulty doing errands alone such as visiting a physician's office or shopping No 03/05/2014 2:57 PM Mita Sellers RN No [facility] Mental Status Date Assessment Result Facility 03-05-2014 Because of a physica l, mental, or emotional condition, do you have serious difficulty concentrating, remembering, or making decisions No 03/05/2014 2:57 PM Mita Sellers RN No [facility] Clinical Notes 01-14-2019 to 09-29-2024 Quick Notes [...] was discussed with the patient or authorized dental detail representative. The patient or authorized dental detail representative has agreed to proceed with the sensitive examination. @ 38.2 weeks Assessment & Plan Encounter for supervision of other normal in third trimester (HCC) Orders: URINE OB DIP B/O Anemia complicating , third trimester ([facility]) Orders: URINE OB DIP B/O History of delivery by vacuum extraction, currently ([facility]) Orders: URINE OB DIP B/O Uterine size-date discrepancy, third trimester ([facility]) Orders: OBSTETRIC ULTRASOUND WHI; Future 38 weeks gestation of ([facility]) Kick counts and labor reviewed RTO weekly Orders: URINE OB DIP B/O Melissa Martino MD [facility] 09-29-2024 Miscellaneous Notes DM-Pt doing well. Denies vaginal Bleeding, Leaking fluid, or regular Contractions. Pt reports good movement Physical Exam: Gen: female in no apparent distress Abd: soft, Gravid. Non tender to palpation. See flow sheet Participation of a fellow, resident, medical student, or advanced practice provider student in performing the sensitive examination was discussed with the patient or authorized dental detail representative. The patient or authorized dental detail representative has agreed to proceed with the sensitive examination. @ 38.2 weeks Assessment & Plan Encounter for supervision of other normal in third trimester (HCC) Orders: URINE OB DIP B/O Anemia complicating , third trimester ([facility]) Orders: URINE OB DIP B/O History of delivery by vacuum extraction, currently ([facility]) Orders: URINE OB DIP B/O Uterine size-date discrepancy, third trimester ([facility]) Orders: OBSTETRIC ULTRASOUND WHI; Future 38 weeks gestation of ([facility]) Kick counts and labor reviewed RTO weekly Orders: URINE OB DIP B/O Melissa Martino MD documented in this encounter [facility] 09-29-2024 Instructions Franc Hyatt MA - 09/29/2024 2:19 PM EDT SEQUENTIAL SCREENINGS The [facility] offers sequential screenings for women who are [...] It will require an appointment with our office machine technician. This is not an ultrasound performed [...] the above symptoms, contact our office at [phone] and ask to speak with a nurse. After hours, you can call doctors registry at [phone] OR call [facility] at [phone] and ask to have the doctor sales solutions representative paged. If you consider this an emergency, dial 9-1-4 or go to your nearest emergency department. NEED HELP? Are you dealing with a violent or abusive relationship? Are you a victim of rape or sexual assult? Call [facility] ([place]) 24 hour Crisis Hotline: 439.977.6022 or 912-233-8814. MANUAL Your Guide to a Healthy manual is now on-line. Visit [email or web address] [email or web address] to download your free copy documented in this encounter [facility] 09-28-2024 Note HNO ID: [id number] Author: ELTON BURKETT, ? Service: ? Author Type: Patient Stop Attacher Type: Progress Notes Filed: 09/28/2024 07:42 Note Text: POPULATION HEALTH NAVIGATION OUTREACH Action/FYI No outreach done added pediatriican via note Reason for Outreach Medicaid OB/Peds Care Gaps due: to PCP Visit Patient Contacted: Unable or unnecessary to reach patient: Emmalena neighborhood planner added Navigation Signature: Elton Burkett Population Health Navigator September 28, 2024 7:42 AM [facility] 09-28-2024 History of Presen t illness Narrative POPULATION HEALTH NAVIGATION OUTREACH Action/ No outreach done added pediatriican via note Reason for Outreach Medicaid OB/Peds Care Gaps due: to PCP Visit Patient Contacted: Unable or unnecessary to reach patient: neighborhood planner added Navigation Signature: Elton Burkett Population Health Navigator September 28, 2024 7:42 AM documented in this encounter [facility] 09-28-2024 Note Patient Outreach (NE TNAV) LOUANN CLEMENTS ([id number]) 1995 F Date Time Provider Department 09/28/24 ELTON BURKETT During your visit today, we recorded the following information about you: Elton Burkett 09/28/2024 7:42 AM Signed POPULATION HEALTH NAVIGATION OUTREACH Action/ No outreach done added pediatriican via note Reason for Outreach Medicaid OB/Peds Care Gaps due: to PCP Visit Patient Contacted: Unable or unnecessary to reach patient: Emmalena neighborhood planner added Navigation Signature: Elton Burkett Population Health [...] Encounter Status:Closed by ELTON BURKETT on 09/28/24 [facility] 09-23-2024 Progress note Formatting of t his note might be different from the original. DM-Pt doing well. Denies vaginal Bleeding, Leaking fluid, or regular Contractions. Pt reports good movement Physical Exam: Gen: female in no apparent distress Abd: soft, Gravid. Non tender to palpation. See flow sheet @ 37.3 weeks Assessment & Plan Encounter for supervision of other normal in third trimester ([facility]) Orders: URINE OB DIP B/O Anemia complicating , third trimester ([facility]) Continue PO iron Orders: URINE OB DIP B/O History of delivery by vacuum extraction, currently ([facility]) Orders: URINE OB DIP B/O 37 weeks gestation of ([facility]) Kick counts and labor reviewed RTO 1 week Melissa Martino MD [facility] 08-13-2025 Miscellaneous Notes DM-Pt doing well. Denies vaginal Bleeding, Leaking fluid, or regular Contractions. Pt reports good movement Physical Exam: Gen: female in no apparent distress Abd: soft, Gravid. Non tender to palpation. See flow sheet @ 37.3 weeks Assessment & Plan Encounter for supervision of other normal in third trimester ([facility]) Orders: URINE OB DIP B/O Anemia complicating , third trimester ([facility]) Continue PO iron Orders: URINE OB DIP B/O History of delivery by vacuum extraction, currently ([facility]) Orders: URINE OB DIP B/O 37 weeks gestation of ([facility]) Kick counts and labor reviewed RTO 1 week Melissa Martino MD documented in this encounter [facility] 09-23-2024 Instructions Franc Hyatt MA - 09/23/2024 8:30 AM EDT SEQUENTIAL SCREENINGS The [facility] offers sequential screenings for women who are [...] It will require an appointment with our office machine technician. This is not an ultrasound performed [...] the above symptoms, contact our office at [phone] and ask to speak with a nurse. After hours, you can call doctors registry at [phone] OR call [facility] at [phone] and ask to have the doctor sales solutions representative paged. If you consider this an emergency, dial 3-1-3 or go to your nearest emergency department. NEED HELP? Are you dealing with a violent or abusive relationship? Are you a victim of rape or sexual assult? Call [facility] ([place]) 24 hour Crisis Hotline: 448.243.2432 or 520-797-1229. MANUAL Your Guide to a Healthy manual is now on-line. Visit [email or web address] [email or web address] to download your free copy documented in this encounter [facility] 09-02-2024 Progress note Formatting of t his note might be different from the original. DM-Pt doing well. Denies vaginal Bleeding, Leaking fluid, or regular Contractions. Pt reports good movement Physical Exam: Gen: female in no apparent distress Abd: soft, Gravid. Non tender to palpation. See flow sheet @ 34.3 weeks Assessment & Plan Encounter for supervision of other normal in third trimester ([facility]) Orders: URINE OB DIP B/O Anemia complicating , third trimester ([facility]) Continue PO iron Orders: URINE OB DIP B/O History of delivery by vacuum extraction, currently ([facility]) Orders: URINE OB DIP B/O 34 weeks gestation of ([facility]) Kick counts reviewed RTO 2 weeks Orders: URINE OB DIP B/O Melissa Martino MD [facility] 09-02-2024 Miscellaneous Notes DM-Pt doing well. Denies vaginal Bleeding, Leaking fluid, or regular Contractions. Pt reports good movement Physical Exam: Gen: female in no apparent distress Abd: soft, Gravid. Non tender to palpation. See flow sheet @ 34.3 weeks Assessment & Plan Encounter for supervision of other normal in third trimester ([facility]) Orders: URINE OB DIP B/O Anemia complicating , third trimester ([facility]) Continue PO iron Orders: URINE OB DIP B/O History of delivery by vacuum extraction, currently ([facility]) Orders: URINE OB DIP B/O 34 weeks gestation of ([facility]) Dudleymart orta reviewed RTO 2 weeks Orders: URINE OB DIP B/O Melissa Martino MD documented in this encounter [facility] 09-02-2024 Instructions Franc Hyatt MA - 09/02/2024 1:22 PM EDT SEQUENTIAL SCREENINGS The [facility] offers sequential screenings for women who are [...] It will require an appointment with our office machine technician. This is not an ultrasound performed [...] the above symptoms, contact our office at [phone] and ask to speak with a nurse. After hours, you can call doctors registry at [phone] OR call [facility] at [phone] and ask to have the doctor sales solutions representative paged. If you consider this an emergency, dial -2 or go to your nearest emergency department. NEED HELP? Are you dealing with a violent or abusive relationship? Are you a victim of rape or sexual assult? Call [facility] ([facility] 24 hour Crisis Hotline: 825.219.2985 or 086-587-8472. MANUAL Your Guide to a Healthy manual is now on-line. Visit [email or web address] [email or web address] to download your free copy documented in this encounter [facility] 08-19-2024 Note HNO ID: [id number] Author: MELISSA SANDERSON MD Service: ? Author [...] reviewed RTO 2 weeks Melissa Martino MD [facility] 08-19-2024 History of Presen t illness [...] Melissa Martino MD documented in this encounter [facility] 08-19-2024 Instructions Nenita Santamaria MA - 08/19/2024 9:34 AM EDT SEQUENTIAL SCREENINGS The [facility] offers sequential screenings for women who are [...] It will require an appointment with our office machine technician. This is not an ultrasound performed [...] the above symptoms, contact our office at [phone] and ask to speak with a nurse. After hours, you can call doctors registry at [phone] OR call [facility] at [phone] and ask to have the doctor sales solutions representative paged. If you consider this an emergency, dial 91-9 or go to your nearest emergency department. NEED HELP? Are you dealing with a violent or abusive relationship? Are you a victim of rape or sexual assult? Call [facility] ([place]) 24 hour Crisis Hotline: 464.837.7036 or 426-670-2103. MANUAL Your Guide to a Healthy manual is now on-line. Visit [email or web address] [email or web address] to download your free copy documented in this encounter [facility] 08-06-2024 Progress note Formatting of t his [...] pnv and asa 30 weeks gestation of ([facility]) Encounter for supervision of other normal in third trimester ([facility]) passed 3 hr gtt, reviewed results Sreedhar Shields M.D. [facility] 08-06-2024 Miscellaneous Notes RR- VB No. LOF No. CTXS No. Movement: present. Other c/o: no Medication list reviewed. SENSITIVE EXAM: Sensitive exam not performed. Physical Exam See Flow Sheet Abd: soft, nontender, gravid Ext: edema: 1+ A/P 30w4d Estimated Date of Delivery: 10/11/24 Assessment & Plan Anemia complicating , third trimester ([facility]) xcont. pnv and asa 30 weeks gestation of ([facility]) Encounter for supervision of other normal in third trimester ([facility]) passed 3 hr gtt, reviewed results Sreedhar Shields M.D. documented in this encounter [facility] 08-06-2024 Instructions Daniela Bajwa MA - 08/06/2024 1:42 PM EDT SEQUENTIAL SCREENINGS The [facility] offers sequential screenings for women who are [...] It will require an appointment with our office machine technician. This is not an ultrasound performed [...] the above symptoms, contact our office at [phone] and ask to speak with a nurse. After hours, you can call doctors registry at [phone] OR call [facility] at [phone] and ask to have the doctor sales solutions representative paged. If you consider this an emergency, dial 9--1 or go to your nearest emergency department. NEED HELP? Are you dealing with a violent or abusive relationship? Are you a victim of rape or sexual assult? Call [facility] ([place]) 24 hour Crisis Hotline: 387.972.7867 or 455-880-7630. MANUAL Your Guide to a Healthy manual is now on-line. Visit [email or web address] [email or web address] to download your free copy documented in this encounter [facility] 08-04-2024 Telephone encounter Note Noted & agree. If symptoms worsen overnight should go to [facility]. Nazanin Beckwith MD [facility] Work Phone: 08-04-2024 Miscellaneous Notes Noted & agree. If symptoms worsen overnight should go to [facility]. Nazanin Beckwith MD 30w2d Spoke with [...] Elvia Lozada RN documented in this encounter [facility] 08-04-2024 Telephone encounter Note 30w2d Spoke with [...] to monitor. Please advise. Elvia Lozada RN [facility] 08-04-2024 Telephone encounter Note 30w2d Left message for patient to call office. Elvia Lozada RN [facility] 07-24-2024 Telephone encounter Note 3rd risk assessment form submitted 07/24/24 Symone Abdi RN [facility] 07-24-2024 Miscellaneous Notes 3rd risk assessment form submitted 07/24/24 Symone Abdi RN documented in this encounter [facility] 07-23-2024 Note HNO ID: [id number] Author: ELVIA LOZADA RN Service: ? Author Type: Registered Nurse Type: Progress Notes Filed: 07/23/2024 09:32 Note Text: The patient is here for an injection of Rhogam. Dose: 300 mcg Amount wasted: none. Route: Intramuscular Site: right upper quadrant gluteus Mill Operator Helper: CSL Behring Lot #: [id number] Expiration Date: 07/31/2026 The date due for the next injection is N/A Patient tolerated injection well. Melissa Ledesma MD present in office at the time of injection. Elvia Lozada RN [facility] 07-23-2024 History of Presen t illness Narrative The patient is here for an injection of Rhogam. Dose: 300 mcg Amount wasted: none. Route: Intramuscular Site: right upper quadrant gluteus Mill Operator Helper: CSL Behring Lot #: [id number] Expiration Date: 07/31/2026 The date due for [...] severely ill: Yes Patient denies history of Guillain-[place] Syndrome (a severe paralytic illness): Yes Tdap Adacel injection was given without incident. See immunizations for details of immunizations administered today. VIS sheet provided: Yes Provider Callie was present in office at time of injection. Franc Hyatt MA documented in this encounter [facility] 07-23-2024 Progress note Formatting of t his note might be different from the original. DM-Pt doing well. Denies vaginal Bleeding, Leaking fluid, or regular Contractions. Pt reports good movement Physical Exam: Gen: female in no apparent distress Abd: soft, Gravid. Non tender to palpation. See flow sheet @ 28.4 weeks Assessment & Plan Encounter for supervision of other normal in third trimester ([facility]) History of delivery by vacuum extraction, currently ([facility]) Rh negative state in antepartum period ([facility]) Orders: RhoD immune globulin 300 mcg injection (RHOPHYLAC) Need for vaccination Orders: TDAP VACCINE, AGE 7+ YR (ADACEL, BOOSTRIX) 28 weeks gestation of ([facility]) RTO 4 wks Orders: RhoD immune globulin 300 mcg injection (RHOPHYLAC) TDAP VACCINE, AGE 7+ YR (ADACEL, BOOSTRIX) Melissa Martino MD [facility] 07-23-2024 Miscellaneous Notes DM-Pt doing well. Denies vaginal Bleeding, Leaking fluid, or regular Contractions. Pt reports good movement Physical Exam: Gen: female in no apparent distress Abd: soft, Gravid. Non tender to palpation. See flow sheet @ 28.4 weeks Assessment & Plan Encounter for supervision of other normal in third trimester ([facility]) History of delivery by vacuum extraction, currently ([facility]) Rh negative state in antepartum period ([facility]) Orders: RhoD immune globulin 300 mcg injection (RHOPHYLAC) Need for vaccination Orders: TDAP VACCINE, AGE 7+ YR (ADACEL, BOOSTRIX) 28 weeks gestation of ([facility]) RTO 4 wks Orders: RhoD immune globulin 300 mcg injection (RHOPHYLAC) TDAP VACCINE, AGE 7+ YR (ADACEL, BOOSTRIX) Melissa Martino MD documented in this encounter [facility] 07-23-2024 Note HNO ID: [id number] Author: FRANC HYATT MA Service: ? Author Type: Mysql Database Administrator Type: Progress Notes Filed: 07/23/2024 09:32 Note [...] severely ill: Yes Patient denies history of Guillain-[place] Syndrome (a severe paralytic illness): Yes Tdap Adacel injection was given without incident. See immunizations for details of immunizations administered today. VIS sheet provided: Yes Provider Callie was present in office at time of injection. Franc Hyatt MA [facility] 07-23-2024 Instructions Franc Hyatt MA - 07/23/2024 8:05 AM EDT SEQUENTIAL SCREENINGS The [facility] offers sequential screenings for women who are [...] It will require an appointment with our office machine technician. This is not an ultrasound performed [...] the above symptoms, contact our office at [phone] and ask to speak with a nurse. After hours, you can call [employer] [facility] at [phone] OR call [facility] at [phone] and ask to have the doctor sales solutions representative paged. If you consider this an emergency, dial 9-1-1 or go to your nearest emergency department. NEED HELP? Are you dealing with a violent or abusive relationship? Are you a victim of rape or sexual assult? Call [facility] ([place]) 24 hour Crisis Hotline: 633.746.7155 or 438-863-5729. MANUAL Your Guide to a Healthy manual is now on-line. Visit [email or web address] [email or web address] to download your free copy documented in this encounter [facility] 06-24-2024 Progress note Formatting of t his [...] + SCREEN ; Future Melissa Martino MD [facility] 06-24-2024 Miscellaneous Notes DM-Pt doing well. Denies [...] Melissa MD Gunner documented in this encounter [facility] 06-24-2024 Instructions Nenita Santamaria MA - 06/24/2024 4:17 PM EDT SEQUENTIAL SCREENINGS The [facility] offers sequential screenings for women who are [...] It will require an appointment with our office machine technician. This is not an ultrasound performed [...] the above symptoms, contact our office at [phone] and ask to speak with a nurse. After hours, you can call doctors registry at [phone] OR call [facility] at [phone] and ask to have the doctor sales solutions representative paged. If you consider this an emergency, dial 9-1-1 or go to your nearest emergency department. NEED HELP? Are you dealing with a violent or abusive relationship? Are you a victim of rape or sexual assult? Call [facility] ([place]) 24 hour Crisis Hotline: 562.593.1169 or 252-406-5063. MANUAL Your Guide to a Healthy manual is now on-line. Visit [email or web address] to download your free copy documented in this encounter [facility] 05-27-2024 Telephone encounter Note 2nd risk assessment form submitted 05/27/24 Symone Abdi RN [facility] 05-27-2024 Miscellaneous Notes 2nd risk assessment form submitted 05/27/24 Symone Abdi RN documented in this encounter [facility] 05-26-2024 Progress note Formatting of t his [...] today Dizziness in reviewed Melissa Martino MD [facility] 05-26-2024 Miscellaneous Notes DM-Pt doing well. Denies [...] History of delivery by vacuum extraction, currently ([facility]) 20 weeks gestation of ([facility]) RTO 4 wks Anatomy us pending today Dizziness in reviewed Melissa Martino MD documented in this encounter [facility] 05-26-2024 Instructions Daniela Bajwa MA - 05/26/2024 3:19 PM EDT SEQUENTIAL SCREENINGS The [facility] offers sequential screenings for women who are [...] It will require an appointment with our office machine technician. This is not an ultrasound performed [...] the above symptoms, contact our office at [phone] and ask to speak with a nurse. After hours, you can call doctors registry at [phone] OR call [facility] at [phone] and ask to have the doctor sales solutions representative paged. If you consider this an emergency, dial or go to your nearest emergency department. NEED HELP? Are you dealing with a violent or abusive relationship? Are you a victim of rape or sexual assult? Call [facility] ([place]) 24 hour Crisis Hotline: 994.799.1190 or 987-419-0181. MANUAL Your Guide to a Healthy manual is now on-line. Visit [email or web address] [email or web address] to download your free copy documented in this encounter [facility] 04-30-2024 Progress note Formatting of t his [...] wks Anatomy us scheduled Melissa Martino MD [facility] 04-30-2024 Miscellaneous Notes DM-Pt doing well. Denies [...] Melissa Martino MD documented in this encounter [facility] 04-30-2024 Instructions Franc Hyatt MA - 04/30/2024 3:53 PM EDT SEQUENTIAL SCREENINGS The [facility] offers sequential screenings for women who are [...] It will require an appointment with our office machine technician. This is not an ultrasound performed [...] the above symptoms, contact our office at [phone] and ask to speak with a nurse. After hours, you can call doctors registry at [phone] OR call [facility] at [phone] and ask to have the doctor sales solutions representative paged. If you consider this an emergency, dial 1-4 or go to your nearest emergency department. NEED HELP? Are you dealing with a violent or abusive relationship? Are you a victim of rape or sexual assult? Call [facility] ([place]) 24 hour Crisis Hotline: 997.852.3496 or 735-943-0808. MANUAL Your Guide to a Healthy manual is now on-line. Visit [email or web address] to download your free copy documented in this encounter [facility] 04-29-2024 Telephone encounter Note agree w/ below; discuss tomorrow. May need to walk around and wear support stockings. EVal if further workup needed at appointment. Sreedhar Shields MD [facility] 04-29-2024 Miscellaneous Notes agree w/ below; discuss [...] lowered Pt to floor. Pt then vomited. [place] weak. Could see again. [place] hot. Afebrile. BP was 115/68. Pt saw [...] Chiquita Cartwright, KATHY documented in this encounter [facility] 04-29-2024 Telephone encounter Note 16w3d Pt woke [...] lowered Pt to floor. Pt then vomited. [place] weak. Could see again. [place] hot. Afebrile. BP was 115/68. Pt saw [...] evaluated. Pt voiced understanding. Chiquita Cartwright RN [facility] 04-02-2024 Progress note Formatting of t his note might be different from the original. KJ - VB No. LOF No. CTXS No. Movement: absent. Other c/o: No. Medication list reviewed. Physical Exam See Flow Sheet Gen: no accute distress, well appearing A/P 12w4d Estimated Date of Delivery: 10/11/24 NT reviewed NIPT ordered Nazanin Beckwith MD [facility] 04-02-2024 Miscellaneous Notes KJ - VB No. LOF No. CTXS No. Movement: absent. Other c/o: No. Medication list reviewed. Physical Exam See Flow Sheet Gen: no accute distress, well appearing A/P 12w4d Estimated Date of Delivery: 10/11/24 NT reviewed NIPT ordered Nazanin Beckwith MD documented in this encounter [facility] 04-02-2024 Progress note Formatting of t his note might be different from the original. Anatomy ultrasound reviewed. No abnormalities identified. Follow up as clinically indicated. Please place copy in ob chart. Sreedhar Shields MD [facility] 04-02-2024 Miscellaneous Notes Anatomy ultrasound reviewed. No abnormalities identified. Follow up as clinically indicated. Please place copy in ob chart. Sreedhar Shields MD documented in this encounter [facility] 04-02-2024 Instructions Melanierhea ElizabethKRISTAL - 04/02/2024 2:54 PM EST SEQUENTIAL SCREENINGS The [facility] offers sequential screenings for women who are [...] It will require an appointment with our office machine technician. This is not an ultrasound performed [...] the above symptoms, contact our office at [phone] and ask to speak with a nurse. After hours, you can call doctors registry at [phone] OR call [facility] at [phone] and ask to have the doctor sales solutions representative paged. If you consider this an emergency, dial 9--1 or go to your nearest emergency department. NEED HELP? Are you dealing with a violent or abusive relationship? Are you a victim of rape or sexual assult? Call [facility] ([place]) 24 hour Crisis Hotline: 592.868.5214 or 426-485-1601. MANUAL Your Guide to a Healthy manual is now on-line. Visit [email or web address] [email or web address] to download your free copy documented in this encounter [facility] 03-03-2024 Telephone encounter Note 1st risk assessment form submitted 03/03/2024. Elvia Gilmore RN [facility] 03-03-2024 Miscellaneous Notes 1st risk assessment form submitted 03/03/2024. Elvia Gilmore RN documented in this encounter [facility] 02-27-2024 Note HNO ID: [id number] Author: CHRISTIANE GUALLPA APRN.AIDA Service: ? 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 As applicable, any other physician, advance practice provider, medical student, or other health professional student that will be observing or involved in the sensitive examination for educational or training purposes was discussed with the Patient or Authorized Dean Of Faculty. The Patient or Authorized Dean Of Faculty has agreed to proceed with the sensitive [...] Christiane Guallpa APRN.CNM documented in this encounter [facility] 02-27-2024 Instructions Christiane Guallpa APRN.CNM - 02/27/2024 11:14 AM EST Please select the following link to access the [facility] Your Guide to a Healthy . [email or web address] [...] acid. It is a common prescription and hlxe-jxc-elefaid medication similar to other non-steroidal inflammatory drugs [...] . For more information, please see the [employer] [facility] [employer] fact sheet Paternal Exposures at [email or web address]-sh eets/waspuaqt-ggaomtgdy-xeanqbfm y/. documented in this encounter [facility] 11-15-2023 Note HNO ID: [id number] Author: SHERRIE CHAUDHRY MD Service: ? 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 Encounter Diagnosis ICD-10-CM 1. Dyspareunia in female N94.10 Please see report under imaging tab. 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 Encounter Diagnosis ICD-10-CM 1. Dyspareunia in female N94.10 Please see report under imaging tab. Sherrie Chaudhry MD November 15, 2023 6:07 PM documented in this encounter [facility] 11-07-2023 Instructions Rubin Davila APRN.CNP - 11/07/2023 [...] self breast awareness. documented in this encounter [facility] 11-07-2023 Note HNO ID: [id number] Author: RUBIN DAVILA APRN.CNP Service: ? 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 Louann is a 28 year old who presents for an annual gynecologic exam. Reports recent pelvic pain with intercourse. [place] like her partner hit something and then [...] L1 SAB0 IAB0 Ectopic0 Multiple0 Live Births1 Telemetry Technician History LMP: 10/22/2023, Having periods Age at Menarche: Age at First : Age at Menopause: Telemetry Technician History Comments: Sexual Activity: Yes; Male Contraception: [...] discussed with the Patient or Patient's Authorized Dean Of Faculty. As applicable, any other physician, advance practice provider, medical student, or other health professional student that will be observing or involved in the sensitive examination for educational or training purposes was discussed with the Patient or Authorized Dean Of Faculty. 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 Louann is a 28 year old who presents for an annual gynecologic exam. Reports recent pelvic pain with intercourse. [place] like her partner hit something and then [...] L1 SAB0 IAB0 Ectopic0 Multiple0 Live Births1 Telemetry Technician History LMP: 10/22/2023, Having periods Age at Menarche: Age at First : Age at Menopause: Telemetry Technician History Comments: Sexual Activity: Yes; Male Contraception: [...] discussed with the Patient or Patient's Authorized Dean Of Faculty. As applicable, any other physician, advance practice provider, medical student, or other health professional student that will be observing or involved in the sensitive examination for educational or training purposes was discussed with the Patient or Authorized Dean Of Faculty. The Patient or Authorized Dean Of Faculty has agreed to proceed with the sensitive [...] external genitalia normal, normal Bartholin's glands, urethra, [place]'s glands, no vulvar lesions, no cervical lesions, [...] ordered - PELVIC US WHI Rubin Davila APRN.HELP DESK ASSOCIATE documented in this encounter [facility] 09-05-2023 History of Presen t illness Narrative Patient presents for PPD read only. Denies any problems at this time. Nan Webster LPN documented in this encounter [facility] 09-02-2023 History of Presen t illness Narrative Patient presents for PPD administration. Denies any problems at this time. Tolerated injection well. Nan Webster LPN documented in this encounter [facility] 08-20-2023 Telephone encounter Note Patient scheduled for nurse visit 09/02/23 to receive PPD administration. Please place order at this time. Nan Webster LPN [facility] 08-20-2023 Miscellaneous Notes Patient scheduled for nurse visit 09/02/23 to receive PPD administration. Please place order at this time. Nan Webster LPN documented in this encounter [facility] 06-27-2023 Telephone encounter Note My Chart message sent, closing this encounter Lesley Alva APRN.HELP DESK ASSOCIATE [facility] 06-27-2023 Miscellaneous Notes My Chart message sent, closing this encounter Lesley Alva APRN.HELP DESK ASSOCIATE Let Pt know: IMPRESSION: Normal sonographic appearance of the right upper quadrant. Pt was asking if they had found anything, and I said it didn't appear that they found anything abnormal in the [place]. I let her know I would notify provider and have them look at it to make sure they didn't see anything. documented in this encounter [facility] 06-27-2023 Telephone encounter Note Let Pt know: IMPRESSION: Normal sonographic appearance of the right upper quadrant. Pt was asking if they had found anything, and I said it didn't appear that they found anything abnormal in the [place]. I let her know I would notify provider and have them look at it to make sure they didn't see anything. [facility] 06-26-2023 Note HNO ID: [id number] Author: MITCHELL MCKEON, TECHNOLOGIST Service: ? Author [...] PATIENT PRESENTS WITH AN IMPLANTABLE OR ATTACHED CNC SUPERVISOR: No RADIOLOGY DEPARTMENT: Ultrasound PERIPHERAL IV DATA: Not applicable SIGNED BY: TECHNOLOGIST Noé June 26, 2023 2:02 PM [facility] 06-26-2023 History of Presen t illness Narrative [...] PATIENT PRESENTS WITH AN IMPLANTABLE OR ATTACHED CNC SUPERVISOR: No RADIOLOGY DEPARTMENT: Ultrasound PERIPHERAL IV DATA: Not applicable SIGNED BY: TECHNOLOGIST Noé June 26, 2023 2:02 PM documented in this encounter [facility] 06-26-2023 History of Presen t illness Narrative [...] Patient agreeable to treatment plan. 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 Pt agreeable [...] agreeable to treatment plan. Sylvia Candelario APRN.CNP [address] [place] [address] documented in this encounter [facility] 08-24-2022 History of Presen t illness Narrative [...] L1 SAB0 IAB0 Ectopic0 Multiple0 Live Births1 Telemetry Technician History LMP: 08/23/2022, Drug Induced Amenorrhea Age at Menarche: Age at First : Age at Menopause: Telemetry Technician History Comments: Sexual Activity: Yes; Male Contraception: [...] Melissa Martino MD documented in this encounter [facility] 08-08-2022 History of Presen t illness Narrative [...] 2022 8:06 AM documented in this encounter [facility] 08-08-2022 Miscellaneous Notes RUQ US within normal limits. Pelvic ultrasound within normal limits except for small amount of free fluid documented in this encounter [facility] 08-06-2022 Lili Mistry APRN.CNS - 08/06/2022 8:03 AM EDT Review of hospital records showed possible mild pancreatitis. Some causes of pancreatitis include medications, alcohol, gallstones. Let us know if any upper abdominal pain, nausea or vomiting. Consider completing amylase and lipase levels today. Schedule a follow-up appointment with your LINUX ENGINEER regarding pelvic pain, consider completing ultrasound. documented in this encounter [facility] 08-06-2022 History of Presen t illness Narrative SUBJECTIVE: COVID-19 VACCINE(3 - Booster for Pfizer series) due on 05/22/2022 HPI Louann Clements is a 27 year old female. 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 On arrival indicates that she was seen at [facility] last week for pelvic pain. Review [...] Negative test. She was advised to use gdqv-hpy-jrcbkdb anti-inflammatories as needed and return for any [...] Abs Lymph 1.00 - 4.00 k/uL 2.09 [place]% % 7.0 Abs [place] <0.87 k/uL 0.42 [place]% % 1.5 Abs [...] be late for work. We will send [employer] message to follow-up and have schedulers call for any additional follow-up she would like to complete. Jennifer Mistry APRN.[employer] Medical Decision Making: Problems: Low: Acute, uncomplicated illness or injury Data: Unique test(s) ordered: 3+ Risk: Low: Low risk from testing/treatment Medical Decision Making Level: 3 - Low documented in this encounter [facility] 04-25-2022 History of Presen t illness Narrative Reworker offered: Patient declines. Louann is a 26 [...] L1 SAB0 IAB0 Ectopic0 Multiple0 Live Births1 Telemetry Technician History LMP: 02/13/2021, Drug Induced Amenorrhea Age at Menarche: Age at First : Age at Menopause: Telemetry Technician History Comments: Sexual Activity: Yes; Male Contraception: [...] external genitalia normal, normal Bartholin's glands, urethra, [place]'s glands, no vulvar lesions, no cervical lesions, [...] Melissa Martino MD documented in this encounter [facility] 03-27-2022 History of Presen t illness Narrative Patient presents for COVID vaccine. Denies any problems at this time. Tolerated injection well. Nna Webster LPN documented in this encounter [facility] 03-12-2022 History of Presen t illness Narrative Patient presents for PPD administration only. Denies any problems at this time. Tolerated injection well. Nan Webster LPN documented in this encounter [facility] 03-09-2022 History of Presen t illness Narrative [...] Sera Scott MD documented in this encounter [facility] 03-05-2022 Miscellaneous Notes Patient scheduled for nurse visit 03/12/22 to receive PPD test. Please place order at this time. Nna Webster LPN documented in this encounter [facility] 03-02-2022 History of Presen t illness Narrative Patient presents for PPD read only. Denies any problems at this time. Nan Webster LPN documented in this encounter [facility] 02-27-2022 Miscellaneous Notes Patient called requesting a refill. Will call back to schedule annual exam. Requested Prescriptions Pending Prescriptions Disp Refills Norethindrone Acet-Ethinyl Est (JUNE,) 1.5-30 mg-mcg 84 tablet 0 Sig: Take 1 tablet by mouth once daily. Take one active pill continuously x 3 months Last annual exam: 04/19/20 documented in this encounter [facility] 02-23-2022 Miscellaneous Notes I just ordered Regards, Sera Scott MD Patient scheduled for nurse visit 02/27/22 to receive PPD administration. Please place order at this time. Nan Webster LPN documented in this encounter [facility] 02-21-2022 History of Presen t illness Narrative [...] Sarah Jaimes APRN.CNP documented in this encounter [facility] 12-21-2021 Instructions Christiane Leung APRN.CNP - 12/21/2021 [...] when lying down. documented in this encounter [facility] 12-21-2021 History of Presen t illness Narrative Images from the original note were not included. This note was created using [employer]. Subjective Louann Clements is a 26 year [...] history is provided by the patient. No american sign language teacher was used. Wrist/forearm Injury The incident [...] with PCP if symptoms persist. Christiane Leung APRN.HELP DESK ASSOCIATE documented in this encounter [facility] 11-28-2021 History of Presen t illness Narrative This note was created using [employer]. 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 Please advise documented in this encounter [facility] 01-14-2019 History of Past i llness Narrative [...] of this encounter (statuses as of 05/12/2021) [facility] History of Past illness Narrative* Problem Noted Date Resolved Date Abnormal glucose in , antepartum 201803/24/2019 Encounter for supervision of normal first in first trimester 09/17/2018 03/24/2019 Overview: 01/14/19 1 hr GCT 162. 3 hr GTT ordered. Niharika Willams APRN.HELP DESK ASSOCIATE Patient request for diagnostic testing 9 09/17/2018 [...] of this encounter (statuses as of 09/11/2021) [facility] of [facility] Narrative* Problem Noted Date Resolved Date Abnormal glucose in , antepartum 201803/24/2019 Encounter for supervision of normal first in first trimester 09/17/2018 03/24/2019 Overview: 01/14/19 1 hr GCT 162. 3 hr GTT ordered. Niharika Willams APRN.HELP DESK ASSOCIATE Patient request for diagnostic testing 9 09/17/2018 [...] of this encounter (statuses as of 11/27/2021) [facility] Narrative* Problem Noted Date Resolved Date Abnormal glucose in , antepartum 201803/24/2019 Encounter for supervision of normal first in first trimester 09/17/2018 03/24/2019 Overview: 01/14/19 1 hr GCT 162. 3 hr GTT ordered. Niharika Willams APRN.HELP DESK ASSOCIATE Patient request for diagnostic testing 9 09/17/2018 [...] of this encounter (statuses as of 11/28/2021) [facility] Narrative* Problem Noted Date Resolved Date Abnormal glucose in , antepartum 201803/24/2019 Encounter for supervision of normal first in first trimester 09/17/2018 03/24/2019 Overview: 01/14/19 1 hr GCT 162. 3 hr GTT ordered. Niharika Willams APRN.HELP DESK ASSOCIATE Patient request for diagnostic testing 9 09/17/2018 [...] of this encounter (statuses as of 12/21/2021) [facility] Narrative* Problem Noted Date Resolved Date Abnormal glucose in , antepartum 201803/24/2019 Encounter for supervision of normal first in first trimester 09/17/2018 03/24/2019 Overview: 01/14/19 1 hr GCT 162. 3 hr GTT ordered. Niharika Willams APRN.HELP DESK ASSOCIATE Patient request for diagnostic testing 9 09/17/2018 [...] of this encounter (statuses as of 02/21/2022) [facility] Narrative* Problem Noted Date Resolved Date Abnormal glucose in , antepartum 201803/24/2019 Encounter for supervision of normal first in first trimester 09/17/2018 03/24/2019 Overview: 01/14/19 1 hr GCT 162. 3 hr GTT ordered. Niharika Willams APRN.HELP DESK ASSOCIATE Patient request for diagnostic testing 9 09/17/2018 [...] of this encounter (statuses as of 02/23/2022) [facility] Narrative* Problem Noted Date Resolved Date Abnormal glucose in , antepartum 201803/24/2019 Encounter for supervision of normal first in first trimester 09/17/2018 03/24/2019 Overview: 01/14/19 1 hr GCT 162. 3 hr GTT ordered. Niharika Wilalms APRN.HELP DESK ASSOCIATE Patient request for diagnostic testing 9 09/17/2018 [...] of this encounter (statuses as of 02/28/2022) [facility] Narrative* Problem Noted Date Resolved Date Abnormal glucose in , antepartum 201803/24/2019 Encounter for supervision of normal first in first trimester 09/17/2018 03/24/2019 Overview: 01/14/19 1 hr GCT 162. 3 hr GTT ordered. Niharika Willams APRN.HELP DESK ASSOCIATE Patient request for diagnostic testing 9 09/17/2018 [...] of this encounter (statuses as of 03/02/2022) [facility] Narrative* Problem Noted Date Resolved Date Abnormal glucose in , antepartum 201803/24/2019 Encounter for supervision of normal first in first trimester 09/17/2018 03/24/2019 Overview: 01/14/19 1 hr GCT 162. 3 hr GTT ordered. Niharika Willams APRN.HELP DESK ASSOCIATE Patient request for diagnostic testing 9 09/17/2018 Overview: 08/20/2018Desires nuchal ultrasound. Considering genetic carrier screening testing. TKRN Spondylolisthesis, lumbar region 12/31/2017 04/17/2019 Overview: Patient has a history of chronic back pain due to fractures vertebrae in 2012- [facility]. Had injections in the past to treat it. Desires anesthesia consult prior to delivery. TKRN Head injury 04/15/2012 12/31/2018 documented as of this encounter (statuses as of 03/06/2022) [facility] of [facility] Narrative* Problem Noted Date Resolved Date Abnormal glucose in , antepartum 201803/24/2019 Encounter for supervision of normal first in first trimester 09/17/2018 03/24/2019 Overview: 01/14/19 1 hr GCT 162. 3 hr GTT ordered. Niharika Willams APRN.HELP DESK ASSOCIATE Patient request for diagnostic testing 9 09/17/2018 [...] of this encounter (statuses as of 03/09/2022) [facility] Narrative* Problem Noted Date Resolved Date Abnormal glucose in , antepartum 201803/24/2019 Encounter for supervision of normal first in first trimester 09/17/2018 03/24/2019 Overview: 01/14/19 1 hr GCT 162. 3 hr GTT ordered. Niharika Willams APRN.HELP DESK ASSOCIATE Patient request for diagnostic testing 9 09/17/2018 [...] of this encounter (statuses as of 03/12/2022) [facility] Narrative* Problem Noted Date Resolved Date Abnormal glucose in , antepartum 201803/24/2019 Encounter for supervision of normal first in first trimester 09/17/2018 03/24/2019 Overview: 01/14/19 1 hr GCT 162. 3 hr GTT ordered. Niharika Willams APRN.HELP DESK ASSOCIATE Patient request for diagnostic testing 9 09/17/2018 [...] of this encounter (statuses as of 03/27/2022) [facility] Narrative* Problem Noted Date Resolved Date Abnormal glucose in , antepartum 201803/24/2019 Encounter for supervision of normal first in first trimester 09/17/2018 03/24/2019 Overview: 01/14/19 1 hr GCT 162. 3 hr GTT ordered. Niharika Willams APRN.HELP DESK ASSOCIATE Patient request for diagnostic testing 9 09/17/2018 [...] of this encounter (statuses as of 04/25/2022) [facility] Narrative* Problem Noted Date Resolved Date Abnormal glucose in , antepartum 201803/24/2019 Encounter for supervision of normal first in first trimester 09/17/2018 03/24/2019 Overview: 01/14/19 1 hr GCT 162. 3 hr GTT ordered. Niharika Willams APRN.HELP DESK ASSOCIATE Patient request for diagnostic testing 9 09/17/2018 [...] of this encounter (statuses as of 05/28/2022) [facility] Narrative* Problem Noted Date Resolved Date Abnormal glucose in , antepartum 201803/24/2019 Encounter for supervision of normal first in first trimester 09/17/2018 03/24/2019 Overview: 01/14/19 1 hr GCT 162. 3 hr GTT ordered. Niharika Willams APRN.HELP DESK ASSOCIATE Patient request for diagnostic testing 9 09/17/2018 [...] of this encounter (statuses as of 08/06/2022) [facility] Narrative* Problem Noted Date Diagnosed Date Resolved Date Abnormal glucose in , antepartum 01/14/2019 03/24/2019 Encounter for supervision of normal first in first trimester 09/17/2018 03/24/2019 Overview: 01/14/19 1 hr GCT 162. 3 hr GTT ordered. Niharika Willams APRN.HELP DESK ASSOCIATE Patient request for diagnostic testing 08/20/2018 09/17/2018 [...] of this encounter (statuses as of 08/24/2022) [facility] Narrative* Problem Noted Date Diagnosed Date Resolved Date Abnormal glucose in , antepartum 01/14/2019 03/24/2019 Encounter for supervision of normal first in first trimester 09/17/2018 03/24/2019 Overview: 01/14/19 1 hr GCT 162. 3 hr GTT ordered. Niharika Willams APRN.HELP DESK ASSOCIATE Patient request for diagnostic testing 08/20/2018 09/17/2018 [...] of this encounter (statuses as of 12/16/2022) [facility] Annual physical exam- Primary Routine general medical examination at a health care facility Fatigue, unspecified type Chronic mixed headache syndrome Other headache syndromes Chronic back pain, unspecified back location, unspecified back pain laterality [facility] Sore throat- Primary Acute pharyngitis At increased risk of exposure to COVID-19 virus [facility] Diagnosis Sore throat- Primary Acute pharyngitis [facility] Diagnosis Right wrist pain- Primary Pain in joint, forearm [facility] Diagnosis Rash and other nonspecific skin eruption- Primary [facility] Screening examination for pulmonary tuberculosis- Primary [facility] Screening examination for pulmonary tuberculosis- Primary [facility] Diagnosis Screening examination for pulmonary tuberculosis- Primary [facility] Diagnosis Chronic bilateral low back pain with sciatica, sciatica laterality unspecified- Primary Other migraine without status migrainosus, not intractable Overweight [facility] Need for vaccination- Primary Need for prophylactic vaccination and inoculation against unspecified single disease [facility] Gynecologic exam normal- Primary Special screening examination for human papillomavirus (HPV) Screening for cervical cancer Screening for malignant neoplasm of the cervix [facility] noteNo assessment information availableWChillic[facility] Work Phone: Evaluation note* Diagnosis Acute pancreatitis, unspecified complication status, unspecified pancreatitis type- Primary Pelvic pain in female Unspecified symptom associated with female genital organs Routine medical exam Routine general medical examination at a health care facility [facility] Diagnosis Abdominal pain in female- Primary Free fluid in pelvis Oral contraceptive pill surveillance Surveillance of previously prescribed contraceptive pill Deep dyspareunia [facility] Diagnosis Acute pancreatitis, unspecified complication status, unspecified pancreatitis type documented in this encounter [facility] note* Diagnosis Onset Date Resolution Status Protrusion of lumbar intervertebral disc acute Spondylolysis of lumbar region acute Protrusion of lumbar intervertebral disc acute Spondylolysis of lumbar region acute [facility] Work Phone: evaluation note* Diagnosis Rapid heartbeat- Primary Tachycardia, unspecified Palpitations VERENICE (generalized anxiety disorder) Generalized anxiety disorder Pain of right thumb Pain in limb [facility] Diagnosis Rapid heartbeat- Primary Tachycardia, unspecified Palpitations VERENICE (generalized anxiety disorder) Generalized anxiety disorder [facility] Diagnosis Epigastric pain- Primary Abdominal pain, epigastric Nausea and vomiting, unspecified vomiting type Epigastric pain Abdominal pain, epigastric Nausea and vomiting, unspecified vomiting type documented in this encounter [facility] note* Diagnosis Epigastric pain Abdominal pain, epigastric Nausea and vomiting, unspecified vomiting type [facility] Diagnosis Screening-pulmonary TB- Primary Screening examination for pulmonary tuberculosis [facility] Diagnosis Screening-pulmonary TB- Primary Screening examination for pulmonary tuberculosis [facility] Diagnosis Right wrist pain Pain in joint, forearm [facility] Diagnosis Encounter for gynecological examination (general) (routine) without abnormal findings- Primary Dyspareunia in female [facility] Diagnosis Dyspareunia in female [facility] Diagnosis with uncertain dates in first trimester- Primary Supervision of other normal History of delivery by vacuum extraction, currently with other poor obstetric history Rh negative state in antepartum period Rhesus isoimmunization affecting management of mother, 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 Acquired spondylolisthesis documented in this encounter [facility] note* Diagnosis Encounter for screening for malformation using ultrasound- Primary 12 weeks gestation of state, incidental documented in this encounter [facility] note* Diagnosis Supervision of other normal - Primary 12 weeks gestation of state, incidental documented in this encounter [facility] note* Diagnosis Supervision of other normal - [...] vacuum extraction, currently documented in this encounter [facility] note* Diagnosis Supervision of other normal - [...] extraction, currently (HCC) documented in this encounter [facility] note* Diagnosis Supervision of other normal - Primary History of delivery by vacuum extraction, currently ([facility]) with other poor obstetric history 16 weeks gestation of ([facility]) state, incidental Encounter for anatomic survey ([facility])- Primary Encounter for anatomic survey 20 weeks gestation of ([facility]) state, incidental Encounter for supervision of other normal in second trimester ([facility])- Primary History of delivery by vacuum extraction, currently ([facility]) with other poor obstetric history 20 weeks gestation of ([facility]) state, incidental documented in this encounter [facility] note* Diagnosis Supervision of other normal - Primary History of delivery by vacuum extraction, currently ([facility]) with other poor obstetric history 16 weeks gestation of ([facility]) state, incidental Encounter for supervision of other normal in second trimester ([facility])- Primary History of delivery by vacuum extraction, currently ([facility]) with other poor obstetric history 20 weeks gestation of ([facility]) state, incidental Encounter for supervision of other normal in second trimester ([facility])- Primary Screening for diabetes mellitus 24 weeks gestation of ([facility]) state, incidental documented in this encounter [facility] note* Diagnosis Supervision of other normal - Primary History of delivery by vacuum extraction, currently ([facility]) with other poor obstetric history 16 weeks gestation of ([facility]) state, incidental Encounter for supervision of other normal in second trimester ([facility])- Primary History of delivery by vacuum extraction, currently ([facility]) with other poor obstetric history 20 weeks gestation of ([facility]) state, incidental Encounter for supervision of other normal in third trimester ([facility])- Primary History of delivery by vacuum extraction, currently ([facility]) with other poor obstetric history Rh negative state in antepartum period ([facility]) Rhesus isoimmunization affecting management of mother, antepartum condition Need for vaccination Need for prophylactic vaccination and inoculation against unspecified single disease 28 weeks gestation of ([facility]) state, incidental * Assessment & Plan Note - Melissa Sanderson MD - 07/23/2024 8:37 AM EDT Associated Problem(s): History of delivery by vacuum extraction, currently ([facility]) * Assessment & Plan Note - Melissa Sanderson MD - 07/23/2024 8:37 AM EDT Associated Problem(s): Rh negative state in antepartum period (HCC) Orders: RhoD immune globulin 300 mcg injection (RHOPHYLAC) documented in this encounter [facility] note* Diagnosis Supervision of other normal - Primary History of delivery by vacuum extraction, currently ([facility]) with other poor obstetric history 16 weeks gestation of ([facility]) state, incidental Encounter for supervision of other normal in second trimester ([facility])- Primary History of delivery by vacuum extraction, currently ([facility]) with other poor obstetric history 20 weeks gestation of ([facility]) state, incidental Encounter for supervision of other normal in third trimester ([facility])- Primary History of delivery by vacuum extraction, currently ([facility]) with other poor obstetric history Rh negative state in antepartum period ([facility]) Rhesus isoimmunization affecting management of mother, antepartum condition Need for vaccination Need for prophylactic vaccination and inoculation against unspecified single disease 28 weeks gestation of ([facility]) state, incidental Encounter for supervision of other normal in third trimester ([facility])- Primary Anemia complicating , third trimester ([facility]) 30 weeks gestation of ([facility]) state, incidental documented in this encounter [facility] note* Diagnosis Supervision of other normal - Primary History of delivery by vacuum extraction, currently ([facility]) with other poor obstetric history 16 weeks gestation of ([facility]) state, incidental Encounter for supervision of other normal in second trimester ([facility])- Primary History of delivery by vacuum extraction, currently ([facility]) with other poor obstetric history 20 weeks gestation of ([facility]) state, incidental Encounter for supervision of other normal in third trimester ([facility])- Primary History of delivery by vacuum extraction, currently ([facility]) with other poor obstetric history Rh negative state in antepartum period ([facility]) Rhesus isoimmunization affecting management of mother, antepartum condition Need for vaccination Need for prophylactic vaccination and inoculation against unspecified single disease 28 weeks gestation of ([facility]) state, incidental Encounter for supervision of other normal in third trimester ([facility])- Primary Anemia complicating , third trimester (HCC) 32 weeks gestation of ([facility]) state, incidental documented in this encounter [facility] note* Diagnosis Supervision of other normal - Primary History of delivery by vacuum extraction, currently ([facility]) with other poor obstetric history 16 weeks gestation of ([facility]) state, incidental Encounter for supervision of other normal in second trimester ([facility])- Primary History of delivery by vacuum extraction, currently ([facility]) with other poor obstetric history 20 weeks gestation of ([facility]) state, incidental Encounter for supervision of other normal in third trimester ([facility])- Primary History of delivery by vacuum extraction, currently ([facility]) with other poor obstetric history Rh negative state in antepartum period ([facility]) Rhesus isoimmunization affecting management of mother, antepartum condition Need for vaccination Need for prophylactic vaccination and inoculation against unspecified single disease 28 weeks gestation of ([facility]) state, incidental Encounter for supervision of other normal in third trimester ([facility])- Primary Anemia complicating , third trimester ([facility]) History of delivery by vacuum extraction, currently ([facility]) with other poor obstetric history 34 weeks gestation of ([facility]) state, incidental * Assessment & Plan Note - Melissa Sanderson MD - 09/02/2024 1:37 PM EDT Associated Problem(s): History of delivery by vacuum extraction, currently ([facility]) Orders: URINE OB DIP B/O documented in this encounter [facility] note* Diagnosis Supervision of other normal - Primary History of delivery by vacuum extraction, currently ([facility]) with other poor obstetric history 16 weeks gestation of ([facility]) state, incidental Encounter for supervision of other normal in second trimester ([facility])- Primary History of delivery by vacuum extraction, currently ([facility]) with other poor obstetric history 20 weeks gestation of ([facility]) state, incidental Encounter for supervision of other normal in third trimester ([facility])- Primary History of delivery by vacuum extraction, currently ([facility]) with other poor obstetric history Rh negative state in antepartum period ([facility]) Rhesus isoimmunization affecting management of mother, antepartum condition Need for vaccination Need for prophylactic vaccination and inoculation against unspecified single disease 28 weeks gestation of ([facility]) state, incidental Abnormal glucose in , antepartum ([facility])- Primary Abnormal maternal glucose tolerance, antepartum Encounter for supervision of other normal in third trimester ([facility])- Primary Anemia complicating , third trimester ([facility]) History of delivery by vacuum extraction, currently ([facility]) with other poor obstetric history 34 weeks gestation of ([facility]) state, incidental Encounter for supervision of other normal in third trimester ([facility])- Primary Anemia complicating , third trimester ([facility]) History of delivery by vacuum extraction, currently ([facility]) with other poor obstetric history 36 weeks gestation of ([facility]) state, incidental [facility]* Diagnosis Supervision of other normal - Primary History of delivery by vacuum extraction, currently ([facility]) with other poor obstetric history 16 weeks gestation of ([facility]) state, incidental Encounter for supervision of other normal in second trimester ([facility])- Primary History of delivery by vacuum extraction, currently ([facility]) with other poor obstetric history 20 weeks gestation of ([facility]) state, incidental Encounter for supervision of other normal in third trimester ([facility])- Primary History of delivery by vacuum extraction, currently ([facility]) with other poor obstetric history Rh negative state in antepartum period ([facility]) Rhesus isoimmunization affecting management of mother, antepartum condition Need for vaccination Need for prophylactic vaccination and inoculation against unspecified single disease 28 weeks gestation of ([facility]) state, incidental Encounter for supervision of other normal in third trimester ([facility])- Primary Anemia complicating , third trimester ([facility]) History of delivery by vacuum extraction, currently ([facility]) with other poor obstetric history 34 weeks gestation of ([facility]) state, incidental Encounter for supervision of other normal in third trimester ([facility])- Primary Anemia complicating , third trimester ([facility]) History of delivery by vacuum extraction, currently ([facility]) with other poor obstetric history 36 weeks gestation of ([facility]) state, incidental Encounter for supervision of other normal in third trimester ([facility])- Primary Anemia complicating , third trimester (HCC) History of delivery by vacuum extraction, currently (HCC) with other poor obstetric history 37 weeks gestation of ([facility]) state, incidental * Assessment & Plan Note - Melissa Sanderson MD - 09/23/2024 8:39 AM EDT Associated Problem(s): History of delivery by vacuum extraction, currently (HCC) Orders: URINE OB DIP B/O [facility] Supervision of other normal - Primary History of delivery by vacuum extraction, currently ([facility]) with other poor obstetric history 16 weeks gestation of ([facility]) state, incidental Encounter for supervision of other normal in second trimester ([facility])- Primary History of delivery by vacuum extraction, currently ([facility]) with other poor obstetric history 20 weeks gestation of ([facility]) state, incidental Encounter for supervision of other normal in third trimester ([facility])- Primary History of delivery by vacuum extraction, currently ([facility]) with other poor obstetric history Rh negative state in antepartum period ([facility]) Rhesus isoimmunization affecting management of mother, antepartum condition Need for vaccination Need for prophylactic vaccination and inoculation against unspecified single disease 28 weeks gestation of ([facility]) state, incidental Encounter for supervision of other normal in third trimester ([facility])- Primary Anemia complicating , third trimester ([facility]) History of delivery by vacuum extraction, currently ([facility]) with other poor obstetric history 34 weeks gestation of ([facility]) state, incidental Encounter for supervision of other normal in third trimester ([facility])- Primary Anemia complicating , third trimester ([facility]) History of delivery by vacuum extraction, currently ([facility]) with other poor obstetric history 36 weeks gestation of ([facility]) state, incidental Encounter for supervision of other normal in third trimester ([facility])- Primary Anemia complicating , third trimester ([facility]) History of delivery by vacuum extraction, currently ([facility]) with other poor obstetric history 37 weeks gestation of ([facility]) state, incidental Encounter for supervision of other normal in third trimester ([facility])- Primary Anemia complicating , third trimester (HCC) History of delivery by vacuum extraction, currently ([facility]) with other poor obstetric history Uterine size-date discrepancy, third trimester ([facility]) 38 weeks gestation of ([facility]) state, incidental * Assessment & Plan Note - Melissa Sanderson MD - 09/29/2024 2:24 PM EDT Associated Problem(s): History of delivery by vacuum extraction, currently ([facility]) Orders: URINE OB DIP B/O [facility] Supervision of other normal - Primary History of delivery by vacuum extraction, currently ([facility]) with other poor obstetric history 16 weeks gestation of ([facility]) state, incidental Encounter for supervision of other normal in second trimester ([facility])- Primary History of delivery by vacuum extraction, currently ([facility]) with other poor obstetric history 20 weeks gestation of ([facility]) state, incidental Encounter for supervision of other normal in third trimester ([facility])- Primary History of delivery by vacuum extraction, currently ([facility]) with other poor obstetric history Rh negative state in antepartum period ([facility]) Rhesus isoimmunization affecting management of mother, antepartum condition Need for vaccination Need for prophylactic vaccination and inoculation against unspecified single disease 28 weeks gestation of ([facility]) state, incidental Elevated glucose tolerance test- Primary Impaired glucose tolerance test Encounter for supervision of other normal in third trimester ([facility])- Primary Anemia complicating , third trimester ([facility]) History of delivery by vacuum extraction, currently ([facility]) with other poor obstetric history 34 weeks gestation of ([facility]) state, incidental Encounter for supervision of other normal in third trimester ([facility])- Primary Anemia complicating , third trimester ([facility]) History of delivery by vacuum extraction, currently ([facility]) with other poor obstetric history 36 weeks gestation of ([facility]) state, incidental Encounter for supervision of other normal in third trimester ([facility])- Primary Anemia complicating , third trimester ([facility]) History of delivery by vacuum extraction, currently ([facility]) with other poor obstetric history 37 weeks gestation of ([facility]) state, incidental Encounter for supervision of other normal in third trimester (HCC)- Primary Anemia complicating , third trimester ([facility]) History of delivery by vacuum extraction, currently (HCC) with other poor obstetric history Uterine size-date discrepancy, third trimester ([facility]) 38 weeks gestation of ([facility]) state, incidental documented in this encounter [facility] for referral (narrative)* Diagnostic Procedure Only (Urgent) - Closed Specialty Diagnoses / Procedures Referred By Contac t Referred To Contact XR IMAGING Diagnoses Right wrist pain Procedures XR WRIST GENERAL 3V PA/LAT/OBL RIGHT RADEX WRIST COMPLETE MINIMUM 3 VIEWS Christiane Leung APRN.[employer] [address] [place] [address] Xr Imaging Referral ID Status Reason Start Date Expiration Date V isits Requested Visits Authorized [id number] Closed Auto-Generate d Referral 12/21/2021 01/20/2023 1 1 [facility] for referral (narrative)* Diagnostic Procedure Only (Routine) - Pending Review Specialty Diagnoses / Procedures Referred By Contac t Referred To Contact US IMAGING Diagnoses Acute pancreatitis, unspecified complication status, unspecified pancreatitis type Procedures US ABD RIGHT UPPER QUADRANT US ABDOMINAL REAL TIME W/IMAGE LIMITED Jennifer Mistry APRN.[employer] [address] [place] [address] Us Imaging Referral ID Status Reason Start Date Expiration Date Visits Requested Visits Authorized [id number] Pending Review Auto-Generat ed Referral 08/06/2022 09/05/2023 1 1 * Diagnostic Procedure Only (Routine) - Pending Review Specialty Diagnoses / Procedures Referred By Contac t Referred To Contact US IMAGING Diagnoses Pelvic pain in female Procedures US FEMALE PELVIS TRANSVAG US TRANSVAGINAL Jennifer Mistry APRN.[employer] [address] [place] [address] Us Imaging Referral ID Status Reason Start Date Expiration Date Visits Requested Visits Authorized [id number] Pending Review Auto-Generat ed Referral 08/06/2022 09/05/2023 1 1 [facility] for referral (narrative)* Diagnostic Procedure Only (Routine) - Closed Specialty Diagnoses / Procedures Referred By Contac t Referred To Contact US IMAGING Diagnoses Acute pancreatitis, unspecified complication status, unspecified pancreatitis type Procedures US ABD RIGHT UPPER QUADRANT US ABDOMINAL REAL TIME W/IMAGE LIMITED Jennifer Mistry, RAILWAY STATION MANAGER.SWEATBAND SHAPER [address] [place] [address] [place] [address] Referral ID Status Reason Start Date Expiration Date V isits Requested Visits Authorized [id number] Closed Auto-Generate d Referral 08/06/2022 09/05/2023 1 1 [facility] for referral (narrative)* Outpatient Procedure (Routine) - Pending Review Specialty Diagnoses / Procedures Referred By Contac t Referred To [facility] Diagnoses Rapid heartbeat Palpitations Procedures ECG COMPLETE ECG ROUTINE ECG W/LEAST 12 LDS W/I&R Sylvia Curran APRN.HELP DESK ASSOCIATE [address] [place] [address] [facility] [address] [place] [address] Referral ID Status Reason Start Date Expiration Date Visits Requested Visits Authorized [id number] Pending Review Auto-Generat ed Referral 06/06/2023 06/05/2024 1 1 [facility] for referral (narrative)* Diagnostic Procedure Only (Urgent) - Closed Specialty Diagnoses / Procedures Referred By Contac t Referred To Contact US IMAGING Diagnoses Epigastric pain Nausea and vomiting, unspecified vomiting type Procedures US ABD RIGHT UPPER QUADRANT US ABDOMINAL REAL TIME W/IMAGE LIMITED Lesley Alva RAILWAY STATION MANAGER.HELP DESK ASSOCIATE [address] [place] [address] [place] [address] Referral ID Status Reason Start Date Expiration Date V isits Requested Visits Authorized [id number] Closed Auto-Generate d Referral 06/26/2023 07/25/2024 1 1 [facility] for referral (narrative)* Diagnostic Procedure Only (Urgent) - Closed Specialty Diagnoses / Procedures Referred By Contac t Referred To Contact US IMAGING Diagnoses Epigastric pain Nausea and vomiting, unspecified vomiting type Procedures US ABD RIGHT UPPER QUADRANT US ABDOMINAL REAL TIME W/IMAGE LIMITED Lesley Alva, RAILWAY STATION MANAGER.HELP DESK ASSOCIATE [address] [place] [address] [place] [address] Referral ID Status Reason Start Date Expiration Date V isits Requested Visits Authorized [id number] Closed Auto-Generate d Referral 06/26/2023 07/25/2024 1 1 [facility] for referral (narrative)* Diagnostic Procedure Only (Urgent) - Closed Specialty Diagnoses / Procedures Referred By Contac t Referred To Contact XR IMAGING Diagnoses Right wrist pain Procedures XR WRIST GENERAL 3V PA/LAT/OBL RIGHT RADEX WRIST COMPLETE MINIMUM 3 VIEWS Christiane Leung RAILWAY STATION MANAGER.HELP DESK ASSOCIATE [address] [place] [address] [place] [address] Referral ID Status Reason Start Date Expiration Date V isits Requested Visits Authorized [id number] Closed Auto-Generate d Referral 12/21/2021 01/20/2023 1 1 [facility] for referral (narrative)* Diagnostic Procedure Only (Routine) - Authorized Specialty Diagnoses / Procedures Referred By Contac t Referred To Contact [facility] Diagnoses Dyspareunia in female Procedures PELVIC US I US PELVIC NONOBSTETRIC REAL-TIME IMAGE COMPLETE Rubin Davila, RAILWAY STATION MANAGER.HELP DESK ASSOCIATE [address] [place] [address] [address] Referral ID Status Reason Start Date Expiration Date Visits Requested Visits Authorized [id number] Authorized Auto-Generat ed Referral 11/07/2023 11/06/2024 1 1 [facility] for referral (narrative)* Diagnostic Procedure Only (Routine) - Authorized Specialty Diagnoses / Procedures Referred By Contac t Referred To Contact [facility] Diagnoses with uncertain dates in first trimester Procedures OBSTETRIC ULTRASOUND WHI US PREG UTERUS AFTER 1ST TRIMEST GESTATION Christiane Guallpa APRN.CNM [address] [place] [address] [address] Referral ID Status Reason Start Date Expiration Date Visits Requested Visits Authorized [id number] Authorized Auto-Generat ed Referral 03/02/2024 03/02/2025 1 1 * Diagnostic Procedure Only (Routine) - Authorized Specialty Diagnoses / Procedures Referred By Contac t Referred To Contact [facility] Diagnoses with uncertain dates in first trimester Procedures OBSTETRIC ULTRASOUND WHI US PREG UTERUS AFTER 1ST TRIMEST GESTATION Christiane Guallpa APRN.CNM [address] [place] [address] [address] Referral ID Status Reason Start Date Expiration Date Visits Requested Visits Authorized [id number] Authorized Auto-Generat ed Referral 03/02/2024 03/02/2025 1 1 [facility] for visit Narrative* Diagnostic Procedure Only (Routine) - Closed Specialty Diagnoses / Procedures Referred By Contac t Referred To Contact US IMAGING Diagnoses Acute pancreatitis, unspecified complication status, unspecified pancreatitis type Procedures US ABD RIGHT UPPER QUADRANT US ABDOMINAL REAL TIME W/IMAGE LIMITED Jennifer Mistry APRN.SWEATBAND SHAPER [address] [place] [address] [place] [address] Referral ID Status Reason Start Date Expiration Date V isits Requested Visits Authorized [id number] Closed Auto-Generate d Referral 08/06/2022 09/05/2023 1 1 [facility] for visit Narrative* Diagnostic Procedure Only (Urgent) - Closed Specialty Diagnoses / Procedures Referred By Contac t Referred To Contact US IMAGING Diagnoses Epigastric pain Nausea and vomiting, unspecified vomiting type Procedures US ABD RIGHT UPPER QUADRANT US ABDOMINAL REAL TIME W/IMAGE LIMITED Lesley Alva, RAILWAY STATION MANAGER.HELP DESK ASSOCIATE [address] [place] [address] [place] [address] Referral ID Status Reason Start Date Expiration Date V isits Requested Visits Authorized [id number] Closed Auto-Generate d Referral 06/26/2023 07/25/2024 1 1 [facility] for visit Narrative* Diagnostic Procedure Only (Urgent) - Closed Specialty Diagnoses / Procedures Referred By Contac t Referred To Contact XR IMAGING Diagnoses Right wrist pain Procedures XR WRIST GENERAL 3V PA/LAT/OBL RIGHT RADEX WRIST COMPLETE MINIMUM 3 VIEWS Christiane Leung, RAILWAY STATION MANAGER.HELP DESK ASSOCIATE [address] [place] [address] [place] [address] Referral ID Status Reason Start Date Expiration Date V isits Requested Visits Authorized [id number] Closed Auto-Generate d Referral 12/21/2021 01/20/2023 1 1 [facility] for visit Narrative* Diagnostic Procedure Only (Routine) - Closed Specialty Diagnoses / Procedures Referred By Contac t Referred To Contact [facility] Diagnoses Dyspareunia in female Procedures PELVIC US WHI US PELVIC NONOBSTETRIC REAL-TIME IMAGE COMPLETE Rubin Davila, RAILWAY STATION MANAGER.HELP DESK ASSOCIATE [address] [place] [address] [facility] [address] [place] [address] Referral ID Status Reason Start Date Expiration Date V isits Requested Visits Authorized [id number] Closed Auto-Generate d Referral 11/07/2023 11/06/2024 1 1 [facility] Summary Purpose Family History No Family History Records FoundNo Family History Records FoundNo Family History Records FoundNo Family History Records FoundNo Family History Records Found Advance Directives No Advanced Directives Records Found Advance Directive Response Recorded Date/ Time Living Will No July 25, 2022 9:42pm Power of Petroleum Engineering Teacher No July 25 3 9:42pm Advance Directive Response Recorded Date/ Time Living Will No February 18 12:37pm Power of Petroleum Engineering Teacher No February 18, 024 12:37pm Health Concerns [...] section and content) DATE CREATED AUTHOR 08/21/2017 [facility] DATE CREATED AUTHOR AUTHOR'S ORGANIZ ATION 01/18/2018 [facility] DATE CREATED AUTHOR AUTHOR'S ORGANIZ ATION 06/28/2023 [facility] DATE CREATED AUTHOR AUTHOR'S ORGANIZ ATION 10/20/2023 [facility] DATE CREATED AUTHOR AUTHOR'S ORGANIZ ATION 10/01/2024 [facility] Source Comments (unrecognize d section and content) In the event this informatio n is protected by the Federal Confidentiality of Alcohol and Drug Abuse Patient Records regulations: The Federal rules restrict any use of the information to criminally investigate or prosecute any alcohol or drug abuse patient.[facility] the event this information is protected by the Federal Confidentiality of Alcohol and Drug Abuse Patient Records regulations: The Federal rules restrict any use of the information to criminally investigate or prosecute any alcohol or drug abuse patient.[facility] SystemIn the event this information is protected by the Federal Confidentiality of Alcohol and Drug Abuse Patient Records regulations: The Federal rules restrict any use of the information to criminally investigate or prosecute any alcohol or drug abuse patient.[facility] SystemIn the event this information is protected by the Federal Confidentiality of Alcohol and Drug Abuse Patient Records regulations: The Federal rules restrict any use of the information to criminally investigate or prosecute any alcohol or drug abuse patient.[facility] SystemIn the event this information is protected by the Federal Confidentiality of Alcohol and Drug Abuse Patient Records regulations: The Federal rules restrict any use of the information to criminally investigate or prosecute any alcohol or drug abuse patient.[facility] SystemIn the event this information is protected by the Federal Confidentiality of Alcohol and Drug Abuse Patient Records regulations: The Federal rules restrict any use of the information to criminally investigate or prosecute any alcohol or drug abuse patient.[facility] SystemIn the event this information is protected by the Federal Confidentiality of Alcohol and Drug Abuse Patient Records regulations: The Federal rules restrict any use of the information to criminally investigate or prosecute any alcohol or drug abuse patient.[facility] SystemIn the event this information is protected by the Federal Confidentiality of Alcohol and Drug Abuse Patient Records regulations: The Federal rules restrict any use of the information to criminally investigate or prosecute any alcohol or drug abuse patient.[facility] SystemIn the event this information is protected by the Federal Confidentiality of Alcohol and Drug Abuse Patient Records regulations: The Federal rules restrict any use of the information to criminally investigate or prosecute any alcohol or drug abuse patient.[facility] SystemIn the event this information is protected by the Federal Confidentiality of Alcohol and Drug Abuse Patient Records regulations: The Federal rules restrict any use of the information to criminally investigate or prosecute any alcohol or drug abuse patient.[facility] SystemIn the event this information is protected by the Federal Confidentiality of Alcohol and Drug Abuse Patient Records regulations: The Federal rules restrict any use of the information to criminally investigate or prosecute any alcohol or drug abuse patient.[facility] SystemIn the event this information is protected by the Federal Confidentiality of Alcohol and Drug Abuse Patient Records regulations: The Federal rules restrict any use of the information to criminally investigate or prosecute any alcohol or drug abuse patient.[facility] SystemIn the event this information is protected by the Federal Confidentiality of Alcohol and Drug Abuse Patient Records regulations: The Federal rules restrict any use of the information to criminally investigate or prosecute any alcohol or drug abuse patient.[facility] SystemIn the event this information is protected by the Federal Confidentiality of Alcohol and Drug Abuse Patient Records regulations: The Federal rules restrict any use of the information to criminally investigate or prosecute any alcohol or drug abuse patient.[facility] SystemIn the event this information is protected by the Federal Confidentiality of Alcohol and Drug Abuse Patient Records regulations: The Federal rules restrict any use of the information to criminally investigate or prosecute any alcohol or drug abuse patient.[facility] SystemIn the event this information is protected by the Federal Confidentiality of Alcohol and Drug Abuse Patient Records regulations: The Federal rules restrict any use of the information to criminally investigate or prosecute any alcohol or drug abuse patient.[facility] SystemIn the event this information is protected by the Federal Confidentiality of Alcohol and Drug Abuse Patient Records regulations: The Federal rules restrict any use of the information to criminally investigate or prosecute any alcohol or drug abuse patient.[facility] SystemIn the event this information is protected by the Federal Confidentiality of Alcohol and Drug Abuse Patient Records regulations: The Federal rules restrict any use of the information to criminally investigate or prosecute any alcohol or drug abuse patient.[facility] SystemIn the event this information is protected by the Federal Confidentiality of Alcohol and Drug Abuse Patient Records regulations: The Federal rules restrict any use of the information to criminally investigate or prosecute any alcohol or drug abuse patient.[facility] SystemIn the event this information is protected by the Federal Confidentiality of Alcohol and Drug Abuse Patient Records regulations: The Federal rules restrict any use of the information to criminally investigate or prosecute any alcohol or drug abuse patient.[facility] SystemIn the event this information is protected by the Federal Confidentiality of Alcohol and Drug Abuse Patient Records regulations: The Federal rules restrict any use of the information to criminally investigate or prosecute any alcohol or drug abuse patient.[facility] SystemIn the event this information is protected by the Federal Confidentiality of Alcohol and Drug Abuse Patient Records regulations: The Federal rules restrict any use of the information to criminally investigate or prosecute any alcohol or drug abuse patient.[facility] SystemIn the event this information is protected by the Federal Confidentiality of Alcohol and Drug Abuse Patient Records regulations: The Federal rules restrict any use of the information to criminally investigate or prosecute any alcohol or drug abuse patient.[facility] SystemIn the event this information is protected by the Federal Confidentiality of Alcohol and Drug Abuse Patient Records regulations: The Federal rules restrict any use of the information to criminally investigate or prosecute any alcohol or drug abuse patient.[facility] SystemIn the event this information is protected by the Federal Confidentiality of Alcohol and Drug Abuse Patient Records regulations: The Federal rules restrict any use of the information to criminally investigate or prosecute any alcohol or drug abuse patient.[facility] SystemIn the event this information is protected by the Federal Confidentiality of Alcohol and Drug Abuse Patient Records regulations: The Federal rules restrict any use of the information to criminally investigate or prosecute any alcohol or drug abuse patient.[facility] SystemIn the event this information is protected by the Federal Confidentiality of Alcohol and Drug Abuse Patient Records regulations: The Federal rules restrict any use of the information to criminally investigate or prosecute any alcohol or drug abuse patient.[facility] SystemIn the event this information is protected by the Federal Confidentiality of Alcohol and Drug Abuse Patient Records regulations: The Federal rules restrict any use of the information to criminally investigate or prosecute any alcohol or drug abuse patient.[facility] SystemIn the event this information is protected by the Federal Confidentiality of Alcohol and Drug Abuse Patient Records regulations: The Federal rules restrict any use of the information to criminally investigate or prosecute any alcohol or drug abuse patient.[facility] SystemIn the event this information is protected by the Federal Confidentiality of Alcohol and Drug Abuse Patient Records regulations: The Federal rules restrict any use of the information to criminally investigate or prosecute any alcohol or drug abuse patient.[facility] SystemIn the event this information is protected by the Federal Confidentiality of Alcohol and Drug Abuse Patient Records regulations: The Federal rules restrict any use of the information to criminally investigate or prosecute any alcohol or drug abuse patient.[facility] SystemIn the event this information is protected by the Federal Confidentiality of Alcohol and Drug Abuse Patient Records regulations: The Federal rules restrict any use of the information to criminally investigate or prosecute any alcohol or drug abuse patient.[facility] SystemIn the event this information is protected by the Federal Confidentiality of Alcohol and Drug Abuse Patient Records regulations: The Federal rules restrict any use of the information to criminally investigate or prosecute any alcohol or drug abuse patient.[facility] SystemIn the event this information is protected by the Federal Confidentiality of Alcohol and Drug Abuse Patient Records regulations: The Federal rules restrict any use of the information to criminally investigate or prosecute any alcohol or drug abuse patient.[facility] SystemIn the event this information is protected by the Federal Confidentiality of Alcohol and Drug Abuse Patient Records regulations: The Federal rules restrict any use of the information to criminally investigate or prosecute any alcohol or drug abuse patient.[facility] SystemIn the event this information is protected by the Federal Confidentiality of Alcohol and Drug Abuse Patient Records regulations: The Federal rules restrict any use of the information to criminally investigate or prosecute any alcohol or drug abuse patient.[facility] SystemIn the event this information is protected by the Federal Confidentiality of Alcohol and Drug Abuse Patient Records regulations: The Federal rules restrict any use of the information to criminally investigate or prosecute any alcohol or drug abuse patient.[facility] SystemIn the event this information is protected by the Federal Confidentiality of Alcohol and Drug Abuse Patient Records regulations: The Federal rules restrict any use of the information to criminally investigate or prosecute any alcohol or drug abuse patient.[facility] SystemIn the event this information is protected by the Federal Confidentiality of Alcohol and Drug Abuse Patient Records regulations: The Federal rules restrict any use of the information to criminally investigate or prosecute any alcohol or drug abuse patient.[facility] SystemIn the event this information is protected by the Federal Confidentiality of Alcohol and Drug Abuse Patient Records regulations: The Federal rules restrict any use of the information to criminally investigate or prosecute any alcohol or drug abuse patient.[facility] SystemIn the event this information is protected by the Federal Confidentiality of Alcohol and Drug Abuse Patient Records regulations: The Federal rules restrict any use of the information to criminally investigate or prosecute any alcohol or drug abuse patient.[facility] SystemIn the event this information is protected by the Federal Confidentiality of Alcohol and Drug Abuse Patient Records regulations: The Federal rules restrict any use of the information to criminally investigate or prosecute any alcohol or drug abuse patient.[facility] SystemIn the event this information is protected by the Federal Confidentiality of Alcohol and Drug Abuse Patient Records regulations: The Federal rules restrict any use of the information to criminally investigate or prosecute any alcohol or drug abuse patient.[facility] SystemIn the event this information is protected by the Federal Confidentiality of Alcohol and Drug Abuse Patient Records regulations: The Federal rules restrict any use of the information to criminally investigate or prosecute any alcohol or drug abuse patient.[facility] SystemIn the event this information is protected by the Federal Confidentiality of Alcohol and Drug Abuse Patient Records regulations: The Federal rules restrict any use of the information to criminally investigate or prosecute any alcohol or drug abuse patient.[facility] SystemIn the event this information is protected by the Federal Confidentiality of Alcohol and Drug Abuse Patient Records regulations: The Federal rules restrict any use of the information to criminally investigate or prosecute any alcohol or drug abuse patient.[facility] SystemIn the event this information is protected by the Federal Confidentiality of Alcohol and Drug Abuse Patient Records regulations: The Federal rules restrict any use of the information to criminally investigate or prosecute any alcohol or drug abuse patient.[facility] SystemIn the event this information is protected by the Federal Confidentiality of Alcohol and Drug Abuse Patient Records regulations: The Federal rules restrict any use of the information to criminally investigate or prosecute any alcohol or drug abuse patient.[facility] SystemIn the event this information is protected by the Federal Confidentiality of Alcohol and Drug Abuse Patient Records regulations: The Federal rules restrict any use of the information to criminally investigate or prosecute any alcohol or drug abuse patient.[facility] SystemIn the event this information is protected by the Federal Confidentiality of Alcohol and Drug Abuse Patient Records regulations: The Federal rules restrict any use of the information to criminally investigate or prosecute any alcohol or drug abuse patient.[facility] SystemIn the event this information is protected by the Federal Confidentiality of Alcohol and Drug Abuse Patient Records regulations: The Federal rules restrict any use of the information to criminally investigate or prosecute any alcohol or drug abuse patient.[facility] SystemIn the event this information is protected by the Federal Confidentiality of Alcohol and Drug Abuse Patient Records regulations: The Federal rules restrict any use of the information to criminally investigate or prosecute any alcohol or drug abuse patient.[facility] Reason for Visit (unrecogniz ed section and [...] Reason Comments 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 Reason Comments US Specialty Diagnoses / Procedures Referred By Contac t Referred To Contact [facility] Diagnoses with uncertain dates in first trimester Procedures OBSTETRIC ULTRASOUND WHI US PREG UTERUS AFTER 1ST TRIMEST GESTATION Christiane Guallpa APRN.AIDA [address] [place] [address] Phone: tel: fax: [facility] [address] [place] [address] Referral ID Status Reason Start Date Expiration Date V isits Requested Visits Authorized [id number] Closed Auto-Generate d Referral 03/02/2024 03/02/2025 1 1 Reason Onset Date Comments Care 04/02/2024 Reason Comments Blacking out episode Reason Onset Date Comments Care 04/30/2024 Reason Onset Date Comments Care 05/26/2024 Specialty Diagnoses / Procedures Referred By Maricel dotson Referred To Contact [facility] Diagnoses with uncertain dates in first trimester (HCC) Procedures OBSTETRIC ULTRASOUND WHI US PREG UTERUS AFTER 1ST TRIMEST GESTATION Christiane Guallpa APRN.CNSintia [address] [place] [address] Phone: tel: fax: [facility] [address] [place] [address] Referral ID Status Reason Start Date Expiration Date V isits Requested Visits Authorized [id number] Closed Auto-Generate d Referral 03/02/2024 03/02/2025 1 [...] Care Teams (unrecognized sec tion and content) Three Dimensional Map Modeler Relationship Specialty Start Date End Date Sera Scott MD [address] [place], [place] [address] [phone] PCP - General Internal Medicine 02/01/21 Three Dimensional Map Modeler Relationship Specialty Start Date End Date Sera Scott MD [address] [place] [address] PCP - General Internal Medicine 02/01/21 Three Dimensional Map Modeler Relationship Specialty Start Date End Date Sera Scott MD [address] [place], [place] [address] [phone] PCP - General Internal Medicine 02/01/21 Three Dimensional Map Modeler Relationship Specialty Start Date End Date Sera Scott MD [address] [place] [address] PCP - General Internal Medicine 02/01/21 Three Dimensional Map Modeler Relationship Specialty Start Date End Date Sera Scott MD [address] [place] [address] PCP - General Internal Medicine 02/01/21 Three Dimensional Map Modeler Relationship Specialty Start Date End Date Sera Scott MD [address] [place] [address] PCP - General Internal Medicine 02/01/21 Three Dimensional Map Modeler Relationship Specialty Start Date End Date Sera Scott MD [address] [place] [address] PCP - General Internal Medicine 02/01/21 Three Dimensional Map Modeler Relationship Specialty Start Date End Date Sera Scott MD [address] [place] [address] PCP - General Internal Medicine 02/01/21 Three Dimensional Map Modeler Relationship Specialty Start Date End Date Sera Scott MD [address] [place] [address] PCP - General Internal Medicine 02/01/21 Three Dimensional Map Modeler Relationship Specialty Start Date End Date Sera Scott MD [address] [place] [address] PCP - General Internal Medicine 02/01/21 Team Status: Active Member Role Status Dates Dr. Jeane Segovia MD Family Provider Active Dr. Sera Scott MD Primary Care Provider Active Team Status: Inactive Member Role Status Dates Dr. Elvia Lambert MD Emergency Provider Active Dr. Sera Scott MD Primary Care Provider Active Three Dimensional Map Modeler Relationship Specialty Start Date End Date Sera Scott MD [address] [place] [address] PCP - General Internal Medicine 02/01/21 Three Dimensional Map Modeler Relationship Specialty Start Date End Date Sera Scott MD [address] [place] [address] PCP - General Internal Medicine 02/01/21 Three Dimensional Map Modeler Relationship Specialty Start Date End Date Sera Scott MD [address] [place], [place] [id number] PCP - General Internal Medicine 02/01/21 Team [...] Primary Care Physician Primary Care Provider Active Three Dimensional Map Modeler Relationship Specialty Start Date End Date Sera Scott MD [address] [place] [address] PCP - General Internal Medicine 02/01/21 Three Dimensional Map Modeler Relationship Specialty Start Date End Date Sera Scott MD [address] [place] [address] PCP - General Internal Medicine 02/01/21 Three Dimensional Map Modeler Relationship Specialty Start Date End Date Sera Scott MD [address] [place], [place] [address] PCP - General Internal Medicine 02/01/21 Three Dimensional Map Modeler Relationship Specialty Start Date End Date Sera Scott MD [address] [place] [address] PCP - General Internal Medicine 02/01/21 Three Dimensional Map Modeler Relationship Specialty Start Date End Date Sera Scott MD [address] [place], [place] [address] PCP - General Internal Medicine 02/01/21 Three Dimensional Map Modeler Relationship Specialty Start Date End Date Sera Scott MD [address] [place] [address] PCP - General Internal Medicine 02/01/21 Three Dimensional Map Modeler Relationship Specialty Start Date End Date Sera Scott MD [address] [place] [address] PCP - General Internal Medicine 02/01/21 Three Dimensional Map Modeler Relationship Specialty Start Date End Date Sera Scott MD [address] [place] [address] PCP - General Internal Medicine 02/01/21 Three Dimensional Map Modeler Relationship Specialty Start Date End Date Sera Scott MD [address] [place] [address] PCP - General Internal Medicine 02/01/21 Carmella Casper PA-C [address] [place] [address] Patent Searcher Family Medicine 01/19/24 Sarah Jaimes APRN.CNP [address] [place] [address] Patent Searcher Internal Medicine 01/19/24 Felisa Parmar PA-C [address] [place] [address] Patent Searcher Family Medicine 01/19/24 Three Dimensional Map Modeler Relationship Specialty Start Date End Date Sera Scott MD [address] [place] [address] PCP - General Internal Medicine 02/01/21 Carmella Casper PA-C [address] [place] [address] Patent Searcher Family Medicine 01/19/24 Sarah Jaimes APRN.HELP DESK ASSOCIATE [address] [place] [address] Patent Searcher Internal Medicine 01/19/24 Felisa Parmar PA-C [address] [place] [address] Patent Searcher Family Medicine 01/19/24 Three Dimensional Map Modeler Relationship Specialty Start Date End Date Sera Scott MD [address] [place] [address] PCP - General Internal Medicine 02/01/21 Carmella Casper PA-C [address] [place] [address] Patent Searcher Family Medicine 01/19/24 Sarah Jaimes, KONRAD.HELP DESK ASSOCIATE [address] [place] [address] Patent Searcher Internal Medicine 01/19/24 Felisa Parmar PA-C [address] [place] [address] Patent Searcher Family Medicine 01/19/24 Three Dimensional Map Modeler Relationship Specialty Start Date End Date Sera Scott MD [address] [place] [address] PCP - General Internal Medicine 02/01/21 Carmella Casper PA-C [address] [place] [address] Patent Searcher Family Medicine 01/19/24 Sarah Jaimes APRN.HELP DESK ASSOCIATE [address] [place] [address] Patent Searcher Internal Medicine 01/19/24 Felisa Parmar PA-C [address] [place] [address] Patent Searcher Family Medicine 01/19/24 Three Dimensional Map Modeler Relationship Specialty Start Date End Date Sera Scott MD [address] [place] [address] PCP - General Internal Medicine 02/01/21 Carmella Casper PA-C [address] [place] [address] Patent Searcher Family Medicine 01/19/24 Sarah Jaimes APRN.HELP DESK ASSOCIATE [address] [place] [address] Patent Searcher Internal Medicine 01/19/24 Felisa Parmra PA-C [address] [place] [address] Patent Searcher Family Medicine 01/19/24 Three Dimensional Map Modeler Relationship Specialty Start Date End Date Sera Scott MD [address] [place] [address] PCP - General Internal Medicine 02/01/21 Sarah Jaimes APRN.HELP DESK ASSOCIATE [address] [place], [place] [address] Patent Searcher Internal Medicine 01/19/24 Three Dimensional Map Modeler Relationship Specialty Start Date End Date Sera Scott MD [address] [place] [address] PCP - General Internal Medicine 02/01/21 Sarah Jaimes APRN.HELP DESK ASSOCIATE [address] [place] [address] Patent Searcher Internal Medicine 01/19/24 Three Dimensional Map Modeler Relationship Specialty Start Date End Date Sera Scott MD [address] [place] [address] PCP - General Internal Medicine 02/01/21 Sarah Jaimes RAILWAY STATION MANAGER.HELP DESK ASSOCIATE [address] [place] [address] Patent Searcher Internal Medicine 01/19/24 Three Dimensional Map Modeler Relationship Specialty Start Date End Date Sera Scott MD [address] [place] [address] PCP - General Internal Medicine 02/01/21 Carmella Casper PA-C [address] [place] [address] Patent Searcher Family Medicine 01/19/24 05/03/24 Sarah Jaimes APRN.HELP DESK ASSOCIATE [address] [place] [address] Patent Searcher Internal Medicine 01/19/24 Felisa Parmar PA-C [address] [place] [address] Patent Searcher Family Medicine 01/19/24 05/03/24 Three Dimensional Map Modeler Relationship Specialty Start Date End Date Sera Scott MD [address] [place] [address] PCP - General Internal Medicine 02/01/21 Sarah Jaimes APRN.HELP DESK ASSOCIATE [address] [place] [address] Patent Searcher Internal Medicine 01/19/24 Three Dimensional Map Modeler Relationship Specialty Start Date End Date Sera Scott MD [address] [place] [address] PCP - General Internal Medicine 02/01/21 Sarah Jaimes APRN.HELP DESK ASSOCIATE [address] [place] [address] Patent Searcher Internal Medicine 01/19/24 Three Dimensional Map Modeler Relationship Specialty Start Date End Date Sera Scott MD [address] [place] [address] PCP - General Internal Medicine 02/01/21 Sarah Jaimes APRN.HELP DESK ASSOCIATE [address] [place] [address] Patent Searcher Internal Medicine 01/19/24 Three Dimensional Map Modeler Relationship Specialty Start Date End Date Sera Scott MD [address] [place] [address] PCP - General Internal Medicine 02/01/21 Sarah Jaimes APRN.HELP DESK ASSOCIATE [address] [place] [address] Patent Searcher Internal Medicine 01/19/24 Three Dimensional Map Modeler Relationship Specialty Start Date End Date Sera Scott MD [address] [place] [address] PCP - General Internal Medicine 02/01/21 Sarah Jaimes APRN.HELP DESK ASSOCIATE [address] [place] [address] Patent Searcher Internal Medicine 01/19/24 Three Dimensional Map Modeler Relationship Specialty Start Date End Date Sera Scott MD [address] [place] [address] PCP - General Internal Medicine 02/01/21 Sarah Jaimes APRN.HELP DESK ASSOCIATE [address] [facility] [place] [address] Patent Searcher Internal Medicine 01/19/24 Three Dimensional Map Modeler Relationship Specialty Start Date End Date Sera Scott MD [address] [place] [address] PCP - General Internal Medicine 02/01/21 Sarah Jaimes APRN.HELP DESK ASSOCIATE [address] [facility] [place] [address] Patent Searcher Internal Medicine 01/19/24 Three Dimensional Map Modeler Relationship Specialty Start Date End Date Sera Scott MD [address] [place] [address] PCP - General Internal Medicine 02/01/21 Sarah Jaimes APRN.HELP DESK ASSOCIATE [address] [place] [address] Patent Searcher Internal Medicine 01/19/24 Three Dimensional Map Modeler Relationship Specialty Start Date End Date Sera Scott MD [address] [place] [address] PCP - General Internal Medicine 02/01/21 Sarah Jaimes APRN.HELP DESK ASSOCIATE [address] [facility] [place] [address] Patent Searcher Internal Medicine 01/19/24 Three Dimensional Map Modeler Relationship Specialty Start Date End Date Sera Scott MD [address] [facility] [place] [place] [address] PCP - General Internal Medicine 02/01/21 Sarah Jaimes APRN.HELP DESK ASSOCIATE [address] [facility] [place] [address] Patent Searcher Internal Medicine 01/19/24 Three Dimensional Map Modeler Relationship Specialty Start Date End Date Sera Scott MD [address] [facility] [place] [place] [address] PCP - General Internal Medicine 02/01/21 Sarah Jaimes APRN.HELP DESK ASSOCIATE [address] [facility] [place] [address] Patent Searcher Internal Medicine 01/19/24 Three Dimensional Map Modeler Relationship Specialty Start Date End Date Sera Scott MD [address] [facility] [place] [address] PCP - General Internal Medicine 02/01/21 Sarah Jaimes APRN.HELP DESK ASSOCIATE [address] [facility] [place] [address] Patent Searcher Internal Medicine 01/19/24 Goals (unrecognized section and [...] BE BASED ON THE PRIMARY CLINICAL RECORDS. [email or web address] provides no warranty or guarantee of the accuracy or completeness of information in this document.
[2024-10-01 05:55] LABS: Hematocrit 36.0 % (37-47); Hemoglobin 12.3 g/dL (12.0-15.0); Immature Granulocytes Count 0.230 X10^3/uL (0.0-0.0); Mean Corp Hgb Conc 34.2 g/dL (32-36); Mean Corpuscular Volume 95.5 fL (81-99); Mean Platelet Vol. 13.9 fl (6.2-12.0); NRBC Flagged by Analyzer 0 % (0-5); Platelet Count 153 K/mm3 (150-450); RBC Distribution Width CV 12.9 % (11.6-14.6); RBC Distribution Width SD 44.5 fl (35.1-43.9); Red Blood Count 3.77 M/mm3 (4.2-5.4); White Blood Count 14.3 K/mm3 (4.4-11.0)
--- NOTE | 2024-10-01 06:01 | PCM.HP.OB ---
HPI - General General Date of Admission: 10/01/24 HPI Narrative RODRIGO TAN, is a 29 F who presents in spontaneous, active labor. Maternal Data Information DENISE Calculator Estimated Delivery Date Method Current WG Current Estimate 10/11/24 Manual 38w 4d PFSH PFSH Medical History Pars defect of lumbar spine Hx of concussion Anxiety Palpitations Tachycardia Ovarian cyst Chronic back pain Home Medications ?Medication ?Instructions ?Recorded ?Last Taken ?Type duloxetine 30 mg capsule,delayed 30 mg PO DAILY 06/25/23 Unknown History release meclizine 25 mg tablet 25 mg PO 4X/DAY PRN PRN Dizziness 07/21/23 Unknown Rx #20 tabs ondansetron 4 mg disintegrating 4 mg PO Q6H PRN nausea and 07/21/23 Unknown Rx tablet vomiting #10 tabs Allergy/AdvReac Type Severity Reaction Status Date / Time pumpkin Allergy Hives Verified 08/28/23 13:51 Family History Mother Endometriosis Surgical History History of removal of ovarian cyst Hx of appendectomy Social History Smoking Status: Never smoker History Elective abortions Hx Para 0 Spontaneous abortions Hx # Term Pregnancies Ectopic pregnancies Hx # Pregnancies Multiple births # of living children ROS Eyes Eyes: Denies blurry vision, change in vision or spots in vision ENT HEENT: Denies dizziness or headache(s) Cardiovascular Cardiovascular: Denies abdominal pain, chest pain or dyspnea Respiratory/Chest Respiratory/Chest: Denies cough, dyspnea, shortness of breath at rest or shortness of breath with exertion Gastrointestinal Gastrointestinal: Denies abdominal pain, diarrhea or vomiting Genitourinary Genitourinary: Denies change in urinary stream, difficulty urinating or dysuria Musculoskeletal Musculoskeletal: Reports none Integumentary Integumentary: Denies rash Neurologic Neurologic: Denies dizziness, headache(s), memory loss or weakness Psychiatric Psychiatric: Reports none Vital Signs Vital Signs Vital Signs: 10/01/24 05:39 10/01/24 05:39 10/01/24 05:39 Temperature 97.3 F L Temperature Source Temporal Pulse Rate Respiratory Rate 16 Blood Pressure BP Systolic BP Diastolic 10/01/24 05:47 10/01/24 05:47 Temperature Temperature Source Pulse Rate 81 Respiratory Rate Blood Pressure 136/86 H BP Systolic 136 BP Diastolic 86 Physical Exam Const alert, oriented x3 and no apparent distress General Appearance: cooperative Orientation / Consciousness: awake Exam Limitations: no limitations HEENT normocephalic Head and Scalp: normal to inspection Eyes General Eye: normal appearance of both eyes Neck full ROM and no lymphadenopathy Lymph Lymphatic: no lymphadenopathy noted Chest inspection of chest normal Resp normal respiratory effort, normal air movement and clear to auscultation bilaterally Effort and Inspection: able to speak in complete sentences and symmetric chest movement Cardio regular rate and regular rhythm GI normal to inspection, nondistended, normoactive bowel sounds Manual OB Exam: presentation cephalic Back/Spine normal ROM Extremity full ROM and no calf tenderness Skin no rashes or lesions noted General Skin Exam: no breakdown Neuro oriented x3 and CN's II-XII intact bilaterally Psych mental status grossly normal and thought process normal Labs Labs Labs: Blood Type A NEGATIVE Antibody Screen NEGATIVE Hct 36.0 % (37-47) L Hgb 12.3 g/dL (12.0-15.0) Syphilis Total Ab Pending Rhogam given: No Assessment & Plan (1) Spontaneous onset of labor: (2) Anxiety: (3) 38 weeks gestation of : (4) Anemia affecting : (5) History of vacuum extraction assisted delivery: (6) Rh negative status during : PLAN: Plan CE 8-9 cm with bulging bag May desire epidural placement GBS negative Anticipate Dr. Meyer notified of admission and is collaborating physician
[2024-10-01 06:22] LABS: Syphilis Antibodies Nonreactive (Nonreactive)
[2024-10-01] MEDS: Lactated Ringers 1,000 ML 999 ML IV (06:30)
[2024-10-01] MEDS: fentaNYL-bupivacaine (epidural) 100 ML BAG EPIDURAL (07:10)
[2024-10-01] MEDS: Lactated Ringers 1,000 ML 200 ML IV (07:35)
[2024-10-01] MEDS: LACTATED RINGERS 500 ML 999 ML IV (08:02)
[2024-10-01] MEDS: Oxytocin 15 Units/NS 250ml 15 UNITS/250 ML IV.SOLN 2 UNITS IV (10:35)
--- NOTE | 2024-10-01 11:48 | EX.PCM.OBVAG ---
Assessment & Plan (1) Vacuum extractor delivery, delivered: (2) Spontaneous onset of labor: (3) 38 weeks gestation of : (4) Anemia affecting : (5) History of vacuum extraction assisted delivery: (6) Rh negative status during : (7) Maternal exhaustion complicating labor and delivery: Maternal Data Information DENISE Calculator Estimated Delivery Date Method Current WG Current Estimate 10/11/24 Manual 38w 4d Vaginal Delivery Maternal Presentation Maternal Presentation: Active Labor Maternal Presentation: The patient presented at 8-9 cm dilated Vaginal Delivery Information Procedure Performed: Vacuum Assisted Vaginal Delivery Station at time of placement: +2 Number of vacuum pulls: 4 Number of vacuum pop offs: 2 Surgeon/Practitioner: Galilea Potter Date of Procedure: 10/01/24 Pre-Procedure Diagnosis: 38 week gestation, active labor at term, history vacuum assisted vaginal delivery Post-Procedure Diagnosis: As above, maternal exhaustion, prolonged second stage of labor Type of anesthesia: Epidural Special Medications: None Estimated Blood Loss: 200 mL Findings Description of procedure: The patient was completed and pushing. The first 30 minutes the patient was not pushing effectively, and was learning how to push appropriately. Fetus was palpated to be in OP position. Assisted patient in pushing in different positions such as closed knee, left lateral, right lateral. The patient then pushed with great effort and descent for 1.5 hours. The patient stated fatigue and exhaustion at this point. Discussed r/b/a vacuum assisted vaginal delivery including but not limited to vaginal laceration, scalp laceration, cephalohematoma, intracranial bleeding, brain injury. The patient consented to a vacuum assisted vaginal delivery. The patient was comfortable with an epidural. Bladder was drained. Cervix was 10 cm dilated and 100% effaced. Fetus at +2 station and in OP position. The vacuum was placed and the correct placement was confirmed in front of the posterior fontanelle. With the patient's next contraction, the vacuum was inflated and gentle downward pressure was used with good movement/descent of baby. The vacuum pressure was released once the contraction ended. With the next two contractions the vacuum was inflated and gentle downward pressure was used with 2 pop offs, and the head was now at 3+ station. The patient then stopped having strong and frequent contractions. The contractions were only lasting several seconds, and were now noted to be infrequent. FHT remained reassuring. The vacuum was removed and Pitocin was started for augmentation. The patient pushed without the vacuum for several contractions which were infrequent at this point. The Pitocin was increased from 2 to 4 once able per protocol. Once the contractions became more frequent, the patient again pushed with good maternal effort. The vacuum was placed one last time and correct placement was confirmed digitally in front of the posterior fontanelle. With the last contraction, the vacuum was inflated to deliver the head to 4+ station. The vacuum was removed. A modified Ritgen was performed and the baby's head was delivered in OP position. The shoulders and body were delivered without any excessive traction, force or delay. A VFI was placed on maternal abdomen and meconium stained fluid was now noted. The cord was clamped and cut immediately and infant taken to the warmer. Cord gases and cord blood were obtained. The placenta delivered spontaneously and was noted to be normal appearing and intact with a 3 VC. There was a true knot in the umbilical cord. Fundus firm and bleeding scant. Upon inspection there were no lacerations noted. A vaginal sweep was performed. Sharp and sponge counts were correct. The vacuum was used for 4 total pulls with 2 pop offs. Procedure findings: VFI with Apgars 6, 9 Meconium stained fluid Normal appearing placenta True knot in the umbilical cord Presentation: Vertex Amniotic Membrane Rupture Type: Spontaneous Amniotic Fluid Description: Clear (during labor and pushing) and Moderate meconium (noted at time of delivery) Placental Delivery Description: Spontaneous Cord Vessel Description: 3 Vessels Cord Entanglement: True Knot(s) Nuchal Cord Compression: Without compression Cord Gases: ABG and VBG A Gender: Female (1 minute): 6 (5 minute): 9 Delayed Cord Clamping: No Post Vaginal Deli Medications given after delivery: IV Pitocin Episiotomy Description: None Laceration: None Complication Complications: No
[2024-10-01] MEDS: Rho(D) Immune Globulin 300 MCG (1500 Unit) Syringe IV (16:53)
[2024-10-02] VITALS (8 sets, daily range): BP systolic 101–121; BP diastolic 59–71; PULSE 52–99; RESP 14–16; TEMP 36.3–36.8; O2SAT 97–99
--- NOTE | 2024-10-02 08:31 | PCM.DC.SUM ---
Providers Date of Admission: 10/01/24 Primary Care Physician: Dr. Leti Gomez MD Reason For Visit: LABOR Diagnosis Discharge Diagnosis (1) Vacuum extractor delivery, delivered: Status: Acute Code(s): O75.9 - Complication of labor and delivery, unspecified (2) Anemia affecting : Status: Acute Code(s): O99.019 - Anemia complicating , unspecified trimester (3) History of vacuum extraction assisted delivery: Status: Acute Code(s): Z87.59 - Personal history of other complications of , childbirth and the puerperium (4) Rh negative status during : Status: Acute Code(s): O26.899 - Other specified related conditions, unspecified trimester; Z67.91 - Unspecified blood type, Rh negative Plan CE 8-9 cm with bulging bag May desire epidural placement GBS negative Anticipate Dr. Meyer notified of admission and is collaborating physician Medications at Discharge Home Medications duloxetine 30 mg capsule,delayed release 30 mg PO DAILY 06/25/23 meclizine 25 mg tablet 25 mg PO 4X/DAY PRN PRN Dizziness #20 tabs 07/21/23 ondansetron 4 mg disintegrating tablet 4 mg PO Q6H PRN nausea and vomiting #10 tabs 07/21/23 Hospital Course Operations None Procedures None Summary of Care Provided Minutes Spent on Discharge: 15 Hospital Course: Patient had vaginal delivery. Hospital course was uneventful. Physical Exam Narrative Patient seen at bedside. Denies pain. Ambulating and voiding without difficulty. Lochia decreased. Desires discharge home today. Const alert and oriented x3 General Appearance: Negative for in distress HEENT normocephalic Eyes General Eye: normal appearance of both eyes Neck General: normal visual inspection Chest Chest: symmetrical chest wall rise Resp normal respiratory effort and normal air movement Effort and Inspection: symmetric chest movement; Negative for tachypneic Auscultation: clear to auscultation bilaterally Cardio regular rate and regular rhythm Peripheral Pulses: pulses 2+ throughout GI normal to inspection, nondistended, normoactive bowel sounds Narrative: Ice to perineum OB / External & Speculum: vaginal bleeding and other Lochia decreasing Uterus Palpation: uterus fundus firm (Below U) Extremity normal to inspection, full ROM and normal capillary refill Skin no rashes or lesions noted Neuro oriented x3, CN's II-XII intact bilaterally and gait normal Psych mental status grossly normal, thought process normal and activity/motor behavior normal Weight / BMI Weight Weight: 195 lb Body Mass Index (BMI) 33.5 ABG / Lab / Microbiology Data 10/01/24 05:40 Laboratory: Laboratory Results - last 24 hr 10/01/24 15:55: Screen NEGATIVE, Baby's Blood Type O POSITIVE, Baby's NEELA NEGATIVE D/C Instructions Discharge Activity: Return to Normal Activity, No Restrictions, May Drive, May Shower and May Take a Tub Bath (Warm water only. No bath salts, soaps, bubbles) May resume sexual activity in: 6-8 weeks Weight Bearing Status: Weight bearing as tolerated Call your doctor if you observe: Fever of 101 or Higher, Inability to urinate, Using more than 1 pad per hour, Shortness of breath, Dizziness, Chest pain, Calf discomfort and Uncontrolled pain DC O2, CPAP, BIPAP Needs Home O2 Discharge instructions: No Please Follow Up With: [facility] Taiwo BECKER When: 2 weeks in office or virtual Meaningful Use Info Meaningful Use Meaningful Use Diagnoses (Choose all that apply): None applicable Discharge Plan Admission Admit Date/Time: 10/01/24 05:33 Primary Reason for Your Visit: Labor and Delivery Attending Provider: Galilea Potter Primary Care Provider: Leti Gomez Discharge Orders/Prescriptions Prescriptions: Continued duloxetine 30 mg capsule,delayed release(DR/EC) 30 mg PO DAILY meclizine 25 mg tablet 25 mg PO 4X/DAY PRN PRN (Reason: Dizziness) Qty: 20 0RF ondansetron 4 mg tablet,disintegrating 4 mg PO Q6H PRN (Reason: nausea and vomiting) Qty: 10 0RF Referrals / Follow Up: Leti Gomez MD [Primary Care Provider] - Disposition Disposition (needs filled in before D/C Order can be placed): Home, Self Care
--- NOTE | 2024-10-07 12:42 | NURSING ---
Follow up phone call made, patient states she is feeling good. Denies any headaches, visual changes, flu-like symptoms, or Baby Blues. States her bleeding is decreasing. States that is going well, denies any questions or concerns. States that Brie is voiding and stooling lots. Denies any further questions or concerns at this time.
== END 2024-10-02 12:30 | disposition home or self-care (01) | DRG 560 ==
LOC: WPOUT 05:38 → WP 05:38
PROVIDERS: Advanced Practice Midwife; Admitting Provider Obstetrics & Gynecology; PCP Internal Medicine; Referring Provider Obstetrics & Gynecology; Visit Provider Obstetrics & Gynecology
DX: O41.8X30 Other specified disorders of amniotic fluid and membranes, third trimester, not applicable or unspecified (principal); Z37.0 Single live birth; O63.1 Prolonged second stage (of labor); F41.9 Anxiety disorder, unspecified; O99.02 Anemia complicating childbirth; O99.344 Other mental disorders complicating childbirth; O26.893 Other specified pregnancy related conditions, third trimester; Z67.11 Type A blood, Rh negative; O69.2XX0 Labor and delivery complicated by other cord entanglement, with compression, not applicable or unspecified; O75.81 Maternal exhaustion complicating labor and delivery; O77.0 Labor and delivery complicated by meconium in amniotic fluid; Z3A.38 38 weeks gestation of pregnancy; Z79.899 Other long term (current) drug therapy; Z87.59 Personal history of other complications of pregnancy, childbirth and the puerperium
CPT/HCPCS: 59025; 59050; 85025; 85461; 86780; 86850; 86900; 86901; 90384; 99221; G0378; J2405; J2790; J2791